=== PATIENT | female | born 1965 | race Caucasian/White ===

== ENCOUNTER 2022-09-10 09:29 | Outpatient (OUT) | payer OTHER, SELFPAY ==
[2022-09-10 11:02] LABS: Cholesterol 225 mg/dL (<=200); HDL Cholesterol 75 mg/dL (40-60); Triglycerides 60 mg/dL (<=150)
== END 2022-09-10 09:30 ==
LOC: LAB 09:33
PROVIDERS: PCP Family Medicine; Visit Provider Internal Medicine Cardiovascular Disease
DX: E78.5 Hyperlipidemia, unspecified (principal)
CPT/HCPCS: 36415; 80061

== ENCOUNTER 2022-10-03 07:33 | Outpatient (OUT) | payer OTHER, SELFPAY ==
[2022-10-03 08:32] LABS: Estimated Average Glucose 111 mg/dL; Glycohemoglobin A1C 5.5 % (4.5-6.2)
[2022-10-03 08:35] LABS: Basophils Absolute Auto 0.1 10^3/uL (0.0-0.1); Basophils Percent Auto 0.9 % (0.2-2.0); Eosinophils Absolute Auto 0.2 10^3/uL (0.0-0.7); Eosinophils Percent Auto 3.3 % (0.9-7.0); Hematocrit 42.5 % (36.0-48.0); Hemoglobin 13.8 g/dL (12.0-16.0); Immature Granulocytes Abs Auto 0.01 10^3/uL (0.00-0.03); Immature Granulocytes Pct Auto 0.2 % (0.0-0.5); Lymphocytes Absolute Auto 1.5 10^3/uL (1.2-3.8); Mean Corpuscular HGB Conc 32.5 g/dL (29.9-35.2); Mean Corpuscular Hemoglobin 29.4 pg (26.7-34.0); Mean Corpuscular Volume 90.4 fL (81.0-99.0); Mean Platelet Volume 9.8 fL (9.5-13.5); Monocytes Absolute Auto 0.4 10^3/uL (0.3-0.8); Monocytes Percent Auto 6.6 % (1.7-12.0); Neutrophils Absolute Auto 3.3 10^3/uL (1.4-6.5); Platelet Count 338 10^3/uL (150-450); Red Cell Distribution Width 12.3 % (11.0-15.0); White Blood Count 5.4 10^3/uL (4.0-11.0)
[2022-10-03 08:50] LABS: Bilirubin Urine NEGATIVE (NEGATIVE); Blood Urine MODERATE (NEGATIVE); Clarity Urine CLEAR (CLEAR); Color Urine LT. YELLOW (YELLOW); Glucose Urine UA NEGATIVE (NEGATIVE); Ketones Urine NEGATIVE (NEGATIVE); Leukocyte Esterase Urine TRACE (NEGATIVE); Nitrite Urine NEGATIVE (NEGATIVE); Protein Urine NEGATIVE (NEG/TRACE); Specific Gravity Urine 1.015 (1.005-1.025); Urobilinogen Urine 0.2 EU/dL (0.2-1.0)
[2022-10-03 08:57] LABS: Bacteria Urine TRACE #/HPF (NONE SEEN); Cast Seen? NONE SEEN #/LPF (NONE SEEN); Crystals Seen? None Seen #/HPF (None Seen); Mucus Urine NONE SEEN (NONE SEEN); Squamous Epithelial Cell Urine FEW #/LPF (NONE/RARE); WBC Urine 0-2 #/HPF (NONE SEEN)
[2022-10-03 10:54] LABS: Alanine Aminotransferase 31 U/L (14-59); Albumin Globulin Ratio 1.3; Albumin Level 4.2 g/dL (3.4-5.0); Alkaline Phosphatase 63 U/L (46-116); Aspartate Amino Transferase 18 U/L (15-37); Bilirubin Total 0.4 mg/dL (0.2-1.0); Calcium 9.2 mg/dL (8.5-10.1); Carbon Dioxide 29.4 mmol/L (21.0-32.0); Chloride 105 mmol/L (98-107); Estimated GFR (African America >60 (>=60); Estimated GFR (Non-African Ame >60 (>=60); Globulin 3.3 g/dL; Glucose 98 mg/dL (74-106); Potassium 4.4 mmol/L (3.5-5.1); Sodium 141 mmol/L (136-145); Thyroid Stimulating Hormone 1.003 uIU/mL (0.358-3.740); Total Protein 7.5 g/dL (6.4-8.2)
[2022-10-03 11:01] LABS: Free T4 1.01 ng/dL (0.76-1.46)
[2022-10-04 12:09] LABS: Insulin 7.9 uIU/mL (2.6-24.9)
[2022-10-04 14:32] LABS: Chol HDL Ratio 3.2; Cholesterol 216 mg/dL (<=200); HDL Cholesterol 67 mg/dL (40-60); Triglycerides 66 mg/dL (<=150); VLDL CHOLESTEROL 13.2 mg/dL
== END 2022-10-03 07:34 | disposition home or self-care (01) ==
LOC: LAB 07:35
PROVIDERS: PCP Family Medicine; Visit Provider Family Medicine
DX: Z00.00 Encounter for general adult medical examination without abnormal findings (principal)
CPT/HCPCS: 36415; 80053; 80061; 81001; 83036; 83525; 83540; 84439; 84443; 85025; 87086; 87150; 87186

== ENCOUNTER 2022-10-14 16:22 | Outpatient (OUT) | payer OTHER, SELFPAY ==
[2022-10-14 16:58] LABS: Bilirubin Urine NEGATIVE (NEGATIVE); Blood Urine MODERATE (NEGATIVE); Clarity Urine CLEAR (CLEAR); Color Urine LT. YELLOW (YELLOW); Glucose Urine UA NEGATIVE (NEGATIVE); Ketones Urine NEGATIVE (NEGATIVE); Leukocyte Esterase Urine NEGATIVE (NEGATIVE); Nitrite Urine NEGATIVE (NEGATIVE); Protein Urine NEGATIVE (NEG/TRACE); Urobilinogen Urine 0.2 EU/dL (0.2-1.0); pH Urine 5.5 (5.0-9.0)
[2022-10-14 17:04] LABS: Bacteria Urine NONE SEEN #/HPF (NONE SEEN); Cast Seen? NONE SEEN #/LPF (NONE SEEN); Crystals Seen? None Seen #/HPF (None Seen); Mucus Urine NONE SEEN (NONE SEEN); Squamous Epithelial Cell Urine FEW #/LPF (NONE/RARE); Urine Culture Indicated ALREADY ORDERED; WBC Urine NONE SEEN #/HPF (NONE SEEN)
== END 2022-10-14 16:23 | disposition home or self-care (01) ==
LOC: LAB 16:23
PROVIDERS: PCP Family Medicine; Visit Provider Family Medicine
DX: N30.00 Acute cystitis without hematuria (principal)
CPT/HCPCS: 81001; 87086

== ENCOUNTER 2022-11-06 10:05 | Outpatient (OUT) | payer OTHER, SELFPAY ==
[2022-11-06 10:31] LABS: Bilirubin Urine NEGATIVE (NEGATIVE); Blood Urine MODERATE (NEGATIVE); Clarity Urine CLEAR (CLEAR); Color Urine LT. YELLOW (YELLOW); Glucose Urine UA NEGATIVE (NEGATIVE); Ketones Urine NEGATIVE (NEGATIVE); Leukocyte Esterase Urine MODERATE (NEGATIVE); Nitrite Urine NEGATIVE (NEGATIVE); Protein Urine NEGATIVE (NEG/TRACE); Specific Gravity Urine <=1.005 (1.005-1.025); Urobilinogen Urine 0.2 EU/dL (0.2-1.0)
== END 2022-11-06 10:06 | disposition home or self-care (01) ==
LOC: LAB 10:06
PROVIDERS: PCP Family Medicine
DX: R39.9 Unspecified symptoms and signs involving the genitourinary system (principal)
CPT/HCPCS: 81003; 87086

== ENCOUNTER 2023-02-08 07:48 | Outpatient (OUT) | payer OTHER, SELFPAY ==
[2023-02-08 08:22] LABS: Basophils Percent Auto 0.2 % (0.2-2.0); Eosinophils Absolute Auto 0.4 10^3/uL (0.0-0.7); Eosinophils Percent Auto 3.4 % (0.9-7.0); Hemoglobin 13.8 g/dL (12.0-16.0); Immature Granulocytes Abs Auto 0.17 10^3/uL (0.00-0.03); Immature Granulocytes Pct Auto 1.3 % (0.0-0.5); Lymphocytes Absolute Auto 2.9 10^3/uL (1.2-3.8); Lymphocytes Percent Auto 22.8 % (20.5-60.0); Mean Corpuscular HGB Conc 32.9 g/dL (29.9-35.2); Mean Corpuscular Volume 88.2 fL (81.0-99.0); Mean Platelet Volume 9.5 fL (9.5-13.5); Monocytes Absolute Auto 0.8 10^3/uL (0.3-0.8); Monocytes Percent Auto 6.4 % (1.7-12.0); Neutrophils Absolute Auto 8.5 10^3/uL (1.4-6.5); Neutrophils Percent Auto 65.9 % (43.0-75.0); Platelet Count 350 10^3/uL (150-450); Red Blood Count 4.76 10^6/uL (4.20-5.40); Red Cell Distribution Width 12.6 % (11.0-15.0); White Blood Count 12.8 10^3/uL (4.0-11.0)
[2023-02-08 08:30] LABS: Mono Screen NEGATIVE (NEGATIVE)
[2023-02-08 08:41] LABS: Estimated Average Glucose 128 mg/dL; Glycohemoglobin A1C 6.1 % (4.5-6.2)
[2023-02-08 08:57] LABS: Alanine Aminotransferase 36 U/L (14-59); Albumin Globulin Ratio 1.1; Albumin Level 3.4 g/dL (3.4-5.0); Alkaline Phosphatase 65 U/L (46-116); Anion Gap 11.4; Aspartate Amino Transferase 14 U/L (15-37); BUN Creatinine Ratio 25.3; Bilirubin Total 0.3 mg/dL (0.2-1.0); Calcium 8.3 mg/dL (8.5-10.1); Carbon Dioxide 28.8 mmol/L (21.0-32.0); Chloride 103 mmol/L (98-107); Creatine Kinase 37 U/L (26-192); Estimated GFR (African America >60 (>=60); Estimated GFR (Non-African Ame >60 (>=60); Free T3 3.22 pg/mL (2.18-3.98); Globulin 3.2 g/dL; Glucose 105 mg/dL (74-106); Potassium 4.2 mmol/L (3.5-5.1); Sodium 139 mmol/L (136-145); Thyroid Stimulating Hormone 1.465 uIU/mL (0.358-3.740); Total Protein 6.6 g/dL (6.4-8.2)
[2023-02-10 11:13] LABS: Insulin 12.9 uIU/mL (2.6-24.9)
[2023-02-10 16:09] LABS: EBV Ab VCA, IgG 54.4 U/mL (0.0-17.9); EBV Ab VCA, IgM <36.0 U/mL (0.0-35.9); EBV Nuclear Antigen Ab, IgG <18.0 U/mL (0.0-17.9)
== END 2023-02-08 07:49 | disposition home or self-care (01) ==
PROVIDERS: PCP Family Medicine; Visit Provider Family Medicine
DX: U07.1 COVID-19 (principal); R53.83 Other fatigue; M79.10 Myalgia, unspecified site; R61 Generalized hyperhidrosis
CPT/HCPCS: 36415; 80053; 82306; 82550; 82607; 82746; 83036; 83525; 83540; 83880; 84436; 84443; 84481; 85025; 86308

== ENCOUNTER 2023-04-25 07:21 | Outpatient (OUT) | payer OTHER, SELFPAY ==
--- OUTSIDE RECORDS SUMMARY | 2023-04-25 07:24 | XMS_ITS | CCD ---
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 Name Role Phone VAMSI SERRANO Unavailable Unavailable MASTJANNA Unavailable Unavailable Mast, Janna E Unavailable Unavailable Unavailable Sera Lambert Primary Care Unavailable Jose Dangelo Attending Unavailable Jose Dangelo Admitting Unavailable Sera Lambert Primary Care Physician [phone] NILL ., DR LEMONS Admitting Unavailable NILL ., DR LEMONS Attending Unavailable HOY ., DR ZAMORA Primary Care Unavailable NILL ., DR LEMONS Consulting Unavailable SPENCER RAY Consulting Unavailable FAIZAN WILD Unavailable NILLCristo Attending Unavailable Sera Lambert Referring Unavailable Sera Lambert Referring Unavailable NILLCristo Attending Unavailable SCOTLCristo Attending Unavailable Cristo CROCKER Attending Unavailable Maggie, Dr. Noel Referring Unavaila ble Trabsusana, Dr. Noel Attending Unavaila ble Catherine, Dr. Janna Marti Primary Care Unavailabl PETE Reyna Admitting Unavailable PETE ROD Attending Unavailable SERA LAMBERT Primary Care Unavailable FAIZAN SNYDER AKHIL [id number] SERA Jordan Primary Care Unavailable SERA LAMBERT Primary Care Unavailable PETE ROD Referring Unavailable Allergies Allergy Classification Reported Allergen(s) Allergy Type Date of Onset Reaction(s) Facility (6 sources) Amoxicillin; Translations: [amoxicillin] Drug Allergy [facility] (disorder) [facility] (3 sources) atorvastatin; Translations: [atorvastatin] Drug Allergy [facility] y 250 DO Work Phone: (2 sources) ezetimibe; Translations: [Zetia] Drug Allergy [facility] y 250 DO Work Phone: (4 sources) Hmg-Coa Reductase Inhibitors (Statins); Translations: [Statins] Allergy to drug (finding) [facility] Repository (3 sources) oxyCODONE; Translations: [oxycodone] Drug Allergy [facility] y 250 DO Work Phone: (3 sources) Pravastatin; Translations: [Pravastatin Sodium TABS] Drug Allergy [facility] y 250 DO Work Phone: (1 source) Amoxicillin Drug Allergy 02-22-20 [facility] Repository (1 source) Aspirin Drug Allergy 02-22-20 [facility] Repository (2 sources) Codeine; Translations: [codeine] Drug Allergy 02-22-20 17 [facility] Repository (1 source) oxyCODONE Drug Allergy 02-22-20 [facility] Rep[facility] (3 sources) Acetaminophen / oxyCODONE; Translations: [acetaminophen-oxy codone] Drug Allergy Projectile vomiting (disorder) [facility] (3 sources) Aspirin / oxyCODONE; Translations: [aspirin-oxycodone ] Drug Allergy Projectile vomiting (disorder) [facility] (2 sources) Codeine; Translations: [codeine] Drug Allergy Edema (finding) [facility] [place] (2 sources) HMG-CoA reductase inhibitor; Translations: [statins] Drug allergy Unknown (qualifier value) [facility] (4 sources) Latex; Translations: [latex] Allergy to substance 12-23-19 15 Redness, Itching [facility] (3 sources) NITROFURANTOIN, MACROCRYSTALS / Nitrofurantoin, Monohydrate; Translations: [nitrofurantoin] Drug Allergy Joint pain (finding), Cutaneous eruption (morphologic abnormality) [facility] (1 source) Acetaminophen / oxyCODONE Drug Allergy 05-13-19 23 [facility] Repository (1 source) Adhesive agent Drug allergy (disorder) 12-23-19 15 [facility] Rep[facility] (1 source) Amoxicillin Drug Allergy 07-28-19 13 [facility] Repository (1 source) black walnut pollen extract Drug Allergy 05-13-19 23 [facility] Rep[facility] (1 source) Codeine Drug Allergy 07-28-19 13 [facility] Rep[facility] (1 source) Nitrofurantoin Drug Allergy 12-23-19 15 [facility] Rep[facility] (1 source) bandaids; Translations: [bandaids] Propensity to adverse reactions (disorder) [facility] Repository Medications Current Medications Medication Drug Class(es) Dates Sig (Normalized) Sig (Original) aspirin 81 mg delayed release oral tablet (5 sources) Platelet Aggregation Inhibitor, Nonsteroidal Anti-inflammatory Drug Start: 05-03-2022 take 1 tablet by mouth once daily aspirin 81 mg Oral EC Tab 81 mg = 1 tab(s), Oral, Daily, Refills(s) 0 Start Date: 05/03/22 Status: Ordered ezetimibe 10 mg oral tablet (5 sources) Dietary Cholesterol Absorption Inhibitor Start: 04-29-2022 take 1 tablet by mouth once daily Zetia 10 mg Tab 10 mg = 1 tab(s), Oral, Daily, Refills(s) 0 Start Date: 04/29/22 Status: Ordered Miralax (2 sources) Osmotic Laxative Start: 05-03-2022 take 17 g by mouth once daily MiraLax 17 gm, Oral, Daily, Refill(s) 0 Start Date: 05/03/22 Status: Ordered Completed/Discontinued Medications Medication Drug Class(es) Dates Sig (Normalized) Sig (Original) loratadine 10 mg oral tablet (3 sources) take 1 tablet by david th once daily Loratadine 10 MG Oral Tablet TAKE 1 TABLET DAILY. Quantity: 0 Refills: 0 Ordered: 22-May-2021 DO Active Problems Active Problems Problem Classification Problem Date Documented Da te Episodic/Chronic Abdominal hernia (2 sources) Diaphragmatic hernia without obstruction or gangrene; Translations: [Diaphragmatic hernia] Onset: 3 Episodic Abdominal pain (7 sources) Epigastric pain; Translations: [Epigastric pain] Onset: 3 Episodic Allergic reactions (1 source) Unspecified contact dermatitis, unspecified cause; Translations: [Unspecified contact dermatitis, unspecified cause] Onset: 3 Episodic Anal and rectal conditions (2 sources) Disorder of rectum 04-29-2022 Episodic Anxiety disorders (3 sources) Anxiety; Translations: [Anxiety disorder, unspecified] Onset: 3 10-25-2018 Chronic Calculus of urinary tract (2 sources) Kidney stone 07-27-2012 Episodic Coronary atherosclerosis and other heart disease (6 sources) Ischemic cardiomyopathy; Translations: [Generalized ischemic myocardial dysfunction] Onset: 8 09-02-2017 Chronic Disorders of lipid metabolism (3 sources) Hyperlipidemia; Translations: [Other and unspecified hyperlipidemia] Chronic Diverticulosis and diverticulitis (3 sources) Diverticulosis of large intestine without perforation or abscess without bleeding; Translations: [Diverticula of intestine] Onset: 3 Chronic Esophageal disorders (6 sources) Gastroesophageal reflux disease without esophagitis; Translations: [Gastro-esophageal reflux disease without esophagitis] Onset: 3 Chronic Gastritis and duodenitis (1 source) Unspecified chronic gastritis without bleeding; Translations: [UNS CHRONIC GASTRITIS W/O BLEEDING] Onset: 3 Chronic Genitourinary symptoms and ill-defined conditions (3 sources) Unspecified urinary incontinence; Translations: [Unspecified urinary incontinence] Onset: 3 Chronic Genitourinary symptoms and ill-defined conditions (13 sources) Dysuria; Translations: [H/O: urethral stricture] Onset: 3 10-25-2018 Episodic Mood disorders (2 sources) Depressive disorder 10-25-2018 Chronic Mood disorders (1 source) Mood disorders; Translations: [DEPRESSION UNSPECIFIED] Onset: 3 Other aftercare (1 source) 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; Translations: [[employer] CURRENT USE OF ASPIRIN] Onset: 3 Episodic Other aftercare (1 source) Other intermediate (current) drug therapy; Translations: [[employer] CURRENT DRUG THERAPY] Onset: 3 Episodic Other and ill-defined heart disease (5 sources) Takotsubo cardiomyopathy; Translations: [Takotsubo syndrome] 09-02-2017 Chronic Other and unspecified benign neoplasm (2 sources) Adrenal adenoma 04-29-2022 Episodic Other circulatory disease (2 sources) Low blood pressure 04-29-2022 Episodic Other connective tissue disease (2 sources) Plantar fasciitis 04-29-2022 Episodic Other female genital disorders (2 sources) Dysplasia of cervix 09-02-2017 Episodic Other gastrointestinal disorders (3 sources) Altered bowel function; Translations: [Change in bowel habit] Onset: 3 Episodic Other gastrointestinal disorders (2 sources) Constipation 04-29-2022 Episodic Other gastrointestinal disorders (1 source) Change in bowel habit; Translations: [CHANGE IN BOWEL HABIT] Onset: 3 Episodic Other nervous system disorders (1 source) Other acute postprocedural pain; Translations: [Other acute postprocedural pain] Onset: 3 Episodic Other nutritional; endocrine; and metabolic disorders (5 sources) Overweight in adulthood with body mass index of 25 or more but less than 30; Translations: [Overweight] 05-03-2022 Episodic Other upper respiratory disease (2 sources) Seasonal allergy 10-25-2018 Chronic Prolapse of female genital organs (9 sources) Cystocele, midline; Translations: [Rectocele] Onset: 3 Chronic Residual codes; unclassified (1 source) Acquired absence of other specified parts of digestive tract; Translations: [ACQ ABSENCE OTH PART DIGESTV TRACT] Onset: 3 Episodic Spondylosis; intervertebral disc disorders; other back problems (2 sources) Cervical disc disorder 04-29-2022 Chronic Unclassified (2 sources) Ischemic cardiomyopathy / I25.5(ICD-9) Onset: 8 Unclassified (1 source) Takotsubo syndrome / I51.81(ICD-9) Onset: 8 Unclassified (1 source) Encounter for screening mammogram for malignant neoplasm of breast; Translations: [Encounter for screening mammogram for malignant neoplasm of breast] Onset: 2 Unclassified (2 sources) Finding of sensation of bladder 10-25-2018 Past or Other Problems Problem Classification Problem Date Documented Da te Episodic/Chronic Unclassified (3 sources) Never smoked tobacco; Translations: [Never a smoker] Results Test Name Value Interpretation Reference Range Facility Basic Metabolic Profon 10-25 Anion gap [Moles/Vol] 10 mmol/L Normal 9-17 [facility] Comment on above: Performed By: #### BMP, CDP, LIP, LIVP, TROPI #### [place] [id number] [employer] Specialist: Kris Pardo MD Calcium [Mass/Vol] 9.3 mg/dL Normal 8.6-10.4 [facility] Comment on above: Performed By: #### BMP, CDP, LIP, LIVP, TROPI #### [place] [id number] [employer] Specialist: rKis Pardo MD Chloride [Moles/Vol] 101 mmol/L Normal 98-107 [facility] Comment on above: Performed By: #### BMP, CDP, LIP, LIVP, TROPI #### [place] [id number] [employer] Specialist: Kris Pardo MD CO2 [Moles/Vol] 28 mmol/L Normal 20-31 [facility] Comment on above: Performed By: #### BMP, CDP, LIP, LIVP, TROPI #### [place] [id number] [employer] Specialist: Kris Pardo MD Creatinine [Mass/Vol] 0.6 mg/dL Normal 0.5-0.9 [facility] Comment on above: Performed By: #### BMP, CDP, LIP, LIVP, TROPI #### [place] [id number] [employer] Specialist: Kris Pardo MD GFR/1.73 sq M.predicted among non-blacks MDRD (S/P/Bld) [Vol rate/Area] mL/min/{1.73_m2} Normal >60 [facility] Comment on above: Result Comment: These results are not intended for use in patients <18 years of age. eGFR results are calculated without a race factor using the 2020 CKD-EPI equation. Careful clinical correlation is recommended, particularly when comparing to results calculated using previous equations. The CKD-EPI equation is less accurate in patients with extremes of muscle mass, extra-renal metabolism of creatine, excessive creatine ingestion, or following therapy that affects renal tubular secretion. Performed By: #### B MP, CDP, LIP, LIVP, TROPI #### [place] [id number] [employer] Specialist: Kris Pardo MD Glucose [Mass/Vol] 102 mg/dL High 70-99 [facility] Comment on above: Performed By: #### BMP, CDP, LIP, LIVP, TROPI #### [place] [id number] [employer] Specialist: Kris Pardo MD Potassium [Moles/Vol] 4.3 mmol/L Normal 3.7-5.3 [facility] Comment on above: Performed By: #### BMP, CDP, LIP, LIVP, TROPI #### [place] [id number] [employer] Specialist: Kris Pardo MD Sodium [Moles/Vol] 139 mmol/L Normal 135-144 [facility] Comment on above: Performed By: #### BMP, CDP, LIP, LIVP, TROPI #### [place] [id number] [employer] Specialist: Kris Pardo MD Urea nitrogen [Mass/Vol] 13 mg/dL Normal 6-20 [facility] Comment on above: Performed By: #### BMP, CDP, LIP, LIVP, TROPI #### [place] [id number] [employer] Specialist: Kris Pardo MD CBC with Diffon 10-25-2022 Abs. Basophil 0.10 k/uL Normal 0.0-0.2 [facility] Comment on above: Performed By: #### BMP, CDP, LIP, LIVP, TROPI #### [place] [id number] [employer] Specialist: Kris Pardo MD Abs.Neutrophil (Seg) 7.10 k/uL Normal 1.8-7.7 [facility] Comment on above: Performed By: #### BMP, CDP, LIP, LIVP, TROPI #### [place] [id number] [employer] Specialist: Kris Pardo MD Basophils/100 WBC (Bld) 1 % Normal 0-2 [facility] Comment on above: Performed By: #### BMP, CDP, LIP, LIVP, TROPI #### [place] [id number] [employer] Specialist: Kris Pardo MD Eosinophils (Bld) [#/Vol] 0.50 10*3/uL High 0.0-0.4 [facility] Comment on above: Performed By: #### BMP, CDP, LIP, LIVP, TROPI #### [place] [id number] [employer] Specialist: Kris Pardo MD Eosinophils/100 WBC (Bld) 5 % High 1-4 [facility] Comment on above: Performed By: #### BMP, CDP, LIP, LIVP, TROPI #### [place] [id number] [employer] Specialist: Kris Pardo MD Erythrocyte distribution width (RBC) [Ratio] 12.9 % Normal 12.5-15.4 [facility] Comment on above: Performed By: #### BMP, CDP, LIP, LIVP, TROPI #### [place] [id number] [employer] Specialist: Kris Pardo MD Hematocrit (Bld) [Volume fraction] 36.9 % Normal 36-46 [facility] Comment on above: Performed By: #### BMP, CDP, LIP, LIVP, TROPI #### [place] [id number] [employer] Specialist: Kris Pardo MD Hemoglobin (Bld) [Mass/Vol] 12.5 g/dL Normal 12.0-16.0 [facility] Comment on above: Performed By: #### BMP, CDP, LIP, LIVP, TROPI #### [place] [id number] [employer] Specialist: Kris Pardo MD Lymphocytes (Bld) [#/Vol] 1.20 10*3/uL Normal 1.0-4.8 [facility] Comment on above: Performed By: #### BMP, CDP, LIP, LIVP, TROPI #### [place] [address] [employer] Specialist: Kris Pardo MD Lymphocytes/100 WBC (Bld) 13 % Low 24-44 [facility] Comment on above: Performed By: #### BMP, CDP, LIP, LIVP, TROPI #### [place] [id number] [employer] Specialist: Kris Pardo MD MCH (RBC) [Entitic mass] 29.9 pg Normal 26-34 [facility] Comment on above: Performed By: #### BMP, CDP, LIP, LIVP, TROPI #### [place] [id number] [employer] Specialist: Kris Pardo MD MCHC (RBC) [Mass/Vol] 33.9 g/dL Normal 31-37 [facility] Comment on above: Performed By: #### BMP, CDP, LIP, LIVP, TROPI #### [place] [id number] [employer] Specialist: Kris Pardo MD MCV (RBC) [Entitic vol] 88.0 fL Normal 80-100 [facility] Comment on above: Performed By: #### BMP, CDP, LIP, LIVP, TROPI #### [place] [id number] [employer] Specialist: Kris Pardo MD Monocytes (Bld) [#/Vol] 0.60 10*3/uL Normal 0.1-1.2 [facility] Comment on above: Performed By: #### BMP, CDP, LIP, LIVP, TROPI #### [place] [id number] [employer] Specialist: Kris Pardo MD Monocytes/100 WBC (Bld) 6 % Normal 2-11 [facility] Comment on above: Performed By: #### BMP, CDP, LIP, LIVP, TROPI #### [place] [id number] [employer] Specialist: Kris Pardo MD Neutrophil (Seg) 75 % High 36-66 [facility] Comment on above: Performed By: #### BMP, CDP, LIP, LIVP, TROPI #### [place] [id number] [employer] Specialist: Kris Pardo MD Platelet mean volume (Bld) [Entitic vol] 7.6 fL Normal 6.0-12.0 [facility] Comment on above: Performed By: #### BMP, CDP, LIP, LIVP, TROPI #### [place] [id number] [employer] Specialist: Kris Pardo MD Platelets (Bld) [#/Vol] 287 10*3/uL Normal 140-450 [facility] Comment on above: Performed By: #### BMP, CDP, LIP, LIVP, TROPI #### [place] [id number] [employer] Specialist: Kris Pardo MD RBC (Bld) [#/Vol] 4.20 10*6/uL Normal 4.0-5.2 [facility] Comment on above: Performed By: #### BMP, CDP, LIP, LIVP, TROPI #### [place] [id number] [employer] Specialist: Kris Pardo MD WBC (Bld) [#/Vol] 9.4 10*3/uL Normal 3.5-11.0 [facility] Comment on above: Performed By: #### BMP, CDP, LIP, LIVP, TROPI #### [place] [id number] [employer] Specialist: Kris Pardo MD CT ABDOMEN PELVIS W IV CONTR Carol 10-25-2022 CT ABDOMEN PELVIS W IV CONTRAST EXAMINATION: CT OF THE ABDOMEN AND PELVIS WITH CONTRAST 10/25/2022 2:13 pm TECHNIQUE: CT of the abdomen and pelvis was performed with the administration of intravenous contrast. Multiplanar reformatted images are provided for review. Automated exposure control, iterative reconstruction, and/or weight based adjustment of the mA/kV was utilized to reduce the radiation dose to as low as reasonably achievable. COMPARISON: None. HISTORY: ORDERING SYSTEM PROVIDED HISTORY: post op hysterectomy day 4 - abdominal and low back pain TECHNOLOGIST PROVIDED HISTORY: post op hysterectomy day 4 - abdominal and low back pain Decision Support Exception - unselect if not a suspected or confirmed emergency medical condition->Emergency Medical Condition (MA) Reason for Exam: post op hyst pain FINDINGS: Lower Chest: The lung bases are without consolidation or effusion. The visualized cardiac structures are unremarkable. Organs: The liver and spleen are normal size and overall attenuation. The gallbladder has been removed. The pancreas and adrenal glands are unremarkable. The kidneys are without obstructive uropathy. The urinary bladder contains a Jarvis catheter. GI/Bowel: The stomach is unremarkable. Loops of small bowel are normal in caliber without evidence for obstruction. The colon contains air and fecal residue. There are uncomplicated diverticula. There is no free air or free fluid. Pelvis: There is minimal nonspecific stranding within the pelvis that is likely postoperative in nature. Peritoneum/Retroperitoneum: The psoas muscles are symmetric. The abdominal aorta is normal in caliber. The inferior vena cava is unremarkable. There is no retroperitoneal or mesenteric adenopathy. Bones/Soft Tissues: The extra-abdominal soft tissues are unremarkable. There is no acute osseous abnormality. IMPRESSION: No acute abdominal or pelvic abnormality. Minimal nonspecific stranding in the pelvis that is likely postoperative in nature. Few scattered uncomplicated colonic diverticula. Interpreted by: Saeed Ortega MD Signed by: Saeed Ortega MD 10/25/22 Final result Normal [facility] Lipaseon 10-25-2022 Lipase [Catalytic activity/Vol] 26 U/L Normal 13-60 [facility] Comment on above: Performed By: #### BMP, CDP, LIP, LIVP, TROPI #### [place] [id number] [place] [address] [employer] Specialist: Kris Pardo MD Liver Profileon 10-25-2022 Albumin [Mass/Vol] 4.2 g/dL Normal 3.5-5.2 [facility] Comment on above: Performed By: #### BMP, CDP, LIP, LIVP, TROPI #### [facility] [address] [place] [address] [employer] Specialist: Kris Pardo MD Albumin/Glob Ratio 1.7 Normal 1.0-2.5 [facility] Comment on above: Performed By: #### BMP, CDP, LIP, LIVP, TROPI #### [place] [id number] [employer] Specialist: Kris Pardo MD Alkaline Phos 67 U/L Normal 35-104 [facility] Comment on above: Performed By: #### BMP, CDP, LIP, LIVP, TROPI #### [place] [id number] [employer] Specialist: Kris Pardo MD ALT [Catalytic activity/Vol] 23 U/L Normal 5-33 [facility] Comment on above: Performed By: #### BMP, CDP, LIP, LIVP, TROPI #### [place] [id number] [employer] Specialist: Kris Pardo MD AST [Catalytic activity/Vol] 21 U/L Normal <32 [facility] Comment on above: Performed By: #### BMP, CDP, LIP, LIVP, TROPI #### [place] [id number] [employer] Specialist: Kris Pardo MD Bilirubin [Mass/Vol] 0.3 mg/dL Normal 0.3-1.2 [facility] Comment on above: Performed By: #### BMP, CDP, LIP, LIVP, TROPI #### [place] [id number] [employer] Specialist: Kris Pardo MD Bilirubin, Indirect 0.2 mg/dL Normal 0.0-1.0 [facility] Comment on above: Performed By: #### BMP, CDP, LIP, LIVP, TROPI #### [place] [id number] [employer] Specialist: Kris Pardo MD Bilirubin.indire ct [Mass/Vol] 0.1 mg/dL Normal <0.3 [facility] Comment on above: Performed By: #### BMP, CDP, LIP, LIVP, TROPI #### [place] [id number] [employer] Specialist: Kris Pardo MD Protein [Mass/Vol] 6.7 g/dL Normal 6.4-8.3 [facility] Comment on above: Performed By: #### BMP, CDP, LIP, LIVP, TROPI #### [place] [id number] [employer] Specialist: Kris Pardo MD Troponinon 10-25-2022 Troponin, High Sens 7 ng/L Normal 0-14 [facility] Comment on above: Result Comment: High Sensitivity Troponi n values cannot be compared with other Troponin methodologies. Performed By: #### B MP, CDP, LIP, LIVP, TROPI #### [place] [id number] [employer] Specialist: Kris Pardo MD UA w/Reflex Cultureon 2022 Bilirubin, SemiQt,Ur Negative Normal NEG [facility] Comment on above: Performed By: #### TYS #### [place] [address] [employer] Specialist: Kris Pardo MD Blood, Urine MODERATE Abnormal NEG [facility] Comment on above: Performed By: #### TYS #### [place] [id number] [employer] Specialist: Kris Pardo MD Clarity (U) Clear Normal CLEAR [facility] Comment on above: Performed By: #### TYS #### [place] [id number] [employer] Specialist: Kris Pardo MD Color (U) Yellow Normal YEL [facility] Comment on above: Performed By: #### TYS #### [address] [id number] [employer] Specialist: Kris Pardo MD Glucose Ql (U) Negative Normal NEG [facility] Comment on above: Performed By: #### TYS #### [place] [id number] [employer] Specialist: Kris Pardo MD Ketones Ql (U) Negative Normal NEG [facility] Comment on above: Performed By: #### TYS #### [place] [address] [employer] Specialist: Kris Pardo MD Leukocyte esterase Test strip Ql (U) Negative Normal NEG [facility] Comment on above: Performed By: #### TYS #### [place] [address] [employer] Specialist: Kris Pardo MD Nitrite,Ur Negative Normal NEG [facility] Comment on above: Performed By: #### TYS #### [place] [address] [employer] Specialist: Kris Pardo MD PH,Ur 7.0 Normal 5.0-8.0 [facility] Comment on above: Performed By: #### TYS #### [place] [id number] [employer] Specialist: Kris Pardo MD Protein Ql (U) Negative Normal NEG [facility] Comment on above: Performed By: #### TYS #### [place] [address] [employer] Specialist: Kris Pardo MD Spec. [place],Ur 1.006 Normal 1.005-1.030 [facility] Comment on above: Performed By: #### TYS #### [place] [address] [employer] Specialist: Kris Pardo MD Urobilinogen,Ur Normal Normal 0.0-1.0 [facility] Comment on above: Performed By: #### TYS #### [place] [address] [employer] Specialist: Kris Pardo MD Urinalysis,Microon 3 Bacteria FEW Abnormal NONE [facility] Comment on above: Performed By: #### TYS #### [place] [address] [employer] Specialist: Kris Pardo MD Epithelial cells LM Ql (Urine sed) 0 TO 2 Normal 0-5 [facility] Comment on above: Performed By: #### TYS #### [place] [address] [employer] Specialist: Kris Pardo MD Other Observations Utilizing a urinalysis as the only screening method to exclude a potential Abnormal NREQ [facility] Comment on above: Result Comment: uropathogen can be unrel iable in many patient populations. Rapid screening tests are less sensitive than culture and if UTI is a clinical possibility, culture should be considered despite a negative urinalysis. Performed By: #### T YS #### [place] [address] [employer] Specialist: Kris Pardo MD Urine RBC's 20 TO 50 Normal 0-2 [facility] Comment on above: Performed By: #### TYS #### [place] [address] [employer] Specialist: Kris Pardo MD Urine WBC's 0 TO 2 Normal 0-5 [facility] Comment on above: Performed By: #### TYS #### [place] [address] [employer] Specialist: Kris Pardo MD Hgb/Hcton 10-21-2022 Hematocrit (Bld) [Volume fraction] 38.0 % Normal 36-46 [facility] Comment on above: Performed By: #### HH #### [place] [address] [employer] Specialist: Kris Pardo MD Hemoglobin (Bld) [Mass/Vol] 12.6 g/dL Normal 12.0-16.0 [facility] Comment on above: Performed By: #### HH #### [place] [address] [employer] Specialist: Kris Pardo MD OPERATIVE REPORTon OPERATIVE REPORT [address] [address] OPERATIVE REPORT PATIENT NAME: CHERYL HECTOR : 1965 MED REC NO: [id number] ROOM: ACCOUNT NO: [id number] ADMIT DATE: 10/21/2022 PROVIDER: Pete Rod DO DATE OF PROCEDURE: 10/21/2022 INDICATIONS FOR SURGERY: Symptomatic pelvic organ prolapse unamenable to conservative therapy, stress urinary incontinence with nonemergent intrinsic sphincter deficiency. PREOPERATIVE DIAGNOSES: Grade 3 uterine prolapse with grade 3 cystocele, grade 2 rectocele, poor tissue turgor, stress urinary incontinence with nonemergent intrinsic sphincter deficiency, perineal deficiency with introital gaping. PROCEDURE PERFORMED: Robotic-assisted laparoscopic hysterectomy with bilateral salpingectomy, internal [place] culdoplasty with uterosacral suspension and enterocele repair, anterior colporrhaphy, posterior colpoperineorrhaphy for gaping perineum, cystourethroscopy with filling cystometrogram and Bulkamid transurethral bulking injection therapy. SURGEON: Pete Rod DO ASSISTANTS: Kirsten Freeman DO and Fernando , DO. ANESTHESIA: General endotracheal. FINDINGS: As above. SPECIMENS: Uterus, cervix, fallopian tubes, vaginal mucosa. COMPLICATIONS: None. BLOOD LOSS: 30 mL. DRAINS: Jarvis catheter. IMPLANTS: 2 mL of Bulkamid. COURSE: Prior to the procedure, risks and benefits of the procedure explained to the patient. The patient understood and signed informed consent under no duress or confusion. She received a preoperative antibiotic and EPC cuffs were functional. OPERATIVE PROCEDURE: She was taken back to the OR and prepped and draped in a sterile fashion in dorsal lithotomy position under general anesthesia. The urinary bladder was drained with Jarvis catheter. A [employer] uterine manipulator was placed without incident. The tissue turgor was extremely poor and her prolapse seemed to accentuate more so than in the office. The legs were lowered. With the patient in supine position and then after a surgical time-out was taken and an appropriate prepping was done, an infraumbilical skin incision was made and a Veress needle introduced into the intraperitoneal cavity. A saline test confirmed appropriate placement and adequate CO2 gas insufflation followed for an operative pneumoperitoneum. The Veress was exchanged for an 8-mm bladeless trocar, which was placed atraumatically and confirmed. The patient was tipped in steep Trendelenburg position. The 8-mm ports were placed in the right and left lower quadrants and a 12-mm port was placed in the right upper quadrant as an accessory assistant buyer port. The robot was docked with arms one and three using bipolar [place] forceps and monopolar scissors. The survey of the abdominopelvic contents was negative except for some small excrescences on the fallopian tubes, but otherwise all anatomy looked normal. There was a sizeable enterocele. The utero-ovarian, round and broad ligaments were clamped, fulgurated and cut down to the level of the uterine vessels. The bladder flap was taken down anteriorly and uterosacral ligaments were transected posteriorly. Ureters were found to be out of the way. The bladder flap was taken down to the point where the vaginal cuff could be appreciated anteriorly and posteriorly. Colpotomy was made posteriorly and 360-degree transection of the cervix away from the vaginal cuff was made to separate the uterus and cervix and delivered vaginally. Tubal structures were drawn into the midline, excised and delivered vaginally. Ovaries were benign and left in place. The vaginal cuff was then closed with [id number] mucosal-mucosal Vicryl sutures incorporating the cuff angles into the cardinal ligaments for support. A 0 PDS suture was then used to complete an internal Rae culdoplasty with high-multi suture suspension and uterosacral suspension. This helped to obliterate the enterocele sac when cinching the sutures together. The bladder was extremely thin at the dome. One could almost appreciate translucency of the Jarvis through it. We were very careful with judicious use of any cautery, but this area deemed to oversew to thicken up the muscularis and submucosa to help try and prevent any fistula for making a connection to the vaginal cuff. This was done with 2-0 Vicryl suture to buildup the dome of the bladder. No cystotomies were noted and there was approximately 1-1/2 cm of space away from that and that of the vaginal cuff. The cuff was then re-peritonealized with a running 2-0 Vicryl suture. A low-pressure test confirmed excellent hemostasis and the pelvis was irrigated and aspirated with an adequate amount of saline. Robotic arms were undocked and trocars were utilized to visualize the right upper quadrant. The fascia was closed with 1-0 Vicryl suture. No defects were noted using a Edward-Morrison fascial closure (more content not included)... Normal [facility] Surgical Pathologyon 023 Surgical Pathology (NOTE) Path Number: [id number] -- Diagnosis -- A. UTERUS, CERVIX, AND BILATERAL FALLOPIAN TUBES: - Inactive endometrium. - Focal adenomyosis. - Numerous leiomyomata. - Unremarkable cervix. - Bilateral fallopian tubes with benign paratubal cysts. B. VAGINAL MUCOSA: Benign squamous mucosa. Una Viera M.D. Electronically Signed Out kmg210/24/2022 Clinical Information Pre-op Diagnosis: URINARY INCONTINENCE, UNSPECIFIED TYPE, URINARY FREQUENCY, CYSTOCELE MIDLINE Operative Findings: UTERUS, CERVIX AND BILATERAL FALLOPIAN TUBES; VAGINAL MUCOSA Operation Performed: LAPAROSCOPIC ROBOTIC ASSISTED VAGINAL HYSTERECTOMY WITH BILATERAL SALPINGECTOMY, ANTERIOR COLPORRHAPHY AND POSTERIOR COLPOPERINEORRHAPHY CYSTOSCOPY WITH BULKAMID INJECTION tm Source of Specimen A: UTERUS, CERVIX, AND BILATERAL FALLOPIAN TUBES B: VAGINAL MUCOSA Gross Description A. CHERYL HECTOR, UTERUS, CERVIX AND BILATERAL FALLOPIAN TUBES Received in formalin is a 64 gram uterus and cervix (9.0 cm cervix-fundus x 4.0 cm cornu-cornu x 3.3 cm anterior-posterior). The uterine serosa is meza-pink and hyperemic with few anterior subserosal nodules (anterior = blue and posterior = black). There is a 3.4 x 2.8 cm pink-calvillo, wrinkled ectocervix that surrounds a 0.7 cm circular os. The specimen is bivalved to reveal a 3.5 x 2.0 cm endometrial cavity. The cavity is lined by a meza-pink, hyperemic and flat mucosa that averages < 0.1 cm in thickness. The posterior cavity demonstrates a 0.7 cm pedunculated mucosal polyp and a 0.6 cm sessile mucosal polyp. These polyps clear the nearest paracervical margin by > 2.0 cm. The mucosal polyps are superficially attached and do not grossly extend into the underlying myometrium. The myometrium is meza-pink, rubbery and measures up to 1.7 cm in thickness. Multiple intramural and subserosal nodules are identified measuring up 1.1 cm. These nodules demonstrate meza-white, whorled cut surfaces. No hemorrhage or necrosis is identified. The cervix is lined by a meza, corrugated mucosa. Sectioning of the cervix reveals meza-red, rubbery cut surfaces. Also received within the specimen container are two unoriented and detached fimbriated fallopian tubes (3.9 to 4.5 cm in length x 0.7 to 0.9 cm in diameter). The fallopian tube serosa is meza-pink and smooth with multiple paratubal cysts measuring up to 0.8 cm and contain cloudy mucoid material. Sectioning of the fallopian tubes reveals a pinpoint to stellate lumen lined by a meza-pink, soft mucosa. Shactor sections are submitted in [facility] as follows: 1 anterior cervix 2 posterior cervix 3 endomyometrial polyps 4 anterior endomyometrium 5 posterior endomyometrium 6-7 intramural and subserosal nodules, chain sales representative 8-9 one entire fallopian tube 10-12 one entire fallopian tube. B. CHERYL HECTOR VAGINAL MUCOSA Received in formalin are three fragments of meza-calvillo, wrinkled and ragged vaginal mucosa ranging from 1.6 to 7.5 cm. Sectioning reveals meza-pink, rubbery cut surfaces with no obvious masses or lesions identified. Shactor sections 1c. tm Microscopic Description A, B. Microscopic examination performed. Processing Lab: [address] [address] Interpretation Performed at [address] [address] SURGICAL PATHOLOGY CONSULTATION Patient Name: CHERYL HECTOR [facility] Rec: [id number] [facility] CONSULTING PATHOLOGISTS [facility] ANATOMIC PATHOLOGY [facility] [place], [place] [address] Normal [facility] Type + Screenon 10-21-2022 Type + Screen Sample Expiration 10/24/2022,2359 Arm Band Number [id number] ABO/Rh(D) O POSITIVE Antibody Screen NEGATIVE [facility] Comment on above: Performed By: #### TYS #### [address] [address] [employer] Specialist: Kris Pardo MD Type + Screenon 10-14-2022 Type + Screen Sample Expiration 10/24/2022,2359 Arm Band Number [id number] ABO/Rh(D) O POSITIVE Antibody Screen NEGATIVE Normal [facility] Comment on above: Performed By: #### TYS #### [address] [address] [employer] Specialist: Kris Pardo MD Office Visit (Cardiology)on 09-12-2022 Follow-up visit Diagnoses/Problems Assessed Takotsubo syndrome (429.83) (I51.81) Hyperlipidemia (272.4) (E78.5) Overweight with body mass index (BMI) of 28 to 28.9 in adult (278.02,V85.24) (E66.3,Z68.28) Never a smoker Pre-operative cardiovascular examination (V7.81) (Z01.810) Orders Hyperlipidemia Changed: From Zetia 10 MG Oral Tablet TAKE 1 TABLET AT BEDTIME To Ezetimibe 10 MG Oral Tablet (Zetia) TAKE 1 TABLET AT BEDTIME Overweight with body mass index (BMI) of 28 to 28.9 in adult Healthy Weight Tips; Status:Complete - Retrospective Authorization; Done: 12Sep2022 Some eating tips that can help you lose weight.; Status:Complete - Retrospective Authorization; Done: 12Sep2022 Pre-operative cardiovascular examination IO EKG Electrocardiogram- 12 Lead; Status:Complete; Done: 12Sep2022 SocHx: Never a smoker Tobacco Use Screening; Status:Complete; Done: 12Sep2022 Takotsubo syndrome Changed: From Aspirin EC 81 MG TBEC TAKE 1 TABLET DAILY DIRECTED To Aspirin 81 MG Oral Tablet Delayed Release TAKE 1 TABLET DAILY Patient Instructions Please bring all medicines, vitamins, and herbal supplements with you when you come to the office. Prescriptions will not be filled unless you are compliant with your follow up appointments or have a follow up appointment scheduled as per instruction of your physician. Refills should be requested at the time of your visit. Patient can proceed with surgery from a cardiac standpoint.Can hold aspirin one week prior Follow up in 9 months The provider reviewed the following test(s) and result(s) with the patient: ECG Chief Complaint CHERYL HECTOR is being seen for poc hysterectomy. History of Present Illness Patient is here for follow-up continue management for history of stress cardiomyopathy, hyperlipidemia and overweight. She reports she is feeling well. She denies any cardiac complaint. She described functional class I. She denies lightheadedness, dizziness or syncope. She requested clearance for hysterectomy. ASSESSMENT: 1. Prior presentation with stress cardiomyopathy/takotsubo syndrome, echocardiogram subsequently showed normal ejection fraction. She denies any symptoms and describe functional class I. 2. Hyperlipidemia with documented history of intolerance to statin. Seem to tolerated Zetia 3. Mildly overweight. With recent weight gain 4. Prior report of fatigue has improved preoperative risk assessment for hysterectomy. Patient is functional class I. She has normal LV systolic function and no coronary artery disease. Her operative risk is acceptable Plan 1. Patient will remain on the same medication. Patient agreed to go back to the area 2. Patient was counseled regarding risk factor modification 3. We'll see him back in the office in 1 year I will try to retrieve her recent labs from [place] 4. The patient was advised to lose weight and exercise. 5. I reviewed with patient preoperative cardiac risk for her upcoming hysterectomy. I believe her operative risk is acceptable and she can proceed she was given permission to hold aspirin for 7 days prior to surgery Surgical History Problems History of Cardiac catheterization History of Cervical surgery History of Cholecystectomy History of Complete colonoscopy History of Cystoscopy History of Urethropexy Current Meds Medication NameInstruction Aspirin EC 81 MG TBECTAKE 1 TABLET DAILY DIRECTED. Loratadine 10 MG Oral TabletTAKE 1 TABLET DAILY. Zetia 10 MG Oral TabletTAKE 1 TABLET AT BEDTIME. Patient did not bring medication list or bottles. Updated verbally with patient Allergies Medication amoxicillin Recorded By: Asmita Wilkins; 03/16/2021 10:50:34 AM hives, itching atorvastatin Recorded By: Asmita Wilkins; 03/16/2021 10:50:34 AM myalgias oxycodone Recorded By: Asmita Wilkins; 03/16/2021 10:50:34 AM Pravastatin Sodium TABS Recorded By: Asmita Wilkins; 03/16/2021 10:50:34 AM myalgias Statins Recorded By: Asmita Wilkins; 03/16/2021 10:50:34 AM myalgias Social History Problems Caffeine use (V49.89) (Z78.9) Never a smoker No illicit drug use Social alcohol use (V49.89) (Z78.9) Review of Systems Constitutional: not feeling tired. Cardiovascular: no intermittent leg claudication and as noted in HPI. Respiratory: no cough and no shortness of breath. Gastrointestinal: no change in bowel habits and no blood in stools. Integumentary: no skin rashes. Neurological: no seizures and no frequent falls. All other systems have been reviewed and are negative for complaint. Vitals Vital Signs Recorded: 12Sep2022 12:04PM Heart Rate70, Apical Ksajxadv094, LUE, Sitting Lsienkyla97, LUE, Sitting Height5 ft 4 in Kogrrl408 lb BMI Bndjcocixl66.67 kg/m2 BSA Calculated1.81 Tobacco Useb) No PHQ-2 #1. Over the last 2 weeks have you felt down, depressed or hopeless? (If yes, answer PHQ-9 below)No PHQ-2 #2. Over the last 2 weeks have you felt little interest or pleasure in doin (more content not included)... Normal [facility] Tobacco Screening.on 023 Adult depression screening assessment No [facility] [address] DO Work Phone: Fall risk assessment a) No falls within the last year [facility] [address] DO Work Phone: Tobacco use status [facility] b) [facility] DO Work Phone: Ambulatory Visit Summaryon 0 06-05-2022 Ambulatory Visit Summary CHERYL HECTOR Abeba :1965 Visit Date:06/05/2022 Ambulatory Visit Instructions Your Care Team Attending Physician - BRENDA OSTO, Cristo Arias Primary Care Physician - Sera Lambert MD This Is Your Medications List Contact prescribing physician if questions or concerns aspirin (aspirin 81 mg Oral EC Tab) ezetimibe (Zetia 10 mg Tab) polyethylene glycol 3350 (MiraLax) Procedures Performed Colonoscopy (05/29/2022), EGD - Esophagogastroduodenoscopy (05/29/2022), LEEP (09/12/2017), Cystourethroscopy with dilation of urethral stricture (12/29/2014), Cystourethroscopy with dilation of urethral stricture (02/21/2011), Cardiac catheterisation, Cholecystectomy, Suspension of bladder, Tonsillectomy, ureteral dilatation. Medications What How Much When Instructions Unchanged aspirin (aspirin 81 mg Oral EC Tab) 1 Tablets By Mouth Every day Contact prescribing physician if questions or concerns Unchanged ezetimibe (Zetia 10 mg Tab) 1 Tablets By Mouth Every day Contact prescribing physician if questions or concerns Unchanged polyethylene glycol 3350 (MiraLax) 17 Gram By Mouth Every day Contact prescribing physician if questions or concerns Allergies Percocet 5/325 (Projectile vomiting) Percodan (Projectile vomiting) amoxicillin (Hives) Latex (Redness, Itching) Macrobid (Joint pain, Rash) codeine (Edema) statins (Unknown) Problems Ongoing - Any problem that you are currently receiving treatment for. Adrenal adenoma Anxiety BMI 29.0-29.9,adult Cervical disc disease Change in bowel habits Constipation Depression Dysuria Epigastric pain Feeling of incomplete bladder emptying GERD (gastroesophageal reflux disease) H/O urethral stricture Hx of myocardial infarction Microscopic hematuria Rectocele Seasonal allergies Urine frequency Weak urinary stream Historical - Any problem that you are no longer receiving treatment for. Cholecystectomy Hypotension Kidney stone Plantar fasciitis Normal [facility] General Surgery Office/Clini c Noteon 06-05-2022 General Surgery Office/Clinic Note Chief Complaint post operative follow up HPI Staff 7 day post operative follow up post colonoscopy and EGD with antral biopsy. Epigastric pain and bowel changes have resolved. History of Present Illness s/p EGD and colonoscopy; mild antral gastritis, bx negative for H pylori, small hiatal hernia; no esophagitis; colonoscopy with sigmoid diverticulosis. Review of Systems ROS - Provider Constitutional: no fever, no sweats, no weight loss. Eyes: no glasses, no blurred vision, no visual loss. ENMT: no dentures, no hoarseness, no swallowing difficulties, no hearing loss, no ear infection(s), no nose bleeds. Cardiovascular: normal blood pressure, no chest pain, regular heartbeat, no heart murmur. Respiratory: no shortness of breath, no cough, no asthma, no wheezing. Gastrointestinal: no nausea, no vomiting, no diarrhea, no constipation, no blood in stool, no change in bowel habits, no abdominal pain, no hepatitis. Genitourinary: no kidney stones, no urine infection, no dysuria. Musculoskeletal: no pain, no weakness. Skin: no changing moles, no rash, no skin lumps. Neurologic: no seizures, no epilepsy, no headache. Psychiatric: no emotional or psychiatric problem. Heme/Lymph: no bleeding problems, no anemia, no blood clots, no transfusions. Allergy/Immunologic: no swollen lymph nodes/glands, no IV drug abuse. Other: Additional ROS info: Except as noted in the above Review of Systems and in the History of Present Illness, all other systems have been reviewed and are negative or noncontributory. Assessment/Plan 1. Hiatal hernia with GERD without esophagitis (K44.9: Diaphragmatic hernia without obstruction or gangrene) improved with over the counter Prevacid and dietary changes. 2. Sigmoid diverticulosis (K57.30: Diverticulosis of large intestine without perforation or abscess without bleeding) high fiber diet and daily fiber supplement Gastro-esophageal reflux disease without esophagitis (K21.9: Gastro-esophageal reflux disease without esophagitis) Follow-up No qualifying data available Problem List/Past Medical History Ongoing Adrenal adenoma Anxiety BMI 29.0-29.9,adult Cervical disc disease Change in bowel habits Constipation Depression Dysuria Epigastric pain Feeling of incomplete bladder emptying GERD (gastroesophageal reflux disease) H/O urethral stricture Hiatal hernia with GERD without esophagitis Hx of myocardial infarction Microscopic hematuria Rectocele Seasonal allergies Sigmoid diverticulosis Urine frequency Weak urinary stream Historical Cholecystectomy Hypotension Kidney stone Plantar fasciitis Procedure/Surgical History Colonoscopy (05/29/2022), EGD - Esophagogastroduodenoscopy (05/29/2022), LEEP (09/12/2017), Cystourethroscopy with dilation of urethral stricture (12/29/2014), Cystourethroscopy with dilation of urethral stricture (02/21/2011), Cardiac catheterisation, Cholecystectomy, Suspension of bladder, Tonsillectomy, ureteral dilatation. Medications aspirin 81 mg Oral EC Tab, 81 mg= 1 tab(s), Oral, Daily MiraLax, 17 gm, Oral, Daily Zetia 10 mg Tab, 10 mg= 1 tab(s), Oral, Daily Allergies Percocet 5/325 (Projectile vomiting) Percodan (Projectile vomiting) amoxicillin (Hives) Latex (Redness, Itching) Macrobid (Joint pain, Rash) codeine (Edema) statins (Unknown) Social History Alcohol - Medium Risk, 09/02/2017 Current, Beer, Wine, Liquor, 1-2 times per week, 05/03/2022 Substance Abuse - Denies Substance Abuse, 09/02/2017 Tobacco - Denies Tobacco Use, 09/02/2017 Never (less than 100 in lifetime) Tobacco Use:. Never Smokeless Tobacco Use:., 05/03/2022 Family History Autoimmune disease: Brother. Crohn's disease: Brother. Diabetes mellitus type 2: Mother. Heart disease: Mother and Father. Hypertension: Mother and Father. Primary malignant neoplasm of skin: Negative: Father. Stroke: Father. Immunizations Vaccine Date Status influenza virus vaccine, inactivated 01/2022 Recorded SARS-CoV-2 (COVID-19) mRNA-1273 vaccine 03/19/2021 Recorded SARS-CoV-2 (COVID-19) mRNA-1273 vaccine 05/19/2020 Recorded SARS-CoV-2 (COVID-19) mRNA-1273 vaccine 04/21/2020 Recorded Normal [facility] Comment on above: Result Comment: Electronically Signed By : BRENDA SOTO, Cristo Arias\.br\Date and Time Signed: 06/05/22 16:56 EDT Pathology Noteon 06-03-2022 Pathology Note [id number]#1.00CD:127 [facility] Outside Colonoscopyon 2022 Outside Colonoscopy [id number]#1.00CD:127 [facility] Reminderson 05-30-2022 Reminders - From: Nedra Juares LPN To: GSN - Clinical; Sent: 05/30/2022 09:37:12 EST Show up: 05/01/2032 07:00:00 EST Subject: colonoscopy recall Due Date/Time: 05/29/2032 07:00:00 EST Reminder/Recall Patient is due for screening colonoscopy 05/29/2032. [facility] Facesheeton 05-07-2022 Facesheet [id number]#1.00CD:127 [facility] Consent for Procedure/Surger yon 05-06-2022 Consent for Procedure/Surger y [id number]#1.00CD:127 [facility] Ambulatory Visit Summaryon 0 05-03-2022 Ambulatory Visit Summary CHERYL HECTOR Abeba :1965 Visit Date:05/03/2022 Ambulatory Visit Instructions Your Care Team Attending Physician - BRENDA SOTO, Cristo Arias Primary Care Physician - Sera Lambert MD This Is Your Medications List polyethylene glycol 3350 (MiraLax) Contact prescribing physician if questions or concerns aspirin (aspirin 81 mg Oral EC Tab) ezetimibe (Zetia 10 mg Tab) Procedures Performed LEEP (09/12/2017), Cystourethroscopy with dilation of urethral stricture (12/29/2014), Cystourethroscopy with dilation of urethral stricture (02/21/2011), Cardiac catheterisation, Cholecystectomy, Suspension of bladder, Tonsillectomy, ureteral dilatation. Discharge Vitals Heart Rate (Peripheral) 70 Respiratory Rate 16 Blood Pressure 134/96 Height 162.5 cm Height 64 in Weight 78.2 kg Weight 172.04 lb BMI 29.61 Medications What How Much When Instructions Unchanged polyethylene glycol 3350 (MiraLax) 17 Gram By Mouth Every day Unchanged aspirin (aspirin 81 mg Oral EC Tab) 1 Tablets By Mouth Every day Contact prescribing physician if questions or concerns Unchanged ezetimibe (Zetia 10 mg Tab) 1 Tablets By Mouth Every day Contact prescribing physician if questions or concerns Allergies Percocet 5/325 (Projectile vomiting) Percodan (Projectile vomiting) amoxicillin (Hives) Latex (Redness, Itching) Macrobid (Joint pain, Rash) codeine (Edema) statins (Unknown) Problems Ongoing - Any problem that you are currently receiving treatment for. Adrenal adenoma Anxiety BMI 29.0-29.9,adult Cervical disc disease Constipation Depression Dysuria Feeling of incomplete bladder emptying H/O urethral stricture Hx of myocardial infarction Microscopic hematuria Rectocele Seasonal allergies Urine frequency Weak urinary stream Historical - Any problem that you are no longer receiving treatment for. Cholecystectomy Hypotension Kidney stone Plantar fasciitis Normal [facility] Physician Referralon 023 Physician Referral [id number] Normal [facility] MM screening mammo BI w/CADo n 01-24-2022 MM screening mammo BI w/CAD [facility] [place] [address] [place], [place] [id number] Mammography Report Signed Patient: Cheryl Hector MR#: [id number] : 1965 Acct:[id number] Age/Sex: 56 / F ADM Date: 01/24/22 Loc: [place] Room: Type: [facility] Attending Dr: Jose Dangelo MD Copies to: MD Jose Mojica MD Ordering Provider: Jose Dangelo MD Date of Service: 01/24/22 MM/MM screening mammo BI w/CAD: SCREENING CLINICAL DATA: Screening for malignancy. BILATERAL SCREENING MAMMOGRAMS - FULL FIELD DIGITAL WITH TOMOSYNTHESIS AND CAD Tomosynthesis craniocaudal and mediolateral oblique views of both breasts were obtained using low- dose digital technique. Comparison is made to prior studies from 01/15/2021, 12/24/2019, 10/19/2018, and 04/15/2017. This examination was reviewed with the aid of CAD. The breast parenchyma is heterogeneously dense. Benign-appearing lymph nodes are noted bilaterally. There are a few punctate benign-appearing calcifications similar to the prior exam. There are no dominant masses, typically malignant calcifications or architectural distortion. There has been no significant interval change. MM/MM screening mammo BI w/CAD IMPRESSION: NO MAMMOGRAPHIC EVIDENCE OF MALIGNANCY. ROUTINE FOLLOW-UP IS RECOMMENDED IN ONE YEAR. RESULT CODE: 2 Benign Findings(s) DENSITY CODE: 3 (approximately 51-75% glandular) FOLLOW UP: 1YR The false-negative rate of mammography is approximately 10-percent. Management of a palpable abnormality must be based on clinical grounds. Patient was entered into a reminder system with a target due date for the next mammogram. Impression dictated by: Kunal Osorio M.D.01/24/2022 4:44 PM Dictation Location: [facility] Transcribed By: [place] 01/24/22 1324 Dictated By: Kunal Osorio II, MD 01/24/22 1640 Signed By: 01/24/22 [id number] [facility] Tobacco Screening.on 022 Adult depression screening assessment No -[facility] [employer] [address] DO Work Phone: Tobacco use status [facility] b) No MP-[facility] [address] DO Work Phone: CNOVon 09-10-2019 CNOV Office Visit (UROLMN ) CHERYL HECTOR ([id number]) 1965 F Date Time Provider Department 09/10/19 9:00 AM WILMER LOVELACE During your visit today, we recorded the following information about you: Wilmer Lovelace MD 11/05/2019 11:22 AM Addendum [facility]IC[facility] AND RECONSTRUCTIVE SURGERY PATIENT HISTORY AND PHYSICAL EXAM PATIENT INFO: Cheryl Hector is a 54 year old female. 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[place] Recurrent microscopic hematuria Cystoscopy and renal US -- performed in 2017- reported normal Bladder prolapse PSHx: Prior mesh sling 2005, has recurrent JASS JASS: Yes URGENCY: Yes UI: Yes (if holds urine too long) PADS: No FREQUENCY:6 per day NOCTURIA: 0 -3 per night STRAINING TO VOID: No EMPTIES COMPLETELY: Yes UTI: 2-3 past 12 months SEXUALLY ACTIVE: yes DYSPAREUNIA: Yes PREGNANCIES: 2, Para 2, Vaginal births 2 Post-menopause: yes Have you had a hysterectomy:No Postmenopausal bleeding:No Sense of vaginal bulge:YES HEMATURIA HX: Yes STONES: Yes GI: No Problem Do you have any new weakness,balance or coordination problems:NO Do you have a history of any diagnosed back or Neurological problems:NO HISTORIES: No past medical history on file. No past surgical history on file. No family history on file. Social History Tobacco Use - Smoking status: Not on file Substance Use Topics - Alcohol use: Not on file - Drug use: Not on file The patient's family history is not related to the condition for which the patient is being seen MEDICATIONS: Current Outpatient Medications Medication Sig - Estradiol (VAGIFEM) 10 mcg vaginal tablet Use 1 tablet vaginally. - conjugated estrogens (PREMARIN) vaginal cream Use 0.5 g vaginally once daily. No current facility-administered medications for this visit. ALLERGIES: Amoxicillin; Codeine; Oxycodone-Aspirin GENERAL REVIEW OF SYSTEMS: GENERAL: negative for malaise, significant weight loss and fever HEAD AND NECK: No blurred vision or Sjogren's syndrome SKIN: Negative for lesions, rash, and itching. RESPIRATORY: Negative for cough and shortness of breath CARDIOVASCULAR: Negative for chest pain or MS GI: SEE HPI GENITOURINARY: SEE HPI ENDOCRINE:No thyroid problems or diabetes mellitus NEURO: Negative for numbness, tingling, tremors MUSCULOSKELETAL: Negative for joint pain or swelling, back pain or muscle pain BLOOD/LYMPHATIC: No easy bleeding, easy bruising, transfusion Hx PSYCH: no history of psychiatric problems, no history of depression Signed: Neri Sy MD === PHYSICAL EXAM: === VITAL SIGNS: There were no vitals taken for this visit. GENERAL: Well appearing, alert, in no acute distress, well-hydrated, well nourished. HEAD AND NECK: No masses, adenopathy, icterus. Thyroid nonpalpable RESP: NL effort, no retractions or purse-lip breathing. CV: No extremity swelling, varices, edema, pallor, or erythema ABDOMEN: Soft, nontender, nondistended, no masses. HERNIAS: None SKIN/LYMPH: No rash, lesions NEURO/PSYCH: No signs of depression, anxiety, or agitation EXTREMITIES: Extremities normal. No deformities, edema, clubbing or skin discoloration. GENITOURINARY: External genitalia: nl. Hair distribution, no lesions Bladder non-palpable without masses/tenderness. Vaginal appearance normal without discharge. Estrogen normal limit No tenderness to palpation Anus and perineum grossly nl. Cystocele:Stage II Rectocele:Stage I Stress Incontinence: no POP-Q: Ba 0 Bp -2 C - 3 CYSTOMETRICS: no PVR: 0 mL via bladder US UA: Positive for: Blood moderate IMPRESSION AND PLAN: -Pelvic Organ Prolapse-We reviewed the following education and treatment options for patients with pelvic organ prolapse including ? Observation, asymptomatic -Hematuria-We reviewed the standard algorithm for work up of hematuria in the absence of inciting factors, including - Previous work-up including cysto and ANA performed by [facility] urologist in [id number] - Will send off UA with microscopy today -Recurrent UTI-We reviewed the following education and treatment options for patients with recurrent urinary tract infections (UTIs) ? Vaginal estrogen cream for atrophic vaginitis: with fingertip application every other night ? Probiotics: take any brand once daily - please follow directions on label ? A good bowel regimen to promote a BM each day or by every 3rd day ? For breakthrough infections over the next 6 months, use a 3-day course of self start antibiotics in which you take 1 pill 2 times a day for 3 days; if symptoms continue, contact your PCP or seek care at Urgent[facility]Express Care. ? We also recommend D-mannose as an OTC natural supplement for the prevention of recurrent UTIs. Some studies have shown this naturally occurring sugar works in the prevention of recurrent UTIs with little to no side effects. Recurrent nephrolithiasis - Patient wishes to establish care with stone provider- names of endourologists provided Neri Sy MD Electronically signed === STAFF NOTE: I have personally modified the HPI AND ROS, performed a PE AND a face to face diagnostic evaluation on this patient AND discussed the above plan. Wilmer Lovelace MD [facility] Electronically signed Ashley Colby MA, MA 09/10/2019 8:52 AM Signed PVR 0ml Neri Sy MD, MD 09/10/2019 9:31 AM Signed [facility] [place] Recurrent UTI Step Prevention Program: Takes 6 months before it is fully in effect! This is not a treatment program for each time you may get a breakthrough infection in the future or while you are waiting for the prevention program to take effect over the next 6 months. Your primary care team will treat any breakthrough infections or provide refills for any of my suggestions below. The following is the recommended treatment to PREVENT recurrent urinary tract infections. 1) Topical estrogen cream for atrophic vaginitis: estrace cream fingertip application every other night 2) Probiotics: take any brand once daily: Try the brand Align but change brands every 6 months 3) A good bowel regimen to promote a BM each day or by every 3rd day 4) You may use AZO as directed as an OTC bladder pain relief when you have a breakthrough UTI; I think aspirin or Motrin/Aleve OTC is useful as well during an active infection Patient Information: Topical estrogen cream is recommended to restore the vaginal epithelium to its pre menopausal state. With a decrease in estrogen after menopause, the vaginal environment changes. This can lead to increased itchiness, dryness, and irritation. The environment becomes more basic/alkaline to a pH of 6.0 to 7.5. Normally the pH level is around 3.5 to 4.5. A different bacterial trae then begins to colonize the vagina which can lead to increased urinary tract infections. In order to re-establish the good bacteria trae, it is important to get the vaginal epithelium back to its pre menopausal state. This can be done with topical estrogen cream. A pea sized amount on the tip of the finger used every other night can do this. It takes about six months for the environment to become hospitable to good bacteria. During this time your doctor may or may not also prescribe a low dose daily antibiotic to decrease your chance of infections. Side effects of topical estrogen use include breast tenderness, vaginal bleeding or spotting, nonphysiologic discharge, vaginal irritation, burning and itching. If you have a history of deep vein thrombosis, pulmonary embolism, uterine cancer or estrogen receptor positive breast cancer, you may want to discuss this with your doctor prior to starting topical estrogen use. Histology slides of vaginal epithelium without estrogen then with estrogen supplementation. Epi stands for epithelium. Progress and Prospects in Treating Postmenopausal Vaginal atrophy. Clinical pharmacology AND Therapeutics, Vol 89 Number 1, March 2010 Probiotics also helps in re-establishing the good bacteria in the vaginal trae. Numerous probiotics are available over the counter to use. This can also help with establishing a good bowel regimen. Given the bowels close proximity to both the vagina and urethra/bladder, it is important to have regular bowel movements to decrease voiding symptoms and also decrease the risk of urinary tract infections. A good bowel regimen help with decreasing colonic trae in the perineal area. This can be done with stool softeners available over the counter to gentle laxatives such as miralax. We would suggest avoiding rodent exterminator use of laxatives though and if you would like a consult with gastroenterology for additional evaluation please ask. Along with these three strategies to prevent recurrent infections, your doctor may add additional strategies tailored to your situation. We are commonly asked whether taking cranberry extract will prevent urinary tract infections. Ashley Colby MA, MA 09/10/2019 9:59 AM Signed Addended by: ASHLEY COLBY MA on: 09/10/2019 09:59 AM Modules accepted: Orders Ashley Colby MA, MA 10/29/2019 11:23 AM Signed Addended by: ASHLEY COLBY MA on: 10/29/2019 11:23 AM Modules accepted: Orders Referring Provider: SELF [[id number]] Allergies As of Date: 09/10/2019 Noted Allergy Reaction AMOXICILLIN 09/24/2011 16 - Unknown CODEINE 09/24/2011 16 - Unknown OXYCODONE-ASPIRIN 09/24/2011 16 - Unknown Date Reviewed: 09/10/2019 Reviewed by: Neri Chao (Yuan Sy MD - Fully Assessed Primary Visit Diagnosis:Microscopic hematuria [R31.29] Other Visit Diagnoses:Cystocele, midline [N81.11] Recurrent UTI [N39.0] Order(s):UA DIP, URINE (POC) [[id number]] Order #: [id number]. #:[id number] URINALYSIS WITH MICROSCOPIC [SQUAWMIC] Order #: [id number] FUTURE conjugated estrogens (PREMARIN) vaginal creamUse 0.5 g vaginally once daily.Disp: 42.5 gRfl: 3 URINALYSIS WITH MICROSCOPIC [SQUAWMIC] Order #: [id number]. #:[id number] Prescriptions as of 09/10/2019 Sig: ESTRADIOL 10 MCG VAGINAL TABL* Use 1 tablet vaginally. PREMARIN 0.625 MG/GRAM VAGINA* Use 0.5 g vaginally once joaquina* Problem List As Of Date: 09/10/2019 (None) Other instructions from your clinician: [facility] [place] Recurrent UTI Step Prevention Program: Takes 6 months before it is fully in effect! This is not a treatment program for each time you may get a breakthrough infection in the future or while you are waiting for the prevention program to take effect over the next 6 months. Your primary care team will treat any breakthrough infections or provide refills for any of my suggestions below. The following is the recommended treatment to PREVENT recurrent urinary tract infections. 1) Topical estrogen cream for atrophic vaginitis: estrace cream fingertip application every other night 2) Probiotics: take any brand once daily: Try the brand Align but change brands every 6 months 3) A good bowel regimen to promote a BM each day or by every 3rd day 4) You may use AZO as directed as an OTC bladder pain relief when you have a breakthrough UTI; I think aspirin or Motrin/Aleve OTC is useful as well during an active infection Patient Information: Topical estrogen cream is recommended to restore the vaginal epithelium to its pre menopausal state. With a decrease in estrogen after menopause, the vaginal environment changes. This can lead to increased itchiness, dryness, and irritation. The environment becomes more basic/alkaline to a pH of 6.0 to 7.5. Normally the pH level is around 3.5 to 4.5. A different bacterial trae then begins to colonize the vagina which can lead to increased urinary tract infections. In order to re-establish the good bacteria trae, it is important to get the vaginal epithelium back to its pre menopausal state. This can be done with topical estrogen cream. A pea sized amount on the tip of the finger used every other night can do this. It takes about six months for the environment to become hospitable to good bacteria. During this time your doctor may or may not also prescribe a low dose daily antibiotic to decrease your chance of infections. Side effects of topical estrogen use include breast tenderness, vaginal bleeding or spotting, nonphysiologic discharge, vaginal irritation, burning and itching. If you have a history of deep vein thrombosis, pulmonary embolism, uterine cancer or estrogen receptor positive breast cancer, you may want to discuss this with your doctor prior to starting topical estrogen use. Histology slides of vaginal epithelium without estrogen then with estrogen supplementation. Epi stands for epithelium. Progress and Prospects in Treating Postmenopausal Vaginal atrophy. Clinical pharmacology AND Therapeutics, Vol 89 Number 1, March 2010 Probiotics also helps in re-establishing the good bacteria in the vaginal trae. Numerous probiotics are available over the counter to use. This can also help with establishing a good bowel regimen. Given the bowels close proximity to both the vagina and urethra/bladder, it is important to have regular bowel movements to decrease voiding symptoms and also decrease the risk of urinary tract infections. A good bowel regimen help with decreasing colonic trae in the perineal area. This can be done with stool softeners available over the counter to gentle laxatives such as miralax. We would suggest avoiding intermediate use of laxatives though and if you would like a consult with gastroenterology for additional evaluation please ask. Along with these three strategies to prevent recurrent infections, your doctor may add additional strategies tailored to your situation. We are commonly asked whether taking cranberry extract will prevent urinary tract infections. Visit Notes: >> Ashley Forrest) IAN Colby Fri Sep 10, 2019 8:52 AM Status: Signed PVR 0ml Prescriptions ordered this encounter Disp Refills Start End PREMARIN 0.625 MG/GRAM VAGINAL CREAM 42.5* 3 09/10/2019 Route: VAGINAL Sig: Use 0.5 g vaginally once daily. Medications Discontinued During This Encounter Prescriptions - buPROPion XL (WELLBUTRIN XL) 150 mg 24 hr tablet (Discontinued) Take 150 mg by mouth. Encounter Status:Closed by WILMER LOVELACE MD on 09/10/19 Normal [facility] PROGRESSon 09-10-2019 PROGRESS HNO ID: [id number] Author: Wilmer Lovelace Service: ? Author Type: Physician Type: Progress Notes Filed: 11/05/2019 11:22 AM Note Text: [facility] FOR FEMALE PELVIC MEDICINE AND RECONSTRUCTIVE SURGERY PATIENT HISTORY AND PHYSICAL EXAM PATIENT INFO: Cheryl Hector is a 54 year old female. 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 Recurrent microscopic hematuria Cystoscopy and renal US -- performed in 2018- reported normal Bladder prolapse PSHx: Prior mesh sling 2005, has recurrent JASS JASS: Yes URGENCY: Yes UI: Yes (if holds urine too long) PADS: No FREQUENCY:6 per day NOCTURIA: 0 -3 per night STRAINING TO VOID: No EMPTIES COMPLETELY: Yes UTI: 2-3 past 12 months SEXUALLY ACTIVE: yes DYSPAREUNIA: Yes PREGNANCIES: 2, Para 2, Vaginal births 2 Post-menopause: yes Have you had a hysterectomy:No Postmenopausal bleeding:No Sense of vaginal bulge:YES HEMATURIA HX: Yes STONES: Yes GI: No Problem Do you have any new weakness,balance or coordination problems:NO Do you have a history of any diagnosed back or Neurological problems:NO HISTORIES: No past medical history on file. No past surgical history on file. No family history on file. Social History Tobacco Use - Smoking status: Not on file Substance Use Topics - Alcohol use: Not on file - Drug use: Not on file The patient's family history is not related to the condition for which the patient is being seen MEDICATIONS: Current Outpatient Medications Medication Sig - Estradiol (VAGIFEM) 10 mcg vaginal tablet Use 1 tablet vaginally. - conjugated estrogens (PREMARIN) vaginal cream Use 0.5 g vaginally once daily. No current facility-administered medications for this visit. ALLERGIES: Amoxicillin; Codeine; Oxycodone-Aspirin GENERAL REVIEW OF SYSTEMS: GENERAL: negative for malaise, significant weight loss and fever HEAD AND NECK: No blurred vision or Sjogren's syndrome SKIN: Negative for lesions, rash, and itching. RESPIRATORY: Negative for cough and shortness of breath CARDIOVASCULAR: Negative for chest pain or MS GI: SEE HPI GENITOURINARY: SEE HPI ENDOCRINE:No thyroid problems or diabetes mellitus NEURO: Negative for numbness, tingling, tremors MUSCULOSKELETAL: Negative for joint pain or swelling, back pain or muscle pain BLOOD/LYMPHATIC: No easy bleeding, easy bruising, transfusion Hx PSYCH: no history of psychiatric problems, no history of depression Signed: Neri Sy MD === PHYSICAL EXAM: === VITAL SIGNS: There were no vitals taken for this visit. GENERAL: Well appearing, alert, in no acute distress, well-hydrated, well nourished. HEAD AND NECK: No masses, adenopathy, icterus. Thyroid nonpalpable RESP: NL effort, no retractions or purse-lip breathing. CV: No extremity swelling, varices, edema, pallor, or erythema ABDOMEN: Soft, nontender, nondistended, no masses. HERNIAS: None SKIN/LYMPH: No rash, lesions NEURO/PSYCH: No signs of depression, anxiety, or agitation EXTREMITIES: Extremities normal. No deformities, edema, clubbing or skin discoloration. GENITOURINARY: External genitalia: nl. Hair distribution, no lesions Bladder non-palpable without masses/tenderness. Vaginal appearance normal without discharge. Estrogen normal limit No tenderness to palpation Anus and perineum grossly nl. Cystocele:Stage II Rectocele:Stage I Stress Incontinence: no POP-Q: Ba 0 Bp -2 C - 3 CYSTOMETRICS: no PVR: 0 mL via bladder US UA: Positive for: Blood moderate IMPRESSION AND PLAN: -Pelvic Organ Prolapse-We reviewed the following education and treatment options for patients with pelvic organ prolapse including ? Observation, asymptomatic -Hematuria-We reviewed the standard algorithm for work up of hematuria in the absence of inciting factors, including - Previous work-up including cysto and ANA performed by [facility] urologist in [id number] - Will send off UA with microscopy today -Recurrent UTI-We reviewed the following education and treatment options for patients with recurrent urinary tract infections (UTIs) ? Vaginal estrogen cream for atrophic vaginitis: with fingertip application every other night ? Probiotics: take any brand once daily - please follow directions on label ? A good bowel regimen to promote a BM each day or by every 3rd day ? For breakthrough infections over the next 6 months, use a 3-day course of self start antibiotics in which you take 1 pill 2 times a day for 3 days; if symptoms continue, contact your PCP or seek care at Urgent[facility]Express Care. ? We also recommend D-mannose as an OTC natural supplement for the prevention of recurrent UTIs. Some studies have shown this naturally occurring sugar works in the prevention of recurrent UTIs with little to no side effects. Recurrent nephrolithiasis - Patient wishes to establish care with stone provider- names of endourologists provided Neri Sy MD Electronically signed === STAFF NOTE: I have personally modified the HPI AND ROS, performed a PE AND a face to face diagnostic evaluation on this patient AND discussed the above plan. Wilmer Lovelace MD [facility] Electronically signed Normal [facility] Urinalysis with Microscopico n 09-10-2019 Bilirubin, Urine Negative [facility] Comment on above: Performed By: #### UAWMIC #### [place] [phone] Clarity (U) Clear Normal Clear [facility] Comment on above: Performed By: #### UAWMIC #### [place] [id number] Color (U) Colorless Critically abnormal Yellow [facility] Comment on above: Performed By: #### UAWMIC #### [place] [phone] Comments SEE COMMENT Normal [facility] Comment on above: Result Comment: N/A Performed By: #### U AWMIC #### [place] [id number] [place] [phone] Glucose Ql (U) Negative Normal Negative [facility] Comment on above: Performed By: #### UAWMIC #### [place] [phone] Hemoglobin/Blood ,Ur 1+ Critically abnormal Negative [facility] Comment on above: Performed By: #### UAWMIC #### [place] [phone] Ketones Ql (U) Negative Normal Negative [facility] Comment on above: Performed By: #### UAWMIC #### [facility] [address] [place] [address] Leukest Negative Normal Negative [facility] Comment on above: Performed By: #### UAWMIC #### [place] [address] [place], [place] [address] Nitrite Ql (U) Negative Normal Negative [facility] Comment on above: Performed By: #### UAWMIC #### [place] [address] [place] [address] pH (Bld) 6.0 Normal 5.0-8.0 [facility] Comment on above: Performed By: #### UAWMIC #### [place] [address] Protein (U) [Mass/Vol] Negative Normal Negative [facility] Comment on above: Performed By: #### UAWMIC #### [place] [address] RBC (U) [#/Vol] 0-3 Normal 0-3 [facility] Comment on above: Performed By: #### UAWMIC #### [place] [id number] Specific [place], Ur 1.006 Normal 1.005-1.030 [facility] Comment on above: Performed By: #### UAWMIC #### [place] [address] [place] [phone] Urine Noman Comment SEE COMMENT Normal [facility] Comment on above: Result Comment: N/A Performed By: #### U AWMIC #### [place] [address] [place], [place] [address] Urobilinogen Qn (U) Negative Normal Negative [facility] Comment on above: Performed By: #### UAWMIC #### [facility] [address] [place], [place] [address] WBC (Bld) [#/Vol] 0-5 Normal 0-5 [facility] Comment on above: Performed By: #### UAWMIC #### [facility] [address] [place], [place] [address] Vital Signs Date Time Vital Sign Value Performing Clinician Facility 09-12-2022 12:04-0400 Body height 162.56 cm Janna E Mast Work Phone: [facility] [employer] 600 DO Work Phone: 09-12-2022 12:04-0400 Body mass index (BMI) [Ratio] 28.67 kg/m2 Janna E Mast Work Phone: [facility] [employer] 600 DO Work Phone: 09-12-2022 12:04-0400 Body surface area Derived from formula 1.81 m2 Janna E Mast Work Phone: [facility] [employer] 600 DO Work Phone: 09-12-2022 12:04-0400 Body weight 75.75 kg Janna E Mast Work Phone: [facility] [employer] 600 DO Work Phone: 09-12-2022 12:04-0400 Diastolic blood pressure 70 mm[Hg] Janna E Mast Work Phone: [facility] [employer] 600 DO Work Phone: 09-12-2022 12:04-0400 Heart rate 70 /min Janna E Mast Work Phone: [facility] [employer] 600 DO Work Phone: 09-12-2022 12:04-0400 Systolic blood pressure 104 mm[Hg] Janna E Mast Work Phone: [facility] [employer] 600 DO Work Phone: 05-03-2022 15:33-0500 Blood Pressure Location Cristo CROCKER [facility] [place] 05-03-2022 15:33-0500 Diastolic blood pressure 96 mm[Hg] Cristo NILL [facility] [place] 05-03-2022 15:33-0500 Heart rate 70 /min Cristo NILL [facility] [place] 05-03-2022 15:33-0500 Respiratory rate 16 /min Cristo ELLISONL [facility] [place] 05-03-2022 15:33-0500 Systolic blood pressure 134 mm[Hg] Cristo NILL [facility] [place] 05-22-2021 16:14-0500 Diastolic blood pressure 85 mm[Hg] Janna E Mast Work Phone: [facility] 250 DO Work Phone: 05-22-2021 16:14-0500 Systolic blood pressure 122 mm[Hg] Janna E Mast Work Phone: [facility] [employer] 250 DO Work Phone: 05-22-2021 15:57-0500 Body height 162.56 cm Janna E Mast Work Phone: [facility] 250 DO Work Phone: 05-22-2021 15:57-0500 Body mass index (BMI) [Ratio] 28.32 kg/m2 Janna E Mast Work Phone: [facility] 250 DO Work Phone: 05-22-2021 15:57-0500 Body surface area Derived from formula 1.8 m2 Janna E Mast Work Phone: [facility] 250 DO Work Phone: 05-22-2021 15:57-0500 Body weight 74.84 kg Janna E Mast Work Phone: [facility] 250 DO Work Phone: 05-22-2021 15:57-0500 Diastolic blood pressure 100 mm[Hg] Janna E Mast Work Phone: [facility] 250 DO Work Phone: 05-22-2021 15:57-0500 Heart rate 80 /min Janna E Mast Work Phone: [facility] 250 DO Work Phone: 05-22-2021 15:57-0500 Systolic blood pressure 140 mm[Hg] Janna E Mast Work Phone: [facility] 250 DO Work Phone: 05-16-2021 10:56-0500 102.2 1 Janna E Mast Work Phone: [facility] 250 DO Work Phone: Comment on above: FSLDL Encounters Encounter Date Encounter Type Care Provider Facility Start: 10-25-2022 End: 10-25-2022 Emergency department patient visit [id number] Start: 10-21-2022 End: 10-21-2022 ambulatory PETE ROD [facility] Start: 10-14-2022 End: 10-15-2022 ambulatory SERA LAMBERT [facility] Start: 09-12-[address] Vamsi Serrano Facility: Start: 09-12-2022 Patient encounter procedure Janna E Mast Work Phone: [facility] 600 DO Work Phone: Start: 06-05-2022 End: 06-06-2022 ambulatory Cristo CROCKER Facility: [facility] Start: 06-05-2022 End: 06-05-2022 Patient encounter procedure Cristo CROCKER [facility] Start: 06-03-2022 Telephone encounter Jannaranda Chaves t Work Phone: [facility] 600 DO Work Phone: Start: 05-29-2022 End: 05-30-[address] CRISTO CROCKER . Facility: Start: 05-03-2022 End: 05-04-2022 ambulatory Sera Lambert Facility:[facility] Start: 05-03-2022 End: 05-03-2022 Patient encounter procedure Cristo CROCKER [facility] [place] Start: 04-25-2022 ambulatory Cristo CROCKER Facility :[facility] Start: 01-24-2022 End: 01-24-2022 ambulatory Sera Lambert Facility:[facility] Start: 05-22-2021 Office outpatient vi sit 15 minutes Janna E Mast Work Phone: [facility] 250 DO Work Phone: Start: 07-02-2017 Ambulatory VAMSI SERRANO Faci lity:[id number] Patient encounter status Janna E Mast Work Phone: [facility] 600 DO Work Phone: Procedures Date Procedure Procedure Detail Performing Clinician Start: 05-29-2022 Colonoscopy Cristo CROCKER Start: 05-29-2022 Esophagogastroduodenoscopy Cristo CROCKER Start: 09-12-2017 Loop electrosurgical excision procedure Cristo CROCKER Comment on above: Leep cone excision and endocervical cure ttage Start: 12-29-2014 Cystourethroscopy with dilation of urethral stricture Cristo CROCKER Comment on above: also 10/05/2013 Start: 02-21-2011 Cystourethroscopy with dilation of urethral stricture Cristo NILL Cardiac catheterisation Иван ael NILL Cardiac catheterization Janna E Mast Work Phone: Cholecystectomy Janna E Mast Work Phone: Cholecystectomy Cristo NILL Cystopexy Cristo NILL Cystoscopy Janna E Mast Work Phone: History of cholecystectomy Cholecystectom y Cristo NILL Operative procedure on uterus AND/OR cervix Janna E Mast Work Phone: Tonsillectomy Cristo NILL Total colonoscopy Janna E Mas t Work Phone: ureteral dilatation 3 Michae l NILL Comment on above: due to kidney stones Urethropexy Janna E Mast Work Phone: Plan of Treatment Date Care Activity Detail Author Start: 09-16-2023 FUV, Provider: Vamsi Serrano, Status: Pen, Time: 10:10 AM FUV, Provider: Vamsi Serrano, Status: Pen, Time: 10:10 AM [facility] 600 DO Work Phone: Start: 10-08-2022 FUV, Provider: Vamsi Serrano, Status: Pen, Time: 2:00 PM FUV, Provider: Vamsi Serrano, Status: Pen, Time: 2:00 PM [facility] 600 DO Work Phone: Start: 06-04-2022 FUV, Provider: Vamsi Serrano, Status: Pen, Time: 3:50 PM FUV, Provider: Vamsi Serrano, Status: Pen, Time: 3:50 PM [facility] 250 DO Work Phone: Immunizations Immunization Date Immunization Notes Care Provider Fa pilar 01-23-2022 influenza, seasonal, injectable Janna E Mast Work Phone: [facility] 600 DO Work Phone: 01-22-2022 influenza virus vacc ine, unspecified formulation Cristo NILL [facility] [place] 03-19-2021 Moderna COVID-19 Vac cine 100 MCG/0.5ML Intramuscular Suspension Janna E Mast Work Phone: [facility] [place] 05-19-2020 Moderna COVID-19 Vac cine 100 MCG/0.5ML Intramuscular Suspension Janna E Mast Work Phone: [facility] [place] 04-21-2020 Moderna COVID-19 Vac cine 100 MCG/0.5ML Intramuscular Suspension Janna E Mast Work Phone: General [facility] 01-18-2020 influenza virus vacc ine, unspecified formulation Janna E Mast Work Phone: [facility] 250 DO Work Phone: 12-23-2019 influenza virus vacc ine, unspecified formulation Janna E Mast Work Phone: [facility] 250 DO Work Phone: 01-06-2018 influenza virus vacc ine, unspecified formulation Janna E Mast Work Phone: [facility] 250 DO Work Phone: 12-22-2016 influenza virus vacc ine, unspecified formulation Janna E Mast Work Phone: [facility] 250 DO Work Phone: 01-21-2002 hepatitis B vaccine, adult dosage Janna E Mast Work Phone: [facility] 250 DO Work Phone: Payers Date Payer Category Payer Self-pay 1965 Unknown [id number] 1965 Unknown [id number] 1965 Unknown [id number] 1963 Unknown [id number] 1963 Unknown [id number] 1963 Unknown [id number] 1963 Unknown [id number] 1963 Unknown [id number] 1965 Unknown [id number] 1959 Unknown [id number] Unknown [facility] Unknown [id number] Social History Date Type Detail Facility Social alcohol use Social alcohol use [place] [address] DO Work Phone: Start: 05-03-2022 Tobacco smoking status Never s moked tobacco (finding) [facility] [place] Tobacco smoking status Never [facility] Sex Assigned At Female [facility] Functional Status Date Assessment Result Facility 05-03-2022 Functional Status N/A General [facility] Clinical Note 05-29-2022 Note Date & Type Note Facility 05-29-2022 Note OPERATIVE NOTE OPERATION DATE: 05/29/2022 PREOPERATIVE DIAGNOSIS: Epigastric abdominal pain, gastroesophageal reflux disease, change in bowel habits. POSTOPERATIVE DIAGNOSIS: Hiatal hernia, antral gastritis, sigmoid diverticulosis. PROCEDURE: EGD with antral biopsy and colonoscopy to cecum. SURGEON: Cristo Crocker M.D. ANESTHESIA: Monitored anesthesia care. ESTIMATED BLOOD LOSS: Less than 1 mL INDICATIONS AND CONSENT: Patient is a 56-year-old female history of worsening gastroesophageal reflux disease and intermittent epigastric abdominal pain and bloating. She also had change in bowel habits with constipation. Indications, risks, benefits, alternatives of proceeding with EGD and colonoscopy were explained extensively to the patient, including the risks of bleeding, aspiration, esophageal/gastric/duodenal or colonic perforation or anesthetic complications. All of her questions were answered. Informed consent was obtained. PROCEDURE: Patient brought to the operating room, placed in the left lateral decubitus position. Monitored anesthesia care was provided. A bite block was placed in the patient's mouth. Scope was inserted into the oropharynx. Under direct visualization, it was advanced into the esophagus, past the cricopharyngeus, down to the stomach. The stomach was insufflated with air. The pylorus was traversed down to the descending portion of the duodenum. There was no evidence of duodenitis or ulceration. There was no scarring within the pyloric channel. The scope was pulled back into the stomach and retroflexed. There was noted to be a hiatal hernia, approximately a 5 cm, sliding type. The GE junction was noted at 35 cm. There was some mild antral gastritis without ulceration or bleeding. Biopsy was obtained x2 with cold biopsy forceps with good hemostasis. Distal esophagus revealed no evidence of esophagitis or Santana's changes. Remainder of the esophagus was unremarkable. The scope was then withdrawn. Patient tolerated procedure well. The patient was then positioned for colonoscopy. Rectal exam was performed which revealed no masses or blood. Scope was inserted into the anal canal. Under direct visualization was advanced to the cecum where cecal markings were clearly identified. There was noted to be a good prep. Upon withdrawal of the scope, mucosal surfaces were carefully examined. There were no mass lesions or polyps. No inflammatory changes or ulcerations. There was moderate sigmoid diverticulosis without inflammatory changes or scarring. The scope was retroflexed in the anal canal. There was no significant hemorrhoidal disease. Scope was then withdrawn. Patient tolerated procedure well, was sent to recovery room in good condition. CC: Patient's family physician [facility] Clinical Note 05-03-2022 Note Date & Type Note Facility 05-03-2022 Note Chief Complaint consultation for abdominal pain and change in bowel habits HPI Staff 56 year old female presents on consultation from Dr. Lambert for abdominal pain and change in bowel habits. Reports greater than one year history of intermittent epigastric pain. Reports pain can last for a few hours to several days. States pain is crampy in nature. Denies nausea, vomiting, heartburn or indigestion. Reports one year history of constipation for which she take daily Miralax. Reports Mirilax is effective in relieving constipation but changes the consistency of stool for which she is concerned about. Denies rectal pain or bleeding. Denies unexplained weight loss. Never had colonoscopy in the past. No known family history of colon cancer. Half-brother with Crohn's disease. History of Present Illness 56 yo female referred for 1 year h/o change in bowel habits and epigastric discomfort; patient reports bloating/ache in subxiphoid area, intermittent, sometimes worse after eating, no radiation or relieving factors; some intermittent mid crampy pain; no N/V; h/o constipation, improved with Miralax, but change in stool consistency, no blood or mucous; no wt loss; no melena or hematochezia; some GERD symptoms, worse at night; takes over the counter PPI at times; no dysphagia or early satiety; no postprandial symptoms; abd operations significant for cholecystectomy, no previous colonoscopy; on baby asa daily, no NSAIDS, no SBE prophylaxis; fmhx of Crohn's disease in patient's brother, and Ulcerative colitis in patient's son; no fmhx of GI malignancy; no tobacco use. Review of Systems PHQ Score Initial Depression Screen Score: 0 ROS - Provider Constitutional: no fever, no sweats, no weight loss. Eyes: no glasses, no blurred vision, no visual loss. ENMT: no dentures, no hoarseness, no swallowing difficulties, no hearing loss, no ear infection(s), no nose bleeds. Cardiovascular: normal blood pressure, no chest pain, regular heartbeat, no heart murmur. Respiratory: no shortness of breath, no cough, no asthma, no wheezing. Gastrointestinal: no nausea, no vomiting, no diarrhea, yes constipation, no blood in stool, yes change in bowel habits, yes abdominal pain, no hepatitis. Genitourinary: no kidney stones, no urine infection, no dysuria. Musculoskeletal: no pain, no weakness. Skin: no changing moles, no rash, no skin lumps. Neurologic: no seizures, no epilepsy, no headache. Psychiatric: no emotional or psychiatric problem. Heme/Lymph: no bleeding problems, no anemia, no blood clots, no transfusions. Allergy/Immunologic: no swollen lymph nodes/glands, no IV drug abuse. Other: Additional ROS info: Except as noted in the above Review of Systems and in the History of Present Illness, all other systems have been reviewed and are negative or noncontributory. Physical Exam Vitals & Measurements HR: 70(Peripheral) RR: 16 BP: 134/96 HT: 64 in HT: 162.5 cm WT: 78.2 kg WT: 172.04 lb BMI: 29.61 HEENT: normal conjunctiva, sclera clear, no scleral icterus, EOM intact, PERRLA. oral mucosa moist without lesions Neck: trachea midline , no mass, symmetric, no thyromegaly or nodules. no adenopathy Respiratory: lungs CTA, respirations non labored. Cardiovascular: regular rate and rhythm, no murmur, , no pedal edema or varicosities. Gastrointestinal: soft, non distended, no tenderness, no masses, no palpable hernias, diastasis recti no, no hepatosplenomegaly. normal bs Lymphatic: no cervical adenopathy, no supraclavicular adenopathy Musculoskeletal: normalgait, digits and nails without infection, nodes, cyanosis, clubbing. Skin: no rashes, no lesions, no ulcers, no subcutaneous nodules, induration. Psychiatric/Neuro: oriented to time, place, person, judgement normal, affect appropriate for age, insight intact, no focal deficits. Tests: review of old records completed, Discussed surgical options, risks, and possible complications with patient. Assessment/Plan 1. Change in bowel habits (R19.4: Change in bowel habit) plan EGD and colonoscopy under anesthesia for further evaluation; informed consent obtained. 2. Epigastric pain (R10.13: Epigastric pain) see # 1 3. GERD (gastroesophageal reflux disease) (K21.9: Gastro-esophageal reflux disease without esophagitis) see # 1 Follow-up No qualifying data available Problem List/Past Medical History Ongoing Adrenal adenoma Anxiety BMI 29.0-29.9,adult Cervical disc disease Change in bowel habits Constipation Depression Dysuria Epigastric pain Feeling of incomplete bladder emptying GERD (gastroesophageal reflux disease) H/O urethral stricture Hx of myocardial infarction Microscopic hematuria Rectocele Seasonal allergies Urine frequency Weak urinary stream Historical Cholecystectomy Hypotension Kidney stone Plantar fasciitis Procedure/Surgical History LEEP (09/12/2017), Cystourethroscopy with dilation of urethral stricture (12/29/2014), Cystourethroscopy with (more content not included)... [facility] Comment on above: Result Comment: Elec tronically Signed By: BRENDA SOTO, Cristo Dueñas\Date and Time Signed: 05/03/22 16:43 EST Evaluation + Plan note Note Date & Type Note Facility Evaluation + Plan note No data available for this section General [facility] History of Present illness Narrative Note Date & Type Note Facility History of Present illness Narrative Is here for follow-up continue management for previous presentation with stress cardiomyopathy, hyperlipidemia and mildly overweight. Since last time I saw her she denies any cardiac complaint of chest pain, palpitation, lightheadedness, dizziness or syncope. She remains reasonably active. Recent laboratory data noted and reviewed with her.ASSESSMENT:1. Prior presentation with stress cardiomyopathy/takotsubo syndrome, echocardiogram subsequently showed normal ejection fraction. She denies any symptoms and describe functional class I.2. Hyperlipidemia with documented history of intolerance to statin. Seem to tolerated Zetia3. Mildly overweight. With recent weight gain4. Prior report of fatigue has improvedPlan1. Patient will remain on the same medication. Patient agreed to go back to the area2. Patient was counseled regarding risk factor modification3. We'll see him back in the office in 1 year4. The patient was advised to lose weight and exercise.5. Reviewed with her her recent lab -[facility] 250 DO Work Phone: History of Present illness Narrative Note Date & Type Note Facility History of Present illness Narrative Patient is here for follow-up continue management for history of stress cardiomyopathy, hyperlipidemia and overweight. She reports she is feeling well. She denies any cardiac complaint. She described functional class I. She denies lightheadedness, dizziness or syncope. She requested clearance for hysterectomy.ASSESSMENT:1. Prior presentation with stress cardiomyopathy/takotsubo syndrome, echocardiogram subsequently showed normal ejection fraction. She denies any symptoms and describe functional class I.2. Hyperlipidemia with documented history of intolerance to statin. Seem to tolerated Zetia3. Mildly overweight. With recent weight gain4. Prior report of fatigue has improved preoperative risk assessment for hysterectomy. Patient is functional class I. She has normal LV systolic function and no coronary artery disease. Her operative risk is acceptablePlan1. Patient will remain on the same medication. Patient agreed to go back to the area2. Patient was counseled regarding risk factor modification3. We'll see him back in the office in 1 year I will try to retrieve her recent labs from [place]4. The patient was advised to lose weight and exercise.5. I reviewed with patient preoperative cardiac risk for her upcoming hysterectomy. I believe her operative risk is acceptable and she can proceed she was given permission to hold aspirin for 7 days prior to surgery [facility] 600 DO Work Phone: Hospital Discharge instructions Note Date & Type Note Facility Hospital Discharge instructions No data available for this section [facility] Progress note Note Date & Type Note Facility Progress note No data available for this section [facility] [place] Summary Purpose Family History No Family History Records FoundUnknown Family Member Name Dates Details Family history of diabetes m ellitus: Mother(V18.0, Z83.3) Status:Active History of PTCA: Mother(V45. 82, Z98.61) Status:Active Unknown Family Member Name Dates Details History of PTCA: Mother(V45. 82, Z98.61) Status:Active Family history of diabetes m ellitus: Mother(V18.0, Z83.3) Status:Active Unknown Family Member Name Dates Details Family history of diabetes m ellitus: Mother(V18.0, Z83.3) Status:Active History of PTCA: Mother(V45. 82, Z98.61) Status:Active Advance Directives No Advanced Directives Records FoundNo Advanced Directives Records FoundNo Advanced Directives Records FoundNo Advanced Directives Records FoundNo Advanced Directives Records FoundNo Advanced Directives Records FoundNo Advanced Directives Records FoundNo Advanced Directives Records Found Chief Complaint CHERYL HECTOR is being seen for an annual follow-up of.CHERYL HECTOR is being seen for poc hysterectomy. Additional Source Comments INFORMATION SOURCE (unrecogn ized section and content) DATE CREATED AUTHOR 09/11/2017 [facility] DATE CREATED AUTHOR AUTHOR'S ORGANIZ ATION 04/15/2020 [facility] DATE CREATED AUTHOR AUTHOR'S ORGANIZ ATION 02/06/2022 [facility] DATE CREATED AUTHOR AUTHOR'S ORGANIZ ATION 06/03/2022 [facility] DATE CREATED AUTHOR AUTHOR'S ORGANIZ ATION 06/21/2022 [facility] DATE CREATED AUTHOR AUTHOR'S ORGANIZ ATION 09/13/2022 [facility] DATE CREATED AUTHOR AUTHOR'S ORGANIZ ATION 09/13/2022 [employer] DATE CREATED AUTHOR AUTHOR'S ORGANIZ ATION 11/08/2022 [facility] Patient Care team informatio n (unrecognized section and content) Personnel Name: Sera Lambert MD Address: Address: [address] [place] [address] Personnel Name: Sera Lambert MD Address: Address: [address] [place] [address] FOR RECORDS PERTAINING TO PATIENTS WHO ARE OR HAVE BEEN ENROLLED IN A CHEMICAL DEPENDENCY/SUBSTANCEABUSE PROGRAM, SOME INFORMATION MAY BE OMITTED. This clinical summary was aggregated from multiple sources. Caution should be exercised in using it in the provision of clinical care. This summary normalizes information from multiple sources, and as a consequence, information in this document may materially change the coding, format and clinical context of patient data. In addition, data may be omitted in some cases. CLINICAL DECISIONS SHOULD BE BASED ON THE PRIMARY CLINICAL RECORDS. [facility] [employer] provides no warranty or guarantee of the accuracy or completeness of information in this document.
[2023-04-25 08:00] LABS: Bilirubin Urine NEGATIVE (NEGATIVE); Blood Urine MODERATE (NEGATIVE); Clarity Urine CLEAR (CLEAR); Color Urine YELLOW (YELLOW); Glucose Urine UA NEGATIVE (NEGATIVE); Ketones Urine NEGATIVE (NEGATIVE); Leukocyte Esterase Urine NEGATIVE (NEGATIVE); Nitrite Urine NEGATIVE (NEGATIVE); Protein Urine NEGATIVE (NEG/TRACE); Specific Gravity Urine >=1.030 (1.005-1.025); Urobilinogen Urine 0.2 EU/dL (0.2-1.0)
[2023-04-25 08:16] LABS: Bacteria Urine NONE SEEN #/HPF (NONE SEEN); Mucus Urine MODERATE (NONE SEEN); Squamous Epithelial Cell Urine FEW #/LPF (NONE/RARE); WBC Urine NONE SEEN #/HPF (NONE SEEN)
[2023-04-25 08:17] LABS: Urine Culture Indicated ALREADY ORDERED
[2023-04-26 12:58] LABS: C. Difficile PCR NEGATIVE (NEGATIVE)
[2023-04-27 16:08] LABS: Cortisol - AM 5.9 ug/dL (6.2-19.4)
[2023-04-28 14:08] LABS: Giardia lamblia Ag, EIA Negative (Negative)
[2023-04-30 00:07] LABS: Calprotectin, Fecal 12 ug/g (0-120)
[2023-05-01 16:15] LABS: Lactoferrin, Fecal, Quant. <1.00 ug/mL(g) (0.00-7.24)
== END 2023-04-25 07:22 | disposition home or self-care (01) ==
LOC: LAB 07:22
PROVIDERS: PCP Family Medicine; Visit Provider Family Medicine
DX: R31.29 Other microscopic hematuria (principal); R10.9 Unspecified abdominal pain; N20.0 Calculus of kidney; R19.7 Diarrhea, unspecified; R30.0 Dysuria
CPT/HCPCS: 36415; 81001; 82533; 82565; 83631; 83993; 84376; 84520; 87045; 87046; 87086; 87150; 87186; 87329; 87427; 87493

== ENCOUNTER 2023-04-25 07:27 | Outpatient (OUT) | payer OTHER, SELFPAY ==
--- OUTSIDE RECORDS SUMMARY | 2023-04-25 07:31 | XMS_ITS | CCD ---
Author Name Unknown Address [address] [facility] [address] [place] [address] Organization [facility] Care Team Providers Care Ethylene Plant Helper Name Role Phone VAMSI SERRANO Unavailable Unavailable MASTJANNA Unavailable Unavailable Mast, Janna E Unavailable Unavailable Unavailable Sera Lambert Primary Care Unavailable Jose Dangelo Attending Unavailable Jose Dangelo Admitting Unavailable Sera Lambert Primary Care Physician [phone] NILL ., DR LEMONS Admitting Unavailable NILL [...] LAMBERT Primary Care Unavailable FAIZAN SNYDER AKHIL [phone]~[id number] SERA Jordan Primary Care Unavailable SERA LAMBERT Primary Care Unavailable PETE ROD Referring Unavailable Allergies Allergy Classification Reported Allergen(s) Allergy Type Date of Onset Reaction(s) Facility (6 sources) Amoxicillin; Translations: [amoxicillin] Drug Allergy [facility] (disorder) [facility] [place] (3 sources) atorvastatin; Translations: [atorvastatin] Drug Allergy [facility] y 250 DO Work Phone: (2 sources) ezetimibe; Translations: [Zetia] Drug Allergy [facility] y 250 DO Work Phone: (4 sources) Hmg-Coa Reductase Inhibitors (Statins); Translations: [Statins] Allergy to drug (finding) [facility] Repository (3 sources) oxyCODONE; Translations: [oxycodone] Drug Allergy [facility] y 250 DO Work Phone: (3 sources) Pravastatin; Translations: [Pravastatin Sodium TABS] Drug Allergy [facility] y 250 DO Work Phone: (1 source) Amoxicillin Drug Allergy 02-22-20 [facility] Repository (1 source) Aspirin Drug Allergy 02-22-20 [facility] (2 sources) Codeine; Translations: [codeine] Drug Allergy 02-22-20 17 [facility] Repository (1 source) oxyCODONE Drug Allergy 02-22-20 [facility] (3 sources) Acetaminophen / oxyCODONE; Translations: [acetaminophen-oxy codone] Drug Allergy Projectile vomiting (disorder) [facility] [place] (3 sources) Aspirin / oxyCODONE; Translations: [aspirin-oxycodone ] Drug Allergy Projectile vomiting (disorder) [facility] (2 sources) Codeine; Translations: [codeine] Drug Allergy Edema (finding) [facility] Surgery [place] (2 sources) HMG-CoA reductase inhibitor; Translations: [statins] Drug allergy Unknown (qualifier value) [facility] [place] (4 sources) Latex; Translations: [latex] Allergy to substance 12-23-19 15 Redness, Itching [facility] (3 sources) NITROFURANTOIN, MACROCRYSTALS / Nitrofurantoin, Monohydrate; Translations: [nitrofurantoin] Drug Allergy Joint pain (finding), Cutaneous eruption (morphologic abnormality) [facility] (1 source) Acetaminophen / oxyCODONE Drug Allergy 05-13-19 23 [facility] Repository (1 source) Adhesive agent Drug allergy (disorder) 12-23-19 15 [facility] (1 source) Amoxicillin Drug Allergy 07-28-19 13 [facility] (1 source) black walnut pollen extract Drug Allergy 05-13-19 23 [facility] (1 source) Codeine Drug Allergy 07-28-19 13 [facility] (1 source) Nitrofurantoin Drug Allergy 12-23-19 15 [facility] (1 source) bandaids; Translations: [bandaids] Propensity to adverse reactions (disorder) [facility] Repository Medications Current Medications Medication Drug [...] UNSPECIFIED] Onset: 3 Other aftercare (1 source) 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; Translations: [RESEARCH PROGRAM COORDINATOR CURRENT USE OF ASPIRIN] Onset: 3 Episodic Other aftercare (1 source) Other fci (current) drug therapy; Translations: [OTH JAIL CURRENT DRUG THERAPY] Onset: 3 Episodic Other [...] Anion gap [Moles/Vol] 10 mmol/L Normal 9-17 [facility] Comment on above: Performed By: #### BMP, CDP, LIP, LIVP, TROPI #### [place] [address] Clothing Man: Kris Pardo MD Calcium [Mass/Vol] 9.3 mg/dL Normal 8.6-10.4 [facility] Comment on above: Performed By: #### BMP, CDP, LIP, LIVP, TROPI #### [place] [address] Clothing Man: Kris Pardo MD Chloride [Moles/Vol] 101 mmol/L Normal 98-107 [facility] Comment on above: Performed By: #### BMP, CDP, LIP, LIVP, TROPI #### [place] [address] Clothing Man: Kris Pardo MD CO2 [Moles/Vol] 28 mmol/L Normal 20-31 [facility] Comment on above: Performed By: #### BMP, CDP, LIP, LIVP, TROPI #### [place] [id number] Clothing Man: Kris Pardo MD Creatinine [Mass/Vol] 0.6 mg/dL Normal 0.5-0.9 [facility] Comment on above: Performed By: #### BMP, CDP, LIP, LIVP, TROPI #### [place] [address] Clothing Man: Kris Pardo MD GFR/1.73 sq M.predicted among non-blacks MDRD (S/P/Bld) [Vol rate/Area] mL/min/{1.73_m2} Normal >60 [facility] Comment on above: Result Comment: These results [...] B MP, CDP, LIP, LIVP, TROPI #### [place] [address] Clothing Man: Kris Pardo MD Glucose [Mass/Vol] 102 mg/dL High 70-99 [facility] Comment on above: Performed By: #### BMP, CDP, LIP, LIVP, TROPI #### [place] [id number] Clothing Man: Kris Pardo MD Potassium [Moles/Vol] 4.3 mmol/L Normal 3.7-5.3 [facility] Comment on above: Performed By: #### BMP, CDP, LIP, LIVP, TROPI #### [place] [address] Clothing Man: Kris Pardo MD Sodium [Moles/Vol] 139 mmol/L Normal 135-144 [facility] Comment on above: Performed By: #### BMP, CDP, LIP, LIVP, TROPI #### [place] [id number] Clothing Man: Kris Pardo MD Urea nitrogen [Mass/Vol] 13 mg/dL Normal 6-20 [facility] Comment on above: Performed By: #### BMP, CDP, LIP, LIVP, TROPI #### [place] [id number] Clothing Man: Kris Pardo MD CBC with Diffon 10-25-2022 Abs. Basophil 0.10 k/uL Normal 0.0-0.2 [facility] Comment on above: Performed By: #### BMP, CDP, LIP, LIVP, TROPI #### [place] [address] Clothing Man: Kris Pardo MD Abs.Neutrophil (Seg) 7.10 k/uL Normal 1.8-7.7 [facility] Comment on above: Performed By: #### BMP, CDP, LIP, LIVP, TROPI #### [place] [address] Clothing Man: Kris Pardo MD Basophils/100 WBC (Bld) 1 % Normal 0-2 [facility] Comment on above: Performed By: #### BMP, CDP, LIP, LIVP, TROPI #### [place] [address] Clothing Man: Kris Pardo MD Eosinophils (Bld) [#/Vol] 0.50 10*3/uL High 0.0-0.4 [facility] Comment on above: Performed By: #### BMP, CDP, LIP, LIVP, TROPI #### [place] [address] Clothing Man: Kris Pardo MD Eosinophils/100 WBC (Bld) 5 % High 1-4 [facility] Comment on above: Performed By: #### BMP, CDP, LIP, LIVP, TROPI #### [place] [address] Clothing Man: Kris Pardo MD Erythrocyte distribution width (RBC) [Ratio] 12.9 % Normal 12.5-15.4 [facility] Comment on above: Performed By: #### BMP, CDP, LIP, LIVP, TROPI #### [place] [address] Clothing Man: Kris Pardo MD Hematocrit (Bld) [Volume fraction] 36.9 % Normal 36-46 [facility] Comment on above: Performed By: #### BMP, CDP, LIP, LIVP, TROPI #### [place] [address] Clothing Man: Kris Pardo MD Hemoglobin (Bld) [Mass/Vol] 12.5 g/dL Normal 12.0-16.0 [facility] Comment on above: Performed By: #### BMP, CDP, LIP, LIVP, TROPI #### [place] [address] Clothing Man: Kris Pardo MD Lymphocytes (Bld) [#/Vol] 1.20 10*3/uL Normal 1.0-4.8 [facility] Comment on above: Performed By: #### BMP, CDP, LIP, LIVP, TROPI #### [place] [address] Clothing Man: Kris Pardo MD Lymphocytes/100 WBC (Bld) 13 % Low 24-44 [facility] Comment on above: Performed By: #### BMP, CDP, LIP, LIVP, TROPI #### [place] [address] Clothing Man: Kris Pardo MD MCH (RBC) [Entitic mass] 29.9 pg Normal 26-34 [facility] Comment on above: Performed By: #### BMP, CDP, LIP, LIVP, TROPI #### [place] [address] Clothing Man: Kris Pardo MD MCHC (RBC) [Mass/Vol] 33.9 g/dL Normal 31-37 [facility] Comment on above: Performed By: #### BMP, CDP, LIP, LIVP, TROPI #### [place] [address] Clothing Man: Kris Pardo MD MCV (RBC) [Entitic vol] 88.0 fL Normal 80-100 [facility] Comment on above: Performed By: #### BMP, CDP, LIP, LIVP, TROPI #### [place] [address] Clothing Man: Kris Pardo MD Monocytes (Bld) [#/Vol] 0.60 10*3/uL Normal 0.1-1.2 [facility] Comment on above: Performed By: #### BMP, CDP, LIP, LIVP, TROPI #### [place] [address] Clothing Man: Kris Pardo MD Monocytes/100 WBC (Bld) 6 % Normal 2-11 [facility] Comment on above: Performed By: #### BMP, CDP, LIP, LIVP, TROPI #### [place] [address] Clothing Man: Kris Pardo MD Neutrophil (Seg) 75 % High 36-66 [facility] Comment on above: Performed By: #### BMP, CDP, LIP, LIVP, TROPI #### [place] [address] Clothing Man: Kris Pardo MD Platelet mean volume (Bld) [Entitic vol] 7.6 fL Normal 6.0-12.0 [facility] Comment on above: Performed By: #### BMP, CDP, LIP, LIVP, TROPI #### [place] [address] Clothing Man: Kris Pardo MD Platelets (Bld) [#/Vol] 287 10*3/uL Normal 140-450 [facility] Comment on above: Performed By: #### BMP, CDP, LIP, LIVP, TROPI #### [place] [address] Clothing Man: Kris Pardo MD RBC (Bld) [#/Vol] 4.20 10*6/uL Normal 4.0-5.2 [facility] Comment on above: Performed By: #### BMP, CDP, LIP, LIVP, TROPI #### [place] [address] Clothing Man: Kris Pardo MD WBC (Bld) [#/Vol] 9.4 10*3/uL Normal 3.5-11.0 [facility] Comment on above: Performed By: #### BMP, CDP, LIP, LIVP, TROPI #### [place] [address] Clothing Man: Kris Pardo MD CT ABDOMEN PELVIS W [...] Saeed Ortega MD 10/25/22 Final result Normal [facility] Lipaseon 10-25-2022 Lipase [Catalytic activity/Vol] 26 U/L Normal 13-60 [facility] Comment on above: Performed By: #### BMP, CDP, LIP, LIVP, TROPI #### [place] [id number] [place] [address] Clothing Man: Kris Pardo MD Liver Profileon 10-25-2022 Albumin [Mass/Vol] 4.2 g/dL Normal 3.5-5.2 [facility] Comment on above: Performed By: #### BMP, CDP, LIP, LIVP, TROPI #### [facility] [address] [place] [address] Clothing Man: Kris Pardo MD Albumin/Glob Ratio 1.7 Normal 1.0-2.5 [facility] Comment on above: Performed By: #### BMP, CDP, LIP, LIVP, TROPI #### [place] [address] Clothing Man: Kris Pardo MD Alkaline Phos 67 U/L Normal 35-104 [facility] Comment on above: Performed By: #### BMP, CDP, LIP, LIVP, TROPI #### [place] [address] Clothing Man: Kris Pardo MD ALT [Catalytic activity/Vol] 23 U/L Normal 5-33 [facility] Comment on above: Performed By: #### BMP, CDP, LIP, LIVP, TROPI #### [place] [address] Clothing Man: Kris Pardo MD AST [Catalytic activity/Vol] 21 U/L Normal <32 [facility] Comment on above: Performed By: #### BMP, CDP, LIP, LIVP, TROPI #### [place] [address] Clothing Man: Kris Pardo MD Bilirubin [Mass/Vol] 0.3 mg/dL Normal 0.3-1.2 [facility] Comment on above: Performed By: #### BMP, CDP, LIP, LIVP, TROPI #### [place] [address] Clothing Man: Kris Pardo MD Bilirubin, Indirect 0.2 mg/dL Normal 0.0-1.0 [facility] Comment on above: Performed By: #### BMP, CDP, LIP, LIVP, TROPI #### [place] [id number] Clothing Man: Kris Pardo MD Bilirubin.indire ct [Mass/Vol] 0.1 mg/dL Normal <0.3 [facility] Comment on above: Performed By: #### BMP, CDP, LIP, LIVP, TROPI #### [place] [id number] Clothing Man: Kris Pardo MD Protein [Mass/Vol] 6.7 g/dL Normal 6.4-8.3 [facility] Comment on above: Performed By: #### BMP, CDP, LIP, LIVP, TROPI #### [place] [address] Clothing Man: Kris Pardo MD Troponinon 10-25-2022 Troponin, High Sens 7 ng/L Normal 0-14 [facility] Comment on above: Result Comment: High Sensitivity Troponi n values cannot be compared with other Troponin methodologies. Performed By: #### B MP, CDP, LIP, LIVP, TROPI #### [place] [address] Clothing Man: Kris Pardo MD UA w/Reflex Cultureon 2022 Bilirubin, SemiQt,Ur Negative Normal NEG [facility] Comment on above: Performed By: #### TYS #### [place] [address] Clothing Man: Kris Pardo MD Blood, Urine MODERATE Abnormal NEG [facility] Comment on above: Performed By: #### TYS #### [place] [address] Clothing Man: Kris Pardo MD Clarity (U) Clear Normal CLEAR [facility] Comment on above: Performed By: #### TYS #### [place] [id number] Clothing Man: Kris Pardo MD Color (U) Yellow Normal YEL [facility] Comment on above: Performed By: #### TYS #### [address] [id number] Clothing Man: Kris Pardo MD Glucose Ql (U) Negative Normal NEG [facility] Comment on above: Performed By: #### TYS #### [place] [id number] Clothing Man: Kris Pardo MD Ketones Ql (U) Negative Normal NEG [facility] Comment on above: Performed By: #### TYS #### [place] [address] Clothing Man: Kris Pardo MD Leukocyte esterase Test strip Ql (U) Negative Normal NEG [facility] Comment on above: Performed By: #### TYS #### [place] [address] Clothing Man: Kris Pardo MD Nitrite,Ur Negative Normal NEG [facility] Comment on above: Performed By: #### TYS #### [place] [address] Clothing Man: Kris Pardo MD PH,Ur 7.0 Normal 5.0-8.0 [facility] Comment on above: Performed By: #### TYS #### [place] [id number] Clothing Man: Kris Pardo MD Protein Ql (U) Negative Normal NEG [facility] Comment on above: Performed By: #### TYS #### [place] [address] Clothing Man: Kris Pardo MD Spec. [place],Ur 1.006 Normal 1.005-1.030 [facility] Comment on above: Performed By: #### TYS #### [place] [address] Clothing Man: Kris Pardo MD Urobilinogen,Ur Normal Normal 0.0-1.0 [facility] Comment on above: Performed By: #### TYS #### [place] [address] Clothing Man: Kris Pardo MD Urinalysis,Microon 3 Bacteria FEW Abnormal NONE [facility] Comment on above: Performed By: #### TYS #### [place] [address] Clothing Man: Kris Pardo MD Epithelial cells LM Ql (Urine sed) 0 TO 2 Normal 0-5 [facility] Comment on above: Performed By: #### TYS #### [place] [address] Clothing Man: Kris Pardo MD Other Observations Utilizing a urinalysis as the only screening method to exclude a potential Abnormal NREQ [facility] Comment on above: Result Comment: uropathogen can be unrel iable in many patient populations. Rapid screening tests are less sensitive than culture and if UTI is a clinical possibility, culture should be considered despite a negative urinalysis. Performed By: #### T YS #### [place] [address] Clothing Man: Kris Pardo MD Urine RBC's 20 TO 50 Normal 0-2 [facility] Comment on above: Performed By: #### TYS #### [place] [address] Clothing Man: Kris Pardo MD Urine WBC's 0 TO 2 Normal 0-5 [facility] Comment on above: Performed By: #### TYS #### [place] [address] Clothing Man: Kris Pardo MD Hgb/Hcton 10-21-2022 Hematocrit (Bld) [Volume fraction] 38.0 % Normal 36-46 [facility] Comment on above: Performed By: #### HH #### [place] [address] Clothing Man: Kris Pardo MD Hemoglobin (Bld) [Mass/Vol] 12.6 g/dL Normal 12.0-16.0 [facility] Comment on above: Performed By: #### HH #### [place] [address] Clothing Man: Kris Pardo MD OPERATIVE REPORTon OPERATIVE REPORT [address] [address] OPERATIVE REPORT PATIENT NAME: CHERYL HECTOR : 1965 MED REC NO: [id number] ROOM: ACCOUNT NO: [id number] ADMIT DATE: 10/21/2022 PROVIDER: Pete Rod DO [...] Robotic-assisted laparoscopic hysterectomy with bilateral salpingectomy, internal [place] culdoplasty with uterosacral suspension and enterocele repair, [...] bladder was drained with Jarvis catheter. A XYZE uterine manipulator was placed without incident. The [...] right upper quadrant as an accessory assistant pressman port. The robot was docked with arms [...] The vaginal cuff was then closed with [id number] mucosal-mucosal Vicryl sutures incorporating the cuff angles [...] fascial closure (more content not included)... Normal [facility] Surgical Pathologyon 023 Surgical Pathology (NOTE) Path Number: [id number] -- Diagnosis -- A. UTERUS, CERVIX, AND [...] lumen lined by a meza-pink, soft mucosa. Senior Government Program Analyst sections are submitted in [facility] as follows: 1 anterior cervix 2 posterior cervix 3 endomyometrial polyps 4 anterior endomyometrium 5 posterior endomyometrium 6-7 intramural and subserosal nodules, security representative 8-9 one entire fallopian tube 10-12 one entire fallopian tube. B. CHERYL HECTOR VAGINAL MUCOSA Received in formalin are three fragments of meza-calvillo, wrinkled and ragged vaginal mucosa ranging from 1.6 to 7.5 cm. Sectioning reveals meza-pink, rubbery cut surfaces with no obvious masses or lesions identified. Senior Government Program Analyst sections 1c. tm Microscopic Description A, B. Microscopic examination performed. Processing Lab: [address] [address] Interpretation Performed at [address] [address] SURGICAL PATHOLOGY CONSULTATION Patient Name: CHERYL HECTOR [facility] Rec: [id number] [facility] CONSULTING PATHOLOGISTS [facility] ANATOMIC PATHOLOGY [facility] [place], [place] [address] Normal [facility] Type + Screenon 10-21-2022 Type + Screen Sample Expiration 10/24/2022,2359 Arm Band Number [id number] ABO/Rh(D) O POSITIVE Antibody Screen NEGATIVE [facility] Comment on above: Performed By: #### TYS #### [address] [address] Clothing Man: Kris Pardo MD Type + Screenon 10-14-2022 Type + Screen Sample Expiration 10/24/2022,2359 Arm Band Number [id number] ABO/Rh(D) O POSITIVE Antibody Screen NEGATIVE Normal [facility] Comment on above: Performed By: #### TYS #### [address] [address] Clothing Man: Kris Pardo MD Office Visit (Cardiology)on 09-12-2022 [...] try to retrieve her recent labs from [place] 4. The patient was advised to lose [...] Signs Recorded: 12Sep2022 12:04PM Heart Rate70, Apical Xlgsxvsd427, LUE, Sitting Pemuavcky38, LUE, Sitting Height5 ft 4 in Euiocm084 lb BMI Fneongidbc62.67 kg/m2 BSA Calculated1.81 Tobacco Useb) No PHQ-2 #1. Over the last 2 weeks have you felt down, depressed or hopeless? (If yes, answer PHQ-9 below)No PHQ-2 #2. Over the last 2 weeks have you felt little interest or pleasure in doin (more content not included)... Normal [facility] Tobacco Screening.on 023 Adult depression screening assessment No [facility] [employer] 600 DO Work Phone: Fall risk assessment a) No falls within the last year [facility] 600 DO Work Phone: Tobacco use status CPHS b) No [facility] [employer] 600 DO Work Phone: Ambulatory Visit Summaryon [...] Hypotension Kidney stone Plantar fasciitis Normal [facility] General Surgery Office/Clini c Noteon 06-05-2022 General [...] SARS-CoV-2 (COVID-19) mRNA-1273 vaccine 04/21/2020 Recorded Normal [facility] Comment on above: Result Comment: Electronically Signed By : BRENDA SOTO, Cristo Arias\.br\Date and Time Signed: 06/05/22 16:56 EDT Pathology Noteon 06-03-2022 Pathology Note [id number]:127 [facility] Outside Colonoscopyon 2022 Outside Colonoscopy [id number]#1.00CD:127 [facility] Reminderson 05-30-2022 Reminders - From: Nedra Juares LPN To: GSN - Clinical; Sent: 05/30/2022 09:37:12 EST Show up: 05/01/2032 07:00:00 EST Subject: colonoscopy recall Due Date/Time: 05/29/2032 07:00:00 EST Reminder/Recall Patient is due for screening colonoscopy 05/29/2032. [facility] Facesheeton 05-07-2022 Facesheet [id number]#1.00CD:127 [facility] Consent for Procedure/Surger yon 05-06-2022 Consent for Procedure/Surger y [id number]#1.00CD:127 [facility] Ambulatory Visit Summaryon 0 05-03-2022 Ambulatory Visit Summary CHERYL HECTOR Abeba :1965 Visit Date:05/03/2022 Ambulatory Visit Instructions Your Care Team Attending Physician - RBENDA SOTO, Cristo Arias Primary Care Physician - [...] Cholecystectomy Hypotension Kidney stone Plantar fasciitis Normal [facility] Physician Referralon 023 Physician Referral [id number]:127 Normal [facility] MM screening mammo BI w/CADo n 01-24-2022 MM screening mammo BI w/CAD [facility] [place] [address] [place], [place] [address] Mammography Report Signed Patient: Cheryl Hector MR#: [id number] : 1965 Acct:[id number] Age/Sex: 56 / F ADM Date: 01/24/22 Loc: [place] Room: Type: [facility] Attending Dr: Jose Dangelo MD Copies [...] Kunal Osorio M.D.01/24/2022 4:44 PM Dictation Location: [facility] Transcribed By: [facility] 01/24/22 1054 Dictated By: Kunal Osorio II, MD 01/24/22 1640 Signed By: 01/24/22 0394 [facility] Tobacco Screening.on 022 Adult depression screening assessment No [facility] [employer] [address] DO Work Phone: Tobacco use status CPHS b) No [facility] [employer] [address] DO Work Phone: CNOVon 09-10-2019 CNOV Office Visit (UROLMN ) CHERYL HECTOR ([id number]) 1965 F Date Time Provider Department 09/10/19 9:00 AM WILMER LOVELACE During your visit today, we recorded the following information about you: Wilmer Lovelace MD 11/05/2019 11:22 AM Addendum [facility] [...] before COVID 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 #:[id number] URINALYSIS WITH MICROSCOPIC [SQUAWMIC] Order #: [id number] FUTURE conjugated estrogens (PREMARIN) vaginal creamUse 0.5 g vaginally once daily.Disp: 42.5 gRfl: 3 URINALYSIS WITH MICROSCOPIC [SQUAWMIC] Order #: [id number]. #:[id number] Prescriptions as of 09/10/2019 Sig: ESTRADIOL 10 MCG VAGINAL TABL* Use 1 tablet vaginally. PREMARIN 0.625 MG/GRAM VAGINA* Use 0.5 g vaginally once joaquina* Problem List As Of Date: 09/10/2019 (None) Other instructions from your clinician: [facility] [place] Recurrent UTI Step Prevention Program: Takes 6 [...] such as miralax. We would suggest avoiding fci use of laxatives though and if you [...] by WILMER LOVELACE MD on 09/10/19 Normal [facility] PROGRESSon 09-10-2019 PROGRESS HNO ID: [id number] Author: Wilmer Lovelace Service: ? 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 [place] Recurrent microscopic hematuria Cystoscopy and renal US [...] breath CARDIOVASCULAR: Negative for chest pain or AL GI: SEE HPI GENITOURINARY: SEE HPI ENDOCRINE:No [...] work-up including cysto and ANA performed by [facility] urologist in [phone] - Will send off UA with microscopy [...] Medicine and Reconstructive Surgery Electronically signed Normal [facility] Urinalysis with Microscopico n 09-10-2019 Bilirubin, Urine Negative Normal Negative [facility] [facility] Comment on above: Performed By: #### UAWMIC #### [place] [phone] Clarity (U) Clear Normal Clear [facility] Comment on above: Performed By: #### UAWMIC #### [place] [phone] Color (U) Colorless Critically abnormal Yellow [facility] Comment on above: Performed By: #### UAWMIC #### [place] [phone] Comments SEE COMMENT Normal [facility] Comment on above: Result Comment: N/A Performed By: #### U AWMIC #### [place] [id number] [place] [phone] Glucose Ql (U) Negative Normal Negative [facility] Comment on above: Performed By: #### UAWMIC #### [place] [phone] Hemoglobin/Blood ,Ur 1+ Critically abnormal Negative [facility] Comment on above: Performed By: #### UAWMIC #### [place] [phone] Ketones Ql (U) Negative Normal Negative [facility] Comment on above: Performed By: #### UAWMIC #### [facility] [address] [place] [address] Leukest Negative Normal Negative [facility] Comment on above: Performed By: #### UAWMIC #### [place] [id number] [place], [place] [address] Nitrite Ql (U) Negative Normal Negative [facility] Comment on above: Performed By: #### UAWMIC #### [place] [id number] [place] [address] pH (Bld) 6.0 Normal 5.0-8.0 [facility] Comment on above: Performed By: #### UAWMIC #### [place] [address] Protein (U) [Mass/Vol] Negative Normal Negative [facility] Comment on above: Performed By: #### UAWMIC #### [place] [address] RBC (U) [#/Vol] 0-3 Normal 0-3 [facility] Comment on above: Performed By: #### UAWMIC #### [place] [id number] Specific [place], Ur 1.006 Normal 1.005-1.030 [facility] Comment on above: Performed By: #### UAWMIC #### [place] [id number] [place] [id number] Urine Noman Comment SEE COMMENT Normal [facility] Comment on above: Result Comment: N/A Performed By: #### U AWMIC #### [place] [id number] [place], [place] [address] Urobilinogen Qn (U) Negative Normal Negative [facility] Comment on above: Performed By: #### UAWMIC #### [facility] [employer] [address] [place], [place] [address] WBC (Bld) [#/Vol] 0-5 Normal 0-5 [facility] Comment on above: Performed By: #### UAWMIC #### [facility] [employer] [address] [place], [place] [address] Vital Signs Date Time Vital Sign Value Performing Clinician Facility 09-12-2022 12:04-0400 Body height 162.56 cm Janna E Mast Work Phone: [facility] 600 DO Work Phone: 09-12-2022 12:04-0400 Body mass index (BMI) [Ratio] 28.67 kg/m2 Janna E Mast Work Phone: [facility] 600 DO Work Phone: 09-12-2022 12:04-0400 Body surface area Derived from formula 1.81 m2 Janna E Mast Work Phone: [facility] 600 DO Work Phone: 09-12-2022 12:04-0400 Body weight 75.75 kg Janna E Mast Work Phone: [facility] 600 DO Work Phone: 09-12-2022 12:04-0400 Diastolic blood pressure 70 mm[Hg] Janna E Mast Work Phone: [facility] 600 DO Work Phone: 09-12-2022 12:04-0400 Heart rate 70 /min Janna E Mast Work Phone: [facility] 600 DO Work Phone: 09-12-2022 12:04-0400 Systolic blood pressure 104 mm[Hg] Janna E Mast Work Phone: [facility] 600 DO Work Phone: 05-03-2022 15:33-0500 Blood Pressure Location Cristo CROCKER [facility] [place] 05-03-2022 15:33-0500 Diastolic blood pressure 96 mm[Hg] Cristo NILL [facility] [place] 05-03-2022 15:33-0500 Heart rate 70 /min Cristo NILL [facility] [place] 05-03-2022 15:33-0500 Respiratory rate 16 /min Cristo ELLISONL [facility] [place] 05-03-2022 15:33-0500 Systolic blood pressure 134 mm[Hg] Cristo NILL [facility] [place] 05-22-2021 16:14-0500 Diastolic blood pressure 85 mm[Hg] Janna E Mast Work Phone: [facility] 250 DO Work Phone: 05-22-2021 16:14-0500 Systolic blood pressure 122 mm[Hg] Janna E Mast Work Phone: [facility] 250 DO Work Phone: 05-22-2021 15:57-0500 Body height 162.56 cm Janna E Mast Work Phone: [facility] 250 DO Work Phone: 05-22-2021 15:57-0500 Body mass index (BMI) [Ratio] 28.32 kg/m2 Janna E Mast Work Phone: [facility] 250 DO Work Phone: 05-22-2021 15:57-0500 Body surface area Derived from formula 1.8 m2 Janna E Mast Work Phone: [facility] 250 DO Work Phone: 05-22-2021 15:57-0500 Body weight 74.84 kg Janna E Mast Work Phone: [facility] 250 DO Work Phone: 05-22-2021 15:57-0500 Diastolic blood pressure 100 mm[Hg] Janna E Mast Work Phone: [facility] 250 DO Work Phone: 05-22-2021 15:57-0500 Heart rate 80 /min Janna E Mast Work Phone: [facility] 250 DO Work Phone: 05-22-2021 15:57-0500 Systolic blood pressure 140 mm[Hg] Janna E Mast Work Phone: [facility] 250 DO Work Phone: 05-16-2021 10:56-0500 102.2 1 Janna E Mast Work Phone: [facility] 250 DO Work Phone: Comment on above: FSLDL Encounters Encounter Date Encounter Type Care Provider Facility Start: 10-25-2022 End: 10-25-2022 Emergency department patient visit FAIZAN Us~[id number] [facility] Start: 10-21-2022 End: 10-21-2022 ambulatory PETE ROD [facility] Start: 10-14-2022 End: 10-15-2022 ambulatory SERA LAMBERT [facility] Start: 09-12-[address] Vamsi Serrano Facility: Start: 09-12-2022 Patient encounter procedure Janna E Mast Work Phone: [facility] 600 DO Work Phone: Start: 06-05-2022 End: 06-06-2022 ambulatory Cristo CROCKER Facility: [facility] Start: 06-05-2022 End: 06-05-2022 Patient encounter procedure Cristo CROCKER [facility] Start: 06-03-2022 Telephone encounter Jannaranda Chaves t Work Phone: [facility] 600 DO Work Phone: Start: 05-29-2022 End: 05-30-[address] CRISTO CROCKER . Facility: Start: 05-03-2022 End: 05-04-2022 ambulatory Sera Lambert Facility:[facility] Start: 05-03-2022 End: 05-03-2022 Patient encounter procedure Cristo CROCKER General [facility] [place] Start: 04-25-2022 ambulatory Cristo CROCKER Facility :[facility] Start: 01-24-2022 End: 01-24-2022 ambulatory Sera Lambert Facility:[facility] Start: 05-22-2021 Office outpatient vi sit 15 minutes Janna E Mast Work Phone: [facility] 250 DO Work Phone: Start: 07-02-2017 Ambulatory VAMSI SERRANO Faci lity:[id number] Patient encounter status Janna E Mast Work Phone: [facility] 600 DO Work Phone: Procedures Date Procedure [...] Vamsi Serrano, Status: Pen, Time: 10:10 AM [facility] 600 DO Work Phone: Start: 10-08-2022 FUV, Provider: Vamsi Serrano, Status: Pen, Time: 2:00 PM FUV, Provider: Vamsi Serrano, Status: Pen, Time: 2:00 PM [facility] 600 DO Work Phone: Start: 06-04-2022 FUV, Provider: Vamsi Serrano, Status: Pen, Time: 3:50 PM FUV, Provider: Vamsi Serrano, Status: Pen, Time: 3:50 PM [facility] 250 DO Work Phone: Immunizations Immunization Date Immunization Notes Care Provider Fa pilar 01-23-2022 influenza, seasonal, injectable Janna E Mast Work Phone: [facility] 600 DO Work Phone: 01-22-2022 influenza virus vacc ine, unspecified formulation Cristo NILL [facility] [place] 03-19-2021 Moderna COVID-19 Vac cine 100 MCG/0.5ML Intramuscular Suspension Janna E Mast Work Phone: [facility] [place] 05-19-2020 Moderna COVID-19 Vac cine 100 MCG/0.5ML Intramuscular Suspension Janna E Mast Work Phone: [facility] [place] 04-21-2020 Moderna COVID-19 Vac cine 100 MCG/0.5ML Intramuscular Suspension Janna E Mast Work Phone: General [facility] 01-18-2020 influenza virus vacc ine, unspecified formulation Janna E Mast Work Phone: [facility] 250 DO Work Phone: 12-23-2019 influenza virus vacc ine, unspecified formulation Janna E Mast Work Phone: [facility] 250 DO Work Phone: 01-06-2018 influenza virus vacc ine, unspecified formulation Janna E Mast Work Phone: [facility] 250 DO Work Phone: 12-22-2016 influenza virus vacc ine, unspecified formulation Janna E Mast Work Phone: [facility] 250 DO Work Phone: 01-21-2002 hepatitis B vaccine, adult dosage Janna E Mast Work Phone: [facility] 250 DO Work Phone: Payers Date Payer Category Payer Self-pay 1965 Unknown [id number] 1965 Unknown [id number] 1965 Unknown [id number] 1965 Unknown [id number] 1963 Unknown [id number] 1965 Unknown [id number] 1965 Unknown [id number] 1963 Unknown [id number] 1963 Unknown [id number] 1959 Unknown [id number] Unknown [facility] Unknown [id number] Social History Date Type Detail Facility Social alcohol use Social alcohol use [place] [address] DO Work Phone: Start: 05-03-2022 Tobacco smoking status Never s moked tobacco (finding) [facility] [place] Tobacco smoking status Never Gener al [facility] Sex Assigned At Female [facility] Functional Status Date Assessment Result Facility 05-03-2022 Functional Status N/A [facility] Clinical Note 05-29-2022 Note Date & [...] good condition. CC: Patient's family physician [facility] Clinical Note 05-03-2022 Note Date & Type [...] (12/29/2014), Cystourethroscopy with (more content not included)... [facility] Comment on above: Result Comment: Elec [...] exercise.5. Reviewed with her her recent lab -[facility] 250 DO Work Phone: History of [...] try to retrieve her recent labs from [place]. The patient was advised to lose weight and exercise.5. I reviewed with patient preoperative cardiac risk for her upcoming hysterectomy. I believe her operative risk is acceptable and she can proceed she was given permission to hold aspirin for 7 days prior to surgery [facility] 600 DO Work Phone: Hospital Discharge instructions Note Date & Type Note Facility Hospital Discharge instructions No data available for this section [facility] Progress note Note Date & Type Note Facility Progress note No data available for this section [facility] [place] Summary Purpose Family History No Family History [...] section and content) DATE CREATED AUTHOR 09/11/2017 [facility] DATE CREATED AUTHOR AUTHOR'S ORGANIZ ATION 04/15/2020 [facility] DATE CREATED AUTHOR AUTHOR'S ORGANIZ ATION 02/06/2022 [facility] DATE CREATED AUTHOR AUTHOR'S ORGANIZ ATION 06/03/2022 [facility] DATE CREATED AUTHOR AUTHOR'S ORGANIZ ATION 06/21/2022 [facility] DATE CREATED AUTHOR AUTHOR'S ORGANIZ ATION 09/13/2022 [facility] DATE CREATED AUTHOR AUTHOR'S ORGANIZ ATION 09/13/2022 [employer] DATE CREATED AUTHOR AUTHOR'S ORGANIZ ATION 11/08/2022 [facility] Patient Care team informatio n (unrecognized section and content) Personnel Name: Sera Lambert MD Address: Address: [address] [place] [address] Personnel Name: Sera Lambert MD Address: Address: [address] [place] [address] FOR RECORDS PERTAINING TO PATIENTS WHO ARE [...] BE BASED ON THE PRIMARY CLINICAL RECORDS. [facility] [employer] provides no warranty or guarantee of the accuracy or completeness of information in this document.
[2023-04-25 08:42] LABS: Estimated GFR (African America >60 (>=60); Estimated GFR (Non-African Ame >60 (>=60)
== END 2023-04-25 07:28 | disposition home or self-care (01) ==
PROVIDERS: PCP Family Medicine
DX: R31.29 Other microscopic hematuria (principal); R10.9 Unspecified abdominal pain; N20.0 Calculus of kidney
CPT/HCPCS: 36415; 82565; 84520

== ENCOUNTER 2023-05-03 08:14 | Outpatient (OUT) | payer OTHER, SELFPAY ==
--- OUTSIDE RECORDS SUMMARY | 2023-05-03 08:19 | XMS_ITS | CCD ---
Author Name Unknown Address [address] [facility] [address] [place] [address] Organization [facility] Care Team Providers Care Business Continuity Global Director Name Role Phone VAMSI SERRANO Unavailable Unavailable MASTJANNA Unavailable Unavailable Mast, Janna E Unavailable Unavailable Unavailable Sera Lambert Primary Care Unavailable Jose Dangelo Attending Unavailable Jose Dangelo Admitting Unavailable Sera Lambert Primary Care Physician [phone] NILL ., DR LEMONS Admitting Unavailable NILL ., DR LEMONS Attending Unavailable HOY ., DR ZAMORA Primary Care Unavailable NILL ., DR LEMONS Consulting Unavailable SPENCER RAY Consulting Unavailable FAIZAN WILD Consulting Unavailable NILLCristo Attending Unavailable Sera Lmabert Referring Unavailable Sera Lambert Referring Unavailable NILLCristo Attending Unavailable SCOTLCristo Attending Unavailable Cristo CROCKER Attending Unavailable Maggie, Dr. Noel Referring Unavaila ble Trabsusana, Dr. Noel Attending Unavaila ble Catherine, Dr. Janna Marti Primary Care Unavailabl PETE Reyna Admitting Unavailable PETE ROD Attending Unavailable SERA LAMBERT Primary Care Unavailable FAIZAN SNYDER AKHIL [id number] SERA Jordan Primary Care Unavailable SERA LAMBERT Primary Care Unavailable PETE ROD Referring Unavailable Allergies Allergy Classification Reported Allergen(s) Allergy Type Date of Onset Reaction(s) Facility (6 sources) Amoxicillin; Translations: [amoxicillin] Drug Allergy [facility] (disorder) [facility] [place] (3 sources) atorvastatin; Translations: [atorvastatin] Drug Allergy [facility] y 250 DO Work Phone: (2 sources) ezetimibe; Translations: [Zetia] Drug Allergy [facility] y 250 DO Work Phone: (4 sources) Hmg-Coa Reductase Inhibitors (Statins); Translations: [Statins] Allergy to drug (finding) [facility] Repository (3 sources) oxyCODONE; Translations: [oxycodone] Drug Allergy [facility] y 250 DO Work Phone: (3 sources) Pravastatin; Translations: [Pravastatin Sodium TABS] Drug Allergy [facility] y 250 DO Work Phone: (1 source) Amoxicillin Drug Allergy 02-22-20 Repository (1 source) Aspirin Drug Allergy 02-22-20 Repository (2 sources) Codeine; Translations: [codeine] Drug Allergy 02-22-20 17 Repository (1 source) oxyCODONE Drug Allergy 02-22-20 Repository (3 sources) Acetaminophen / oxyCODONE; Translations: [acetaminophen-oxy codone] Drug Allergy Projectile vomiting (disorder) [facility] [place] (3 sources) Aspirin / oxyCODONE; Translations: [aspirin-oxycodone ] Drug Allergy Projectile vomiting (disorder) [facility] (2 sources) Codeine; Translations: [codeine] Drug Allergy Edema (finding) [facility] [place] (2 sources) HMG-CoA reductase inhibitor; Translations: [statins] Drug allergy Unknown (qualifier value) [facility] [place] (4 sources) Latex; Translations: [latex] Allergy to substance 12-23-19 15 Redness, Itching [facility] [place] [facility] (3 sources) NITROFURANTOIN, MACROCRYSTALS / Nitrofurantoin, Monohydrate; Translations: [nitrofurantoin] Drug Allergy Joint pain (finding), Cutaneous eruption (morphologic abnormality) [facility] (1 source) Acetaminophen / oxyCODONE Drug Allergy 05-13-19 23 [facility] Repository (1 source) Adhesive agent Drug allergy (disorder) 12-23-19 15 [facility] Repository (1 source) Amoxicillin Drug Allergy 07-28-19 13 [facility] Repository (1 source) black walnut pollen extract Drug Allergy 05-13-19 23 [facility] Repository (1 source) Codeine Drug Allergy 07-28-19 13 [facility] Repository (1 source) Nitrofurantoin Drug Allergy 12-23-19 15 [facility] Repository (1 source) bandaids; Translations: [bandaids] Propensity to adverse reactions (disorder) [facility] Repository Medications Current Medications Medication Drug [...] UNSPECIFIED] Onset: 3 Other aftercare (1 source) tank terminal 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 (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) use of aspirin; Translations: [JAIL CURRENT USE OF ASPIRIN] Onset: 3 Episodic Other aftercare (1 source) Other tank terminal gauger (current) drug therapy; Translations: [OTH JAIL CURRENT [...] Anion gap [Moles/Vol] 10 mmol/L Normal 9-[address] [facility] Comment on above: Performed By: #### BMP, CDP, LIP, LIVP, TROPI #### [place] [address] Neonatal Intensive Care Unit Nurse: Kris Pardo MD Calcium [Mass/Vol] 9.3 mg/dL Normal 8.6-10.[address] [facility] Comment on above: Performed By: #### BMP, CDP, LIP, LIVP, TROPI #### [place] [address] Neonatal Intensive Care Unit Nurse: Kris Pardo MD Chloride [Moles/Vol] 101 mmol/L Normal 98-[address] [facility] Comment on above: Performed By: #### BMP, CDP, LIP, LIVP, TROPI #### [place] [address] Neonatal Intensive Care Unit Nurse: Kris Pardo MD CO2 [Moles/Vol] 28 mmol/L Normal 20-[address] [facility] Comment on above: Performed By: #### BMP, CDP, LIP, LIVP, TROPI #### [place] [id number] Neonatal Intensive Care Unit Nurse: Kris Pardo MD Creatinine [Mass/Vol] 0.6 mg/dL Normal 0.5-0.[address] [facility] Comment on above: Performed By: #### BMP, CDP, LIP, LIVP, TROPI #### [place] [address] Neonatal Intensive Care Unit Nurse: Kris Pardo MD GFR/1.73 sq M.predicted among non-blacks MDRD (S/P/Bld) [Vol rate/Area] mL/min/{1.73_m2} Normal >[address] [facility] Comment on above: Result Comment: These [...] B MP, CDP, LIP, LIVP, TROPI #### [place] [address] Neonatal Intensive Care Unit Nurse: Kris Pardo MD Glucose [Mass/Vol] 102 mg/dL High 70-[address] [facility] Comment on above: Performed By: #### BMP, CDP, LIP, LIVP, TROPI #### [place] [id number] Neonatal Intensive Care Unit Nurse: Kris Pardo MD Potassium [Moles/Vol] 4.3 mmol/L Normal 3.7-5.[address] [facility] Comment on above: Performed By: #### BMP, CDP, LIP, LIVP, TROPI #### [place] [address] Neonatal Intensive Care Unit Nurse: Kris Pardo MD Sodium [Moles/Vol] 139 mmol/L Normal 135-[address] [facility] Comment on above: Performed By: #### BMP, CDP, LIP, LIVP, TROPI #### [place] [id number] Neonatal Intensive Care Unit Nurse: Kris Pardo MD Urea nitrogen [Mass/Vol] 13 mg/dL Normal 6-[address] [facility] Comment on above: Performed By: #### BMP, CDP, LIP, LIVP, TROPI #### [place] [id number] Neonatal Intensive Care Unit Nurse: Kris Pardo MD CBC with Diffon 10-25-2022 Abs. Basophil 0.10 k/uL Normal 0.0-0.[address] [facility] Comment on above: Performed By: #### BMP, CDP, LIP, LIVP, TROPI #### [place] [address] Neonatal Intensive Care Unit Nurse: Kris Pardo MD Abs.Neutrophil (Seg) 7.10 k/uL Normal 1.8-7.[address] [facility] Comment on above: Performed By: #### BMP, CDP, LIP, LIVP, TROPI #### [place] [address] Neonatal Intensive Care Unit Nurse: Kris Pardo MD Basophils/100 WBC (Bld) 1 % Normal 0-[address] [facility] Comment on above: Performed By: #### BMP, CDP, LIP, LIVP, TROPI #### [place] [address] Neonatal Intensive Care Unit Nurse: Kris Pardo MD Eosinophils (Bld) [#/Vol] 0.50 10*3/uL High 0.0-0.[address] [facility] Comment on above: Performed By: #### BMP, CDP, LIP, LIVP, TROPI #### [place] [address] Neonatal Intensive Care Unit Nurse: Kris Pardo MD Eosinophils/100 WBC (Bld) 5 % High 1-[address] [facility] Comment on above: Performed By: #### BMP, CDP, LIP, LIVP, TROPI #### [place] [address] Neonatal Intensive Care Unit Nurse: Kris Pardo MD Erythrocyte distribution width (RBC) [Ratio] 12.9 % Normal 12.5-15.[address] [facility] Comment on above: Performed By: #### BMP, CDP, LIP, LIVP, TROPI #### [place] [address] Neonatal Intensive Care Unit Nurse: Kris Pardo MD Hematocrit (Bld) [Volume fraction] 36.9 % Normal 36-[address] [facility] Comment on above: Performed By: #### BMP, CDP, LIP, LIVP, TROPI #### [place] [address] Neonatal Intensive Care Unit Nurse: Kris Pardo MD Hemoglobin (Bld) [Mass/Vol] 12.5 g/dL Normal 12.0-16.[address] [facility] Comment on above: Performed By: #### BMP, CDP, LIP, LIVP, TROPI #### [place] [address] Neonatal Intensive Care Unit Nurse: Kris Pardo MD Lymphocytes (Bld) [#/Vol] 1.20 10*3/uL Normal 1.0-4.[address] [facility] Comment on above: Performed By: #### BMP, CDP, LIP, LIVP, TROPI #### [place] [address] Neonatal Intensive Care Unit Nurse: Kris Pardo MD Lymphocytes/100 WBC (Bld) 13 % Low 24-[address] [facility] Comment on above: Performed By: #### BMP, CDP, LIP, LIVP, TROPI #### [place] [address] Neonatal Intensive Care Unit Nurse: Kris Pardo MD MCH (RBC) [Entitic mass] 29.9 pg Normal 26-[address] [facility] Comment on above: Performed By: #### BMP, CDP, LIP, LIVP, TROPI #### [place] [address] Neonatal Intensive Care Unit Nurse: Kris Pardo MD MCHC (RBC) [Mass/Vol] 33.9 g/dL Normal 31-[address] [facility] Comment on above: Performed By: #### BMP, CDP, LIP, LIVP, TROPI #### [place] [address] Neonatal Intensive Care Unit Nurse: Kris Pardo MD MCV (RBC) [Entitic vol] 88.0 fL Normal 80-[address] [facility] Comment on above: Performed By: #### BMP, CDP, LIP, LIVP, TROPI #### [place] [address] Neonatal Intensive Care Unit Nurse: Kris Pardo MD Monocytes (Bld) [#/Vol] 0.60 10*3/uL Normal 0.1-1.[address] [facility] Comment on above: Performed By: #### BMP, CDP, LIP, LIVP, TROPI #### [place] [address] Neonatal Intensive Care Unit Nurse: Kris Pardo MD Monocytes/100 WBC (Bld) 6 % Normal 2-[address] [facility] Comment on above: Performed By: #### BMP, CDP, LIP, LIVP, TROPI #### [place] [address] Neonatal Intensive Care Unit Nurse: Kris Pardo MD Neutrophil (Seg) 75 % High 36-66 [facility] Comment on above: Performed By: #### BMP, CDP, LIP, LIVP, TROPI #### [place] [address] Neonatal Intensive Care Unit Nurse: Kris Pardo MD Platelet mean volume (Bld) [Entitic vol] 7.6 fL Normal 6.0-12.[address] [facility] Comment on above: Performed By: #### BMP, CDP, LIP, LIVP, TROPI #### [place] [address] Neonatal Intensive Care Unit Nurse: Kris Pardo MD Platelets (Bld) [#/Vol] 287 10*3/uL Normal 140-[address] [facility] Comment on above: Performed By: #### BMP, CDP, LIP, LIVP, TROPI #### [place] [address] Neonatal Intensive Care Unit Nurse: Kris Pardo MD RBC (Bld) [#/Vol] 4.20 10*6/uL Normal 4.0-5.[address] [facility] Comment on above: Performed By: #### BMP, CDP, LIP, LIVP, TROPI #### [place] [address] Neonatal Intensive Care Unit Nurse: Kris Pardo MD WBC (Bld) [#/Vol] 9.4 10*3/uL Normal 3.5-11.[address] [facility] Comment on above: Performed By: #### BMP, CDP, LIP, LIVP, TROPI #### [place] [address] Neonatal Intensive Care Unit Nurse: Kris Pardo MD CT ABDOMEN PELVIS W [...] Saeed Ortega MD 10/25/[address] Final result Normal [facility] Lipaseon 10-25-2022 Lipase [Catalytic activity/Vol] 26 U/L Normal 13-[address] [facility] Comment on above: Performed By: #### BMP, CDP, LIP, LIVP, TROPI #### [place] [id number] [place] [address] Neonatal Intensive Care Unit Nurse: Kris Pardo MD Liver Profileon 10-25-2022 Albumin [Mass/Vol] 4.2 g/dL Normal 3.5-5.[address] [facility] Comment on above: Performed By: #### BMP, CDP, LIP, LIVP, TROPI #### [facility] [address] [place] [address] Neonatal Intensive Care Unit Nurse: Kris Pardo MD Albumin/Glob Ratio 1.7 Normal 1.0-2.[address] [facility] Comment on above: Performed By: #### BMP, CDP, LIP, LIVP, TROPI #### [place] [address] Neonatal Intensive Care Unit Nurse: Kris Pardo MD Alkaline Phos 67 U/L Normal 35-[address] [facility] Comment on above: Performed By: #### BMP, CDP, LIP, LIVP, TROPI #### [place] [address] Neonatal Intensive Care Unit Nurse: Kris Pardo MD ALT [Catalytic activity/Vol] 23 U/L Normal 5-[address] [facility] Comment on above: Performed By: #### BMP, CDP, LIP, LIVP, TROPI #### [place] [address] Neonatal Intensive Care Unit Nurse: Kris Pardo MD AST [Catalytic activity/Vol] 21 U/L Normal <[address] [facility] Comment on above: Performed By: #### BMP, CDP, LIP, LIVP, TROPI #### [place] [address] Neonatal Intensive Care Unit Nurse: Kris Pardo MD Bilirubin [Mass/Vol] 0.3 mg/dL Normal 0.3-1.[address] [facility] Comment on above: Performed By: #### BMP, CDP, LIP, LIVP, TROPI #### [place] [address] Neonatal Intensive Care Unit Nurse: Kris Pardo MD Bilirubin, Indirect 0.2 mg/dL Normal 0.0-1.[address] [facility] Comment on above: Performed By: #### BMP, CDP, LIP, LIVP, TROPI #### [place] [id number] Neonatal Intensive Care Unit Nurse: Kris Pardo MD Bilirubin.indire ct [Mass/Vol] 0.1 mg/dL Normal <0.[address] [facility] Comment on above: Performed By: #### BMP, CDP, LIP, LIVP, TROPI #### [place] [id number] Neonatal Intensive Care Unit Nurse: Kris Pardo MD Protein [Mass/Vol] 6.7 g/dL Normal 6.4-8.[address] [facility] Comment on above: Performed By: #### BMP, CDP, LIP, LIVP, TROPI #### [place] [address] Neonatal Intensive Care Unit Nurse: Kris Pardo MD Troponinon 10-25-2022 Troponin, High Sens 7 ng/L Normal 0-[address] [facility] Comment on above: Result Comment: High Sensitivity Troponi n values cannot be compared with other Troponin methodologies. Performed By: #### B MP, CDP, LIP, LIVP, TROPI #### [place] [address] Neonatal Intensive Care Unit Nurse: Kris Pardo MD UA w/Reflex Cultureon 2022 Bilirubin, SemiQt,Ur Negative Normal NEG [facility] Comment on above: Performed By: #### TYS #### [place] [address] Neonatal Intensive Care Unit Nurse: Kris Pardo MD Blood, Urine MODERATE Abnormal NEG [facility] Comment on above: Performed By: #### TYS #### [place] [address] Neonatal Intensive Care Unit Nurse: Kris Pardo MD Clarity (U) Clear Normal CLEAR [facility] Comment on above: Performed By: #### TYS #### [place] [id number] Neonatal Intensive Care Unit Nurse: Kris Pardo MD Color (U) Yellow Normal YEL [facility] Comment on above: Performed By: #### TYS #### [address] [id number] Neonatal Intensive Care Unit Nurse: Kris Pardo MD Glucose Ql (U) Negative Normal NEG [facility] Comment on above: Performed By: #### TYS #### [place] [id number] Neonatal Intensive Care Unit Nurse: Kris Pardo MD Ketones Ql (U) Negative Normal NEG [facility] Comment on above: Performed By: #### TYS #### [place] [address] Neonatal Intensive Care Unit Nurse: Kris Pardo MD Leukocyte esterase Test strip Ql (U) Negative Normal NEG [facility] Comment on above: Performed By: #### TYS #### [place] [address] Neonatal Intensive Care Unit Nurse: Kris Pardo MD Nitrite,Ur Negative Normal NEG [facility] Comment on above: Performed By: #### TYS #### [place] [address] Neonatal Intensive Care Unit Nurse: Kris Pardo MD PH,Ur 7.0 Normal 5.0-8.[address] [facility] Comment on above: Performed By: #### TYS #### [place] [id number] Neonatal Intensive Care Unit Nurse: Kris Pardo MD Protein Ql (U) Negative Normal NEG [facility] Comment on above: Performed By: #### TYS #### [place] [address] Neonatal Intensive Care Unit Nurse: Kris Pardo MD Spec. Vickery,Ur 1.006 Normal 1.005-1.030 [facility] Comment on above: Performed By: #### TYS #### [place] [address] Neonatal Intensive Care Unit Nurse: Kris Pardo MD Urobilinogen,Ur Normal Normal 0.0-1.[address] [facility] Comment on above: Performed By: #### TYS #### [place] [address] Neonatal Intensive Care Unit Nurse: Kris Pardo MD Urinalysis,Microon 3 Bacteria FEW Abnormal NONE [facility] Comment on above: Performed By: #### TYS #### [place] [address] Neonatal Intensive Care Unit Nurse: Kris Pardo MD Epithelial cells LM Ql (Urine sed) 0 TO 2 Normal 0-[address] [facility] Comment on above: Performed By: #### TYS #### [place] [address] Neonatal Intensive Care Unit Nurse: Kris Pardo MD Other Observations Utilizing a urinalysis as the only screening method to exclude a potential Abnormal NREQ [facility] Comment on above: Result Comment: uropathogen can be unrel iable in many patient populations. Rapid screening tests are less sensitive than culture and if UTI is a clinical possibility, culture should be considered despite a negative urinalysis. Performed By: #### T YS #### [place] [address] Neonatal Intensive Care Unit Nurse: Kris Pardo MD Urine RBC's 20 TO 50 Normal 0-[address] [facility] Comment on above: Performed By: #### TYS #### [place] [address] Neonatal Intensive Care Unit Nurse: Kris Pardo MD Urine WBC's 0 TO 2 Normal 0-[address] [facility] Comment on above: Performed By: #### TYS #### [place] [address] Neonatal Intensive Care Unit Nurse: Kris Pardo MD Hgb/Hcton 10-21-2022 Hematocrit (Bld) [Volume fraction] 38.0 % Normal 36-[address] [facility] Comment on above: Performed By: #### HH #### [place] [address] Neonatal Intensive Care Unit Nurse: Kris Pardo MD Hemoglobin (Bld) [Mass/Vol] 12.6 g/dL Normal 12.0-16.[address] [facility] Comment on above: Performed By: #### HH #### [place] [address] Neonatal Intensive Care Unit Nurse: Kris Pardo MD OPERATIVE REPORTon OPERATIVE REPORT [address] [address] OPERATIVE REPORT PATIENT NAME: CHERYL HECTOR : 1965 MED REC NO: [id number] ROOM: ACCOUNT NO: [id number] ADMIT DATE: 10/21/2022 PROVIDER: Pete Rod DO [...] Robotic-assisted laparoscopic hysterectomy with bilateral salpingectomy, internal Kingston-Maiden culdoplasty with uterosacral suspension and enterocele repair, [...] bladder was drained with Jarvis catheter. A [employer] uterine manipulator was placed without incident. The [...] the right upper quadrant as an accessory home care assistant port. The robot was docked with arms [...] The vaginal cuff was then closed with bbysty-tj-fzdba mucosal-mucosal Vicryl sutures incorporating the cuff angles [...] fascial closure (more content not included)... Normal [facility] Surgical Pathologyon 023 Surgical Pathology (NOTE) Path Number: [id number] -- Diagnosis -- A. UTERUS, CERVIX, AND BILATERAL FALLOPIAN TUBES: - Inactive endometrium. - Focal adenomyosis. - Numerous leiomyomata. - Unremarkable cervix. - Bilateral fallopian tubes with benign paratubal cysts. B. VAGINAL MUCOSA: Benign squamous mucosa. nUa Viera M.D. Electronically Signed Out kmg210/24/2022 Clinical [...] lumen lined by a meza-pink, soft mucosa. Virologist sections are submitted in [facility] as follows: 1 anterior cervix 2 posterior cervix 3 endomyometrial polyps 4 anterior endomyometrium 5 posterior endomyometrium 6-7 intramural and subserosal nodules, loan servicing representative 8-9 one entire fallopian tube 10-12 one entire fallopian tube. B. CHERYL HECTOR VAGINAL MUCOSA Received in formalin are three fragments of meza-calvillo, wrinkled and ragged vaginal mucosa ranging from 1.6 to 7.5 cm. Sectioning reveals meza-pink, rubbery cut surfaces with no obvious masses or lesions identified. Virologist sections 1c. tm Microscopic Description A, B. Microscopic examination performed. Processing Lab: [address] [address] Interpretation Performed at [address] [address] SURGICAL PATHOLOGY CONSULTATION Patient Name: CHERYL HECTOR [facility] Rec: [id number] [facility] CONSULTING PATHOLOGISTS [facility] ANATOMIC PATHOLOGY [facility] [place], [place] [address] [facility] Type + Screenon 10-21-2022 Type + Screen Sample Expiration 10/24/2022,2359 Arm Band Number [id number] ABO/Rh(D) O POSITIVE Antibody Screen NEGATIVE [facility] Comment on above: Performed By: #### TYS #### [address] [address] Neonatal Intensive Care Unit Nurse: Kris Pardo MD Type + Screenon 10-14-2022 Type + Screen Sample Expiration 10/24/2022,2359 Arm Band Number [id number] ABO/Rh(D) O POSITIVE Antibody Screen NEGATIVE Normal [facility] Comment on above: Performed By: #### TYS #### [address] [address] Neonatal Intensive Care Unit Nurse: Kris Pardo MD Office Visit (Cardiology)on 09-12-2022 [...] try to retrieve her recent labs from [place] 4. The patient was advised to lose [...] Signs Recorded: 12Sep2022 12:04PM Heart Rate70, Apical Lfbtlgxy159, LUE, Sitting Jqodpmvpv99, LUE, Sitting Height5 ft 4 in Vsmhmi118 lb BMI Eooronfgtg58.67 kg/m2 BSA Calculated1.81 Tobacco Useb) No PHQ-2 #1. Over the last 2 weeks have you felt down, depressed or hopeless? (If yes, answer PHQ-9 below)No PHQ-2 #2. Over the last 2 weeks have you felt little interest or pleasure in doin (more content not included)... Normal [facility] Tobacco Screening.on 023 Adult depression screening assessment No [facility] [address] DO Work Phone: Fall risk assessment a) No falls within the last year [facility] [address] DO Work Phone: Tobacco use status CPHS b) No [facility] DO Work Phone: Ambulatory Visit Summaryon [...] Hypotension Kidney stone Plantar fasciitis Normal [facility] General Surgery Office/Clini c Noteon 06-05-2022 [...] SARS-CoV-2 (COVID-19) mRNA-1273 vaccine 04/21/2020 Recorded Normal [facility] Comment on above: Result Comment: Electronically Signed By : BRENDA SOTO, Cristo Arias\.br\Date and Time Signed: 06/05/22 16:56 EDT Pathology Noteon 06-03-2022 Pathology Note [id number]#1.00CD:127 [facility] Outside Colonoscopyon 2022 Outside Colonoscopy [id number]#1.00CD:127 [facility] Reminderson 05-30-2022 Reminders - From: Nedra Juares LPN To: GSN - Clinical; Sent: 05/30/2022 09:37:12 EST Show up: 05/01/2032 07:00:00 EST Subject: colonoscopy recall Due Date/Time: 05/29/2032 07:00:00 EST Reminder/Recall Patient is due for screening colonoscopy 05/29/2032. [facility] Facesheeton 05-07-2022 Facesheet [id number]#1.00CD:127 [facility] Consent for Procedure/Surger yon 05-06-2022 Consent for Procedure/Surger y [id number]#1.00CD:127 [facility] Ambulatory Visit Summaryon 0 05-03-2022 Ambulatory [...] Cholecystectomy Hypotension Kidney stone Plantar fasciitis Normal [facility] Physician Referralon 023 Physician Referral [id number]:127 Normal [facility] MM screening mammo BI w/CADo n 01-24-2022 MM screening mammo BI w/CAD [facility] Main [place] [address] [place], [place] [id number] Mammography Report Signed Patient: Cheryl Hector MR#: [id number] : 1965 Acct:[id number] Age/Sex: 56 / F ADM Date: 01/24/22 Loc: [place] Room: Type: [facility] Attending Dr: Jose Dangelo MD Copies [...] Kunal Osorio M.D.01/24/2022 4:44 PM Dictation Location: [facility] Transcribed By: [facility] 01/24/22 0794 Dictated By: Kunal Osorio II, MD 01/24/22 1640 Signed By: 01/24/22 6684 [facility] Tobacco Screening.on 022 Adult depression screening assessment No -[facility] [address] [address] DO Work Phone: Tobacco use status CPHS b) No MP-[facility] [place] [address] DO Work Phone: CNOVon 09-10-2019 CNOV Office Visit (UROLMN ) CHERYL HECTOR ([id number]) 1965 F Date Time Provider Department 09/10/19 9:00 AM WILMER LOVELACE During your visit today, we recorded the following information about you: Wilmer Lovelace MD 11/05/2019 11:22 AM Addendum [facility] [...] before COVID 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 Womack in [place] Recurrent microscopic hematuria Cystoscopy and renal US [...] breath CARDIOVASCULAR: Negative for chest pain or [place] GI: SEE HPI GENITOURINARY: SEE HPI ENDOCRINE:No [...] work-up including cysto and ANA performed by [facility] urologist in [id number] - Will send off UA with microscopy [...] Sy MD, MD 09/10/2019 9:31 AM Signed [facility] Female Pelvic Medicine [facility] [place] Recurrent UTI Step Prevention Program: Takes 6 [...] Recurrent UTI [N39.0] Order(s):UA DIP, URINE (POC) [[id number]] Order #: [id number]. #:[id number] URINALYSIS WITH MICROSCOPIC [SQUAWMIC] Order #: [id number] FUTURE conjugated estrogens (PREMARIN) vaginal creamUse 0.5 g vaginally once daily.Disp: 42.5 gRfl: 3 URINALYSIS WITH MICROSCOPIC [SQUAWMIC] Order #: [id number]. #:[id number] Prescriptions as of 09/10/2019 Sig: ESTRADIOL 10 MCG VAGINAL TABL* Use 1 tablet vaginally. PREMARIN 0.625 MG/GRAM VAGINA* Use 0.5 g vaginally once joaquina* Problem List As Of Date: 09/10/2019 (None) Other instructions from your clinician: [facility] [place] Recurrent UTI Step Prevention Program: Takes 6 [...] by WILMER LOVELACE MD on 09/10/19 Normal [facility] PROGRESSon 09-10-2019 PROGRESS HNO ID: [id number] Author: Wilmer Lovelace Service: ? Author Type: Physician Type: Progress Notes Filed: 11/05/2019 11:22 AM Note Text: [facility] [...] before COVID 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 Womack in [place] Recurrent microscopic hematuria Cystoscopy and renal US [...] breath CARDIOVASCULAR: Negative for chest pain or TN GI: SEE HPI GENITOURINARY: SEE HPI ENDOCRINE:No [...] work-up including cysto and ANA performed by [facility] urologist in [phone] - Will send off UA with microscopy [...] Medicine and Reconstructive Surgery Electronically signed Normal [facility] Urinalysis with Microscopico n 09-10-2019 Bilirubin, Urine Negative Normal [facility] Comment on above: Performed By: #### UAWMIC #### [place] [phone] Clarity (U) Clear Normal Clear [facility] Comment on above: Performed By: #### UAWMIC #### [place] [phone] Color (U) Colorless Critically abnormal Yellow [facility] Comment on above: Performed By: #### UAWMIC #### [place] [phone] Comments SEE COMMENT Normal [facility] Comment on above: Result Comment: N/A Performed By: #### U AWMIC #### [place] [id number] [place] [phone] Glucose Ql (U) Negative Normal Negative [facility] Comment on above: Performed By: #### UAWMIC #### [place] [phone] Hemoglobin/Blood ,Ur 1+ Critically abnormal Negative [facility] Comment on above: Performed By: #### UAWMIC #### [place] [phone] Ketones Ql (U) Negative Normal Negative [facility] Comment on above: Performed By: #### UAWMIC #### [facility] [address] [place] [address] Leukest Negative Normal Negative [facility] Comment on above: Performed By: #### UAWMIC #### [place] [address] [place], [place] [address] Nitrite Ql (U) Negative Normal Negative [facility] Comment on above: Performed By: #### UAWMIC #### [place] [address] [place] [address] pH (Bld) 6.0 Normal 5.0-8.0 [facility] Comment on above: Performed By: #### UAWMIC #### [place] [address] Protein (U) [Mass/Vol] Negative Normal Negative [facility] Comment on above: Performed By: #### UAWMIC #### [place] [address] RBC (U) [#/Vol] 0-3 Normal 0-3 [facility] Comment on above: Performed By: #### UAWMIC #### [place] [id number] Specific [place], Ur 1.006 Normal 1.005-1.030 [facility] Comment on above: Performed By: #### UAWMIC #### [place] [address] [place] [phone] Urine Noman Comment SEE COMMENT Normal [facility] Comment on above: Result Comment: N/A Performed By: #### U AWMIC #### [place] [address] [place], [place] [address] Urobilinogen Qn (U) Negative Normal Negative [facility] Comment on above: Performed By: #### UAWMIC #### [facility] [employer] [address] [place], [place] [address] WBC (Bld) [#/Vol] 0-5 Normal 0-5 [facility] Comment on above: Performed By: #### UAWMIC #### [facility] [employer] [address] [place], [place] [address] Vital Signs Date Time Vital Sign Value Performing Clinician Facility 09-12-2022 12:04-0400 Body height 162.56 cm Janna E Mast Work Phone: [facility] 600 DO Work Phone: 09-12-2022 12:04-0400 Body mass index (BMI) [Ratio] 28.67 kg/m2 Janna E Mast Work Phone: [facility] 600 DO Work Phone: 09-12-2022 12:04-0400 Body surface area Derived from formula 1.81 m2 Janna E Mast Work Phone: [facility] 600 DO Work Phone: 09-12-2022 12:04-0400 Body weight 75.75 kg Janna E Mast Work Phone: [facility] 600 DO Work Phone: 09-12-2022 12:04-0400 Diastolic blood pressure 70 mm[Hg] Janna E Mast Work Phone: [facility] 600 DO Work Phone: 09-12-2022 12:04-0400 Heart rate 70 /min Janna E Mast Work Phone: [facility] 600 DO Work Phone: 09-12-2022 12:04-0400 Systolic blood pressure 104 mm[Hg] Janna E Mast Work Phone: [facility] 600 DO Work Phone: 05-03-2022 15:33-0500 Blood Pressure Location Cristo CROCKER [facility] [place] 05-03-2022 15:33-0500 Diastolic blood pressure 96 mm[Hg] Cristo NILL [facility] [place] 05-03-2022 15:33-0500 Heart rate 70 /min Cristo NILL [facility] [place] 05-03-2022 15:33-0500 Respiratory rate 16 /min Cristo ELLISONL [facility] [place] 05-03-2022 15:33-0500 Systolic blood pressure 134 mm[Hg] Cristo NILL [facility] [place] 05-22-2021 16:14-0500 Diastolic blood pressure 85 mm[Hg] Janna E Mast Work Phone: [facility] 250 DO Work Phone: 05-22-2021 16:14-0500 Systolic blood pressure 122 mm[Hg] Janna E Mast Work Phone: [facility] 250 DO Work Phone: 05-22-2021 15:57-0500 Body height 162.56 cm Janna E Mast Work Phone: [facility] 250 DO Work Phone: 05-22-2021 15:57-0500 Body mass index (BMI) [Ratio] 28.32 kg/m2 Janna E Mast Work Phone: [facility] 250 DO Work Phone: 05-22-2021 15:57-0500 Body surface area Derived from formula 1.8 m2 Janna E Mast Work Phone: [facility] 250 DO Work Phone: 05-22-2021 15:57-0500 Body weight 74.84 kg Janna E Mast Work Phone: [facility] 250 DO Work Phone: 05-22-2021 15:57-0500 Diastolic blood pressure 100 mm[Hg] Janna E Mast Work Phone: [facility] 250 DO Work Phone: 05-22-2021 15:57-0500 Heart rate 80 /min Janna E Mast Work Phone: [facility] 250 DO Work Phone: 05-22-2021 15:57-0500 Systolic blood pressure 140 mm[Hg] Janna E Mast Work Phone: [facility] 250 DO Work Phone: 05-16-2021 10:56-0500 102.2 1 Janna E Mast Work Phone: [facility] 250 DO Work Phone: Comment on above: FSLDL Encounters Encounter Date Encounter Type Care Provider Facility Start: 10-25-2022 End: 10-25-2022 Emergency department patient visit FAIZAN Us~[id number] [facility] Start: 10-21-2022 End: 10-21-2022 ambulatory PETE ROD [facility] Start: 10-14-2022 End: 10-15-2022 ambulatory SERA LAMBERT [facility] Start: 09-12-[address] Vamsi Serrano Facility: Start: 09-12-2022 Patient encounter procedure Janna E Mast Work Phone: [facility] 600 DO Work Phone: Start: 06-05-2022 End: 06-06-2022 ambulatory Cristo CROCKER Facility: [facility] Start: 06-05-2022 End: 06-05-2022 Patient encounter procedure Cristo CROCKER General [facility] [place] Start: 06-03-2022 Telephone encounter Jannaranda Chaves t Work Phone: [facility] 600 DO Work Phone: Start: 05-29-2022 End: 05-30-[address] CRISTO CROCKER . Facility: Start: 05-03-2022 End: 05-04-2022 ambulatory Sera Lambert Facility:[facility] Start: 05-03-2022 End: 05-03-2022 Patient encounter procedure Cristo CROCKER General Surgery [facility] Start: 04-25-2022 ambulatory Cristo CROCKER Facility :[facility] Start: 01-24-2022 End: 01-24-2022 ambulatory Sera Lambert Facility: Start: 05-22-2021 Office outpatient vi sit 15 minutes Janna E Mast Work Phone: [employer] 250 DO Work Phone: Start: 07-02-2017 Ambulatory VAMSI SERRANO Faci lity:[id number] Patient encounter status Janna E Mast Work Phone: [facility] 600 DO Work Phone: Procedures Date Procedure [...] Vamsi Serrano, Status: Pen, Time: 10:10 AM [facility] 600 DO Work Phone: Start: 10-08-2022 FUV, Provider: Vamsi Serrano, Status: Pen, Time: 2:00 PM FUV, Provider: Vamsi Serrano, Status: Pen, Time: 2:00 PM [facility] 600 DO Work Phone: Start: 06-04-2022 FUV, Provider: Vamsi Serrano, Status: Pen, Time: 3:50 PM FUV, Provider: Vamsi Serrano, Status: Pen, Time: 3:50 PM [employer] [facility] 250 DO Work Phone: Immunizations Immunization Date Immunization Notes Care Provider Fa pilar 01-23-2022 influenza, seasonal, injectable Janna E Mast Work Phone: [facility] 600 DO Work Phone: 01-22-2022 influenza virus vacc ine, unspecified formulation Cristo NILL [facility] [place] 03-19-2021 Moderna COVID-19 Vac cine 100 MCG/0.5ML Intramuscular Suspension Janna E Mast Work Phone: [facility] [place] 05-19-2020 Moderna COVID-19 Vac cine 100 MCG/0.5ML Intramuscular Suspension Janna E Mast Work Phone: [facility] [place] 04-21-2020 Moderna COVID-19 Vac cine 100 MCG/0.5ML Intramuscular Suspension Janna E Mast Work Phone: [facility] 01-18-2020 influenza virus vacc ine, unspecified formulation Janna E Mast Work Phone: [employer] 250 DO Work Phone: 12-23-2019 influenza virus vacc ine, unspecified formulation Janna E Mast Work Phone: [employer] [facility] 250 DO Work Phone: 01-06-2018 influenza virus vacc ine, unspecified formulation Janna E Mast Work Phone: [employer] [facility] 250 DO Work Phone: 12-22-2016 influenza virus vacc ine, unspecified formulation Janna E Mast Work Phone: [employer] [facility] 250 DO Work Phone: 01-21-2002 hepatitis B vaccine, adult dosage Janna E Mast Work Phone: [employer] [facility] 250 DO Work Phone: Payers Date Payer Category Payer Self-pay 1965 Unknown [id number] 1965 Unknown [id number] 1965 Unknown [id number] 1965 Unknown [id number] 1965 Unknown [id number] 1963 Unknown [id number] 1965 Unknown [id number] 1963 Unknown [id number] 1965 Unknown [id number] 1959 Unknown [id number] Unknown [facility] Unknown [id number] Social History Date Type Detail Facility Social alcohol use Social alcohol use [place] [address] DO Work Phone: Start: 05-03-2022 Tobacco smoking status Never s moked tobacco (finding) [facility] Tobacco smoking status Never Gener [facility] Sex Assigned At Female [facility] [place] [facility] Functional Status Date Assessment Result Facility 05-03-2022 Functional Status N/A [facility] Clinical Note 05-29-2022 Note Date [...] good condition. CC: Patient's family physician [facility] Clinical Note 05-03-2022 Note Date & Type [...] (12/29/2014), Cystourethroscopy with (more content not included)... [facility] Comment on above: Result Comment: Elec tronically Signed By: BRENDA SOTO, Cristo Dueñas\Date and Time Signed: 05/03/22 16:43 EST Evaluation + Plan note Note Date & Type Note Facility Evaluation + Plan note No data available for this section [facility] [place] History of Present illness Narrative Note Date [...] exercise.5. Reviewed with her her recent lab -[facility] 250 DO Work Phone: History of Present [...] try to retrieve her recent labs from [place]4. The patient was advised to lose weight and exercise.5. I reviewed with patient preoperative cardiac risk for her upcoming hysterectomy. I believe her operative risk is acceptable and she can proceed she was given permission to hold aspirin for 7 days prior to surgery [facility] 600 DO Work Phone: Hospital Discharge instructions Note Date & Type Note Facility Hospital Discharge instructions No data available for this section General [facility] [place] Progress note Note Date & Type Note Facility Progress note No data available for this section General [facility] [place] Summary Purpose Family History No Family History [...] section and content) DATE CREATED AUTHOR 09/11/2017 [facility] DATE CREATED AUTHOR AUTHOR'S ORGANIZ ATION 04/15/2020 [facility] DATE CREATED AUTHOR AUTHOR'S ORGANIZ ATION 02/06/2022 [facility] DATE CREATED AUTHOR AUTHOR'S ORGANIZ ATION 06/03/2022 [facility] [place] [facility] DATE CREATED AUTHOR AUTHOR'S ORGANIZ ATION 06/21/2022 [facility] DATE CREATED AUTHOR AUTHOR'S ORGANIZ ATION 09/13/2022 [facility] DATE CREATED AUTHOR AUTHOR'S ORGANIZ ATION 09/13/2022 [employer] DATE CREATED AUTHOR AUTHOR'S ORGANIZ ATION 11/08/2022 [facility] Patient Care team informatio n (unrecognized section and content) Personnel Name: Sera Lambert MD Address: Address: [address] [place] [address] Personnel Name: Sera Lambert MD Address: Address: [address] [place] [address] FOR RECORDS PERTAINING TO PATIENTS WHO ARE [...] BE BASED ON THE PRIMARY CLINICAL RECORDS. [facility] [employer] provides no warranty or guarantee of the accuracy or completeness of information in this document.
[2023-05-05 14:11] LABS: ACTH, Plasma 12.1 pg/mL (7.2-63.3)
[2023-05-05 16:11] LABS: Cortisol - AM 5.9 ug/dL (6.2-19.4)
[2023-05-09 07:10] LABS: DHEA, Serum 182 ng/dL (21-402)
== END 2023-05-03 08:15 | disposition home or self-care (01) ==
LOC: LAB 08:17
PROVIDERS: PCP Family Medicine; Visit Provider Family Medicine
DX: R53.83 Other fatigue (principal)
CPT/HCPCS: 36415; 82024; 82533; 82626

== ENCOUNTER 2023-05-14 07:58 | Outpatient (OUT) | payer OTHER, SELFPAY ==
--- OUTSIDE RECORDS SUMMARY | 2023-05-14 08:01 | XMS_ITS | CCD ---
Author Name Unknown Address [address] [facility] [address] [place] [address] Organization [facility] Care Team Providers Care Youth Teacher Name Role Phone VAMSI SERRANO Unavailable Unavailable MASTJANNA Unavailable Unavailable Mast, Janna E Unavailable Unavailable Unavailable Srea Lambert Primary Care Unavailable Jose Dangelo Attending Unavailable Jose Dangelo Admitting Unavailable Sera Lambert Primary Care Physician NILL ., DR LEMONS Admitting Unavailable NILL ., DR LEMONS Attending Unavailable HOY ., DR ZAMORA Primary Care Unavailable NILL ., DR LEMONS Consulting Unavailable SPENCER RAY Consulting Unavailable FAIZAN WILD Consulting Unavailable Cristo CROCKER Attending Unavailable Sera Lambert Referring Unavailable Sera Lambert Referring Unavailable SCOTLCristo Attending Unavailable SCOTLCristo Attending Unavailable Cristo CROCKER Attending Unavailable Chaseoulsven, Dr. Noel Referring Unavaila ble Trabsusana, Dr. Noel Attending Unavaila ble Catherine, Dr. Janna Marti Primary Care UnavailPETE Juan Admitting Unavailable PETE ROD Attending Unavailable SERA LAMBERT Primary Care Unavailable FAIZAN SNYDER [id number] AttendSERA Hamilton Primary Care Unavailable SERA LAMBERT Primary Care Unavailable EPTE ROD Referring Unavailable Allergies Allergy Classification Reported Allergen(s) Allergy Type Date of Onset Reaction(s) Facility (6 sources) Amoxicillin; Translations: [amoxicillin] Drug Allergy [facility] (disorder) [facility] [place] (3 sources) atorvastatin; Translations: [atorvastatin] Drug Allergy -[facility] [facility] 250 DO Work Phone: (2 sources) ezetimibe; Translations: [Zetia] [facility] Work Phone: (4 sources) Hmg-Coa Reductase Inhibitors (Statins); Translations: [Statins] Allergy to drug (finding) [facility] Repository (3 sources) oxyCODONE; Translations: [oxycodone] [facility] Work Phone: (3 sources) Pravastatin; Translations: [Pravastatin Sodium TABS] [facility] Work Phone: (1 source) Amoxicillin Drug Allergy 02-22-20 [facility] Repository (1 source) Aspirin Drug Allergy 02-22-20 [facility] Repository (2 sources) Codeine; Translations: [codeine] Drug Allergy 02-22-20 [facility] Repository (1 source) oxyCODONE Drug Allergy 02-22-20 [facility] Rep[facility] (3 sources) Acetaminophen / oxyCODONE; Translations: [acetaminophen-oxy codone] Drug Allergy Projectile vomiting (disorder) [facility] (3 sources) Aspirin / oxyCODONE; Translations: [aspirin-oxycodone ] Drug Allergy Projectile vomiting (disorder) [facility] (2 sources) Codeine; Translations: [codeine] Drug Allergy Edema (finding) [facility] (2 sources) HMG-CoA reductase inhibitor; Translations: [statins] Drug allergy Unknown (qualifier value) [facility] (4 sources) Latex; Translations: [latex] Allergy to substance 12-23-19 15 Redness, Itching [facility] (3 sources) NITROFURANTOIN, MACROCRYSTALS / Nitrofurantoin, Monohydrate; Translations: [nitrofurantoin] Drug Allergy Joint pain (finding), Cutaneous eruption (morphologic abnormality) [facility] (1 source) Acetaminophen / oxyCODONE Drug Allergy 05-13-19 23 [facility] Repository (1 source) Adhesive agent Drug allergy (disorder) 12-23-19 15 [facility] (1 source) Amoxicillin Drug Allergy 07-28-19 13 [facility] (1 source) black walnut pollen extract Drug Allergy 05-13-19 23 [facility] (1 source) Codeine Drug Allergy 07-28-19 13 [facility] (1 source) Nitrofurantoin Drug Allergy 12-23-19 15 [facility] (1 source) bandaids; Translations: [bandaids] Propensity to adverse reactions (disorder) [facility] Repository Medications Current Medications Medication [...] UNSPECIFIED] Onset: 3 Other aftercare (1 source) prison (current) use of aspirin; Translations: [SNF CURRENT USE OF ASPIRIN] Onset: 3 Episodic Other aftercare (1 source) Other detention (current) drug therapy; Translations: [OTH SNF CURRENT DRUG THERAPY] Onset: 3 Episodic Other [...] Anion gap [Moles/Vol] 10 mmol/L Normal 9-17 [facility] Comment on above: Performed By: #### BMP, CDP, LIP, LIVP, TROPI #### [place] [address] [employer] Rib[employer] Winder: Kris Pardo MD Calcium [Mass/Vol] 9.3 mg/dL Normal 8.6-10.4 [facility] Comment on above: Performed By: #### BMP, CDP, LIP, LIVP, TROPI #### [place] [address] [employer] Winder: Kris Pardo MD Chloride [Moles/Vol] 101 mmol/L Normal 98-107 [facility] Comment on above: Performed By: #### BMP, CDP, LIP, LIVP, TROPI #### [place] [id number] [employer] Winder: Kris Pardo MD CO2 [Moles/Vol] 28 mmol/L Normal 20-31 [facility] Comment on above: Performed By: #### BMP, CDP, LIP, LIVP, TROPI #### [place] [id number] [employer] Winder: Kris Pardo MD Creatinine [Mass/Vol] 0.6 mg/dL Normal 0.5-0.9 [facility] Comment on above: Performed By: #### BMP, CDP, LIP, LIVP, TROPI #### [place] [id number] [employer] Winder: Kris Pardo MD GFR/1.73 sq M.predicted among non-blacks MDRD (S/P/Bld) [Vol rate/Area] mL/min/{1.73_m2} Normal >60 [facility] Comment on above: Result Comment: These [...] B MP, CDP, LIP, LIVP, TROPI #### [place] [address] [employer] Winder: Kris Pardo MD Glucose [Mass/Vol] 102 mg/dL High 70-99 [facility] Comment on above: Performed By: #### BMP, CDP, LIP, LIVP, TROPI #### [place] [address] [employer] Winder: Kris Pardo MD Potassium [Moles/Vol] 4.3 mmol/L Normal 3.7-5.3 [facility] Comment on above: Performed By: #### BMP, CDP, LIP, LIVP, TROPI #### [place] [address] [employer] Winder: Kris Pardo MD Sodium [Moles/Vol] 139 mmol/L Normal 135-144 [facility] Comment on above: Performed By: #### BMP, CDP, LIP, LIVP, TROPI #### [place] [address] [employer] Winder: Kris Pardo MD Urea nitrogen [Mass/Vol] 13 mg/dL Normal 6-20 [facility] Comment on above: Performed By: #### BMP, CDP, LIP, LIVP, TROPI #### [place] [id number] [employer] Rib[employer] Winder: Kris Pardo MD CBC with Diffon 10-25-2022 Abs. Basophil 0.10 k/uL Normal 0.0-0.2 [facility] Comment on above: Performed By: #### BMP, CDP, LIP, LIVP, TROPI #### [place] [address] [employer] Winder: Kris Pardo MD Abs.Neutrophil (Seg) 7.10 k/uL Normal 1.8-7.7 [facility] Comment on above: Performed By: #### BMP, CDP, LIP, LIVP, TROPI #### [place] [address] [employer] Winder: Kris Pardo MD Basophils/100 WBC (Bld) 1 % Normal 0-2 [facility] Comment on above: Performed By: #### BMP, CDP, LIP, LIVP, TROPI #### [place] [address] [employer] Rib[employer] Winder: Kris Pardo MD Eosinophils (Bld) [#/Vol] 0.50 10*3/uL High 0.0-0.4 [facility] Comment on above: Performed By: #### BMP, CDP, LIP, LIVP, TROPI #### [place] [address] [employer] Rib[employer] Winder: Kris Pardo MD Eosinophils/100 WBC (Bld) 5 % High 1-4 [facility] Comment on above: Performed By: #### BMP, CDP, LIP, LIVP, TROPI #### [place] [address] [employer] Rib[employer] Winder: Kris Pardo MD Erythrocyte distribution width (RBC) [Ratio] 12.9 % Normal 12.5-15.4 [facility] Comment on above: Performed By: #### BMP, CDP, LIP, LIVP, TROPI #### [place] [id number] [employer] Winder: Kris Pardo MD Hematocrit (Bld) [Volume fraction] 36.9 % Normal 36-46 [facility] Comment on above: Performed By: #### BMP, CDP, LIP, LIVP, TROPI #### [place] [address] [employer] Rib[employer] Winder: Kris Pardo MD Hemoglobin (Bld) [Mass/Vol] 12.5 g/dL Normal 12.0-16.0 [facility] Comment on above: Performed By: #### BMP, CDP, LIP, LIVP, TROPI #### [place] [address] [employer] Rib[employer] Winder: Kris Pardo MD Lymphocytes (Bld) [#/Vol] 1.20 10*3/uL Normal 1.0-4.8 [facility] Comment on above: Performed By: #### BMP, CDP, LIP, LIVP, TROPI #### [place] [address] [employer] Rib[employer] Winder: Kris Pardo MD Lymphocytes/100 WBC (Bld) 13 % Low 24-44 [facility] Comment on above: Performed By: #### BMP, CDP, LIP, LIVP, TROPI #### [place] [address] [employer] Rib[employer] Winder: Kris Pardo MD MCH (RBC) [Entitic mass] 29.9 pg Normal 26-34 [facility] Comment on above: Performed By: #### BMP, CDP, LIP, LIVP, TROPI #### [place] [id number] [employer] Rib[employer] Winder: Kris Pardo MD MCHC (RBC) [Mass/Vol] 33.9 g/dL Normal 31-37 [facility] Comment on above: Performed By: #### BMP, CDP, LIP, LIVP, TROPI #### [facility] [address] [place], [place] [id number] [employer]writer Ribbon Winder: Kris Pardo MD MCV (RBC) [Entitic vol] 88.0 fL Normal 80-100 [facility] Comment on above: Performed By: #### BMP, CDP, LIP, LIVP, TROPI #### [place] [address] [employer] Ribbon Winder: Kris Pardo MD Monocytes (Bld) [#/Vol] 0.60 10*3/uL Normal 0.1-1.2 [facility] Comment on above: Performed By: #### BMP, CDP, LIP, LIVP, TROPI #### [place] [address] [employer] Rib[employer] Winder: Kris Pardo MD Monocytes/100 WBC (Bld) 6 % Normal 2-11 [facility] Comment on above: Performed By: #### BMP, CDP, LIP, LIVP, TROPI #### [place] [address] [employer] Ribbon Winder: Kris Pardo MD Neutrophil (Seg) 75 % High 36-66 [facility] Comment on above: Performed By: #### BMP, CDP, LIP, LIVP, TROPI #### [place] [address] [employer] Rib[employer] Winder: Kris Pardo MD Platelet mean volume (Bld) [Entitic vol] 7.6 fL Normal 6.0-12.0 [facility] Comment on above: Performed By: #### BMP, CDP, LIP, LIVP, TROPI #### [place] [address] [employer] Rib[employer] Winder: Kris Pardo MD Platelets (Bld) [#/Vol] 287 10*3/uL Normal 140-450 [facility] Comment on above: Performed By: #### BMP, CDP, LIP, LIVP, TROPI #### [place] [address] [employer] Rib[employer] Winder: Kris Pardo MD RBC (Bld) [#/Vol] 4.20 10*6/uL Normal 4.0-5.2 [facility] Comment on above: Performed By: #### BMP, CDP, LIP, LIVP, TROPI #### [place] [address] [employer] Ribbon Winder: Kris Pardo MD WBC (Bld) [#/Vol] 9.4 10*3/uL Normal 3.5-11.0 [facility] Comment on above: Performed By: #### BMP, CDP, LIP, LIVP, TROPI #### [place] [address] [employer] Ribbon Winder: Kris Pardo MD CT ABDOMEN PELVIS W [...] Saeed Ortega MD 10/25/22 Final result Normal [facility] Lipaseon 10-25-2022 Lipase [Catalytic activity/Vol] 26 U/L Normal 13-60 [facility] Comment on above: Performed By: #### BMP, CDP, LIP, LIVP, TROPI #### [address] [address] [employer] Ribbon Winder: Kris Pardo MD Liver Profileon 10-25-2022 Albumin [Mass/Vol] 4.2 g/dL Normal 3.5-5.2 [facility] Comment on above: Performed By: #### BMP, CDP, LIP, LIVP, TROPI #### [facility] [address] [place] [address] Typewriter Ribbon Winder: Kris Pardo MD Albumin/Glob Ratio 1.7 Normal 1.0-2.5 [facility] Comment on above: Performed By: #### BMP, CDP, LIP, LIVP, TROPI #### [address] [address] [employer] Rib[employer] Winder: Kris Pardo MD Alkaline Phos 67 U/L Normal 35-104 [facility] Comment on above: Performed By: #### BMP, CDP, LIP, LIVP, TROPI #### [place] [address] [employer] Rib[employer] Winder: Kris Pardo MD ALT [Catalytic activity/Vol] 23 U/L Normal 5-33 [facility] Comment on above: Performed By: #### BMP, CDP, LIP, LIVP, TROPI #### [place] [address] [employer] Rib[employer] Winder: Kris Pardo MD AST [Catalytic activity/Vol] 21 U/L Normal <32 [facility] Comment on above: Performed By: #### BMP, CDP, LIP, LIVP, TROPI #### [place] [address] [employer] Rib[employer] Winder: Kris Pardo MD Bilirubin [Mass/Vol] 0.3 mg/dL Normal 0.3-1.2 [facility] Comment on above: Performed By: #### BMP, CDP, LIP, LIVP, TROPI #### [place] [address] [employer] Rib[employer] Winder: Kris Pardo MD Bilirubin, Indirect 0.2 mg/dL Normal 0.0-1.0 [facility] Comment on above: Performed By: #### BMP, CDP, LIP, LIVP, TROPI #### [place] [id number] [employer]writer Ribbon Winder: Kris Pardo MD Bilirubin.indire ct [Mass/Vol] 0.1 mg/dL Normal <0.3 [facility] Comment on above: Performed By: #### BMP, CDP, LIP, LIVP, TROPI #### [address] [id number] [employer] Ribbon Winder: Kris Pardo MD Protein [Mass/Vol] 6.7 g/dL Normal 6.4-8.3 [facility] Comment on above: Performed By: #### BMP, CDP, LIP, LIVP, TROPI #### [place] [address] [employer] Rib[employer] Winder: Kris Pardo MD Troponinon 10-25-2022 Troponin, High Sens 7 ng/L Normal 0-14 [facility] Comment on above: Result Comment: High Sensitivity Troponi n values cannot be compared with other Troponin methodologies. Performed By: #### B MP, CDP, LIP, LIVP, TROPI #### [place] [address] [employer] Rib[employer] Winder: Kris Pardo MD UA w/Reflex Cultureon 2022 Bilirubin, SemiQt,Ur Negative Normal NEG [facility] Comment on above: Performed By: #### TYS #### [place] [address] [employer] Rib[employer] Winder: Kris Parod MD Blood, Urine MODERATE Abnormal NEG [facility] Comment on above: Performed By: #### TYS #### [place] [address] [employer] Ribbon Winder: Kris Pardo MD Clarity (U) Clear Normal CLEAR [facility] Comment on above: Performed By: #### TYS #### [place] [id number] [employer] Ribbon Winder: Kris Pardo MD Color (U) Yellow Normal YEL [facility] Comment on above: Performed By: #### TYS #### [place] [address] [employer] Rib[employer] Winder: Kris Pardo MD Glucose Ql (U) Negative Normal NEG [facility] Comment on above: Performed By: #### TYS #### [place] [address] [employer] Rib[employer] Winder: Kris Pardo MD Ketones Ql (U) Negative Normal NEG [facility] Comment on above: Performed By: #### TYS #### [place] [address] [employer] Rib[employer] Winder: Kris Pardo MD Leukocyte esterase Test strip Ql (U) Negative Normal NEG [facility] Comment on above: Performed By: #### TYS #### [place] [address] [employer] Rib[employer] Winder: Kris Pardo MD Nitrite,Ur Negative Normal NEG [facility] Comment on above: Performed By: #### TYS #### [place] [address] [employer] Rib[employer] Winder: Kris Pardo MD PH,Ur 7.0 Normal 5.0-8.0 [facility] Comment on above: Performed By: #### TYS #### [place] [address] [employer] Rib[employer] Winder: Kris Pardo MD Protein Ql (U) Negative Normal NEG [facility] Comment on above: Performed By: #### TYS #### [facility] [id number] Typewriter Ribbon Winder: Kris Pardo MD Spec. [place],Ur 1.006 Normal 1.005-1.030 [facility] Comment on above: Performed By: #### TYS #### [place] [address] [employer] Ribbon Winder: Kris Pardo MD Urobilinogen,Ur Normal Normal 0.0-1.0 [facility] Comment on above: Performed By: #### TYS #### [place] [address] [employer] Rib[employer] Winder: Kris Pardo MD Urinalysis,Microon 3 Bacteria FEW Abnormal NONE [facility] Comment on above: Performed By: #### TYS #### [place] [address] [employer] Rib[employer] Winder: Kris Pardo MD Epithelial cells LM Ql (Urine sed) 0 TO 2 Normal 0-5 [facility] Comment on above: Performed By: #### TYS #### [place] [address] [employer]writer Ribbon Winder: Kris Pardo MD Other Observations Utilizing a urinalysis as the only screening method to exclude a potential Abnormal NREQ [facility] Comment on above: Result Comment: uropathogen can be unrel iable in many patient populations. Rapid screening tests are less sensitive than culture and if UTI is a clinical possibility, culture should be considered despite a negative urinalysis. Performed By: #### T YS #### [place] [id number] [employer] Rib[employer] Winder: Kris Pardo MD Urine RBC's 20 TO 50 Normal 0-2 [facility] Comment on above: Performed By: #### TYS #### [place] [id number] [place], [place] [id number] Typewriter Ribbon Winder: Kris Pardo MD Urine WBC's 0 TO 2 Normal 0-5 [facility] Comment on above: Performed By: #### TYS #### [place] [id number] [employer]writer Ribbon Winder: Kris Pardo MD Hgb/Hcton 10-21-2022 Hematocrit (Bld) [Volume fraction] 38.0 % Normal 36-46 [facility] Comment on above: Performed By: #### HH #### [place] [id number] [employer]writer Ribbon Winder: Kris Pardo MD Hemoglobin (Bld) [Mass/Vol] 12.6 g/dL Normal 12.0-16.0 [facility] Comment on above: Performed By: #### HH #### [place] [address] [employer]writer Ribbon Winder: Kris Pardo MD OPERATIVE REPORTon 3 OPERATIVE REPORT [address] [address] OPERATIVE REPORT PATIENT NAME: CHERYL HECTOR : 1965 MED REC NO: [id number] ROOM: ACCOUNT NO: [id number] ADMIT DATE: 10/21/2022 PROVIDER: Pete Rod DO [...] Robotic-assisted laparoscopic hysterectomy with bilateral salpingectomy, internal Aldana-Rae culdoplasty with uterosacral suspension and enterocele repair, anterior colporrhaphy, posterior colpoperineorrhaphy for gaping perineum, cystourethroscopy with filling cystometrogram and Bulkamid transurethral bulking injection therapy. SURGEON: Pete Rod DO ASSISTANTS: Kirsten Freeman DO and Fernando , . ANESTHESIA: General endotracheal. FINDINGS: As above. SPECIMENS: [...] bladder was drained with Jarvis catheter. A [employer] uterine manipulator was placed without incident. The [...] the right upper quadrant as an accessory data entry assistant port. The robot was docked with [...] The vaginal cuff was then closed with [id number] mucosal-mucosal Vicryl sutures incorporating the cuff angles [...] fascial closure (more content not included)... Normal [facility] Surgical Pathologyon 023 Surgical Pathology (NOTE) Path Number: [id number] -- Diagnosis -- A. UTERUS, CERVIX, AND [...] FALLOPIAN TUBES B: VAGINAL MUCOSA Gross Description AJose HECTOR, UTERUS, CERVIX AND BILATERAL FALLOPIAN TUBES [...] lumen lined by a meza-pink, soft mucosa. Political Anthropologist sections are submitted in [facility] as follows: 1 anterior cervix 2 posterior cervix 3 endomyometrial polyps 4 anterior endomyometrium 5 posterior endomyometrium 6-7 intramural and subserosal nodules, mill representative 8-9 one entire fallopian tube 10-12 one entire fallopian tube. B. CHERYL HECTOR VAGINAL MUCOSA Received in formalin are three fragments of meza-calvillo, wrinkled and ragged vaginal mucosa ranging from 1.6 to 7.5 cm. Sectioning reveals meza-pink, rubbery cut surfaces with no obvious masses or lesions identified. Political Anthropologist sections 1c. tm Microscopic Description A, B. Microscopic examination performed. Processing Lab: [address] [id number] Interpretation Performed at [address] [address] SURGICAL PATHOLOGY CONSULTATION Patient Name: CHERYL HECTOR [facility] Rec: [id number] [facility] [employer] [facility] ANATOMIC PATHOLOGY [address] [facility] [place], [place] [id number] Normal [facility] Type + Screenon 10-21-2022 Type + Screen Sample Expiration 10/24/2022,2359 Arm Band Number [id number] ABO/Rh(D) O POSITIVE Antibody Screen NEGATIVE Normal [facility] Comment on above: Performed By: #### TYS #### [address] [address] Typewriter Ribbon Winder: Kris Pardo MD Type + Screenon 10-14-2022 Type + Screen Sample Expiration 10/24/2022,2359 Arm Band Number [id number] ABO/Rh(D) O POSITIVE Antibody Screen NEGATIVE Normal [facility] Comment on above: Performed By: #### TYS #### [address] [address] Typewriter Ribbon Winder: Kris Pardo MD Office Visit (Cardiology)on 09-12-2022 [...] try to retrieve her recent labs from [facility]. The patient was advised to lose [...] Signs Recorded: 12Sep2022 12:04PM Heart Rate70, Apical Tfysmhus076, LUE, Sitting Lffqmflif29, LUE, Sitting Height5 ft 4 in Phxeex985 lb BMI Yombmipxzb39.67 kg/m2 BSA Calculated1.81 Tobacco Useb) No PHQ-2 #1. Over the last 2 weeks have you felt down, depressed or hopeless? (If yes, answer PHQ-9 below)No PHQ-2 #2. Over the last 2 weeks have you felt little interest or pleasure in doin (more content not included)... Normal [facility] Tobacco Screening.on 023 Adult depression screening assessment No [facility] [employer] [address] 600 DO Work Phone: Fall risk assessment a) No falls within the last year [facility] Work Phone: Tobacco use status CPHS b) No [facility] Work Phone: Ambulatory Visit Summaryon 0 06-05-2022 Ambulatory Visit Summary CHERYL HECTOR :1965 Visit Date:06/05/2022 Ambulatory Visit Instructions Your Care Team Attending Physician - BRENDA SOTO, Cristo Arias Primary Care Physician - Fausto SOTO, Sera This Is Your Medications List Contact prescribing [...] Hypotension Kidney stone Plantar fasciitis Normal [facility] General Surgery Office/Clini c Noteon [...] SARS-CoV-2 (COVID-19) mRNA-1273 vaccine 04/21/2020 Recorded Normal [facility] Comment on above: Result Comment: Electronically Signed By : BRENDA SOTO, Cristo Arias\.br\Date and Time Signed: 06/05/22 16:56 EDT Pathology Noteon 06-03-2022 Pathology Note [id number]#1.00CD:127 [facility] Outside Colonoscopyon 2022 Outside Colonoscopy [id number]#1.00CD:127 [facility] Reminderson 05-30-2022 Reminders - From: Nedra Juares LPN To: GSN - Clinical; Sent: 05/30/2022 09:37:12 EST Show up: 05/01/2032 07:00:00 EST Subject: colonoscopy recall Due Date/Time: 05/29/2032 07:00:00 EST Reminder/Recall Patient is due for screening colonoscopy 05/29/2032. [facility] Facesheeton 05-07-2022 Facesheet [id number]#1.00CD:127 [facility] Consent for Procedure/Surger yon 05-06-2022 Consent for Procedure/Surger y [id number]#1.00CD:127 [facility] Ambulatory Visit Summaryon 0 05-03-2022 Ambulatory Visit Summary CHERYL HECTOR :1965 Visit Date:05/03/2022 Ambulatory Visit Instructions Your [...] Cholecystectomy Hypotension Kidney stone Plantar fasciitis Normal [facility] Physician Referralon 023 Physician Referral [id number]:127 Normal [facility] MM screening mammo BI w/CADo n 01-24-2022 MM screening mammo BI w/CAD [facility] Main [place] [address] [place] [address] Mammography Report Signed Patient: Cheryl Hector MR#: [id number] : 1965 Acct:[id number] Age/Sex: 56 / F ADM Date: 01/24/22 Loc: IN [facility]: [facility]: Jose Dangelo MD Copies to: [...] Kunal Osorio M.D.01/24/2022 4:44 PM Dictation Location: [facility] Transcribed By: MAHESH 01/24/22 9822 Dictated By: Kunal Osorio II, MD 01/24/22 1640 Signed By: 01/24/22 8548 [facility] Tobacco Screening.on 022 Adult depression screening assessment No -[facility] [address] DO Work Phone: Tobacco use status CPHS b) No [facility] [address] DO Work Phone: CNOVon 09-10-2019 CNOV Office Visit (UROLMN ) CHERYL HECTOR ([id number]) 1965 F Date Time Provider Department 09/10/19 9:00 AM WILMER LOVELACE During your visit today, we recorded the following information about you: Wilmer Lovelace MD 11/05/2019 11:22 AM Addendum [facility] [...] before COVID 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 Wilmer Lovelace MD Staff [facility] Electronically signed Ashley Colby MA, MA 09/10/2019 8:52 AM Signed PVR 0ml Neri Sy MD, 09/10/2019 9:31 AM Signed [place] [facility] Recurrent UTI Step Prevention Program: Takes 6 [...] as miralax. We would suggest avoiding intermediate designer use of laxatives though and if you [...] Unknown Date Reviewed: 09/10/2019 Reviewed by: Neri Sy MD (Fel) - Fully Assessed Primary Visit Diagnosis:Microscopic hematuria [R31.29] Other Visit Diagnoses:Cystocele, midline [N81.11] Recurrent UTI [N39.0] Order(s):UA DIP, URINE (POC) [[id number]] Order #: [id number]. #:[id number] URINALYSIS WITH MICROSCOPIC [SQUAWMIC] Order #: [id number] FUTURE conjugated estrogens (PREMARIN) vaginal creamUse 0.5 g vaginally once daily.Disp: 42.5 gRfl: 3 URINALYSIS WITH MICROSCOPIC [SQUAWMIC] Order #: [id number]. #:[id number] Prescriptions as of 09/10/2019 Sig: ESTRADIOL 10 MCG VAGINAL TABL* Use 1 tablet vaginally. PREMARIN 0.625 MG/GRAM VAGINA* Use 0.5 g vaginally once joaquina* Problem List As Of Date: 09/10/2019 (None) Other instructions from your clinician: [facility] [place] Recurrent UTI Step Prevention Program: Takes 6 [...] such as miralax. We would suggest avoiding detention use of laxatives though and if you [...] by WILMER LOVELACE MD on 09/10/19 Normal [facility] PROGRESSon 09-10-2019 PROGRESS HNO ID: [id number] Author: Wilmer Lovelace Service: ? 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 [place] Recurrent microscopic hematuria Cystoscopy and renal US [...] work-up including cysto and ANA performed by [facility] urologist in [phone] - Will send off UA with microscopy [...] Medicine and Reconstructive Surgery Electronically signed Normal [facility] Urinalysis with Microscopico n 09-10-2019 Bilirubin, Urine Negative Normal Negative [facility] Comment on above: Performed By: #### UAWMIC #### [place] [id number] [place] [phone] Clarity (U) Clear Normal Clear [facility] Comment on above: Performed By: #### UAWMIC #### [place] [phone] Color (U) Colorless Critically abnormal Yellow [facility] Comment on above: Performed By: #### UAWMIC #### [place] [phone] Comments SEE COMMENT Normal [facility] Comment on above: Result Comment: N/A Performed By: #### U AWMIC #### [place] [address] [place] [phone] Glucose Ql (U) Negative Normal Negative [facility] Comment on above: Performed By: #### UAWMIC #### [facility] [place] [phone] Hemoglobin/Blood ,Ur 1+ Critically abnormal Negative [facility] Comment on above: Performed By: #### UAWMIC #### [place] [address] [place] [phone] Ketones Ql (U) Negative Normal Negative [facility] Comment on above: Performed By: #### UAWMIC #### [facility] [address] [place] [address] Leukest Negative Normal Negative [facility] Comment on above: Performed By: #### UAWMIC #### [facility] [address] [place], [place] [address] Nitrite Ql (U) Negative Normal Negative [facility] Comment on above: Performed By: #### UAWMIC #### [facility] [address] [place] [address] pH (Bld) 6.0 Normal 5.0-8.0 [facility] Comment on above: Performed By: #### UAWMIC #### [place] [address] [place] [address] Protein (U) [Mass/Vol] Negative Normal Negative [facility] Comment on above: Performed By: #### UAWMIC #### [place] [address] [place] [address] RBC (U) [#/Vol] 0-3 Normal 0-3 [facility] Comment on above: Performed By: #### UAWMIC #### [facility] [address] [place] [phone] Specific [place], Ur 1.006 Normal 1.005-1.030 [facility] Comment on above: Performed By: #### UAWMIC #### [facility] [address] [place] [address] Urine Noman Comment SEE COMMENT Normal [facility] Comment on above: Result Comment: N/A Performed By: #### U AWMIC #### [facility] [address] [place] [address] Urobilinogen Qn (U) Negative Normal Negative [facility] Comment on above: Performed By: #### UAWMIC #### [place] [address] [place] [address] WBC (Bld) [#/Vol] 0-5 Normal 0-5 [facility] Comment on above: Performed By: #### UAWMIC #### [facility] [address] [place], [place] [address] Vital Signs Date Time Vital Sign Value Performing Clinician Facility 09-12-2022 12:04-0400 Body height 162.56 cm Janna E Mast Work Phone: [facility] 600 DO Work Phone: 09-12-2022 12:04-0400 Body mass index (BMI) [Ratio] 28.67 kg/m2 Janna E Mast Work Phone: [facility] 600 DO Work Phone: 09-12-2022 12:04-0400 Body surface area Derived from formula 1.81 m2 Janna E Mast Work Phone: [facility] 600 DO Work Phone: 09-12-2022 12:04-0400 Body weight 75.75 kg Janna E Mast Work Phone: [facility] 600 DO Work Phone: 09-12-2022 12:04-0400 Diastolic blood pressure 70 mm[Hg] Janna E Mast Work Phone: [facility] 600 DO Work Phone: 09-12-2022 12:04-0400 Heart rate 70 /min Janna E Mast Work Phone: [facility] 600 DO Work Phone: 09-12-2022 12:04-0400 Systolic blood pressure 104 mm[Hg] Janna E Mast Work Phone: [facility] 600 DO Work Phone: 05-03-2022 15:33-0500 Blood Pressure Location Cristo CROCKER [facility] [place] 05-03-2022 15:33-0500 Diastolic blood pressure 96 mm[Hg] Cristo CROCKER [facility] [place] 05-03-2022 15:33-0500 Heart rate 70 /min Cristo ELLISONL [facility] [place] 05-03-2022 15:33-0500 Respiratory rate 16 /min Cristo ELLISONL [facility] [place] 05-03-2022 15:33-0500 Systolic blood pressure 134 mm[Hg] Cristo ELLISONL [facility] [place] 05-22-2021 16:14-0500 Diastolic blood pressure 85 mm[Hg] Janna E Mast Work Phone: [facility] [employer] 250 DO Work Phone: 05-22-2021 16:14-0500 Systolic blood pressure 122 mm[Hg] Janna E Mast Work Phone: [facility] [employer] 250 DO Work Phone: 05-22-2021 15:57-0500 Body height 162.56 cm Janna E Mast Work Phone: [facility] 250 DO Work Phone: 05-22-2021 15:57-0500 Body mass index (BMI) [Ratio] 28.32 kg/m2 Ajnna E Mast Work Phone: [facility] 250 DO Work Phone: 05-22-2021 15:57-0500 Body surface area Derived from formula 1.8 m2 Janna E Mast Work Phone: [facility] 250 DO Work Phone: 05-22-2021 15:57-0500 Body weight 74.84 kg Janna E Mast Work Phone: [facility] 250 DO Work Phone: 05-22-2021 15:57-0500 Diastolic blood pressure 100 mm[Hg] Janna E Mast Work Phone: [facility] 250 DO Work Phone: 05-22-2021 15:57-0500 Heart rate 80 /min Janna E Mast Work Phone: [facility] 250 DO Work Phone: 05-22-2021 15:57-0500 Systolic blood pressure 140 mm[Hg] Janna E Mast Work Phone: [facility] 250 DO Work Phone: 05-16-2021 10:56-0500 102.2 1 Janna E Mast Work Phone: [facility] 250 DO Work Phone: Comment on above: FSLDL Encounters Encounter Date Encounter Type Care Provider Facility Start: 10-25-2022 End: 10-25-2022 Emergency department patient visit FAIZAN [id number] DILCIACHRISTY [facility] Start: 10-21-2022 End: 10-21-2022 ambulatory PETE ROD [facility] Start: 10-14-2022 End: 10-15-2022 ambulatory SERA LAMBERT [facility] Start: 09-12-[address] Vamsi Serrano Facility: Start: 09-12-2022 Patient encounter procedure Janna E Mast Work Phone: [facility] 600 DO Work Phone: Start: 06-05-2022 End: 06-06-2022 ambulatory Cristo CROCKER Facility:[facility] Start: 06-05-2022 End: 06-05-2022 Patient encounter procedure Cristo CROCKER [facility] Start: 06-03-2022 Telephone encounter Janna E Mas t Work Phone: [facility] 600 DO Work Phone: Start: 05-29-2022 End: 05-30-[address] CRISTO CROCKER . Facility: Start: 05-03-2022 End: 05-04-2022 ambulatory Sera Lambert Facility:[facility] Start: 05-03-2022 End: 05-03-2022 Patient encounter procedure Cristo CROCKER [facility] [place] Start: 04-25-2022 ambulatory Cristo CROCKER Facility :[facility] Start: 01-24-2022 End: 01-24-2022 ambulatory Sera Lambert Facility:[facility] Start: 05-22-2021 Office outpatient vi sit 15 minutes Janna E Mast Work Phone: [facility] 250 DO Work Phone: Start: 07-02-2017 Ambulatory VAMSI SERRANO Faci lity:[id number] Patient encounter status Janna E Mast Work Phone: [facility] 600 DO Work Phone: Procedures Date Procedure [...] Vamsi Serrano, Status: Pen, Time: 10:10 AM [facility] 600 DO Work Phone: Start: 10-08-2022 FUV, Provider: Vamsi Serrano, Status: Pen, Time: 2:00 PM FUV, Provider: Vamsi Serrano, Status: Pen, Time: 2:00 PM [facility] 600 DO Work Phone: Start: 06-04-2022 FUV, Provider: Vamsi Serrano, Status: Pen, Time: 3:50 PM FUV, Provider: Vamsi Serrano, Status: Pen, Time: 3:50 PM [facility] 250 DO Work Phone: Immunizations Immunization Date Immunization Notes Care Provider Tracy espino 01-23-2022 influenza, seasonal, injectable Janna E Mast Work Phone: [facility] 600 DO Work Phone: 01-22-2022 influenza virus vacc ine, unspecified formulation Cristo CROCKER [facility] [place] 03-19-2021 Moderna COVID-19 Vac cine 100 MCG/0.5ML Intramuscular Suspension Janna E Mast Work Phone: [facility] [place] 05-19-2020 Moderna COVID-19 Vac cine 100 MCG/0.5ML Intramuscular Suspension Janna E Mast Work Phone: [facility] [place] 04-21-2020 Moderna COVID-19 Vac cine 100 MCG/0.5ML Intramuscular Suspension Janna E Mast Work Phone: [facility] 01-18-2020 influenza virus vacc ine, unspecified formulation Janna E Mast Work Phone: [facility] 250 DO Work Phone: 12-23-2019 influenza virus vacc ine, unspecified formulation Janna E Mast Work Phone: [facility] 250 DO Work Phone: 01-06-2018 influenza virus vacc ine, unspecified formulation Janna E Mast Work Phone: [facility] 250 DO Work Phone: 12-22-2016 influenza virus vacc ine, unspecified formulation Janna E Mast Work Phone: [facility] 250 DO Work Phone: 01-21-2002 hepatitis B vaccine, adult dosage Janna E Mast Work Phone: [facility] 250 DO Work Phone: Payers Date Payer Category Payer Self-pay 1965 Unknown [id number] 1965 Unknown [id number] 1965 Unknown [id number] 1965 Unknown [id number] 1965 Unknown [id number] 1965 Unknown [id number] 1965 Unknown [id number] 1965 Unknown [id number] 1965 Unknown [id number] 1959 Unknown [id number] Unknown [facility] Unknown [id number] Social History Date Type Detail Facility Social alcohol use Social alcohol use [place] [address] DO Work Phone: Start: 05-03-2022 Tobacco smoking status Never s moked tobacco (finding) [facility] [place] Tobacco smoking status Never [facility] [place] Sex Assigned At Female [facility] Functional Status Date Assessment Result Facility 05-03-2022 Functional Status N/A [facility] Clinical Note 05-29-2022 Note Date & [...] good condition. CC: Patient's family physician [facility] Clinical Note 05-03-2022 Note Date & [...] (12/29/2014), Cystourethroscopy with (more content not included)... [facility] Comment on above: Result Comment: Elec tronically Signed By: BRENDA SOTO, Cristo Dueñas\Date and Time Signed: 05/03/22 16:43 EST Evaluation + Plan note Note Date & Type Note Facility Evaluation + Plan note No data available for this section [facility] [place] History of Present illness Narrative Note Date [...] exercise.5. Reviewed with her her recent lab -[facility] 250 DO Work Phone: History of Present [...] try to retrieve her recent labs from [place]. The patient was advised to lose weight and exercise.5. I reviewed with patient preoperative cardiac risk for her upcoming hysterectomy. I believe her operative risk is acceptable and she can proceed she was given permission to hold aspirin for 7 days prior to [facility] Work Phone: Hospital Discharge instructions Note Date & Type Note Facility Hospital Discharge instructions No data available for this section General Surgery [facility] Progress note Note Date & Type Note Facility Progress note No data available for this section [facility] [place] Summary Purpose Family History No Family History [...] section and content) DATE CREATED AUTHOR 09/11/2017 [facility] DATE CREATED AUTHOR AUTHOR'S ORGANIZ ATION 04/15/2020 [facility] DATE CREATED AUTHOR AUTHOR'S ORGANIZ ATION 02/06/2022 [facility] DATE CREATED AUTHOR AUTHOR'S ORGANIZ ATION 06/03/2022 [facility] DATE CREATED AUTHOR AUTHOR'S ORGANIZ ATION 06/21/2022 [facility] DATE CREATED AUTHOR AUTHOR'S ORGANIZ ATION 09/13/2022 [facility] DATE CREATED AUTHOR AUTHOR'S ORGANIZ ATION 09/13/2022 [employer] DATE CREATED AUTHOR AUTHOR'S ORGANIZ ATION 11/08/2022 [facility] Patient Care team informatio n (unrecognized section and content) Personnel Name: Sera Lambert MD Address: Address: [address] [place] [address] Personnel Name: Sera Lambert MD Address: Address: [address] [place] [address] FOR RECORDS PERTAINING TO PATIENTS WHO ARE [...] BE BASED ON THE PRIMARY CLINICAL RECORDS. [employer] provides no warranty or guarantee of the accuracy or completeness of information in this document.
--- NOTE | 2023-05-14 08:03 | CT_ITS ---
[address] [address] Patient Name: REBECCA HECTOR MRN: [id number] date: 1965 Sex: F Assigned Patient Location: CT Current Patient Location: CT Accession/Order Number: [id number] Exam Date: 05/14/2023 08:10 Report Date: 05/14/2023 09:15 At the request of: NON-STAFF PHYSICIAN Procedure: CT abdomen pelvis wo/w con EXAMINATION: CT abdomen pelvis wo/w con HISTORY: Microscopic Hematuria, Right Flank Pain COMPARISON: No relevant comparison available. TECHNIQUE: Axial, Coronal, and Sagittal images were obtained without and/or with IV contrast as indicated by examination type. Dose reduction techniques were achieved by using automated exposure control and/or adjustment of mA and/or kV according to patient size and/or use of iterative reconstruction technique. FINDINGS: LUNG BASES: No visible pulmonary or pleural disease. LIVER: No enlargement, atrophy, suspicious density, or significant focal lesion. BILIARY: Cholecystectomy. PANCREAS: No lesion, fluid collection, or abnormal duct dilatation. SPLEEN: No enlargement or focal lesion. ADRENALS: Small left adrenal nodule with areas of fat density favoring a benign adenoma. KIDNEYS: No mass, obstruction, or calcification. BOWEL/MESENTERY: Large hiatal hernia. No visible mass, obstruction, or bowel wall thickening. AORTA/VASCULAR: No aneurysm or dissection. RETROPERITONEUM: No mass or adenopathy. LYMPH NODES: No adenopathy. URINARY BLADDER: No visible focal wall thickening, lesion, or calculus. PELVIC ORGANS: No visible mass. Pelvic organs appropriate for patient age. ABDOMINAL WALL: No mass or hernia. BONES: Grade 1 anterolisthesis of L4 on 5. Moderate degenerative facet arthropathy L4-5, L5-S1. OTHER: Negative. CT/CT abdomen pelvis wo/w con IMPRESSION: 1. No urinary tract calculi, mass, or obstructive uropathy to account for patient's symptoms. 2. Large hiatal hernia. Otherwise unremarkable bowel. 3. Degenerative changes of lumbar spine. Electronically authenticated by: ADRIA BOOTH Date: 05/14/2023 09:15
== END 2023-05-14 07:59 | disposition home or self-care (01) ==
LOC: CT 07:58
PROVIDERS: PCP Family Medicine
DX: R31.29 Other microscopic hematuria (principal); R10.9 Unspecified abdominal pain; K44.9 Diaphragmatic hernia without obstruction or gangrene
CPT/HCPCS: 74178; Q9967

== ENCOUNTER 2023-08-04 14:48 | Outpatient (OUT) | payer OTHER, SELFPAY ==
--- NOTE | 2023-08-04 14:51 | MR_ITS ---
The [address] [address] Patient Name: REBECCA HECTOR MRN: [id number] date: 1965 Sex: F Assigned Patient Location: MRI Current Patient Location: MRI Accession/Order Number: [id number] Exam Date: 08/04/2023 15:00 Report Date: 08/04/2023 18:22 At the request of: SERA ARCINIEGA Procedure: MR head/brain wo con EXAM: MR head/brain wo con HISTORY: Migraine G43.909, Arteriovenous Malformation Q27.30 COMPARISON: None. TECHNIQUE: MRI of the brain was performed without contrast. FINDINGS: There is no restricted diffusion to suggest acute infarct. There is no midline shift, mass effect, or abnormal extraaxial fluid collections. The cortical sulci and ventricular system are within normal limits. There is a small focus of blooming hypointense signal on SWI in the right frontal calvillo-white matter junction, likely hemosiderin deposition from a remote microhemorrhage. Multiple nonspecific scattered foci of T2/FLAIR signal abnormality are identified in the subcortical and periventricular white matter, likely reflect chronic microvascular ischemic changes. The major intracranial flow voids are visualized. The cerebellar tonsils are normal in position. The orbits are unremarkable. The paranasal sinuses show no air-fluid level. The mastoid air cells are clear. The calvarium and extracranial soft tissues are unremarkable. MR/MR head/brain wo con IMPRESSION: No acute intracranial abnormality. Mild to moderate chronic microvascular ischemic changes. A small focus of blooming hypointense signal on SWI in the right frontal lobe, likely hemosiderin deposition from a remote microhemorrhage. There is no evidence of arteriovenous malformation in this noncontrast brain MR study. Recommend follow-up with brain MRI with contrast. Electronically authenticated by: ALMA HOLTU Date: 08/04/2023 18:22
--- OUTSIDE RECORDS SUMMARY | 2023-08-04 15:12 | XMS_ITS | CCD ---
Author Organization [facility] Care Team Providers Care Automatic Head Sawyer Name Role Phone VAMSI SERRANO Unavailable Unavailable MASTJANNA Unavailable Unavailable Mast, Janna E Unavailable Unavailable Unavailable Srea Lambert Primary Care Unavailable Jose Dangelo Attending Unavailable Jose Dangelo Admitting Unavailable Sera Lambert Primary Care Physician [phone] NILL ., DR LEMONS Admitting Unavailable NILL ., DR LEMONS Attending Unavailable HOY ., DR ZAMORA Primary Care Unavailable NILL ., DR LEMONS Consulting Unavailable CORYSPENCER Consulting Unavailable FAIZAN WILD Unavailable Cristo CROCKER Attending Unavailable Sera Lambert Referring Unavailable Sera Lambert Referring Unavailable NILLCristo Attending Unavailable NILLCristo Attending Unavailable NILLCristo Attending Unavailable Traboulssi, Dr. Noel Referring Unavaila ble Traboulssi, Dr. Noel Attending Unavaila ble Catherine, Dr. Janna Marti Primary Care Unavailabl PETE Reyna Admitting Unavailable PETE ROD Attending Unavailable SERA LAMBERT Primary Care Unavailable FAIZAN SNYDER~[id number] Attendin g SERA Evans Primary Care Unavailable SERA LAMBERT Primary Care Unavailable PETE ROD Referring Unavailable Allergies Allergy Classification Reported Allergen(s) Allergy Type Date of Onset Reaction(s) Facility (6 sources) Amoxicillin; Translations: [amoxicillin] Drug Allergy [facility] (disorder) General [facility] (3 sources) atorvastatin; Translations: [atorvastatin] Drug Allergy -[facility] y 250 DO Work Phone: (2 sources) ezetimibe; Translations: [Zetia] Drug Allergy [facility] y 250 DO Work Phone: (4 sources) Hmg-Coa Reductase Inhibitors (Statins); Translations: [Statins] Allergy to drug (finding) [facility] Repository (3 sources) oxyCODONE; Translations: [oxycodone] Drug Allergy [employer] y 250 DO Work Phone: (3 sources) Pravastatin; Translations: [Pravastatin Sodium TABS] Drug Allergy [employer] [facility] y 250 DO Work Phone: (1 source) Amoxicillin Drug Allergy 02-22-20 [facility] (1 source) Aspirin Drug Allergy 02-22-20 [facility] (2 sources) Codeine; Translations: [codeine] Drug Allergy 02-22-20 [facility] (1 source) oxyCODONE Drug Allergy 02-22-20 [facility] (3 sources) Acetaminophen / oxyCODONE; Translations: [acetaminophen-oxy codone] Drug Allergy Projectile vomiting (disorder) [facility] (3 sources) Aspirin / oxyCODONE; Translations: [aspirin-oxycodone ] Drug Allergy Projectile vomiting (disorder) [facility] (2 sources) Codeine; Translations: [codeine] Drug Allergy Edema (finding) [facility] (2 sources) HMG-CoA reductase inhibitor; Translations: [statins] Drug allergy Unknown (qualifier value) [facility] (4 sources) Latex; Translations: [latex] Allergy to substance 12-23-19 15 Redness, Itching [facility] (3 sources) NITROFURANTOIN, MACROCRYSTALS / Nitrofurantoin, Monohydrate; Translations: [nitrofurantoin] Drug Allergy Joint pain (finding), Cutaneous eruption (morphologic abnormality) [facility] (1 source) Acetaminophen / oxyCODONE Drug [...] Translations: [bandaids] Propensity to adverse reactions (disorder) [facility] Repository Medications Current Medications Medication Drug [...] 3 Other aftercare (1 source) 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 control servicer (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) use of aspirin; Translations: [USP CURRENT USE OF ASPIRIN] Onset: 3 Episodic Other aftercare (1 source) Other snf (current) drug therapy; Translations: [OTH USP CURRENT DRUG THERAPY] Onset: 3 Episodic Other [...] Anion gap [Moles/Vol] 10 mmol/L Normal 9-17 [facility] Comment on above: Performed By: #### BMP, CDP, LIP, LIVP, TROPI #### [facility] [id number] [employer] Apprentice: Kris Pardo MD Calcium [Mass/Vol] 9.3 mg/dL Normal 8.6-10.4 [facility] Comment on above: Performed By: #### BMP, CDP, LIP, LIVP, TROPI #### [place] [id number] [employer] Apprentice: Kris Pardo MD Chloride [Moles/Vol] 101 mmol/L Normal 98-107 [facility] Comment on above: Performed By: #### BMP, CDP, LIP, LIVP, TROPI #### [place] [address] [employer] Apprentice: Kris Pardo MD CO2 [Moles/Vol] 28 mmol/L Normal 20-31 [facility] Comment on above: Performed By: #### BMP, CDP, LIP, LIVP, TROPI #### [place] [address] [employer] Apprentice: Kris Pardo MD Creatinine [Mass/Vol] 0.6 mg/dL Normal 0.5-0.9 [facility] Comment on above: Performed By: #### BMP, CDP, LIP, LIVP, TROPI #### [place] [address] [employer] Apprentice: Kris Pardo MD GFR/1.73 sq M.predicted among non-blacks MDRD (S/P/Bld) [Vol rate/Area] mL/min/{1.73_m2} Normal >60 [facility] Comment on above: Result Comment: [...] B MP, CDP, LIP, LIVP, TROPI #### [place] [address] [employer] Apprentice: Kris Pardo MD Glucose [Mass/Vol] 102 mg/dL High 70-99 [facility] Comment on above: Performed By: #### BMP, CDP, LIP, LIVP, TROPI #### [place] [address] [employer] Apprentice: Kris Pardo MD Potassium [Moles/Vol] 4.3 mmol/L Normal 3.7-5.3 [facility] Comment on above: Performed By: #### BMP, CDP, LIP, LIVP, TROPI #### [place] [address] [employer] Apprentice: Kris Pardo MD Sodium [Moles/Vol] 139 mmol/L Normal 135-144 [facility] Comment on above: Performed By: #### BMP, CDP, LIP, LIVP, TROPI #### [place] [address] [employer] Apprentice: Kris Pardo MD Urea nitrogen [Mass/Vol] 13 mg/dL Normal 6-20 [facility] Comment on above: Performed By: #### BMP, CDP, LIP, LIVP, TROPI #### [place] [address] [employer] Apprentice: Kris Pardo MD CBC with Diffon 10-25-2022 Abs. Basophil 0.10 k/uL Normal 0.0-0.2 [facility] Comment on above: Performed By: #### BMP, CDP, LIP, LIVP, TROPI #### [place] [address] [employer] Apprentice: Kris Pardo MD Abs.Neutrophil (Seg) 7.10 k/uL Normal 1.8-7.7 [facility] Comment on above: Performed By: #### BMP, CDP, LIP, LIVP, TROPI #### [place] [address] [employer] Apprentice: Kris Pardo MD Basophils/100 WBC (Bld) 1 % Normal 0-2 [facility] Comment on above: Performed By: #### BMP, CDP, LIP, LIVP, TROPI #### [place] [address] [employer] Builder Apprentice: Kris Pardo MD Eosinophils (Bld) [#/Vol] 0.50 10*3/uL High 0.0-0.4 [facility] Comment on above: Performed By: #### BMP, CDP, LIP, LIVP, TROPI #### [place] [address] [employer] Apprentice: Kris Pardo MD Eosinophils/100 WBC (Bld) 5 % High 1-4 [facility] Comment on above: Performed By: #### BMP, CDP, LIP, LIVP, TROPI #### [place] [address] [employer] Apprentice: Kris Pardo MD Erythrocyte distribution width (RBC) [Ratio] 12.9 % Normal 12.5-15.4 [facility] Comment on above: Performed By: #### BMP, CDP, LIP, LIVP, TROPI #### [place] [address] [employer] Apprentice: Kris Pardo MD Hematocrit (Bld) [Volume fraction] 36.9 % Normal 36-46 [facility] Comment on above: Performed By: #### BMP, CDP, LIP, LIVP, TROPI #### [place] [address] [employer] Builder Apprentice: Kris Pardo MD Hemoglobin (Bld) [Mass/Vol] 12.5 g/dL Normal 12.0-16.0 [facility] Comment on above: Performed By: #### BMP, CDP, LIP, LIVP, TROPI #### [place] [address] [employer] Apprentice: Kris Pardo MD Lymphocytes (Bld) [#/Vol] 1.20 10*3/uL Normal 1.0-4.8 [facility] Comment on above: Performed By: #### BMP, CDP, LIP, LIVP, TROPI #### [place] [address] [employer] Builder Apprentice: Kris Pardo MD Lymphocytes/100 WBC (Bld) 13 % Low 24-44 [facility] Comment on above: Performed By: #### BMP, CDP, LIP, LIVP, TROPI #### [place] [address] [employer] Apprentice: Kris Pardo MD MCH (RBC) [Entitic mass] 29.9 pg Normal 26-34 [facility] Comment on above: Performed By: #### BMP, CDP, LIP, LIVP, TROPI #### [place] [address] [employer] Apprentice: Kris Pardo MD MCHC (RBC) [Mass/Vol] 33.9 g/dL Normal 31-37 [facility] Comment on above: Performed By: #### BMP, CDP, LIP, LIVP, TROPI #### [place] [address] [employer] Builder Apprentice: Kris Pardo MD MCV (RBC) [Entitic vol] 88.0 fL Normal 80-100 [facility] Comment on above: Performed By: #### BMP, CDP, LIP, LIVP, TROPI #### [place] [address] [employer] Builder Apprentice: Kris Pardo MD Monocytes (Bld) [#/Vol] 0.60 10*3/uL Normal 0.1-1.2 [facility] Comment on above: Performed By: #### BMP, CDP, LIP, LIVP, TROPI #### [place] [address] [employer] Apprentice: Kris Pardo MD Monocytes/100 WBC (Bld) 6 % Normal 2-11 [facility] Comment on above: Performed By: #### BMP, CDP, LIP, LIVP, TROPI #### [place] [address] [employer] Builder Apprentice: Kris Pardo MD Neutrophil (Seg) 75 % High 36-66 [facility] Comment on above: Performed By: #### BMP, CDP, LIP, LIVP, TROPI #### [place] [address] [employer] Builder Apprentice: Kris Pardo MD Platelet mean volume (Bld) [Entitic vol] 7.6 fL Normal 6.0-12.0 [facility] Comment on above: Performed By: #### BMP, CDP, LIP, LIVP, TROPI #### [address] [place] [address] Truck Body Builder Apprentice: Kris Pardo MD Platelets (Bld) [#/Vol] 287 10*3/uL Normal 140-450 [facility] Comment on above: Performed By: #### BMP, CDP, LIP, LIVP, TROPI #### [place] [id number] [employer] Apprentice: Kris Pardo MD RBC (Bld) [#/Vol] 4.20 10*6/uL Normal 4.0-5.2 [facility] Comment on above: Performed By: #### BMP, CDP, LIP, LIVP, TROPI #### [place] [address] [employer] Builder Apprentice: Kris Pardo MD WBC (Bld) [#/Vol] 9.4 10*3/uL Normal 3.5-11.0 [facility] Comment on above: Performed By: #### BMP, CDP, LIP, LIVP, TROPI #### [place] [address] [employer] Builder Apprentice: Kris Pardo MD CT ABDOMEN PELVIS W [...] Saeed Ortega MD 10/25/22 Final result Normal [facility] Lipaseon 10-25-2022 Lipase [Catalytic activity/Vol] 26 U/L Normal 13-60 [facility] Comment on above: Performed By: #### BMP, CDP, LIP, LIVP, TROPI #### [address] [address] [employer] Builder Apprentice: Kris Pardo MD Liver Profileon 10-25-2022 Albumin [Mass/Vol] 4.2 g/dL Normal 3.5-5.2 [facility] Comment on above: Performed By: #### BMP, CDP, LIP, LIVP, TROPI #### [address] [address] [employer] Body Builder Apprentice: Kris Pardo MD Albumin/Glob Ratio 1.7 Normal 1.0-2.5 [facility] Comment on above: Performed By: #### BMP, CDP, LIP, LIVP, TROPI #### [address] [place] [address] Truck Body Builder Apprentice: rKis Pardo MD Alkaline Phos 67 U/L Normal 35-104 [facility] Comment on above: Performed By: #### BMP, CDP, LIP, LIVP, TROPI #### [place] [address] [employer] Body Builder Apprentice: Kris Pardo MD ALT [Catalytic activity/Vol] 23 U/L Normal 5-33 [facility] Comment on above: Performed By: #### BMP, CDP, LIP, LIVP, TROPI #### [place] [address] [employer] Body Builder Apprentice: Kris Pardo MD AST [Catalytic activity/Vol] 21 U/L Normal <32 [facility] Comment on above: Performed By: #### BMP, CDP, LIP, LIVP, TROPI #### [place] [address] [employer] Builder Apprentice: Kris Pardo MD Bilirubin [Mass/Vol] 0.3 mg/dL Normal 0.3-1.2 [facility] Comment on above: Performed By: #### BMP, CDP, LIP, LIVP, TROPI #### [place] [address] [employer] Builder Apprentice: Kris Pardo MD Bilirubin, Indirect 0.2 mg/dL Normal 0.0-1.0 [facility] Comment on above: Performed By: #### BMP, CDP, LIP, LIVP, TROPI #### [place] [address] [employer] Builder Apprentice: Kris Pardo MD Bilirubin.indire ct [Mass/Vol] 0.1 mg/dL Normal <0.3 [facility] Comment on above: Performed By: #### BMP, CDP, LIP, LIVP, TROPI #### [place] [id number] [employer] Builder Apprentice: Kris Pardo MD Protein [Mass/Vol] 6.7 g/dL Normal 6.4-8.3 [facility] Comment on above: Performed By: #### BMP, CDP, LIP, LIVP, TROPI #### [place] [id number] [employer] Builder Apprentice: Kris Pardo MD Troponinon 10-25-2022 Troponin, High Sens 7 ng/L Normal 0-14 [facility] Comment on above: Result Comment: High Sensitivity Troponi n values cannot be compared with other Troponin methodologies. Performed By: #### B MP, CDP, LIP, LIVP, TROPI #### [place] [address] [employer] Builder Apprentice: Kris Pardo MD UA w/Reflex Cultureon 2022 Bilirubin, SemiQt,Ur Negative Normal NEG [facility] Comment on above: Performed By: #### TYS #### [place] [address] [employer] Body Builder Apprentice: Kris Pardo MD Blood, Urine MODERATE Abnormal NEG [facility] Comment on above: Performed By: #### TYS #### [place] [id number] [employer] Builder Apprentice: Kris Pardo MD Clarity (U) Clear Normal CLEAR [facility] Comment on above: Performed By: #### TYS #### [place] [id number] [employer] Builder Apprentice: Kris Pardo MD Color (U) Yellow Normal YEL [facility] Comment on above: Performed By: #### TYS #### [place] [address] [employer] Builder Apprentice: Kris Pardo MD Glucose Ql (U) Negative Normal NEG [facility] Comment on above: Performed By: #### TYS #### [place] [address] [employer] Body Builder Apprentice: Kris Pardo MD Ketones Ql (U) Negative Normal NEG [facility] Comment on above: Performed By: #### TYS #### [place] [address] [employer] Body Builder Apprentice: Kris Pardo MD Leukocyte esterase Test strip Ql (U) Negative Normal NEG [facility] Comment on above: Performed By: #### TYS #### [place] [address] [employer] Builder Apprentice: Kris Pardo MD Nitrite,Ur Negative Normal NEG [facility] Comment on above: Performed By: #### TYS #### [place] [address] [employer] Body Builder Apprentice: Kris Pardo MD PH,Ur 7.0 Normal 5.0-8.0 [facility] Comment on above: Performed By: #### TYS #### [place] [id number] [employer] Builder Apprentice: Kris Pardo MD Protein Ql (U) Negative Normal NEG [facility] Comment on above: Performed By: #### TYS #### [place] [id number] [employer] Builder Apprentice: Kris Pardo MD Spec. Winn,Ur 1.006 Normal 1.005-1.030 [facility] Comment on above: Performed By: #### TYS #### [place] [id number] [employer] Builder Apprentice: Kris Pardo MD Urobilinogen,Ur Normal Normal 0.0-1.0 [facility] Comment on above: Performed By: #### TYS #### [place] [id number] [employer] Body Builder Apprentice: Kris Pardo MD Urinalysis,Microon 3 Bacteria FEW Abnormal NONE [facility] Comment on above: Performed By: #### TYS #### [place] [address] [employer] Body Builder Apprentice: Kris Pardo MD Epithelial cells LM Ql (Urine sed) 0 TO 2 Normal 0-5 [facility] Comment on above: Performed By: #### TYS #### [place] [address] [employer] Builder Apprentice: Kris Pardo MD Other Observations Utilizing a urinalysis as the only screening method to exclude a potential Abnormal NREQ [facility] Comment on above: Result Comment: uropathogen can be unrel iable in many patient populations. Rapid screening tests are less sensitive than culture and if UTI is a clinical possibility, culture should be considered despite a negative urinalysis. Performed By: #### T YS #### [place] [id number] [employer] Apprentice: Kris Pardo MD Urine RBC's 20 TO 50 Normal 0-2 [facility] Comment on above: Performed By: #### TYS #### [address] [place] [address] Truck Body Builder Apprentice: Kris Pardo MD Urine WBC's 0 TO 2 Normal 0-5 [facility] Comment on above: Performed By: #### TYS #### [address] [id number] [employer] Apprentice: Kris Pardo MD Hgb/Hcton 10-21-2022 Hematocrit (Bld) [Volume fraction] 38.0 % Normal 36-46 [facility] Comment on above: Performed By: #### HH #### [place] [address] [employer] Builder Apprentice: Kris Pardo MD Hemoglobin (Bld) [Mass/Vol] 12.6 g/dL Normal 12.0-16.0 [facility] Comment on above: Performed By: #### HH #### [place] [address] [employer] Body Builder Apprentice: Kris Pardo MD OPERATIVE REPORTon OPERATIVE REPORT [address] [address] OPERATIVE REPORT PATIENT NAME: CHERYL HECTOR : 1965 MED REC NO: [id number] ROOM: ACCOUNT NO: [id number] ADMIT DATE: 10/21/2022 PROVIDER: Pete Rod DO [...] bladder was drained with Jarvis catheter. A [employer] uterine manipulator was placed without incident. The [...] the right upper quadrant as an accessory liaison inspection laboratory assistant port. The robot was docked with [...] The vaginal cuff was then closed with [id number] mucosal-mucosal Vicryl sutures incorporating the cuff angles [...] fascial closure (more content not included)... Normal [facility] Surgical Pathologyon 023 Surgical Pathology (NOTE) Path Number: [id number] -- Diagnosis -- A. UTERUS, CERVIX, AND [...] FALLOPIAN TUBES B: VAGINAL MUCOSA Gross Description Madisyn HECTOR, UTERUS, CERVIX AND BILATERAL FALLOPIAN TUBES [...] lumen lined by a meza-pink, soft mucosa. Internal Carver sections are submitted in c as follows: 1 anterior cervix 2 posterior cervix 3 endomyometrial polyps 4 anterior endomyometrium 5 posterior endomyometrium 6-7 intramural and subserosal nodules, sales representative consultant 8-9 one entire fallopian tube 10-12 one entire fallopian tube. B. CHERYL HECTOR VAGINAL MUCOSA Received in formalin are three fragments of meza-calvillo, wrinkled and ragged vaginal mucosa ranging from 1.6 to 7.5 cm. Sectioning reveals meza-pink, rubbery cut surfaces with no obvious masses or lesions identified. Internal Carver sections 1c. tm Microscopic Description A, B. Microscopic examination performed. Processing Lab: [address] [address] Interpretation Performed at [address] [address] SURGICAL PATHOLOGY CONSULTATION Patient Name: CHERYL HECTOR [facility] Rec: [id number] [facility] ANATOMIC PATHOLOGY [facility] [place], [place] [address] Normal [facility] Type + Screenon 10-21-2022 Type + Screen Sample Expiration 10/24/2022,2359 Arm Band Number [id number] ABO/Rh(D) O POSITIVE Antibody Screen NEGATIVE [facility] Comment on above: Performed By: #### TYS #### [address] [address] Truck Body Builder Apprentice: Kris Pardo MD Type + Screenon 10-14-2022 Type + Screen Sample Expiration 10/24/2022,2359 Arm Band Number [id number] ABO/Rh(D) O POSITIVE Antibody Screen NEGATIVE Normal [facility] Comment on above: Performed By: #### TYS #### [address] [address] Truck Body Builder Apprentice: Kris Pardo MD Office Visit (Cardiology)on 09-12-2022 Follow-up visit Diagnoses/Problems Assessed Takotsubo syndrome (429.83) (I51.81) Hyperlipidemia (272.4) (E78.5) Overweight with body mass index (BMI) of 28 to 28.9 in adult (278.02,V85.24) (E66.3,Z68.28) Never a smoker Pre-operative cardiovascular examination (V72.81) (Z01.810) Orders Hyperlipidemia Changed: From Z[facility]ia 10 [...] try to retrieve her recent labs from [facility] 4. The patient was advised to lose [...] Signs Recorded: 12Sep2022 12:04PM Heart Rate70, Apical Gmzlskio606, LUE, Sitting Klbiegpva35, LUE, Sitting Height5 ft 4 in Jojdax743 lb BMI Pwyzcpvjki44.67 kg/m2 BSA Calculated1.81 Tobacco Useb) No PHQ-2 #1. Over the last 2 weeks have you felt down, depressed or hopeless? (If yes, answer PHQ-9 below)No PHQ-2 #2. Over the last 2 weeks have you felt little interest or pleasure in doin (more content not included)... Normal [facility] Tobacco Screening.on 023 Adult depression screening assessment No [facility] [address] DO Work Phone: Fall risk assessment a) No falls within the last year [facility] k 600 DO Work Phone: Tobacco use status [facility] b) No [facility] 600 DO Work Phone: Ambulatory Visit Summaryon [...] Hypotension Kidney stone Plantar fasciitis Normal [facility] General Surgery Office/Clini c Noteon [...] SARS-CoV-2 (COVID-19) mRNA-1273 vaccine 04/21/2020 Recorded Normal [facility] Comment on above: Result Comment: Electronically Signed By : BRENDA SOTO, Cristo Arias\.br\Date and Time Signed: 06/05/22 16:56 EDT Pathology Noteon 06-03-2022 Pathology Note [id number]#1.00CD:127 [facility] Outside Colonoscopyon 2022 Outside Colonoscopy [id number]#1.00CD:127 [facility] Reminderson 05-30-2022 Reminders - From: Nedra Juares LPN To: GSN - Clinical; Sent: 05/30/2022 09:37:12 EST Show up: 05/01/2032 07:00:00 EST Subject: colonoscopy recall Due Date/Time: 05/29/2032 07:00:00 EST Reminder/Recall Patient is due for screening colonoscopy 05/29/2032. [facility] Facesheeton 05-07-2022 Facesheet [id number]#1.00CD:127 [facility] Consent for Procedure/Surger yon 05-06-2022 Consent for Procedure/Surger y [id number]#1.00CD:127 [facility] Ambulatory Visit Summaryon 0 05-03-2022 Ambulatory [...] Cholecystectomy Hypotension Kidney stone Plantar fasciitis Normal [facility] Physician Referralon 023 Physician Referral [id number]:127 Normal [facility] MM screening mammo BI w/CADo n 01-24-2022 MM screening mammo BI w/CAD [facility] [place] [address] Mammography Report Signed Patient: Cheryl Hecotr MR#: [id number] : 1965 Acct:[id number] Age/Sex: 56 / F ADM Date: 01/24/22 Loc: [place] Room: Type: [facility] Attending Dr: Jose Dangelo MD Copies to: [...] Kunal Osorio M.D.01/24/2022 4:44 PM Dictation Location: [facility] Transcribed By: [facility] 01/24/22 5113 Dictated By: Kunal Osorio II, MD 01/24/22 1640 Signed By: 01/24/22 2644 [facility] Tobacco Screening.on 022 Adult depression screening assessment No [facility] [place] [address] DO Work Phone: Tobacco use status [facility] b) No -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 [place] Recurrent microscopic hematuria Cystoscopy and renal US -- performed in reported normal Bladder prolapse PSHx: Prior mesh [...] breath CARDIOVASCULAR: Negative for chest pain or [place] GI: SEE HPI GENITOURINARY: SEE HPI ENDOCRINE:No [...] work-up including cysto and ANA performed by [facility] urologist in [phone] - Will send off UA with microscopy [...] Neri Sy MD, 09/10/2019 9:31 AM Signed [place] [facility] [place] Recurrent UTI Step Prevention Program: Takes 6 [...] such as miralax. We would suggest avoiding termite control servicer use of laxatives though and if you [...] Recurrent UTI [N39.0] Order(s):UA DIP, URINE (POC) [[id number]] Order #: [id number]. #:[id number] URINALYSIS WITH MICROSCOPIC [SQUAWMIC] Order #: [id number] FUTURE conjugated estrogens (PREMARIN) vaginal creamUse 0.5 g vaginally once daily.Disp: 42.5 gRfl: 3 URINALYSIS WITH MICROSCOPIC [SQUAWMIC] Order #: [id number]. #:[id number] Prescriptions as of 09/10/2019 Sig: ESTRADIOL 10 MCG VAGINAL TABL* Use 1 tablet vaginally. PREMARIN 0.625 MG/GRAM VAGINA* Use 0.5 g vaginally once joaquina* Problem List As Of Date: 09/10/2019 (None) Other instructions from your clinician: [facility] Recurrent UTI Step Prevention Program: Takes 6 [...] such as miralax. We would suggest avoiding termite control servicer use of laxatives though and if you would like a consult with gastroenterology for additional evaluation please ask. Along with these three strategies to prevent recurrent infections, your doctor may add additional strategies tailored to your situation. We are commonly asked whether taking cranberry extract will prevent urinary tract infections. Visit Notes: >> (Ian) IAN Colby Fri Sep 10, 2019 8:52 [...] by WILMER LOVELACE MD on 09/10/19 Normal [facility] PROGRESSon 09-10-2019 PROGRESS HNO ID: [id number] Author: Wilmer Lovelace Service: ? 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 [place] Recurrent microscopic hematuria Cystoscopy and renal US [...] breath CARDIOVASCULAR: Negative for chest pain or [place] GI: SEE HPI GENITOURINARY: SEE HPI ENDOCRINE:No [...] work-up including cysto and ANA performed by [facility] urologist in [phone] - Will send off UA with microscopy [...] Medicine and Reconstructive Surgery Electronically signed Normal [facility] Urinalysis with Microscopico n 09-10-2019 Bilirubin, Urine Negative Normal [facility] Comment on above: Performed By: #### UAWMIC #### [facility] [place] [phone] Clarity (U) Clear Normal Clear [facility] Comment on above: Performed By: #### UAWMIC #### [facility] [facility] [place] [phone] Color (U) Colorless Critically abnormal Yellow [facility] Comment on above: Performed By: #### UAWMIC #### [facility] [facility] [place] [phone] Comments SEE COMMENT Normal [facility] Comment on above: Result Comment: N/A Performed By: #### U AWMIC #### [facility] [facility] [place] [phone] Glucose Ql (U) Negative Normal Negative [facility] Comment on above: Performed By: #### UAWMIC #### [facility] [employer] [address] [place] [phone] Hemoglobin/Blood ,Ur 1+ Critically abnormal Negative [facility] Comment on above: Performed By: #### UAWMIC #### [facility] [facility] [place] [phone] Ketones Ql (U) Negative Normal Negative [facility] Comment on above: Performed By: #### UAWMIC #### [facility] [address] [place] [phone] Leukest Negative Normal Negative [facility] Comment on above: Performed By: #### UAWMIC #### [place] [id number] [place] [address] Nitrite Ql (U) Negative Normal Negative [facility] Comment on above: Performed By: #### UAWMIC #### [place] [phone] pH (Bld) 6.0 Normal 5.0-8.0 [facility] Comment on above: Performed By: #### UAWMIC #### [place] [phone] Protein (U) [Mass/Vol] Negative Normal Negative [facility] Comment on above: Performed By: #### UAWMIC #### [place] [phone] RBC (U) [#/Vol] 0-3 Normal 0-3 [facility] Comment on above: Performed By: #### UAWMIC #### [place] [phone] Specific Winn, Ur 1.006 Normal 1.005-1.030 [facility] Comment on above: Performed By: #### UAWMIC #### [place] [phone] Urine Noman Comment SEE COMMENT Normal [facility] Comment on above: Result Comment: N/A Performed By: #### U AWMIC #### [place] [phone] Urobilinogen Qn (U) Negative Normal Negative [facility] Comment on above: Performed By: #### UAWMIC #### [place] [phone] WBC (Bld) [#/Vol] 0-5 Normal 0-5 [facility] Comment on above: Performed By: #### UAWMIC #### [facility] [address] [place], [place] [address] Vital Signs Date Time Vital Sign Value Performing Clinician Facility 09-12-2022 12:04-0400 Body height 162.56 cm Janna E Mast Work Phone: [facility] [employer] [address] DO Work Phone: 09-12-2022 12:04-0400 Body mass index (BMI) [Ratio] 28.67 kg/m2 Janna E Mast Work Phone: [facility] [employer] [address] DO Work Phone: 09-12-2022 12:04-0400 Body surface area Derived from formula 1.81 m2 Janna E Mast Work Phone: [facility] [employer] [address] DO Work Phone: 09-12-2022 12:04-0400 Body weight 75.75 kg Janna E Mast Work Phone: [facility] [employer] 600 DO Work Phone: 09-12-2022 12:04-0400 Diastolic blood pressure 70 mm[Hg] Janna E Mast Work Phone: [facility] [employer] [address] DO Work Phone: 09-12-2022 12:04-0400 Heart rate 70 /min Janna E Mast Work Phone: [facility] [address] DO Work Phone: 09-12-2022 12:04-0400 Systolic blood pressure 104 mm[Hg] Janna E Mast Work Phone: [facility] 600 DO Work Phone: 05-03-2022 15:33-0500 Blood Pressure Location Cristo CROCKER [facility] [place] 05-03-2022 15:33-0500 Diastolic blood pressure 96 mm[Hg] Cristo CROCKER [facility] [place] 05-03-2022 15:33-0500 Heart rate 70 /min Cristo ELLISONL [facility] Surgery [place] 05-03-2022 15:33-0500 Respiratory rate 16 /min Cristo CROCKER [facility] [place] 05-03-2022 15:33-0500 Systolic blood pressure 134 mm[Hg] Cristo ELLISONL [facility] [place] 05-22-2021 16:14-0500 Diastolic blood pressure 85 mm[Hg] Janna E Mast Work Phone: [facility] DO Work Phone: 05-22-2021 16:14-0500 Systolic blood pressure 122 mm[Hg] Janna E Mast Work Phone: [facility] [address] [employer] 250 DO Work Phone: 05-22-2021 15:57-0500 Body height 162.56 cm Janna E Mast Work Phone: [facility] [address] [employer] 250 DO Work Phone: 05-22-2021 15:57-0500 Body mass index (BMI) [Ratio] 28.32 kg/m2 Janna E Mast Work Phone: [facility] 250 DO Work Phone: 05-22-2021 15:57-0500 Body surface area Derived from formula 1.8 m2 Janna E Mast Work Phone: [facility] 250 DO Work Phone: 05-22-2021 15:57-0500 Body weight 74.84 kg Janna E Mast Work Phone: [facility] 250 DO Work Phone: 05-22-2021 15:57-0500 Diastolic blood pressure 100 mm[Hg] Janna E Mast Work Phone: [facility] 250 DO Work Phone: 05-22-2021 15:57-0500 Heart rate 80 /min Janna E Mast Work Phone: [facility] 250 DO Work Phone: 05-22-2021 15:57-0500 Systolic blood pressure 140 mm[Hg] Janna E Mast Work Phone: [facility] 250 DO Work Phone: 05-16-2021 10:56-0500 102.2 1 Janna E Mast Work Phone: [facility] 250 DO Work Phone: Comment on above: FSLDL Encounters Encounter Date Encounter Type Care Provider Facility Start: 10-25-2022 End: 10-25-2022 Emergency department patient visit FAIZAN Us~[id number] PAMELLA MOODY [facility] Start: 10-21-2022 End: 10-21-2022 ambulatory PETE ROD [facility] Start: 10-14-2022 End: 10-15-2022 ambulatory SERA LAMBERT [facility] Start: 09-12-[address] Vamsi Serrano Facility: Start: 09-12-2022 Patient encounter procedure Janna E Mast Work Phone: [facility] 600 DO Work Phone: Start: 06-05-2022 End: 06-06-2022 ambulatory Cristo CROCKER Facility: [facility] Start: 06-05-2022 End: 06-05-2022 Patient encounter procedure Cristo CROCKER General Surgery Nill/Said [place] Start: 06-03-2022 Telephone encounter Janna E Mas t Work Phone: [facility] 600 DO Work Phone: Start: 05-29-2022 End: 05-30-[address] CRISTO CROCKER . Facility: Start: 05-03-2022 End: 05-04-2022 [facility] Start: 05-03-2022 End: 05-03-2022 Patient encounter procedure Cristo CROCKER General Surgery [facility] Start: 04-25-2022 ambulatory Cristo CROCKER Facility :[facility] Start: 01-24-2022 End: 01-24-2022 ambulatory Sera Lambert Facility:[facility] Start: 05-22-2021 Office outpatient vi sit 15 minutes Janna E Mast Work Phone: [facility] 250 DO Work Phone: Start: 07-02-2017 Ambulatory VAMSI SERRANO Faci lity:[id number] Patient encounter status Janna E Mast Work Phone: [facility] 600 DO Work Phone: Procedures Date Procedure Procedure Detail Performing Clinician Start: 05-29-2022 Colonoscopy Cristo CROCKER Start: 05-29-2022 Esophagogastroduodenoscopy Critso CROCKER Start: 09-12-2017 Loop electrosurgical excision procedure Cristo CROCKER Comment on above: Leep cone excision and endocervical cure ttage Start: 12-29-2014 Cystourethroscopy with dilation of urethral stricture Cristo CROCKER Comment on above: also 10/05/2013 Start: 02-21-2011 Cystourethroscopy with dilation of urethral stricture Cristo CROCKER Cardiac catheterisation Иван ael NILL Cardiac catheterization [...] Vamsi Serrano, Status: Pen, Time: 10:10 AM [facility] 600 DO Work Phone: Start: 10-08-2022 FUV, Provider: Vamsi Serrano, Status: Pen, Time: 2:00 PM FUV, Provider: Vamsi Serrano, Status: Pen, Time: 2:00 PM [facility] 600 DO Work Phone: Start: 06-04-2022 FUV, Provider: Vamsi Serrano, Status: Pen, Time: 3:50 PM FUV, Provider: Vamsi Serrano, Status: Pen, Time: 3:[address] [facility] 250 DO Work Phone: Immunizations Immunization Date Immunization Notes Care Provider Tracy espino 01-23-2022 influenza, seasonal, injectable Janna E Mast Work Phone: [facility] 600 DO Work Phone: 01-22-2022 influenza virus vacc ine, unspecified formulation Cristo ELLISONL [facility] [place] 03-19-2021 Moderna COVID-19 Vac cine 100 MCG/0.5ML Intramuscular Suspension Janna E Mast Work Phone: [facility] [place] 05-19-2020 Moderna COVID-19 Vac cine 100 MCG/0.5ML Intramuscular Suspension Janna E Mast Work Phone: [facility] [place] 04-21-2020 Moderna COVID-19 Vac cine 100 MCG/0.5ML Intramuscular Suspension Janna E Mast Work Phone: [facility] 01-18-2020 influenza virus vacc ine, unspecified formulation Janna E Mast Work Phone: [facility] 250 DO Work Phone: 12-23-2019 influenza virus vacc ine, unspecified formulation Janna E Mast Work Phone: [facility] 250 DO Work Phone: 01-06-2018 influenza virus vacc ine, unspecified formulation Janna E Mast Work Phone: [facility] 250 DO Work Phone: 12-22-2016 influenza virus vacc ine, unspecified formulation Janna E Mast Work Phone: [facility] 250 DO Work Phone: 01-21-2002 hepatitis B vaccine, adult dosage Janna E Mast Work Phone: [facility] 250 DO Work Phone: Payers Date Payer Category Payer Self-pay 1965 Unknown [id number] 1965 Unknown [id number] 1965 Unknown [id number] 1963 Unknown [id number] 1963 Unknown [id number] 1963 Unknown [id number] 1965 Unknown [id number] 1963 Unknown [id number] 1965 Unknown [id number] 1959 Unknown [id number] Unknown [facility] Unknown [id number] Social History Date Type Detail Facility Social alcohol use Social alcohol use - [facility] 250 DO Work Phone: Start: 05-03-2022 Tobacco smoking status Never s moked tobacco (finding) [facility] Tobacco smoking status Never Gener al Surgery [place] Sex Assigned At Female [facility] Functional Status Date Assessment Result Facility 05-03-2022 Functional Status N/A General House rgery [place] Clinical Note 05-29-2022 Note Date & Type [...] (12/29/2014), Cystourethroscopy with (more content not included)... [facility] Comment on above: Result Comment: Elec [...] exercise.5. Reviewed with her her recent lab -[facility] 250 DO Work Phone: History of Present [...] try to retrieve her recent labs from [place]. The patient was advised to lose weight and exercise.5. I reviewed with patient preoperative cardiac risk for her upcoming hysterectomy. I believe her operative risk is acceptable and she can proceed she was given permission to hold aspirin for 7 days prior to surgery [facility] 600 DO Work Phone: Hospital Discharge instructions Note Date & Type Note Facility Hospital Discharge instructions No data available for this section General [facility] [place] Progress note Note Date & Type Note Facility Progress note No data available for this section General [facility] [place] Summary Purpose Family History No Family History [...] section and content) DATE CREATED AUTHOR 09/11/2017 [facility] DATE CREATED AUTHOR AUTHOR'S ORGANIZ ATION 04/15/2020 [facility] DATE CREATED AUTHOR AUTHOR'S ORGANIZ ATION 02/06/2022 [facility] DATE CREATED AUTHOR AUTHOR'S ORGANIZ ATION 06/03/2022 [facility] DATE CREATED AUTHOR AUTHOR'S ORGANIZ ATION 06/21/2022 [facility] DATE CREATED AUTHOR AUTHOR'S ORGANIZ ATION 09/13/2022 [facility] DATE CREATED AUTHOR AUTHOR'S ORGANIZ ATION 09/13/2022 [employer] DATE CREATED AUTHOR AUTHOR'S ORGANIZ ATION 11/08/2022 [facility] Patient Care team informatio n (unrecognized section and content) Personnel Name: Sera Lambert MD Address: Address: [address] [place] [address] Personnel Name: Sera Lambert MD Address: Address: [address] [place] [address] FOR RECORDS PERTAINING TO PATIENTS WHO ARE [...] BE BASED ON THE PRIMARY CLINICAL RECORDS. [facility] [employer] [facility]. provides no warranty or guarantee of the accuracy or completeness of information in this document.
== END 2023-08-04 14:49 | disposition home or self-care (01) ==
LOC: MRI 14:48
PROVIDERS: PCP Family Medicine; Visit Provider Family Medicine
DX: G43.909 Migraine, unspecified, not intractable, without status migrainosus (principal); Q27.30 Arteriovenous malformation, site unspecified
CPT/HCPCS: 70551

== ENCOUNTER 2023-08-19 07:18 | Outpatient (OUT) | payer OTHER, SELFPAY ==
--- OUTSIDE RECORDS SUMMARY | 2023-08-19 07:21 | XMS_ITS | CCD ---
Author Organization [facility] Care Team Providers Care Dough Braker Name Role Phone VAMSI SERRANO Unavailable Unavailable MAST, JANNA Unavailable Unavailable Mast, Janna E Unavailable Unavailable [...] Lambert Referring Unavailable Sera Lambert Referring Unavailable Cristo CROCKER Attending Unavailable Cristo CROCKER Attending Unavailable Cristo CROCKER Attending Unavailable Traboulsven, Dr. Noel Referring Unavaila ble Traboulssi, Dr. Noel Attending Unavaila ble Mast, Dr. Janna Marti Primary Care Unavailabl e PETE ROD Admitting Unavailable PETE ROD Attending Unavailable SERA LAMBERT Primary Care Unavailable FAIZAN SNYDER~[id number] Attendin g SERA Evans Primary Care Unavailable SERA LAMBERT Primary Care Unavailable PETE ROD Referring Unavailable Sera Lambert MD Primary Care Provider [phone] SERA LAMBERT Primary Care Unavailable DEIRDRE MONTALVO Attending Unavailable Allergies Allergy Classification Reported Allergen(s) Allergy Type Date of Onset Reaction(s) Facility (9 sources) Amoxicillin; Translations: [amoxicillin] Drug Allergy 09-24-19 12 Weal (disorder), Unknown [facility] [place] (3 sources) atorvastatin; Translations: [atorvastatin] Drug Allergy [facility] y 250 DO Work Phone: (2 sources) ezetimibe; Translations: [Zetia] Drug Allergy [facility] y 250 DO Work Phone: (4 sources) Hmg-Coa Reductase Inhibitors (Statins); Translations: [Statins] Allergy to drug (finding) [facility] Rep[facility] (3 sources) oxyCODONE; Translations: [oxycodone] Drug Allergy [facility] y 250 DO Work Phone: (3 sources) Pravastatin; Translations: [Pravastatin Sodium TABS] Drug Allergy [facility] y 250 DO Work Phone: (1 source) Amoxicillin Drug Allergy 02-22-[address] [facility] Repository (1 source) Aspirin Drug Allergy 02-22-[address] [facility] Repository (3 sources) Codeine; Translations: [codeine] Drug Allergy 09-24-[address] [facility] Repository (1 source) oxyCODONE Drug Allergy 02-22-[address] [facility] Rep[facility] (3 sources) Acetaminophen / oxyCODONE; Translations: [acetaminophen-oxy codone] Drug Allergy Projectile vomiting (disorder) [facility] [place] (5 sources) Aspirin / oxyCODONE; Translations: [aspirin-oxycodone ] Drug Allergy 09-24-19 12 Projectile vomiting (disorder), Unknown [facility] [place] (4 sources) Codeine; Translations: [codeine] Drug Allergy 09-24-19 12 Edema (finding), Unknown [facility] [place] (2 sources) HMG-CoA reductase inhibitor; Translations: [statins] Drug allergy Unknown (qualifier value) [facility] [place] (4 sources) Latex; Translations: [latex] Allergy to substance 12-23-19 15 Redness, Itching [facility] (3 sources) NITROFURANTOIN, MACROCRYSTALS / Nitrofurantoin, Monohydrate; Translations: [nitrofurantoin] Drug Allergy Joint pain (finding), Cutaneous eruption (morphologic abnormality) [facility] (1 source) Acetaminophen / oxyCODONE Drug Allergy 05-13-19 23 [facility] Repository (1 source) Adhesive agent Drug allergy (disorder) 12-23-19 15 [facility] (1 source) Amoxicillin Drug Allergy 07-28-19 13 [facility] (1 source) black walnut pollen extract Drug Allergy 05-13-19 23 [facility] (1 source) Codeine Drug Allergy 07-28-19 13 [facility] (1 source) Nitrofurantoin Drug Allergy 12-23-19 15 [facility] (1 source) bandaids; Translations: [bandaids] Propensity to adverse reactions (disorder) [facility] Rep[facility] (2 sources) Ciprofloxacin Drug Allergy 05-08-19 24 Myalgia, Rash [facility] (1 source) OXYCODONE-ASPIRIN; Translations: [OXYCODONE-ASPIRIN ] Propensity to adverse reactions to drug (disorder) 09-24-[address] [facility] Repository Medications Current Medications Medication Drug [...] Refills(s) 0 Start Date: 04/29/22 Status: Ordered lansoprazole 30 mg delayed release oral capsule (2 sources) Proton Pump Inhibitor Start: 05-23-2023 lansoprazole (PREVACID) 30 mg capsule 12 hr loratadine 5 mg / pseudoephedrine sulfate 120 mg extended release oral tablet (2 sources) alpha-Adrenergic Agonist Start: 08-13-2023 take 1 tablet by mouth every twelve hours as needed loratadine-pseudo ephedrine ER (CLARITIN-D 12 HOUR) 5-120 mg per tablet Take 1 tablet by mouth two times a day as needed. for allergy symptoms. 0 08/13/2023 Active pantoprazole 40 mg delayed release oral tablet (2 sources) Proton Pump Inhibitor Start: 07-18-[address] (PROTONIX) 40 mg tablet Miralax (2 sources) Osmotic Laxative Start: 05-03-2022 take 17 g by mouth once daily MiraLax 17 gm, Oral, Daily, Refill(s) 0 Start Date: 05/03/22 Status: Ordered Completed/Discontinued Medications Medication Drug Class(es) Dates Sig (Normalized) Sig (Original) estradiol 0.01 mg vaginal insert (1 source) Estrogen Start: 09-24-2011 End: 08-13-2023 Estradiol (VAGIFEM) 10 mcg vaginal tablet Use 1 tablet vaginally. 0 09/24/2011 08/13/2023 Discontinued estrogens, conjugated (retirement) 0.625 mg/ml vaginal cream (1 source) Estrogen Start: 09-10-2019 End: 08-13-2023 conjugated estrogens (PREMARIN) vaginal cream Use 0.5 g vaginally once daily. 42.5 g 3 09/10/2019 08/13/2023 Discontinued loratadine 10 mg oral tablet (3 sources) take 1 tablet by mouth once daily Loratadine 10 MG Oral Tablet [...] ischemic myocardial dysfunction] Onset: 8 09-02-2017 Chronic Diabetes mellitus without complication (3 sources) Prediabetes; Translations: [Prediabetes] Onset: 4 08-13-2023 Episodic Disorders of lipid metabolism (3 sources) Hyperlipidemia; Translations: [Other and unspecified hyperlipidemia] Chronic Diverticulosis and diverticulitis (3 sources) Diverticulosis of large intestine without perforation or abscess without bleeding; Translations: [Diverticula of intestine] Onset: 3 Chronic Esophageal disorders (6 sources) Gastroesophageal reflux disease without esophagitis; Translations: [Gastro-esophageal reflux disease without esophagitis] Onset: 3 Chronic Essential hypertension (1 source) Hypertensive disorder; Translations: [Essential (primary) hypertension] 08-13-2023 Chronic Gastritis and duodenitis (1 source) Unspecified [...] UNSPECIFIED] Onset: 3 Other aftercare (1 source) 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; Translations: [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 CURRENT USE OF ASPIRIN] Onset: 3 Episodic Other aftercare (1 source) 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 (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) drug therapy; Translations: [OTH CARE HOME CURRENT DRUG THERAPY] Onset: 3 Episodic Other [...] than 30; Translations: [Overweight] 05-03-2022 Episodic Other screening for suspected conditions (not mental disorders or infectious disease) (1 source) Decreased cortisol level; Translations: [Other specified abnormal findings of blood chemistry] 08-13-2023 Episodic Other upper respiratory disease (2 sources) [...] Test Name Value Interpretation Reference Range Facility CNOVon 08-13-2023 CNOV Office Visit (ENDOAV ) CHERYL HECTOR ([id number]) 1965 F Date Time Provider Department 08/13/23 1:00 PM DEIRDRE MONTALVO During your visit today, we recorded the following information about you: Pulse Blood pressure Weight Height 68/minute 150/96 78.7 kg 1.626 m Deirdre Montalvo MD 08/13/2023 7:10 PM Signed HISTORY OF PRESENT ILLNESS: Cheryl Hector is presenting for adrenal concern Requesting provider: None, self-referred. Patient has concern about adrenal insufficiency because of fatigue and puffiness around the eyes for years. She felt better when she received dexamethasone for COVID 19 infection in Apr, 2023. Patient reports testing for cortisol levels twice in Apr, 2023 and were low. Patient has excessive daytime sleepiness, she has to take a nap in the afternoon to help her get through her day. Patient sleeps 7 hours a night, disturbed sleep and her mentioned to her that she has problem with snoring and that she stops breathing during the night. Patient is going to have sleep study. Patient reports prior bleed in brain on MRI done on August 04, 2023 (record is not available) because of severe migraine headaches. She is going to have a follow up MRI. Patient gained about 10 lb over the past year. Review of Systems Constitutional: Positive for fatigue and night sweats. Negative for recent unintentional weight change. HENT: Positive for postnasal drip. Negative for trouble swallowing and thyroid pain (lower neck). Eyes: Negative for visual disturbance. Respiratory: Negative for difficulty breathing. Cardiovascular: Negative for chest pain, leg swelling and claudication. Gastrointestinal: Positive for heartburn. Negative for nausea, vomiting, abdominal pain, diarrhea and constipation. Genitourinary: Positive for urgency and amenorrhea. Negative for frequent urination and slower stream. Musculoskeletal: Negative for myalgias, muscle weakness and bone pain. Skin: Negative for skin color change. Neurological: Positive for headaches. Negative for dizziness and numbness. Endo/Heme/Allergies: Positive for heat intolerance when others are comfortable and changes in body hair. Negative for polydipsia, cold intolerance when others are comfortable, hot flashes and flushing. Answers submitted by the patient for this visit: Endocrine Review of Systems (Submitted on 08/06/2023) Blood Clots?: No Joint pain or stiffness: Yes PAST MEDICAL HISTORY Diagnosis Date Cardiomyopathy (HCC) Cervical stenosis of spine DJD (degenerative joint disease), lumbar GERD (gastroesophageal reflux disease) Hiatal hernia Kidney stone PAST SURGICAL HISTORY Procedure Laterality Date PAST SURGICAL HISTORY OF Partial hysterectomy with rectocele and cystocele repair Patient takes either Prevacid or Protonix (by rotation). Current Medications 08/13/2023 OTHER Medication Dosage Pharm Subclass lansoprazole (PREVACID) 30 mg capsule Gastric Acid Secretion [employer] - Proton Pump Inhibitors (PPIs) loratadine-pseudoephedrine ER (CLARITIN-D 12 HOUR) 5-120 mg per tablet Take 1 tablet by mouth two times a day as needed. for allergy symptoms. 2nd Generation Antihistamine-Decongestant Combinations pantoprazole DR (PROTONIX) 40 mg tablet Gastric Acid Secretion [employer] - Proton Pump Inhibitors (PPIs) ALLERGIES Allergen Reactions Amoxicillin Unknown Ciprofloxacin Myalgia, Rash Codeine Unknown Oxycodone-Aspirin Unknown FAMILY HISTORY Problem Relation Age of Onset Diabetes Mother Coronary Artery Disease Mother Thyroid Father Questionable history Social History Tobacco Use Smoking status: Never Passive exposure: Never Smokeless tobacco: Never Substance Use Topics Alcohol use: Yes Comment: Once a week or less. Drug use: Never PHYSICAL EXAMINATION: BP 150/96 Pulse 68 Ht 162.6 cm (5' 4 ) Wt 78.7 kg (173 lb 8 oz) SpO2 100% BMI 29.78 kg/m? HEENT: no pallor or jaundice, no exophthalmous or lid lag Neck: no thyromegaly, no adenopathy, no thyroid or carotid bruit. Heart: RRR no murmur or gallop Lungs: CTA AND P Abd: Soft nontender with no organomegaly Ext: no edema Deep tendon reflexes are + 2 with normal relaxation phase and no tremor in upper extremities. Labs Apr, 2023: AM cortisol 5.9 ug/dl ACTH 12.1 Creatinine 0.76 mg/dl Labs Jan, 2023: Glucose, fasting 105 mg/dl. A1c 6.1% Thyroid hormone levels are normal. Rest of CMP were normal. IMPRESSION AND PLAN: 1. Low cortisol level: measurements seem to had been done closer to her treatment with dexamethasone. Clinically, she has no symptoms to suggest adrenal insufficiency. Rather, she has uncontrolled hypertension and pre-diabetes. Also, she has gained weight over the past year. Improvement of symptoms on dexamethasone is not specific. Obtain early AM (8:00 AM) ACTH, cortisol and free cortis (more content not included)... Normal [facility] Basic Metabolic Profon 10-25 Anion gap [Moles/Vol] 10 mmol/L Normal 9-17 [facility] Comment on above: Performed By: #### BMP, CDP, LIP, LIVP, TROPI #### [place] [address] Senior Internal Auditor: Kris Pardo MD Calcium [Mass/Vol] 9.3 mg/dL Normal 8.6-10.4 [facility] Comment on above: Performed By: #### BMP, CDP, LIP, LIVP, TROPI #### [place] [address] Senior Internal Auditor: Kris Pardo MD Chloride [Moles/Vol] 101 mmol/L Normal 98-107 [facility] Comment on above: Performed By: #### BMP, CDP, LIP, LIVP, TROPI #### [place] [address] Senior Internal Auditor: Kris Pardo MD CO2 [Moles/Vol] 28 mmol/L Normal 20-31 [facility] Comment on above: Performed By: #### BMP, CDP, LIP, LIVP, TROPI #### [place] [address] Senior Internal Auditor: Kris Pardo MD Creatinine [Mass/Vol] 0.6 mg/dL Normal 0.5-0.9 [facility] Comment on above: Performed By: #### BMP, CDP, LIP, LIVP, TROPI #### [place] [id number] Senior Internal Auditor: Kris Pardo MD GFR/1.73 sq M.predicted among non-blacks MDRD (S/P/Bld) [Vol rate/Area] mL/min/{1.73_m2} Normal >60 [facility] Comment on above: Result Comment: These [...] B MP, CDP, LIP, LIVP, TROPI #### [place] [address] Senior Internal Auditor: Kris Pardo MD Glucose [Mass/Vol] 102 mg/dL High 70-99 [facility] Comment on above: Performed By: #### BMP, CDP, LIP, LIVP, TROPI #### [place] [address] Senior Internal Auditor: Kris Pardo MD Potassium [Moles/Vol] 4.3 mmol/L Normal 3.7-5.3 [facility] Comment on above: Performed By: #### BMP, CDP, LIP, LIVP, TROPI #### [place] [id number] Senior Internal Auditor: Kris Pardo MD Sodium [Moles/Vol] 139 mmol/L Normal 135-144 [facility] Comment on above: Performed By: #### BMP, CDP, LIP, LIVP, TROPI #### [place] [id number] Senior Internal Auditor: Kris Pardo MD Urea nitrogen [Mass/Vol] 13 mg/dL Normal 6-20 [facility] Comment on above: Performed By: #### BMP, CDP, LIP, LIVP, TROPI #### [place] [address] Senior Internal Auditor: Kris Pardo MD CBC with Diffon 10-25-2022 Abs. Basophil 0.10 k/uL Normal 0.0-0.2 [facility] Comment on above: Performed By: #### BMP, CDP, LIP, LIVP, TROPI #### [place] [address] Senior Internal Auditor: Kris Pardo MD Abs.Neutrophil (Seg) 7.10 k/uL Normal 1.8-7.7 [facility] Comment on above: Performed By: #### BMP, CDP, LIP, LIVP, TROPI #### [place] [address] Senior Internal Auditor: Kris Pardo MD Basophils/100 WBC (Bld) 1 % Normal 0-2 [facility] Comment on above: Performed By: #### BMP, CDP, LIP, LIVP, TROPI #### [place] [address] Senior Internal Auditor: Kris Pardo MD Eosinophils (Bld) [#/Vol] 0.50 10*3/uL High 0.0-0.4 [facility] Comment on above: Performed By: #### BMP, CDP, LIP, LIVP, TROPI #### [place] [address] Senior Internal Auditor: Kris Pardo MD Eosinophils/100 WBC (Bld) 5 % High 1-4 [facility] Comment on above: Performed By: #### BMP, CDP, LIP, LIVP, TROPI #### [place] [address] Senior Internal Auditor: Kris Pardo MD Erythrocyte distribution width (RBC) [Ratio] 12.9 % Normal 12.5-15.4 [facility] Comment on above: Performed By: #### BMP, CDP, LIP, LIVP, TROPI #### [place] [address] Senior Internal Auditor: Kris Pardo MD Hematocrit (Bld) [Volume fraction] 36.9 % Normal 36-46 [facility] Comment on above: Performed By: #### BMP, CDP, LIP, LIVP, TROPI #### [place] [address] Senior Internal Auditor: Kris Pardo MD Hemoglobin (Bld) [Mass/Vol] 12.5 g/dL Normal 12.0-16.0 [facility] Comment on above: Performed By: #### BMP, CDP, LIP, LIVP, TROPI #### [place] [address] Senior Internal Auditor: Kris Pardo MD Lymphocytes (Bld) [#/Vol] 1.20 10*3/uL Normal 1.0-4.8 [facility] Comment on above: Performed By: #### BMP, CDP, LIP, LIVP, TROPI #### [place] [address] Senior Internal Auditor: Kris Pardo MD Lymphocytes/100 WBC (Bld) 13 % Low 24-44 [facility] Comment on above: Performed By: #### BMP, CDP, LIP, LIVP, TROPI #### [place] [address] [place], [place] [id number] Senior Internal Auditor: Kris Pardo MD MCH (RBC) [Entitic mass] 29.9 pg Normal 26-34 [facility] Comment on above: Performed By: #### BMP, CDP, LIP, LIVP, TROPI #### [place] [phone] Senior Internal Auditor: Kris Pardo MD MCHC (RBC) [Mass/Vol] 33.9 g/dL Normal 31-37 [facility] Comment on above: Performed By: #### BMP, CDP, LIP, LIVP, TROPI #### [place] [address] Senior Internal Auditor: Kris Pardo MD MCV (RBC) [Entitic vol] 88.0 fL Normal 80-100 [facility] Comment on above: Performed By: #### BMP, CDP, LIP, LIVP, TROPI #### [place] [address] Senior Internal Auditor: Kris Pardo MD Monocytes (Bld) [#/Vol] 0.60 10*3/uL Normal 0.1-1.2 [facility] Comment on above: Performed By: #### BMP, CDP, LIP, LIVP, TROPI #### [address] [address] Senior Internal Auditor: Kris Pardo MD Monocytes/100 WBC (Bld) 6 % Normal 2-11 [facility] Comment on above: Performed By: #### BMP, CDP, LIP, LIVP, TROPI #### [place] [phone] Senior Internal Auditor: Kris Pardo MD Neutrophil (Seg) 75 % High 36-66 [facility] Comment on above: Performed By: #### BMP, CDP, LIP, LIVP, TROPI #### [place] [address] Senior Internal Auditor: Kris Pardo MD Platelet mean volume (Bld) [Entitic vol] 7.6 fL Normal 6.0-12.0 [facility] Comment on above: Performed By: #### BMP, CDP, LIP, LIVP, TROPI #### [place] [address] Senior Internal Auditor: Kris Pardo MD Platelets (Bld) [#/Vol] 287 10*3/uL Normal 140-450 [facility] Comment on above: Performed By: #### BMP, CDP, LIP, LIVP, TROPI #### [place] [address] Senior Internal Auditor: Kris Pardo MD RBC (Bld) [#/Vol] 4.20 10*6/uL Normal 4.0-5.2 [facility] Comment on above: Performed By: #### BMP, CDP, LIP, LIVP, TROPI #### [place] [address] Senior Internal Auditor: Kris Pardo MD WBC (Bld) [#/Vol] 9.4 10*3/uL Normal 3.5-11.0 [facility] Comment on above: Performed By: #### BMP, CDP, LIP, LIVP, TROPI #### [place] [address] Senior Internal Auditor: Kris Pardo MD CT ABDOMEN PELVIS W [...] Saeed Ortega MD 10/25/[address] [facility] Lipaseon 10-25-2022 Lipase [Catalytic activity/Vol] 26 U/L Normal 13-60 [facility] Comment on above: Performed By: #### BMP, CDP, LIP, LIVP, TROPI #### [address] [address] Senior Internal Auditor: Kris Pardo MD Liver Profileon 10-25-2022 Albumin [Mass/Vol] 4.2 g/dL Normal 3.5-5.2 [facility] Comment on above: Performed By: #### BMP, CDP, LIP, LIVP, TROPI #### [place] [address] Senior Internal Auditor: Kris Pardo MD Albumin/Glob Ratio 1.7 Normal 1.0-2.5 [facility] Comment on above: Performed By: #### BMP, CDP, LIP, LIVP, TROPI #### [place] [address] Senior Internal Auditor: Kris Pardo MD Alkaline Phos 67 U/L Normal 35-104 [facility] Comment on above: Performed By: #### BMP, CDP, LIP, LIVP, TROPI #### [place] [address] Senior Internal Auditor: Kris Pardo MD ALT [Catalytic activity/Vol] 23 U/L Normal 5-33 [facility] Comment on above: Performed By: #### BMP, CDP, LIP, LIVP, TROPI #### [place] [address] Senior Internal Auditor: Kris Pardo MD AST [Catalytic activity/Vol] 21 U/L Normal <32 [facility] Comment on above: Performed By: #### BMP, CDP, LIP, LIVP, TROPI #### [place] [address] Senior Internal Auditor: Kris Pardo MD Bilirubin [Mass/Vol] 0.3 mg/dL Normal 0.3-1.2 [facility] Comment on above: Performed By: #### BMP, CDP, LIP, LIVP, TROPI #### [address] [place] [address] Senior Internal Auditor: Kris Pardo MD Bilirubin, Indirect 0.2 mg/dL Normal 0.0-1.0 [facility] Comment on above: Performed By: #### BMP, CDP, LIP, LIVP, TROPI #### [place] [address] Senior Internal Auditor: Kris Pardo MD Bilirubin.indire ct [Mass/Vol] 0.1 mg/dL Normal <0.3 [facility] Comment on above: Performed By: #### BMP, CDP, LIP, LIVP, TROPI #### [place] [address] Senior Internal Auditor: Kris Pardo MD Protein [Mass/Vol] 6.7 g/dL Normal 6.4-8.3 [facility] Comment on above: Performed By: #### BMP, CDP, LIP, LIVP, TROPI #### [place] [address] Senior Internal Auditor: Kris Pardo MD Troponinon 10-25-2022 Troponin, High Sens 7 ng/L Normal 0-14 [facility] Comment on above: Result Comment: High Sensitivity Troponi n values cannot be compared with other Troponin methodologies. Performed By: #### B MP, CDP, LIP, LIVP, TROPI #### [place] [address] Senior Internal Auditor: Kris Pardo MD UA w/Reflex Cultureon 2022 Bilirubin, SemiQt,Ur Negative Normal NEG [facility] Comment on above: Performed By: #### TYS #### [place] [address] Senior Internal Auditor: Kris Pardo MD Blood, Urine MODERATE Abnormal NEG [facility] Comment on above: Performed By: #### TYS #### [address] [address] Senior Internal Auditor: Kris Pardo MD Clarity (U) Clear Normal CLEAR [facility] Comment on above: Performed By: #### TYS #### [address] [address] Senior Internal Auditor: Kris Pardo MD Color (U) Yellow Normal YEL [facility] Comment on above: Performed By: #### TYS #### [address] [address] Senior Internal Auditor: Kris Pardo MD Glucose Ql (U) Negative Normal NEG [facility] Comment on above: Performed By: #### TYS #### [address] [id number] Senior Internal Auditor: Kris Pardo MD Ketones Ql (U) Negative Normal NEG [facility] Comment on above: Performed By: #### TYS #### [address] [id number] Senior Internal Auditor: Kris Pardo MD Leukocyte esterase Test strip Ql (U) Negative Normal NEG [facility] Comment on above: Performed By: #### TYS #### [address] [id number] Senior Internal Auditor: Kris Pardo MD Nitrite,Ur Negative Normal NEG [facility] Comment on above: Performed By: #### TYS #### [address] [id number] Senior Internal Auditor: Kris Pardo MD PH,Ur 7.0 Normal 5.0-8.0 [facility] Comment on above: Performed By: #### TYS #### [place] [address] Senior Internal Auditor: Kris Pardo MD Protein Ql (U) Negative Normal NEG [facility] Comment on above: Performed By: #### TYS #### [place] [address] Senior Internal Auditor: Kirs Pardo MD Spec. Jamul,Ur 1.006 Normal 1.005-1.030 [facility] Comment on above: Performed By: #### TYS #### [place] [address] Senior Internal Auditor: Kris Pardo MD Urobilinogen,Ur Normal Normal 0.0-1.0 [facility] Comment on above: Performed By: #### TYS #### [place] [address] Senior Internal Auditor: Kris Pardo MD Urinalysis,Microon 3 Bacteria FEW Abnormal NONE [facility] Comment on above: Performed By: #### TYS #### [place] [address] Senior Internal Auditor: Kris Pardo MD Epithelial cells LM Ql (Urine sed) 0 TO 2 Normal 0-5 [facility] Comment on above: Performed By: #### TYS #### [place] [address] Senior Internal Auditor: Kris Pardo MD Other Observations Utilizing a urinalysis as the only screening method to exclude a potential Abnormal NREQ [facility] Comment on above: Result Comment: uropathogen can be unrel iable in many patient populations. Rapid screening tests are less sensitive than culture and if UTI is a clinical possibility, culture should be considered despite a negative urinalysis. Performed By: #### T YS #### [place] [address] Senior Internal Auditor: Kris Pardo MD Urine RBC's 20 TO 50 Normal 0-2 [facility] Comment on above: Performed By: #### TYS #### [place] [address] Senior Internal Auditor: Kris Pardo MD Urine WBC's 0 TO 2 Normal 0-5 [facility] Comment on above: Performed By: #### TYS #### [place] [address] Senior Internal Auditor: Kris Pardo MD Hgb/Hcton 1 Hematocrit (Bld) [Volume fraction] 38.0 % Normal 36-46 [facility] Comment on above: Performed By: #### HH #### [place] [address] Senior Internal Auditor: Kris Pardo MD Hemoglobin (Bld) [Mass/Vol] 12.6 g/dL Normal 12.0-16.0 [facility] Comment on above: Performed By: #### HH #### [place] [address] Senior Internal Auditor: Kris Pardo MD OPERATIVE REPORTon 3 OPERATIVE REPORT [address] [id number] OPERATIVE REPORT PATIENT NAME: CHERYL HECTOR : 1965 MED REC NO: [id number] ROOM: ACCOUNT NO: [id number] ADMIT DATE: 10/21/2022 PROVIDER: Pete Rod DO [...] bladder was drained with Jarvis catheter. A VCare uterine manipulator was placed without incident. The [...] the right upper quadrant as an accessory events and promotions assistant port. The robot was docked with [...] The vaginal cuff was then closed with [id number] mucosal-mucosal Vicryl sutures incorporating the cuff angles [...] suture. No defects were noted using a Edward-Mrorison fascial closure (more content not included)... Normal [facility] Surgical Pathologyon 023 Surgical Pathology (NOTE) Path Number: [id number] -- Diagnosis -- A. UTERUS, CERVIX, AND BILATERAL FALLOPIAN TUBES: - Inactive endometrium. - Focal adenomyosis. - Numerous leiomyomata. - Unremarkable cervix. - Bilateral fallopian tubes with benign paratubal cysts. B. VAGINAL MUCOSA: Benign squamous mucosa. Una Viera M.D. Electronically Signed [facility] Clinical Information Pre-op Diagnosis: URINARY INCONTINENCE, UNSPECIFIED [...] lumen lined by a meza-pink, soft mucosa. 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 B. CHERYL HECTOR VAGINAL MUCOSA Received in formalin are three fragments of meza-calvillo, wrinkled and ragged vaginal mucosa ranging from 1.6 to 7.5 cm. Sectioning reveals mzea-pink, rubbery cut surfaces with no obvious masses or lesions identified. Associate Professor Of Radiology sections 1c. tm Microscopic Description A, B. Microscopic examination performed. Processing Lab: [address] [id number] Interpretation Performed at [address] [id number] SURGICAL PATHOLOGY CONSULTATION Patient Name: CHERYL HECTOR [facility] Rec: [id number] [facility] ANATOMIC PATHOLOGY [facility]. [place] [address] [facility] Type + Screenon 10-21-2022 Type + Screen Sample Expiration 10/24/2022,2359 Arm Band Number [id number] ABO/Rh(D) O POSITIVE Antibody Screen NEGATIVE [facility] Comment on above: Performed By: #### TYS #### [place] [id number] Senior Internal Auditor: Kris Pardo MD Type + Screenon 10-14-2022 Type + Screen Sample Expiration 10/24/2022,2359 Arm Band Number [id number] ABO/Rh(D) O POSITIVE Antibody Screen NEGATIVE Normal [facility] Comment on above: Performed By: #### TYS #### [place] [id number] [place] [address] Senior Internal Auditor: Kris Pardo MD Office Visit (Cardiology)on 09-12-2022 [...] try to retrieve her recent labs from [place] 4. The patient was advised to lose [...] Signs Recorded: 12Sep2022 12:04PM Heart Rate70, Apical Ecwmwolv831, LUE, Sitting Ghfgfgjai57, LUE, Sitting Height5 ft 4 in Uvujwp317 lb BMI Lswhelrzlf55.67 kg/m2 BSA Calculated1.81 Tobacco Useb) No PHQ-2 #1. Over the last 2 weeks have you felt down, depressed or hopeless? (If yes, answer PHQ-9 below)No PHQ-2 #2. Over the last 2 weeks have you felt little interest or pleasure in doin (more content not included)... [facility] Tobacco Screening.on 023 Adult depression screening assessment No [facility] [employer] Work Phone: Fall risk assessment a) No falls within the last year [facility] abeo 600 DO Work Phone: Tobacco use status CPHS b) No [facility] [employer] DO Work Phone: Ambulatory Visit Summaryon 0 [...] Cholecystectomy Hypotension Kidney stone Plantar fasciitis Normal [facility] General Surgery Office/Clini c Noteon 06-05-2022 General [...] SARS-CoV-2 (COVID-19) mRNA-1273 vaccine 04/21/2020 Recorded [facility] Comment on above: Result Comment: Electronically Signed By : BRENDA SOTO, Cristo Dueñas\Date and Time Signed: 06/05/22 16:56 EDT Pathology Noteon 06-03-2022 Pathology Note [id number]#1.00CD:127 [facility] Outside Colonoscopyon 2022 Outside Colonoscopy [id number]#1.00CD:127 [facility] Reminderson 05-30-2022 Reminders - From: Nedra Juares LPN To: GSN - Clinical; Sent: 05/30/2022 09:37:12 EST Show up: 05/01/2032 07:00:00 EST Subject: colonoscopy recall Due Date/Time: 05/29/2032 07:00:00 EST Reminder/Recall Patient is due for screening colonoscopy 05/29/2032. [facility] Facesheeton 05-07-2022 Facesheet [id number]#1.00CD:127 [facility] Consent for Procedure/Surger yon 05-06-2022 Consent for Procedure/Surger y [id number]#1.00CD:127 [facility] Ambulatory Visit Summaryon 0 05-03-2022 Ambulatory Visit [...] Cholecystectomy Hypotension Kidney stone Plantar fasciitis Normal [facility] Physician Referralon 023 Physician Referral [id number]:127 [facility] MM screening mammo BI w/CADo n 01-24-2022 MM screening mammo BI w/CAD [facility] Main [place] [address] [place] [address] Mammography Report Signed Patient: Cheryl Hector MR#: [id number] : 1965 Acct:[id number] Age/Sex: 56 / F ADM Date: 01/24/22 Loc: [place] Room: Type: [facility] Attending Dr: Jose Dangelo MD Copies to: [...] Kunal Osorio M.D.01/24/2022 4:44 PM Dictation Location: [facility] Transcribed By: [facility] 01/24/22 1644 Dictated By: Kunal Osorio II, MD 01/24/22 1640 Signed By: 01/24/22 1644 [facility] Tobacco Screening.on 022 Adult depression screening assessment No [facility] [facility] 250 DO Work Phone: Tobacco use status CPHS b) No [facility] [facility] 250 DO Work Phone: Vital Signs Date Time Vital Sign Value Performing Clinician Facility 08-13-2023 12:58-0400 Body height 162.6 cm Deirdre Montalvo MD Work Phone: [facility] 08-13-2023 12:58-0400 Body mass index (BMI) [Ratio] 29.78 kg/m2 Deirdre Montalvo MD Work Phone: [facility] 08-13-2023 12:58-0400 Body weight 78.7 kg Deirdre Montalvo MD Work Phone: [facility] 08-13-2023 12:58-0400 Diastolic blood pressure 96 mm[Hg] Deirdre Montalvo MD Work Phone: [facility] Comment on above: ALICIA BP Average 08-13-2023 12:58-0400 Heart rate 68 /min Deirdre Montalvo MD Work Phone: [facility] 08-13-2023 12:58-0400 SaO2% (BldA) [Mass fraction] 100 % Deirdre Montalvo MD Work Phone: [facility] 08-13-2023 12:58-0400 Systolic blood pressure 150 mm[Hg] Deirdre Montalvo MD Work Phone: [facility] Comment on above: ALICIA BP Average 09-12-2022 12:04-0400 Body height 162.56 cm Janna E Mast Work Phone: [facility] 600 DO Work Phone: 09-12-2022 12:04-0400 Body mass index (BMI) [Ratio] 28.67 kg/m2 Janna E Mast Work Phone: [facility] 600 DO Work Phone: 09-12-2022 12:04-0400 Body surface area Derived from formula 1.81 m2 Janna E Mast Work Phone: [facility] 600 DO Work Phone: 09-12-2022 12:04-0400 Body weight 75.75 kg [facility] Work Phone: 09-12-2022 12:04-0400 Diastolic blood pressure 70 mm[Hg] Janna E Mast Work Phone: [facility] 600 DO Work Phone: 09-12-2022 12:04-0400 Heart rate 70 /min [facility] Work Phone: 09-12-2022 12:04-0400 Systolic blood pressure 104 mm[Hg] [facility] Work Phone: 05-03-2022 15:33-0500 Blood Pressure Location Cristo SCOTL General Surgery [place] 05-03-2022 15:33-0500 Diastolic blood pressure 96 mm[Hg] Cristo ELLISONL General Surgery [place] 05-03-2022 15:33-0500 Heart rate 70 /min Cristo ELLISONL General Surgery [place] 05-03-2022 15:33-0500 Respiratory rate 16 /min Cristo ELLISONL General Surgery [place] 05-03-2022 15:33-0500 Systolic blood pressure 134 mm[Hg] Cristo ELLISONL General Surgery [place] 05-22-2021 16:14-0500 Diastolic blood pressure 85 mm[Hg] Janna E Mast Work Phone: [facility] 250 DO Work Phone: 05-22-2021 16:14-0500 Systolic blood pressure 122 mm[Hg] Janna E Mast Work Phone: [facility] 250 DO Work Phone: 05-22-2021 15:57-0500 Body height 162.56 cm Janna E Mast Work Phone: [facility] 250 DO Work Phone: 05-22-2021 15:57-0500 Body mass index (BMI) [Ratio] 28.32 kg/m2 Janna E Mast Work Phone: [facility] 250 DO Work Phone: 05-22-2021 15:57-0500 Body surface area Derived from formula 1.8 m2 Janna E Mast Work Phone: [facility] 250 DO Work Phone: 05-22-2021 15:57-0500 Body weight 74.84 kg Janna E Mast Work Phone: [facility] 250 DO Work Phone: 05-22-2021 15:57-0500 Diastolic blood pressure 100 mm[Hg] Janna E Mast Work Phone: [facility] 250 DO Work Phone: 05-22-2021 15:57-0500 Heart rate 80 /min Janna E Mast Work Phone: [facility] 250 DO Work Phone: 05-22-2021 15:57-0500 Systolic blood pressure 140 mm[Hg] Janna E Mast Work Phone: [facility] 250 DO Work Phone: 05-16-2021 [id number] 102.2 1 [facility] Work Phone: Comment on above: FSLDL Encounters Encounter Date Encounter Type Care Provider Facility Start: 08-14-2023 ambulatory Deirdre Montalvo MD Work Phone: Endocrinology Start: 08-14-2023 Patient encounter procedure Deirdre Montalvo MD Work Phone: Endocrinology Comment on above: Important Medical dx history info not mentioned Start: 08-13-2023 End: 08-13-2023 ambulatory SERA LAMBERT Facility:[facility] Start: 08-13-2023 End: 08-13-2023 Patient encounter procedure Deirdre Montalvo MD Work Phone: Endocrinology Comment on above: Low serum cortisol l evel (Primary Dx); Prediabetes; Uncontrolled hypertension Start: 10-25-2022 End: 10-25-2022 Emergency department patient visit FAIZAN Us~[id number] DILCIACHRISTY MOODY [facility] Start: 10-21-2022 End: 10-21-[address] [facility] Start: 10-14-2022 End: 10-15-[address] [facility] Start: 09-12-[address] Vamsi Serrano Facility: Start: 09-12-2022 Patient encounter procedure [facility]ast [facility] Work Phone: Start: 06-05-2022 End: 06-06-2022 ambulatory Cristo CROCKER Facility: [facility] Start: 06-05-2022 End: 06-05-2022 Patient encounter procedure Cristo CROCKER General Surgery [facility] Start: 06-03-2022 Telephone encounter Janna E Mas t Work Phone: [facility] 600 DO Work Phone: Start: 05-29-2022 End: 05-30-[address] CRISTO CROCKER . Facility: Start: 05-03-2022 End: 05-04-2022 ambulatory Sera Lambert Facility: [facility] Start: 05-03-2022 End: 05-03-2022 Patient encounter procedure Cristo CROCKER General Surgery [facility] Start: 04-25-2022 ambulatory Cristo CROCKER Facility :[facility] Start: 01-24-2022 End: 01-24-2022 ambulatory Sera Lambert Facility:[facility] Start: 05-22-2021 Office outpatient vi sit 15 minutes Janna E Mast Work Phone: [facility] 250 DO Work Phone: Start: 07-02-2017 Ambulatory VAMSI SERRANO Faci lity:[id number] Patient encounter status Janna E Mast Work Phone: [facility] 600 DO Work Phone: Procedures Date [...] urethral stricture Cristo CROCKER Cardiac catheterisation Иван aeyanet ELLISONL Cardiac catheterization Janna E Mast Work Phone: [...] Treatment Date Care Activity Detail Author Start: 10-25-2025 Diabetes Screening Diabetes Screenin g [facility] Start: 11-23-2023 Influenza vaccination Influenz a Vaccine (Season Ended) [facility] Start: 09-16-2023 FUV, Provider: Vamsi Serrano, Status: Pen, Time: 10:10 AM FUV, Provider: Vamsi Serrano, Status: Pen, Time: 10:10 AM [facility] 600 DO Work Phone: Start: 2023 RSV Vaccine (1 - 1-d ose 60+ series) RSV Vaccine (1 - 1-dose 60+ series) [facility] Start: 03-24-2023 Behavioral Health Screening Behavioral Health Screening [facility] Start: 11-22-2022 Covid-19 Vaccine ( season) Covid-19 Vaccine ( season) [facility] Start: 10-08-2022 FUV, Provider: Vamsi Serrano, Status: Pen, Time: 2:00 PM FUV, Provider: Vamsi Serrano, Status: Pen, Time: 2:00 PM [facility] 600 DO Work Phone: Start: 06-04-2022 FUV, Provider: Vamsi Serrano, Status: Pen, Time: 3:50 PM FUV, Provider: Vamsi Serrano, Status: Pen, Time: 3:50 PM [facility] 250 DO Work Phone: Start: 07-24-2013 Shingrix Vaccine (1 of 2) Gonzalez grix Vaccine (1 of 2) [facility] Start: 07-24-2008 Lipid panel Lipid Screening [facility] Start: 07-24-2008 Screening for malign ant neoplasm of colon [facility] Start: 2003 Screening for malign ant neoplasm of breast Mammogram Screening [facility] Start: 07-24-1993 Screening for malign ant neoplasm of cervix HPV Testing [facility] Start: 07-24-1984 Screening for malign ant neoplasm of cervix Pap Testing [facility] Start: 07-24-1982 Urine microalbumin profile DTaP,Tdap,Td Vaccine (1 - Tdap) [facility] Start: 07-24-1981 Hepatitis C screening Hepatitis C [facility] Start: 07-24-1981 HIV screening HIV Screening [facility] Immunizations Immunization Date Immunization Notes Care Provider Tracy espino 01-23-2022 influenza, seasonal, injectable Janna E Mast Work Phone: [facility] 600 DO Work Phone: 01-23-2022 influenza virus vacc ine, unspecified formulation Deirdre Montalvo MD Work Phone: [facility] 01-22-2022 influenza virus vacc ine, unspecified formulation Cristo CROCKER General Surgery [place] 03-19-2021 Moderna COVID-19 Vac cine 100 MCG/0.5ML Intramuscular Suspension Janna E Mast Work Phone: General Surgery [place] 05-19-2020 Moderna COVID-19 Vac cine 100 MCG/0.5ML Intramuscular Suspension Janna E Mast Work Phone: General Surgery [place] 04-21-2020 Moderna COVID-19 Vac cine 100 MCG/0.5ML Intramuscular Suspension Janna E Mast Work Phone: General Surgery [place] 01-18-2020 influenza virus vacc ine, unspecified formulation Janna E Mast Work Phone: [facility] 250 DO Work Phone: 12-23-2019 influenza virus vacc ine, unspecified formulation Janna E Mast Work Phone: [facility] 250 DO Work Phone: 01-06-2018 influenza virus vacc ine, unspecified formulation Janna E Mast Work Phone: [facility] 250 DO Work Phone: 12-22-2016 influenza virus vacc ine, unspecified formulation Janna E Mast Work Phone: [facility] 250 DO Work Phone: 01-21-2002 hepatitis B vaccine, adult dosage Janna E Mast Work Phone: [facility] 250 DO Work Phone: Payers Date Payer Category Payer Self-pay 2014 Unknown 1965 Unknown [id number] 2.16.84 [id number] 1965 Unknown [id number] 2.16.8 [id number] 1965 Unknown [id number] 2.16.8 [id number] 1965 Unknown [id number] 2.16.8 [id number] 1965 Unknown [id number] 2.16.8 [id number] 1965 Unknown [id number] 2.16. [id number] 1965 Unknown [id number] 2.16. [id number] 1965 Unknown [id number] 2.16. [id number] 1965 Unknown [id number] 2.16. [id number] 1959 Unknown [id number] Unknown [id number] 2.16.8 [id number] Social History Date Type Detail Facility Start: 08-13-2023 Social alcohol use Social alcohol us e -[facility] 250 DO Work Phone: Start: 05-03-2022 End: 08-13-2023 Tobacco smoking status Never smoked tobacco (finding) [facility] Surgery [place] Tobacco smoking status Never General Surgery [place] Start: 08-13-2023 Sex Assigned At Female [facility] Start: 08-13-2023 Tobacco use and exposure Smokeless tobacco non-user [facility] Start: 08-13-2023 End: 08-15-2023 Alcohol intake Current drinker of alcohol (finding) [facility] Start: 08-13-2023 Alcohol Comment Once a week or less. [facility] Start: 1965 Sex Assigned At Not on file [facility] NEGATED: Highlighted rowStart: NINF History of tobacco use Passive smoker [facility] Functional Status Date Assessment Result Facility 05-03-2022 Functional Status N/A General [facility] Clinical Notes 05-03-2022 to 08-15-2023 Deirdre Montalvo MD - 08/13/2023 12:53 PM EDT Note Date & Type Note Facility 08-15-2023 Note HNO ID: [id number] Author: DEIRDRE MONTALVO MD Service: ? Author Type: Physician Type: Progress Notes Filed: 08/15/2023 11:40 Note Text: Addendum: In a follow up [employer] message, patient indicated a diagnosis of benign adrenal adenoma. A copy of the CT scan report is requested. Also, I added labs for aldosterone, renin and BMP. She has uncontrolled/untreated hypertension. Deirdre Montalvo MD, [facility] 08-13-2023 Note HNO ID: [id number] Author: DEIRDRE MONTALVO MD Service: ? Author Type: Physician Type: Progress Notes Filed: 08/13/2023 19:10 Note Text: HISTORY OF PRESENT ILLNESS: Cheryl Hector is presenting for adrenal concern Requesting provider: None, self-referred. Patient has concern about adrenal insufficiency because of fatigue and puffiness around the eyes for years. She felt better when she received dexamethasone for COVID 19 infection in Apr, 2023. Patient reports testing for cortisol levels twice in Apr, 2023 and were low. Patient has excessive daytime sleepiness, she has to take a nap in the afternoon to help her get through her day. Patient sleeps 7 hours a night, disturbed sleep and her mentioned to her that she has problem with snoring and that she stops breathing during the night. Patient is going to have sleep study. Patient reports prior bleed in brain on MRI done on August 04, 2023 (record is not available) because of severe migraine headaches. She is going to have a follow up MRI. Patient gained about 10 lb over the past year. Review of Systems Constitutional: Positive for fatigue and night sweats. Negative for recent unintentional weight change. HENT: Positive for postnasal drip. Negative for trouble swallowing and thyroid pain (lower neck). Eyes: Negative for visual disturbance. Respiratory: Negative for difficulty breathing. Cardiovascular: Negative for chest pain, leg swelling and claudication. Gastrointestinal: Positive for heartburn. Negative for nausea, vomiting, abdominal pain, diarrhea and constipation. Genitourinary: Positive for urgency and amenorrhea. Negative for frequent urination and slower stream. Musculoskeletal: Negative for myalgias, muscle weakness and bone pain. Skin: Negative for skin color change. Neurological: Positive for headaches. Negative for dizziness and numbness. Endo/Heme/Allergies: Positive for heat intolerance when others are comfortable and changes in body hair. Negative for polydipsia, cold intolerance when others are comfortable, hot flashes and flushing. Answers submitted by the patient for this visit: Endocrine Review of Systems (Submitted on 08/06/2023) Blood Clots?: No Joint pain or stiffness: Yes PAST MEDICAL HISTORY Diagnosis Date Cardiomyopathy (HCC) Cervical stenosis of spine DJD (degenerative joint disease), lumbar GERD (gastroesophageal reflux disease) Hiatal hernia Kidney stone PAST SURGICAL HISTORY Procedure Laterality Date PAST SURGICAL HISTORY OF Partial hysterectomy with rectocele and cystocele repair Patient takes either Prevacid or Protonix (by rotation). Current Medications 08/13/2023 OTHER Medication Dosage Pharm Subclass lansoprazole (PREVACID) 30 mg capsule Gastric Acid Secretion [employer] - Proton Pump Inhibitors (PPIs) loratadine-pseudoephedrine ER (CLARITIN-D 12 HOUR) 5-120 mg per tablet Take 1 tablet by mouth two times a day as needed. for allergy symptoms. 2nd Generation Antihistamine-Decongestant Combinations pantoprazole DR (PROTONIX) 40 mg tablet Gastric Acid Secretion [employer] - Proton Pump Inhibitors (PPIs) ALLERGIES Allergen Reactions Amoxicillin Unknown Ciprofloxacin Myalgia, Rash Codeine Unknown Oxycodone-Aspirin Unknown FAMILY HISTORY Problem Relation Age of Onset Diabetes Mother Coronary Artery Disease Mother Thyroid Father Questionable history Social History Tobacco Use Smoking status: Never Passive exposure: Never Smokeless tobacco: Never Substance Use Topics Alcohol use: Yes Comment: Once a week or less. Drug use: Never PHYSICAL EXAMINATION: BP 150/96 Pulse 68 Ht 162.6 cm (5' 4 ) Wt 78.7 kg (173 lb 8 oz) SpO2 100% BMI 29.78 kg/m? HEENT: no pallor or jaundice, no exophthalmous or lid lag Neck: no thyromegaly, no adenopathy, no thyroid or carotid bruit. Heart: RRR no murmur or gallop Lungs: CTA AND P Abd: Soft nontender with no organomegaly Ext: no edema Deep tendon reflexes are + 2 with normal relaxation phase and no tremor in upper extremities. Labs Apr, 2023: AM cortisol 5.9 ug/dl ACTH 12.1 Creatinine 0.76 mg/dl Labs Jan, 2023: Glucose, fasting 105 mg/dl. A1c 6.1% Thyroid hormone levels are normal. Rest of CMP were normal. IMPRESSION AND PLAN: 1. Low cortisol level: measurements seem to had been done closer to her treatment with dexamethasone. Clinically, she has no symptoms to suggest adrenal insufficiency. Rather, she has uncontrolled hypertension and pre-diabetes. Also, she has gained weight over the past year. Improvement of symptoms on dexamethasone is not specific. Obtain early AM (8:00 AM) ACTH, cortisol and free cortisol. Patient will have labs done locally. A lab request letter is provided. Patient had concerns for Lotus's syndrome/disease prior to her diagnosis with COVID 19 in Apr, 2023. Whether to proceed with additional evaluations for this possibility is to be de (more content not included)... [facility] 08-13-2023 History of Present illness Narrative HISTORY OF PRESENT ILLNESS: Cheryl Hector is presenting for adrenal concern Requesting provider: None, self-referred. Patient has concern about adrenal insufficiency because of fatigue and puffiness around the eyes for years. She felt better when she received dexamethasone for COVID 19 infection in Apr, 2023. Patient reports testing for cortisol levels twice in Apr, 2023 and were low. Patient has excessive daytime sleepiness, she has to take a nap in the afternoon to help her get through her day. Patient sleeps 7 hours a night, disturbed sleep and her mentioned to her that she has problem with snoring and that she stops breathing during the night. Patient is going to have sleep study. Patient reports prior bleed in brain on MRI done on August 04, 2023 (record is not available) because of severe migraine headaches. She is going to have a follow up MRI. Patient gained about 10 lb over the past year. Review of Systems Constitutional: Positive for fatigue and night sweats. Negative for recent unintentional weight change. HENT: Positive for postnasal drip. Negative for trouble swallowing and thyroid pain (lower neck). Eyes: Negative for visual disturbance. Respiratory: Negative for difficulty breathing. Cardiovascular: Negative for chest pain, leg swelling and claudication. Gastrointestinal: Positive for heartburn. Negative for nausea, vomiting, abdominal pain, diarrhea and constipation. Genitourinary: Positive for urgency and amenorrhea. Negative for frequent urination and slower stream. Musculoskeletal: Negative for myalgias, muscle weakness and bone pain. Skin: Negative for skin color change. Neurological: Positive for headaches. Negative for dizziness and numbness. Endo/Heme/Allergies: Positive for heat intolerance when others are comfortable and changes in body hair. Negative for polydipsia, cold intolerance when others are comfortable, hot flashes and flushing. Answers submitted by the patient for this visit: Endocrine Review of Systems (Submitted on 08/06/2023) Blood Clots?: No Joint pain or stiffness: Yes PAST MEDICAL HISTORY Diagnosis Date Cardiomyopathy (HCC) Cervical stenosis of spine DJD (degenerative joint disease), lumbar GERD (gastroesophageal reflux disease) Hiatal hernia Kidney stone PAST SURGICAL HISTORY Procedure Laterality Date PAST SURGICAL HISTORY OF Partial hysterectomy with rectocele and cystocele repair Patient takes either Prevacid or Protonix (by rotation). Current Medications 08/13/2023 OTHER Medication Dosage Pharm Subclass lansoprazole (PREVACID) 30 mg capsule Gastric Acid Secretion [employer] - Proton Pump Inhibitors (PPIs) loratadine-pseudoephedrine ER (CLARITIN-D 12 HOUR) 5-120 mg per tablet Take 1 tablet by mouth two times a day as needed. for allergy symptoms. 2nd Generation Antihistamine-Decongestant Combinations pantoprazole DR (PROTONIX) 40 mg tablet Gastric Acid Secretion [employer] - Proton Pump Inhibitors (PPIs) ALLERGIES Allergen Reactions Amoxicillin Unknown Ciprofloxacin Myalgia, Rash Codeine Unknown Oxycodone-Aspirin Unknown FAMILY HISTORY Problem Relation Age of Onset Diabetes Mother Coronary Artery Disease Mother Thyroid Father Questionable history Social History Tobacco Use Smoking status: Never Passive exposure: Never Smokeless tobacco: Never Substance Use Topics Alcohol use: Yes Comment: Once a week or less. Drug use: Never PHYSICAL EXAMINATION: BP 150/96 Pulse 68 Ht 162.6 cm (5' 4 ) Wt 78.7 kg (173 lb 8 oz) SpO2 100% BMI 29.78 kg/m HEENT: no pallor or jaundice, no exophthalmous or lid lag Neck: no thyromegaly, no adenopathy, no thyroid or carotid bruit. Heart: RRR no murmur or gallop Lungs: CTA & P Abd: Soft nontender with no organomegaly Ext: no edema Deep tendon reflexes are + 2 with normal relaxation phase and no tremor in upper extremities. Labs Apr, 2023: AM cortisol 5.9 ug/dl ACTH 12.1 Creatinine 0.76 mg/dl Labs Jan, 2023: Glucose, fasting 105 mg/dl. A1c 6.1% Thyroid hormone levels are normal. Rest of CMP were normal. IMPRESSION AND PLAN: 1. Low cortisol level: measurements seem to had been done closer to her treatment with dexamethasone. Clinically, she has no symptoms to suggest adrenal insufficiency. Rather, she has uncontrolled hypertension and pre-diabetes. Also, she has gained weight over the past year. Improvement of symptoms on dexamethasone is not specific. Obtain early AM (8:00 AM) ACTH, cortisol and free cortisol. Patient will have labs done locally. A lab request letter is provided. Patient had concerns for Milton's syndrome/disease prior to her diagnosis with COVID 19 in Apr, 2023. Whether to proceed with additional evaluations for this possibility is to be determined based on above labs. We may consider 1 mg dexamethasone suppression test. Dexamethasone suppression test? 2. Uncontrolled/untreated hypertension: Avoid using decongestant (she is using Claritin-D). Also, sleep apnea is strongly suspected. She will be having an evaluation done. Follow with PCP for further management. 3. Fatigue: likely contributed by uncontrolled hypertension, disturbed sleep/sleep apnea. 4. Pre-diabetes: Consult dietitian for Mediterranean diet. Follow with PCP in 3 months. If there is no improvement, consider metformin. Patient expressed understanding and agreed with plan. Thank you for allowing me to participate in the medical care of Ms. Cheryl Hector My final recommendations will be communicated back to the requesting physician by way of shared Medical Record. Deirdre Montalvo MD, MORA documented in this encounter [facility] 05-29-2022 Note OPERATIVE NOTE OPERATION DATE: 05/29/2022 [...] good condition. CC: Patient's family physician [facility] 05-03-2022 Note Chief Complaint consultation for abdominal [...] (12/29/2014), Cystourethroscopy with (more content not included)... [facility] Comment on above: Result Comment: Elec tronically Signed By: BRENDA SOTO, Cristo Dueñas\Date and Time Signed: 05/03/22 16:43 EST Evaluation + Plan note No data available for this section General Surgery [place] Evaluation note Diagnosis Low serum cortisol level- Primary Glucocorticoid deficiency Prediabetes Other abnormal glucose Uncontrolled hypertension Unspecified essential hypertension [facility] Is here for follow-up continue management for previous presentation with stress cardiomyopathy, hype rlipidemia and mildly overweight. Since last time I saw her she denies any cardiac complaint of chest pain, palpitation, lightheadedness, dizziness or syncope. She remains reasonably active. Recent laboratory data noted and reviewed with her. * ASSESSMENT: * 1. Prior presentation with stress cardiomyopathy/takotsubo syndrome, echocardiogram subsequently showed normal ejection fraction. She denies any symptoms and describe functional class I. * 2. Hyperlipidemia with documented history of intolerance to statin. Seem to tolerated Zetia * 3. Mildly overweight. With recent weight gain * 4. Prior report of fatigue has improved * Plan * 1. Patient will remain on the same medication. Patient agreed to go back to the area * 2. Patient was counseled regarding risk factor modification * 3. We'll see him back in the office in 1 year * 4. The patient was advised to lose weight and exercise. * 5. Reviewed with her her recent lab [facility] kinetic DO Work Phone: History of Present illness Narrative* Patient is here for follow-up continue management for history of stress cardiomyopathy, hyperlipidemia and overweight. She reports she is feeling well. She denies any cardiac complaint. She describedfunctional class I. She denies lightheadedness, dizziness or syncope. She requested clearance for hy sterectomy. * ASSESSMENT: * 1. Prior presentation with stress cardiomyopathy/takotsubo syndrome, echocardiogram subsequently showed normal ejection fraction. She denies any symptoms and describe functional class I. * 2. Hyperlipidemia with documented history of intolerance to statin. Seem to tolerated Zetia * 3. Mildly overweight. With recent weight gain * 4. Prior report of fatigue has improved preoperative risk assessment for hysterectomy. Patient is functional class I. She has normal LV systolic function and no coronary artery disease. Her operativerisk is acceptable * Plan * 1. Patient will remain on the same medication. Patient agreed to go back to the area * 2. Patient was counseled regarding risk factor modification * 3. We'll see him back in the office in 1 year I will try to retrieve her recent labs from [place] * 4. The patient was advised to lose weight and exercise. * 5. I reviewed with patient preoperative cardiac risk for her upcoming hysterectomy. I believe her operative risk is acceptable and she can proceed she was given permission to hold aspirin for 7 days prior to surgery [facility] [address] DO Work Phone: Hospital Discharge instructions No data available for this section General Surgery [place] Progress note No data available for this section General Surgery [place] Summary Purpose Family History No Family History [...] HECTOR is being seen for poc hysterectomy. Reason for Referral Specialty Diagnoses / Procedures Referred By Contac t Referred To Contact Diagnoses Prediabetes Procedures ENDOCRINOLOGY DIETITIAN VISIT (MNT) MEDICAL NUTRITION ASSMT&IVNTJ INDIV EACH 15 AR MEDICAL NUTRITION ASSMT&IVNTJ INDIV EACH 15 AR MEDICAL NUTRITION ASSMT&IVNTJ INDIV EACH 15 AR MEDICAL NUTRITION ASSMT&IVNTJ INDIV EACH 15 AR Deirdre Montalvo MD [address] [place] [address] Referral ID Status Reason Start Date Expiration Date Visits Requested Visits Authorized [id number] Authorized PCP Requested Referral 08/13/2023 08/12/2024 1 1 Additional Source Comments INFORMATION SOURCE (unrecogn ized section and content) DATE CREATED AUTHOR 09/11/2017 [facility] DATE CREATED AUTHOR AUTHOR'S ORGANIZ ATION 02/06/2022 [facility] DATE CREATED AUTHOR AUTHOR'S ORGANIZ ATION 06/03/2022 [facility] DATE CREATED AUTHOR AUTHOR'S ORGANIZ ATION 06/21/2022 [facility] DATE CREATED AUTHOR AUTHOR'S ORGANIZ ATION 09/13/2022 [facility] DATE CREATED AUTHOR AUTHOR'S ORGANIZ ATION 09/13/2022 [facility] DATE CREATED AUTHOR AUTHOR'S ORGANIZ ATION 11/08/2022 [facility] DATE CREATED AUTHOR AUTHOR'S ORGANIZ ATION 08/15/2023 [facility] Patient Care team informatio n (unrecognized section and content) Dough Braker Relationship Specialty Start Date End Date Sera Lambert MD [address] [place] [address] PCP - General Family Medicine 08/13/23 Dough Braker Relationship Specialty Start Date End Date Sera Lambert MD [address] [place] [address] PCP - General Family Medicine 08/13/23 Source Comments (unrecognize d section and content) In the event this informatio n is protected by the Federal Confidentiality of Alcohol and Drug Abuse Patient Records regulations: The Federal rules restrict any use of the information to criminally investigate or prosecute any alcohol or drug abuse patient.[facility] the event this information is protected by the Federal Confidentiality of Alcohol and Drug Abuse Patient Records regulations: The Federal rules restrict any use of the information to criminally investigate or prosecute any alcohol or drug abuse patient.[facility] FOR RECORDS PERTAINING TO PATIENTS WHO ARE [...] BE BASED ON THE PRIMARY CLINICAL RECORDS. [facility] provides no warranty or guarantee of the accuracy or completeness of information in this document.
[2023-08-19 08:34] LABS: Anion Gap 12.5; BUN Creatinine Ratio 20.2; Carbon Dioxide 29.5 mmol/L (21.0-32.0); Chloride 103 mmol/L (98-107); Estimated GFR (African America >60 (>=60); Estimated GFR (Non-African Ame >60 (>=60); Glucose 100 mg/dL (74-106); Sodium 141 mmol/L (136-145)
[2023-08-20 14:09] LABS: ACTH, Plasma 29.6 pg/mL (7.2-63.3)
[2023-08-22 11:11] LABS: Aldosterone LCMS, Serum 11.8 ng/dL (0.0-30.0)
== END 2023-08-19 07:19 | disposition home or self-care (01) ==
LOC: LAB 07:18
PROVIDERS: PCP Family Medicine
DX: R79.89 Other specified abnormal findings of blood chemistry (principal); E27.9 Disorder of adrenal gland, unspecified
CPT/HCPCS: 36415; 80048; 82024; 82088; 82530; 82533; 84244

== ENCOUNTER 2023-08-21 15:50 | Outpatient (OUT) | payer OTHER, SELFPAY ==
--- NOTE | 2023-08-21 15:53 | MR_ITS ---
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 FINDINGS: The cerebral sulci as well as ventricular system are appropriate for age. A tubular enhancing lesion in the right frontal lobe most likely is a developmental venous anomaly is noted. No other abnormal enhancing lesion is noted. There is no intracranial mass, mass effect, midline shift, intra or extra-axial fluid collection. Normal flow-void in the intracranial vessels is noted. The visualized portions of orbits, mastoid air cells as well as paranasal sinuses are unremarkable. MR/MR head/brain w con IMPRESSION: Right frontal developmental venous anomaly. No further follow-up is recommended. Electronically authenticated by: HÉCTOR TATUM Date: 08/21/2023 19:32
== END 2023-08-21 15:51 | disposition home or self-care (01) ==
LOC: MRI 15:50
PROVIDERS: PCP Family Medicine; Visit Provider Family Medicine
DX: Q27.30 Arteriovenous malformation, site unspecified (principal)
CPT/HCPCS: 70552; A9575

== ENCOUNTER 2023-08-23 20:00 | Outpatient (OUT) | payer OTHER, SELFPAY ==
--- OUTSIDE RECORDS SUMMARY | 2023-08-25 07:41 | XMS_ITS | CCD ---
Author Organization [facility] Care Team Providers Care Vest Front Presser Name Role Phone VAMSI SERRANO Unavailable Unavailable JANNA ALEXANDER Unavailable Unavailable Mast, Janna E Unavailable Unavailable Unavailable Sera Lambert Primary Care Unavailable Jose Dangelo Attending Unavailable Jose Dangelo Admitting Unavailable Sera Lambert Primary Care Physician NILCali ., DR LEMONS Admitting Unavailable NILL ., DR LEMONS Attending Unavailable DOLLYY ., DR ZAMORA Primary Care Unavailable NILL ., DR LEMONS Consulting Unavailable SPENCER RAY Consulting Unavailable FAIZAN WILD Consulting Unavailable Cristo CROCKER Attending Unavailable Sera Lambert Referring Unavailable Sera Lambert Referring Unavailable Cristo CROCKER Attending Unavailable Cristo CROCKER Attending Unavailable Cristo CROCKER Attending Unavailable Maggie, Dr. Noel Referring Unavaila kraig Serrano, Dr. Noel Attending Unavaila ble Catherine, Dr. Janna Marti Primary Care Unavailabl PETE Reyna Admitting Unavailable PETE ROD Attending Unavailable SERA LAMBERT Primary Care Unavailable FAIZAN SNYDER [id number] Attendin leonila Unavailable SERA LAMBERT Primary Care Unavailable SERA LAMBERT Primary Care Unavailable PETE ROD Referring Unavailable Sera Lambert MD Primary Care Provider [phone] SERA LAMBERT Primary Care Unavailable DEIRDRE MONTALVO Attending Unavailable Sera Lambert MD Primary Care Provider VAMSI SERRANO Attending Unavailable SERA LAMBERT Primary Care Unavailable Allergies Allergy Classification Reported Allergen(s) Allergy Type Date of Onset Reaction(s) Facility (11 sources) Amoxicillin; Translations: [amoxicillin] Drug Allergy 09-24-19 12 [facility] (disorder), Unknown, Other General Surgery Dia (5 sources) atorvastatin; Translations: [atorvastatin] Drug Allergy 06-04-19 Other [facility] y 250 DO Work Phone: (3 sources) ezetimibe; Translations: [Zetia] Drug Allergy 06-04-19 Other [facility] y 250 DO Work Phone: (4 sources) Hmg-Coa Reductase Inhibitors (Statins); Translations: [Statins] Allergy to drug (finding) [facility] Repository (5 sources) oxyCODONE; Translations: [oxycodone] Drug Allergy 06-04-19 Other [facility] 250 DO Work Phone: (4 sources) Pravastatin; Translations: [Pravastatin Sodium TABS] Drug Allergy 06-04-19 Other [facility] y 250 DO Work Phone: (1 source) Amoxicillin Drug Allergy 02-22-20 17 [facility] Repository (1 source) Aspirin Drug Allergy 02-22-20 17 [facility] Repository (3 sources) Codeine; Translations: [codeine] Drug Allergy 09-24-19 12 [facility] Repository (1 source) oxyCODONE Drug Allergy 02-22-20 17 [facility] Repository (3 sources) Acetaminophen / oxyCODONE; Translations: [acetaminophen-oxy codone] Drug Allergy Projectile vomiting (disorder) General Surgery [facility] (5 sources) Aspirin / oxyCODONE; Translations: [aspirin-oxycodone ] Drug Allergy 09-24-19 12 Projectile vomiting (disorder), Unknown [facility] [place] (4 sources) Codeine; Translations: [codeine] Drug Allergy 09-24-19 12 Edema (finding), Unknown [facility] [place] (2 sources) HMG-CoA reductase inhibitor; Translations: [statins] Drug allergy Unknown (qualifier value) General Surgery [facility] (4 sources) Latex; Translations: [latex] Allergy to substance 12-23-19 15 Redness, Itching [facility] (4 sources) NITROFURANTOIN, MACROCRYSTALS / Nitrofurantoin, Monohydrate; Translations: [nitrofurantoin] Drug Allergy 08-21-19 24 Joint pain (finding), Cutaneous eruption (morphologic abnormality), Other, Rash [facility] (1 source) Acetaminophen / oxyCODONE Drug Allergy 05-13-19 23 [facility] Repository (1 source) Adhesive agent Drug allergy (disorder) 12-23-19 15 [facility] Repository (1 source) Amoxicillin Drug Allergy 07-28-19 13 [facility] Repository (2 sources) black walnut pollen extract; Translations: [CAUYWWE-RPV-RYV REDUCTASE INHIBITORS] Drug Allergy 05-13-19 23 [facility] Repository (1 source) Codeine Drug Allergy 07-28-19 13 [facility] Repository (1 source) Nitrofurantoin Drug Allergy 12-23-19 15 [facility] Repository (1 source) bandaids; Translations: [bandaids] Propensity to adverse reactions (disorder) [facility] Repository (4 sources) Ciprofloxacin; Translations: [CIPROFLOXACIN] Drug Allergy 05-08-19 Myalgia, Rash [facility] (1 source) OXYCODONE-ASPIRIN; Translations: [OXYCODONE-ASPIRIN ] Propensity to adverse reactions to drug (disorder) 09-24-19 12 [facility] Repository (1 source) HMG-CoA reductase inhibitor Drug Allergy 06-04-19 24 Other [facility] Work Phone: (1 source) ezetimibe; Translations: [EZETIMIBE] Drug Allergy 06-04-19 24 [facility] Repository (1 source) Pravastatin; Translations: [PRAVASTATIN] Drug Allergy 06-04-19 24 [facility] Repository (1 source) NITROFURANTOIN MONOHYD/M-CRYST; Translations: [NITROFURANTOIN MONOHYD/M-CRYST] Propensity to adverse reactions to drug (disorder) 08-21-19 24 [facility] Repository Medications Current Medications Medication Drug Class(es) Dates Sig (Normalized) Sig (Original) aspirin 81 mg delayed release oral tablet (6 sources) Platelet Aggregation Inhibitor, Nonsteroidal Anti-inflammatory Drug Start: 05-03-2022 take 1 tablet by mouth once daily aspirin 81 mg Oral EC Tab 81 mg = 1 tab(s), Oral, Daily, Refills(s) 0 Start Date: 05/03/22 Status: Ordered ezetimibe 10 mg oral tablet (6 sources) Dietary Cholesterol Absorption Inhibitor Start: 04-29-2022 take 1 tablet by mouth once daily Zetia 10 mg Tab 10 mg = 1 tab(s), Oral, Daily, Refills(s) 0 Start Date: 04/29/22 Status: Ordered lansoprazole 30 mg delayed release oral capsule (3 sources) Proton Pump Inhibitor Start: 05-23-2023 lansoprazole (Prevacid) [address] capsule 1 capsule (30 mg) once daily. 05/23/2023 Active loratadine 10 mg oral tablet (4 sources) End: 08-21-2023 take 1 tablet by mouth once daily loratadine (Claritin) 10 mg tablet Take 1 tablet (10 mg) by mouth once daily. 08/21/2023 Discontinued (Side effects) 12 hr loratadine 5 mg / pseudoephedrine sulfate 120 mg extended release oral tablet (3 sources) alpha-Adrenergic Agonist Start: 08-13-2023 take 1 tablet by mouth every twelve hours loratadine-pseudo ephedrine (Claritin-D 12 Hour) 5-120 mg 12 hr tablet Take 1 tablet by mouth every 12 hours if needed. 08/13/2023 Active Start: 08-13-2023 take 1 tablet by david th every twelve hours as needed loratadine-pseudoephedrine ER (CLARITIN- D 12 HOUR) 5-120 mg per tablet Take [...] vaginally. 0 09/24/2011 08/13/2023 Discontinued estrogens, conjugated (alf) 0.625 mg/ml vaginal cream (1 source) Estrogen Start: 09-10-2019 End: 08-13-2023 conjugated estrogens (PREMARIN) vaginal cream Use 0.5 g vaginally once daily. 42.5 g 3 09/10/2019 08/13/2023 Discontinued Problems Active Problems Problem Classification Problem Date [...] 4 08-13-2023 Episodic Disorders of lipid metabolism (7 sources) Hyperlipidemia; Translations: [Other and unspecified hyperlipidemia] Onset: 4 08-21-2023 Chronic Diverticulosis and diverticulitis (3 sources) Diverticulosis [...] Onset: 3 Other aftercare (1 source) terminal makeup operator (current) use of aspirin; Translations: [FAMILY SERVICE AIDE CURRENT USE OF ASPIRIN] Onset: 3 Episodic Other aftercare (1 source) Other terminal gauger (current) drug therapy; Translations: [OTH FAMILY SERVICE AIDE CURRENT DRUG THERAPY] Onset: 3 Episodic Other and ill-defined heart disease (8 sources) Takotsubo cardiomyopathy; Translations: [Takotsubo syndrome] Onset: 4 09-02-2017 Chronic Other and ill-defined heart disease (1 source) Takotsubo syndrome; Translations: [Takotsubo syndrome] Onset: 4 Chronic Other and unspecified benign neoplasm (2 [...] Episodic Other nutritional; endocrine; and metabolic disorders (7 sources) Overweight in adulthood with body mass index of 25 or more but less than 30; Translations: [Overweight] Onset: 4 05-03-2022 Episodic Other nutritional; endocrine; and metabolic disorders (2 sources) Body mass index (BMI) 29.0-29.9, adult; Translations: [Body mass index (BMI) 29.0-29.9, adult] Onset: 4 Episodic Other screening for suspected conditions (not [...] Test Name Value Interpretation Reference Range Facility ECG 12 Leadon 08-21-2023 Normal sinus rhythm [facility] Work Phone: CNOVon 08-13-2023 CNOV Office Visit (ENDOAV ) CHERYL HECTOR ([id number]) 1965 F Date Time Provider Department 08/13/23 [...] (PREVACID) 30 mg capsule Gastric Acid Secretion Neuro Psych Sales Specialist - Proton Pump Inhibitors (PPIs) loratadine-pseudoephedrine ER (CLARITIN-D 12 HOUR) 5-120 mg per tablet Take 1 tablet by mouth two times a day as needed. for allergy symptoms. 2nd Generation Antihistamine-Decongestant Combinations pantoprazole DR (PROTONIX) 40 mg tablet Gastric Acid Secretion Neuro Psych Sales Specialist - Proton Pump Inhibitors (PPIs) ALLERGIES Allergen [...] free cortis (more content not included)... Normal [facility] Basic Metabolic Profon 10-25 Anion gap [Moles/Vol] 10 mmol/L Normal 9-17 [facility] Comment on above: Performed By: #### BMP, CDP, LIP, LIVP, TROPI #### [place] [address] Manager Respiratory Care: Kris Pardo MD Calcium [Mass/Vol] 9.3 mg/dL Normal 8.6-10.4 [facility] Comment on above: Performed By: #### BMP, CDP, LIP, LIVP, TROPI #### [place] [address] Manager Respiratory Care: Kris Pardo MD Chloride [Moles/Vol] 101 mmol/L Normal 98-107 [facility] Comment on above: Performed By: #### BMP, CDP, LIP, LIVP, TROPI #### [place] [address] Manager Respiratory Care: Kris Pardo MD CO2 [Moles/Vol] 28 mmol/L Normal 20-31 [facility] Comment on above: Performed By: #### BMP, CDP, LIP, LIVP, TROPI #### [place] [address] Manager Respiratory Care: Kris Pardo MD Creatinine [Mass/Vol] 0.6 mg/dL Normal 0.5-0.9 [facility] Comment on above: Performed By: #### BMP, CDP, LIP, LIVP, TROPI #### [place] [id number] Manager Respiratory Care: Kris Pardo MD GFR/1.73 sq M.predicted among non-blacks MDRD (S/P/Bld) [Vol rate/Area] mL/min/{1.73_m2} Normal >60 [facility] Comment on above: Result Comment: These results [...] B MP, CDP, LIP, LIVP, TROPI #### [place] [address] Manager Respiratory Care: Kris Pardo MD Glucose [Mass/Vol] 102 mg/dL High 70-99 [facility] Comment on above: Performed By: #### BMP, CDP, LIP, LIVP, TROPI #### [place] [address] Manager Respiratory Care: Kris Pardo MD Potassium [Moles/Vol] 4.3 mmol/L Normal 3.7-5.3 [facility] Comment on above: Performed By: #### BMP, CDP, LIP, LIVP, TROPI #### [address] [address] Manager Respiratory Care: Kris Pardo MD Sodium [Moles/Vol] 139 mmol/L Normal 135-144 [facility] Comment on above: Performed By: #### BMP, CDP, LIP, LIVP, TROPI #### [place] [id number] Manager Respiratory Care: Kris Pardo MD Urea nitrogen [Mass/Vol] 13 mg/dL Normal 6-20 [facility] Comment on above: Performed By: #### BMP, CDP, LIP, LIVP, TROPI #### [place] [address] Manager Respiratory Care: Kris Pardo MD CBC with Diffon 10-25-2022 Abs. Basophil 0.10 k/uL Normal 0.0-0.2 [facility] Comment on above: Performed By: #### BMP, CDP, LIP, LIVP, TROPI #### [place] [address] Manager Respiratory Care: Kris Pardo MD Abs.Neutrophil (Seg) 7.10 k/uL Normal 1.8-7.7 [facility] Comment on above: Performed By: #### BMP, CDP, LIP, LIVP, TROPI #### [place] [address] Manager Respiratory Care: Kris Pardo MD Basophils/100 WBC (Bld) 1 % Normal 0-2 [facility] Comment on above: Performed By: #### BMP, CDP, LIP, LIVP, TROPI #### [place] [address] Manager Respiratory Care: Kris Pardo MD Eosinophils (Bld) [#/Vol] 0.50 10*3/uL High 0.0-0.4 [facility] Comment on above: Performed By: #### BMP, CDP, LIP, LIVP, TROPI #### [place] [address] Manager Respiratory Care: Kris Pardo MD Eosinophils/100 WBC (Bld) 5 % High 1-4 [facility] Comment on above: Performed By: #### BMP, CDP, LIP, LIVP, TROPI #### [place] [address] Manager Respiratory Care: Kris Pardo MD Erythrocyte distribution width (RBC) [Ratio] 12.9 % Normal 12.5-15.4 [facility] Comment on above: Performed By: #### BMP, CDP, LIP, LIVP, TROPI #### [place] [address] Manager Respiratory Care: Kris Pardo MD Hematocrit (Bld) [Volume fraction] 36.9 % Normal 36-46 [facility] Comment on above: Performed By: #### BMP, CDP, LIP, LIVP, TROPI #### [place] [address] Manager Respiratory Care: Kris Pardo MD Hemoglobin (Bld) [Mass/Vol] 12.5 g/dL Normal 12.0-16.0 [facility] Comment on above: Performed By: #### BMP, CDP, LIP, LIVP, TROPI #### [place] [address] Manager Respiratory Care: Kris Pardo MD Lymphocytes (Bld) [#/Vol] 1.20 10*3/uL Normal 1.0-4.8 [facility] Comment on above: Performed By: #### BMP, CDP, LIP, LIVP, TROPI #### [place] [id number] Manager Respiratory Care: Kris Pardo MD Lymphocytes/100 WBC (Bld) 13 % Low 24-44 [facility] Comment on above: Performed By: #### BMP, CDP, LIP, LIVP, TROPI #### [address], [place] [phone] Manager Respiratory Care: Kris Pardo MD MCH (RBC) [Entitic mass] 29.9 pg Normal 26-34 [facility] Comment on above: Performed By: #### BMP, CDP, LIP, LIVP, TROPI #### [address] [phone] Manager Respiratory Care: Kris Pardo MD MCHC (RBC) [Mass/Vol] 33.9 g/dL Normal 31-37 [facility] Comment on above: Performed By: #### BMP, CDP, LIP, LIVP, TROPI #### [place] [address] Manager Respiratory Care: Kris Pardo MD MCV (RBC) [Entitic vol] 88.0 fL Normal 80-100 [facility] Comment on above: Performed By: #### BMP, CDP, LIP, LIVP, TROPI #### [place] [address] Manager Respiratory Care: Kris Pardo MD Monocytes (Bld) [#/Vol] 0.60 10*3/uL Normal 0.1-1.2 [facility] Comment on above: Performed By: #### BMP, CDP, LIP, LIVP, TROPI #### [address] [address] Manager Respiratory Care: Kris Pardo MD Monocytes/100 WBC (Bld) 6 % Normal 2-11 [facility] Comment on above: Performed By: #### BMP, CDP, LIP, LIVP, TROPI #### [address] [phone] Manager Respiratory Care: Kris Pardo MD Neutrophil (Seg) 75 % High 36-66 [facility] Comment on above: Performed By: #### BMP, CDP, LIP, LIVP, TROPI #### [place] [address] Manager Respiratory Care: Kris Pardo MD Platelet mean volume (Bld) [Entitic vol] 7.6 fL Normal 6.0-12.0 [facility] Comment on above: Performed By: #### BMP, CDP, LIP, LIVP, TROPI #### [place] [address] Manager Respiratory Care: Kris Pardo MD Platelets (Bld) [#/Vol] 287 10*3/uL Normal 140-450 [facility] Comment on above: Performed By: #### BMP, CDP, LIP, LIVP, TROPI #### [place] [address] Manager Respiratory Care: Kris Pardo MD RBC (Bld) [#/Vol] 4.20 10*6/uL Normal 4.0-5.2 [facility] Comment on above: Performed By: #### BMP, CDP, LIP, LIVP, TROPI #### [place] [address] Manager Respiratory Care: Kris Pardo MD WBC (Bld) [#/Vol] 9.4 10*3/uL Normal 3.5-11.0 [facility] Comment on above: Performed By: #### BMP, CDP, LIP, LIVP, TROPI #### [place] [address] Manager Respiratory Care: Kris Pardo MD CT ABDOMEN PELVIS W [...] Saeed Ortega MD 10/25/22 Final result Normal [facility] Lipaseon 10-25-2022 Lipase [Catalytic activity/Vol] 26 U/L Normal 13-60 [facility] Comment on above: Performed By: #### BMP, CDP, LIP, LIVP, TROPI #### [place] [phone] [place] [address] Manager Respiratory Care: Kris Pardo MD Liver Profileon 10-25-2022 Albumin [Mass/Vol] 4.2 g/dL Normal 3.5-5.2 [facility] Comment on above: Performed By: #### BMP, CDP, LIP, LIVP, TROPI #### [place] [address] Manager Respiratory Care: Kris Pardo MD Albumin/Glob Ratio 1.7 Normal 1.0-2.5 [facility] Comment on above: Performed By: #### BMP, CDP, LIP, LIVP, TROPI #### [place] [address] Manager Respiratory Care: Kris Pardo MD Alkaline Phos 67 U/L Normal 35-104 [facility] Comment on above: Performed By: #### BMP, CDP, LIP, LIVP, TROPI #### [place] [address] Manager Respiratory Care: Kris Pardo MD ALT [Catalytic activity/Vol] 23 U/L Normal 5-33 [facility] Comment on above: Performed By: #### BMP, CDP, LIP, LIVP, TROPI #### [place] [address] Manager Respiratory Care: Kris Pardo MD AST [Catalytic activity/Vol] 21 U/L Normal <32 [facility] Comment on above: Performed By: #### BMP, CDP, LIP, LIVP, TROPI #### [place] [address] Manager Respiratory Care: Kris Pardo MD Bilirubin [Mass/Vol] 0.3 mg/dL Normal 0.3-1.2 [facility] Comment on above: Performed By: #### BMP, CDP, LIP, LIVP, TROPI #### [place] [address] Manager Respiratory Care: Kris Pardo MD Bilirubin, Indirect 0.2 mg/dL Normal 0.0-1.0 [facility] Comment on above: Performed By: #### BMP, CDP, LIP, LIVP, TROPI #### [place] [address] Manager Respiratory Care: Kris Pardo MD Bilirubin.indire ct [Mass/Vol] 0.1 mg/dL Normal <0.3 [facility] Comment on above: Performed By: #### BMP, CDP, LIP, LIVP, TROPI #### [place] [address] Manager Respiratory Care: Kris Pardo MD Protein [Mass/Vol] 6.7 g/dL Normal 6.4-8.3 [facility] Comment on above: Performed By: #### BMP, CDP, LIP, LIVP, TROPI #### [place] [address] Manager Respiratory Care: Kris Pardo MD Troponinon 10-25-2022 Troponin, High Sens 7 ng/L Normal 0-14 [facility] Comment on above: Result Comment: High Sensitivity Troponi n values cannot be compared with other Troponin methodologies. Performed By: #### B MP, CDP, LIP, LIVP, TROPI #### [place] [address] Manager Respiratory Care: Kris Pardo MD UA w/Reflex Cultureon 2022 Bilirubin, SemiQt,Ur Negative Normal NEG [facility] Comment on above: Performed By: #### TYS #### [place] [phone] Manager Respiratory Care: Kris Pardo MD Blood, Urine MODERATE Abnormal NEG [facility] Comment on above: Performed By: #### TYS #### [address] [address] Manager Respiratory Care: Krsi Pardo MD Clarity (U) Clear Normal CLEAR [facility] Comment on above: Performed By: #### TYS #### [address] [address] Manager Respiratory Care: Kris Pardo MD Color (U) Yellow Normal YEL [facility] Comment on above: Performed By: #### TYS #### [address] [address] Manager Respiratory Care: Kris Pardo MD Glucose Ql (U) Negative Normal NEG [facility] Comment on above: Performed By: #### TYS #### [address] [address] Manager Respiratory Care: Kris Pardo MD Ketones Ql (U) Negative Normal NEG [facility] Comment on above: Performed By: #### TYS #### [address] [address] Manager Respiratory Care: Kris Pardo MD Leukocyte esterase Test strip Ql (U) Negative Normal NEG [facility] Comment on above: Performed By: #### TYS #### [address] [phone] Manager Respiratory Care: Kris Pardo MD Nitrite,Ur Negative Normal NEG [facility] Comment on above: Performed By: #### TYS #### [address] [phone] Manager Respiratory Care: Kris Pardo MD PH,Ur 7.0 Normal 5.0-8.0 [facility] Comment on above: Performed By: #### TYS #### [place] [address] Manager Respiratory Care: Kris Pardo MD Protein Ql (U) Negative Normal NEG [facility] Comment on above: Performed By: #### TYS #### [place] [address] Manager Respiratory Care: rKis Pardo MD Spec. [place],Ur 1.006 Normal 1.005-1.030 [facility] Comment on above: Performed By: #### TYS #### [place] [address] Manager Respiratory Care: Kris Pardo MD Urobilinogen,Ur Normal Normal 0.0-1.0 [facility] Comment on above: Performed By: #### TYS #### [place] [address] Manager Respiratory Care: Kris Pardo MD Urinalysis,Microon 3 Bacteria FEW Abnormal NONE [facility] Comment on above: Performed By: #### TYS #### [place] [address] Manager Respiratory Care: Kris Pardo MD Epithelial cells LM Ql (Urine sed) 0 TO 2 Normal 0-5 [facility] Comment on above: Performed By: #### TYS #### [place] [address] Manager Respiratory Care: Kris Pardo MD Other Observations Utilizing a urinalysis as the only screening method to exclude a potential Abnormal NREQ [facility] Comment on above: Result Comment: uropathogen can be unrel iable in many patient populations. Rapid screening tests are less sensitive than culture and if UTI is a clinical possibility, culture should be considered despite a negative urinalysis. Performed By: #### T YS #### [place] [address] Manager Respiratory Care: Kris Pardo MD Urine RBC's 20 TO 50 Normal 0-2 [facility] Comment on above: Performed By: #### TYS #### [place] [address] Manager Respiratory Care: Kris Pardo MD Urine WBC's 0 TO 2 Normal 0-5 [facility] Comment on above: Performed By: #### TYS #### [place] [address] Manager Respiratory Care: Kris Pardo MD Hgb/Hcton 10-21-2022 Hematocrit (Bld) [Volume fraction] 38.0 % Normal 36-46 [facility] Comment on above: Performed By: #### HH #### [place] [address] Manager Respiratory Care: Kris Pardo MD Hemoglobin (Bld) [Mass/Vol] 12.6 g/dL Normal 12.0-16.0 [facility] Comment on above: Performed By: #### HH #### [place] [address] Manager Respiratory Care: Kris Pardo MD OPERATIVE REPORTon OPERATIVE REPORT [address] [phone] OPERATIVE REPORT PATIENT NAME: CHERYL HECTOR : 1965 MED REC NO: [id number] ROOM: ACCOUNT NO: [id number] ADMIT DATE: 10/21/2022 PROVIDER: Pete Rod DO [...] the right upper quadrant as an accessory technical assistant port. The robot was docked with [...] The vaginal cuff was then closed with [id number] mucosal-mucosal Vicryl sutures incorporating the cuff angles [...] fascial closure (more content not included)... Normal [facility] Surgical Pathologyon 023 Surgical Pathology (NOTE) Path Number: [id number] -- Diagnosis -- A. UTERUS, CERVIX, AND [...] lumen lined by a meza-pink, soft mucosa. Estate Planning Paralegal sections are submitted in [facility] as follows: 1 anterior cervix 2 posterior cervix 3 endomyometrial polyps 4 anterior endomyometrium 5 posterior endomyometrium 6-7 intramural and subserosal nodules, customer response representative 8-9 one entire fallopian tube 10-12 one entire fallopian tube. B. CHERYL HECTOR VAGINAL MUCOSA Received in formalin are three fragments of meza-calvillo, wrinkled and ragged vaginal mucosa ranging from 1.6 to 7.5 cm. Sectioning reveals meza-pink, rubbery cut surfaces with no obvious masses or lesions identified. Estate Planning Paralegal sections 1c. tm Microscopic Description A, B. Microscopic examination performed. Processing Lab: [address] [address] Interpretation Performed at [address] [address] SURGICAL PATHOLOGY CONSULTATION Patient Name: CHERYL HECTOR [facility] Rec: [id number] [facility] ANATOMIC PATHOLOGY [address] [place] [address]. [address] Normal [facility] Type + Screenon 10-21-2022 Type + Screen Sample Expiration 10/24/2022,2359 Arm Band Number [id number] ABO/Rh(D) O POSITIVE Antibody Screen NEGATIVE Normal [facility] Comment on above: Performed By: #### TYS #### [address] [address] Manager Respiratory Care: Kris Pardo MD Type + Screenon 10-14-2022 Type + Screen Sample Expiration 10/24/2022,2359 Arm Band Number [id number] ABO/Rh(D) O POSITIVE Antibody Screen NEGATIVE Normal [facility] Comment on above: Performed By: #### TYS #### [facility] [address] [place] [id number] Manager Respiratory Care: Kris Pardo MD Office Visit (Cardiology)on 09-12-2022 [...] try to retrieve her recent labs from [place] 4. The patient was advised to lose [...] Signs Recorded: 12Sep2022 12:04PM Heart Rate70, Apical Gmrbplcu488, LUE, Sitting Usvwisddr98, LUE, Sitting Height5 ft 4 in Hhvdxy381 lb BMI Lpvvihtgrh92.67 kg/m2 BSA Calculated1.81 Tobacco Useb) No PHQ-2 #1. Over the last 2 weeks have you felt down, depressed or hopeless? (If yes, answer PHQ-9 below)No PHQ-2 #2. Over the last 2 weeks have you felt little interest or pleasure in doin (more content not included)... Normal [facility] Tobacco Screening.on 023 Adult depression screening assessment No [facility] [employer] DO Work Phone: Fall risk assessment a) No falls within the last year [facility] [employer] DO Work Phone: Tobacco use status CPHS b) No [facility] [employer] DO Work Phone: Ambulatory Visit Summaryon 0 [...] Cholecystectomy Hypotension Kidney stone Plantar fasciitis Normal [facility] General Surgery Office/Clini c Noteon 06-05-2022 [...] SARS-CoV-2 (COVID-19) mRNA-1273 vaccine 04/21/2020 Recorded Normal [facility] Comment on above: Result Comment: Electronically Signed By : BRENDA SOTO, Cristo Dueñas\Date and Time Signed: 06/05/22 16:56 EDT Pathology Noteon 06-03-2022 Pathology Note [id number]:127 [facility] Outside Colonoscopyon 2022 Outside Colonoscopy [id number]#1.00CD:127 [facility] Reminderson 05-30-2022 Reminders - From: Nedra Juares LPN To: GSN - Clinical; Sent: 05/30/2022 09:37:12 EST Show up: 05/01/2032 07:00:00 EST Subject: colonoscopy recall Due Date/Time: 05/29/2032 07:00:00 EST Reminder/Recall Patient is due for screening colonoscopy 05/29/2032. [facility] Facesheeton 05-07-2022 Facesheet [id number]:127 [facility] Consent for Procedure/Surger yon 05-06-2022 Consent for Procedure/Surger y [id number]#1.00CD:127 Normal [facility] Ambulatory Visit Summaryon 0 05-03-2022 Ambulatory [...] for. Cholecystectomy Hypotension Kidney stone Plantar fasciitis [facility] Physician Referralon 023 Physician Referral [id number]:127 Normal [facility] MM screening mammo BI w/CADo n 01-24-2022 MM screening mammo BI w/CAD [facility] [place] [address] [place] [address] Mammography Report Signed Patient: Cheryl Hector MR#: [id number] : 1965 Acct:[id number] Age/Sex: 56 / F ADM Date: 01/24/22 Loc: [place] Room: Type: [facility] Attending Dr: Jose Dangelo MD Copies [...] Kunal Osorio M.D.01/24/2022 4:44 PM Dictation Location: [facility] Transcribed By: [facility] 01/24/22 1644 Dictated By: Kunal Osorio II, MD 01/24/22 1640 Signed By: 01/24/22 1644 [facility] Tobacco Screening.on 022 Adult depression screening assessment No [facility] [employer] DO Work Phone: Tobacco use status CPHS b) No [facility] DO Work Phone: Vital Signs Date Time Vital Sign Value Performing Clinician Facility 08-21-2023 09:30-0400 Body height 162.6 cm Vamsi Serrano MD Work Phone: [facility] 08-21-2023 09:30-0400 Body mass index (BMI) [Ratio] 29.87 kg/m2 Vamsi Serrano MD Work Phone: [facility] 08-21-2023 09:30-0400 Body weight 78.93 kg Vamsi Serrano MD Work Phone: [facility] 08-21-2023 09:30-0400 Diastolic blood pressure 88 mm[Hg] Vamsi Serrano MD Work Phone: [facility] 08-21-2023 09:30-0400 Heart rate 74 /min Vamsi Serrano MD Work Phone: [facility] 08-21-2023 09:30-0400 Systolic blood pressure 126 mm[Hg] Vamsi Serrano MD Work Phone: [facility] 08-13-2023 12:58-0400 Body height 162.6 cm Deirdre Montalvo MD Work Phone: [facility] 08-13-2023 12:58-0400 Body mass index (BMI) [Ratio] 29.78 kg/m2 Deirdre Montalvo MD Work Phone: [facility] 08-13-2023 12:58-0400 Body weight 78.7 kg Deirdre Montalvo MD Work Phone: [facility] 08-13-2023 12:58-0400 Diastolic blood pressure 96 mm[Hg] Deirdre Montalvo MD Work Phone: [facility] Comment on above: ALICIA BP Average 08-13-2023 12:58-0400 Heart rate 68 /min Deirdre Montalvo MD Work Phone: [facility] 08-13-2023 12:58-0400 SaO2% (BldA) [Mass fraction] 100 % Deirdre Montalvo MD Work Phone: [facility] 08-13-2023 12:58-0400 Systolic blood pressure 150 mm[Hg] Deirdre Montalvo MD Work Phone: [facility] Comment on above: ALICIA BP Average 09-12-2022 12:04-0400 Body height 162.56 cm Janna E Mast Work Phone: [facility] 600 DO Work Phone: 09-12-2022 12:04-0400 Body mass index (BMI) [Ratio] 28.67 kg/m2 Janna E Mast Work Phone: [facility] 600 DO Work Phone: 09-12-2022 12:04-0400 Body surface area Derived from formula 1.81 m2 Janna E Mast Work Phone: [facility] 600 DO Work Phone: 09-12-2022 12:04-0400 Body weight 75.75 kg Janna E Mast Work Phone: [facility] [employer] 600 DO Work Phone: 09-12-2022 12:04-0400 Diastolic blood pressure 70 mm[Hg] Janna E Mast Work Phone: [facility] [employer] 600 DO Work Phone: 09-12-2022 12:04-0400 Heart rate 70 /min Janna E Mast Work Phone: [facility] 600 DO Work Phone: 09-12-2022 12:04-0400 Systolic blood pressure 104 mm[Hg] Janna E Mast Work Phone: [facility] 600 DO Work Phone: 05-03-2022 15:33-0500 Blood Pressure Location Cristo NILL [facility] [place] 05-03-2022 15:33-0500 Diastolic blood pressure 96 mm[Hg] Cristo NILL [facility] [place] 05-03-2022 15:33-0500 Heart rate 70 /min Cristo NILL [facility] [place] 05-03-2022 15:33-0500 Respiratory rate 16 /min Cristo NILL [facility] [place] 05-03-2022 15:33-0500 Systolic blood pressure 134 mm[Hg] Cristo NILL [facility] [place] 05-22-2021 16:14-0500 Diastolic blood pressure 85 mm[Hg] Janna E Mast Work Phone: [facility] 250 DO Work Phone: 05-22-2021 16:14-0500 Systolic blood pressure 122 mm[Hg] Janna E Mast Work Phone: [facility] 250 DO Work Phone: 05-22-2021 15:57-0500 Body height 162.56 cm Janna E Mast Work Phone: [facility] 250 DO Work Phone: 05-22-2021 15:57-0500 Body mass index (BMI) [Ratio] 28.32 kg/m2 Janna E Mast Work Phone: [facility] 250 DO Work Phone: 05-22-2021 15:57-0500 Body surface area Derived from formula 1.8 m2 Janna E Mast Work Phone: [facility] 250 DO Work Phone: 05-22-2021 15:57-0500 Body weight 74.84 kg Janna E Mast Work Phone: [facility] 250 DO Work Phone: 05-22-2021 15:57-0500 Diastolic blood pressure 100 mm[Hg] Janna E Mast Work Phone: [facility] 250 DO Work Phone: 05-22-2021 15:57-0500 Heart rate 80 /min Janna E Mast Work Phone: [facility] 250 DO Work Phone: 05-22-2021 15:57-0500 Systolic blood pressure 140 mm[Hg] Janna E Mast Work Phone: [facility] 250 DO Work Phone: 05-16-2021 10:56-0500 102.2 1 Janna E Mast Work Phone: [facility] 250 DO Work Phone: Comment on above: FSLDL Encounters Encounter Date Encounter Type Care Provider Facility Start: 08-21-2023 End: 08-21-2023 [facility] Start: 08-21-2023 End: 08-21-2023 Office outpatient visit 25 minutes Vamsi Serrano MD Work Phone: [facility] Comment on above: Takotsubo syndrome ( Primary Dx); Mixed hyperlipidemia; BMI 29.0-29.9,adult; Preop cardiovascular exam Start: 08-21-2023 End: 08-21-2023 Patient encounter status Vamsi Serrano MD Work Phone: [facility] Work Phone: Start: 08-14-2023 ambulatory Deirdre Montalvo MD Work Phone: Endocrinology Start: 08-14-2023 Patient encounter procedure Deirdre Montalvo MD Work Phone: Endocrinology Comment on above: Important Medical dx history info not mentioned Start: 08-13-2023 End: 08-13-2023 ambulatory SERA LAMBERT Facility:[facility] Start: 08-13-2023 End: 08-13-2023 Patient encounter procedure Deirdre Montalvo MD Work Phone: Endocrinology Comment on above: Low serum cortisol l evel (Primary Dx); Prediabetes; Uncontrolled hypertension Start: 10-25-2022 End: 10-25-2022 Emergency department patient visit [facility][id number] [facility] Start: 10-21-2022 End: 10-21-2022 ambulatory PETE ROD [facility] Start: 10-14-2022 End: 10-15-2022 ambulatory SERA LAMBERT [facility] Start: 09-12-[address] Vamsi Serrano Facility: Start: 09-12-2022 Patient encounter procedure Janna Alexander Work Phone: [facility] 600 DO Work Phone: Start: 06-05-2022 End: 06-06-2022 ambulatory Cristo CROCKER Facility: [facility] Start: 06-05-2022 End: 06-05-2022 Patient encounter procedure Cristo CROCKER General [facility] Start: 06-03-2022 Telephone encounter Janna Chaves t Work Phone: [facility] 600 DO Work Phone: Start: 05-29-2022 End: 05-30-[address] CRISTO CROCKER . Facility: Start: 05-03-2022 End: 05-04-2022 ambulatory Sera Lambert Facility:[facility] Start: 05-03-2022 End: 05-03-2022 Patient encounter procedure Cristo CROCKER General [facility] Start: 04-25-2022 ambulatory Cristo CROCKER Facility : [facility] Start: 01-24-2022 End: 01-24-2022 ambulatory Sera Lambert Facility:[facility] Start: 05-22-2021 Office outpatient vi sit 15 minutes Janna E Mast Work Phone: [facility] 250 DO Work Phone: Start: 07-02-2017 Ambulatory VAMSI SERRANO Faci lity:1532 Patient encounter status Janna E Mast Work Phone: [facility] 600 DO Work Phone: Procedures Date Procedure Procedure Detail Performing Clinician Start: 08-21-2023 Ecg routine ecg w/least 12 lds w/i&r Vamsi Serrano MD Work Phone: Start: 05-29-2022 Colonoscopy Vamsi Serrano MD Work Phone: Start: 05-29-2022 Colonoscopy Cristo CROCKER Start: 05-29-2022 Esophagogastroduodenoscopy Cristo CROCKER Start: 09-12-2017 Loop electrosurgical excision procedure Cristo CROCKER Comment on above: Leep cone excision and endocervical cure ttage Start: 12-29-2014 Cystourethroscopy with dilation of urethral stricture Cristo CROCKER Comment on above: also 10/05/2013 Start: 02-21-2011 Cystourethroscopy with dilation of urethral stricture Cristo CROCKER Cardiac catheterisation Иван ael SCOTL Cardiac catheterization Janna E Mast Work Phone: [...] Treatment Date Care Activity Detail Author Start: 05-29-2032 Screening for malign ant neoplasm of colon [facility] Start: 10-25-2025 Diabetes Screening Diabetes Screenin g [facility] Start: 09-14-2024 End: 09-14-2024 Patient encounter procedure 09/14/2024 9:20 AM EDT Office Visit [facility] [address] [facility] [address] [place] [address] Vamsi Serrano MD [address] [facility] [address], [facility] 250 [place] [address] [facility] Start: 11-23-2023 Influenza vaccination Influenz a Vaccine (Season Ended) [facility] Start: 09-16-2023 FUV, Provider: Vamsi Serrano, Status: Pen, Time: 10:10 AM FUV, Provider: Vamsi Serrano, Status: Pen, Time: 10:10 AM [facility] 600 DO Work Phone: Start: 08-21-2023 End: 08-20-2024 Lipid 1996 panel - Serum or Plasma Lipid Panel Lab Routine Mixed hyperlipidemia Expected: 08/21/2023 (Approximate), Expires: 08/20/2024 [facility] Service Area Work Phone: Comment on above: Expected: 08/21/2023 (Approximate), Expires: 08/20/2024 Start: 2023 RSV patient s and/or patients aged 60+ years (1 - 1-dose 60+ series) RSV patients and/or patients aged 60+ years (1 - 1-dose 60+ series) [facility] Start: 2023 RSV Vaccine (1 - 1-d ose 60+ series) RSV Vaccine (1 - 1-dose 60+ series) [facility] Start: 03-24-2023 Behavioral Health Screening Behavioral Health Screening [facility] Start: 11-22-2022 Covid-19 Vaccine ( season) Covid-19 Vaccine ( season) [facility] Start: 10-08-2022 FUV, Provider: Vamsi Serrano, Status: Pen, Time: 2:00 PM FUV, Provider: Vamsi Serrano, Status: Pen, Time: 2:00 PM -[facility] 600 DO Work Phone: Start: 06-04-2022 FUV, Provider: Vamsi Serrano, Status: Pen, Time: 3:50 PM FUV, Provider: Vamsi Serrano, Status: Pen, Time: 3:50 PM [facility] 250 DO Work Phone: Start: 07-24-2013 Shingrix Vaccine (1 of 2) Shingrix Vaccine (1 of 2) [facility] Start: 07-24-2013 Zoster Vaccines (1 o f 2) Zoster Vaccines (1 of 2) [facility] Start: 07-24-2008 Lipid panel Lipid Screening [facility] Start: 07-24-2008 Screening for malign ant neoplasm of colon [facility] Start: 2003 Screening for malign ant neoplasm of breast [facility] Start: 02-18-2002 Hepatitis B Vaccines (2 of 3 - 19+ 3-dose series) Hepatitis B Vaccines (2 of 3 - 19+ 3-dose series) [facility] Start: 07-24-1993 Screening for malign ant neoplasm of cervix HPV Testing [facility] Start: 07-24-1985 DTaP/Tdap/Td Vaccine s (1 - Tdap) DTaP/Tdap/Td Vaccines (1 - Tdap) [facility] Start: 07-24-1984 Screening for malign ant neoplasm of cervix [facility] Start: 07-24-1982 Urine microalbumin profile DTaP,Tdap,Td Vaccine (1 - Tdap) [facility] Start: 07-24-1981 Diabetes mellitus screening Diabetes Screening [facility] Start: 07-24-1981 Hepatitis C screening Hepatitis C Sc reening [facility] Start: 07-24-1981 HIV screening HIV Screening [facility] Start: 07-24-1964 MMR Vaccines (1 of 1 - Standard series) MMR Vaccines (1 of 1 - Standard series) [facility] Start: 1965 HIV screening HIV Screening [facility] Start: 1965 Lipid panel Lipid Panel [facility] Start: 1965 Screening for malign ant neoplasm of colon [facility] Start: 1965 Yearly Adult Physical Yearly Adult P hysical [facility] Immunizations Immunization Date Immunization Notes Care Provider Fa [facility] 01-23-2022 influenza, seasonal, injectable Janna E Mast Work Phone: [facility] 600 DO Work Phone: 01-23-2022 influenza virus vaccine, unspecified formulation Deirdre Montalvo MD Work Phone: [facility] 01-22-2022 influenza virus vaccine, unspecified formulation Cristo CROCKER [facility] [place] 03-19-2021 Moderna COVID-19 Vaccine 100 MCG/0.5ML Intramuscular Suspension Janna E Mast Work Phone: [facility] [place] 05-19-2020 Moderna COVID-19 Vaccine 100 MCG/0.5ML Intramuscular Suspension Janna E Mast Work Phone: [facility] [place] 04-21-2020 Moderna COVID-19 Vaccine 100 MCG/0.5ML Intramuscular Suspension Janna E Mast Work Phone: [facility] [place] 01-18-2020 influenza virus vaccine, unspecified formulation Janna E Mast Work Phone: [facility] 250 DO Work Phone: 12-23-2019 influenza virus vaccine, unspecified formulation Janna E Mast Work Phone: [facility] 250 DO Work Phone: 12-23-2019 influenza, seasonal, injectable Vamsi Serrano MD Work Phone: [facility] Work Phone: 01-06-2018 influenza virus vaccine, unspecified formulation Janna E Mast Work Phone: [facility] 250 DO Work Phone: 12-22-2016 influenza virus vaccine, unspecified formulation Janna E Mast Work Phone: [facility] 250 DO Work Phone: 01-21-2002 hepatitis B vaccine, adult dosage Janna E Mast Work Phone: [facility] 250 DO Work Phone: Payers Date Payer Category Payer Self-pay 2014 Unknown 1965 Unknown [id number] 2.16.84 [id number] 1965 Unknown [id number] 2.16.8 [id number] 1965 Unknown [id number] 2.16.8 [id number] 1965 Unknown [id number] 2.16.8 [id number] 1965 Unknown [id number] 2.16.8 [id number] 1965 Unknown [id number] 2.16. [id number] 1965 Unknown [id number] 2.16. [id number] 1965 Unknown [id number] 2.16. [id number] 1965 Unknown [id number] 2.16. [id number] 1965 Unknown [id number] 2.16.8 [id number] 1959 Unknown [id number] Unknown [id number] 2.16.8 [id number] Social History Date Type Detail Facility Start: 08-13-2023 End: 08-21-2023 Social alcohol use Social alcohol use [place] [address] DO Work Phone: Start: 05-03-2022 End: 08-21-2023 Tobacco smoking status Never smoked tobacco (finding) [facility] [place] Tobacco smoking status Never [facility] [place] Start: 08-13-2023 End: 08-21-2023 Sex Assigned At Female [facility] Start: 08-13-2023 End: 08-21-2023 Tobacco use and exposure Smokeless tobacco non-user [facility] Start: 08-13-2023 End: 08-21-2023 Alcohol intake Current drinker of alcohol (finding) [facility] Start: 08-13-2023 Alcohol Comment Once a week or less. [facility] Start: 1965 Sex Assigned At Not on file [facility] Start: 08-11-2023 End: 08-21-2023 Exposure to SARS-CoV-2 (event) Not sure [facility] NEGATED: Highlighted rowStart: NINF History of tobacco use Passive smoker [facility] Functional Status Date Assessment Result Facility 05-03-2022 Functional Status N/A [facility] [place] Clinical Notes 05-03-2022 to 08-21-2023 Vamsi Serrano MD - 08/21/2023 9:30 AM EDTPatient Deirdre Aguilera MD - 08/13/2023 12:53 PM EDT Note Date & Type Note Facility 08-21-2023 History of Present illness Narrative Subjective Cheryl Hector is a 58 y.o. female Chief Complaint Follow-up; Pre-op Clearance HPI Patient is here for follow-up continue management for previous presentation with Takotsubo cardiomyopathy, hyperlipidemia, obesity and for preoperative risk assessment for [employer] surgery/procedure. Since last time I saw her she reports is feeling well. She denies any cardiac complaint. She underwent previous surgery for uterine prolapse and bladder repair without any cardiac issues or complication. Apparently she is scheduled to undergo a graft in the near future. Cardiac lizarraga she denies complaint of chest pain, palpitation, lightheadedness, dizziness or syncope. ASSESSMENT: 1. Prior presentation with stress cardiomyopathy/takotsubo syndrome, echocardiogram subsequently showed normal ejection fraction. She denies any symptoms and describe functional class I. No recurrence 2. Hyperlipidemia with documented history of intolerance to statin. Has not been compliant with her Zetia. Has not had any lipid profile 3. Mildly overweight. With no significant weight changes 4. preoperative risk assessment for hysterectomy. Patient is functional class I. She has normal LV systolic function and no coronary artery disease. Her operative risk is acceptable 5. Patient is scheduled to undergo a sleep study in the near future 6. Recent finding of adrenal adenoma seen by endocrinology Plan 1. Patient will remain on the same medication. And I advised her to be compliant with her Zetia 2. Patient was counseled regarding risk factor modification 3. We'll see him back in the office in 1 year I. I advised her to have a left fasting lipid profile 4. The patient was advised to lose weight and exercise. 5. I reviewed with patient preoperative cardiac risk for her upcoming surgery. I believe her operative risk is acceptable and she can proceed she was given permission to hold aspirin for 7 days prior to surgery Review of Systems Constitutional: Positive for malaise/fatigue. Cardiovascular: Positive for dyspnea on exertion. All other systems reviewed and are negative. Vitals: 08/21/23 0930 BP: 126/88 BP Location: Right arm Patient Position: Sitting Pulse: 74 Weight: 78.9 kg (174 lb) Height: 1.626 m (5' 4 ) EKG done in office today Objective Physical Exam Constitutional: Appearance: Normal appearance. HENT: Nose: Nose normal. Neck: Vascular: No carotid bruit. Cardiovascular: Rate and Rhythm: Normal rate. Pulses: Normal pulses. Heart sounds: Normal heart sounds. Pulmonary: Effort: Pulmonary effort is normal. Abdominal: General: Bowel sounds are normal. Palpations: Abdomen is soft. Musculoskeletal: General: Normal range of motion. Cervical back: Normal range of motion. Right lower leg: No edema. Left lower leg: No edema. Skin: General: Skin is warm and dry. Neurological: General: No focal deficit present. Mental Status: She is alert. Psychiatric: Mood and Affect: Mood normal. Behavior: Behavior normal. Thought Content: Thought content normal. Judgment: Judgment normal. Allergies Nitrofurantoin monohyd/m-cryst, Amoxicillin, Atorvastatin, Ezetimibe, Oxycodone, Pravastatin, Sankzxm-yiy-rgu reductase inhibitors, and Ciprofloxacin Current Medications Current Outpatient Medications: aspirin 81 mg EC tablet, Take 1 tablet (81 mg) by mouth once daily., Disp: , Rfl: ezetimibe (Zetia) 10 mg tablet, Take 1 tablet (10 mg) by mouth once daily at bedtime., Disp: , Rfl: lansoprazole (Prevacid) [address] capsule, 1 capsule (30 mg) once daily., Disp: , Rfl: loratadine-pseudoephedrine (Claritin-D 12 Hour) 5-120 mg 12 hr tablet, Take 1 tablet by mouth every 12 hours if needed., Disp: , Rfl: Assessment/Plan 1. Takotsubo syndrome Follow Up In Cardiology ECG 12 Lead 2. Mixed hyperlipidemia Lipid Panel Lipid Panel 3. BMI 29.0-29.9,adult 4. Preop cardiovascular exam Cheryl Hector is clear for surgery from a cardiac standpoint Scribe Attestation By signing my name below, I, Pilar Lugo LPN , Scribe attest that this documentation has been prepared under the direction and in the presence of Vamsi Serrano MD. Provider Attestation - Scribe documentation All medical record entries made by the Scribe were at my direction and personally dictated by me. I have reviewed the chart and agree that the record accurately reflects my personal performance of the history, physical exam, discussion and plan. documented in this encounter [facility] Work Phone: 08-21-2023 Instructions Roro Lagunas CMA - 08/21/2023 9:30 AM EDT Please bring all medicines, vitamins, and herbal supplements with you when you come to the office. Prescriptions will not be filled unless you are compliant with your follow up appointments or have a follow up appointment scheduled as per instruction of your physician. Refills should be requested at the time of your visit. documented in this encounter [facility] Work Phone: 08-19-2023 Note HNO ID: [id number] Author: DEIRDRE MONTALVO MD Service: ? Author Type: Physician Type: Progress Notes Filed: 08/19/2023 10:34 Note Text: The record sent by patient's PCP is reviewed. It included the same information as provided by the patient on her portal. Deirdre Montalvo MD, MORA [facility] 08-15-2023 Note HNO ID: [id number] Author: DEIRDRE MONTALVO MD Service: ? Author Type: Physician Type: Progress Notes Filed: 08/15/2023 11:40 Note Text: Addendum: In a follow up [employer] message, patient indicated a diagnosis of benign adrenal adenoma. A copy of the CT scan report is requested. Also, I added labs for aldosterone, renin and BMP. She has uncontrolled/untreated hypertension. Deirdre Montalvo MD, MORA [facility] 08-13-2023 Note HNO ID: [id number] Author: DEIRDRE MONTALVO MD Service: ? Author [...] (PREVACID) 30 mg capsule Gastric Acid Secretion Neuro Psych Sales Specialist - Proton Pump Inhibitors (PPIs) loratadine-pseudoephedrine ER (CLARITIN-D 12 HOUR) 5-120 mg per tablet Take 1 tablet by mouth two times a day as needed. for allergy symptoms. 2nd Generation Antihistamine-Decongestant Combinations pantoprazole DR (PROTONIX) 40 mg tablet Gastric Acid Secretion Neuro Psych Sales Specialist - Proton Pump Inhibitors (PPIs) ALLERGIES Allergen [...] to be de (more content not included)... [facility] 08-13-2023 History of Present illness Narrative HISTORY [...] (PREVACID) 30 mg capsule Gastric Acid Secretion Neuro Psych Sales Specialist - Proton Pump Inhibitors (PPIs) loratadine-pseudoephedrine ER (CLARITIN-D 12 HOUR) 5-120 mg per tablet Take 1 tablet by mouth two times a day as needed. for allergy symptoms. 2nd Generation Antihistamine-Decongestant Combinations pantoprazole DR (PROTONIX) 40 mg tablet Gastric Acid Secretion Neuro Psych Sales Specialist - Proton Pump Inhibitors (PPIs) ALLERGIES Allergen [...] Montalvo MD, MORA documented in this encounter [facility] 05-29-2022 Note OPERATIVE NOTE OPERATION DATE: [...] good condition. CC: Patient's family physician [facility] 05-03-2022 Note Chief Complaint consultation for [...] (12/29/2014), Cystourethroscopy with (more content not included)... [facility] Comment on above: Result Comment: Elec tronically Signed By: BRENDA SOTO, Cristo Nascimento.bob\Date and Time Signed: 05/03/22 16:43 EST Evaluation + Plan note No data available for this section General Surgery [place] Evaluation note Diagnosis Low serum cortisol level- Primary Glucocorticoid deficiency Prediabetes Other abnormal glucose Uncontrolled hypertension Unspecified essential hypertension [facility] Takotsubo syndrome- Primary Mixed hyperlipidemia BMI 29.0-29.9,adult Preop cardiovascular exam Pre-operative cardiovascular examination documented in this encounter [facility] Work Phone: History of Present illness Narrative* Is here for [...] 5. Reviewed with her her recent lab [facility] Reviewed-[place] 250 DO Work Phone: History of Present [...] try to retrieve her recent labs from [place] * 4. The patient was advised to lose weight and exercise. * 5. I reviewed with patient preoperative cardiac risk for her upcoming hysterectomy. I believe her operative risk is acceptable and she can proceed she was given permission to hold aspirin for 7 days prior to [facility] 600 DO Work Phone: Hospital Discharge instructions No data available for this section General Surgery [place] Progress note No data available for this section General Surgery [place] Summary Purpose Family History No Family History [...] Referral Specialty Diagnoses / Procedures Referred By Robbin muñoz Referred To Contact Diagnoses Takotsubo syndrome Procedures ECG 12 Lead Vamsi Serrano MD [address] [place] [address] 2, Keith [address] [place] [id number] Referral ID Status Reason Start Date Expiration Date V isits Requested Visits Authorized [id number] Authorized 08/21/2023 08/20/2024 1 1 Specialty Diagnoses / Procedures Referred By Robbin muñoz Referred To Contact Cardiology Diagnoses Takotsubo syndrome Procedures Follow Up In Cardiology Vamsi Serrano MD [address] [facility] 2, [address] [place] [address] Vamsi Serrano MD [address] [facility] 2, [address] [place] [address] Referral ID Status Reason Start Date Expiration Date V isits Requested Visits Authorized [id number] Authorized 08/21/2023 08/20/2024 1 1 Specialty Diagnoses / Procedures Referred By Robbin t Referred To Contact Diagnoses Prediabetes Procedures ENDOCRINOLOGY DIETITIAN VISIT (MNT) MEDICAL NUTRITION ASSMT&IVNTJ INDIV EACH 15 [place] MEDICAL NUTRITION ASSMT&IVNTJ INDIV EACH 15 [place] MEDICAL NUTRITION ASS[place]&IVNTJ INDIV EACH 15 [place] MEDICAL NUTRITION ASS[place]&IVNTJ INDIV EACH 15 [place] Deirdre Montalvo MD [address] [place] [address] Referral ID Status Reason Start Date Expiration Date Visits Requested Visits Authorized [id number] Authorized PCP Requested Referral 08/13/2023 08/12/2024 1 1 Additional Source Comments INFORMATION SOURCE (unrecogn ized section and content) DATE CREATED AUTHOR 09/11/2017 [facility] DATE CREATED AUTHOR AUTHOR'S ORGANIZ ATION 02/06/2022 [facility] DATE CREATED AUTHOR AUTHOR'S ORGANIZ ATION 06/03/2022 [facility] DATE CREATED AUTHOR AUTHOR'S ORGANIZ ATION 06/21/2022 [facility] DATE CREATED AUTHOR AUTHOR'S ORGANIZ ATION 09/13/2022 [facility] DATE CREATED AUTHOR AUTHOR'S ORGANIZ ATION 09/13/2022 [facility] DATE CREATED AUTHOR AUTHOR'S ORGANIZ ATION 11/08/2022 [facility] DATE CREATED AUTHOR AUTHOR'S ORGANIZ ATION 08/19/2023 [facility] DATE CREATED AUTHOR AUTHOR'S ORGANIZ ATION 08/22/2023 [facility] Ambulatory Patient Care team informatio n (unrecognized section and content) Vest Front Presser Relationship Specialty Start Date End Date Sera Lambert MD [address] [place] [address] PCP - General Family Medicine 08/13/23 Vest Front Presser Relationship Specialty Start Date End Date Sera Lambert MD [address] [place] [address] PCP - General Family Medicine 08/13/23 Vest Front Presser Relationship Specialty Start Date End Date Sera Lambert MD [address] [facility] [place] [address] PCP - General Family Medicine 08/21/23 Source Comments (unrecognize d section and content) In the event this informatio n is protected by the Federal Confidentiality of Alcohol and Drug Abuse Patient Records regulations: The Federal rules restrict any use of the information to criminally investigate or prosecute any alcohol or drug abuse patient.[facility] event this information is protected by the Federal Confidentiality of Alcohol and Drug Abuse Patient Records regulations: The Federal rules restrict any use of the information to criminally investigate or prosecute any alcohol or drug abuse patient.[facility] Reason for Visit (unrecogniz ed section and content) Reason Comments Follow-up Pre-op Clearance Specialty Diagnoses / Procedures Referred By Contac t Referred To Contact Diagnoses Takotsubo syndrome Procedures ECG 12 Lead Vamsi Serrano MD [address] [address] Referral ID Status Reason Start Date Expiration Date V isits Requested Visits Authorized [id number] Authorized 08/21/2023 08/20/2024 1 1 FOR RECORDS PERTAINING TO PATIENTS WHO ARE [...] BE BASED ON THE PRIMARY CLINICAL RECORDS. [facility] [facility]. provides no warranty or guarantee of the accuracy or completeness of information in this document.
== END 2023-08-23 20:01 | disposition home or self-care (01) ==
LOC: SLEEP 08-25 07:36
PROVIDERS: PCP Family Medicine; Visit Provider Family Medicine
DX: G47.33 Obstructive sleep apnea (adult) (pediatric) (principal)
CPT/HCPCS: 95810

== ENCOUNTER 2023-08-25 12:57 | Outpatient (OUT) | payer OTHER, SELFPAY ==
[2023-08-25 13:39] LABS: Basophils Absolute Auto 0.1 10^3/uL (0.0-0.1); Basophils Percent Auto 1.1 % (0.2-2.0); Eosinophils Absolute Auto 0.2 10^3/uL (0.0-0.7); Eosinophils Percent Auto 3.2 % (0.9-7.0); Hematocrit 37.1 % (36.0-48.0); Hemoglobin 11.9 g/dL (12.0-16.0); Immature Granulocytes Abs Auto 0.01 10^3/uL (0.00-0.03); Immature Granulocytes Pct Auto 0.2 % (0.0-0.5); Lymphocytes Percent Auto 30.4 % (20.5-60.0); Mean Corpuscular HGB Conc 32.1 g/dL (29.9-35.2); Mean Corpuscular Hemoglobin 28.1 pg (26.7-34.0); Mean Corpuscular Volume 87.5 fL (81.0-99.0); Mean Platelet Volume 9.9 fL (9.5-13.5); Monocytes Absolute Auto 0.4 10^3/uL (0.3-0.8); Monocytes Percent Auto 6.5 % (1.7-12.0); Neutrophils Absolute Auto 3.9 10^3/uL (1.4-6.5); Neutrophils Percent Auto 58.6 % (43.0-75.0); Platelet Count 325 10^3/uL (150-450); Red Blood Count 4.24 10^6/uL (4.20-5.40); Red Cell Distribution Width 13.3 % (11.0-15.0); White Blood Count 6.6 10^3/uL (4.0-11.0)
== END 2023-08-25 12:58 | disposition home or self-care (01) ==
LOC: LAB 12:58
PROVIDERS: PCP Family Medicine
DX: N81.10 Cystocele, unspecified (principal)
CPT/HCPCS: 36415; 85025

== ENCOUNTER 2023-09-06 16:37 | Emergency (ER) | payer OTHER, SELFPAY ==
[2023-09-06] VITALS (10 sets, daily range): BP systolic 122–137; BP diastolic 60–73; PULSE 69–81; TEMP 36.6–36.8; O2SAT 95–99; BMI 29.2
--- NOTE | 2023-09-06 16:56 | ECG_ITS ---
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
--- NOTE | 2023-09-06 16:57 | ED.GENADUL1 ---
HPI HPI - General Adult General Chief complaint: Arrhythmia/Palpitations Stated complaint: ARRYTHMIA, SURGERY FRIDAY DOCTOR SENT IN Time Seen by Provider: 09/06/23 16:43 Source: patient Mode of arrival: Wheelchair Limitations: no limitations History of Present Illness HPI narrative: Patient is a 58-year-old female who presents to the emergency department with concern for multiple complaints, primarily palpitations this afternoon. Patient had surgery in [place] 6 days ago for pelvic floor issues. She has been doing well. Patient and her were out running errands this afternoon when the patient felt fluttering in her chest. She has no chest pain. She states she feels minimally short of breath and her states that she was lightheaded earlier today. She is currently on antibiotics from [place]. She has had no fevers, vomiting. She has a history of [place] at age 48 although she was not found to have any coronary artery disease on her cardiac catheterization and was told that her heart attack was due to stress . She sees a experimental mechanic electrical in [place]. No medications taken prior to arrival. Patient has no focal medical complaints at this time other than feeling an occasional skipped beat in her chest, her states he listened and there were like 3 beats and a pause . Related Data Allergies Allergy/AdvReac Type Severity Reaction Status Date / Time amoxicillin Allergy Unknown Verified 09/06/23 16:46 ciprofloxacin [From Cipro] Allergy Unknown Verified 09/06/23 16:46 codeine Allergy Unknown Verified 09/06/23 16:46 latex Allergy Unknown Verified 09/06/23 16:46 nitrofurantoin Allergy Unknown Verified 09/06/23 16:46 [From Macrobid] oxycodone Allergy Unknown Verified 09/06/23 16:46 Dkklldh-AXB-XlA Reductase Allergy Unknown Verified 09/06/23 16:46 Inhibitor Opioid HPI Opioid Management Most Recent Opioid Data: No Data to Display Review of Systems ROS Constitutional Denies: fever or chills Ears, nose, mouth, and throat Denies: throat pain or nasal congestion Cardiovascular Reports: palpitations and lightheadedness; Denies: chest pain, edema or swelling of feet/ankles Respiratory Reports: shortness of breath; Denies: cough Gastrointestinal Denies: abdominal pain, nausea or vomiting Genitourinary Reports: pelvic pain Musculoskeletal Denies: back pain Integumentary/Breast Denies: rash Neurological Denies: headache Hematologic/Lymphatic Denies: easy bruising or easy bleeding Exam Narrative Exam Narrative: Gen.: Awake, alert, in no distress Head: Normocephalic, atraumatic ENT: Moist mucous membranes Respiratory: No respiratory distress, lungs clear bilaterally Cardio: Regular rate and rhythm Gastrointestinal: Abdomen is soft, nondistended and nontender to palpation Extremities: Moves extremities equally, no pedal edema Psych: Normal mood and affect Neuro: No focal neuro deficit Skin: Warm, dry, intact Constitutional Vital Signs, click to edit/add: Last Vital Signs Temp 97.9 F 09/06/23 19:06 Pulse 79 09/06/23 19:06 Resp 14 09/06/23 19:06 BP 134/73 09/06/23 19:06 Pulse Ox 97 09/06/23 19:06 O2 Del Method Room Air 09/06/23 19:06 Course Vital Signs Vital signs: Vital Signs Temperature 98.2 F 09/06/23 16:46 Pulse Rate 81 09/06/23 16:46 Respiratory Rate 18 09/06/23 16:46 Blood Pressure 137/60 09/06/23 16:46 Pulse Oximetry 97 09/06/23 16:46 Oxygen Delivery Method Room Air 09/06/23 16:46 Temperature 97.9 F 09/06/23 19:06 Pulse Rate 79 09/06/23 19:06 Respiratory Rate 14 09/06/23 19:06 Blood Pressure 134/73 09/06/23 19:06 Pulse Oximetry 97 09/06/23 19:06 Oxygen Delivery Method Room Air 09/06/23 19:06 Medical Decision Making MDM Narrative Medical decision making narrative: Normal cardiac monitoring, unremarkable EKG, stable lab studies including D-dimer, troponin and TSH. She has no complaints of chest pain in the ER. Chest x-ray was reviewed, no acute cardiopulmonary changes. Patient discharged home to follow-up with PCP, return to the ER if symptoms change or worsen Patient reevaluated by attending physician prior to discharge. She and her were given education and reassurance. SHARED APC VISIT, PHYSICIAN ATTESTATION: [id number] I performed a substantive part of the MDM during the patient?s E/M visit. I personally evaluated and examined the patient. I personally made or approved the documented management plan and acknowledge its risk of complications. Medical Records Medical records reviewed: Yes I reviewed the patient's medical records Lab Data Lab results reviewed: Yes I reviewed the patient's lab results Labs: Lab Results 09/06/23 09/06/23 Range/Units 16:50 17:27 WBC 9.5 (4.0-11.0) 10^3/uL RBC 3.96 L (4.20-5.40) 10^6/uL Hgb 11.2 L (12.0-16.0) g/dL Hct 33.8 L (36.0-48.0) % MCV 85.4 (81.0-99.0) fL MCH 28.3 (26.7-34.0) pg MCHC 33.1 (29.9-35.2) g/dL RDW 12.7 (11.0-15.0) % Plt Count 307 (150-450) 10^3/uL MPV 9.9 (9.5-13.5) fL Neut % (Auto) 63.7 (43.0-75.0) % Lymph % (Auto) 22.3 (20.5-60.0) % [place] % (Auto) 5.8 (1.7-12.0) % Eos % (Auto) 7.2 H (0.9-7.0) % Baso % (Auto) 0.8 (0.2-2.0) % Neut # (Auto) 6.1 (1.4-6.5) 10^3/uL Lymph # (Auto) 2.1 (1.2-3.8) 10^3/uL [place] # (Auto) 0.6 (0.3-0.8) 10^3/uL Eos # (Auto) 0.7 (0.0-0.7) 10^3/uL Baso # (Auto) 0.1 (0.0-0.1) 10^3/uL Abs Immat Gran (auto) 0.02 (0.00-0.03) 10^3/uL Imm/Tot Granulo (auto) 0.2 (0.0-0.5) % PT 10.9 (9.0-11.6) sec INR 1.03 D-Dimer 0.49 (<=0.59) mg/L FEU Sodium 139 (136-145) mmol/L Potassium 3.5 (3.5-5.1) mmol/L Chloride 106 (98-107) mmol/L Carbon Dioxide 25.4 (21.0-32.0) mmol/L Anion Gap 11.1 BUN 17.0 (7.0-18.0) mg/dL Creatinine 0.80 (0.55-1.02) mg/dL Est GFR ( Amer) >60 (>=60) Est GFR (Non-Af Amer) >60 (>=60) BUN/Creatinine Ratio 21.2 Glucose 179 H (74-106) mg/dL Lactate 1.3 (0.4-2.0) mmol/L Calcium 8.6 (8.5-10.1) mg/dL Magnesium 2.1 (1.8-2.4) mg/dL Total Bilirubin 0.4 (0.2-1.0) mg/dL AST 11 L (15-37) U/L ALT 20 (14-59) U/L Alkaline Phosphatase 76 (46-116) U/L Troponin I High Sens 6.0 (4.0-51.3) pg/mL NT-Pro-B Natriuret Pep 60.0 (<=900.0) pg/mL Total Protein 6.7 (6.4-8.2) g/dL Albumin 3.6 (3.4-5.0) g/dL Globulin 3.1 g/dL Albumin/Globulin Ratio 1.2 TSH 1.073 (0.358-3.740) uIU/mL Imaging Data Chest x-ray: Attestation: I have reviewed the pertinent imaging results. ECG Data Attestation: I personally reviewed and interpreted this ECG as follows: (Normal sinus rhythm at a rate of [address] elevation or ectopy. EKG reviewed by attending physician) Discharge Plan Discharge Stand Alone Forms: Portal Instructions Chief Complaint: Arrhythmia/Palpitations Clinical Impression: Palpitations Patient Disposition: Home, Self-Care Time of Disposition Decision: 19:10 Condition: Good Print Language: [place] Instructions: Heart Palpitations (ED) Referrals: Erwin Lambert MD [Primary Care Provider] - 1 week VAMSI YOO [Physician] - 1 week
--- OUTSIDE RECORDS SUMMARY | 2023-09-06 17:06 | XMS_ITS | CCD ---
Author Organization [facility] Care Team Providers Care Fleece Tier Name Role Phone VAMSI SERRANO Unavailable Unavailable MAST, JANNA Unavailable Unavailable Mast, Janna E Unavailable Unavailable Unavailable Sera Lambert Primary Care Unavailable Jose Dangelo Attending Unavailable Jose Dangelo Admitting Unavailable Sera Lambert Primary Care Physician [phone] NILL ., DR LEMONS Admitting Unavailable NILL [...] ble Catherine, Dr. Janna Marti Primary Care UnavailSera Youssef MD Primary Care Provider [phone] SERA LAMBERT Primary Care Unavailable DEIRDRE MONTALVO Attending Unavailable Sera Lambert MD Primary Care Provider [phone] VAMSI SERRANO Attending Unavailable SERA LAMBERT Primary Care Unavailable Sera Lambert MD Primary Care Provider PETE ROD Admitting Unavailable PETE ROD Attending Unavailable SERA LAMBERT Primary Care Unavailable SERA LAMBERT Primary Care Unavailable AKHIL CAN Attending Unavailable PETE ROD Referring Unavailable SERA LAMBERT Primary Care Unavailable PETE ROD Admitting Unavailable PETE ROD Attending Unavailable SERA LAMBERT Primary Care Unavailable Allergies Allergy Classification Reported Allergen(s) Allergy Type Date of Onset Reaction(s) Facility (12 sources) Amoxicillin; Translations: [amoxicillin] Drug Allergy 09-24-19 12 [facility] (disorder), Unknown, Other, Hives General Surgery [facility] (5 sources) atorvastatin; Translations: [atorvastatin] Drug Allergy 06-04-19 Other [facility] y 250 DO Work Phone: (3 sources) ezetimibe; Translations: [Zetia] Drug Allergy 06-04-19 Other [facility] y 250 DO Work Phone: (4 sources) Hmg-Coa Reductase Inhibitors (Statins); Translations: [Statins] Allergy to drug (finding) [facility] Repository (5 sources) oxyCODONE; Translations: [oxycodone] Drug Allergy 06-04-19 24 Other [facility] 250 DO Work Phone: (4 sources) Pravastatin; Translations: [Pravastatin Sodium TABS] Drug Allergy 06-04-19 24 Other [facility] y 250 DO Work Phone: (1 source) Amoxicillin Drug Allergy 02-22-20 17 [facility] Repository (1 source) Aspirin Drug Allergy 02-22-20 [facility] Repository (3 sources) Codeine; Translations: [codeine] Drug Allergy 09-24-19 12 [facility] Repository (1 source) oxyCODONE Drug Allergy 02-22-20 [facility] Repository (3 sources) Acetaminophen / oxyCODONE; Translations: [acetaminophen-oxy codone] Drug Allergy Projectile vomiting (disorder) General Surgery [facility] (6 sources) Aspirin / oxyCODONE; Translations: [aspirin-oxycodone ] Drug Allergy 09-24-19 12 Projectile vomiting (disorder), Unknown, Nausea And Vomiting General Surgery [facility] (5 sources) Codeine; Translations: [codeine] Drug Allergy 09-24-19 12 Edema (finding), Unknown, Hives General Surgery [facility] (2 sources) HMG-CoA reductase inhibitor; Translations: [statins] Drug allergy Unknown (qualifier value) General Surgery [facility] (5 sources) Latex; Translations: [latex] Allergy to substance 12-23-19 15 Itching, Rash [facility] (4 sources) NITROFURANTOIN, MACROCRYSTALS / Nitrofurantoin, Monohydrate; Translations: [nitrofurantoin] Drug Allergy 08-21-19 24 Joint pain (finding), Cutaneous eruption (morphologic abnormality), Other, Rash [facility] (1 source) Acetaminophen / oxyCODONE Drug Allergy 05-13-19 23 [facility] Repository (1 source) Adhesive agent Drug allergy (disorder) 12-23-19 15 [facility] Repository (1 source) Amoxicillin Drug Allergy 07-28-19 13 [facility] Repository (2 sources) black walnut pollen extract; Translations: [LNLCYJW-VKY-HNU REDUCTASE INHIBITORS] Drug Allergy 05-13-19 23 [facility] Repository (1 source) Codeine Drug Allergy 07-28-19 13 [facility] Repository (1 source) Nitrofurantoin Drug Allergy 12-23-19 15 [facility] Repository (1 source) bandaids; Translations: [bandaids] Propensity to adverse reactions (disorder) [facility] Repository (5 sources) Ciprofloxacin; Translations: [CIPROFLOXACIN] Drug Allergy 05-08-19 24 Myalgia, Rash [facility] (1 source) OXYCODONE-ASPIRIN; Translations: [OXYCODONE-ASPIRIN ] Propensity to adverse reactions to drug (disorder) 09-24-19 12 [facility] Repository (2 sources) HMG-CoA reductase inhibitor Drug Allergy 10-16-19 23 Other, Myalgia [facility] Work Phone: (1 source) ezetimibe; Translations: [EZETIMIBE] Drug Allergy 06-04-19 24 [facility] 3 Repository (1 source) Pravastatin; Translations: [PRAVASTATIN] Drug Allergy 06-04-19 24 [facility] 3 Repository (1 source) NITROFURANTOIN MONOHYD/M-CRYST; Translations: [NITROFURANTOIN MONOHYD/M-CRYST] Propensity to adverse reactions to drug (disorder) 08-21-19 24 [facility] 3 Repository (1 source) Acetaminophen / oxyCODONE Drug Allergy 10-16-19 23 Nausea And Vomiting [facility] (1 source) Nitrofurantoin Drug Allergy 08-25-19 24 Other (See Comments) [facility] Medications Current Medications Medication Drug Class(es) Dates Sig (Normalized) Sig (Original) acetaminophen 325 mg / oxyCODONE hydrochloride 5 mg oral tablet (1 source) Opioid Agonist Start: 09-01-2023 End: 09-05-2023 oxyCODONE-acetamin ophen (PERCOCET) 5-325 MG per tablet Indications: S/P anterior colporrhaphy Take 1 tablet by mouth every 6 hours as needed for Pain for up to 5 doses. Intended supply: 7 days. Take lowest dose possible to manage pain Max Daily Amount: 4 tablets 5 tablet 0 09/01/2023 09/05/2023 Active aspirin 81 mg delayed release oral tablet (7 sources) Platelet Aggregation Inhibitor, Nonsteroidal Anti-inflammatory Drug Start: 05-03-2022 take 1 tablet by mouth once daily aspirin 81 mg Oral EC Tab 81 mg = 1 tab(s), Oral, Daily, Refills(s) 0 Start Date: 05/03/22 Status: Ordered calcium chloride 0.0014 meq/ml / potassium chloride 0.004 meq/ml / sodium chloride 0.103 meq/ml / sodium lactate 0.028 meq/ml injectable solution (1 source) Start: 09-01-2023 lactated ringers IV soln infusion cephalexin 500 mg oral capsule (1 source) Cephalosporin Antibacterial Start: 09-01-2023 End: 09-08-2023 cephALEXin (KEFLEX) 500 MG capsule Take 1 capsule by mouth 3 times daily for 7 days Please take for 5 days if discharged home without mcmillan catheter, take all 7 days if discharged home with mcmillan catheter. 21 capsule 0 09/01/2023 09/08/2023 Active docusate sodium 50 mg / sennosides, correction 8.6 mg oral tablet (2 sources) Start: 09-01-2023 End: 10-01-2023 take 8.6-50 mg by mouth once at bedtime senna-docusate (SENOKOT S) 8.6-50 MG per tablet Take 1 tablet by mouth at bedtime 30 tablet 0 09/01/2023 10/01/2023 Active Start: 10-21-2022 take 1 tablet by david th at bedtime sennosides-docusate sodium (SENOKOT-S) 8.6-50 MG tablet Take 1 tablet by mouth in the morning and at bedtime 60 tablet 1 10/21/2022 Suspended ibuprofen 600 mg oral tablet (1 source) Nonsteroidal Anti-inflammatory Drug Start: 09-01-2023 End: 09-11-2023 take 1 tablet by mouth at bedtime ibuprofen (ADVIL;MOTRIN) 600 MG tablet Take 1 tablet by mouth in the morning, at noon, and at bedtime for 30 doses 30 tablet 0 09/01/2023 09/11/2023 Active labetalol (NORMODYNE;TRANDATE) injection 10 mg (1 source) Start: 09-01-2023 labetalol (NORMODYNE;TRANDAT E) injection 10 mg lansoprazole 30 mg delayed release oral capsule (4 sources) Proton Pump Inhibitor Start: 05-23-2023 lansoprazole (Prevacid) [address] capsule 1 capsule (30 mg) once daily. 05/23/2023 Active 10 ml lidocaine hydrochloride 10 mg/ml injection (1 source) Antiarrhythmic, Amide Local Anesthetic Start: 09-01-2023 End: 09-02-2023 lidocaine PF 1 % injection 1 mL 12 hr loratadine 5 mg / pseudoephedrine sulfate 120 mg extended release oral tablet (4 sources) alpha-Adrenergic Agonist Start: 08-13-2023 take 1 tablet by mouth every twelve hours loratadine-pseudoe phedrine (Claritin-D 12 Hour) 5-120 mg 12 hr tablet Take 1 tablet by mouth every 12 hours if needed. 08/13/2023 Active Start: 08-13-2023 take 1 tablet by david th every twelve hours as needed loratadine-pseudoephedrine ER (CLARITIN- D 12 HOUR) 5-120 mg per tablet Take 1 tablet by mouth two times a day as needed. for allergy symptoms. 0 08/13/2023 Active End: 08-25-2023 Loratadine-Pseudoephedrine ( CLARITIN-D 12 HOUR PO) Take by mouth 0 08/25/2023 Discontinued (LIST CLEANUP) naloxone 0.4 mg in 10 mL sodium chloride syringe (1 source) Start: 09-01-2023 naloxone 0.4 m g in 10 mL sodium chloride syringe ondansetron 4 mg oral tablet (2 sources) Serotonin-3 Receptor Antagonist Start: 09-01-2023 take 1 tablet by mouth three times daily as needed for nausea ondansetron (ZOFRAN) 4 MG tablet Take 1 tablet by mouth 3 times daily as needed for Nausea or Vomiting 30 tablet 0 09/01/2023 Active Start: 10-21-2022 take 1 tablet by david th every six hours as needed for nausea ondansetron (ZOFRAN) 4 MG tablet Take 1 tablet by mouth every 6 hours as needed for Nausea or Vomiting 20 tablet 1 10/21/2022 Suspended pantoprazole 40 mg delayed release oral tablet (2 sources) Proton Pump Inhibitor Start: 07-18-[address] (PROTONIX) 40 mg tablet Miralax (2 sources) Osmotic Laxative Start: 05-03-2022 take 17 g by mouth once daily MiraLax 17 gm, Oral, Daily, Refill(s) 0 Start Date: 05/03/22 Status: Ordered prochlorperazine 5 mg/ml injectable solution (1 source) Phenothiazine Start: 09-01-2023 End: 09-02-2023 prochlorperazine (COMPAZINE) injection 5 mg 5 ml sodium chloride 9 mg/ml injection (6 sources) Start: 09-01-2023 0.9 % sodium chloride infusion Start: 09-01-2023 sodium chlorid e flush 0.9 % injection 5-40 mL tamsulosin hydrochloride 0.4 mg oral capsule (1 source) alpha-Adrenergic Mathwe Start: 09-01-2023 End: 09-08-2023 take 1 capsule by mouth once daily tamsulosin (FLOMAX) 0.4 MG capsule Take 1 capsule by mouth daily for 7 days 7 capsule 0 09/01/2023 09/08/2023 Active Completed/Discontinued Medications Medication Drug Class(es) Dates Sig (Normalized) Sig (Original) estradiol 0.01 mg vaginal insert (1 source) Estrogen Start: 09-24-2011 End: 08-13-2023 Estradiol (VAGIFEM) 10 mcg vaginal tablet Use 1 tablet vaginally. 0 09/24/2011 08/13/2023 Discontinued estrogens, conjugated (correction) 0.625 mg/ml vaginal cream (1 source) Estrogen Start: 09-10-2019 End: 08-13-2023 conjugated estrogens (PREMARIN) vaginal cream Use 0.5 g vaginally once daily. 42.5 g 3 09/10/2019 08/13/2023 Discontinued ezetimibe 10 mg oral tablet (7 sources) Dietary Cholesterol Absorption Inhibitor Start: 04-29-2022 ezetimibe (ZETIA) 10 MG tablet Take 1 tablet by mouth 0 04/29/2022 Suspended 2 ml famotidine 10 mg/ml injection (1 source) Histamine-2 Receptor Antagonist Start: 09-01-2023 End: 09-01-2023 famotidine (PEPCID) 20 MG/2ML injection fluticasone furoate 0.0275 mg/actuat metered dose nasal spray (1 source) Corticosteroid End: 08-25-2023 take 2 spray(s) nasal route once daily fluticasone (VERAMYST) 27.5 MCG/SPRAY nasal spray 2 sprays by Each Nostril route daily 0 08/25/2023 Discontinued (LIST CLEANUP) 1 ml HYDROmorphone hydrochloride 1 mg/ml cartridge (3 sources) Opioid Agonist Start: 09-01-2023 End: 09-01-2023 HYDROmorphone (DILAUDID) 1 MG/ML injection Start: 09-01-2023 HYDROmorphone (DILAUDID) injection 0.5 mg Start: 09-01-2023 HYDROmorphone (DILAUDID) injection 0.3 mg loratadine 10 mg oral capsule (5 sources) take 1 capsule by [facility] once daily as needed loratadine (CLARITIN) 10 MG capsule Take 1 capsule by mouth daily as needed 0 Suspended End: 08-21-2023 take 1 tablet by mouth once daily loratadine (Claritin) 10 mg tablet Take 1 tablet (10 mg) by mouth once daily. 08/21/2023 Discontinued (Side effects) phenazopyridine hydrochlorid e 100 mg oral tablet (2 sources) Start: 09-01-2023 End: 09-01-2023 phenazopyridine (PYRIDIUM) tablet 100 mg Start: 09-01-2023 End: 09-01-2023 phenazopyridine (PYRIDIUM) 1 00 MG tablet Polyethylene Glycols (1 source) Start: 05-03-2022 Polyethylene G lycol 3350 (MIRALAX PO) Take 17 g by mouth 0 05/03/2022 Suspended simethicone 80 mg chewable tablet (1 source) Start: 10-21-2022 take 1 tablet by mouth four times daily as needed simethicone (MYLICON) 80 MG chewable tablet Take 1 tablet by mouth 4 times daily as needed for Flatulence 60 tablet 1 10/21/2022 Suspended Problems Active Problems Problem Classification Problem Date Documented Da te Episodic/Chronic Abdominal hernia (2 sources) Diaphragmatic hernia without obstruction or gangrene; Translations: [Diaphragmatic hernia] Onset: 3 Episodic Abdominal pain (7 sources) Epigastric pain; Translations: [Epigastric pain] Onset: 3 Episodic Anal and rectal conditions [...] 3 Chronic Genitourinary symptoms and ill-defined conditions (4 sources) Genuine stress incontinence; Translations: [Stress incontinence (female) (male)] Onset: 3 10-20-2022 Chronic Mood disorders (2 sources) Depressive disorder 10-25-2018 Chronic Mood disorders (1 source) Mood disorders; Translations: [DEPRESSION UNSPECIFIED] Onset: 3 Other aftercare (1 source) 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; Translations: [[facility] CURRENT USE OF ASPIRIN] Onset: 3 Episodic Other aftercare (1 source) Other group home (current) drug therapy; Translations: [OTH [facility] CURRENT DRUG THERAPY] Onset: 3 Episodic Other [...] IN BOWEL HABIT] Onset: 3 Episodic Other nutritional; endocrine; and [...] 10-25-2018 Chronic Prolapse of female genital organs (13 sources) Herniated urinary bladder; Translations: [Cystocele, unspecified] Onset: 3 09-01-2023 Chronic Residual codes; unclassified (1 source) Acquired absence of other specified parts of digestive tract; Translations: [ACQ ABSENCE OTH PART DIGESTV TRACT] Onset: 3 Episodic Residual codes; unclassified (3 sources) History of vaginoplasty; Translations: [Other specified postprocedural states] Onset: 4 09-01-2023 Episodic Residual codes; unclassified (1 source) Other specified postprocedural states; Translations: [Other specified postprocedural states] Onset: 4 Episodic Spondylosis; intervertebral disc disorders; other back [...] Other Problems Problem Classification Problem Date Documented Date Episodic/Chronic Allergic reactions (1 source) Unspecified contact dermatitis, unspecified cause; Translations: [Unspecified contact dermatitis, unspecified cause] Onset: 10-25-2022 Episodic Genitourinary symptoms and ill-defined conditions (13 sources) Dysuria; Translations: [H/O: urethral stricture] Onset: 10-14-2022 10-25-2018 Episodic Other nervous system disorders (1 source) Other acute postprocedural pain; Translations: [Other acute postprocedural pain] Onset: 10-21-2022 Episodic Residual codes; unclassified (1 source) Postoperative state; Translations: [Other specified postprocedural states] Onset: 10-20-2022 10-21-2022 Episodic Unclassified (3 sources) Never smoked tobacco; Translations: [Never a smoker] Results Test Name Value Interpretation Reference Range Facility Surgical Pathology Reporton 09-01-2023 Surgical Pathology Report (NOTE) Path Number: [id number] -- Diagnosis -- VAGINAL MUCOSA: -SQUAMOUS MUCOSA WITH NO PATHOLOGIC DIAGNOSIS Quentin Keys D.O. Electronically Signed Out ljf/09/03/2023 Clinical Information Pre-Op Diagnosis: CYSTOCELE, UNSPECIFIED Operative Findings: VAGINAL MUCOSA Operation Performed: CYSTOSCOPY CYSTOCELE REPAIR AXIS DERMIS 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 AND #4 ETHIBOND dw Source of Specimen A: VAGINAL MUCOSA Gross Description CHERYL HECTOR VAGINAL MUCOSA Received in formalin are two fragments meza, rubbery vaginal mucosa, 3.7 cm and 4.5 cm. Sectioning reveals meza, rubbery cut surfaces with no masses or lesions identified. Tank Maker Wood sections 1c. tm Sarah Short/janina1:09/01/2023 Microscopic Description Microscopic examination performed. Processing Lab: [address] [address] Interpretation Performed at [address] [id number] SURGICAL PATHOLOGY CONSULTATION Patient Name: CHERYL HECTOR [facility] Rec: [id number] [employer] ANATOMIC PATHOLOGY [address] [place] [address]. [place], [place] [address] Normal [facility] ECG 12 Leadon 08-21-2023 Normal sinus rhythm [facility] Work Phone: CNOVon 08-13-2023 CNOV Office Visit (ENDOAV ) CHERYL HECTOR ([id number]) 1965 F Date Time Provider Department 08/13/23 [...] (PREVACID) 30 mg capsule Gastric Acid Secretion Car Coupler - Proton Pump Inhibitors (PPIs) loratadine-pseudoephedrine ER (CLARITIN-D 12 HOUR) 5-120 mg per tablet Take 1 tablet by mouth two times a day as needed. for allergy symptoms. 2nd Generation Antihistamine-Decongestant Combinations pantoprazole DR (PROTONIX) 40 mg tablet Gastric Acid Secretion Car Coupler - Proton Pump Inhibitors (PPIs) ALLERGIES Allergen [...] free cortis (more content not included)... Normal [facility] Basic Metabolic Profon 10-25 Anion gap [Moles/Vol] 10 mmol/L Normal 9-17 [facility] Comment on above: Performed By: #### BMP, LIP, LIVP, TROPI , CDP #### [facility] [address] [place], [place] [id number] Brim Molder: Kris Pardo MD Calcium [Mass/Vol] 9.3 mg/dL Normal 8.6-10.4 [facility] Comment on above: Performed By: #### BMP, LIP, LIVP, TROPI , CDP #### [facility] [id number] [place] [address] Brim Molder: Kris Pardo MD Chloride [Moles/Vol] 101 mmol/L Normal 98-107 [facility] Comment on above: Performed By: #### BMP, LIP, LIVP, TROPI , CDP #### [facility] [id number] [place], [place] [id number] Brim Molder: Kris Pardo MD CO2 [Moles/Vol] 28 mmol/L Normal 20-31 [facility] Comment on above: Performed By: #### BMP, LIP, LIVP, TROPI , CDP #### [place] [address] Brim Molder: Kris Pardo MD Creatinine [Mass/Vol] 0.6 mg/dL Normal 0.5-0.9 [facility] Comment on above: Performed By: #### BMP, LIP, LIVP, TROPI , CDP #### [facility] [address] [place] [id number] Brim Molder: Kris Pardo MD GFR/1.73 sq M.predicted among non-blacks MDRD (S/P/Bld) [Vol rate/Area] mL/min/{1.73_m2} Normal >60 [facility] Comment on above: Result Comment: These results [...] tubular secretion. Performed By: #### B MP, LIP, LIVP, TROPI, CDP #### [place] [address] Brim Molder: Kris Pardo MD Glucose [Mass/Vol] 102 mg/dL High 70-99 [facility] Comment on above: Performed By: #### BMP, LIP, LIVP, TROPI , CDP #### [place] [address] Brim Molder: Kris Pardo MD Potassium [Moles/Vol] 4.3 mmol/L Normal 3.7-5.3 [facility] Comment on above: Performed By: #### BMP, LIP, LIVP, TROPI , CDP #### [place] [address] Brim Molder: Kris Pardo MD Sodium [Moles/Vol] 139 mmol/L Normal 135-144 [facility] Comment on above: Performed By: #### BMP, LIP, LIVP, TROPI , CDP #### [place] [id number] Brim Molder: Kris Pardo MD Urea nitrogen [Mass/Vol] 13 mg/dL Normal 6-20 [facility] Comment on above: Performed By: #### BMP, LIP, LIVP, TROPI , CDP #### [address] [place] [address] Brim Molder: Kris Pardo MD CBC with Diffon 10-25-2022 Abs. Basophil 0.10 k/uL Normal 0.0-0.2 [facility] Comment on above: Performed By: #### BMP, LIP, LIVP, TROPI , CDP #### [place] [address] Brim Molder: Kris Pardo MD Abs.Neutrophil (Seg) 7.10 k/uL Normal 1.8-7.7 [facility] Comment on above: Performed By: #### BMP, LIP, LIVP, TROPI , CDP #### [place] [address] Brim Molder: Kris Pardo MD Basophils/100 WBC (Bld) 1 % Normal 0-2 [facility] Comment on above: Performed By: #### BMP, LIP, LIVP, TROPI , CDP #### [place] [address] Brim Molder: Kris Pardo MD Eosinophils (Bld) [#/Vol] 0.50 10*3/uL High 0.0-0.4 [facility] Comment on above: Performed By: #### BMP, LIP, LIVP, TROPI , CDP #### [place] [address] Brim Molder: Kris Pardo MD Eosinophils/100 WBC (Bld) 5 % High 1-4 [facility] Comment on above: Performed By: #### BMP, LIP, LIVP, TROPI , CDP #### [place] [address] Brim Molder: Kris Pardo MD Erythrocyte distribution width (RBC) [Ratio] 12.9 % Normal 12.5-15.4 [facility] Comment on above: Performed By: #### BMP, LIP, LIVP, TROPI , CDP #### [place] [address] Brim Molder: Kris Pardo MD Hematocrit (Bld) [Volume fraction] 36.9 % Normal 36-46 [facility] Comment on above: Performed By: #### BMP, LIP, LIVP, TROPI , CDP #### [place] [address] Brim Molder: Kris Pardo MD Hemoglobin (Bld) [Mass/Vol] 12.5 g/dL Normal 12.0-16.0 [facility] Comment on above: Performed By: #### BMP, LIP, LIVP, TROPI , CDP #### [place] [address] Brim Molder: Kris Pardo MD Lymphocytes (Bld) [#/Vol] 1.20 10*3/uL Normal 1.0-4.8 [facility] Comment on above: Performed By: #### BMP, LIP, LIVP, TROPI , CDP #### [place] [address] Brim Molder: Kris Pardo MD Lymphocytes/100 WBC (Bld) 13 % Low 24-44 [facility] Comment on above: Performed By: #### BMP, LIP, LIVP, TROPI , CDP #### [place] [address] Brim Molder: Kris Pardo MD MCH (RBC) [Entitic mass] 29.9 pg Normal 26-34 [facility] Comment on above: Performed By: #### BMP, LIP, LIVP, TROPI , CDP #### [address] [id number] Brim Molder: Kris Pardo MD MCHC (RBC) [Mass/Vol] 33.9 g/dL Normal 31-37 [facility] Comment on above: Performed By: #### BMP, LIP, LIVP, TROPI , CDP #### [address] [id number] Brim Molder: Kris Pardo MD MCV (RBC) [Entitic vol] 88.0 fL Normal 80-100 [facility] Comment on above: Performed By: #### BMP, LIP, LIVP, TROPI , CDP #### [place] [address] Brim Molder: Kris Pardo MD Monocytes (Bld) [#/Vol] 0.60 10*3/uL Normal 0.1-1.2 [facility] Comment on above: Performed By: #### BMP, LIP, LIVP, TROPI , CDP #### [place] [address] Brim Molder: Kris Pardo MD Monocytes/100 WBC (Bld) 6 % Normal 2-11 [facility] Comment on above: Performed By: #### BMP, LIP, LIVP, TROPI , CDP #### [place] [id number] Brim Molder: Kris Pardo MD Neutrophil (Seg) 75 % High 36-66 [facility] Comment on above: Performed By: #### BMP, LIP, LIVP, TROPI , CDP #### [place] [id number] Brim Molder: Kris Pardo MD Platelet mean volume (Bld) [Entitic vol] 7.6 fL Normal 6.0-12.0 [facility] Comment on above: Performed By: #### BMP, LIP, LIVP, TROPI , CDP #### [place] [id number] Brim Molder: Kris Pardo MD Platelets (Bld) [#/Vol] 287 10*3/uL Normal 140-450 [facility] Comment on above: Performed By: #### BMP, LIP, LIVP, TROPI , CDP #### [place] [address] Brim Molder: Kris Pardo MD RBC (Bld) [#/Vol] 4.20 10*6/uL Normal 4.0-5.2 [facility] Comment on above: Performed By: #### BMP, LIP, LIVP, TROPI , CDP #### [place] [address] Brim Molder: Kris Pardo MD WBC (Bld) [#/Vol] 9.4 10*3/uL Normal 3.5-11.0 [facility] Comment on above: Performed By: #### BMP, LIP, LIVP, TROPI , CDP #### [place] [address] Brim Molder: Kris Pardo MD CT ABDOMEN PELVIS W [...] obstructive uropathy. The urinary bladder contains a Mcmillan catheter. GI/Bowel: The stomach is unremarkable. Loops [...] Saeed Ortega MD 10/25/22 Final result Normal [facility] Lipaseon 10-25-2022 Lipase [Catalytic activity/Vol] 26 U/L Normal 13-60 [facility] Comment on above: Performed By: #### BMP, LIP, LIVP, TROPI , CDP #### [facility] [address] [place] [address] Brim Molder: Kris Pardo MD Liver Profileon 10-25-2022 Albumin [Mass/Vol] 4.2 g/dL Normal 3.5-5.2 [facility] Comment on above: Performed By: #### BMP, LIP, LIVP, TROPI , CDP #### [facility] [address] [place] [address] Brim Molder: Kris Pardo MD Albumin/Glob Ratio 1.7 Normal 1.0-2.5 [facility] Comment on above: Performed By: #### BMP, LIP, LIVP, TROPI , CDP #### [place] [address] Brim Molder: Kris Pardo MD Alkaline Phos 67 U/L Normal 35-104 [facility] Comment on above: Performed By: #### BMP, LIP, LIVP, TROPI , CDP #### [place] [address] Brim Molder: Kris Pardo MD ALT [Catalytic activity/Vol] 23 U/L Normal 5-33 [facility] Comment on above: Performed By: #### BMP, LIP, LIVP, TROPI , CDP #### [place] [address] Brim Molder: Kris Pardo MD AST [Catalytic activity/Vol] 21 U/L Normal <32 [facility] Comment on above: Performed By: #### BMP, LIP, LIVP, TROPI , CDP #### [place] [address] Brim Molder: Kris Pardo MD Bilirubin [Mass/Vol] 0.3 mg/dL Normal 0.3-1.2 [facility] Comment on above: Performed By: #### BMP, LIP, LIVP, TROPI , CDP #### [place] [address] Brim Molder: Kris Pardo MD Bilirubin, Indirect 0.2 mg/dL Normal 0.0-1.0 [facility] Comment on above: Performed By: #### BMP, LIP, LIVP, TROPI , CDP #### [facility] [id number] [place] [address] [id number] Brim Molder: Kris Pardo MD Bilirubin.indire ct [Mass/Vol] 0.1 mg/dL Normal <0.3 [facility] Comment on above: Performed By: #### BMP, LIP, LIVP, TROPI , CDP #### [address] [address] Brim Molder: Kris Pardo MD Protein [Mass/Vol] 6.7 g/dL Normal 6.4-8.3 [facility] Comment on above: Performed By: #### BMP, LIP, LIVP, TROPI , CDP #### [place] [address] Brim Molder: Kris Pardo MD Troponinon 10-25-2022 Troponin, High Sens 7 ng/L Normal 0-14 [facility] Comment on above: Result Comment: High Sensitivity Troponi n values cannot be compared with other Troponin methodologies. Performed By: #### B MP, LIP, LIVP, TROPI, CDP #### [address] [id number] Brim Molder: Kris Pardo MD UA w/Reflex Cultureon 2022 Bilirubin, SemiQt,Ur Negative Normal NEG [facility] Comment on above: Performed By: #### UMICAO, UAX #### [address] [id number] Brim Molder: Kris Pardo MD Blood, Urine MODERATE Abnormal NEG [facility] Comment on above: Performed By: #### UMICAO, UAX #### [address] [id number] Brim Molder: Kris Pardo MD Clarity (U) Clear Normal CLEAR [facility] Comment on above: Performed By: #### CHANDAN UAX #### [place] [address] Brim Molder: Kris Pardo MD Color (U) Yellow Normal YEL [facility] Comment on above: Performed By: #### CHANDAN UAX #### [place] [address] Brim Molder: Kris Pardo MD Glucose Ql (U) Negative Normal NEG [facility] Comment on above: Performed By: #### CHANDAN UAX #### [place] [address] Brim Molder: Kris Pardo MD Ketones Ql (U) Negative Normal NEG [facility] Comment on above: Performed By: #### CHANDAN UAX #### [place] [address] Brim Molder: Kris Pardo MD Leukocyte esterase Test strip Ql (U) Negative Normal NEG [facility] Comment on above: Performed By: #### CHANDAN UAX #### [place] [address] Brim Molder: Kris Pardo MD Nitrite,Ur Negative Normal NEG [facility] Comment on above: Performed By: #### CHANDAN UAX #### [place] [address] Brim Molder: Kris Pardo MD PH,Ur 7.0 Normal 5.0-8.0 [facility] Comment on above: Performed By: #### CHANDAN UAX #### [place] [address] Brim Molder: Kris Pardo MD Protein Ql (U) Negative Normal NEG [facility] Comment on above: Performed By: #### LYSSAO, UAX #### [place] [address] Brim Molder: Kris Pardo MD Spec. Joes,Ur 1.006 Normal 1.005-1.030 [facility] Comment on above: Performed By: #### CHANDAN UAX #### [place] [address] Brim Molder: Kris Pardo MD Urobilinogen,Ur Normal Normal 0.0-1.0 [facility] Comment on above: Performed By: #### CHANDAN UAX #### [place] [address] Brim Molder: Kris Pardo MD Urinalysis,Microon 3 Bacteria FEW Abnormal NONE [facility] Comment on above: Performed By: #### CHANDAN UAX #### [place] [address] Brim Molder: Kris Pardo MD Epithelial cells LM Ql (Urine sed) 0 TO 2 Normal 0-5 [facility] Comment on above: Performed By: #### CHANDAN UAX #### [place] [address] Brim Molder: Kris Pardo MD Other Observations Utilizing a urinalysis as the only screening method to exclude a potential Abnormal NREQ [facility] Comment on above: Result Comment: uropathogen can be unrel iable in many patient populations. Rapid screening tests are less sensitive than culture and if UTI is a clinical possibility, culture should be considered despite a negative urinalysis. Performed By: #### U FLAVIO UAX #### [place] [address] Brim Molder: Kris Pardo MD Urine RBC's 20 TO 50 Normal 0-2 [facility] Comment on above: Performed By: #### CHANDAN UAX #### [place] [address] Brim Molder: Kris Pardo MD Urine WBC's 0 TO 2 Normal 0-5 [facility] Comment on above: Performed By: #### CHANDAN UAX #### [place] [address] Brim Molder: Kris Pardo MD Hgb/Hcton 10-21-2022 Hematocrit (Bld) [Volume fraction] 38.0 % Normal 36-46 [facility] Comment on above: Performed By: #### HH #### [place] [address] Brim Molder: Kris Pardo MD Hemoglobin (Bld) [Mass/Vol] 12.6 g/dL Normal 12.0-16.0 [facility] Comment on above: Performed By: #### HH #### [place] [address] Brim Molder: Kris Pardo MD OPERATIVE REPORTon OPERATIVE REPORT [address] [address] OPERATIVE REPORT PATIENT NAME: CHERYL HECTOR : 1965 MED REC NO: [id number] ROOM: ACCOUNT NO: [id number] ADMIT DATE: 10/21/2022 PROVIDER: Pete Rod DO [...] COMPLICATIONS: None. BLOOD LOSS: 30 mL. DRAINS: Mcmillan catheter. IMPLANTS: 2 mL of Bulkamid. COURSE: [...] anesthesia. The urinary bladder was drained with Mcmillan catheter. A VCare uterine manipulator was placed [...] the right upper quadrant as an accessory biology research assistant port. The robot was docked with [...] The vaginal cuff was then closed with rqhedw-xn-apnea mucosal-mucosal Vicryl sutures incorporating the cuff angles into the cardinal ligaments for support. A 0 PDS suture was then used to complete an internal Rae culdoplasty with high-multi suture suspension and uterosacral suspension. This helped to obliterate the enterocele sac when cinching the sutures together. The bladder was extremely thin at the dome. One could almost appreciate translucency of the Mcmillan through it. We were very careful with [...] fascial closure (more content not included)... Normal [facility] Surgical Pathologyon 023 Surgical Pathology (NOTE) Path Number: [id number] -- Diagnosis -- A. UTERUS, CERVIX, AND [...] lumen lined by a meza-pink, soft mucosa. Tank Maker Wood sections are submitted in [facility] as follows: 1 anterior cervix 2 posterior cervix 3 endomyometrial polyps 4 anterior endomyometrium 5 posterior endomyometrium 6-7 intramural and subserosal nodules, b2b outside sales representative 8-9 one entire fallopian tube 10-12 one entire fallopian tube. B. CHERYL HECTOR VAGINAL MUCOSA Received in formalin are three fragments of meza-calvillo, wrinkled and ragged vaginal mucosa ranging from 1.6 to 7.5 cm. Sectioning reveals meza-pink, rubbery cut surfaces with no obvious masses or lesions identified. Tank Maker Wood sections 1c. tm Microscopic Description A, B. Microscopic examination performed. Processing Lab: [address] [id number] Interpretation Performed at [address] [id number] SURGICAL PATHOLOGY CONSULTATION Patient Name: CHERYL HECTOR [facility] Rec: [id number] [facility] ANATOMIC PATHOLOGY [address] [place] [address]. [address] Normal [facility] Type + Screenon 10-21-2022 Type + Screen Sample Expiration 10/24/2022,2359 Arm Band Number [id number] ABO/Rh(D) O POSITIVE Antibody Screen NEGATIVE Normal [facility] Comment on above: Performed By: #### TYS #### [address] [address] Brim Molder: Kris Pardo MD Type + Screenon 10-14-2022 Type + Screen Sample Expiration 10/24/2022,2359 Arm Band Number BE [id number] ABO/Rh(D) O POSITIVE Antibody Screen NEGATIVE Normal [facility] Comment on above: Performed By: #### TYS #### [facility] [address] [place] [address] Brim Molder: Kris Pardo MD Office Visit (Cardiology)on 09-12-2022 [...] try to retrieve her recent labs from [facility]. The patient was advised to lose [...] Signs Recorded: 12Sep2022 12:04PM Heart Rate70, Apical Uruotrwp264, LUE, Sitting Weevcrkxv75, LUE, Sitting Height5 ft 4 in Gayfie033 lb BMI Wgecrpyjch26.67 kg/m2 BSA Calculated1.81 Tobacco Useb) No PHQ-2 #1. Over the last 2 weeks have you felt down, depressed or hopeless? (If yes, answer PHQ-9 below)No PHQ-2 #2. Over the last 2 weeks have you felt little interest or pleasure in doin (more content not included)... Normal [facility] Tobacco Screening.on 023 Adult depression screening assessment No [facility] M-Files DO Work Phone: Fall risk assessment a) No falls within the last year [facility] DO Work Phone: Tobacco use status [facility] b) No [facility] DO Work Phone: Ambulatory Visit Summaryon 0 [...] Hypotension Kidney stone Plantar fasciitis Normal [facility] General Surgery Office/Clini c Noteon [...] SARS-CoV-2 (COVID-19) mRNA-1273 vaccine 04/21/2020 Recorded Normal [facility] Comment on above: Result Comment: Electronically Signed By : BRENDA SOTO, Cristo Dueñas\Date and Time Signed: 06/05/22 16:56 EDT Pathology Noteon 06-03-2022 Pathology Note [id number]#1.00CD:127 [facility] Outside Colonoscopyon 2022 Outside Colonoscopy [id number]#1.00CD:127 [facility] Reminderson 05-30-2022 Reminders - From: Nedra Juares LPN To: GSN - Clinical; Sent: 05/30/2022 09:37:12 EST Show up: 05/01/2032 07:00:00 EST Subject: colonoscopy recall Due Date/Time: 05/29/2032 07:00:00 EST Reminder/Recall Patient is due for screening colonoscopy 05/29/2032. [facility] Facesheeton 05-07-2022 Facesheet [id number]#1.00CD:127 [facility] Consent for Procedure/Surger yon 05-06-2022 Consent for Procedure/Surger y [id number]#1.00CD:127 [facility] Ambulatory Visit Summaryon 0 05-03-2022 Ambulatory [...] for. Cholecystectomy Hypotension Kidney stone Plantar fasciitis [facility] Physician Referralon 023 Physician Referral [id number]#[id number]:127 Normal [facility] MM screening mammo BI w/CADo n 01-24-2022 MM screening mammo BI w/CAD [facility] [place] [address] [place] [address] Mammography Report Signed Patient: Cheryl Hector MR#: [id number] : 1965 Acct:[id number] Age/Sex: 56 / F ADM Date: 01/24/22 Loc: [place] Room: Type: [facility] Attending Dr: Jose Dangelo MD Copies to: [...] Kunal Osorio M.D.01/24/2022 4:44 PM Dictation Location: [facility] Transcribed By: [facility] 01/24/22 1644 Dictated By: Kunal Osorio II, MD 01/24/22 1640 Signed By: 01/24/22 1643 [facility] Tobacco Screening.on 022 Adult depression screening assessment No -[facility] [facility] DO Work Phone: Tobacco use status [facility] b) No -[facility] DO Work Phone: Vital Signs Date Time Vital Sign Value Performing Clinician Facility 09-01-2023 10:45-0400 Diastolic blood pressure 66 mm[Hg] Pete Rod DO Work Phone: [facility] 09-01-2023 10:45-0400 Heart rate 66 /min Pete Rod DO Work Phone: [facility] 09-01-2023 10:45-0400 Respiratory rate 12 /min Pete Rod DO Work Phone: [facility] 09-01-2023 10:45-0400 SaO2% (BldA) [Mass fraction] 92 % Pete Rod DO Work Phone: [facility] 09-01-2023 10:45-0400 Systolic blood pressure 119 mm[Hg] Pete Rod DO Work Phone: [facility] 09-01-2023 10:00-0400 Body temperature 97.3 [degF] Pete Rod DO Work Phone: [facility] 09-01-2023 06:13-0400 Body height 162.6 cm Pete Rod DO Work Phone: [facility] 09-01-2023 06:13-0400 Body mass index (BMI) [Ratio] 29.52 kg/m2 Pete Rod DO Work Phone: [facility] 09-01-2023 06:13-0400 Body weight 78.02 kg Pete Rod DO Work Phone: [facility] 08-21-2023 09:30-0400 Body height 162.6 cm Vamsi Serrano MD Work Phone: [facility] 08-21-2023 09:30-0400 Body mass index (BMI) [Ratio] 29.87 kg/m2 Vamsi Serrano MD Work Phone: [facility] 08-21-2023 09:30-0400 Body weight 78.93 kg Vamsi Serrano MD Work Phone: [facility] 08-21-2023 09:30-0400 Diastolic blood pressure 88 mm[Hg] Vamsi Serrano MD Work Phone: [facility] 08-21-2023 09:30-0400 Heart rate 74 /min Vamsi Serrano MD Work Phone: [facility] 08-21-2023 09:30-0400 Systolic blood pressure 126 mm[Hg] Vamsi Serrano MD Work Phone: [facility] 08-13-2023 12:58-0400 Body height 162.6 cm Deirdre Montalvo MD Work Phone: [facility] 08-13-2023 12:58-0400 Body mass index (BMI) [Ratio] 29.78 kg/m2 Deirdre Montalvo MD Work Phone: [facility] 08-13-2023 12:58-0400 Body weight 78.7 kg Deirdre Montalvo MD Work Phone: [facility] 08-13-2023 12:58-0400 Diastolic blood pressure 96 mm[Hg] Deirdre Montalvo MD Work Phone: [facility] Comment on above: ALICIA BP Average 08-13-2023 12:58-0400 Heart rate 68 /min Deirdre Montalvo MD Work Phone: [facility] 08-13-2023 12:58-0400 SaO2% (BldA) [Mass fraction] 100 % Deirdre Montalvo MD Work Phone: [facility] 08-13-2023 12:58-0400 Systolic blood pressure 150 mm[Hg] Deirdre Montalvo MD Work Phone: [facility] Comment on above: ALICIA BP Average 09-12-2022 12:04-0400 Body height 162.56 cm Janna E Mast Work Phone: [facility] 600 DO Work Phone: 09-12-2022 12:04-0400 Body mass index (BMI) [Ratio] 28.67 kg/m2 Janna E Mast Work Phone: [facility] 600 DO Work Phone: 09-12-2022 12:04-0400 Body surface area Derived from formula 1.81 m2 Janna E Mast Work Phone: [facility] 600 DO Work Phone: 09-12-2022 12:04-0400 Body weight 75.75 kg Janna E Mast Work Phone: [facility] 600 DO Work Phone: 09-12-2022 12:04-0400 Diastolic blood pressure 70 mm[Hg] Janna E Mast Work Phone: [facility] 600 DO Work Phone: 09-12-2022 12:04-0400 Heart rate 70 /min Janna E Mast Work Phone: [facility] DO Work Phone: 09-12-2022 12:04-0400 Systolic blood pressure 104 mm[Hg] Janna E Mast Work Phone: [facility] 600 DO Work Phone: 05-03-2022 15:33-0500 Blood Pressure Location [facility] General [facility] 02-10-2023 15:33-0500 Diastolic blood pressure 96 mm[Hg] Cristo ELLISONL General Surgery [facility] 05-03-2022 15:33-0500 Heart rate 70 /min Cristo ELLISONL [facility] [place] 05-03-2022 15:33-0500 Respiratory rate 16 /min Cristo CROCKER General Surgery [facility] 05-03-2022 15:33-0500 Systolic blood pressure 134 mm[Hg] Cristo NILL General Surgery [facility] 05-22-2021 16:14-0500 Diastolic blood pressure 85 mm[Hg] Janna E Mast Work Phone: [facility] DO Work Phone: 05-22-2021 16:14-0500 Systolic blood pressure 122 mm[Hg] Janna E Mast Work Phone: [facility] 250 DO Work Phone: 05-22-2021 15:57-0500 Body height 162.56 cm Janna E Mast Work Phone: [facility] DO Work Phone: 05-22-2021 15:57-0500 Body mass index (BMI) [Ratio] 28.32 kg/m2 Janna E Mast Work Phone: [facility] 250 DO Work Phone: 05-22-2021 15:57-0500 Body surface area Derived from formula 1.8 m2 Janna E Mast Work Phone: [facility] 250 DO Work Phone: 05-22-2021 15:57-0500 Body weight 74.84 kg Janna E Mast Work Phone: [facility] 250 DO Work Phone: 05-22-2021 15:57-0500 Diastolic blood pressure 100 mm[Hg] Janna E Mast Work Phone: [facility] DO Work Phone: 05-22-2021 15:57-0500 Heart rate 80 /min Janna E Mast Work Phone: [facility] 250 DO Work Phone: 05-22-2021 15:57-0500 Systolic blood pressure 140 mm[Hg] Janna E Mast Work Phone: [facility] [facility] DO Work Phone: 05-16-2021 10:56-0500 102.2 1 Janna E Mast Work Phone: [facility] [facility] DO Work Phone: Comment on above: FSLDL Encounters Encounter Date Encounter Type Care Provider Facility Start: 09-01-2023 End: 09-01-2023 ambulatory PETE ROD [facility] Start: 09-01-2023 End: 09-01-2023 Subsequent hospital visit by physician Pete Rod DO Work Phone: [facility] [place] Comment on above: S/P anterior colporr haphy w/ Cypress dermis, Cystoscopy 09/01/23 (Primary Dx); Cystocele, unspecified Start: 08-21-2023 End: 08-21-2023 [facility] Start: 08-21-2023 End: 08-21-2023 Office outpatient visit 25 minutes Vamsi Serrano MD Work Phone: [facility] Comment on above: Takotsubo syndrome ( Primary Dx); Mixed hyperlipidemia; BMI 29.0-29.9,adult; Preop cardiovascular exam Start: 08-21-2023 End: 08-21-2023 Patient encounter status Vamsi Serrano MD Work Phone: [facility] Work Phone: Start: 08-14-2023 ambulatory Deirdre Montalvo MD Work Phone: Endocrinology Start: 08-14-2023 Patient encounter procedure Deirdre Montalvo MD Work Phone: Endocrinology Comment on above: Important Medical dx history info not mentioned Start: 08-13-2023 End: 08-13-2023 ambulatory SERA LAMBERT Facility:[facility] Start: 08-13-2023 End: 08-13-2023 Patient encounter procedure Deirdre Montalvo MD Work Phone: Endocrinology Comment on above: Low serum cortisol l evel (Primary Dx); Prediabetes; Uncontrolled hypertension Start: 10-25-2022 End: 10-25-2022 Emergency department patient visit SERA LAMBERT [facility] Start: 10-21-2022 End: 10-21-2022 ambulatory [facility] Start: 10-14-2022 End: 10-14-2022 ambulatory [facility] Start: 09-12-[address] Vamsi Serrano Facility: Start: 09-12-2022 Patient encounter procedure Janna Alexander Work Phone: [facility] 600 DO Work Phone: Start: 06-05-2022 End: 06-06-2022 ambulatory Cristo CROCKER Facility: [facility] Start: 06-05-2022 End: 06-05-2022 Patient encounter procedure Cristo CROCKER General Surgery Nill/Said [facility] Start: 06-03-2022 Telephone encounter Janna muñoz Work Phone: [facility] 600 DO Work Phone: Start: 05-29-2022 End: 05-30-[address] CRISTO CROCKER . Facility: Start: 05-03-2022 End: 05-04-2022 ambulatory Sera Lambert Facility:[facility] Start: 05-03-2022 End: 05-03-2022 Patient encounter procedure Cristo CROCKER General Surgery Nill/Said [facility] Start: 04-25-2022 ambulatory Cristo CROCKER Facility : [facility] Start: 01-24-2022 End: 01-24-2022 ambulatory Sera Lambert Facility:[facility] Start: 05-22-2021 Office outpatient vi sit 15 minutes Janna E Mast Work Phone: [facility] DO Work Phone: Start: 07-02-2017 Ambulatory VAM[facility] Ceja lity:[id number] Patient encounter status Janna E Mast Work Phone: [facility] 600 DO Work Phone: Procedures Date Procedure [...] Activity Detail Author Start: 05-29-2032 Screening for malignant neoplasm of colon [facility] Start: 10-25-2025 Diabetes Screening Diabetes Screenin g [facility] Start: 09-14-2024 End: 09-14-2024 Patient encounter procedure 09/14/2024 9:20 AM EDT Office Visit [address] [place] [address] Vamsi Serrano MD [address] [facility] [address] [place] [address] [facility] Start: 11-23-2023 Influenza vaccination Influenz a Vaccine (Season Ended) [facility] Start: 10-23-2023 Influenza vaccination Flu vacc ine (Season Ended) [facility] Start: 10-07-2023 End: 10-07-2023 Patient encounter procedure 10/07/2023 3:00 PM EDT Office Visit [facility] [address] [place] [address] Pete Rod DO [address] [place], [place] [id number] PO [facility] Comment on above: 6 WK PO Start: 09-16-2023 FUV, Provider: Vamsi Serrano, Status: Pen, Time: 10:10 AM FUV, Provider: Vamsi Serrano, Status: Pen, Time: 10:10 AM [facility] 600 DO Work Phone: Start: 09-08-2023 End: 09-08-2023 Patient encounter procedure 09/08/2023 9:00 AM EDT Office Visit [facility] [address] [place] [address] [id number] Skey Coles, SWATCH FOLDER - WATER SERVER [address] [place] [address] [id number] [facility] Comment on above: 1 WK PO Start: 09-01-2023 End: 09-01-2023 Anterior colporraphy rpr cystocele w/cysto VAGINAL ANTERIOR REPAIR Cystocele, unspecified 09/01/2023 7:29 AM EDT [facility] Start: 08-21-2023 End: 08-20-2024 Lipid 1996 panel - Serum or Plasma Lipid Panel Lab Routine Mixed hyperlipidemia Expected: 08/21/2023 (Approximate), Expires: 08/20/2024 [facility] Service Area Work Phone: Comment on above: Expected: 08/21/2023 (Approximate), Expires: 08/20/2024 Start: 2023 Respiratory Syncytia l Virus (RSV) or age 60 yrs+ (1 - 1-dose 60+ series) Respiratory Syncytial Virus (RSV) or age 60 yrs+ (1 - 1-dose 60+ series) [facility] Start: 2023 RSV patient s and/or patients aged 60+ years (1 - 1-dose 60+ series) RSV patients and/or patients aged 60+ years (1 - 1-dose 60+ series) [facility] Start: 2023 RSV Vaccine (1 - 1-dose 60+ series) RSV Vaccine (1 - 1-dose 60+ series) [facility] Start: 03-24-2023 Behavioral Health Screening Behavioral Health Screening [facility] Start: 11-22-2022 Covid-19 Vaccine () Covid-19 Vaccine ( season) [facility] Start: 10-08-2022 FUV, Provider: Vamsi Serrano, Status: Pen, Time: 2:00 PM FUV, Provider: Vamsi Serrano, Status: Pen, Time: 2:00 PM [facility] 600 DO Work Phone: Start: 06-04-2022 FUV, Provider: Vamsi Serrano, Status: Pen, Time: 3:50 PM FUV, Provider: Vamsi Serrano, Status: Pen, Time: 3:50 PM -[facility] 250 DO Work Phone: Start: 07-24-2013 Shingles vaccine (1 of 2) Shingles vaccine (1 of 2) [facility] Start: 07-24-2013 Shingrix Vaccine (1 of 2) Shingrix Vaccine (1 of 2) [facility] Start: 07-24-2013 Zoster Vaccines (1 o f 2) Zoster Vaccines (1 of 2) [facility] Start: 07-24-2008 Lipid panel Lipid Screening [facility] Start: 07-24-2008 Screening for malignant neoplasm of colon [facility] Start: 2003 Lipid panel Lipids [facility] Start: 2003 Screening for malignant neoplasm of breast [facility] Start: 02-18-2002 Hepatitis B Vaccines (2 of 3 - 19+ 3-dose series) Hepatitis B Vaccines (2 of 3 - 19+ 3-dose series) [facility] Start: 07-24-1998 Diabetes screen Diabetes screen [facility] Start: 07-24-1993 Screening for malignant neoplasm of cervix HPV Testing [facility] Start: 07-24-1985 DTaP/Tdap/Td Vaccine s (1 - Tdap) DTaP/Tdap/Td Vaccines (1 - Tdap) [facility] Start: 07-24-1984 Screening for malignant neoplasm of cervix [facility] Start: 07-24-1982 DTaP/Tdap/Td vaccine (1 - Tdap) DTaP/Tdap/Td vaccine (1 - Tdap) [facility] Start: 07-24-1982 Urine microalbumin profile DTaP,Tdap,Td Vaccine (1 - Tdap) [facility] Start: 07-24-1981 Diabetes mellitus screening Diabetes Screening [facility] Start: 07-24-1981 Hepatitis C screening [facility] Start: 07-24-1981 HIV screening HIV Screening [facility] Start: 07-24-1978 HIV screening HIV screen [facility] Start: 1975 Depression Screen Depression Screen [facility] Start: 07-24-1964 MMR Vaccines (1 of 1 - Standard series) MMR Vaccines (1 of 1 - Standard series) [facility] Start: 1963 HIV screening [facility] Scre[facility] Start: 1963 Lipid panel Lipid Panel [facility] Start: 1963 Screening for malignant neoplasm of colon [facility] Start: 1963 [facility]ly Adult [facility] End: 09-01-2023 Glucose [Mass/volume] in Serum or Plasma POCT Glucose Point of Care Testing Routine One Time for 1 Occurrences starting 09/01/2023 until 09/01/2023 [facility] on above: One Time for 1 Occur rences starting 09/01/2023 until 09/01/2023 End: 09-01-2023 INITIATE PACU OXYGEN THERAPY PROTOCOL Initiate PACU Oxygen Therapy Protocol Respiratory Care Routine Continuous until discontinued starting 09/01/2023 [facility] [employer] Comment on above: Continuous until dis continued starting 09/01/2023 Oxygen therapy [Minimum Data Set] Initiate Oxygen Therapy Protocol Respiratory Care Routine As Needed until discontinued starting 09/01/2023 [facility] [employer] Work Phone: Comment on above: As Needed until disc ontinued starting 09/01/2023 End: 09-01-2023 , urine POCT , urine POCT Point of Care Testing Routine One Time for 1 Occurrences starting 09/01/2023 until 09/01/2023 [facility] Comment on above: One Time for 1 Occur rences starting 09/01/2023 until 09/01/2023 Surgical Pathology Surgical Path ology Lab Routine Cystocele, unspecified Release Upon Ordering for 1 Occurrences starting 09/01/2023 [facility] Work Phone: Comment on above: Release Upon Orderin g for 1 Occurrences starting 09/01/2023 End: 09-01-2023 SURGICAL PATHOLOGY REPORT SURGICAL PATHOLOGY REPORT Lab Routine Once for 1 Occurrences starting 09/01/2023 until 09/01/2023 [facility] Comment on above: Once for 1 Occurrenc es starting 09/01/2023 until 09/01/2023 Immunizations Immunization Date Immunization Notes Care Provider [facility] 01-23-2022 influenza, seasonal, injectable Janna E Mast Work Phone: [facility] 600 DO Work Phone: 01-23-2022 influenza virus vaccine, unspecified formulation Deirdre Montalvo MD Work Phone: [facility] 01-22-2022 influenza virus vaccine, unspecified formulation Cristo CROCKER [facility] 03-19-2021 Moderna COVID-19 Vaccine 100 MCG/0.5ML Intramuscular Suspension Janna E Mast Work Phone: [facility] 05-19-2020 Moderna COVID-19 Vaccine 100 MCG/0.5ML Intramuscular Suspension Janna E Mast Work Phone: [facility] 04-21-2020 Moderna COVID-19 Vaccine 100 MCG/0.5ML Intramuscular Suspension Janna E Mast Work Phone: [facility] 01-18-2020 influenza virus vaccine, unspecified formulation [facility] E [facility]ast [facility] DO Work Phone: 12-23-2019 influenza virus vaccine, unspecified formulation Janna E Mast Work Phone: [facility] 250 DO Work Phone: 12-23-2019 influenza, seasonal, injectable Vamsi Serrano MD Work Phone: [facility] Work Phone: 01-06-2018 influenza virus vaccine, unspecified formulation Janna E Mast Work Phone: [facility] 250 DO Work Phone: 12-22-2016 influenza virus vaccine, unspecified formulation Janna E Mast Work Phone: [facility] 250 DO Work Phone: 01-21-2002 hepatitis B vaccine, adult dosage Janna E Mast Work Phone: [facility] 250 DO Work Phone: Payers Date Payer Category Payer Self-pay 2014 Unknown 1965 Unknown [id number] 2.16.84 [id number] 1965 Unknown [id number] 2.16.8 [id number] 1965 Unknown [id number] 2.16.8 [id number] 1963 Unknown [id number] 2.16.8 [id number] 1963 Unknown [id number] 2.16.8 [id number] 1963 Unknown [id number] 2.16. [id number] 1963 Unknown [id number] 2.16.8 [id number] 1963 Unknown [id number] 2.16. [id number] 1963 Unknown [id number] 2.16. [id number] 1963 Unknown [id number] 2.16. [id number] 1963 Unknown [id number] 2.16. [id number] 1959 Unknown [id number] Unknown [id number] 2.16.8 [id number] Social History Date Type Detail Facility Start: 08-13-2023 End: 08-25-2023 Social alcohol use Social alcohol use [place] [address] DO Work Phone: Start: 05-03-2022 End: 08-21-2023 Tobacco smoking status Never smoked tobacco (finding) [facility] Tobacco smoking status Never [facility] Start: 08-13-2023 End: 08-25-2023 Sex Assigned At Female [facility] Start: 08-13-2023 End: 08-21-2023 Tobacco use and exposure Smokeless tobacco non-user [facility] Start: 08-13-2023 End: 09-01-2023 Alcohol intake Current drinker of alcohol (finding) [facility] Start: 08-13-2023 Alcohol Comment Once a week or less. [facility] Start: 1965 Sex Assigned At Not on file [facility] Start: 08-11-2023 End: 08-21-2023 Exposure to SARS-CoV-2 (event) Not sure [facility] Start: 08-25-2023 Alcohol Comment social-1x a week [facility] NEGATED: Highlighted rowStart: NINF History of tobacco use Passive smoker [facility] Medical Equipment Procedure Code Equipment Code Equipment Origin al Text Equipment Identifier Dates System Bulking P shania Bulkamid Urethral - [id number] Start: 10-21-2022 Allograft Cypress 6 [facility] X [address] [facility] - [id number] Start: 09-01-2023 Functional Status Date Assessment Result Facility 05-03-2022 Functional Status N/A [facility] Clinical Notes 05-03-2022 to 08-28-2023 Discharge InstructionsBernice Gaona RN - 08/25/2023 11:44 AM EDFelix Serrano MD - 08/21/2023 9:30 AM EDTPatient InstructionsDeirdre Montalvo MD - 08/13/2023 12:53 PM EDT Note Date & Type Note Facility 08-28-2023 Hospital Discharge instructions Aileen Simeon RN - 08/28/2023 3:45 PM EDT Images from the original note were not included. POSTOPERATIVE PATIENT INSTRUCTIONS MAJOR & MINOR SURGICAL PROCEDURES WITH AT HOME VOIDING TRIAL PROTOCOL Congratulations! You have taken the brave step of undergoing surgery in order to try to improve your health. Now it is time to focus on healing outside of the hospital / surgery center setting. To make your dismissal as successful as possible, it is recommended that you thoroughly review these postoperative instructions. These instructions pertain to, but are not limited to the following procedures. Please confirm your procedure below and pay attention to special considerations for your surgery if MAJOR or MINOR. MAJOR Hysterectomy - Vaginal / Laparoscopic / Robotic With or Without tube-ovarian Removal (Salpingo-oophorectomy) Sacrocolpopexy / Sacroperineopexy / Sacrocervicopexy/ Hysteropexy (lifting apex to sacrum) Major Vaginal Prolapse Repairs Cystocele repair (Anterior Colporrhaphy) Rectocele repair (Posterior Colporrhaphy) Enterocele repair Vaginal vault repair Closing or removal of the vagina (Colpocleisis / Colpectomy) Major urinary incontinence surgery (Mccarty Urethropexy, MMK) Major fibroid removal (Myomectomy) Major tubal surgery (re-anastomosis, ectopic , pelvic inflammatory disease) Major surgery for adhesions or endometriosis involving bowel Major vaginal mesh removal Fistula repair of the bladder or colorectum to the vagina Creation of a new vagina (Neovaginoplasty) or repair of a Mullerian Anomaly Other MINOR Hysteroscopy with Dilatation / Curettage, Endometrial Ablation / Hysterosalpingogram (HSG) Laparoscopy With or Without minor tubal or ovarian surgery Minor Vaginal Prolapse repairs Cystocele repair (Anterior Colporrhaphy) Rectocele repair (Posterior Colporrhaphy) Urethrocele repair Minor urinary incontinence surgery (Slings, Transurethral Bulking) Minor vaginal surgery (Mesh removal, Laser ablation, Biopsies, Labial revisions, Injections) Minor surgery of the bladder (DMSO, Hydrodistention, Botox, etc.) Neuromodulation Other 1 2 POST OPERATIVE BASIC INSTRUCTIONS The office will call on the Friday, or within 1 week, after your surgery to make sure you are doing well and to answer questions. Your 1st post-op visit will occur within 1-2 weeks after your surgery. Your final post-op visit will occur @ 4-6 weeks depending on the surgery & your desire to return to work. Your surgery and recovery may require more visits in between the 1st and final visits. DO'S, DONT'S, & WHEN TO CALL As reviewed with you on the morning of your discharge, for the 1st week out of surgery below is a QUICK list of DO's, DONT's, and WHEN TO CALL: 5 THINGS YOU MAY DO 5 THINGS YOU MAY NOT DO FOR 4-8 WEEKS -Shower with Ivory Soap and water -Tub bathe, hot tub, or swim -Gradually increase walking - Heavy lifting > 15lbs (2 gallons worth) -Go up and down stairs slowly - Insert anything into the vagina (sex, douching, tampons) -Light housecleaning (dusting, dishwashing) - Drive a car / motorcycle (*See Special Considerations) -Short local travel (restaurant, jewish) - Long distance travel > 1.5 hours (*See Special Considerations) 5 SYMPTOMS TO CALL FOR: -Sustained fever >100.4 despite Tylenol or a cold shower, especially associated with redness of incision/s -Pain out of the ordinary (>7) despite pain meds / anti-inflammatories -Heavy vaginal bleeding > 1 pad / hour with large red clots -Inability to eliminate urine (especially if catheterized) or flatus / stool (with sustained distention & nausea) -Calf pain or extreme shortness of breath QUESTIONS, CONCERNS, EMERGENCIES Please call the office with any questions or concerns. [phone]. If during office hours, your issue may require an appointment. If after hours, the answering service will connect you with the physician Painter Chassis. If you are concerned that your issue may be emergent, PLEASE CALL FIRST. Many issues may be resolved over the phone and avoid an unnecessary and expensive ER visit. If you truly have an emergency related to the surgery and call first: *You will be directed to the hospital ER in which you had your surgery. [facility] primarily or [facility] rarely. [facility] & [facility] patients may be asked to report to [facility] if Dr. Rod's on-call partner is assuming responsibility. ER visits are ALWAYS covered by insurance (i.e. [facility] can go to a [facility] ER.) Calling 1st expedites your care & avoids an unnecessary and costly ambulance transfer to the Hospital. Dial 911 or go to your closest ER if your emergency is related to a potential heart attack or stroke. 3 DISCHARGE MEDICINES You may be sent home with prescriptions for some or all of the medicines below based on the nature of your procedure. Alternatives may be offered for allergies or sensitivities. Omaha 325/5mg tablets or alternative narcotic. Take 1-2 tablets by mouth every 4-6 hours as needed for pain. Per [facility] Board of Pharmacy laws, only 1 week of narcotics may be prescribed at a time. Do not take extra Tylenol (Acetaminophen) orally as Omaha already contains the medicine. May take 500mg orally every 4-6 hours if off of Omaha. * Ibuprofen 400-800mg is safe to take. Take 1 tablet by mouth every 8 hours for inflammation. Senokot - S. Take two tablets by mouth every night to prevent constipation. Stop if loose stools occur. If an antibiotic is required: Keflex 250-500mg take 1 tablet by mouth 3x / day as prescribed OR Cipro 250-500mg take 1 tablet by mouth 2x / day as prescribed Other medicines may be prescribed based on your post-op course or situation. Zofran 4mg for nausea, Flomax 0.4mg for voiding. *You may resume taking any medications you were taking before your surgery, unless told otherwise. DUE TO BLEEDING RISK, DO NOT RESUME HOME ANTICOAGULANTS UNTIL DIRECTED SPECIAL CONSIDERATIONS After surgery, give yourself a chance to adjust and recover. Some patients feel fine within a month. Many need a little extra time. Do not be concerned if you feel fatigued for the first month, your body is recovering. It may take several weeks for you to get your energy back. Even if energy has returned, please do not be tempted to re-engage in strenuous activity. Although mild weight gain is not uncommon, most of it is IV fluid weight that your body will remove with time. You have the rest of your life to exercise, so some patience and rest is lizarraga in the short term in order to heal successfully in the intermediate project manager. Once you have fully recovered, you may focus on enjoying your life. Keep in mind, you will continue to heal for 6-12 months after surgery, so use common sense to protect your surgery (avoid repetitive heavy lifting, constipation, chronic pelvic strain.) In particular, if you had a hysterectomy, you may have both physical and emotional effects that may be brief or group home. After hysterectomy, periods will stop, and a woman can no longer achieve . Despite popular myth, post-hysterectomy weight gain is not due to the hysterectomy but is usually a result of other factors. A depressive emotional reaction to loss of the uterus is not uncommon or abnormal. Please discuss any concerns with your health care provider if persistent. Sexual response may change after hysterectomy. There are no definitive studies showing decreased orgasmic potential post-hysterectomy. Some women have a heightened response due to correcting painful pathology. Ovarian removal may decrease estrogenization, leading to vaginal dryness and menopausal hot flashes. Hormonal therapy may need to be discussed. SOME SURGERIES HAVE SPECIAL CONSIDERATIONS MAJOR For all major surgeries listed above, you may drive after your 1week post-op visit if cleared, have discontinued narcotic pain meds, and are able to depress the brake quickly without pain. Long distance travel may be resumed in 4 weeks if stable. With major robotic hysterectomy, you should refrain from intercourse for 8 weeks, other hysterectomies 6 weeks. MINOR Minor surgeries may drive the next day any distance if off narcotic pain meds and are able to brake safely. For minor vaginal surgeries for prolapse and / or urinary incontinence procedures, maintain pelvic rest for 4 weeks. Exercise and work may be resumed within 2-4 weeks depending on healing. For minor surgeries of the vagina, uterus, and bladder, hysteroscopy, D&C, and laparoscopy, maintain pelvic rest for 1-2 weeks depending on healing. Exercise and work may be resumed within the week. 4 CONSENT ITEMS REVISITED IN THE POST OPERATIVE PERIOD In regard to all gynecologic surgeries Physical and sexual activity will be restricted to varying degrees for an indeterminate period of time, but most often 2-8 weeks depending on the breadth of surgery. It is impossible to list every undesirable effect. The condition for which surgery is done is not always cured or significantly improved, and in rare cases may even worsen. There is no 100% guarantee that the planned surgery, despite everything being done correctly and to the medico-surgical standard, with resolve a condition 100% including but not limited to pain, prolapse, mesh erosion, urinary infections, bladder function, or defecatory dysfunction. Specifically, up to 20% of patients with abdominopelvic pain, 27% of those with UTI's, 16-26% with urinary incontinence or voiding dysfunction, and 40% with defecatory dysfunction may not see substantial long-lasting improvement from a surgical intervention. Dangerous blood clots in the legs or lungs may occur post-operatively. Patients on chronic blood thinners, particularly those without antidote, may be at significant risk of bleeding, hemorrhage, hematoma formation, need for transfusion, and over the regular population. Life-threatening bleeding complications may even occur up to 4 weeks out of surgery even if anticoagulation is managed appropriately. If the patient has been taken off anticoagulation because of bleeding, this could expose her to life-threatening blood clots in the legs or lungs, [place], or stroke. Elderly patients over the age of 70 may experience up to a 2-4% mortality rate in the postsurgical period related to comorbidities and declining health. A living will and code status is recommended to be reviewed. For major outpatient procedures requiring less than a 24 hour stay, you will be dismissed from the hospital or surgery setting when stable and meets criteria for discharge. Less than 5% of patients may rebound to an emergency setting for some of the risks mentioned above even though they have met criteria for dismissal earlier. Outpatient surgical recovery usually occurs between 2 and 4 weeks. For major inpatient procedures requiring an average 0-2-day hospital stay, the patient may not be fully recovered from major surgery for up to 6-8 weeks. Please understand with Medicare and insurance regulations, only 1 night will be approved for most reconstructive or robotic procedures. SPECIFICALLY, in regard to reconstructive pelvic and incontinence surgery: Approximately 85% of patients experience a reasonable improvement >5 years in pelvic support and urinary/fecal incontinence, as well as urinary infections, after the procedure. There is a long-term risk of recurrent prolapse in up to 30% of women who have undergone reconstructive surgery if healthy lifestyle behaviors are not maintained. This includes but is not limited to good nutrition, smoking cessation, weight loss in the obese, reduction in heavy lifting, exercise, fall prevention, and bowel regularity. Reconstructive pelvic and/or urinary/fecal incontinence surgeries may only improve your condition/s mildly and may not completely resolve problems including but not limited to urinary tract infections and/or defecatory dysfunction. 17% of patients may still get a urinary tract infection and 40-60% of patients may still experience constipation postoperatively. It may be hard to urinate for a few days or weeks. Sometimes, up to 40% of women cannot urinate efficiently after surgery due to swelling, anesthesia, or pain. Prolonged urinary retention may rarely occur after an incontinence or pelvic prolapse surgery and is more likely if retention predates surgery or includes factors that are not limited to neuropathy, diabetes mellitus, or prior pelvic surgery. The patient may need a catheter to drain the bladder for 1-2 weeks on average. Patients in Dr. Rod's practice most often prefer a transurethral Mcmillan. Other choices are a suprapubic catheter or intermittent self-catheterization. The patient has been given instructions on how to manage the type of catheter chosen, which will be reiterated postoperatively. There is a 5% chance of recurrent retention after mcmillan removal requiring catheter replacement in the office or by ER. Despite evidence indicating no need for antibiotics with a catheter, real world experience shows a 20-40% rate of UTI with a Mcmillan catheter which depending on personal risk factors and extent of surgery, may require a prophylactic antibiotic afterwards. Antibiotics have risks of resistance, diarrhea, and C. difficile infection. Suprapubic catheters carry a risk of urinoma, bowel injury, and bleeding and have a UTI risk of 15-20%. Intermittent self-catheterization carries an 11% risk of a UTI. SPECIFICALLY, in regard to labial or perineal reconstructive surgery: You should expect some bruising and mild swelling with related discomfort following these surgeries that lasts 1-2 weeks. Ice packs and sitz baths may be utilized after surgery to help minimize swelling and discomfort. Mild analgesics are also used. Final optimal results can usually be appreciated in several months. Most patients may return to work or school within a week after surgery; however, strenuous activity or tight clothing is discouraged, and patients must refrain from sexual intercourse for 4-6 weeks after surgery. You may receive a topical antibiotic, which reduces risk of infection. Mild bleeding is not uncommon and can occur postoperatively if strenuous activity or intercourse is begun too early. Problems with healing, such as incision separation, suture popping, scarring, and/or pain following the surgery are rare but can happen. 5 SPECIAL INSTRUCTIONS IF MRSA POSITIVE * Continue Bactroban to the nares 2x / day for 1 week post-operatively. Since many people are colonized in the community, it is not something we will routinely culture for post-operatively. TO PREVENT BLOOD CLOTS IN THE LEGS OR LUNGS / PNEUMONIA IN THE LUNGS Regular walking or calf stretches and wearing a supportive hose may help prevent clots in the legs or lungs. Take home your incentive spirometer if given one and utilize it as instructed to prevent pneumonia Smoking cessation before and after surgery is strongly encouraged. VAGINAL BLEEDING & DISCHARGE You will likely experience light bleeding with the potential for small dime size clots, lasting 2-3 weeks after your surgery. This should NOT be construed as heavy bleeding. You may notice an increase in vaginal discharge 4-6 weeks after your surgery, which may be watery, yellowish, or pinkish. It may have more of an acidic odor. This is common as the vagina flushes out edematous body fluid and dissolves the absorbable sutures. As the healing process progresses, you may experience mild itching within the vagina, as well as outside the vaginal opening. If this itching becomes severe, and/or is accompanied by a foul smell and swelling, please call the office. DRAINS & WOUND CARE If a drain or specific wound care appliance is present at the time of dismissal, please follow additional instructions that may be provided regarding maintenance of the device/s. Basic daily maintenance of a drain is as follows: You may wash around the drain site with warm, soapy water and pat dry with a towel. If indicated, use a topical antibiotic around the drain site 2x / day. Strip or milk the drain from the drain site to the bulb suction 3x / day. This clears any blockage from the drain. Simply pinch the drain at its insertion site into your body between your thumb and forefinger. Then squeeze and pull the drainage tubing as you move towards the drain bulb, allowing the tube to slide between your fingers with mild resistance, you should see a suction effect within the drain tube that moves fluid toward the bulb. Please call the office immediately if the drain falls out or cannot maintain suction. Please call if redness of the drain site increases and is associated with fever, pain, or purulent discharge. CONSTIPATION * Patients are often constipated after a prolonged period of bed rest, or with the use of oral narcotic pain medications. If you have not had a bowel movement for 3 days after you are dismissed from the hospital, or are uncomfortable and unable to pass stool, please try one or all of the following measures in a stepwise manner 1-5 as needed for results: Eat fruits, vegetables, prunes & whole-grain foods. Drink 8 glasses of fluid daily. Add PlumSmart juice. Metamucil, FiberCon, or other bulking medication - use as directed Milk of magnesia - 30 mL's by mouth every 12 hours Dulcolax suppository - 1 suppository per rectum every 4-6 hours Fleets enema - use as directed unless told nothing per rectum (colorectal fistula repair) BLADDER DRAINAGE There is a >50% chance you will void on your own post-operatively. In particular, reconstructive and incontinence surgeries (whether you had incontinence before surgery or not), sometimes have surgical effects of normal swelling and new positioning of the bladder may be associated with some mild to moderate postoperative urinary leakage. Often this leakage is urge related. As discussed, pre-operatively, up to 26% of patients with prolapse and negative urodynamic testing may develop de kamilah incontinence afterwards. Please do not be frustrated if temporary incontinence occurs for it will most likely improve as you continue to heal. Leakage rarely persists in the long-term, there are many options for treatment, and Dr. Rod and his office staff are there to help you every step of the way. 6 BLADDER DRAINAGE FOR THOSE PATIENTS REQUIRING A CATHETER For some postoperative patients, it may be hard for you to urinate for a few days or weeks. Up to 30-40% of women cannot urinate efficiently after surgery due to swelling or anesthesia. This may last a few hours to a few weeks. You may be required to use a catheter in your bladder to help it drain and retrain it to work properly. The most commonly used type of catheter, called an Intraurethral Mcmillan Catheter (IUC), is placed into the bladder through the urethra. This is usually reserved for large pelvic reconstructive surgeries and timely recovery. Other tubes may help drain fluid from your incision/s. Unless instructed to maintain a catheter to drainage or to rest, you will begin plugging or clamping your catheter in the hospital, and you will leave it plugged/ clamped for set intervals of time. Plugs or clamps will be provided by the nursing staff. You will continue this routine upon dismissal. While your catheter is plugged or clamped, the urine will not drain out of it, and your bladder will fill like it always has naturally. You will be sent home with a smaller day bag that straps to your leg for mobility plus a larger night bag to allow you to rest all night without the need to drain the bag, and cleansing supplies. Depending on the surgery, you will be able to remove your catheter at home within 1-7 days. If you have an Intraurethral Mcmillan Catheter, plugging / clamping of the catheter helps to wake up the bladder and increases capacity. By the time you come in for your 1st postoperative visit, 95% of patients will be ready to pass a voiding trial and have the catheter removed successfully. During daytime, try plugging until you are comfortably full, then drain your bladder through the catheter into the smaller bag. Your goal should be 2-4 hours of plugging between bladder emptying. You may put your catheter to drain at night into the larger bag. 7 Troubleshooting the Catheter It is not uncommon for the transurethral or suprapubic catheter to leak around the urethra or skin incision respectively as the bladder gets too full. If you have problems with this type of leaking, drain your bladder through the catheter. If leakage continues, reconnect your catheter to the Mcmillan bag until the next morning, then restart the plugging routine. Please call the office regarding any continued leakage problems. Removing the Catheter The catheter is held in place inside your bladder by a water-filled balloon. Cutting the collar (next to the end of the part you've been plugging) will cause the water inside the balloon to empty out, and the balloon will deflate. You may then remove the catheter by pulling on it gently. Things to Remember You do not need to measure how much you urinate. You need only to measure how much is left in your bladder (which gets drained from the catheter) at the end of the 4-12 hr. plugging / clamping interval. This is known as Residual Urine. You may find it easier to use the larger Mcmillan bag at night to collect your urine. The larger bag prevents you from having to get up at night to drain your bladder. If you use the Mcmillan bag, simply restart your most recent plugging interval when you wake up (for example, if you were at the 6-hour interval before bed, start at this interval routine in the morning.) The site where a catheter is inserted into the urethra or abdomen may become pinkish, purplish, or develop a pus-like or crusty substance around it. These are your body's reactions to the catheter's presence and is very normal. You may wash around the catheter daily with soap and water. Rinse and dry these areas well. You may shower while wearing the catheter. Maintain good personal hygiene. If this site develops a redness that spreads, or is warm and painful to the touch, please call the office immediately. When changing from one bag to another, using a clean leg bag or Mcmillan bag and an alcohol prep. Wash your hands thoroughly with soap and water and swab the end of the drainage tubing that will be attached to the Mcmillan catheter. Disconnect the drainage bag from the Mcmillan catheter and put the bag aside. Attach a clean bag to the catheter. Wash your hands thoroughly afterwards. To clean the bags simply empty the urine from the bag and leave the spout open for cleaning. Mix a cup of vinegar and cup of cool water and flush the bag using a 50 mL syringe, or by submerging the bag under the mixture. Once the bag is filled, close the spout, and allow the liquid to stay in the bag for 30 minutes. Drain the cleaning solution and rinse the bag again with tap water. Hang dry with the cap off and the spout open. A commercially prepared urinary appliance vacuum cleaner repair person may also be used as instructed. It is important that when it is time to remove the catheter, do so in the morning, because you will need to urinate every 30-60 minutes on the day that you remove it. This is to keep the bladder empty and compressed, and to allow itself to heal. This is especially important for the suprapubic incision for those with suprapubic catheters. After removing the suprapubic catheter in particular, cover the site with a Band-Aid for the 1st 24-48 hours. Drink at least 2 quarts of liquid a day. Avoid caffeinated drinks as they may irritate the bladder and cause bladder spasms. Please remember to call the office once a week until the catheter is removed with an update on your progress. 8 HOW TO CARE FOR YOUR MCMILLAN CATHETER - FEMALE About this Topic: Mcmillan catheter is a thin, flexible tube that drains urine from your bladder. The catheter connects to a special bag. The bag holds the urine until you are able to empty the bag. You may need to have a catheter for a short time. You may need a catheter after you are sick or have had surgery. Sometimes a catheter is used for a long time. What Will the Results Be: Your urine will drain and you will prevent infection. What Care is Needed at Home? Ask your doctor what you need to do when you go home. Make sure you ask questions if you do not understand what the doctor says. This way you will know what you need to do. Your doctor may order a home health nurse to come to your house to help you learn to care for your catheter. Prevent infections: Wash your hands before and after handling your catheter. If you switch between a leg bag and an overnight drainage bag, be sure you clean the connection between the catheter and the bag before you switch bags. Ask your doctor what to use to clean the connection. Place a cap on the drainage bag you are not using and store in a clean towel. Rinse the empty drainage bag not in use with 1 cup vinegar mixed with 1 cup water. Care for the tube: Wash the skin around the catheter with soap and water each day. Pat the skin dry. Do not put anything on the tube. Keep the tube secure. Do not let the tube pull or catch when you are moving around during the day. Do not let the tube kink or loop. Care for the Drainage Bag: Keep your urine bag below your bladder. Drain the bag often to help keep you from getting an infection. Wear cotton underwear. 9 What Follow-Up Care Is Needed? Your doctor may ask you to make visits to the office to check on your progress. Be sure to keep these visits. What Lifestyle Changes are Needed? Drink 6-8 glasses of water every day. Take showers rather than soaking in a bath. Will Physical Activity Be Limited? Talk to your doctor about what you can and cannot do when the catheter is in place. What Problems Could Happen? The catheter has a balloon to hold it inside the bladder. The balloon can break or leak and the catheter can fall out. Urine flow stops or is blocked by kinks or bends in the tube or if the drain bag is kept higher than your bladder. You may see blood in the collecting tube or bag. Bladder infection. When Do I Need To Call the Doctor? Signs of infection like a fever of 100.4F (38C) or higher, chills, pain around the catheter, redness or swelling of the skin around the catheter. Urine has blood and it is dark or coffee colored, or is pus-like. Tube comes out or urine stops flowing. Burning or painful feeling in your bladder. You are not feeling better in 2-3 days or you are feeling worse. Teach Back: Helping You Understand The Teach Back Method helps you understand the information we are giving you. The idea is simple. After talking with the staff, tell them in your own words what you were just told. This helps to make sure the staff has covered each thing clearly. It also helps to explain things that may have been a bit confusing. Before going home, make sure you are able to do these: I can tell you about my condition. I can tell you how to prevent infection and care for the tube and bag of my Mcmillan catheter. I can tell you what I will do if my urine stops flowing or there is a burning or painful feeling in my bladder. 10 At Home Voiding Trial & Intraurethral Mcmillan Catheter Discontinuation Instructions After your operation, you may experience swelling around the bladder and urethra. Swelling may limit the ability to pass urine naturally through your urethra for several days, thus requiring a temporary Intraurethral Catheter (IUC). If postoperative recovery proceeds in an uncomplicated manner, an at home Voiding Trial (VT) will allow you to easily remove your IUC at home before your 1st postoperative visit to the office. The IUC may be removed on different days depending on surgical intensity to give swelling enough time to resolve. There is the rare chance an IUC may be removed & have to be reinserted if a patient cannot void. If you wake up with an IUC or fail a postop Voiding Trial (VT), you will be sent home with an IUC WITH CLAMP, DAY & NIGHT BAG, & MEASURING HAT. 1. The postop VT allows you to void once postoperatively. If you void 150-200mls, you pass! Otherwise it is best to go home with an IUC. 2. During the day, clamp the IUC for 3-4 hrs. to comfort, then drain into day bag and repeat. 3. The IUC may be changed to the larger night bag for drainage & sleep. An at home VT may be done in / for: DAY 1 ____ Outpatient carbon brusher assembler surgeries, transurethral bulking injections, incontinence slings, vaginal mesh excisions, & routine hysterectomies DAY 3: X Site specific cystocele, rectocele, enterocele, vaginal vault repairs, & robotic colpopexies / hysteropexy DAY 7: ____ Larger combined reconstructive procedures (ex: hysterectomy with repairs), Mccarty urethropexy, LeFort colpocleisis DO NOT ____ Fistula repairs, urethral reconstructions, & complex bladder repairs involving opening up REMOVE the bladder REMOVAL 1. Only do VT on WEEKDAYS 2. Grab IUC at the side port 3. Cut the port in half with scissors 4. Allow port to drain completely 5. Pull IUC out of your urethra BLADDER DRAINAGE INSTRUCTIONS Instructions for removing the IUC: If the IUC doesn't come out with gentle pulling, stop & call your healthcare provider right away. Before 8AM on the weekday of the at home VT, disconnect & empty the bag of urine from the IUC. Enter your shower and stand over the drain. Wash your hands with soap and clean, running water. Dry them well. Gather your supplies. This includes scissors and waste-basket. Cut the balloon port on the catheter with the scissors as seen in the picture above. Wait as the water from the balloon empties out of the cut end of the port. Once the balloon is emptied, gently pull out the catheter. Put the used catheter in the waste-basket. Use the towel to wipe up any spilled water or urine if needed. Wash your hands again. You pass your at home VT if you void 150mls within 6 hrs. Call the office to update your voiding status at [phone]. If you cannot void within 6 hrs., call the office for an afternoon visit to learn intermittent self-catheterization (ISC). SPECIAL INSTRUCTIONS Call Dr. Rod with the following problems: 1. Inability to remove the IUC. 2. You can't urinate within 8 hours after removing the catheter or the bladder is not emptying well. 3. Your belly (abdomen) is painful or bloated. 4. You see a lot of blood in the urine. Light bleeding for 24 hours is normal. 5. Symptoms of a urinary infection (pain, burning, urgency, frequency, or blood). 6. Fever greater than 100.4 F on 2 occasions 4 hours apart. 11 RECORD FOR VOIDED AND POSTVOID AMOUNTS Please record the time you void, the amount voided, and the amount left in your bladder after you empty it with your catheter. Date/Time Voided Amount Post Void Residual Amount Date/Time Voided Amount Post Void Residual Amount 12 HOME SUPPLY LIST Please contact your local pharmacy or medical supply store regarding supplies for the type of catheter you may have. Transurethral Mcmillan catheter 1 Night bag and 1 Day bag with leg strap Lubricating jelly Alcohol wipes Measuring hat for toilet seat 5 50 mL syringes Self-Intermittent Catheterization Supplies: 100 #11-Malay female catheters (hydrophilic if possible) Lubricating jelly Alcohol wipes Measuring hat for toilet seat Hand-held mirror Suprapubic catheter kit 1 Roll Transpire tape 1 inch 10 yards. 1. Box of 25 drain dressings, precut, 6 pi 4 x 4 1 package catheter plugs 1. 2000 mL urinary drainage bag 1 day bag with leg strap 1 60 mL syringe catheter tip 1 Quart vinegar 1 box appropriately sized clinical exam gloves. You may obtain the above supplies at your local pharmacy or medical supply shop. Call the pharmacy or medical supply shop first to check availability and pricing. 13 documented in this encounter [facility] 08-25-2023 History of Present illness Narrative DAY OF SURGERY/PROCEDURE GUIDELINES As a patient at the [facility], you can expect quality medical and nursing care that is centered on your individual needs. It is our goal to make your surgical experience as comfortable and excellent as possible. ____ The following instructions are general guidelines, if any information on this sheet is different from what your doctor has instructed you to do, please follow your doctor's instructions. Please arrive on 08/31 @ 600 am Enter through entrance C. Check in at registration Upon arrival you will be taken to the pre-operative area to get ready for surgery, your family will stay in the waiting room and visit with you once you are ready for surgery. Due to special limitations please limit visitation to 1-2 members of your family at a time. When it is time for surgery your family will return to the waiting room. Nothing to eat, drink, smoke, suck or chew after midnight (no water, gum, mints, cigarettes, cigars, pipes, snuff, chewing tobacco, etc.) or your surgery may be canceled. Take a shower or bath on the morning of your surgery/procedure (Hibiclens if directed) Do not apply any lotions. [place] your teeth, but do not swallow any water IN CASE OF ILLNESS - If you have a cold or flu symptoms (high fever, runny nose, sore throat, cough, etc.) rash, nausea, vomiting, loose stools, and/or recent contact with someone who has a contagious disease (chick pox, measles, etc.) please call your doctor before coming to the surgery center Take a small sip of water with heart, blood pressure, and/or seizure medication the morning of surgery. Prevacid DO NOT take anticoagulants (blood thinners, aspirin or aspirin-containing products) as instructed by your physician. Leave all jewelry at home and wear loose, comfortable clothing that is easy to put on and take off. If you will be returning home the same day as your surgery, you will need to have a responsible adult (18 years of age or older) present to drive you home. You will need someone stay with you at home for the first 24 hours following your surgery. This is due to the anesthesia and the medication given to you during surgery and recovery. documented in this encounter [facility] 08-21-2023 History of Present illness Narrative Subjective Cheryl Hector is a 58 y.o. female Chief Complaint Follow-up; Pre-op Clearance HPI Patient is here for follow-up continue management for previous presentation with Takotsubo cardiomyopathy, hyperlipidemia, obesity and for preoperative risk assessment for ADDICTION PSYCHIATRIST surgery/procedure. Since last time I saw her [...] Nitrofurantoin monohyd/m-cryst, Amoxicillin, Atorvastatin, Ezetimibe, Oxycodone, Pravastatin, Rlvffhm-zkm-hdo reductase inhibitors, and Ciprofloxacin Current Medications Current [...] discussion and plan. documented in this encounter [facility] Work Phone: 08-21-2023 Instructions Roro Lagunas CMA [...] of your visit. documented in this encounter [facility] Work Phone: 08-19-2023 Note HNO ID: [id number] Author: DEIRDRE MONTALVO MD Service: ? Author Type: Physician Type: Progress Notes Filed: 08/19/2023 10:34 Note Text: The record sent by patient's PCP is reviewed. It included the same information as provided by the patient on her portal. Deirdre Montalvo MD, MORA [facility] 08-15-2023 Note HNO ID: [id number] Author: DEIRDRE MONTALVO MD Service: ? Author Type: Physician Type: Progress Notes Filed: 08/15/2023 11:40 Note Text: Addendum: In a follow up [employer] message, patient indicated a diagnosis of benign adrenal adenoma. A copy of the CT scan report is requested. Also, I added labs for aldosterone, renin and BMP. She has uncontrolled/untreated hypertension. Deirdre Montalvo MD, MORA [facility] 08-13-2023 Note HNO ID: [id number] Author: DEIRDRE MONTALVO MD Service: ? Author [...] (PREVACID) 30 mg capsule Gastric Acid Secretion Car Coupler - Proton Pump Inhibitors (PPIs) loratadine-pseudoephedrine ER (CLARITIN-D 12 HOUR) 5-120 mg per tablet Take 1 tablet by mouth two times a day as needed. for allergy symptoms. 2nd Generation Antihistamine-Decongestant Combinations pantoprazole DR (PROTONIX) 40 mg tablet Gastric Acid Secretion Car Coupler - Proton Pump Inhibitors (PPIs) ALLERGIES Allergen [...] letter is provided. 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 Whether to proceed with additional evaluations for this possibility is to be de (more content not included)... [facility] 08-13-2023 History of Present illness Narrative [...] (PREVACID) 30 mg capsule Gastric Acid Secretion Car Coupler - Proton Pump Inhibitors (PPIs) loratadine-pseudoephedrine ER (CLARITIN-D 12 HOUR) 5-120 mg per tablet Take 1 tablet by mouth two times a day as needed. for allergy symptoms. 2nd Generation Antihistamine-Decongestant Combinations pantoprazole DR (PROTONIX) 40 mg tablet Gastric Acid Secretion Car Coupler - Proton Pump Inhibitors (PPIs) ALLERGIES Allergen [...] letter is provided. 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 CC: Patient's family physician [facility] 05-03-2022 Note Chief Complaint consultation for abdominal [...] (12/29/2014), Cystourethroscopy with (more content not included)... [facility] Comment on above: Result Comment: Elec tronically Signed By: BRENDA SOTO, Cristo Dueñas\Date and Time Signed: 05/03/22 16:43 EST Evaluation + Plan note No data available for this section General Surgery [facility] Evaluation note Diagnosis Low serum cortisol level- Primary Glucocorticoid deficiency Prediabetes Other abnormal glucose Uncontrolled hypertension Unspecified essential hypertension [facility] Diagnosis Takotsubo syndrome- Primary Mixed hyperlipidemia BMI 29.0-29.9,adult Preop cardiovascular exam Pre-operative cardiovascular examination documented in this encounter [facility] Work Phone: Evaluation note* Diagnosis S/P anterior colporrhaphy w/ Cypress dermis, Cystoscopy 09/01/23- Primary S/P anterior colporrhaphy w/ Cypress dermis, Cystoscopy 09/01/23 Cystocele, unspecified [facility] Is [facility] for [...] 5. Reviewed with her her recent lab -[facility] [address] DO Work Phone: History of [...] try to retrieve her recent labs from [facility] * 4. The patient was advised to lose weight and exercise. * 5. I reviewed with patient preoperative cardiac risk for her upcoming hysterectomy. I believe her operative risk is acceptable and she can proceed she was given permission to hold aspirin for 7 days prior to surgery [facility] [address] DO Work Phone: Hospital Discharge instructions No data available for this section General Surgery Dia Progress note No data available for this section General Surgery [place] Summary Purpose Family History No Family History [...] ECG 12 Lead Vamsi Serrano MD [address] [facility] [address], [address] [place] [id number] Referral ID Status Reason Start Date Expiration Date V isits Requested Visits Authorized [id number] Authorized 08/21/2023 08/20/2024 1 1 Specialty Diagnoses / Procedures Referred By Robbin muñoz Referred To Contact Cardiology Diagnoses Takotsubo syndrome Procedures Follow Up In Cardiology Vamsi Serrano MD [address] [facility], [address] [place] [address] Vamsi Serrano MD [address] [facility] [address] [place] [address] Referral ID Status Reason Start Date Expiration Date V isits Requested Visits Authorized [id number] Authorized 08/21/2023 08/20/2024 1 1 Specialty Diagnoses / Procedures Referred By Contac t Referred To Contact Diagnoses Prediabetes Procedures ENDOCRINOLOGY DIETITIAN VISIT (MNT) MEDICAL NUTRITION ASSMT&IVNTJ INDIV EACH 15 [place] MEDICAL NUTRITION ASSMT&IVNTJ INDIV EACH 15 [place] MEDICAL NUTRITION ASSMT&IVNTJ INDIV EACH 15 [place] MEDICAL NUTRITION ASSMT&IVNTJ INDIV EACH 15 [place] Deirdre Montalvo MD [address] [place] [address] Referral ID Status Reason Start Date Expiration Date Visits Requested Visits Authorized [id number] Authorized PCP Requested Referral 08/13/2023 08/12/2024 1 1 Additional Source Comments INFORMATION SOURCE (unrecogn ized section and content) DATE CREATED AUTHOR 09/11/2017 [facility] DATE CREATED AUTHOR AUTHOR'S ORGANIZ ATION 02/06/2022 [facility] DATE CREATED AUTHOR AUTHOR'S ORGANIZ ATION 06/03/2022 [facility] DATE CREATED AUTHOR AUTHOR'S ORGANIZ ATION 06/21/2022 [facility] DATE CREATED AUTHOR AUTHOR'S ORGANIZ ATION 09/13/2022 [facility] DATE CREATED AUTHOR AUTHOR'S ORGANIZ ATION 09/13/2022 [facility] DATE CREATED AUTHOR AUTHOR'S ORGANIZ ATION 08/19/2023 [facility] DATE CREATED AUTHOR AUTHOR'S ORGANIZ ATION 08/22/2023 [facility] DATE CREATED AUTHOR AUTHOR'S ORGANIZ ATION 09/04/2023 [facility] Patient Care team informatio n (unrecognized section and content) Fleece Tier Relationship Specialty Start Date End Date Sera Lambert MD [address] [facility] [place] [address] PCP - General Family Medicine 08/13/23 Fleece Tier Relationship Specialty Start Date End Date Sera Lambert MD [address] [place] [id number] PCP - General Family Medicine 08/13/23 Fleece Tier Relationship Specialty Start Date End Date Sera Lambert MD [address] [place] [phone] PCP - General Family Medicine 08/21/23 Fleece Tier Relationship Specialty Start Date End Date Sera Lambert MD [address] [place] [address] PCP - General Family Medicine 10/14/22 Source Comments (unrecognize d section and content) In the event this informatio n is protected by the Federal Confidentiality of Alcohol and Drug Abuse Patient Records regulations: The Federal rules restrict any use of the information to criminally investigate or prosecute any alcohol or drug abuse patient.[facility] the event this information is protected by the Federal Confidentiality of Alcohol and Drug Abuse Patient Records regulations: The Federal rules restrict any use of the information to criminally investigate or prosecute any alcohol or drug abuse patient.[facility] Reason for Visit (unrecogniz ed section and content) Reason Comments Follow-up Pre-op Clearance Specialty Diagnoses / Procedures Referred By Robbin muñoz Referred To Contact Diagnoses Takotsubo syndrome Procedures ECG 12 Lead Vamsi Serrano MD [address] [facility] 2, [facility] [address] [place] [address] Referral ID Status Reason Start Date Expiration Date V isits Requested Visits Authorized [id number] Authorized 08/21/2023 08/20/2024 1 1 Specialty Diagnoses / Procedures Referred By Robbin muñoz Referred To Contact Diagnoses Cystocele, unspecified Cystocele, unspecified [N81.10] Procedures NH ANTERIOR COLPORRAPHY RPR CYSTOCELE W/CYSTO NH CYSTOURETHROSCOPY NH ANTERIOR COLPORRAPHY RPR CYSTOCELE W/CYSTO CYSTOSCOPY CYSTOCELE REPAIR AXIS DERMIS 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 AND #4 Pete Dixon, DO [address] [address] [facility] [address] [place] [address] Referral ID Status Reason Start Date Expiration Date Visits Re quested Visits Authorized [id number] 1 1 Ordered Prescriptions (unrec ognized section and content) Prescription Sig Dispensed Refills Start Date End Da te tamsulosin (FLOMAX) 0.4 MG capsule Take 1 capsule by mouth daily for 7 days 7 capsule 0 09/01/2023 09/08/2023 cephALEXin (KEFLEX) 500 MG capsule Take 1 capsule by mouth 3 times daily for 7 days Please take for 5 days if discharged home without mcmillan catheter, take all 7 days if discharged home with mcmillan catheter. 21 capsule 0 09/01/2023 09/08/2023 oxyCODONE-acetaminophe n (PERCOCET) 5-325 MG per tabletIndications:S/P anterior colporrhaphy Take 1 tablet by mouth every 6 hours as needed for Pain for up to 5 doses. Intended supply: 7 days. Take lowest dose possible to manage pain Max Daily Amount: 4 tablets 5 tablet 0 09/01/2023 09/05/2023 senna-docusate (SENOKOT S) 8.6-50 MG per tablet Take 1 tablet by mouth at bedtime 30 tablet 0 09/01/2023 10/01/2023 ibuprofen (ADVIL;MOTRIN) 600 MG tablet Take 1 tablet by mouth in the morning, at noon, and at bedtime for 30 doses 30 tablet 0 09/01/2023 09/11/2023 ondansetron (ZOFRAN) 4 MG tablet Take 1 tablet by mouth 3 times daily as needed for Nausea or Vomiting 30 tablet 0 09/01/2023 Scheduled Active and Recently Administ ered Medications (unrecognized section and content) Medication Order 08/30/2023 08/31/2023 09/01/2023 ceFAZolin (ANCEF) 2,000 mg in sodium chloride 0.9 % 50 mL IVPB (mini-bag) (COMPLETED) 2,000 mg, IntraVENous, ONCE, 1 dose, On Fri09/01/23 at 0645, Antimicrobial Indications: Surgical Prophylaxis 0737 (New Bag - Prov ider: Lucy Lovelace, SWATCH FOLDER - ) famotidine (PEPCID) 20 mg in sodium chloride (PF) 0.9 % 10 mL injection 20 mg, IntraVENous, ONCE, 1 dose, On Fri09/01/23 at 0730, Administer over 2 minutes., STAT 0730 (Due) phenazopyridine (PYRIDIUM) tablet 100 mg (COMPLETED) 100 mg, Oral, ONCE, 1 dose, On Fri09/01/23 at 0645, Take with food. May cause discoloration of urine. 0630 (Given - Provid er: Elodia Esteves RN) sodium chloride flush 0.9 % injection 5-40 mL 5-40 mL, IntraVENous, EVERY 12 HOURS SCHEDULED (2 times per day), First dose on Fri09/01/23 at 0900, Until Discontinued, For Line Patency: Peripheral IV = 5 mL; Midline or Central Line = 10 mL/lumen. If following IV push medication, administer flush at same rate as the IV push. Flush volume is determined by type of infusion therapy being given. For non-viscous solutions use: Peripheral IV = 5 mL Midline or Central Line = 10 mL/lumen For viscous solutions (i.e. blood components, parenteral nutrition, contrast media, or after obtaining blood sample) use: Peripheral IV = 10 mL Midline or Central Line = 20 mL/lumen, Pre-op (day of surgery) 0900 (Due)2099 (Due) sodium chloride flush 0.9 % injection 5-40 mL 5-40 mL, IntraVENous, EVERY 12 HOURS SCHEDULED (2 times per day), First dose on Fri09/01/23 at 0900, Until Discontinued, For Line Patency: Peripheral IV = 5 mL; Midline or Central Line = 10 mL/lumen. If following IV push medication, administer flush at same rate as the IV push. Flush volume is determined by type of infusion therapy being given. For non-viscous solutions use: Peripheral IV = 5 mL Midline or Central Line = 10 mL/lumen For viscous solutions (i.e. blood components, parenteral nutrition, contrast media, or after obtaining blood sample) use: Peripheral IV = 10 mL Midline or Central Line = 20 mL/lumen, PACU only 899 (Due)2099 (Due) Continuous Medication Order 08/30/2023 08/31/2023 09/01/2023 lactated ringers IV soln infusion IntraVENous, at 125 mL/hr, CONTINUOUS, Starting on Fri09/01/23 at 0645, Pre-op (day of surgery) 0624 (New Bag - Prov ider: Elodia Esteves RN)0729 (NoRateChange - Provider: ANDREA Ellington CRNA)0817 (New Bag - Provider: ANDREA Ellington CRNA)0855 (Anesthesia Volume Adjustment - Provider: ANDREA Ellington CRNA) PRN Medication Order 08/30/2023 08/31/2023 09/01/2023 0.9 % sodium chloride infusion IntraVENous, at 5-250 mL/hr, PRN, if patient receiving piggyback infusions and maintenance fluids are not ordered OR KVO fluids to protect IV site / prevent frequent line interruptions/ long duration, Starting on Fri09/01/23 at 0623, For piggyback infusion, administer at same rate as piggyback for a total of 25 mL. Enter 25 mL into dose field and piggyback rate into rate field of order. If piggyback is infusing at a rate less than 100 mL/hr, enter 25 mL into dose field and 100 mL/hr into rate field of order. For KVO fluids, enter rate of 20 mL/hr or less into rate field of order., Pre-op (day of surgery) 0.9 % sodium chloride infusion IntraVENous, at 5-250 mL/hr, PRN, if patient receiving piggyback infusions and maintenance fluids are not ordered OR KVO fluids to protect IV site / prevent frequent line interruptions/ long duration, Starting on Fri09/01/23 at 0834, For piggyback infusion, administer at same rate as piggyback for a total of 25 mL. Enter 25 mL into dose field and piggyback rate into rate field of order. If piggyback is infusing at a rate less than 100 mL/hr, enter 25 mL into dose field and 100 mL/hr into rate field of order. For KVO fluids, enter rate of 20 mL/hr or less into rate field of order., PACU only hydrALAZINE (APRESOLINE) injection 10 mg(Linked Group 1) 10 mg, IntraVENous, EVERY 15 MIN PRN, 2 doses, Starting on Fri09/01/23 at 0834, Until Discontinued, High Blood Pressure, for SBP greater than 180 mmHg for 2 consecutive measurements taken from different sites, If heart rate is greater than 60 bpm, hold hydralazine and use labetalol if ordered, otherwise contact provider. Inform provider if SBP is still greater than 180 mmHg 10 minutes after second antihypertensive dose is administered., PACU only HYDROmorphone (DILAUDID) injection 0.3 mg 0.3 mg, IntraVENous, EVERY 5 MIN PRN, 2 doses, Starting on Fri09/01/23 at 0834, Until Discontinued, Pain Moderate (4-6), For Phase I. If Phase II oral narcotics have been administered in the last 60 minutes, do not administer IV narcotics unless specifically approved by provider., PACU only 912 (Given - Provid er: Aileen Simeon RN) HYDROmorphone (DILAUDID) injection 0.5 mg 0.5 mg, IntraVENous, EVERY 5 MIN PRN, 2 doses, Starting on Fri09/01/23 at 0834, Until Discontinued, Pain Severe (7-10), For Phase I. If Phase II oral narcotics have been administered in the last 60 minutes, do not administer IV narcotics unless specifically approved by provider., PACU only labetalol (NORMODYNE;TRANDATE) injection 10 mg(Linked Group 1) 10 mg, IntraVENous, EVERY 15 MIN PRN, 2 doses, Starting on Fri09/01/23 at 0834, Until Discontinued, High Blood Pressure, for SBP greater than 180 mmHg for 2 consecutive measurements taken from different sites., If heart rate is 60 bpm or less hold labetalol and use hydralazine if ordered, otherwise contact provider. Inform provider if SBP is still greater than 180 mmHg, 10 minutes after second antihypertensive dose is administered., PACU only lidocaine PF 1 % injection 1 mL 1 mL, IntraDERmal, ONCE PRN, 1 dose, Starting on Fri09/01/23 at 0623, Until Fri09/02/23 at 0623, IV start, Pre-op (day of surgery) naloxone 0.4 mg in 10 mL sodium chloride syringe IntraVENous, PRN, Opioid Reversal, Starting on Fri09/01/23 at 0834, PRN if respiratory rate is less than 6/min and patient is difficult to arouse then notify physician STAT. Mix 9 mL of sodium chloride 0.9% with 0.4 mg (1 mL) of naloxone (NARCAN) in 10 mL syringe. (Note: dilution is 0.04 mg/mL) Give 0.08 mg (2 mL of special dilution), slow IV push, repeat up to 0.4 mg (10 mL) or until patient is responsive to physical stimulation and respiratory rate is equal to or greater than 6 breaths/min. Continue to observe, if no response within 3 minutes of administration of 0.4 mg (10 mL) total, repeat dose (0.4 mg as administered previously). Concentration 0.04 mg/mL, PACU only prochlorperazine (COMPAZINE) injection 5 mg 5 mg, IntraVENous, ONCE PRN, 1 dose, Starting on Fri09/01/23 at 0834, Until Fri09/02/23 at 0834, Nausea, Initial antiemetic therapy., PACU only sodium chloride flush 0.9 % injection 5-40 mL 5-40 mL, IntraVENous, PRN, Starting on Fri09/01/23 at 0623, Until Discontinued, Line Care, After every IV line use, For Line Patency: Peripheral IV = 5 mL; Midline or Central Line = 10 mL/lumen. If following IV push medication, administer flush at same rate as the IV push. Flush volume is determined by type of infusion therapy being given. For non-viscous solutions use: Peripheral IV = 5 mL Midline or Central Line = 10 mL/lumen For viscous solutions (i.e. blood components, parenteral nutrition, contrast media, or after obtaining blood sample) use: Peripheral IV = 10 mL Midline or Central Line = 20 mL/lumen, Pre-op (day of surgery) 0708 (Given - Provid er: Elodia Esteves RN) sodium chloride flush 0.9 % injection 5-40 mL 5-40 mL, IntraVENous, PRN, Starting on Fri09/01/23 at 0834, Until Discontinued, Line Care, After every IV line use, For Line Patency: Peripheral IV = 5 mL; Midline or Central Line = 10 mL/lumen. If following IV push medication, administer flush at same rate as the IV push. Flush volume is determined by type of infusion therapy being given. For non-viscous solutions use: Peripheral IV = 5 mL Midline or Central Line = 10 mL/lumen For viscous solutions (i.e. blood components, parenteral nutrition, contrast media, or after obtaining blood sample) use: Peripheral IV = 10 mL Midline or Central Line = 20 mL/lumen, PACU only No Frequency Medication Order 08/30/2023 08/31/2023 09/01/2023 ceFAZolin (ANCEF) 2 g injection 1 dose, Starting on Fri09/01/23 at 0627, Until Fri09/01/23 at 1829, Elodia Esteves: cabinet overrLinn ly Nancy: cabinet override 0630 (Due) famotidine (PEPCID) 20 MG/2ML injection (COMPLETED) 1 dose, Starting on Fri09/01/23 at 0706, Until Fri09/01/23 at 1914, Elodia Esteves: cabinet overrideLinn Nancy: cabinet override 0708 (Given - Provid er: Elodia sEteves RN) sevoflurane inhalation liquid Starting on Fri09/01/23 at 0715, For 1 dose, Lucy LOVELACE: cabinet override 0730 (Due) Linked Groups Order Group 1: labetalol (NORMODYNE;TRANDATE) injection 10 mgJump to med 10 mg, IntraVENous, EVERY 15 MIN PRN, 2 doses, Starting on Fri09/01/23 at 0834, Until Discontinued, High Blood Pressure, for SBP greater than 180 mmHg for 2 consecutive measurements taken from different sites.
If heart rate is 60 bpm or less hold labetalol and use hydralazine if ordered, otherwise contact provider. Inform provider if SBP is still greater than 180 mmHg, 10 minutes after second antihypertensive dose is administered.
PACU only Or hydrALAZINE (APRESOLINE) injection 10 mgJump to med 10 mg, IntraVENous, EVERY 15 MIN PRN, 2 doses, Starting on Fri09/01/23 at 0834, Until Discontinued, High Blood Pressure, for SBP greater than 180 mmHg for 2 consecutive measurements taken from different sites
If heart rate is greater than 60 bpm, hold hydralazine and use labetalol if ordered, otherwise contact provider. Inform provider if SBP is still greater than 180 mmHg 10 minutes after second antihypertensive dose is administered.
PACU only FOR RECORDS PERTAINING TO PATIENTS WHO ARE [...] BE BASED ON THE PRIMARY CLINICAL RECORDS. [employer] provides no warranty or guarantee of the accuracy or completeness of information in this document.
[2023-09-06] MEDS: 0.9 % SODIUM CHLORIDE 1,000 ML 999 ML IV (17:12)
[2023-09-06 17:14] LABS: Basophils Absolute Auto 0.1 10^3/uL (0.0-0.1); Basophils Percent Auto 0.8 % (0.2-2.0); Eosinophils Absolute Auto 0.7 10^3/uL (0.0-0.7); Eosinophils Percent Auto 7.2 % (0.9-7.0); Hematocrit 33.8 % (36.0-48.0); Hemoglobin 11.2 g/dL (12.0-16.0); Immature Granulocytes Abs Auto 0.02 10^3/uL (0.00-0.03); Immature Granulocytes Pct Auto 0.2 % (0.0-0.5); Lymphocytes Absolute Auto 2.1 10^3/uL (1.2-3.8); Lymphocytes Percent Auto 22.3 % (20.5-60.0); Mean Corpuscular HGB Conc 33.1 g/dL (29.9-35.2); Mean Corpuscular Hemoglobin 28.3 pg (26.7-34.0); Mean Corpuscular Volume 85.4 fL (81.0-99.0); Mean Platelet Volume 9.9 fL (9.5-13.5); Monocytes Absolute Auto 0.6 10^3/uL (0.3-0.8); Monocytes Percent Auto 5.8 % (1.7-12.0); Neutrophils Absolute Auto 6.1 10^3/uL (1.4-6.5); Neutrophils Percent Auto 63.7 % (43.0-75.0); Platelet Count 307 10^3/uL (150-450); Red Blood Count 3.96 10^6/uL (4.20-5.40); Red Cell Distribution Width 12.7 % (11.0-15.0); White Blood Count 9.5 10^3/uL (4.0-11.0)
[2023-09-06 17:37] LABS: Lactate/Lactic Acid 1.3 mmol/L (0.4-2.0)
[2023-09-06 17:43] LABS: Alanine Aminotransferase 20 U/L (14-59); Albumin Globulin Ratio 1.2; Albumin Level 3.6 g/dL (3.4-5.0); Alkaline Phosphatase 76 U/L (46-116); Anion Gap 11.1; Aspartate Amino Transferase 11 U/L (15-37); BUN Creatinine Ratio 21.2; Bilirubin Total 0.4 mg/dL (0.2-1.0); Calcium 8.6 mg/dL (8.5-10.1); Carbon Dioxide 25.4 mmol/L (21.0-32.0); Chloride 106 mmol/L (98-107); Estimated GFR (African America >60 (>=60); Estimated GFR (Non-African Ame >60 (>=60); Globulin 3.1 g/dL; Glucose 179 mg/dL (74-106); Magnesium 2.1 mg/dL (1.8-2.4); Potassium 3.5 mmol/L (3.5-5.1); Sodium 139 mmol/L (136-145); Thyroid Stimulating Hormone 1.073 uIU/mL (0.358-3.740); Total Protein 6.7 g/dL (6.4-8.2)
[2023-09-06 17:46] LABS: INR 1.03; Prothrombin Time 10.9 sec (9.0-11.6)
[2023-09-06 17:57] LABS: D Dimer 0.49 mg/L FEU (<=0.59)
--- NOTE | 2023-09-06 18:01 | XR_ITS ---
[place] [id number] Patient Name: REBECCA HECTOR MRN: [id number] date: 1965 Sex: F Assigned Patient Location: ER Current Patient Location: ED.MAIN Accession/Order Number: [id number] Exam Date: 09/06/2023 18:12 Report Date: 09/06/2023 19:14 At the request of: STEVEN MCPHERSON Procedure: XR chest 1V EXAM: XR chest 1V , 09/06/2023 HISTORY: Palpitations COMPARISON: None. TECHNIQUE: Portable AP upright x-ray of the chest. FINDINGS: Cardiac silhouette within normal limits. Mild left basal atelectasis. No focal consolidation or pulmonary edema. No hilar or mediastinal enlargement. No acute osseous findings. XR/XR chest 1V IMPRESSION: No acute cardiopulmonary findings. Electronically authenticated by: VINOD OSORIO Date: 09/06/2023 19:14
== END 2023-09-06 19:22 | disposition home or self-care (01) ==
PROVIDERS: Physician Assistant; Emergency Provider Student in an Organized Health Care Education/Training Program; PCP Family Medicine
DX: R00.2 Palpitations (principal); I25.2 Old myocardial infarction; R06.02 Shortness of breath
CPT/HCPCS: 36415; 71045; 80053; 83605; 83735; 83880; 84443; 84484; 85025; 85378; 85610; 93005; 99285

== ENCOUNTER 2023-11-05 20:42 | Outpatient (OUT) | payer OTHER, SELFPAY ==
--- OUTSIDE RECORDS SUMMARY | 2023-11-05 21:01 | XMS_ITS | CCD ---
Author Organization [facility] CliniSyin Care Team Providers Care Storage Solutions Architect Name Role Phone VAMSI SERRANO Unavailable Unavailable [...] Care UnavailSera Youssef MD Primary Care Provider SERA LAMBERT Primary Care Unavailable DEIRDRE MONTALVO Attending Unavailable Sera Lambert MD Primary Care Provider [phone] VAMSI SERRANO Attending Unavailable SERA LAMBERT Primary [...] Allergy Type Date of Onset Reaction(s) Facility (13 sources) Amoxicillin; Translations: [amoxicillin] Drug Allergy 09-24-19 12 [place] (disorder), Unknown, Other, Hives [facility] [place] (5 sources) atorvastatin; Translations: [atorvastatin] Drug Allergy 06-04-19 Other [facility] y 250 DO Work Phone: (3 sources) ezetimibe; Translations: [Zetia] Drug Allergy 06-04-19 Other [facility] y 250 DO Work Phone: (4 sources) Hmg-Coa Reductase Inhibitors (Statins); Translations: [Statins] Allergy to drug (finding) [facility] Repository (5 sources) oxyCODONE; Translations: [oxycodone] Drug Allergy 06-04-19 24 Other [facility] y 250 DO Work Phone: (4 sources) Pravastatin; Translations: [Pravastatin Sodium TABS] Drug Allergy 06-04-19 24 Other [facility] y 250 DO Work Phone: (1 source) Amoxicillin Drug Allergy 02-22-20 17 [facility] Repository (1 source) Aspirin Drug Allergy 02-22-20 17 [facility] Repository (3 sources) Codeine; Translations: [codeine] Drug Allergy 09-24-19 12 [facility] Repository (1 source) oxyCODONE Drug Allergy 02-22-20 [facility] Repository (3 sources) Acetaminophen / oxyCODONE; Translations: [acetaminophen-oxy codone] Drug Allergy Projectile vomiting (disorder) [facility] [place] (7 sources) Aspirin / oxyCODONE; Translations: [aspirin-oxycodone ] Drug Allergy 09-24-19 12 Projectile vomiting (disorder), Unknown, Nausea And Vomiting [facility] [place] (6 sources) Codeine; Translations: [codeine] Drug Allergy 09-24-19 12 Edema (finding), Unknown, Hives [facility] [place] (2 sources) HMG-CoA reductase inhibitor; Translations: [statins] Drug allergy Unknown (qualifier value) [facility] [place] (5 sources) Latex; Translations: [latex] Allergy to substance 12-23-19 15 Itching, Rash [facility] (4 sources) NITROFURANTOIN, MACROCRYSTALS / Nitrofurantoin, Monohydrate; Translations: [nitrofurantoin] Drug Allergy 08-21-19 24 Joint pain (finding), Cutaneous eruption (morphologic abnormality), Other, Rash [facility] (1 source) Acetaminophen / oxyCODONE Drug Allergy 05-13-19 23 [facility] Repository (1 source) Adhesive agent Drug allergy (disorder) 12-23-19 15 [facility] Rep[facility] (1 source) Amoxicillin Drug Allergy 07-28-19 13 [facility] Repository (2 sources) black walnut pollen extract; Translations: [PSJTGPA-TJZ-JEI REDUCTASE INHIBITORS] Drug Allergy 05-13-19 23 [facility] Repository (1 source) Codeine Drug Allergy 07-28-19 13 [facility] Rep[facility] (1 source) Nitrofurantoin Drug Allergy 12-23-19 15 [facility] Repository (1 source) bandaids; Translations: [bandaids] Propensity to adverse reactions (disorder) [facility] Repository (6 sources) Ciprofloxacin; Translations: [CIPROFLOXACIN] Drug Allergy 05-08-19 Myalgia, Rash [facility] (1 source) OXYCODONE-ASPIRIN; Translations: [OXYCODONE-ASPIRIN ] Propensity to adverse reactions to drug (disorder) 09-24-19 12 [facility] Repository (2 sources) HMG-CoA reductase inhibitor Drug Allergy 10-16-19 23 Other, Myalgia [facility] Work Phone: (1 source) ezetimibe; Translations: [EZETIMIBE] Drug Allergy 06-04-19 24 [facility] Repository (1 source) Pravastatin; Translations: [PRAVASTATIN] Drug Allergy 06-04-19 24 [facility] Repository (1 source) NITROFURANTOIN MONOHYD/M-CRYST; Translations: [NITROFURANTOIN MONOHYD/M-CRYST] Propensity to adverse reactions to drug (disorder) 08-21-19 24 [facility] Repository (1 source) Acetaminophen / oxyCODONE Drug Allergy 10-16-19 23 Nausea And Vomiting [facility] (1 source) Nitrofurantoin Drug Allergy 08-25-19 24 Other (See Comments) [facility] Medications Current Medications Medication Drug Class(es) [...] Active docusate sodium 50 mg / sennosides, nursing home 8.6 mg oral tablet (2 sources) Start: [...] lansoprazole 30 mg delayed release oral capsule (5 sources) Proton Pump Inhibitor Start: 05-23-2023 lansoprazole (PREVACID) 30 mg capsule 10 ml lidocaine hydrochloride 10 mg/ml injection (1 source) Antiarrhythmic, Amide Local Anesthetic Start: 09-01-2023 End: 09-02-2023 lidocaine PF 1 % injection 1 mL 12 hr loratadine 5 mg / pseudoephedrine sulfate 120 mg extended release oral tablet (5 sources) alpha-Adrenergic Agonist Start: 08-13-2023 take 1 tablet by mouth every twelve hours as needed loratadine-pseudoe phedrine ER (CLARITIN-D 12 HOUR) 5-120 mg per tablet Take 1 tablet by mouth two times a day as needed. for allergy symptoms. 0 08/13/2023 Active Start: 08-13-2023 take 1 tablet by david th every twelve hours loratadine-pseudoephedrine (Claritin-D 1 2 Hour) 5-120 mg 12 hr tablet Take 1 tablet by mouth every 12 hours if needed. 08/13/2023 Active End: 08-25-2023 Loratadine-Pseudoephedrine ( CLARITIN-D [...] pantoprazole 40 mg delayed release oral tablet (3 sources) Proton Pump Inhibitor Start: 07-18-2023 pantoprazole [...] 0.4 mg oral capsule (1 source) alpha-Adrenergic Mathew Start: 09-01-2023 End: 09-08-2023 take 1 capsule [...] vaginally. 0 09/24/2011 08/13/2023 Discontinued estrogens, conjugated (nursing home) 0.625 mg/ml vaginal cream (1 source) Estrogen [...] capsule (5 sources) take 1 capsule by mo ut once daily as needed loratadine (CLARITIN) 10 [...] 8 09-02-2017 Chronic Diabetes mellitus without complication (4 sources) Prediabetes; Translations: [Prediabetes] Onset: 4 08-13-2023 [...] UNSPECIFIED] Onset: 3 Other aftercare (1 source) [facility] (current) use of aspirin; Translations: [[facility] CURRENT USE OF ASPIRIN] Onset: 3 Episodic Other aftercare (1 source) Other superintendent terminal (current) drug therapy; Translations: [OTH MENTAL HEALTH SOCIAL WORKER CURRENT DRUG THERAPY] Onset: 3 Episodic Other [...] 09-01-2023 Surgical Pathology Report (NOTE) Path Number: [id number] -- Diagnosis -- VAGINAL MUCOSA: -SQUAMOUS MUCOSA WITH NO PATHOLOGIC DIAGNOSIS Quentin Keys D.O. 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 Sectioning reveals meza, rubbery cut surfaces with no masses or lesions identified. Bit Gatherer sections 1c. erin Short/janina1:09/01/2023 Microscopic Description Microscopic examination performed. Processing Lab: [address] [address] Interpretation Performed at [address] [address] SURGICAL PATHOLOGY CONSULTATION Patient Name: CHERYL HECTOR [facility] Rec: [id number] [facility] ANATOMIC PATHOLOGY [address] [place] [phone] Normal [facility] ECG 12 Leadon 08-21-2023 Normal sinus rhythm [facility] Work Phone: CNOVon 08-13-2023 CNOV Office Visit (ENDOAV ) CHERYL HECTOR ([id number]) 1965 F Date Time Provider Department 08/13/23 1:00 PM DEIRDRE MONTALVO ENDOAV During your visit today, we recorded the [...] (PREVACID) 30 mg capsule Gastric Acid Secretion Regional Safety Manager - Proton Pump Inhibitors (PPIs) loratadine-pseudoephedrine ER (CLARITIN-D 12 HOUR) 5-120 mg per tablet Take 1 tablet by mouth two times a day as needed. for allergy symptoms. 2nd Generation Antihistamine-Decongestant Combinations pantoprazole DR (PROTONIX) 40 mg tablet Gastric Acid Secretion Regional Safety Manager - Proton Pump Inhibitors (PPIs) ALLERGIES Allergen [...] free cortis (more content not included)... Normal [facility] Basic Metabolic Profon 10-25 Anion gap [Moles/Vol] 10 mmol/L Normal 9-[address] [facility] Comment on above: Performed By: #### BMP, CDP, LIP, LIVP, TROPI #### [place] [address] Chief Of Anesthesiology: Kris Pardo MD Calcium [Mass/Vol] 9.3 mg/dL Normal 8.6-10.4 [facility] Comment on above: Performed By: #### BMP, CDP, LIP, LIVP, TROPI #### [place] [address] Chief Of Anesthesiology: Kris Pardo MD Chloride [Moles/Vol] 101 mmol/L Normal 98-107 [facility] Comment on above: Performed By: #### BMP, CDP, LIP, LIVP, TROPI #### [place] [address] Chief Of Anesthesiology: Kris Pardo MD CO2 [Moles/Vol] 28 mmol/L Normal 20-31 [facility] Comment on above: Performed By: #### BMP, CDP, LIP, LIVP, TROPI #### [place] [address] Chief Of Anesthesiology: Kris Pardo MD Creatinine [Mass/Vol] 0.6 mg/dL Normal 0.5-0.9 [facility] Comment on above: Performed By: #### BMP, CDP, LIP, LIVP, TROPI #### [place] [id number] [place] [address] Chief Of Anesthesiology: Kris Pardo MD GFR/1.73 sq M.predicted among non-blacks MDRD (S/P/Bld) [Vol rate/Area] mL/min/{1.73_m2} Normal >60 [facility] Comment on above: Result Comment: These [...] B MP, CDP, LIP, LIVP, TROPI #### [place] [address] Chief Of Anesthesiology: Kris Pardo MD Glucose [Mass/Vol] 102 mg/dL High 70-99 [facility] Comment on above: Performed By: #### BMP, CDP, LIP, LIVP, TROPI #### [place] [address] Chief Of Anesthesiology: Kris Pardo MD Potassium [Moles/Vol] 4.3 mmol/L Normal 3.7-5.3 [facility] Comment on above: Performed By: #### BMP, CDP, LIP, LIVP, TROPI #### [place] [address] Chief Of Anesthesiology: Kris Pardo MD Sodium [Moles/Vol] 139 mmol/L Normal 135-144 [facility] Comment on above: Performed By: #### BMP, CDP, LIP, LIVP, TROPI #### [place] [id number] Chief Of Anesthesiology: Kris Pardo MD Urea nitrogen [Mass/Vol] 13 mg/dL Normal 6-20 [facility] Comment on above: Performed By: #### BMP, CDP, LIP, LIVP, TROPI #### [place] [id number] Chief Of Anesthesiology: Kris Pardo MD CBC with Diffon 08-04-2023 Abs. Basophil 0.10 k/uL Normal 0.0-0.2 [facility] Comment on above: Performed By: #### BMP, CDP, LIP, LIVP, TROPI #### [place] [address] Chief Of Anesthesiology: Kris Pardo MD Abs.Neutrophil (Seg) 7.10 k/uL Normal 1.8-7.7 [facility] Comment on above: Performed By: #### BMP, CDP, LIP, LIVP, TROPI #### [place] [address] Chief Of Anesthesiology: Kris Pardo MD Basophils/100 WBC (Bld) 1 % Normal 0-2 [facility] Comment on above: Performed By: #### BMP, CDP, LIP, LIVP, TROPI #### [place] [address] Chief Of Anesthesiology: Kris Pardo MD Eosinophils (Bld) [#/Vol] 0.50 10*3/uL High 0.0-0.4 [facility] Comment on above: Performed By: #### BMP, CDP, LIP, LIVP, TROPI #### [place] [address] Chief Of Anesthesiology: Kris Pardo MD Eosinophils/100 WBC (Bld) 5 % High 1-4 [facility] Comment on above: Performed By: #### BMP, CDP, LIP, LIVP, TROPI #### [place] [address] Chief Of Anesthesiology: Kris Pardo MD Erythrocyte distribution width (RBC) [Ratio] 12.9 % Normal 12.5-15.4 [facility] Comment on above: Performed By: #### BMP, CDP, LIP, LIVP, TROPI #### [place] [address] Chief Of Anesthesiology: Kris Pardo MD Hematocrit (Bld) [Volume fraction] 36.9 % Normal 36-46 [facility] Comment on above: Performed By: #### BMP, CDP, LIP, LIVP, TROPI #### [place] [address] Chief Of Anesthesiology: Kris Pardo MD Hemoglobin (Bld) [Mass/Vol] 12.5 g/dL Normal 12.0-16.0 [facility] Comment on above: Performed By: #### BMP, CDP, LIP, LIVP, TROPI #### [place] [address] Chief Of Anesthesiology: Kris Pardo MD Lymphocytes (Bld) [#/Vol] 1.20 10*3/uL Normal 1.0-4.8 [facility] Comment on above: Performed By: #### BMP, CDP, LIP, LIVP, TROPI #### [place] [address] Chief Of Anesthesiology: Kris Pardo MD Lymphocytes/100 WBC (Bld) 13 % Low 24-44 [facility] Comment on above: Performed By: #### BMP, CDP, LIP, LIVP, TROPI #### [place] [address] Chief Of Anesthesiology: Kris Pardo MD MCH (RBC) [Entitic mass] 29.9 pg Normal 26-34 [facility] Comment on above: Performed By: #### BMP, CDP, LIP, LIVP, TROPI #### [place] [id number] Chief Of Anesthesiology: Kris Pardo MD MCHC (RBC) [Mass/Vol] 33.9 g/dL Normal 31-37 [facility] Comment on above: Performed By: #### BMP, CDP, LIP, LIVP, TROPI #### [place] [address] Chief Of Anesthesiology: Kris Pardo MD MCV (RBC) [Entitic vol] 88.0 fL Normal 80-100 [facility] Comment on above: Performed By: #### BMP, CDP, LIP, LIVP, TROPI #### [place] [address] Chief Of Anesthesiology: Kris Pardo MD Monocytes (Bld) [#/Vol] 0.60 10*3/uL Normal 0.1-1.2 [facility] Comment on above: Performed By: #### BMP, CDP, LIP, LIVP, TROPI #### [place] [address] Chief Of Anesthesiology: Kris Pardo MD Monocytes/100 WBC (Bld) 6 % Normal 2-11 [facility] Comment on above: Performed By: #### BMP, CDP, LIP, LIVP, TROPI #### [place] [address] Chief Of Anesthesiology: Kris Pardo MD Neutrophil (Seg) 75 % High 36-66 [facility] Comment on above: Performed By: #### BMP, CDP, LIP, LIVP, TROPI #### [place] [address] Chief Of Anesthesiology: Kris Pardo MD Platelet mean volume (Bld) [Entitic vol] 7.6 fL Normal 6.0-12.0 [facility] Comment on above: Performed By: #### BMP, CDP, LIP, LIVP, TROPI #### [place] [address] Chief Of Anesthesiology: Kris Pardo MD Platelets (Bld) [#/Vol] 287 10*3/uL Normal 140-450 [facility] Comment on above: Performed By: #### BMP, CDP, LIP, LIVP, TROPI #### [place] [address] Chief Of Anesthesiology: Kris Pardo MD RBC (Bld) [#/Vol] 4.20 10*6/uL Normal 4.0-5.2 [facility] Comment on above: Performed By: #### BMP, CDP, LIP, LIVP, TROPI #### [place] [address] Chief Of Anesthesiology: Kris Pardo MD WBC (Bld) [#/Vol] 9.4 10*3/uL Normal 3.5-11.0 [facility] Comment on above: Performed By: #### BMP, CDP, LIP, LIVP, TROPI #### [place] [address] Chief Of Anesthesiology: Kris Pardo MD CT ABDOMEN PELVIS W [...] Saeed Ortega MD 10/25/22 Final result Normal [facility] Lipaseon 10-25-2022 Lipase [Catalytic activity/Vol] 26 U/L Normal 13-60 [facility] Comment on above: Performed By: #### BMP, CDP, LIP, LIVP, TROPI #### [address] [address] Chief Of Anesthesiology: Kris Pardo MD Liver Profileon 10-25-2022 Albumin [Mass/Vol] 4.2 g/dL Normal 3.5-5.2 [facility] Comment on above: Performed By: #### BMP, CDP, LIP, LIVP, TROPI #### [address] [address] Chief Of Anesthesiology: Kris Pardo MD Albumin/Glob Ratio 1.7 Normal 1.0-2.5 [facility] Comment on above: Performed By: #### BMP, CDP, LIP, LIVP, TROPI #### [place] [address] Chief Of Anesthesiology: Kris Pardo MD Alkaline Phos 67 U/L Normal 35-104 [facility] Comment on above: Performed By: #### BMP, CDP, LIP, LIVP, TROPI #### [place] [address] Chief Of Anesthesiology: Kris Pardo MD ALT [Catalytic activity/Vol] 23 U/L Normal 5-33 [facility] Comment on above: Performed By: #### BMP, CDP, LIP, LIVP, TROPI #### [place] [address] Chief Of Anesthesiology: Kris Pardo MD AST [Catalytic activity/Vol] 21 U/L Normal <32 [facility] Comment on above: Performed By: #### BMP, CDP, LIP, LIVP, TROPI #### [place] [address] Chief Of Anesthesiology: Kris Pardo MD Bilirubin [Mass/Vol] 0.3 mg/dL Normal 0.3-1.2 [facility] Comment on above: Performed By: #### BMP, CDP, LIP, LIVP, TROPI #### [place] [address] Chief Of Anesthesiology: Kris Pardo MD Bilirubin, Indirect 0.2 mg/dL Normal 0.0-1.0 [facility] Comment on above: Performed By: #### BMP, CDP, LIP, LIVP, TROPI #### [place] [address] Chief Of Anesthesiology: Kris Pardo MD Bilirubin.indire ct [Mass/Vol] 0.1 mg/dL Normal <0.3 [facility] Comment on above: Performed By: #### BMP, CDP, LIP, LIVP, TROPI #### [place] [address] Chief Of Anesthesiology: Kris Pardo MD Protein [Mass/Vol] 6.7 g/dL Normal 6.4-8.3 [facility] Comment on above: Performed By: #### BMP, CDP, LIP, LIVP, TROPI #### [place] [address] Chief Of Anesthesiology: Kris Pardo MD Troponinon 10-25-2022 Troponin, High Sens 7 ng/L Normal 0-14 [facility] Comment on above: Result Comment: High Sensitivity Troponi n values cannot be compared with other Troponin methodologies. Performed By: #### B MP, CDP, LIP, LIVP, TROPI #### [place] [address] Chief Of Anesthesiology: Kris Pardo MD UA w/Reflex Cultureon 2022 Bilirubin, SemiQt,Ur Negative Normal NEG [facility] Comment on above: Performed By: #### UAX UMICAO #### [place] [address] Chief Of Anesthesiology: Kris Pardo MD Blood, Urine MODERATE Abnormal NEG [facility] Comment on above: Performed By: #### UAX UMICAO #### [place] [address] Chief Of Anesthesiology: Kris Pardo MD Clarity (U) Clear Normal CLEAR [facility] Comment on above: Performed By: #### UAX, UMICAO #### [address] [address] Chief Of Anesthesiology: Kris Pardo MD Color (U) Yellow Normal YEL [facility] Comment on above: Performed By: #### UAX, UMICAO #### [place] [address] Chief Of Anesthesiology: Kris Pardo MD Glucose Ql (U) Negative Normal NEG [facility] Comment on above: Performed By: #### UAX, UMICAO #### [place] [address] Chief Of Anesthesiology: Kris Pardo MD Ketones Ql (U) Negative Normal NEG [facility] Comment on above: Performed By: #### UAX, UMICAO #### [place] [address] Chief Of Anesthesiology: Kris Pardo MD Leukocyte esterase Test strip Ql (U) Negative Normal NEG [facility] Comment on above: Performed By: #### UAX, UMICAO #### [place] [address] Chief Of Anesthesiology: Kris Pardo MD Nitrite,Ur Negative Normal NEG [facility] Comment on above: Performed By: #### UAX, UMICAO #### [place] [address] Chief Of Anesthesiology: Kris Pardo MD PH,Ur 7.0 Normal 5.0-8.0 [facility] Comment on above: Performed By: #### UAX, UMICAO #### [place] [address] Chief Of Anesthesiology: Kris Pardo MD Protein Ql (U) Negative Normal NEG [facility] Comment on above: Performed By: #### UAX, UMICAO #### [place] [address] Chief Of Anesthesiology: Kris Pardo MD Spec. Pease,Ur 1.006 Normal 1.005-1.030 [facility] Comment on above: Performed By: #### UAX, UMICAO #### [place] [address] Chief Of Anesthesiology: Kris Pardo MD Urobilinogen,Ur Normal Normal 0.0-1.0 [facility] Comment on above: Performed By: #### TERRENCE DUPONTICAO #### [place] [address] Chief Of Anesthesiology: Kris Pardo MD Urinalysis,Microon 3 Bacteria FEW Abnormal NONE [facility] Comment on above: Performed By: #### UAX, UMICAO #### [place] [address] Chief Of Anesthesiology: Kris Pardo MD Epithelial cells LM Ql (Urine sed) 0 TO 2 Normal 0-5 [facility] Comment on above: Performed By: #### UAX, UMICAO #### [place] [address] Chief Of Anesthesiology: Kris Pardo MD Other Observations Utilizing a urinalysis as the only screening method to exclude a potential Abnormal NREQ [facility] Comment on above: Result Comment: uropathogen can be unrel iable in many patient populations. Rapid screening tests are less sensitive than culture and if UTI is a clinical possibility, culture should be considered despite a negative urinalysis. Performed By: #### U AX, UMICAO #### [place] [address] Chief Of Anesthesiology: Kris Pardo MD Urine RBC's 20 TO 50 Normal 0-2 [facility] Comment on above: Performed By: #### UAX, UMICAO #### [place] [address] Chief Of Anesthesiology: Kris Pardo MD Urine WBC's 0 TO 2 Normal 0-5 [facility] Comment on above: Performed By: #### UAX, UMICAO #### [place] [address] Chief Of Anesthesiology: Kris Pardo MD Hgb/Hcton 10-21-2022 Hematocrit (Bld) [Volume fraction] 38.0 % Normal 36-46 [facility] Comment on above: Performed By: #### HH #### [place] [address] Chief Of Anesthesiology: Kris Pardo MD Hemoglobin (Bld) [Mass/Vol] 12.6 g/dL Normal 12.0-16.0 [facility] Comment on above: Performed By: #### HH #### [place] [address] Chief Of Anesthesiology: Kris Pardo MD OPERATIVE REPORTon OPERATIVE REPORT [address] [phone] OPERATIVE REPORT PATIENT NAME: CHERYL HECTOR : 1965 MED REC NO: [id number] ROOM: ACCOUNT NO: [id number] ADMIT DATE: 10/21/2022 PROVIDER: Pete Rod DO [...] the right upper quadrant as an accessory licensed physical therapist assistant port. The robot was docked with [...] The vaginal cuff was then closed with [id number] mucosal-mucosal Vicryl sutures incorporating the cuff angles [...] fascial closure (more content not included)... Normal [facility] Surgical Pathologyon 023 Surgical Pathology (NOTE) Path Number: [id number] -- Diagnosis -- A. UTERUS, CERVIX, AND [...] lumen lined by a meza-pink, soft mucosa. Bit Gatherer sections are submitted in [facility] as follows: 1 anterior cervix 2 posterior cervix 3 endomyometrial polyps 4 anterior endomyometrium 5 posterior endomyometrium 6-7 intramural and subserosal nodules, ambulatory service representative 8-9 one entire fallopian tube 10-12 one entire fallopian tube. B. CHERYL HECTOR, VAGINAL MUCOSA Received in formalin are three fragments of meza-calvillo, wrinkled and ragged vaginal mucosa ranging from 1.6 to 7.5 cm. Sectioning reveals meza-pink, rubbery cut surfaces with no obvious masses or lesions identified. Bit Gatherer sections 1c. tm Microscopic Description A, B. Microscopic examination performed. Processing Lab: [address] [phone] Interpretation Performed at [address] [phone] SURGICAL PATHOLOGY CONSULTATION Patient Name: CHERYL HECTOR [facility] [place] Rec: [id number] [facility] ANATOMIC PATHOLOGY [address] [place] [phone] Normal [facility] Type + Screenon 10-21-2022 Type + Screen Sample Expiration 10/24/2022,2359 Arm Band Number [id number] ABO/Rh(D) O POSITIVE Antibody Screen NEGATIVE Normal [facility] Comment on above: Performed By: #### TYS #### [address] [address] Chief Of Anesthesiology: Kris Pardo MD Type + Screenon 10-14-2022 Type + Screen Sample Expiration 10/24/2022,2359 Arm Band Number [id number] ABO/Rh(D) O POSITIVE Antibody Screen NEGATIVE [facility] Comment on above: Performed By: #### TYS #### [facility] [address] [place] [address] Chief Of Anesthesiology: Kris Pardo MD Office Visit (Cardiology)on 09-12-2022 [...] try to retrieve her recent labs from [place] [facility]. The patient was advised to lose [...] Signs Recorded: 12Sep2022 12:04PM Heart Rate70, Apical Ljavpbsg826, LUE, Sitting Cealtcamj51, LUE, Sitting Height5 ft 4 in Ttvlvc591 lb BMI Etvqlqdrve94.67 kg/m2 BSA Calculated1.81 Tobacco Useb) No PHQ-2 #1. Over the last 2 weeks have you felt down, depressed or hopeless? (If yes, answer PHQ-9 below)No PHQ-2 #2. Over the last 2 weeks have you felt little interest or pleasure in doin (more content not included)... Normal [employer] Tobacco Screening.on 023 Adult depression screening assessment [facility] [employer] 600 DO Work Phone: Fall risk assessment a) No falls within the last year [facility] [employer] 600 DO Work Phone: Tobacco use status CPHS b) No -[facility] [employer] 600 DO Work Phone: Ambulatory Visit Summaryon 0 06-05-2022 Ambulatory Visit Summary CHERYL HECTOR :1965 Visit Date:06/05/2022 Ambulatory Visit Instructions Your Care Team Attending Physician - Cristo CROCKER MD Primary Care Physician - Sera Lambert MD [...] stone Plantar fasciitis Normal [facility] General Surgery Office/Clini c Noteon 06-05-2022 [...] Recorded SARS-CoV-2 (COVID-19) mRNA-1273 vaccine 04/21/[address] [facility] Comment on above: Result Comment: Electronically Signed By : BRENDA SOTO, Cristo Dueñas\Date and Time Signed: 06/05/22 16:56 EDT Pathology Noteon 06-03-2022 Pathology Note [id number]:127 [facility] Outside Colonoscopyon 2022 Outside Colonoscopy [id number]:127 [facility] Reminderson 05-30-2022 Reminders - From: Nedra Juares LPN To: N - Clinical; Sent: 05/30/2022 09:37:12 EST Show up: 05/01/2032 07:00:00 EST Subject: colonoscopy recall Due Date/Time: 05/29/2032 07:00:00 EST Reminder/Recall Patient is due for screening colonoscopy 05/29/2032. [facility] Facesheeton 05-07-2022 Facesheet [id number]:127 [facility] Consent for Procedure/Surger yon 05-06-2022 Consent for Procedure/Surger y [id number]:127 Normal [facility] Ambulatory Visit Summaryon 0 05-03-2022 Ambulatory Visit Summary CHERYL HECTOR :1965 Visit Date:05/03/2022 Ambulatory Visit Instructions Your Care Team Attending Physician - BRENDA SOTO, Cristo Arias Primary Care Physician - Fausto SOTO, Sera This Is Your Medications List polyethylene glycol [...] [facility] Referral[facility] 023 Physician Referral [id number]:127 Normal [facility] MM screening mammo BI w/CADo n 01-24-2022 MM screening mammo BI w/CAD [facility] [place] [address] [place] [address] Mammography Report Signed Patient: Cheryl Hector MR#: [id number] : 1965 Acct:[id number] Age/Sex: 56 / F ADM Date: 01/24/22 Loc: MD Room: Type: [facility] Attending Dr: Jose Dangelo MD Copies [...] Kunal Osorio M.D.01/24/2022 4:44 PM Dictation Location: [facility] Transcribed By: [facility] 01/24/22 1644 Dictated By: Kunal Osorio II, MD 01/24/22 1640 Signed By: 01/24/22 9219 [facility] Tobacco Screening.on 022 Adult depression screening assessment No -[facility] [facility] 250 DO Work Phone: Tobacco use status [facility] b) No -[facility] [facility] 250 DO Work Phone: Vital Signs Date Time Vital Sign Value Performing Clinician Facility 09-01-2023 10:45-0400 Diastolic blood pressure 66 mm[Hg] Pete Rod DO Work Phone: [facility] 09-01-2023 10:45-0400 Heart rate 66 /min Pete Rod DO Work Phone: [facility] 09-01-2023 10:45-0400 Respiratory rate 12 /min Pete Rod DO Work Phone: [facility] 09-01-2023 10:45-0400 SaO2% (BldA) [Mass fraction] 92 % Pete Rod DO Work Phone: [facility] 09-01-2023 10:45-0400 Systolic blood pressure 119 mm[Hg] Pete Rod DO Work Phone: [facility] 09-01-2023 10:00-0400 Body temperature 97.3 [degF] Pete Rod DO Work Phone: [facility] 09-01-2023 06:13-0400 Body height 162.6 cm Pete Rod DO Work Phone: [facility] 09-01-2023 06:13-0400 Body mass index (BMI) [Ratio] 29.52 kg/m2 Pete Rod DO Work Phone: [facility] 09-01-2023 06:13-0400 Body weight 78.02 kg Pete Rod DO Work Phone: [facility] [email or web address] 08-21-2023 09:30-0400 Body height 162.6 cm Vamsi Serrano MD Work Phone: [facility] 08-21-2023 09:30-0400 Body mass index (BMI) [Ratio] 29.87 kg/m2 Vamsi Serrano MD Work Phone: [facility] 08-21-2023 09:30-0400 Body weight 78.93 kg Vamsi Serrano MD Work Phone: [facility] 08-21-2023 09:30-0400 Diastolic blood pressure 88 mm[Hg] Vamsi Serrano MD Work Phone: [facility] 08-21-2023 09:30-0400 Heart rate 74 /min Vamsi Serrano MD Work Phone: [facility] 08-21-2023 09:30-0400 Systolic blood pressure 126 mm[Hg] Vamsi Serrano MD Work Phone: [facility] 08-13-2023 12:58-0400 Body height 162.6 cm Deirdre Montalvo MD Work Phone: [facility] 08-13-2023 12:58-0400 Body mass index (BMI) [Ratio] 29.78 kg/m2 Deirdre Montalvo MD Work Phone: [facility] 08-13-2023 12:58-0400 Body weight 78.7 kg Deirdre Montalvo MD Work Phone: [facility] 08-13-2023 12:58-0400 Diastolic blood pressure 96 mm[Hg] Deirdre Montalvo MD Work Phone: [facility] Comment on above: ALICIA BP Average 08-13-2023 12:58-0400 Heart rate 68 /min Deirdre Montalvo MD Work Phone: [facility] 08-13-2023 12:58-0400 SaO2% (BldA) [Mass fraction] 100 % Deirdre Montalvo MD Work Phone: [facility] 08-13-2023 12:58-0400 Systolic blood pressure 150 mm[Hg] Deirdre Montalvo MD Work Phone: [facility] Comment on above: ALICIA BP Average 09-12-2022 12:04-0400 Body height 162.56 cm Janna E Mast Work Phone: [facility] [employer] 600 DO Work Phone: 09-12-2022 12:04-0400 Body mass index (BMI) [Ratio] 28.67 kg/m2 Janna E Mast Work Phone: [facility] [employer] 600 DO Work Phone: 09-12-2022 12:04-0400 Body surface area Derived from formula 1.81 m2 Janna E Mast Work Phone: [facility] [employer] 600 DO Work Phone: 09-12-2022 12:04-0400 Body weight 75.75 kg Janna E Mast Work Phone: [facility] [employer] 600 DO Work Phone: 09-12-2022 12:04-0400 Diastolic blood pressure 70 mm[Hg] Janna E Mast Work Phone: [facility] [employer] 600 DO Work Phone: 09-12-2022 12:04-0400 Heart rate 70 /min Janna E Mast Work Phone: [facility] [employer] 600 DO Work Phone: 09-12-2022 12:04-0400 Systolic blood pressure 104 mm[Hg] Janna E Mast Work Phone: [facility] [employer] 600 DO Work Phone: 05-03-2022 15:33-0500 Blood Pressure Location Cristo CROCKER [facility] [place] 05-03-2022 15:33-0500 Diastolic blood pressure 96 mm[Hg] Cristo CROCKER [facility] [place] 05-03-2022 15:33-0500 Heart rate 70 /min Cristo NILCali [facility] [place] 05-03-2022 15:33-0500 Respiratory rate 16 /min Cristo CROCKER [facility] Surgery [place] 05-03-2022 15:33-0500 Systolic blood pressure 134 mm[Hg] Cristo NILL [facility] [place] 05-22-2021 16:14-0500 Diastolic blood pressure 85 mm[Hg] Janna E Mast Work Phone: [facility] 250 DO Work Phone: 05-22-2021 16:14-0500 Systolic blood pressure 122 mm[Hg] Janna E Mast Work Phone: [facility] 250 DO Work Phone: 05-22-2021 15:57-0500 Body height 162.56 cm Janna E Mast Work Phone: [facility] 250 DO Work Phone: 05-22-2021 15:57-0500 Body mass index (BMI) [Ratio] 28.32 kg/m2 Janna E Mast Work Phone: [facility] 250 DO Work Phone: 05-22-2021 15:57-0500 Body surface area Derived from formula 1.8 m2 Janna E Mast Work Phone: [facility] 250 DO Work Phone: 05-22-2021 15:57-0500 Body weight 74.84 kg Janna E Mast Work Phone: [facility] 250 DO Work Phone: 05-22-2021 15:57-0500 Diastolic blood pressure 100 mm[Hg] Janna E Mast Work Phone: [facility] 250 DO Work Phone: 05-22-2021 15:57-0500 Heart rate 80 /min Janna E Mast Work Phone: [facility] 250 DO Work Phone: 05-22-2021 15:57-0500 Systolic blood pressure 140 mm[Hg] Janna E Mast Work Phone: [facility] 250 DO Work Phone: 05-16-2021 10:56-0500 102.2 1 Janna E Mast Work Phone: [facility] 250 DO Work Phone: Comment on above: FSLDL Encounters Encounter Date Encounter Type Care Provider Facility Start: 09-02-2023 ambulatory Deirdre Montalvo MD Work Phone: Endocrinology Start: 09-02-2023 Patient encounter procedure Deirdre Montalvo MD Work Phone: Endocrinology Comment on above: Checking if you've r eceived blood work results Start: 09-01-2023 End: 09-01-2023 ambulatory PETE ROD [facility] Start: 09-01-2023 End: 09-01-2023 Subsequent hospital visit by physician Pete Rod DO Work Phone: [facility] [place] Comment on above: S/P anterior colporr haphy w/ Paulina dermis, Cystoscopy 09/01/23 (Primary Dx); Cystocele, unspecified Start: 08-21-2023 End: 08-21-2023 ambulatory [facility] Ambulatory Start: 08-21-2023 End: 08-21-2023 Office outpatient visit 25 minutes Vamsi Serrano MD Work Phone: [facility] Comment on above: Takotsubo syndrome ( Primary Dx); Mixed hyperlipidemia; BMI 29.0-29.9,adult; Preop cardiovascular exam Start: 08-21-2023 End: 08-21-2023 Patient encounter status Vamsi Serrano MD Work Phone: [facility] Work Phone: Start: 08-14-2023 ambulatory Deirdre Montalvo MD Work Phone: Endocrinology Start: 08-14-2023 Patient encounter procedure Deirdre Montalvo MD Work Phone: Endocrinology Comment on above: Important Medical dx history info not mentioned Start: 08-13-2023 End: 08-13-2023 ambulatory SERA LAMBERT Facility:[facility] Start: 08-13-2023 End: 08-13-2023 Patient encounter procedure Deirdre Montalvo MD Work Phone: Endocrinology Comment on above: Low serum cortisol l evel (Primary Dx); Prediabetes; Uncontrolled hypertension Start: 10-25-2022 End: 10-25-2022 Emergency department patient visit SERA LAMBERT [facility] Start: 10-21-2022 End: 10-21-2022 ambulatory PETE J [facility] Start: 10-14-2022 End: 10-14-2022 ambulatory [place] [facility] Start: 09-12-[address] Vamsi Serrano Facility: Start: 09-12-2022 Patient encounter procedure Janna E Mast Work Phone: [facility] 600 DO Work Phone: Start: 06-05-2022 End: 06-06-2022 ambulatory Cristo CROCKER Facility: [facility] Start: 06-05-2022 End: 06-05-2022 Patient encounter procedure Cristo CROCKER General Surgery [facility] Start: 06-03-2022 Telephone encounter Janna E Mas t Work Phone: [facility] 600 DO Work Phone: Start: 05-29-2022 End: 05-30-[address] CRISTO CROCKER . Facility: Start: 05-03-2022 End: 05-04-2022 ambulatory Sera Lambert Facility:[facility] Start: 05-03-2022 End: 05-03-2022 Patient encounter procedure Cristo CROCKER General Surgery N[facility]/Said [facility] Start: 04-25-2022 ambulatory Cristo CROCKER Facility : [facility] Start: 01-24-2022 End: 01-24-2022 ambulatory Sera Lambert Facility:[facility] Start: 05-22-2021 Office outpatient vi sit 15 minutes Janna E Mast Work Phone[facility] 250 DO Work Phone: Start: 07-02-2017 Ambulatory VAMSI SERRANO Faci lity:1532 Patient encounter status Janna E Mast Work Phone: [facility] 600 DO Work Phone: Procedures Date Procedure [...] 05-29-2032 Screening for malignant neoplasm of colon [facility] Start: 10-25-2025 Diabetes Screening Diabetes Screenin g [facility] Start: 09-14-2024 End: 09-14-2024 Patient encounter procedure 09/14/2024 9:20 AM EDT Office Visit [address] [place] [address] Vamsi Serrano MD [address] [facility] [address] [place] [address] [facility] Start: 11-23-2023 Influenza vaccination Influenz a Vaccine (Season Ended) [facility] Start: 10-23-2023 Influenza vaccination Flu vacc ine (Season Ended) MANDI URBINA [facility] Start: 10-07-2023 End: 10-07-2023 Patient encounter procedure 10/07/2023 3:00 PM EDT Office Visit [facility] [address] [place] [address] Pete Rod, DO [address] [facility] [address] [place] [address] 6 WK PO [facility] Comment on above: 6 WK PO Start: 09-16-2023 FUV, Provider: Vamsi Serrano, Status: Pen, Time: 10:10 AM FUV, Provider: Vamsi Serrano, Status: Pen, Time: 10:10 AM [facility] 600 DO Work Phone: Start: 09-08-2023 End: 09-08-2023 Patient encounter procedure 09/08/2023 9:00 AM EDT Office Visit [facility] [address] [facility] [address] [place] [address] Skye Coles, DATASTAGE CONSULTANT - MEDICAL REIMBURSEMENT SPECIALIST [address] [facility] [address] [place] [address] 1 WK PO [facility] Comment on above: 1 WK PO Start: 09-01-2023 End: 09-01-2023 Anterior colporraphy rpr cystocele w/cysto VAGINAL ANTERIOR REPAIR Cystocele, unspecified 09/01/2023 7:29 AM EDT [facility] Start: 08-21-2023 End: 08-20-2024 Lipid 1996 panel - Serum or Plasma Lipid Panel Lab Routine Mixed hyperlipidemia Expected: 08/21/2023 (Approximate), Expires: 08/20/2024 [facility] Service Area Work Phone: Comment on above: Expected: 08/21/2023 (Approximate), Expires: 08/20/2024 Start: 2023 Respiratory Syncytia l Virus (RSV) or age 60 yrs+ (1 - 1-dose 60+ series) Respiratory Syncytial Virus (RSV) or age 60 yrs+ (1 - 1-dose 60+ series) [facility] Start: 2023 RSV patient s and/or patients aged 60+ years (1 - 1-dose 60+ series) RSV patients and/or patients aged 60+ years (1 - 1-dose 60+ series) [facility] Start: 2023 RSV Vaccine (1 - 1-dose 60+ series) RSV Vaccine (1 - 1-dose 60+ series) [facility] Start: 03-24-2023 Behavioral Health Screening Behavioral Health Screening [facility] Start: 11-22-2022 Covid-19 Vaccine ( season) Covid-19 Vaccine ( season) [facility] Start: 10-08-2022 FUV, Provider: Vamsi Serrano, Status: Pen, Time: 2:00 PM FUV, Provider: Vamsi Serrano, Status: Pen, Time: 2:00 [facility] Work Phone: Start: 06-04-2022 FUV, Provider: Vamsi Serrano, Status: Pen, Time: 3:50 PM FUV, Provider: Vamsi Serrano, Status: Pen, Time: 3:50 PM [facility] 250 DO Work Phone: Start: 07-24-2013 Shingles vaccine (1 of 2) Shingles vaccine (1 of 2) [facility] Start: 07-24-2013 Shingrix Vaccine (1 of 2) Shingrix Vaccine (1 of 2) [facility] Start: 07-24-2013 Zoster Vaccines (1 o f 2) Zoster Vaccines (1 of 2) [facility] Start: 07-24-2008 Lipid panel Lipid Screening [facility] Start: 07-24-2008 Screening for malignant neoplasm of colon [facility] Start: 2003 Lipid panel Lipids [facility] Start: 2003 Screening for malignant neoplasm of breast [facility] Start: 02-18-2002 Hepatitis B Vaccines (2 of 3 - 19+ 3-dose series) Hepatitis B Vaccines (2 of 3 - 19+ 3-dose series) [facility] Start: 07-24-1998 Diabetes screen Diabetes screen [facility] Start: 07-24-1993 Screening for malignant neoplasm of cervix HPV Testing [facility] Start: 07-24-1985 DTaP/Tdap/Td Vaccine s (1 - Tdap) DTaP/Tdap/Td Vaccines (1 - Tdap) [facility] Start: 07-24-1984 Screening for malignant neoplasm of cervix [facility] Start: 07-24-1982 DTaP/Tdap/Td vaccine (1 - Tdap) DTaP/Tdap/Td vaccine (1 - Tdap) [facility] Start: 07-24-1982 Urine microalbumin profile DTaP,Tdap,Td Vaccine (1 - Tdap) [facility] Start: 07-24-1981 Diabetes mellitus screening Diabetes Screening [facility] Start: 07-24-1981 Hepatitis C screening [facility] Start: 07-24-1981 HIV screening HIV Screening [facility] Start: 07-24-1978 HIV screening HIV screen [facility] Start: 1975 Depression Screen Depression Screen [facility] Start: 07-24-1964 MMR Vaccines (1 of 1 - Standard series) MMR Vaccines (1 of 1 - Standard series) [facility] Start: 1965 HIV screening HIV Screening [facility] Start: 1965 Lipid panel Lipid Panel [facility] Start: 1965 Screening for malignant neoplasm of colon [facility] Start: 1965 Yearly Adult Physical Yearly Adult P hysical [facility] End: 09-01-2023 Glucose [Mass/volume] in Serum or Plasma POCT Glucose Point of Care Testing Routine One Time for 1 Occurrences starting 09/01/2023 until 09/01/2023 [facility] [email or web address] Comment on above: One Time for 1 Occur rences starting 09/01/2023 until 09/01/2023 End: 09-01-2023 INITIATE PACU OXYGEN THERAPY PROTOCOL Initiate PACU Oxygen Therapy Protocol Respiratory Care Routine Continuous until discontinued starting 09/01/2023 [facility] Comment on above: Continuous until dis continued starting 09/01/2023 Oxygen therapy [Minimum Data Set] Initiate Oxygen Therapy Protocol Respiratory Care Routine As Needed until discontinued starting 09/01/2023 [facility] Work Phone: Comment on above: As Needed until disc ontinued starting 09/01/2023 End: 09-01-2023 , urine POCT , urine POCT Point of Care Testing Routine One Time for 1 Occurrences starting 09/01/2023 until 09/01/2023 [facility] Comment on above: One Time for 1 Occur rences starting 09/01/2023 until 09/01/2023 Surgical Pathology Surgical Path ology Lab Routine Cystocele, unspecified Release Upon Ordering for 1 Occurrences starting 09/01/2023 [facility] Work Phone: Comment on above: Release Upon Orderin g for 1 Occurrences starting 09/01/2023 End: 09-01-2023 SURGICAL PATHOLOGY REPORT SURGICAL PATHOLOGY REPORT Lab Routine Once for 1 Occurrences starting 09/01/2023 until 09/01/2023 [facility] Comment on above: Once for 1 Occurrenc es starting 09/01/2023 until 09/01/2023 Immunizations Immunization Date Immunization Notes Care Provider [facility] 01-23-2022 influenza, seasonal, injectable Janna E Mast Work Phone: [facility] 600 DO Work Phone: 01-23-2022 influenza virus vaccine, unspecified formulation Deirdre Montalvo MD Work Phone: [facility] 01-22-2022 influenza virus vaccine, unspecified formulation Cristo CROCKER [facility] [place] 03-19-2021 Moderna COVID-19 Vaccine 100 MCG/0.5ML Intramuscular Suspension Janna E Mast Work Phone: [facility] [place] 05-19-2020 Moderna COVID-19 Vaccine 100 MCG/0.5ML Intramuscular Suspension Janna E Mast Work Phone: [facility] [place] 04-21-2020 Moderna COVID-19 Vaccine 100 MCG/0.5ML Intramuscular Suspension Janna E Mast Work Phone: [facility] [place] 01-18-2020 influenza virus vaccine, unspecified formulation Janna E Mast Work Phone: [facility] 250 DO Work Phone: 12-23-2019 influenza virus vaccine, unspecified formulation Janna E Mast Work Phone: [facility] 250 DO Work Phone: 12-23-2019 influenza, seasonal, injectable Vamsi Serrano MD Work Phone: [facility] Work Phone: 01-06-2018 influenza virus vaccine, unspecified formulation Janna E Mast Work Phone: [facility] 250 DO Work Phone: 12-22-2016 influenza virus vaccine, unspecified formulation Janna E Mast Work Phone: [facility] 250 DO Work Phone: 01-21-2002 hepatitis B vaccine, adult dosage Janna E Mast Work Phone: [facility] 250 DO Work Phone: Payers Date Payer Category Payer Self-pay 2014 Unknown 1965 Unknown [id number] 2.16.84 [id number] 1965 Unknown [id number] 2.16.8 [id number] 1965 Unknown [id number] 2.16.8 [id number] 1965 Unknown [id number] 2.16.8 [id number] 1965 Unknown [id number] 2.16.8 [id number] 1965 Unknown [id number] 2.16. [id number] 1965 Unknown [id number] 2.16.8 [id number] 1965 Unknown [id number] 2.16. [id number] 1965 Unknown [id number] 2.16. [id number] 1965 Unknown [id number] 2.16. [id number] 1965 Unknown [id number] 2.16. [id number] 1959 Unknown [id number] Unknown [id number] 2.16.8 [id number] Social History Date Type Detail Facility Start: 08-13-2023 End: 08-25-2023 Social alcohol use Social alcohol use [place] [address] DO Work Phone: Start: 05-03-2022 End: 08-13-2023 Tobacco smoking status Never smoked tobacco (finding) [facility] [place] Tobacco smoking status Never [facility] [place] Start: 08-13-2023 End: 08-25-2023 Sex Assigned At Female [facility] Start: 08-13-2023 End: 08-21-2023 Tobacco use and exposure Smokeless tobacco non-user [facility] Start: 08-13-2023 End: 08-15-2023 Alcohol intake Current drinker of alcohol (finding) [facility] Start: 08-13-2023 Alcohol Comment Once a week or less. [facility] Start: 1965 Sex Assigned At Not on file [facility] Start: 08-11-2023 End: 08-21-2023 Exposure to SARS-CoV-2 (event) Not sure [facility] Start: 08-25-2023 Alcohol Comment social-1x a week [facility] NEGATED: Highlighted rowStart: NINF History of tobacco use Passive smoker [facility] Medical Equipment Procedure Code Equipment Code Equipment Origin al Text Equipment Identifier Dates System Bulking P shania Bulkamid Urethral - [id number] Start: 10-21-2022 Allograft Paulina 6 cm X 8cm Tutoplast Processed Dermis - [id number] Start: 09-01-2023 Functional Status Date Assessment Result Facility 05-03-2022 Functional Status N/A [facility] Clinical Notes 05-03-2022 to 09-10-2023 Telephone Encounter - Deirdre Montalvo MD - 09/10/2023 5:24 PM EDTTelephone Encounter - Deirdre Montalvo MD - 09/10/2023 5:24 PM EDTTelephone Encounter - Freda Cruz RN - 09/05/2023 11:17 AM EDT Note Date & Type Note Facility 09-10-2023 Telephone encounter Note Labs August 19, 2023: BMP: normal. ACTH: 29.6 pg/ml (range 7-63) Cortisol: 12.9 ug/dl (range 6.2-19.4) Cortisol, free: 0.76 ug/dl (range 0.1-1.2) Aldosterone: 11.8 ng/dl Renin: Not received. Deirdre Montalvo MD, MORA [facility] 09-10-2023 Miscellaneous Notes Labs August 19, 2023: BMP: normal. ACTH: 29.6 pg/ml (range 7-63) Cortisol: 12.9 ug/dl (range 6.2-19.4) Cortisol, free: 0.76 ug/dl (range 0.1-1.2) Aldosterone: 11.8 ng/dl Renin: Not received. Deirdre Montalvo MD, MORA Labs are here, placed in folder. Called [facility] mayfield, she had to look back at labs from July and that were ordered by Dr. Montalvo. She found them will fax over. Received lab results placed in folder. Called MR sanjay Betancourt. They will fax labs over. Please obtain lab results from [facility], [place], [place]. Labs scanned on August 26, 2023 are from Apr, 2023. Results are not available on Care Everywhere. Deirdre Montalvo MD, MORA Patient requesting interpretation of lab results. Please see external 08/25. JACKIE: 08/13/2023 Next visit: Visit date not found Thank you! Patricia Oviedo RN documented in this encounter [facility] 09-05-2023 Telephone encounter Note Labs are here, placed in folder. [facility] 09-05-2023 Telephone encounter Note Called Dia mayfield, she had to look back at labs from July and that were ordered by Dr. Montalvo. She found them will fax over. [facility] 09-04-2023 Telephone encounter Note Received lab results placed in folder. [facility] 09-04-2023 Telephone encounter Note Called [facility] at [place]. They will fax labs over. [facility] 09-03-2023 Telephone encounter Note Please obtain lab results from [facility] [facility], [place], [place]. Labs scanned on August 26, 2023 are from Apr, 2023. Results are not available on Care Everywhere. Deirdre Montalvo MD, MORA [facility] 09-03-2023 Telephone encounter Note Patient requesting interpretation of lab results. Please see external 08/25. JACKIE: 08/13/2023 Next visit: Visit date not found Thank you! Patricia Oviedo RN [facility] 08-28-2023 Hospital Discharge instructions Aileen Simeon RN [...] (*See Special Considerations) -Short local travel (restaurant, latter-day) - Long distance travel > 1.5 hours [...] the office with any questions or concerns. [phone]. If during office hours, your issue may require an appointment. If after hours, the answering service will connect you with the physician Test Engine Operator. If you are concerned that your issue may be emergent, PLEASE CALL FIRST. Many issues may be resolved over the phone and avoid an unnecessary and expensive ER visit. If you truly have an emergency related to the surgery and call first: *You will be directed to the hospital ER in which you had your surgery. [facility] primarily or [facility] rarely. [facility] patients may be asked to report to [facility] if Dr. Rod's on-call partner is assuming responsibility. ER visits are ALWAYS covered by insurance (i.e. [facility] can go to a [facility] ER.) Calling 1st expedites your care [...] may be offered for allergies or sensitivities. Valders 325/5mg tablets or alternative narcotic. Take 1-2 tablets by mouth every 4-6 hours as needed for pain. Per [place] [employer] laws, only 1 week of narcotics may be prescribed at a time. Do not take extra Tylenol (Acetaminophen) orally as Valders already contains the medicine. May take 500mg orally every 4-6 hours if off of Valders. * Ibuprofen 400-800mg is safe to take. [...] in order to heal successfully in the superintendent terminal. Once you have fully recovered, you may focus on enjoying your life. Keep in mind, you will continue to heal for 6-12 months after surgery, so use common sense to protect your surgery (avoid repetitive heavy lifting, constipation, chronic pelvic strain.) In particular, if you had a hysterectomy, you may have both physical and emotional effects that may be brief or superintendent terminal. After hysterectomy, periods will stop, and a [...] blood clots in the legs or lungs, [place], or stroke. Elderly patients over the age [...] spout open. A commercially prepared urinary appliance aircraft cleaner may also be used as instructed. It [...] in / for: DAY 1 ____ Outpatient obstetrics gyn physician surgeries, transurethral bulking injections, incontinence slings, vaginal [...] office to update your voiding status at [phone]. If you cannot void within 6 hrs., [...] 50 mL syringes Self-Intermittent Catheterization Supplies: 100 #11-Yi female catheters (hydrophilic if possible) Lubricating jelly [...] and pricing. 13 documented in this encounter MAND[facility] 08-25-2023 History of Present illness Narrative DAY OF SURGERY/PROCEDURE GUIDELINES As a patient at the [facility], you can expect quality medical and nursing care that is centered on your individual needs. It is our goal to make your surgical experience as comfortable and excellent as possible. The following instructions are general guidelines, if [...] if directed) Do not apply any lotions. [place] your teeth, but do not swallow any [...] surgery and recovery. documented in this encounter [facility] 08-21-2023 History of Present illness Narrative Subjective Cheryl Hector is a 58 y.o. female Chief Complaint Follow-up; Pre-op Clearance HPI Patient is here for follow-up continue management for previous presentation with Takotsubo cardiomyopathy, hyperlipidemia, obesity and for preoperative risk assessment for GROUND CREW CHIEF surgery/procedure. Since last time I saw her [...] Nitrofurantoin monohyd/m-cryst, Amoxicillin, Atorvastatin, Ezetimibe, Oxycodone, Pravastatin, Vxlzjoo-pcq-tej reductase inhibitors, and Ciprofloxacin Current Medications Current [...] Scribe Attestation By signing my name below, IPilar LPN , Scribe attest that this documentation [...] discussion and plan. documented in this encounter [facility] Work Phone: 08-21-2023 Instructions Roro Lagunas CMA [...] of your visit. documented in this encounter [facility] Work Phone: 08-19-2023 Note HNO ID: [id number] Author: DEIRDRE MONTALVO MD Service: ? Author Type: Physician Type: Progress Notes Filed: 08/19/2023 10:34 Note Text: The record sent by patient's PCP is reviewed. It included the same information as provided by the patient on her portal. Deirdre Montalvo MD, MORA [facility] 08-15-2023 Note HNO ID: [id number] Author: DEIRDRE MONTALVO MD Service: ? Author Type: Physician Type: Progress Notes Filed: 08/15/2023 11:40 Note Text: Addendum: In a follow up [employer] message, patient indicated a diagnosis of benign adrenal adenoma. A copy of the CT scan report is requested. Also, I added labs for aldosterone, renin and BMP. She has uncontrolled/untreated hypertension. Deirdre Montalvo MD, MORA [facility] 08-13-2023 Note HNO ID: [id number] Author: DEIRDRE MONTALVO MD Service: ? Author [...] (PREVACID) 30 mg capsule Gastric Acid Secretion Regional Safety Manager - Proton Pump Inhibitors (PPIs) loratadine-pseudoephedrine ER (CLARITIN-D 12 HOUR) 5-120 mg per tablet Take 1 tablet by mouth two times a day as needed. for allergy symptoms. 2nd Generation Antihistamine-Decongestant Combinations pantoprazole DR (PROTONIX) 40 mg tablet Gastric Acid Secretion Regional Safety Manager - Proton Pump Inhibitors (PPIs) ALLERGIES Allergen [...] to be de (more content not included)... [facility] 08-13-2023 History of Present illness [...] (PREVACID) 30 mg capsule Gastric Acid Secretion Regional Safety Manager - Proton Pump Inhibitors (PPIs) loratadine-pseudoephedrine ER (CLARITIN-D 12 HOUR) 5-120 mg per tablet Take 1 tablet by mouth two times a day as needed. for allergy symptoms. 2nd Generation Antihistamine-Decongestant Combinations pantoprazole DR (PROTONIX) 40 mg tablet Gastric Acid Secretion Regional Safety Manager - Proton Pump Inhibitors (PPIs) ALLERGIES Allergen [...] Montalvo MD, MORA documented in this encounter [facility] 05-29-2022 Note OPERATIVE NOTE OPERATION DATE: [...] good condition. CC: Patient's family physician [facility] 05-03-2022 Note Chief Complaint consultation for [...] available for this section General Surgery [place] Evaluation note Diagnosis Low serum cortisol level- Primary Glucocorticoid deficiency Prediabetes Other abnormal glucose Uncontrolled hypertension Unspecified essential hypertension [facility] Takotsubo syndrome- Primary Mixed hyperlipidemia BMI 29.0-29.9,adult Preop cardiovascular exam Pre-operative cardiovascular examination documented in this encounter [facility] Work Phone: Evaluation note* Diagnosis S/P anterior colporrhaphy w/ Paulina dermis, Cystoscopy 09/01/23- Primary S/P anterior colporrhaphy w/ Paulina dermis, Cystoscopy 09/01/23 Cystocele, unspecified [facility] Is here for [...] 5. Reviewed with her her recent lab -[facility] 250 DO Work Phone: History [...] try to retrieve her recent labs from [place] * 4. The patient was advised to lose weight and exercise. * 5. I reviewed with patient preoperative cardiac risk for her upcoming hysterectomy. I believe her operative risk is acceptable and she can proceed she was given permission to hold aspirin for 7 days prior to surgery [facility] 600 DO Work Phone: Hospital Discharge instructions No data available for this section General Surgery [place] Progress note No data available for this section General Surgery [place] Summary Purpose Family History No Family History [...] is being seen for an annual follow-up of.CEHRYL HECTOR is being seen for poc hysterectomy. Reason for Referral Specialty Diagnoses / Procedures Referred By Contac t Referred To Contact Diagnoses Takotsubo syndrome Procedures ECG 12 Lead Vamsi Serrano MD [address] [facility], [place] [address] [place] [id number] Referral ID Status Reason Start Date Expiration Date V isits Requested Visits Authorized [id number] Authorized 08/21/2023 08/20/2024 1 1 Specialty Diagnoses / Procedures Referred By Contac t Referred To Contact Cardiology Diagnoses Takotsubo syndrome Procedures Follow Up In Cardiology Vamsi Serrano MD [address] [facility], [address] [place] [address] Vamsi Serrano MD [address] [facility], [facility] [address] [place] [address] Referral ID Status Reason Start Date Expiration Date V isits Requested Visits Authorized [id number] Authorized 08/21/2023 08/20/2024 1 1 Specialty Diagnoses / Procedures Referred By Contac t Referred To Contact Diagnoses Prediabetes Procedures ENDOCRINOLOGY DIETITIAN VISIT (MNT) MEDICAL NUTRITION ASSMT&IVNTJ INDIV EACH 15 [facility] MEDICAL NUTRITION ASSMT&IVNTJ INDIV EACH 15 [facility] MEDICAL NUTRITION ASSMT&IVNTJ INDIV EACH 15 [facility] MEDICAL NUTRITION ASSMT&IVNTJ INDIV EACH 15 [facility] Deirdre Montalvo MD [address] [place] [address] Referral ID Status Reason Start Date Expiration Date Visits Requested Visits Authorized [id number] Authorized PCP Requested Referral 08/13/2023 08/12/2024 1 1 Additional Source Comments INFORMATION SOURCE (unrecogn ized section and content) DATE CREATED AUTHOR 09/11/2017 [facility] DATE CREATED AUTHOR AUTHOR'S ORGANIZ ATION 02/06/2022 [facility] DATE CREATED AUTHOR AUTHOR'S ORGANIZ ATION 06/03/2022 [facility] DATE CREATED AUTHOR AUTHOR'S ORGANIZ ATION 06/21/2022 [facility] ical [facility] DATE CREATED AUTHOR AUTHOR'S ORGANIZ ATION 09/13/2022 [facility] DATE CREATED AUTHOR AUTHOR'S ORGANIZ ATION 09/13/2022 [facility] DATE CREATED AUTHOR AUTHOR'S ORGANIZ ATION 08/19/2023 [facility] DATE CREATED AUTHOR AUTHOR'S ORGANIZ ATION 08/22/2023 [facility] DATE CREATED AUTHOR AUTHOR'S ORGANIZ ATION 10/11/2023 [facility] Patient Care team informatio n (unrecognized section and content) Storage Solutions Architect Relationship Specialty Start Date End Date Sera Lambert MD [address] [id number] PCP - General Family Medicine 08/13/23 Storage Solutions Architect Relationship Specialty Start Date End Date Sera Lambert MD [address] [place] [address] PCP - General Family Medicine 08/13/23 Storage Solutions Architect Relationship Specialty Start Date End Date Sera Lambert MD [address] [place] [address] PCP - General Family Medicine 08/21/23 Storage Solutions Architect Relationship Specialty Start Date End Date Sera Lambert MD [address] [place] [address] PCP - General Family Medicine 10/14/22 Storage Solutions Architect Relationship Specialty Start Date End Date Sera Lambert MD [address] [place] [address] PCP - General Family Medicine 08/13/23 Source Comments (unrecognize d section and content) In the event this informatio n is protected by the Federal Confidentiality of Alcohol and Drug Abuse Patient Records regulations: The Federal rules restrict any use of the information to criminally investigate or prosecute any alcohol or drug abuse patient.[facility] the event this information is protected by the Federal Confidentiality of Alcohol and Drug Abuse Patient Records regulations: The Federal rules restrict any use of the information to criminally investigate or prosecute any alcohol or drug abuse patient.[facility] the event this information is protected by the Federal Confidentiality of Alcohol and Drug Abuse Patient Records regulations: The Federal rules restrict any use of the information to criminally investigate or prosecute any alcohol or drug abuse patient.[facility] Reason for Visit (unrecogniz ed section and content) Reason Comments Follow-up Pre-op Clearance Specialty Diagnoses / Procedures Referred By Contac t Referred To Contact Diagnoses Takotsubo syndrome Procedures ECG 12 Lead Vamsi Serrano MD [address] [place] [address], [address] [address] Referral ID Status Reason Start Date Expiration Date V isits Requested Visits Authorized [id number] Authorized 08/21/2023 08/20/2024 1 1 Specialty Diagnoses / Procedures Referred By Contac t Referred To Contact Diagnoses Cystocele, unspecified Cystocele, unspecified [N81.10] Procedures AK ANTERIOR COLPORRAPHY RPR CYSTOCELE W/CYSTO AK CYSTOURETHROSCOPY AK ANTERIOR COLPORRAPHY RPR CYSTOCELE W/CYSTO CYSTOSCOPY CYSTOCELE REPAIR AXIS DERMIS CAPIO NEEDLE REGISTERED NURSING PROFESSOR AND #4 [place] [address] [address] [facility] [address] [place] [address] Referral ID Status Reason Start Date Expiration Date Visits Re quested Visits Authorized [id number] 1 1 Ordered Prescriptions (unrec ognized section [...] (unrecognized section and content) Medication Order 08/30/2023 08/31/202309/01/2023 ceFAZolin (ANCEF) 2,000 mg in sodium chloride 0.9 % 50 mL IVPB (mini-bag) (COMPLETED) 2,000 mg, IntraVENous, ONCE, 1 dose, On Fri09/01/23 at 0645, Antimicrobial Indications: Surgical Prophylaxis 0737 (New Bag - Prov ider: Lucy Lovelace, DATASTAGE CONSULTANT - DIRECTOR OF HEALTH EDUCATION) famotidine (PEPCID) 20 mg in sodium chloride [...] 20 mL/lumen, Pre-op (day of surgery) 0900 (Due)2100 (Due) sodium chloride flush 0.9 % injection [...] Central Line = 20 mL/lumen, PACU only 0900 (Due)2100 (Due) Continuous Medication Order 08/30/2023 08/31/2023 09/01/2023 [...] Until Fri09/01/23 at 1829, Elodia Esteves: cabinet override, Elodia Esteves: cabinet override 0630 (Due) famotidine (PEPCID) 20 MG/2ML injection (COMPLETED) 1 dose, Starting on Fri09/01/23 at 0706, Until Fri09/01/23 at 1914, Elodia Esteves: cabinet override, Elodia Esteves: cabinet override 0708 (Given - Provid er: Elodia Esteves RN) sevoflurane inhalation liquid Starting on Fri09/01/23 [...] BE BASED ON THE PRIMARY CLINICAL RECORDS. [employer] provides no warranty or guarantee of the accuracy or completeness of information in this document.
== END 2023-11-05 20:43 | disposition home or self-care (01) ==
LOC: SLEEP 20:58
PROVIDERS: PCP Family Medicine; Visit Provider Family Medicine
DX: G47.33 Obstructive sleep apnea (adult) (pediatric) (principal)
CPT/HCPCS: 95811

== ENCOUNTER 2024-08-14 07:21 | Outpatient (OUT) | payer OTHER, SELFPAY ==
--- OUTSIDE RECORDS SUMMARY | 2024-07-05 04:38 | XMS_ITS ---
Author Organization [facility] [place] Address [address] [place] [address] Care Team Providers Care Him Specialist Name Role Phone Fausto Artur Primary Care Provider Medications Medication SIG (Take, Route, Fr equency, Duration) Notes Start Date End Date Status Azithromycin 250 MG 2 tabs today then 1 tab Orally daily for 5 days 07/05/2024 Active Encounters Encounter Location Date Provider Diagnosis [facility] [address] [place] [address] 07/05/2024 Artur Lambert Plan Of Treatment Medication Medication Name Sig Start Date Stop Date Notes Azithromycin 250 MG 2 tabs today then 1 tab Orally daily for 5 days 07/05/2024 Progress Notes * Cheryl BARKERDOB: 4 (58 yo F)Acc No.[id number]:07/05/2024 Patient: Cheyrl SORTO :1965 A ge:58 Y S ex:Female Address:[address] [place] [address], [phone] * Refills Start Azithromycin Tablet, 250 MG, Orally, 6, 2 tabs today then 1 tab, daily, 5 days, Refills=0 * true * Date: Generated for Printi ng/Faxing/eTransmitting on: 0 08/14/2024 07:25 AM EDT
--- OUTSIDE RECORDS SUMMARY | 2024-08-02 11:03 | XMS_ITS ---
Author Organization [facility] [employer] Address [address] [place] [address] Care Team Providers Care Dock Loader Name Role Phone Artur Lambert Primary Care Provider Medications Medication SIG (Take, Route, Fr equency, Duration) Notes Start Date End Date Status Meloxicam 15 MG 1 tablet Orally Once a day for 30 days 08/02/2024 Active Encounters Encounter Location Date Provider Diagnosis [facility] [address] [place] [address] 08/02/2024 Artur Lambert Plan Of Treatment Medication Medication Name Sig Start Date Stop Date Notes Meloxicam 15 MG 1 tablet Orally Once a day for 30 days 02/2025 Progress Notes * Cheryl BARKERDOB: 4 (59 yo F)Acc No.[id number]:08/02/2024 Patient: Cheryl SORTO :1965 A ge:59 Y S ex:Female Address:[address] [place] [address], [phone] * Refills Start Meloxicam Tablet, 15 MG, Orally, 30, 1 tablet, Once a day, 30 days, Refills=11 * true * Date: Generated for Boboi ng/Fahazelg/eTransmitting on: 0 08/14/2024 07:25 AM EDT
--- OUTSIDE RECORDS SUMMARY | 2024-08-06 06:30 | XMS_ITS ---
Author Organization [facility] in [place] Address [address] [place] [address] Care Team Providers Care Endo Tech Name Role Phone Fausto Artur Primary Care Provider [phone] Allergies Allergen (clinical drug ingredient) Drug/Non Drug Allergy documented on EMR Reaction Allergy Type Onset Date Status ciprofloxacin Cipro joint pain Drug Allergy 05/08/2023 A ctive nitrofurantoin, macrocrystals / nitrofurantoin, monohydrate Macrobid rash Drug Allergy Active pravastatin Pravachol muscle aching Drug Allergy A ctive amoxicillin Amoxicillin hives Drug Allergy Act nhi atorvastatin Atorvastatin muscle acihng Drug Allergy Active codeine Codeine unknown Drug Allergy Active oxycodone Oxycodone vomiting Drug Allergy Active Penicillin childhood allergy Drug Allergy Active Reason For Referral Diagnosis 1 Lumbar radiculopathy (M54.16) Referral Organization [facility] ([place], [place]) Medicine Referring Provider First Name Artur Referring Provider Last Name Fausto Referring Provider Speciality Family Med icine Referred Provider [facility], [place] Referred Provider Specialty Physical The rapist Referral Priority Routine REASON FOR VISIT Presents to office alone for chronic low back pain. Meloxicam is helping Medications Medication SIG (Take, Route, Fr equency, Duration) Notes Start Date End Date Status tiZANidine HCl 2 MG 2 tabs Orally qhs for 30 days 08/06/2024 Active Meloxicam 15 MG 1 tablet Orally Once a day for 30 days 08/02/2024 Active Social History Tobacco Use: Social History Observation Description Date Details (start date - stop date) Never Smoker NA - NA Tobacco Control (Standard) Question Answer Notes Tobacco use: Nonsmoker AUDIT-C (Standard) Question Answer Notes Did you have a drink contain ing alcohol in the past year? Yes How often did you have six o r more drinks on one occasion in the past year? Never (0 point) How many drinks did you have on a typical day when you were drinking in the past year? 1 or 2 drinks (0 point) How often did you have a dri nk containing alcohol in the past year? 2 to 4 times a month (2 points) Points 2 Interpretation Negative Problems Problem Type SNOMED Code ICD Code Onset Dates Problem Status W/U Status Risk Notes Problem Lumbar radiculopathy (118883560) Lumbar radiculopathy (M54.16) Active confirmed Vital Signs Blood pressure systolic 154 mm Hg 08/07/19 25 Blood pressure diastolic 90 mm Hg 025 Height 64 in 08/06/2024 Weight 180.2 lbs 08/06/2024 BMI 30.93 kg/m2 08/06/2024 Encounters Encounter Location Date Provider Diagnosis [facility] [address] [place] [address] 08/06/2024 Artur Lambert Lumbar radiculopathy M54.16 Assessments Encounter Date Diagnosis (ICD Code) Assessment Notes Treatment Notes Treatment Clinical Notes Section Notes 08/06/2024 Lumbar radiculopathy (ICD-10 - M54.16) 08/06/2024 Other Recommended to rest and use a heating pad on the area. Take NSAIDs for pain as needed Plan Of Treatment Medication Medication Name Sig Start Date Stop Date Notes tiZANidine HCl 2 MG 2 tabs Orally qhs for 30 days 08/07/19 25 Treatment Notes Assessment Notes Other Recommended to rest and use a heating pad on the area. Take NSAIDs for pain as needed Pending Test Test Name Order Date XR LSPINE MIN 4 VIEWS 08/06/2024 Referrals Referral Date Details 08/06/2024 08/06/2024, [facility] Progress Notes * KRUNAL Ino: 4 (59 yo F)Acc No.[id number]:08/06/2024 Progress Note Patient: Cheryl SORTO Provider: Carlos Lambert ([facility]), MD NAVA:1965 A ge:59 Y S ex:Female Date:08/06/2024 Address:[address] [place] [address] , [id number] Check In:10:27 AM ESTCheck O ut:11:36 AM EST Subjective: * Chief Complaints: * P resents to office alone for chronic low back pain. Meloxicam is helping * HPI: G eneral: Back pain - no injury - doing her kegels - seems to stir up back pain into knees on a daily basis tried home PT - doiung INversion table meloxicam helps some. B ack Pain: The patient complains of -. The symptoms have been present for 1-2 days. The patient believes symptoms are injury related No. The symptoms are mild. Symptomatic treatment has included heating pad, stretching. Associated symptoms include None. * ROS: G eneral/Constitutional: Lightheadedness d enies. C hange in appetite d enies. W eight Change d enies. C ardiovascular: Irregular heartbeat d enies. S welling in hands/feet?denies. R espiratory: Shortness of breath d enies. S hortness of breath with exertion d enies. W heezing d enies. M usculoskeletal: Comments S [facility] for details. N eurologic: Dizziness d enies. F ainting d enies. H eadache?denies. 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 Modified On:04/28/2023U Status:confirmed K44.9 Hiatal hernia Modified On:07/18/2023U Status:confirmed R06.83 Snoring Modified On:04/26/2024W/U Status:confirmed G43.909 Migraine Modified On:07/18/2023/U Status:confirmed Q27.30 AVM (arteriovenous m alformation) Modified On:07/18/2023/U Status:confirmed N81.4 Uterine prolapse Modified On:09/02/2023/U Status:confirmed M54.16 Lumbar radiculopathy Modified On:08/06/2024/U Status:confirmed * Medical History: * Surgical History: C ystoscopy 07/2022Lap Hysterectomy, Bilat [place]o-oophorectomy, Cystoscopy ystocele repair with axis graft 09/01/23cholecystectomy tonsillectomy * Hospitalization/Major Diagno stic Procedure: * Family History: F ather: alive, diagnosed with Diabetes mellitus without mention of complication, type II or unspecified type, not stated as uncontrolled, Unspecified essential hypertension, Unspecified heart disease, Chronic kidney disease, unspecified. M other: alive, Cardiac stenting, diagnosed with Diabetes mellitus without mention of complication, type II or unspecified type, not stated as uncontrolled, Unspecified essential hypertension, Unspecified heart disease. B rother(s): alive, arthritis, arrhythmia, crohns disease. S on(s): alive. D chaner(s): alive, Reflux Obstructive Apnea,. 2 brother(s) . 1 son(s) , 1 daughter(s) . . * Social History: T obacco Use: T obacco Control (Standard) T obacco use: N onsmoker D rug/Alcohol: A APPLE-C (Standard) D id you have a drink containing alcohol in the past year? Y es H ow often did you have six or more drinks on one occasion in the past year? N ever (0 point) H ow many drinks did you have on a typical day when you were drinking in the past year? 1 or 2 drinks (0 point) H ow often did you have a drink containing alcohol in the past year? 2 to 4 times a month (2 points) P oints 2 I nterpretation N egative * Medications: T akingMeloxicam 15 MG Tablet 1 tablet Orally Once a day Taking Meloxicam 15 MG Tablet 1 tablet Orally Once a day DiscontinuedAspirin Adult Low Dose(Aspirin) 81 MG Tablet Delayed Release 1 tablet Orally Once a day Azithromycin 250 MG Tablet 2 tabs today then 1 tab Orally daily Bactrim DS(Sulfamethoxazole-Trimethoprim) 800-160 MG Tablet 1 tablet Orally bid Benzonatate 200 MG Capsule 1 capsule Orally Three times a day Claritin-D 12 Hour Protonix(Pantoprazole Sodium) 40 MG Tablet Delayed Release 1 tablet Orally Every Evening Pyridium(Phenazopyridine HCl) 200 MG Tablet 1 tablet after meals Orally Three times a day Tamiflu(Oseltamivir Phosphate) 75 MG Capsule 1 capsule Orally Twice a day Temazepam 7.5 MG Capsule 1 capsule at bedtime as needed Orally Once a day F41.9Vitamin B Complex - Tablet as directed Orally Vitamin D 50 MCG (1999 UT) Tablet 1 tablet Orally Once a day Medication List reviewed and reconciled with the patientDiscontinued Aspirin Adult Low Dose(Aspirin) 81 MG Tablet Delayed Release 1 tablet Orally Once a day Discontinued Azithromycin 250 MG Tablet 2 tabs today then 1 tab Orally daily Discontinued Bactrim DS(Sulfamethoxazole- Trimethoprim) 800-160 MG Tablet 1 tablet Orally bid Discontinued Benzonatate 200 MG Capsule 1 capsule Orally Three times a day Discontinued Claritin-D 12 Hour Discontinued Protonix(Pantoprazole Sodium) 40 MG Tablet Delayed Release 1 tablet Orally Every Evening Discontinued Pyridium(Phenazopyridine HCl) 200 MG Tablet 1 tablet after meals Orally Three times a day Discontinued Tamiflu(Oseltamivir Phosphate) 75 MG Capsule 1 capsule Orally Twice a day Discontinued Temazepam 7.5 MG Capsule 1 capsule at bedtime as needed Orally Once a day F41.9Discontinued Vitamin B Complex - Tablet as directed Orally Discontinued Vitamin D 50 MCG (1999 UT) Tablet 1 tablet Orally Once a day Medication List reviewed and reconciled with the patient * Allergies: C odeine: unknown - AllergyOxycodone: vomiting - AllergyPenicillin: childhood allergy - AllergyAtorvastatin: muscle acihng - AllergyPravachol: muscle aching - AllergyMacrobid: rash - AllergyAmoxicillin: hives - AllergyCipro: joint pain - Side Effects - Criticality Low - Onset Date 05/08/2023no[Allergies Verified] Objective: * Vitals: W t:180.2lbs, Ht: 64 in, BP:154/90mm Hg, BMI:30.93Index, Wt-k.74 kg. * Examination: G eneral Examination: GENERAL APPEARANCE: i n no acute distress, well developed, well nourished. LUNGS: clear to auscultation bilaterally. CARDIO: S1, S2 normal, no murmurs, rubs, gallops. MUSCULOSKELETAL: P oor rom in back duet o pain. EXTREMITIES: no clubbing, cyanosis, or edema. NEUROLOGIC: alert, oriented to time, place, & person.? Assessment: * Assessment: 1. L umbar radiculopathy - M54.16 (Primary) Plan: * Treatment: 2. O thers Notes: Recommended to rest and use a heating pad on the area. Take NSAIDs for pain as needed ? * Procedure Codes: * Preventive Medicine: Screenings/Counseling: B [place] ACTION PLAN Above Normal BMI Follow-up D ietary management education, guidance, and counseling See treatment section of progress note for complete details of management plan. * * Sign off status: Completed Visit Status: C HK (Check Out) true * Provider: Carlos Lambert ([facility])MD Date: 0 08/06/2024 Generated for Printi ng/Fahazelg/eTransmitting on: 08/14/2024 07:25 AM EDT History and Physical Notes * HPI (History of Present Illness) Category Sub-Category Detail Notes Category Not es General Back pain - no injury - doing her kegels - seems to stir up back pain into knees on a daily basis tried home PT - doiung INversion table meloxicam helps some Examination Category Sub-Category Detail Notes Category Not es General Examination GENERAL APPEARANCE: in no ac [place] distress, well developed, well nourished CARDIO: S1, S2 normal, no mu rmurs, rubs, gallops LUNGS: clear to auscultatio n bilaterally NEUROLOGIC: alert, oriented to t akhil, place, & person EXTREMITIES: no clubbing, cyanosi s, or edema MUSCULOSKELETAL: Poor rom in back due t o pain Consultation Request Notes Referral Date Referring Provider Referred Provider Not es 08/06/2024 Artur [facility]
--- OUTSIDE RECORDS SUMMARY | 2024-08-12 05:25 | XMS_ITS ---
Author Name Auto Generated Organization [facility] Care Team Providers Care Finance Intern Name Role Phone VAMSI YOO Attending Unavailable [...] (routine) without abnormal findings / Z01.419(ICD-10) NA [facility] 05/24/2024 Admitting diagnosis Encounter for screening for human papillomavirus (HPV) / Z11.51(ICD-10) NA [facility] 11/17/2023 Unknown Unspecified lump in the left breast, lower inner quadrant / N63.24(ICD-10) Sera Lambert [facility] 09/01/2023 Unknown Other specified postprocedural states / Z98.890(ICD-10) PETE ROD [facility] 09/01/2023 Unknown Cystocele, unspecified / N81.10(ICD-10) PETE ROD [facility] 08/21/2023 Admitting Diagnosis Body mass index (BMI) 29.0-29.9, adult / Z68.29(ICD-10) [facility] 06/04/2023 Admitting Diagnosis Takotsubo syndrome / I51.81(ICD-10) [facility] 06/04/2023 Admitting Diagnosis Mixed hyperlipidemia / E78.2(ICD-10) [facility] PROCEDURES No Procedure Records Found RESULTS US NON OB TRANSVAGINAL Observed: 025 11:33 AM Status: F Source: [facility] UTERUS REMOVED. BILATERAL OVARIES NOT VISUALIZED. NO FREE FLUID OR MASSES SEEN. UNREMARKABLE EXAM. Interpreted by: Pete Rod DO Signed by: Pete Rod DO 07/15/24 Final result CYTOLOGY REPORT Observed: 05/24/2024 12:00 AM Status: F Source: [facility] (NOTE) Path Number: [id number] DIAGNOSIS Imaged ThinPrep Pap - Vaginal (1 monolayer slide): Specimen Adequacy: Satisfactory for evaluation. Descriptive Diagnosis: Negative for intraepithelial lesion or malignancy. Comments: Specimen was screened at [facility], [address] [place] [address] Cytotech Screener: GERHARD Electronically Signed Out CRISTINA [...] or for other forensic purposes. Performed at [facility], [address] [place] [address] [id number] [phone] . 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 ANATOMIC PATHOLOGY [address] [place] [address]. [place], [place] [address] HPV DNA HIGH RISK Collected: 5 12:00 AM Status: F Source: [facility] TYPE CODE TESTS RESULT OUT OF RANGE [...] forensic purposes. Performed By: #### [facility] #### [facility] [address] [place] [address] Sleep Medicine Physician: Niall Cheng MD BREAST LT LIMITED Observed: 4 3:11 PM Status: COMPLETED Source: [facility] [place] [address] Mammography Report Signed Patient: Cheryl Hector MR#: [id number] : 1965 Acct:[id number] Age/Sex: 58 / F ADM Date: 11/17/23 Loc: [place] Room: Type: [facility] Attending Dr: Sera Lambert MD Copies to: Sera Lambert MD Ordering Provider: Sera Lambert MD Date of Service: 11/17/23 MM/MM diagnostic mammo BI w/CAD: N63.20 ([id number]) US/US breast LT limited: N63.20 CLINICAL DATA: [...] Trista Osorio M.D.11/17/2023 3:31 PM Dictation Location: [facility] Transcribed By: [facility] 11/17/23 153 Dictated By: Trista Osorio II, MD 11/17/23 1511 Signed By: <Electronically signed by Trista Osorio II, MD in OV> 11/17/23 1531 SURGICAL PATHOLOGY REPORT Observed: 08/22 8:24 AM Status: F Source: [facility] (NOTE) Path Number: [id number] -- Diagnosis -- VAGINAL MUCOSA: -SQUAMOUS MUCOSA WITH NO PATHOLOGIC DIAGNOSIS Quentin Keys D.O. Electronically Signed Out [facility]/09/03/2023 Clinical Information Pre-Op Diagnosis: CYSTOCELE, UNSPECIFIED Operative Findings: VAGINAL MUCOSA Operation Performed: CYSTOSCOPY CYSTOCELE REPAIR AXIS DERMIS CAPIO NEEDLE HEATING AND VENTILATING DRAFTER AND #4 ETHIBOND dw Source of Specimen A: VAGINAL MUCOSA Gross Description CHERYL HECTOR VAGINAL MUCOSA Received in formalin are two fragments meza, rubbery vaginal mucosa, 3.7 cm and 4.5 cm. Sectioning reveals meza, rubbery cut surfaces with no masses or lesions identified. Assorter Laundry sections 1c. tm Sarah Dorseyer/dw1:09/01/2023 Microscopic Description Microscopic examination performed. Processing Lab: [address] [address] Interpretation Performed at [address] [address] SURGICAL PATHOLOGY CONSULTATION Patient Name: CHERYL HECTOR [facility] Rec: [id number] [facility] ANATOMIC PATHOLOGY [address] [place] [address] PROGRESS Observed: 08/19/2023 10:33 AM Status: COMPLETED Source: [facility] HNO ID: [id number] Author: DEIRDRE MONTALVO MD Service: ? Author Type: Physician Type: Progress Notes Filed: 08/19/2023 10:34 Note Text: The record sent by patient's PCP is reviewed. It included the same information as provided by the patient on her portal. Deirdre Montalvo MD, MORA PROGRESS Observed: 08/15/2023 11:38 AM Status: COMPLETED Source: [facility] HNO ID: [id number] Author: DEIRDRE MONTALVO MD Service: ? Author Type: Physician Type: Progress Notes Filed: 08/15/2023 11:40 Note Text: Addendum: In a follow up Worksurfershart message, patient indicated a diagnosis of benign adrenal adenoma. A copy of the CT scan report is requested. Also, I added labs for aldosterone, renin and BMP. She has uncontrolled/untreated hypertension. Deirdre Montalvo MD, MORA PROGRESS Observed: 08/13/2023 12:53 PM Status: COMPLETED Source: [facility] HNO ID: [id number] Author: DEIRDRE MONTALVO MD Service: ? Author [...] (PREVACID) 30 mg capsule Gastric Acid Secretion Front Edger - Proton Pump Inhibitors (PPIs) loratadine-pseudoephedrine ER (CLARITIN-D 12 HOUR) 5-120 mg per tablet Take 1 tablet by mouth two times a day as needed. for allergy symptoms. 2nd Generation Antihistamine-Decongestant Combinations pantoprazole DR (PROTONIX) 40 mg tablet Gastric Acid Secretion Front Edger - Proton Pump Inhibitors (PPIs) ALLERGIES Allergen [...] CODE REACTION SEVERITY SOURCE 08/12/2024 Drug Allergy/4160 26375(SNOMED CT) Udklwnl-MCY-QeH Reductase Inhibitor/H448844179(R XNORM) Joint Pain Unknown [facility] 08/12/2024 Drug Allergy/4160 31283(SNOMED CT) codeine/J146855282(RXN ORM) Rash Unknown [facility] 08/12/2024 Drug Allergy/4160 50563(SNOMED CT) oxycodone/Q319406247(R XNORM) Vomiting Unknown [facility] 08/12/2024 Drug Allergy/4160 46499(SNOMED CT) amoxicillin/O895824472 (RXNORM) Rash Unknown [facility] 08/12/2024 Drug Allergy/4160 12381(SNOMED CT) aspirin/T109533613(RXN ORM) Vomiting Unknown [facility] 08/12/2024 Drug Allergy/4160 95173(SNOMED CT) meloxicam/X399050462(R XNORM) Nausea Unknown [facility] 08/21/2023 DRUG/3390107 03(SNOMED CT) NITROFURANTOIN MONOHYD/M-CRYST Other~Rash Med [facility] 06/04/2023 DRUG INGREDI/4195 10513(SNOMED CT) AMOXICILLIN Other [facility] 06/04/2023 DRUG INGREDI/4195 61717(SNOMED CT) ATORVASTATIN [facility] 06/04/2023 DRUG INGREDI/4195 55823(SNOMED CT) EZETIMIBE Other [facility] 06/04/2023 DRUG INGREDI/4195 61985(SNOMED CT) OXYCODONE Other [facility] 06/04/2023 DRUG INGREDI/4195 98993(SNOMED CT) PRAVASTATIN Other [facility] 06/04/2023 Drug Class/574361 003(SNOMED CT) ILYZLIQ-VDI-OZA REDUCTASE INHIBITORS Other [facility] 05/08/2023 DRUG INGREDI/4195 22757(SNOMED CT) CIPROFLOXACIN Myalgia~Rash Low [facility] 09/24/2011 DRUG INGREDI/4195 32718(SNOMED CT) AMOXICILLIN UNKNOWN [facility] 09/24/2011 DRUG INGREDI/4195 02953(SNOMED CT) CODEINE UNKNOWN [facility] 09/24/2011 DRUG/4957424 03(SNOMED CT) OXYCODONE-ASPIRIN UNKNOWN [facility] ENCOUNTERS ADMIT/DISCHARGE ACCOUNT NUMBER ADMITTING ENCOUNTER CLASS LOCATION SOURCE 08/12/2024/08/13/[id number]ik [facility] 05/24/2024/05/25/19 25 [id number] Ambulatory Building:ILL D [facility] 11/17/2023/11/17/19 24 [id number] Sera Lambert [facility] 09/01/2023/09/01/19 24 [id number] PETE ROD Ambulatory Building:PBO RRoom: ORPOOLRMBed: NONE [facility] 08/21/2023/08/21/19 24 [id number] Ambulatory Building: [id number] [facility] 08/13/2023/08/13/19 24 [id number] [facility] PAYERS ENCOUNTER GUARANTOR PAYER SUBSCRIBER SOURCE 08/12/[id number] [address]Hsh: () Primary Insurance:MMOPolicy Number: [id number] e Date:1390-12-14[id number] [place] [address]ZW: Cheryl Us SeymvikyDOB: [id number] [address]Lnx: () [facility] 08/12/2024 Secondary Insurance:Self PayPolicy Number: Effective Date:2024-08-12 [facility] SEYMOURDOB: [address] [address]Jsy: () Primary Insurance:MEDICAL MUTUALPolicy Number: [id number] e Date:2013-03-24[address] [place] [address]AV: CHERYL SMITHYMOURDOB: [id number] [place] [address]Bih: () [facility] 11/17/2023 Cheryl Us Seymour[address] [place], [place] [address]Tel: () Primary Insurance:MMOPolicy Number: [id number] e Date:9106-43-87[id number] [place] [address]FK: Cheryl Us SeymvikyDOB: [id number] [place], [place] [address]Tel: () [facility] 11/17/2023 Secondary Insurance:Self PayPolicy Number: Effective Date:2023-11-03 [facility] 09/01/2023 SEYMOURDOB: [address] [address]Otc: (HP) Primary Insurance:MEDICAL MUTUALPolicy Number: [id number] e Date:2013-03-24[address] [address]QE: CHERYL HECTORB: [id number] [address]Owm: () [facility] 08/21/2023 A RIDDHIB: [id number] [address] [address]Vwq: () Primary Insurance:MEDICAL [facility]Policy Number: [id number] e Date:2022-09-21 CHERYL HANNONB: [id number] [address]Tkd: () [facility] 08/13/2023 Primary Insurance:[facility] SUPERMED PPOPolicy Number: [id number] e Date:0548-07-08Fddd Name:Chano FERNANDEZ SERANDY: [id number] [address] [facility]
--- OUTSIDE RECORDS SUMMARY | 2024-08-14 07:25 | XMS_ITS | Clinical Summary ---
Author Organization [facility] Address [address] [place] [address] Care Team Providers Care Outpatient Surgery Rn Name Role Phone Erwin Lambert MD Primary Care Provider [phone] Allergies Active Allergy Reactions Criticality Noted Date Comments Amoxicillin Unknown 09/24/2011 Ciprofloxacin Myalgia,Rash 05/08/2023 Codeine Unknown 09/24/2011 Oxycodone-Aspirin Unknown 09/24/2011 Medications lansoprazole (PREVACID) 30 mg capsule 05/23/[address] (PROTONIX) 40 mg tablet 07/18/2023 Active loratadine-pseu doephedrine ER (CLARITIN-D 12 HOUR) 5-120 mg per tablet Take 1 tablet by mouth two times a day as needed. for allergy symptoms. 08/13/2023 Active Active Problems Problem Noted Date Diagnosed Date Prediabetes 08/13/2023 Family History Medical History Relation Comments Thyroid Father Questionable his tory Coronary Artery Disease Mother Diabetes Mother Relation Status Comments Father Mother Social History Tobacco Use Types Packs/Day Years Used Date Smoking Tobacco: Never Passive Smoke Exposure: Never Smokeless Tobacco: Never Tobacco Cessation:Counseling Given: Not Answered Alcohol Use Standard Drinks/Week Comments Yes 0 (1 standard drink = 0.6 oz pur e alcohol) Once a week or less. Area Deprivation Index Answer Date Zachariah rded National Score (1-100), lower number is lower ri sk 63 08/13/2023 State Score (1-10), lower number is lower risk 4 08/13/2023 Data from: https://www.neighborhoodatlas.medicine.[facility].edu/. 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 on file Not on file Not on file Last Filed Vital Signs Vital Sign Reading Time Taken Comments Blood Pressure 150/96 08/13/2023 12:58 PM EDT ALICIA BP Average Pulse 68 08/13/2023 12:58 PM EDT Temperature - - Respiratory Rate - - Oxygen Saturation 100% 08/13/2023 12: 58 PM EDT Inhaled Oxygen Concentration - - Weight 78.7 kg (173 lb 8 oz) 08/13/2023 12:58 PM EDT Height 162.6 cm (5' 4 ) 08/13/2023 12:5 8 PM EDT Body Mass Index 29.78 08/13/2023 12:58 PM EDT Plan of Treatment Health Maintenance Due Date Last Done Comments Anxiety Screening 07/24/1981 Depression Screening 07/24/1981 HIV Screening 07/24/1981 Hepatitis C Screening 07/24/1981 DTaP,Tdap,Td Vaccine (1 - Tdap) 07/24/1982 Cervical Cancer Screening 07/24/[address] Colonography 07/24/2008 Cologuard (FIT-DNA) 07/24/2008 Colonoscopy 07/24/2008 Colorectal Cancer Screening 07/24/2008 Fecal Occult Blood 07/24/2008 Lipid Screening 07/24/2008 Sigmoidoscopy 07/24/2008 Pneumococcal Vaccine: 50+ (1 of 1 - PCV) 07/24/2013 Shingrix Vaccine (1 of 2) 07/24/2013 Covid-19 Vaccine (4 - 2023-2 5 season) 2023 03/19/2021, 05/19/2020, 04/21/2020 Influenza Vaccine (Season Ended) 2024 01/23/2022, 01/18/2020, 12/23/2019, Additional history exists Diabetes Screening 10/25/2025 10/25/2022 RSV Vaccine (1 - 1-dose 75+ series) 07/24/2038 Insurance [employer] PPO Care Teams Outpatient Surgery Rn Relationship Specialty Start Date End Date Erwin Lambert MD [address] [place] [address] PCP - General Family Medicine 08/13/23
--- OUTSIDE RECORDS SUMMARY | 2024-08-14 07:25 | XMS_ITS | Encounter Summary ---
Author Organization [facility] Address [address] [place] [address] Phone Care Team Providers Care Personal Banking Advisor Name Role Phone Bong Alexander DO Primary Care Provider + [phone] Erwin Lambert MD Primary Care Provider + [phone] Encounter Details Date Type Department Care Team (Late st Contact Info) Description 05/17/2021 Orders Only [facility] [address] [place] [address] Conversion, Onbase Social History Tobacco Use Types Packs/Day Years Used Date Smoking Tobacco: Never Assessed Comments Unknown Sex and Gender Information Value Date Recorded Sex Assigned at Not on file Legal Sex Female 6:14 PM EST Gender Identity Not on file Sexual Orientation Not on file documented as of this encounter Plan of Treatment Upcoming Encounters Date Type Department Care Team (Late st Contact Info) Description 09/14/2024 9:20 AM EDT Office Visit [address] [place] [address] Bert Serrano MD [address] [facility] [place], [place] [id number] Scheduled Orders Name Type Priority Associated Diagnoses Orde r Schedule OUTSIDE LAB SCAN Lab Ordered: 05/17/2021 documented as of this encounter Visit Diagnoses Not on filedocumented in this encounter Care Teams Personal Banking Advisor Relationship Specialty Start Date End Date Bong Alexander DO [address] [facility] [place] [address] PCP - General 05/22/21 08/20/23 Erwin Lambert MD [address] [place] [address] PCP - General Family Medicine 08/21/23 documented as of this encounter
--- OUTSIDE RECORDS SUMMARY | 2024-08-14 07:25 | XMS_ITS | Clinical Summary ---
Author Organization [facility] Address [address] [place] [address] Care Team Providers Care Work Counselor Name Role Phone Erwin Lambert MD Primary Care Provider [phone] Allergies Active Allergy Reactions Criticality Noted Date Comments Amoxicillin Hives,Other (See Comments),Rash,Nausea And Vomiting High 09/24/2011 Aspirin Nausea And Vomiting Low 02/21/2017 Atorvastatin Other (See Comments) 06/04/2023 Ciprofloxacin Myalgia,Rash Low 05/08/2023 Codeine Hives,Swelling,Rash, Nause a And Vomiting Medium 09/24/2011 Lactose 05/24/2024 Latex Itching,Rash Medium 10/15/2022 Nitrofurantoin Other (See Comments),Myalgia,Rash Medium 08/21/2023 Joint pain Oxycodone Other (See Comments),Nausea And Vomiting Low 02/21/2017 Oxycodone-Acetaminophen Nausea And Vomiting High Oxycodone-Aspirin Nausea And Vomiting, Other (See Comments) Low 09/24/2011 Statins Myalgia,Other (See Comments) 10/15/2022 Wheat Dextrin 05/24/2024 Medications Polyethylene Glycol 3350 (MIRALAX PO) Take 17 g by mouth 3 Active ezetimibe (ZETIA) 10 MG tablet Take 1 tablet by mouth 3 Active lansoprazole (PREVACID) 30 MG delayed release capsule Take 1 capsule by mouth daily Active simethicone (MYLICON) 80 MG chewable tablet Take 1 tablet by mouth 4 times daily as needed for Flatulence 60 tablet 1 3 Active loratadine-pseu doephedrine (CLARITIN-D 12 HOUR) 5-120 MG per extended release tablet Take 1 tablet by mouth 2 times daily as needed 4 Active nitroGLYCERIN (NITROSTAT) 0.[address] 1 tablet under the tongue every 5 minutes as needed 7 Active estradiol (ESTRACE) 0.1 MG/GM vaginal cream Place 1 g vaginally Twice a Week 42.5 g 4 Active Active Problems Problem Noted Date Diagnosed Date Adrenal adenoma 09/03/2023 Anxiety 09/03/2023 Cervical disc disease 09/03/2023 Cervical dysplasia 09/03/2023 Constipation 09/03/2023 Depression 09/03/2023 Dysuria 09/03/2023 Epigastric pain 09/03/2023 Feeling of incomplete bladder emptying Generalized ischemic myocardial dysfunction 08/22 Hiatal hernia with GERD without esophagitis 08/22 Hx of myocardial infarction 09/03/2023 Microscopic hematuria 09/03/2023 Non-ST elevated myocardial infarction (non-STEMI ) 09/03/2023 Rectocele 09/03/2023 Seasonal allergies 09/03/2023 Sigmoid diverticulosis 09/03/2023 Urine frequency 09/03/2023 Weak urinary stream 09/03/2023 HPV (human papilloma virus) infection 09/03/2023 S/P anterior colporrhaphy w/ Benoit dermis, Cystoscopy 09/01/23 09/01/2023 Prediabetes 08/13/2023 Hyperlipidemia 06/04/2023 Takotsubo syndrome 06/04/2023 Uterine prolapse 10/20/2022 Cystocele with rectocele 10/20/2022 Stress incontinence of urine 10/20/2022 S/p RALH, BSO, A/P repair, Cysto, Bulkamid 10/20/2022 Resolved Problems Problem Noted Date Diagnosed Date Resolved Date Preop cardiovascular exam 08/21/2023 Encounters Date Type Department Care Team Description 07/15/2024 11:00 AM EDT Ancillary Procedure [facility] Urogynecology [facility] Pelvic Rehabilitation [address] [place] [address] Pelvic pressure in female 07/15/2024 Results Follow-Up [facility] [address] [place] [address] [address] [place] [address] Skye Coles, EMERGENCY MEDICINE SPECIALIST - LEAD WEB DEVELOPER 06/28/2024 11:[address] [facility] Urogynecology and Pelvic Rehabilitation [address] [place] [address]. [address] [place] [address] Zientek, Peg L, BRUSH HAND Urgency incontinence (Primary Dx); Scar tissue; Pelvic pain; Decreased coordination; Pelvic muscle wasting 06/15/2024 12:[address] [facility] [address] [place] [address]. [address] [place] [address] Zoë Rangel, PT Urge incontinence (Primary Dx); Scar tissue; Pelvic pain; Decreased coordination; Pelvic muscle wasting 06/03/2024 1:[address] [facility] [address] [place] [address] [address] [place] [address] Zoë Rangel, PT Urge incontinence (Primary Dx); Scar tissue; Pelvic pain; Decreased coordination; Pelvic muscle wasting 05/29/2024 Results Follow-Up [facility] [address] [place] [address] Skye Coles, EMERGENCY MEDICINE SPECIALIST - LEAD WEB DEVELOPER 05/27/2024 10:00 AM EST Office Visit [facility] [address] [place] [address] [address] [place] [address] Zoë Rangel, PT Urge incontinence (Primary Dx); Scar tissue; Pelvic pain; Decreased coordination; Pelvic muscle wasting 05/24/2024 3:00 PM EST Office Visit [facility]rogynecology [facility] Pelvic Rehabilitation [address] [place] [address] Skye Coles, EMERGENCY MEDICINE SPECIALIST - LEAD WEB DEVELOPER Well woman exam with routine gynecological exam (Primary Dx); Encounter for screening mammogram for malignant neoplasm of breast; Menopause; Special screening examination for human papillomavirus (HPV); Pelvic pressure in female 05/24/2024 5:46 AM EST - 05/24/2024 11:59 PM EST Hospital Encounter [facility] [address] [place] [address] Discharge Disposition: Home or Self Care 05/24/[address] [facility] Urogynecology [facility] Pelvic Rehabilitation [address] [place] [address] [place] [address] Tyesha Feliz LPN from Last 3 Months Immunizations Immunization Administration Dates Next Due COVID-19, MODERNA BLUE borde r, Primary or Immunocompromised, (age 12y+), IM, 100 mcg/0.5mL 03/19/2021,05/19/2020,04/21/2020 Hep B, Dialysis/Immuno, RADHA MBIVAX-HB, (age 18y+), IM, 1mL 01/21/2002 Hep B, RECOMBIVAX-HB, (age 20y+), IM, 1mL 2001 Influenza Virus Vaccine 01/18/2020 Family History Medical History Relation Name Comments Other Father Diabetes Mother Other Mother Relation Name Status Comments Brother 1 Alive Brother 2 Alive Child 1 son Alive Child 2 daughter Alive Father Alive Mother Alive Social History Tobacco Use Types Packs/Day Years Used Date Smoking Tobacco: Never Tobacco Cessation:Counseling Given: Not Answered Alcohol Use Standard Drinks/Week Comments Yes 0 (1 standard drink = 0.6 oz pur e alcohol) social-1x a week Interpersonal Safety Domain Source: IP Abuse Scr eening Answer Date Recorded Physical abuse Denies 09/01/2023 Verbal abuse Denies 09/01/2023 Emotional abuse Denies 09/01/2023 Financial abuse Denies 09/01/2023 Sexual abuse Denies 09/01/2023 Comments No Sex and Gender Information Value Date Recorded Sex Assigned at Female 06/28/2024 9:15 AM EDT Legal Sex Female 11:43 PM EST Gender Identity Not on file Sexual Orientation Not on file 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 Not on file Not on fi le Last Filed Vital Signs Vital Sign Reading Time Taken Comments Blood Pressure 143/90 05/24/2024 3:20 PM EST Pulse 70 05/24/2024 3:20 PM EST Temperature 36.7 C (98 F) 09/08/2023 9:18 AM EDT Respiratory Rate 12 09/01/2023 10:45 AM EDT Oxygen Saturation 100% 05/24/2024 3:20 PM EST Inhaled Oxygen Concentration - - Weight 78 kg (172 lb) 05/24/2024 3:20 PM EST Height 162.6 cm (5' 4 ) 09/01/2023 6:13 AM EDT Body Mass Index 29.52 09/01/2023 6:13 AM EDT Plan of Treatment Upcoming Encounters Date Type Department Care Team (Late st Contact Info) Description 08/26/2024 1:00 PM EDT Office Visit [facility] Urogynecology and Pelvic Rehabilitation [address] [place] [address] Health Maintenance Due Date Last Done Comments A1C test (Diabetic or Prediabetic) 07/24/1973 Depression Monitoring 1975 HIV screen 07/24/1978 Hepatitis C screen 07/24/1981 DTaP/Tdap/Td vaccine (1 - Tdap) 07/24/1982 Pneumococcal 50+ years Vacci ne (1 of 2 - PCV) 07/24/1982 Hepatitis B vaccine (2 of 3 - 19+ 3-dose series) 02/18/2002 01/21/2002, 01/21/2002 Breast cancer screen 2003 Lipids 2003 Colonoscopy 07/24/2008 Colorectal Cancer Screen 07/24/2008 FIT/FOBT: Average risk 07/24/2008 Fecal-DNA (Cologuard): [place] ge risk 07/24/2008 Sigmoidoscopy/CT colonography 07/24/2008 Respiratory Syncytial Virus (RSV) or age 60 yrs+ (1 - Risk 60-74 years 1-dose series) 2023 COVID-19 Vaccine (4 - 2023-2 5 season) 2023 03/19/2021, 05/19/2020, 04/21/2020 Shingles vaccine (2 of 2) 08/19/2024 06/24/2024 Flu vaccine (Season Ended) 10/22/202401/23, 01/18/2020, 12/23/2019 Pap smear 05/25/2027 05/24/2024 Cervical cancer screen 05/24/2029 HPV (without or with Pap) 05/24/2029 05/24/2024 Hepatitis A vaccine Aged Out No longe r eligible based on patient's age to complete this topic Hib vaccine Aged Out No longer eligi ble based on patient's age to complete this topic Meningococcal (ACWY) vaccine Aged Out No longer eligible based on patient's age to complete this topic Meningococcal B vaccine Aged Out No l onger eligible based on patient's age to complete this topic Polio vaccine Aged Out No longer elig ible based on patient's age to complete this topic Medical Devices Implanted Type Area Quality Control Specialist Device Identifier Shelf Expiration Date Model / Serial / Lot System Bulking Proc Bulkamid Urethral - [id number] Implanted:Qty: 1 on 10/21/2022 by Wil Kulkarni DO at [facility] N/A: Urethra [employer] 05/21/2025 [id number] / / [id number] Allograft Benoit 6cm X 8cm Tutoplast Processed Dermis - [id number] Implanted:Qty: 1 on 09/01/2023 by Wil Kulkarni DO at [facility] N/A: Pelvis [employer]OP[employer] ALEJANDRO-WD 05/22/2027 [id number] / [id number] / [id number] Procedures Procedure Name Priority Date/Time Associated Diagnosis Comments US NON OB TRANSVAGINAL Routine 11:14 AM EDT Pelvic pressure in female HUMAN PAPILLOMAVIRUS (HPV) DNA PROBE THIN PREP HIGH RISK Routine 05/24/2024 12:00 AM EST DRYING AND WINDING SUPERVISOR CYTOLOGY Routine 05/24/2024 12:00 AM EST from Last 3 Months Results * US NON OB TRANSVAGINAL (07/15/2024 11:14 AM EDT) Anatomical Region Laterality Modality Pelvis Ultrasound Narrative 07/15/2024 11:33 AM EDT UTERUS REMOVED. BILATERAL OVARIES NOT VISUALIZED. NO FREE FLUID OR MASSES SEEN. UNREMARKABLE EXAM. Skye Coles APRN [facility] US ORDERABLES Final Result * Human papillomavirus (HPV) DNA probe thin prep high risk (05/24/2024 12:00 AM EST) Specimen Description .VAGINAL SPECIMEN 05/24/2024 12:00 AM EST velingo HPV Sample .THIN PREP 05/24/2024 12:00 AM EST velingo HPV, Genotype 16 Not Detected Not Detected 05/24/2024 12:00 AM EST velingo HPV, Genotype 18 Not Detected Not Detected 05/24/2024 12:00 AM EST velingo HPV, High Risk Other Not Detected Not Detected 05/24/2024 12:00 AM EST velingo HPV, Interpretation 05/24/2024 12:00 AM EST velingo Comment: This test amplifies and detects DNA of [...] sexual abuse or for other forensic purposes. SPECIMEN FROM CERVIX OR VAGINA / Unknown 05/24/2024 Skye Coles APRN - LEAD WEB DEVELOPER HEMATOLOGY ORDERABLES Fi nal Result velingo [address] [place] [address], [facility] [phone] * DRYING AND WINDING SUPERVISOR Cytology (05/24/2024 12:00 AM EST) Cytology Report Path Number: [id number] DIAGNOSIS Imaged ThinPrep Pap - Vaginal (1 monolayer slide): Specimen Adequacy: Satisfactory for evaluation. Descriptive Diagnosis: Negative for intraepithelial lesion or malignancy. Comments: Specimen was screened at [facility], [facility] [address] [employer] Screener: CS Electronically Signed Out CRISTINA Major(ASCP) cs/05/29/2024 Procedure/Addendum HPV Procedure Report Date Ordered: 05/25/2024 [...] or for other forensic purposes. Performed at [facility], [facility] [place] [address] . Source of Specimen: A: Imaged ThinPrep Pap - Vaginal (1 monolayer slide) HPV Reflex?........... ...........HPV Regardless Clinical History Previous cervical dysplasia Hysterectomy: VAGINAL Z01.419 Routine pocket stitcher exam without abnormal findings Z11.51 Encounter for screening for HPV History of: HPV LMP: 09/02/2011 Processing Lab: [facility] [address] [place] [address] Interpretation performed at [facility], [facility], [place] [address] This Pap Test has been evaluated with the assistance of the [employer] Pap Test Imaging System. The Pap smear is a screening test primarily for squamous epithelial lesions, which is subject to both false negative and false positive results. Your patient should be reminded to consult you immediately if she experiences any suspicious signs or symptoms, regardless of her Pap smear result. GYNECOLOGIC CYTOLOGY REPORT Patient Name: CHERYL BARKER [facility] Rec: [id number] velingo [facility] ANATOMIC PATHOLOGY [address] [place] [phone] Rypple 05/24/2024 05/25/2024 7:4 8 AM EST Skye Coles EMERGENCY MEDICINE SPECIALIST - LEAD WEB DEVELOPER PATHOLOGY/CYTOLOGY ORDER MERLINE Final Result Performing Organization Address City/State/[facility] de Phone Number [employer] [address] [phone] [facility] [employer] from Last 3 Months Insurance [employer] Care Teams Work Counselor Relationship Specialty Start Date End Date Erwin Lambert MD [address] [place] [address] PCP - General Family Medicine 10/14/22
--- OUTSIDE RECORDS SUMMARY | 2024-08-14 07:25 | XMS_ITS | Clinical Summary ---
Author Organization [facility] Address [address] [place] [address] Care Team Providers Care Fuel Pilot Engineer Name Role Phone Erwin Lambert MD Primary Care Provider [phone] Social History Tobacco Use Types Packs/Day Years Used Date Smoking Tobacco: Never Assessed Comments Unknown Sex and Gender Information Value Date Recorded Sex Assigned at Not on file Legal Sex Female 11:25 PM EDT Gender Identity Not on file Sexual Orientation Not on file Last Filed Vital Signs Vital Sign Reading Time Taken Comments Blood Pressure - - Pulse - - Temperature - - Respiratory Rate - - Oxygen Saturation - - Inhaled Oxygen Concentration - - Weight 77.1 kg (170 lb) 10/22/2021 12:00 PM EDT Height 162.6 cm (5' 4 ) 10/22/2021 12:00 PM EDT Body Mass Index 29.18 10/22/2021 12:00 PM EDT Plan of Treatment Health Maintenance Due Date Last Done Comments CT Colonography 1963 Colonoscopy 1963 Colorectal Cancer Screening 1963 FIT-DNA 1963 FIT 1963 FOBT 1963 Sigmoidoscopy 1963 Pap Smear 07/24/1984 Cervical Cancer Screening 07/24/1993 HPV/Cotest 07/24/1993 Mammogram 2003 Influenza Vaccine (Season Ended) 2024 01/23/2022, 01/18/2020, 12/23/2019 Insurance [employer] Care Teams Fuel Pilot Engineer Relationship Specialty Start Date End Date Erwin Lambert MD PCP - General Family Medicine 09/18/23
--- OUTSIDE RECORDS SUMMARY | 2024-08-14 07:25 | XMS_ITS | Encounter Summary ---
Author Organization [facility] Address [address] [place] [address] Phone Care Team Providers Care Property Controller Name Role Phone Catherine Bong Salgadovictorino Primary Care Provider [phone] Erwin Lambert MD Primary Care Provider [phone] Encounter Details Date Type Department Care Team (Late Contact Info) Description 09/10/2022 Orders Only [facility] [address] [place] [address] Conversion, Onbase Social History Tobacco Use Types Packs/Day Years Used Date Smoking Tobacco: Never Assessed Comments Unknown Sex and Gender Information Value Date Recorded Sex Assigned at Not on file Legal Sex Female 6:14 PM EST Gender Identity Not on file Sexual Orientation Not on file documented as of this encounter Functional Status * Little interest or pleasure in doing things Answer Date of Assessment Author Not at all 09/12/2022 12:04 PM EDT Conversi on, [employer] Vitals documented as of this encounter Plan of Treatment Upcoming Encounters Date Type Department Care Team (Late st Contact Info) Description 09/14/2024 9:20 AM EDT Office Visit [place] [address] [place] [id number] Bert Serrano MD [address] [facility] [address] [place] [address] Scheduled Orders Name Type Priority Associated Diagnoses Orde r Schedule OUTSIDE LAB SCAN Lab Ordered: 09/10/2022 documented as of this encounter Visit Diagnoses Not on filedocumented in this encounter Care Teams Property Controller Relationship Specialty Start Date End Date Bong [place] DO [address] [facility] [place] [address] PCP - General 05/22/21 08/20/23 Erwin Lambert MD [address] [facility] [place] [address] PCP - General Family Medicine 08/21/23 documented as of this encounter
--- OUTSIDE RECORDS SUMMARY | 2024-08-14 07:26 | XMS_ITS | Patient Health Record ---
Author Organization [facility] in [place] Address [address] [place] [address] Care Team Providers Care Fuel Cell Technician Name Role Phone Kiley Lambert Primary Care Provider [phone] KILEY LAMBERTLAS Unavailable [phone] Allergies Allergen (clinical drug ingredient) Drug/Non Drug [...] Active Penicillin childhood allergy Drug Allergy Active Results Component Value Reference Range Notes Cortisol Reviewed date:08/20/2023 12:19:57 PM Interpretation: Performing Lab: Notes/Report: [facility] , Cortisol 12.9 6.2-19.4 ug/dL Technical Expert: Bob Rich PhD, Phone: [phone] collection please use: Cortisol PM: 2.3-11.9 Please Note: The reference interval and flagging for Performed at: - [facility] Shafer this test is for an AM collection. If this is a PM [address] [place], [place] [id number] Performing Lab: see note LC - [facility] LB Cortisol, Free Dialysis, LCM S Reviewed date:08/27/2023 08:28:49 AM Interpretation: Performing Lab: Notes/Report: [facility] , Cortisol, Free Dialysis, LCMS 0.760 . ug/dL Performed at: [employer] [facility] Reference Range: These tests were developed and their performance cleared or approved by the Food and Drug Administration. 4 PM 0.042 - 0.872 Technical Expert: Khanh Vickers MD, Phone: [phone] characteristics determined by [facility]. They have not been 8 AM 0.10 - 1.[address] [place] [phone] Performing Lab: see note - [facility] LB Aldosterone LCMS, Serum Reviewed date:08/22/2023 01:05:58 PM Interpretation: Performing Lab: Notes/Report: [facility] , Aldosterone LCMS, Serum 11.8 0.0-30.0 ng/dL determined by [facility]. It has not been cleared or [address], [place] [id number] Technical Expert: Yenifer Morse MD, Phone: [phone] Performed at: [facility] approved by the Food and Drug Administration. This test was developed and its performance characteristics Performing Lab: see note LC - [facility] LB MR head/brain w con Reviewed date:08/21/2023 09:52:33 PM Interpretation: Performing Lab: Notes/Report: Source Facility: [place] [address] [place] [address] Magnetic Resonance Report Signed Patient: CHERYL HECTOR MR#: [id number] : 1965 Acct:[id number] Age/Sex: 58 / F ADM Date: 08/21/23 Loc: MRI Attending Dr: Sera Lambert M.D. Ordering Physician: Sera Lambert M.D. Date of Service: 08/21/23 Procedure(s): MR head/brain w con Accession Number(s): [id number] cc: Sera Lambert M.D. 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 FINDINGS: The cerebral sulci as well as ventricular system are appropriate for age. A tubular enhancing lesion in the right frontal lobe most likely is a developmental venous anomaly is noted. No other abnormal enhancing lesion is noted. There is no intracranial mass, mass effect, midline shift, intra or extra-axial fluid collection. Normal flow-void in the intracranial vessels is noted. The visualized portions of orbits, mastoid air cells as well as paranasal sinuses are unremarkable. MR/MR head/brain w con IMPRESSION: Right frontal developmental venous anomaly. No further follow-up is recommended. Electronically authenticated by: HÉCTOR TATUM Date: 08/21/2023 19:32 Dictated By: Héctor Tatum M.D. Signed By: 08/21/231933 DD/ 31 TD/TT: [employer] Intelligence: [place] [address] Magnetic Resonance Report Signed Patient: CHRIS HECTOR MR#: [id number] : 1965 Acct:[id number] Age/Sex: 58 / F ADM Date: 08/21/23 Loc: MRI Attending Dr: Dirk Lambert M.D. Ordering Physician: Sera Lambert M.D. Date of Service: 08/21/23 Procedure(s): MR head/brain w con Accession Number(s): [id number] cc: Sera Lambert M.D. The [address] [address] Patient Name: CHERYL HECTOR MRN: [id number] date: 1965 Sex: F Assigned Patient Location: MRI Current Patient Loca tion: MRI Accession/Order Numb er: [id number] Exam Date: 08/21/2023 16:00 Report Date: 08/21/2023 19:32 At the request of: SERA LAMBERT Procedure: MR head/b rain w con MR head/brain w con, 08/21/2023 4:00 PM EDT INDICATION: Arteriov enous malformation Q27.30 COMPARISON: Prior MR I of the brain dated 08/04/2023 TECHNIQUE: Multiplan ar, multisequential MRI images of brain were obtained without and with injection of contrast. FINDINGS: The cerebral sulci a s well as ventricular system are appropriate for age. A tubular enhancing lesion in the right frontal lobe most likely is a developmental venous anomaly is noted. No other abnormal enhancing lesion is noted. There is no intracra nial mass, mass effect, midline shift, intra or extra-axial fluid collection. Normal flow-void in the intracranial vessels is noted. The visualized porti ons of orbits, mastoid air cells as well as paranasal sinuses are unremarkable. M R/MR head/brain w con IMPRESSION: Right frontal developmental venous anomaly. No further follow-up is recommended. Electronically authenticated by: HÉCTOR TATUM Date: 08/21/2023 19:32 Dictated By: Isreal Tatum M.D. Signed By: 08/21/231933 DD/ 31 TD/TT: [employer]: Surgical Pathology ([facility]) Reviewed date:10/12/2023 05:04:27 PM Interpretation: Performing Lab: Notes/Report: Pre-Op Diagnosis: CYSTOCELE, UNSPECIFIED Path Number: [id number] Interpretation Performed at [facility] 2213 fragments meza, rubbery vaginal mucosa, 3.7 cm and 4.5 cm. 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 [place], [place] [address] [facility]/09/03/2023 Patient Name: CHERYL HECTOR Microscopic examination performed. -SQUAMOUS MUCOSA WITH NO PATHOLOGIC DIAGNOSIS A: VAGINAL MUCOSA Med Rec: [id number] identified. 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 tm Sarah Short/dw1:09/01/2023 Quentin Keys D.O. Gross Description CONSULTING PATHOLOGISTS [place] Processing Lab: [facility] [address], Electronically Signed Out ANATOMIC PATHOLOGY CHERYL HECTOR, VAGINAL MUCOSA Received in formalin are two [place] [address] Source of Specimen -- Diagnosis -- Clinical Information [place] [place] [address] dw BNP Reviewed date:09/07/2023 12:30:06 PM Interpretation: Performing Lab: Notes/Report: [facility] , NT Pro B Type Natriuretic Pept 60.0 <=900.0 pg/mL Performing Lab: see note ML - [facility] LB CBC AUTO DIFF Reviewed date:09/07/2023 12:30:06 PM Interpretation: Performing Lab: Notes/Report: [facility] , White Blood Count 9.5 4.0-11.0 10 3/uL Red Blood Count 3.96 4.20-5.40 10 6/uL Hemoglobin 11.2 12.0-16.0 g/dL Hematocrit 33.8 36.0-48.0 % Mean Corpuscular Volume 85.4 81.0-99.0 fL Mean Corpuscular Hemoglobin 28.3 26.7-34.0 pg Mean Corpuscular HGB Conc 33.1 29.9-35.2 g/dL Red Cell Distribution Width 12.7 11.0-15.0 % Platelet Count 307 150-450 10 3/uL Mean Platelet Volume 9.9 9.5-13.5 fL Neutrophils Percent Auto 63.7 43.0-75.0 % Lymphocytes Percent Auto 22.3 20.5-60.0 % Monocytes Percent Auto 5.8 1.7-12.0 % Eosinophils Percent Auto 7.2 0.9-7.0 % Basophils Percent Auto 0.8 0.2-2.0 % Immature Granulocytes Pct Auto 0.2 0.0-0.5 % Neutrophils Absolute Auto 6.1 1.4-6.5 10 3/uL Lymphocytes Absolute Auto 2.1 1.2-3.8 10 3/uL Monocytes Absolute Auto 0.6 0.3-0.8 10 3/uL Eosinophils Absolute Auto 0.7 0.0-0.7 10 3/uL Basophils Absolute Auto 0.1 0.0-0.1 10 3/uL Immature Granulocytes Abs Auto 0.02 0.00-0.03 10 3/uL Performing Lab: see note ML - [facility] LB D-DIMER Reviewed date:09/07/2023 12:30:06 PM Interpretation: Performing Lab: Notes/Report: [facility] , D Dimer 0.49 <=0.59 mg/L FEU Increases in D-Dimer concentration observed with hematoma, DIC, trauma, post-surgery, diabetes, thrombolytic size, and age of the thrombus. Therefore, a thromboembolic of disorders including advanced age, , coronary hospitalization. reference range. D-Dimers may also be elevated for a variety thromboembolic events can be variable due to localization, or anticoagulant therapy, stress, and generalized disease, cancer, liver disease, infection, inflammation, event cannot be diagnosed with certainty on the basis of the Performing Lab: see note ML - [facility] LB LACTATE or LACTIC ACID Reviewed date:09/07/2023 12:30:06 PM Interpretation: Performing Lab: Notes/Report: [facility] , Lactate/Lactic Acid 1.3 0.4-2.0 mmol/L Performing Lab: see note ML - [facility] LB MAGNESIUM Reviewed date:09/07/2023 12:30:06 PM Interpretation: Performing Lab: Notes/Report: [facility] , Magnesium 2.1 1.8-2.4 mg/dL Performing Lab: see note ML - [facility] LB PROF 14(COMP METB) Reviewed date:09/07/2023 12:30:06 PM Interpretation: Performing Lab: Notes/Report: [facility] , Sodium 139 136-145 mmol/L Potassium 3.5 3.5-5.1 mmol/L Chloride 106 98-107 mmol/L Carbon Dioxide 25.4 21.0-32.0 mmol/L Anion Gap 11.1 Glucose 179 74-106 mg/dL Blood Urea Nitrogen 17.0 7.0-18.0 mg/dL Creatinine 0.80 0.55-1.02 mg/dL Estimated GFR ( Rupa >60 >=60 Estimated GFR (Non- Calista >60 >=60 BUN Creatinine Ratio 21.2 Calcium 8.6 8.5-10.1 mg/dL Bilirubin Total 0.4 0.2-1.0 mg/dL Aspartate Amino Transferase 11 15-37 U/L Alanine Aminotransferase 20 14-59 U/L Alkaline Phosphatase 76 46-116 U/L Total Protein 6.7 6.4-8.2 g/dL Albumin Level 3.6 3.4-5.0 g/dL Globulin 3.1 Albumin Globulin Ratio 1.2 Performing Lab: see note ML - [facility] TSH Reviewed date:09/07/2023 12:30:06 PM Interpretation: Performing Lab: Notes/Report: [facility] , Thyroid Stimulating Hormone 1.073 0.358-3.740 uIU/mL Performing Lab: see note ML - [facility] Prothrombin Time INR Reviewed date:09/07/2023 12:30:06 PM Interpretation: Performing Lab: Notes/Report: [facility] , Prothrombin Time 10.9 9.0-11.6 sec INR 1.03 2.0-3.0 CONDITIONS NOT LISTED BELOW 2.5-3.5 RECURRENT THROMBOSIS DESIRED INR: 2.5-3.5 FOR PROSTHETIC HEART VALVE REPLACEMENT Performing Lab: see note ML - [facility] Troponin I High Sensitivity Reviewed date:09/07/2023 12:30:06 PM Interpretation: Performing Lab: Notes/Report: [facility] , Troponin I High Sensitivity 6.0 4.0-51.3 pg/mL USED IN ISOLATION BUT SHOULD BE INTERPRETED IN CONJUNCTION 99TH PERCENTILE = 51.4 PG/ML PERCENTILE OF cTnI DISTRIBUTION IN A REFERENCE POPULATION, CUT-OFF POINTS HAVE BEEN ESTABLISHED BASED ON THE FOURTH NOTE: HIGH-SENSITIVITY TROPONIN ASSAY IS NOT INTENDED TO BE DIAGNOSIS. REFERENCE LIMIT (URL) OF TROPONIN, DEFINED THE 99TH WITH OTHER DIAGNOSTIC AND CLINICAL INFORMATION. UNIVERSAL DEFINITION OF MYOCARDIAL INFARCTION. THE UPPER HAS BEEN CONFIRMED THE DECISION THRESHOLD FOR [place] Performing Lab: see note ML - [facility] LB ECG 12 lead Reviewed date:09/07/2023 12:30:06 PM Interpretation: Performing Lab: Notes/Report: Source Facility: [facility]-[address] [place] [address] [address] [place] [id number] Electrocardiograph Report Signed Patient: CHERYL HECTOR MR#: [id number] : 1965 Acct:[id number] Age/Sex: 58 / F ADM Date: 09/06/23 Loc: ER Attending Dr: Ordering Physician: Sheron Mcpherson Date of Service: 09/06/23 Procedure(s): ECG 12 lead Accession Number(s): [id number] cc: [facility] Test Date: 2023-09-06 Pat Name: CHERYL HECTOR Department: Room: - 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 Signed By: 09/07/23 0734 DD/ 1649 TD/TT: [employer]: CBC AUTO DIFF Reviewed date:08/25/2023 02:55:05 PM Interpretation: Performing Lab: Notes/Report: [facility] , White Blood Count 6.6 4.0-11.0 10 3/uL Red Blood Count 4.24 4.20-5.40 10 6/uL Hemoglobin 11.9 12.0-16.0 g/dL Hematocrit 37.1 36.0-48.0 % Mean Corpuscular Volume 87.5 81.0-99.0 fL Mean Corpuscular Hemoglobin 28.1 26.7-34.0 pg Mean Corpuscular HGB Conc 32.1 29.9-35.2 g/dL Red Cell Distribution Width 13.3 11.0-15.0 % Platelet Count 325 150-450 10 3/uL Mean Platelet Volume 9.9 9.5-13.5 fL Neutrophils Percent Auto 58.6 43.0-75.0 % Lymphocytes Percent Auto 30.4 20.5-60.0 % Monocytes Percent Auto 6.5 1.7-12.0 % Eosinophils Percent Auto 3.2 0.9-7.0 % Basophils Percent Auto 1.1 0.2-2.0 % Immature Granulocytes Pct Auto 0.2 0.0-0.5 % Neutrophils Absolute Auto 3.9 1.4-6.5 10 3/uL Lymphocytes Absolute Auto 2.0 1.2-3.8 10 3/uL Monocytes Absolute Auto 0.4 0.3-0.8 10 3/uL Eosinophils Absolute Auto 0.2 0.0-0.7 10 3/uL Basophils Absolute Auto 0.1 0.0-0.1 10 3/uL Immature Granulocytes Abs Auto 0.01 0.00-0.03 10 3/uL Performing Lab: see note ML - [facility] LB Renin Activity, Plasma Reviewed date:08/26/2023 08:51:13 PM Interpretation: Performing Lab: Notes/Report: [facility] , Renin Activity, Plasma SEE S CANNED REPORT Performing Lab: see note - [facility] LB ACTH, Plasma Reviewed date:08/26/2023 08:51:13 PM Interpretation: Performing Lab: Notes/Report: [facility] , ACTH, Plasma 29.6 7.2-63.3 pg/mL Performed at: [facility] Technical Expert: Bob Rich PhD, Phone: [phone] 10 AM. [address] [place], [place] [id number] ACTH reference interval for samples collected between 7 and Performing Lab: see note [facility] LB PROF CHEM 8 (BAS METB) Reviewed date:08/19/2023 03:07:39 PM Interpretation: Performing Lab: Notes/Report: [facility] , Sodium 141 136-145 mmol/L Potassium 4.0 3.5-5.1 mmol/L Chloride 103 98-107 mmol/L Carbon Dioxide 29.5 21.0-32.0 mmol/L Anion Gap 12.5 Glucose 100 74-106 mg/dL Blood Urea Nitrogen 17.0 7.0-18.0 mg/dL Creatinine 0.84 0.55-1.02 mg/dL Estimated GFR ( Rupa >60 >=60 Estimated GFR (Non- Calista >60 >=60 BUN Creatinine Ratio 20.2 Calcium 9.0 8.5-10.1 mg/dL Performing Lab: see note [facility] LB XR chest 1V Reviewed date:09/07/2023 12:30:06 PM Interpretation: Performing Lab: Notes/Report: Source Facility: [place] [address] [place] [address] XRay Report Signed Patient: CHERYL HECTOR MR#: [id number] : 1965 Acct:[id number] Age/Sex: 58 / F ADM Date: 09/06/23 Loc: ER Attending Dr: Ordering Physician: Sheron Mcpherson Date of Service: 09/06/23 Procedure(s): XR chest 1V Accession Number(s): [id number] cc: Sera Lambert M.D.; Sheron Mcpherson [address] [id number] Patient Name: CHERYL HECTOR MRN: [id number] date: 1965 Sex: F Assigned Patient Location: ER Current Patient Location: ED.MAIN Accession/Order Number: [id number] Exam Date: 09/06/2023 18:12 Report Date: 09/06/2023 19:14 At the request of: SHERON MCPHERSON Procedure: XR chest 1V EXAM: XR chest 1V , 09/06/2023 HISTORY: Palpitations COMPARISON: None. TECHNIQUE: Portable AP upright x-ray of the chest. FINDINGS: Cardiac silhouette within normal limits. Mild left basal atelectasis. No focal consolidation or pulmonary edema. No hilar or mediastinal enlargement. No acute osseous findings. XR/XR chest 1V IMPRESSION: No acute cardiopulmonary findings. Electronically authenticated by: VINOD CEE Date: 09/06/2023 19:14 Dictated By: Vinod Cee M.D. Signed By: 09/06/231916 DD/ 13 TD/TT: Imagery Intelligence: [place] [address] XRay Report Signed Patient: CHRIS HECTOR MR#: [id number] : 1965 Acct:[id number] Age/Sex: 58 / F ADM Date: 09/06/23 Loc: ER Attending Dr: Ordering Physician: Sheron Mcpherson Date of Service: 09/06/23 Procedure(s): XR chest 1V Accession Number(s): [id number] cc: Sera Lambert M.D. ; Sheron Mcpherson [place] [id number] Patient Name: CHERYL HECTOR MRN: [id number] date: 1965 Sex: F Assigned Patient Location: ER Current Patient Loca tion: ED.MAIN Accession/Order Numb er: [id number] Exam Date: 09/06/2023 18:12 Report Date: 09/06/2023 19:14 At the request of: SHERON MCPHERSON Procedure: XR chest 1V EXAM: XR chest 1V , 09/06/2023 HISTORY: Palpitations COMPARISON: None. TECHNIQUE: Portable AP upright x-ray of the chest. FINDINGS: Cardiac silhouette within normal limits. Mild left basal atelectasis. No focal consolidati on or pulmonary edema. No hilar or mediastinal enlargement. No acute osseous findings. X R/XR chest 1V IMPRESSION: No acute cardiopulmo nary findings. Electronically authenticated by: VINOD CEE Date: 09/06/2023 19:14 Dictated By: Isreal Cee M.D. Signed By: 09/06/231916 DD/ 13 TD/TT: [employer]: Mammogram Reviewed date:11/18/2023 08:50:01 AM Interpretation:Negative Performing Lab: Notes/Report: Negative Reason For Referral Diagnosis 1 Lumbar radiculopathy (M54.16) Referral Organization [facility] Medicine Referring Provider First Name Kiley Referring Provider Last Name Fausto Referring Provider Speciality Family Med icine Referred Provider [facility] Referred Provider Specialty Physical The rapist Referral Priority Routine Medications Medication SIG (Take, Route, Fr equency, [...] Problem Status W/U Status Risk Notes Problem [id number] Hyperlipidemia, unspecified (E78.5) Active confirmed Problem Snoring (05293965) Snoring (R06.83) Active confirmed Problem Dysuria (19452421) Dysuria (R30.0) Active confirmed Problem Hiatal hernia (49034585) Hiatal hernia (K44.9) Active confirmed Problem Arteriovenous malformation (39408434) AVM (arteriovenous malformation) (Q27.30) Active confirmed Problem Migraine (96814390) Migraine (G43.909) Active confirmed Problem Lumbar radiculopathy (734998750) Lumbar radiculopathy (M54.16) Active confirmed Problem Diarrhea (50068936) Diarrhea (R19.7) Active confirmed Problem Well adult (940367722) Well adult (Z00.00) Active confirmed Problem Uterine prolapse (31479842) Uterine prolapse (N81.4) Active confirmed Problem Acute urinary tract infection (628337413) Acute UTI (N39.0) Active confirmed Problem 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 Vital Signs Blood pressure diastolic 90 mm Hg 08/06/2024 Height 64 in 08/06/2024 Blood pressure systolic 154 mm Hg 08/06/2024 Weight 180.2 lbs 08/06/2024 BMI 30.93 kg/m2 08/06/2024 Encounters Encounter Location Date Provider Diagnosis [facility] [address] [facility] [place] [address] 08/15/2023 SERA Y [facility] [address] [facility] [place] [address] 08/21/2023 SERA HOY [facility] [address] [facility] [place] [address] 08/21/2023 SERA HOY [facility] [address] [facility] [place] [address] 08/25/2023 SERA HOY [facility] [address] [facility] [place] [address] 08/26/2023 SERA Y [facility] [address] [place] [address] 08/27/2023 SERA HOY [facility] [address] [facility] [place] [address] 09/04/2023 SERA ALBERTOY [facility] [address] [place] [address] 09/29/2023 Kiley Hoy Hiatal hernia K44.9 [facility] [address] [facility] [place] [address] 10/15/2023 Kiley madan [facility] [address] [place] [address] 10/28/2023 Kiley Hoy Mass of breast, left N63.20 [facility] [address] [facility] [place] [address] 11/17/2023 Kiley [facility] [address] [facility] [place] [address] 01/13/2024 Kiley madan [facility] [address] [facility] [place] [address] 03/18/2024 Kiley Lambert [facility] [address] [facility] [place] [address] 03/18/2024 Kiley [facility] [address] [facility] [place] [address] 04/07/2024 Kiley madan [facility] [address] [place] [address] 07/05/2024 Kiley [facility] [employer] [facility] [employer] [address] [place] [address] 08/02/2024 Kiley [facility] [employer] [facility] [address] [facility] [place] [address] 08/06/2024 Kiley Hoy Lumbar radiculopathy M54.16 Assessments Encounter Date Diagnosis (ICD Code) Assessment Notes Treatment Notes Treatment Clinical Notes Section Notes 09/29/2023 Hiatal hernia (ICD-10 - K44.9) 10/28/2023 Mass of breast, left (ICD-10 - N63.20) 08/06/2024 Lumbar radiculopathy (ICD-10 - M54.16) 08/06/2024 Other Recommended to rest and use a heating pad on the area. Take NSAIDs for pain as needed Plan Of Treatment Pending Test Test Name Order Date CMP (COMPLETE METABOLIC PANEL) 3 UA (URINALYSIS, COMPLETE) 08/08/2022 CULTURE, STOOL 04/22/2023 REDUCING SUBSTANCE, STOOL 04/22/2023 HEMOGLOBIN A1C (GLYCO) 02/07/2023 IRON, TOTAL 02/07/2023 CBC WITH DIFF 02/07/2023 VITAMIN D, 25 LEVEL (TOTAL) 02/07/2023 XR Abdomen AP (1 view) (KUB) * MRI Brain w/o contrast 07/18/2023 Urinalysis Microscopic 04/23/2023 CALPROTECTIN STOOL 04/22/2023 URINE CULTURE 08/08/2022 Sleep study - Diagnostic Polysonogram URINE CULTURE 10/14/2022 Stool For Leukocytes 04/22/2023 URINALYSIS 10/14/2022 Insulin Level 02/07/2023 C DIFF TOX PCR STOOL 04/22/2023 C DIFF PCR - C Difficile Toxin Gene ANGELICA - LC 10/27/2022 XR Abdomen KUB 1 View 08/08/2022 US Breast Limited Left 10/28/2023 Giardia Antigen, Stool 04/22/2023 MRI Brain w/ Contrast 08/04/2023 ACTH, PLASMA 04/27/2023 CBC AUTO DIFF 08/14/2022 CULTURE URINE 08/14/2022 CULTURE URINE 10/07/2022 DHEA SERUM 04/27/2023 RACQUEL-JIMÉNEZ VIRUS (EBV) AB PROFILE 01/22 GLYCOHEMOGLOBIN A1C 08/14/2022 INSULIN 08/14/2022 IRON 08/14/2022 LIPID PROFILE 10/03/2022 PROF 14(COMP METB) 08/14/2022 THYROID PROFILE WITH TSH 08/14/2022 UA RANDOM W or MICROSCOPIC 08/14/2022 UA RANDOM W or MICROSCOPIC 10/07/2022 URINE MICROSCOPIC ONLY 08/08/2022 URINE MICROSCOPIC ONLY 10/14/2022 VIT B12 AND FOLATE 02/07/2023 MG MAMM DIAGNOSTIC 3D JOSEY CAD 10/28/2023 XR LSPINE MIN 4 VIEWS 08/06/2024 THYROID PANEL (T4/TSH/FREE T3) 3 Insurance Providers Payer Name Payer Address Payer Phone Subscriber Number Group Number Insured Name Patient Relationship to Insured Coverage Start Date Coverage End Date MMO [employer] [address] [place] [address] [id number] Cheryl Hector Self - patient is the insured 5 Medical (General) History Medical History History ICD Code Cervical disc disease M50.90 Rectocele N81.6 Seasonal allergic rhinitis J30.2 Heart attack I21.9 Surgical History Surgery Date(Month/Year) Cystoscopy 07/2022 Lap Hysterectomy, Bilat Salppingo-oophor ectomy, Cystoscopy 09/2022 cystocele repair with axis graft 09/01/23 cholecystectomy tonsillectomy
--- OUTSIDE RECORDS SUMMARY | 2024-08-14 07:26 | XMS_ITS | Clinical Summary ---
Author Organization [facility] Address [address] [place] [address] Phone Care Team Providers Care Subassembly Assembler Name Role Phone Erwin Lambert MD Primary Care Provider [phone] Allergies Active Allergy Reactions Criticality Noted Date Comments Amoxicillin Other 06/04/2023 Atorvastatin Other 06/04/2023 Ciprofloxacin Myalgia,Rash Low 05/08/2023 Ezetimibe Other 06/04/2023 Nitrofurantoin Monohyd/M-Cryst Other,Rash Medium 08/20 Oxycodone Other 06/04/2023 Pravastatin Other 06/04/2023 Rbyuiet-Hrk-Ijd Reductase Inhibitors Other 06/04/2023 Medications aspirin 81 mg EC tablet Take 1 tablet (81 mg) by mouth once daily. Active ezetimibe (Zetia) 10 mg tablet Take 1 tablet (10 mg) by mouth once daily at bedtime. Active lansoprazole (Prevacid) [address] capsule 1 capsule (30 mg) once daily. 05/23/2023 Active loratadine-pseu doephedrine (Claritin-D 12 Hour) 5-120 mg 12 hr tablet Take 1 tablet by mouth every 12 hours if needed. 08/13/2023 Active Active Problems Problem Noted Date Diagnosed Date BMI 29.0-29.9,adult 08/21/2023 Preop cardiovascular exam 08/21/2023 Hyperlipidemia 06/04/2023 Takotsubo syndrome 06/04/2023 Immunizations Immunization Administration Dates Next Due Hepatitis B vaccine, adult *Check Product/Dose* 01/21/2002 Influenza, Unspecified 01/18/2020 Influenza, seasonal, injectable 01/23/2022,12/22 Family History Medical History Relation Name Comments Diabetes Father Hypertension Father Diabetes Mother Heart disease Mother Relation Name Status Comments Father Mother Social History Tobacco Use Types Packs/Day Years Used Date Smoking Tobacco: Never Smokeless Tobacco: Never Tobacco Cessation:Counseling Given: Not Answered Alcohol Use Standard Drinks/Week Comments Yes 1 (1 standard drink = 0.6 oz pur e alcohol) Comments Unknown Sex and Gender Information Value Date Recorded Sex Assigned at Not on file Legal Sex Female 6:14 PM EST Gender Identity Not on file Sexual Orientation Not on file Last Filed Vital Signs Vital Sign Reading Time Taken Comments Blood Pressure 126/88 08/21/2023 9:30 AM EDT Pulse 74 08/21/2023 9:30 AM EDT Temperature - - Respiratory Rate - - Oxygen Saturation - - Inhaled Oxygen Concentration - - Weight 78.9 kg (174 lb) 08/21/2023 9:30 AM EDT Height 162.6 cm (5' 4 ) 08/21/2023 9:30 AM EDT Body Mass Index 29.87 08/21/2023 9:30 AM EDT Plan of Treatment Upcoming Encounters Date Type Department Care Team (Late st Contact Info) Description 09/14/2024 9:20 AM EDT Office Visit [address] [place] [address] Bert Serrano MD [address] [facility] [place] [address] Health Maintenance Due Date Last Done Comments CT Colonography 1965 FIT-DNA (Cologuard) 1965 FIT 1965 HIV Screening 1965 Lipid Panel 1965 Sigmoidoscopy 1965 Yearly Adult Physical 1965 MMR Vaccines (1 of 1 - Standard series) 07/24/1964 Diabetes Screening 07/24/1981 Hepatitis C Screening 07/24/1981 Cervical Cancer Screening 07/24/1984 HPV/Cotest 07/24/1984 Pap Smear 07/24/1984 DTaP/Tdap/Td Vaccines (1 - Tdap) 07/24/1985 Hepatitis B Vaccines (2 of 3 - 19+ 3-dose series) 02/18/2002 01/21/2002 Mammogram 2003 Pneumococcal Vaccine (1 of 1 - PCV) 07/24/2013 Zoster Vaccines (1 of 2) 07/24/2013 RSV High Risk: (Elderly (60+) or Population) (1 - Risk 60-74 years 1-dose series) 2023 COVID-19 Vaccine ( season) 2023 03/19/2021, 05/19/2020, 04/21/2020 Influenza Vaccine (Season Ended) 2024 01/23/2022, 01/18/2020, 12/23/2019, Additional history exists Colonoscopy 05/29/2032 05/29/2022 Colorectal Cancer Screening 05/29/2032 HIB Vaccines Aged Out No longer eligi ble based on patient's age to complete this topic HPV Vaccines Aged Out No longer eligi ble based on patient's age to complete this topic Hepatitis A Vaccines Aged Out No long er eligible based on patient's age to complete this topic IPV Vaccines Aged Out No longer eligi ble based on patient's age to complete this topic Meningococcal Vaccine Aged Out No sanjay cory eligible based on patient's age to complete this topic Rotavirus Vaccines Aged Out No longer eligible based on patient's age to complete this topic Insurance [employer] Care Teams Subassembly Assembler Relationship Specialty Start Date End Date Erwin Lambert MD [address] [place] [address] PCP - General Family Medicine 08/21/23
--- NOTE | 2024-08-14 08:02 | XR_ITS ---
The [address] [address] Patient Name: REBECCA HECTOR MRN: [id number] date: 1965 Sex: F Assigned Patient Location: [facility] Current Patient Location: [facility] Accession/Order Number: [id number] Exam Date: 08/14/2024 12:42 Report Date: 08/14/2024 12:44 At the request of: SERA ARCINIEGA MD Procedure: XR lumbar spine min 4V XR lumbar spine min 4V 08/14/2024 8:21 AM SIGNS AND SYMPTOMS: Chronic low back pain radiating into hips PROTOCOLS: Frontal, lateral, and oblique radiographs of the lumbar spine COMPARISON: None FINDINGS: Facet hypertrophy contributes to 1 cm of anterolisthesis of L4 upon L5. There is mild disc height loss at L4-5 with moderate disc height loss at L5-S1. There is minimal disc height loss with anterior ossification formation at L1-L2 and L2-L3.. There is no fracture or destructive lesion. Mild degenerative changes are noted in the sacroiliac joints. Surgical clips are noted in the right upper quadrant consistent with prior cholecystectomy. XR/XR lumbar spine min 4V IMPRESSION: No acute bony injury. Facet hypertrophy contributes to 1 cm of anterolisthesis of L4 upon L5. Disc degenerative changes are present, greatest at L5-S1. Impression dictated by: Kunal Osorio M.D. 08/14/2024 12:44 PM Dictation Location: [place] [address] Electronically authenticated by: [id number] Y Date: 08/14/2024 12:44
[2024-08-14 09:47] LABS: Estimated Average Glucose 128 mg/dL; Glycohemoglobin A1C 6.1 % (4.5-6.2)
[2024-08-17 13:08] LABS: Insulin 8.8 uIU/mL (2.6-24.9)
== END 2024-08-14 07:22 | disposition home or self-care (01) ==
PROVIDERS: PCP Family Medicine; Visit Provider Family Medicine
DX: M54.16 Radiculopathy, lumbar region (principal); R53.83 Other fatigue; R73.9 Hyperglycemia, unspecified; M51.369 Other intervertebral disc degeneration, lumbar region without mention of lumbar back pain or lower extremity pain; M43.16 Spondylolisthesis, lumbar region
CPT/HCPCS: 36415; 72110; 82533; 83036; 83525

== ENCOUNTER 2024-08-14 07:26 | Outpatient (OUT) | payer OTHER, SELFPAY ==
--- OUTSIDE RECORDS SUMMARY | 2024-08-12 05:25 | XMS_ITS ---
Author Name Auto Generated Organization OHIP Care Team Providers Care Homemaking Rehabilitation Consultant Name Role Phone VAMSI YOO Attending Unavailable SERA LAMBERT Primary Care Unavailable SERA LAMBERT Primary Care Unavailable PETE ROD Attending Unavailable PETE ROD Admitting Unavailable SERA LAMBERT Primary Care Unavailable RAIZA OLIVER Referring Unavailable SERA LAMBERT Primary Care Unavailable DEIRDRE MONTALVO Attending Unavailable Buzz Naik Admitting Unavailable Sera Lambert Primary Care Unavailable Buzz Naik Attending Unavailable Sera Lambert Attending Unavailable Sera Lambert Primary Care Unavailable Sera Lambert Admitting Unavailable PROBLEMS DATE TYPE CONDITION / CODE ATTENDING STATUS [facility] 05/24/2024 Admitting diagnosis Encounter for gynecological examination (general) (routine) without abnormal findings / Z01.419(ICD-10) NA [facility] 05/24/2024 Admitting diagnosis Encounter for screening for human papillomavirus (HPV) / Z11.51(ICD-10) NA [facility] 11/17/2023 Unknown Unspecified lump in the left breast, lower inner quadrant / N63.24(ICD-10) Sera Lambert [facility] 09/01/2023 Unknown Other specified postprocedural states / Z98.890(ICD-10) PETE ROD [facility] 09/01/2023 Unknown Cystocele, unspecified / N81.10(ICD-10) PETE ROD [facility] 08/21/2023 Admitting Diagnosis Body mass index (BMI) 29.0-29.9, adult / Z68.29(ICD-10) [facility] 06/04/2023 Admitting Diagnosis Takotsubo syndrome / I51.81(ICD-10) [facility] 06/04/2023 Admitting Diagnosis Mixed hyperlipidemia / E78.2(ICD-10) [facility] PROCEDURES No Procedure Records Found RESULTS US NON OB TRANSVAGINAL Observed: 025 11:33 AM Status: F Source: [facility] UTERUS REMOVED. BILATERAL OVARIES NOT VISUALIZED. NO FREE FLUID OR MASSES SEEN. UNREMARKABLE EXAM. Interpreted by: Pete Rod DO Signed by: Pete Rod DO 07/15/24 Final result CYTOLOGY REPORT Observed: 05/24/2024 12:00 AM Status: F Source: [facility] (NOTE) Path Number: [id number] DIAGNOSIS Imaged ThinPrep Pap - Vaginal (1 monolayer slide): Specimen Adequacy: Satisfactory for evaluation. Descriptive Diagnosis: Negative for intraepithelial lesion or malignancy. Comments: Specimen was screened at [facility], [address] [place] [address] [employer] Screener: GERHARD Electronically Signed Out CRISTINA Major(ASCP) gerhard/05/29/2024 Procedure/Addendum HPV Procedure Report Date Ordered: 05/25/2024 Status: Signed Out Date Complete: 05/26/2024 By: System Interface Date Reported: 05/26/2024 Sample: HPV Type 16 Result: Not Detected Ref Range: Not Detected Sample: HPV Type 18 Result: Not Detected Ref Range: Not Detected Sample: Other High Risk HPV Result: Not Detected Ref Range: Not Detected Sample: HPV Interp Result: Ref Range: This test amplifies and detects DNA of 14 high-risk HPV types associated with cervical cancer and its precursor lesions (HPV types 16,18, 31, 33, 35, 39, 45, 51, 52, 56, 58, 59, 66, and 68). Sensitivity may be affected by specimen collection methods, stage of infection, and the presence of interfering substances. Results should be interpreted in conjunction with other available laboratory and clinical data. A negative high-risk HPV result does not exclude the possibility of future cytologic HSIL or underlying CIN2-3 or cancer. This test is intended for medical purposes only and is not valid for the evaluation of suspected sexual abuse or for other forensic purposes. Performed at [facility], [address] [place] [address] [id number] 012.066 . 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 The Pap smear is a screening test primarily for squamous epithelial lesions, which is subject to both false negative and false positive results. Your patient should be reminded to consult you immediately if she experiences any suspicious signs or symptoms, regardless of her Pap smear result. GYNECOLOGIC CYTOLOGY REPORT Patient Name: CHERYL HECTOR [facility] Rec: [id number] [facility] ANATOMIC PATHOLOGY [address] [place] [address]. [place], [place] [address] HPV DNA HIGH RISK Collected: 5 12:00 AM Status: F Source: [facility] TYPE CODE TESTS RESULT OUT OF RANGE REFERENCE UNITS LAB [facility](LOINC) Source .VAGINAL SPECIMEN LAB HSAMPH(LOINC) HPV Sample .THIN PREP LAB HPV16(LOINC) HPV Type 16 Not Detected NOTDET LAB HPV18(LOINC) HPV Type 18 Not Detected NOTDET LAB [facility](LOINC) Other High Risk HPV Not Detected NOTDET LAB HPVINT(LOINC) HPV Interp Result Comment: This test am plifies and detects DNA of 14 high-risk HPV types associated with cervical cancer and its precursor lesions (HPV types 16,18, 31, 33, 35, 39, 45, 51, 52, 56, 58, 59, 66, and 68). Sensitivity may be affected by specimen collection methods, stage of infection, and the presence of interfering substances. Results should be interpreted in conjunction with other available laboratory and clinical data. A negative high-risk HPV result does not exclude the possibility of future cytologic HSIL or underlying CIN2-3 or cancer. This test is intended for medical purposes only and is not valid for the evaluation of suspected sexual abuse or for other forensic purposes. Performed By: #### [facility] #### [employer] [address] [place] [address] Pick Pulling Machine Operator: Niall Cheng MD BREAST LT LIMITED Observed: 4 3:11 PM Status: COMPLETED Source: [facility] [place] [place] [address] Mammography Report Signed Patient: Cheryl Hector MR#: [id number] : 1965 Acct:[id number] Age/Sex: 58 / F ADM Date: 11/17/23 Loc: [place] Room: Type: [facility] Attending Dr: Sera Lambert MD Copies to: Sera Lambert MD Ordering Provider: Sera Lambert MD Date of Service: 11/17/23 MM/MM diagnostic mammo BI w/CAD: N63.20 ([id number]) US/US breast LT limited: N63.20 CLINICAL DATA: Screening for malignancy. BILATERAL SCREENING MAMMOGRAMS - FULL FIELD DIGITAL WITH TOMOSYNTHESIS AND CAD Tomosynthesis craniocaudal and mediolateral oblique views of both breasts were obtained using low- dose digital technique. Comparison is made to prior studies from 01/24/2022, 01/15/2021, 12/24/2019, and 10/19/2018. This examination was reviewed with the aid of CAD. The breast parenchyma is heterogeneously dense. Benign-appearing lymph nodes are noted along the chest wall. There are a few punctate benign-appearing calcifications. There is a similar focal asymmetry on the right which is unchanged. There are no dominant masses, typically malignant calcifications or architectural distortion. There has been no significant interval change. Limited left breast ultrasound: Grayscale and color sonographic images of the left breast were obtained at the 8:00 position 7 cm from the nipple in the region of palpable abnormality. There is dense fibroglandular tissue in this location. There is no evidence of mass, cyst, architectural distortion, or atypical calcification. MM/MM diagnostic mammo BI w/CAD IMPRESSION: NO MAMMOGRAPHIC OR SONOGRAPHIC EVIDENCE OF MALIGNANCY. ROUTINE FOLLOW-UP IS RECOMMENDED IN ONE YEAR. ADDITIONALLY CLOSE CLINICAL OBSERVATION IS RECOMMENDED WITH REPEAT IMAGING SYMPTOMS WARRANT. RESULT CODE: 2 Benign Findings(s) DENSITY CODE: 3 (approximately 51-75% glandular) FOLLOW UP: 1YR The false-negative rate of mammography is approximately 10-percent. Management of a palpable abnormality must be based on clinical grounds. Patient was entered into a reminder system with a target due date for the next mammogram. Impression dictated by: Trista Osorio M.D.11/17/2023 3:31 PM Dictation Location: [facility] Transcribed By: [facility] 11/17/23 153 Dictated By: Trista Osorio II, MD 11/17/23 1511 Signed By: <Electronically signed by Trista Osorio II, MD in [place]> 11/17/23 1531 SURGICAL PATHOLOGY REPORT Observed: 08/22 8:24 AM Status: F Source: [facility] (NOTE) Path Number: [id number] -- Diagnosis -- VAGINAL MUCOSA: -SQUAMOUS MUCOSA WITH NO PATHOLOGIC DIAGNOSIS Quentin Keys D.O. Electronically Signed Out [facility]/09/03/2023 Clinical Information Pre-Op Diagnosis: CYSTOCELE, UNSPECIFIED Operative Findings: VAGINAL MUCOSA Operation Performed: CYSTOSCOPY CYSTOCELE REPAIR AXIS DERMIS CAPIO NEEDLE HOT STONE SETTER AND #4 ETHIBOND dw Source of Specimen A: VAGINAL MUCOSA Gross Description CHERYL HECTOR VAGINAL MUCOSA Received in formalin are two fragments meza, rubbery vaginal mucosa, 3.7 cm and 4.5 cm. Sectioning reveals meza, rubbery cut surfaces with no masses or lesions identified. Orthopedic Surgeon sections 1c. tm Sarah Dorseyer/dw1:09/01/2023 Microscopic Description Microscopic examination performed. Processing Lab: [address] [address] Interpretation Performed at [address] [address] SURGICAL PATHOLOGY CONSULTATION Patient Name: CHERYL HECTOR [facility] Rec: [id number] [facility] ANATOMIC PATHOLOGY [address] [place] [address] PROGRESS Observed: 08/19/2023 10:33 AM Status: COMPLETED Source: [facility] HNO ID: [id number] Author: DEIRDRE MONTALVO MD Service: ? Author Type: Physician Type: Progress Notes Filed: 08/19/2023 10:34 Note Text: The record sent by patient's PCP is reviewed. It included the same information as provided by the patient on her portal. Deirdre Montalvo MD, MORA PROGRESS Observed: 08/15/2023 11:38 AM Status: COMPLETED Source: [facility] HNO ID: [id number] Author: DEIRDRE MONTALVO MD Service: ? Author Type: Physician Type: Progress Notes Filed: 08/15/2023 11:40 Note Text: Addendum: In a follow up [employer] message, patient indicated a diagnosis of benign adrenal adenoma. A copy of the CT scan report is requested. Also, I added labs for aldosterone, renin and BMP. She has uncontrolled/untreated hypertension. Deirdre Montalvo MD, MORA PROGRESS Observed: 08/13/2023 12:53 PM Status: COMPLETED Source: [facility] HNO ID: [id number] Author: DEIRDRE MONTALVO MD Service: ? Author [...] (PREVACID) 30 mg capsule Gastric Acid Secretion Chemist Biological - Proton Pump Inhibitors (PPIs) loratadine-pseudoephedrine ER (CLARITIN-D 12 HOUR) 5-120 mg per tablet Take 1 tablet by mouth two times a day as needed. for allergy symptoms. 2nd Generation Antihistamine-Decongestant Combinations pantoprazole DR (PROTONIX) 40 mg tablet Gastric Acid Secretion Chemist Biological - Proton Pump Inhibitors (PPIs) ALLERGIES Allergen [...] shared Medical Record. Deirdre Montalvo MD, MORA ALLERGIES DATE TYPE / CODE NAME / CODE REACTION SEVERITY SOURCE 08/12/2024 Drug Allergy/4160 78752(SNOMED CT) Ibiwbjd-AAS-DgW Reductase Inhibitor/Z419889153(R XNORM) Joint Pain Unknown [facility] 08/12/2024 Drug Allergy/4160 81605(SNOMED CT) codeine/Z891588879(RXN ORM) Rash Unknown [facility] 08/12/2024 Drug Allergy/4160 65265(SNOMED CT) oxycodone/Y681480829(R XNORM) Vomiting Unknown [facility] 08/12/2024 Drug Allergy/4160 79413(SNOMED CT) aspirin/V300589418(RXN ORM) Vomiting Unknown [facility] 08/12/2024 Drug Allergy/4160 92783(SNOMED CT) amoxicillin/U659099712 (RXNORM) Rash Unknown [facility] 08/12/2024 Drug Allergy/4160 01035(SNOMED CT) meloxicam/N826994699(R XNORM) Nausea Unknown [facility] 08/21/2023 DRUG/8087546 03(SNOMED CT) NITROFURANTOIN MONOHYD/M-CRYST Other~Rash Med [facility] 06/04/2023 DRUG INGREDI/4195 33191(SNOMED CT) AMOXICILLIN Other [facility] 06/04/2023 DRUG INGREDI/4195 79385(SNOMED CT) ATORVASTATIN [facility] 06/04/2023 DRUG INGREDI/4195 85618(SNOMED CT) EZETIMIBE Other [facility] 06/04/2023 DRUG INGREDI/4195 72362(SNOMED CT) OXYCODONE Other [facility] 06/04/2023 DRUG INGREDI/4195 49017(SNOMED CT) PRAVASTATIN Other [facility] 06/04/2023 Drug Class/964735 003(SNOMED CT) JUPMPBD-GUX-XQR REDUCTASE INHIBITORS Other [facility] 05/08/2023 DRUG INGREDI/4195 00843(SNOMED CT) CIPROFLOXACIN Myalgia~Rash Low [facility] 09/24/2011 DRUG INGREDI/4195 26197(SNOMED CT) AMOXICILLIN UNKNOWN [facility] 09/24/2011 DRUG INGREDI/4195 14915(SNOMED CT) CODEINE UNKNOWN [facility] 09/24/2011 DRUG/4586534 03(SNOMED CT) OXYCODONE-ASPIRIN UNKNOWN [facility] ENCOUNTERS ADMIT/DISCHARGE ACCOUNT NUMBER ADMITTING ENCOUNTER CLASS LOCATION SOURCE 08/12/2024/08/13/19 [id number] Buzz [facility]ik [facility] 05/24/2024/05/25/19 25 [id number] Ambulatory Building:ILL D [facility] 11/17/2023/11/17/19 24 [id number] Sera Lambert [facility] 09/01/2023/09/01/19 24 [id number] PETE ROD Ambulatory Building:PBO RRoom: ORPOOLRMBed: NONE [facility] 08/21/2023/08/21/19 24 [id number] Ambulatory Building: [id number] [facility] 08/13/2023/08/13/19 24 [id number] [facility] PAYERS ENCOUNTER GUARANTOR PAYER SUBSCRIBER SOURCE 08/12/[id number] [address]Dag: () Primary Insurance:MMOPolicy Number: [id number] e Date:1935-15-65[id number] [place] [address]RH: Cheryl Us SeymvikyDOB: [id number] [address]Wuu: () [facility] 08/12/2024 Secondary Insurance:Self PayPolicy Number: Effective Date:2024-08-12 [facility] SEYMOURDOB: [address] [address]Pgr: () Primary Insurance:MEDICAL MUTUALPolicy Number: [id number] e Date:2013-03-24[address] [place] [address]GG: CHERYL SMITHYMOURDOB: [id number] [place] [address]Kau: () [facility] 11/17/2023 Cheryl Us Seymour[address] [place], [place] [address]Tel: () Primary Insurance:MMOPolicy Number: [id number] e Date:9662-14-41[id number] [place] [address]HY: Cheryl Us SeymvikyDOB: [id number] [place], [place] [address]Tel: () [facility] 11/17/2023 Secondary Insurance:Self PayPolicy Number: Effective Date:2023-11-03 [facility] SEYMOURDOB: [address] [address]Myi: (HP) Primary Insurance:MEDICAL MUTUALPolicy Number: [id number] e Date:2013-03-24[address] [address]RD: CHERYL HECTORB: [id number] [address]Bvy: () [facility] 08/21/2023 A RIDDHIB: [id number] [address] [address]Gtq: () Primary Insurance:[facility]ICAL [facility]ENTERPolicy Number: [id number] e Date:2022-09-21 CHERYL HANNONB: [id number] [address]Aty: () [facility] 08/13/2023 Primary Insurance:[facility] PPOPolicy Number: [id number] e Date:6675-59-59Gvau Name:Chano FERNANDEZ SERANDY: [id number] [address] [facility]
[2024-08-14 09:18] LABS: Chol HDL Ratio 2.9; Cholesterol 209 mg/dL (<=200); HDL Cholesterol 73 mg/dL (40-60); Triglycerides 52 mg/dL (<=150); VLDL CHOLESTEROL 10.4 mg/dL
== END 2024-08-14 07:27 | disposition home or self-care (01) ==
LOC: LAB 07:27
PROVIDERS: PCP Family Medicine; Visit Provider Internal Medicine Cardiovascular Disease
DX: M54.16 Radiculopathy, lumbar region (principal); R53.83 Other fatigue; R73.9 Hyperglycemia, unspecified; M51.369 Other intervertebral disc degeneration, lumbar region without mention of lumbar back pain or lower extremity pain; M43.16 Spondylolisthesis, lumbar region; E78.2 Mixed hyperlipidemia
CPT/HCPCS: 36415; 72110; 80061; 82533; 83036; 83525

== ENCOUNTER 2025-01-19 15:33 | Outpatient (OUT) | payer OTHER, SELFPAY ==
--- OUTSIDE RECORDS SUMMARY | 2025-01-19 15:36 | XMS_ITS | Patient Health Record ---
Author Organization The [facility] Address [address] [place] [address] Care Team Providers Care Sap Administrator Name Role Phone Artur Arciniega Primary Care Provider [phone] Allergies Allergen (clinical drug ingredient) Drug/Non Drug Allergy documented on EMR Reaction Allergy Type Onset Date Status ciprofloxacin Cipro joint pain Drug Allergy 05/08/2023 A ctive nitrofurantoin, macrocrystal s / nitrofurantoin, monohydrate Macrobid rash Drug Allergy ActivepravastatinPravacholmuscle achingDrug AllergyActiveamoxicillinAmoxicillin hivesDrug AllergyActiveatorvastatinAtorvastatinmuscle acihngDrug AllergyActive codeineCodeineunknownDrug AllergyActiveoxycodoneOxycodonevomitingDrug Allergy ActivePenicillinchildhood allergyDrug AllergyActive Results Component Value Reference Range Notes GLYCOHEMOGLOBIN A1C Reviewed date:08/14/2024 11:42:29 AM Interpretation: Performing Lab: Notes/Report: [facility] , Glycohemoglobin A1C 6.1 4.5-6.2 % ADA RECOMMENDED LIMIT 4.0 - 6.0 ADA THERAPEUTIC TARGET < 7.0 ACTION SUGGESTED > 7.0 Estimated Average Glucose 128 Performing Lab:see noteML - [facility] LBINSULIN Reviewed date:08/17/2024 04:01:24 PM Interpretation: Performing Lab: Notes/Report: [facility] ,Insulin8.82.6-24.9 uIU/mL Performed at: - [facility] [id number] Hospitality Recruiter: Bob Rich PhD, Phone: [phone] Performing Lab:see [facility] LBLIPID PROFILE Reviewed date:08/14/2024 11:42:29 AM Interpretation: Performing Lab: Notes/Report: [facility] ,Jlcuhzeypnqun16<=150 mg/aBOxaanhxzncz033<=200 mg/dLHDL Ihyymqsfpiw2868-74 mg/dL > or =60 mg/dl - LOW CARDIOVASCULAR RISK <40 mg/dl - HIGH CARDIOVASCULAR RISK LDL Cholesterol Dtvkoyiaub336.0 <100 mg/dl OPTIMAL 100-129 mg/dl NEAR OR ABOVE OPTIMAL 130-159 mg/dl BORDERLINE HIGH 160-189 mg/dl HIGH >190 mg/dl VERY HIGH VLDL KSKXPTRKMZN26.4Chol HDL Ratio2.9 3.3 - 4.4 LOW RISK 4.4 - 7.1 AVERAGE RISK 7.1 - 11.0 MODERATE RISK >11.0 HIGH RISK Performing Lab:see note - [facility] LBCortisol Reviewed date:08/16/2024 03:36:03 PM Interpretation: Performing Lab: Notes/Report: [facility] ,Cortisol6.66.2-19.4 ug/dL Please Note: The reference interval and flagging for this test is for an AM collection. If this is a PM collection please use: Cortisol PM: 2.3-11.9 Performed at: [address] [id number] Hospitality Recruiter: Bob Rich PhD, Phone: [phone] Performing Lab:see [facility] LBXR lumbar spine min 4V Reviewed date:08/16/2024 03:36:03 PM Interpretation: Performing Lab: Notes/Report: Source Facility: [facility]-[address] [place] [address] [place] [address] XRay Report Signed Patient: CHERYL BARKER MR#: [id number] : 1965 Acct:[id number] Age/Sex: 59 / F ADM Date: 08/14/24 Loc: RAD Attending Dr: Sera Arciniega M.D. Ordering Physician: Sera Arciniega M.D. Date of Service: 08/14/24 Procedure(s): XR lumbar spine min 4V Accession Number(s): [id number] cc: Sera Arciniega M.D. [place] [id number] Patient Name: CHERYL BARKER MRN: [id number] date: 1965 Sex: F Assigned Patient Location: [facility] Current Patient Location: [facility] Accession/Order Number: [id number] Exam Date: 08/14/2024 12:42 Report Date: 08/14/2024 12:44 At the request of: SERA ARCINIEGA MD Procedure: XR lumbar spine min 4V XR lumbar spine min 4V 08/14/2024 8:21 AM SIGNS AND SYMPTOMS: Chronic low back pain radiating into hips PROTOCOLS: Frontal, lateral, and oblique radiographs of the lumbar spine COMPARISON: None FINDINGS: Facet hypertrophy contributes to 1 cm of anterolisthesis of L4 upon L5. There is mild disc height loss at L4-5 with moderate disc height loss at L5-S1. There is minimal disc height loss with anterior ossification formation at L1-L2 and L2-L3.. There is no fracture or destructive lesion. Mild degenerative changes are noted in the sacroiliac joints. Surgical clips are noted in the right upper quadrant consistent with prior cholecystectomy. XR/XR lumbar spine min 4V IMPRESSION: No acute bony injury. Facet hypertrophy contributes to 1 cm of anterolisthesis of L4 upon L5. Disc degenerative changes are present, greatest at L5-S1. Impression dictated by: Kunal Osorio M.D. 08/14/2024 12:44 PM Dictation Location: [place] [address] Electronically authenticated by: [id number] Y Date: 08/14/2024 12:44 Dictated By: Kunal Osorio M.D. Signed By: 08/14/24 1246 DD/ 1244 TD/TT: Drill Grinder: Reason For Referral Diagnosis 1 Lumbar radiculopathy (M54.16) Referral Organization [facility] Referring Provider First Name Artur Referring Provider Last Name Fausto Referring Provider Speciality Family Med icine Referred Provider [facility], [place] Referred Provider Specialty Physical The rapist Referral Priority Routine Diagnosis 1 Lumbar radiculopathy (M54.16) Referral Organization [facility] Medicine Referring Provider First Name Artur Referring Provider Last Name Fausto Referring Provider Speciality Family Med shasta Referred Provider [facility] Gonzalez Reha Latrice harrell Referred Provider Specialty Physical The rapist Referral Priority Routine Medications Medication SIG (Take, Route, Frequency, Duration) Notes Start Date End Date Status Bactrim DS 800-160 MG 1 tablet Orally bid; Durat ion: 10 days 4ActivetiZANidine HCl 2 MG2 tabs Orally qhs; Duration: 30 days 5ActivePyridium 200 MG1 tablet after meals Orally Three times a day; Duration: 2 days01/13/2024ctiveMeloxicam 15 MG1 tablet Orally Once a day; Duration: 30 days5Active Social History Tobacco Use: Social History Observation Description Date Details (start date - stop date) Never Smoker NA - NA Tobacco Control (Standard) Question Answer Notes Tobacco use: Nonsmoker AUDIT-C (Standard) Question Answer Notes Did you have a drink containing alcohol in the p ast year? Yes How often did you have six or more drinks on one occasion in the past year?Never (0 point)How many drinks did you have on a typical day when you were drinking in the past year?1 or 2 drinks (0 point)How often did you have a drink containing alcohol in the past year?2 to 4 times a month (2 points)Qzeond6Sanugbjsfxcwky Negative Problems Problem Type SNOMED Code ICD Code Onset Dates Problem Status W/U Status Risk Notes Problem Hyperlipidemia (76918351) Hyperlipidemia, unspecified (E78.5) ActiveconfirmedProblemSnoring (20839623)Snoring (R06.83)ActiveconfirmedProblem Dysuria (52391861)Dysuria (R30.0)ActiveconfirmedProblemHiatal hernia (02039218) Hiatal hernia (K44.9)ActiveconfirmedProblemArteriovenous malformation (13820909) AVM (arteriovenous malformation) (Q27.30)ActiveconfirmedProblemMigraine (11268803)Migraine (G43.909)ActiveconfirmedProblemLumbar radiculopathy (895526546)Lumbar radiculopathy (M54.16)ActiveconfirmedProblemDiarrhea (39823342)Diarrhea (R19.7)ActiveconfirmedProblemWell adult (464676237)Well adult (Z00.00)ActiveconfirmedProblemUterine prolapse (30114553)Uterine prolapse (N81.4)ActiveconfirmedProblemAcute urinary tract infection (245244353)Acute UTI (N39.0)ActiveconfirmedProblemAdrenal cortical hypofunction (100334163)Cortisol deficiency (E27.49)Activeconfirmed Vital Signs Blood pressure diastolic 90 mm Hg 08/06/2024 Yryqnb98 in08/06/2024lood pressure cepusteu113 mm Hg08/06/20242198Fsaezl422.2 lbs 08/06/2024BMI30.93 kg/m208/06/2024 Encounters Encounter Location Date Provider Diagnosis [facility] [address] [facility] [place] [address] 08/02/[address] [facility] [facility] [place] [address] 08/16/2024Doug HoyLumbar radiculopathy M54.16[facility] [facility] [place] [address]/30/2025Doug HoyHyperglycemia R73.9 [facility] [facility] [place] [address] 09/03/2024Doug [facility] [facility] [place] [address] [facility] [place] [address] [facility] [place] [address]Doug [facility] [facility] [place] [address]Doug [facility] [place] [facility] [place] [address]/16/2025 Artur HoyLumbar radiculopathy M54.16 Assessments Encounter Date Diagnosis (ICD Code) Assessment Notes Treatment Notes Treatment Clinical Notes Section Notes 08/16/2024 Lumbar radiculopathy (ICD-10 - M 54.16) 08/20/2024Hyperglycemia (ICD-10 - R73.9)08/06/2024Lumbar radiculopathy (ICD-10 - M54.16)08/06/2024OtherRecommended to rest and use a heating pad on the area. Take NSAIDs for pain as needed Plan Of Treatment Pending Test Test Name Order Date CMP (COMPLETE METABOLIC PANEL) UA (URINALYSIS, COMPLETE) 08/08/2022 CULTURE, STOOL 04/22/2023 [...] (EBV) AB PROFILE 01/22 GLYCOHEMOGLOBIN A1C 08/14/2022 GLYCOHEMOGLOBIN A1C 08/20/2024 INSULIN 08/20/2024 INSULIN 08/14/2022 IRON 08/14/2022 LIPID PROFILE 10/03/2022 [...] Date MMO [employer] [address] [place] [address] [id number] Cheryl Bakrer Self - patient is the insured 5 Medical (General) History Medical History History ICD Code Cervical disc disease M50.90 Rectocele N81.6 Seasonal allergic rhinitis J30.2 Heart attack I21.9 Surgical History Surgery Date(Month/Year) Cystoscopy 07/2022 Lap Hysterectomy, Bilat Salppingo-oophor ectomy, Cystoscopy 09/2022 cystocele repair with axis graft 09/01/23 cholecystectomy tonsillectomy
--- OUTSIDE RECORDS SUMMARY | 2025-01-19 15:36 | XMS_ITS | Clinical Summary ---
Author Organization [facility] Address [address], [address] [place] [address] Care Team Providers Care Director Of Kids Name Role Phone Erwin Lambert MD Primary Care Provider [phone] Allergies Active AllergyReactionsCriticalityNoted DateCommentsAmoxicillinHives,Other (See Comments),Rash,Nausea And BzzpxgmqItlg68/03/2012spirinNausea And VomitingLow 02/21/2017AtorvastatinOther (See Comments)4CiprofloxacinMyalgia,RashLow 4CodeineHives,Swelling,Rash,Nausea And CfzlqwomLaxnej75/03/2012Lactose 05/24/2024LatexItching,PfgqNwlxhc94/25/2023NitrofurantoinOther (See Comments), Myalgia,PovqRhczrk30/30/2024 Joint pain OxycodoneOther (See Comments),Nausea And IsscarwoEts65/01/2017 Oxycodone-AcetaminophenNausea And UcvjgvnuGnmm59/25/2023Oxycodone-AspirinNausea And Vomiting,Other (See Comments)Low09/24/2011StatinsMyalgia,Other (See Comments)10/15/2022Wheat Aofcfbt0005/24/2024 Medications MedicationSigDispense QuantityRefillsLast FilledStart DateEnd DateStatus Polyethylene Glycol 3350 (MIRALAX PO) Take 17 g by mouth05/03/2022ctive ezetimibe (ZETIA) 10 MG tablet Take 1 tablet by mouth04/29/2022ctive lansoprazole (PREVACID) 30 MG delayed release capsule Take 1 capsule by mouth dailyActive simethicone (MYLICON) 80 MG chewable tablet Take 1 tablet by mouth 4 times daily as needed for Flatulence 60 tablet ctive loratadine-pseudoephedrine (CLARITIN-D 12 HOUR) 5-120 MG per extended release tablet Take 1 tablet by mouth 2 times daily as qqkray1308/13/2023ctive nitroGLYCERIN (NITROSTAT) 0.[address] 1 tablet under the tongue every 5 minutes as xnxcab0302/24/2017Active estradiol (ESTRACE) 0.1 MG/GM vaginal cream Place 1 g vaginally Twice a Week 42.5 g 03/22/2024ctive Active Problems ProblemNoted DateDiagnosed DateAdrenal hertxdb6209/03/20232531Izmdhsd75/12/2024 Cervical disc qyxkams7709/03/2023ervical /12/2024onstipation 09/03/20230406Cjzcuuqzfo85/12/0330Elccjkl84/12/2024Epigastric pain09/03/2023Feeling of incomplete bladder bjzulxed10/12/2024Generalized ischemic myocardial csbpdiyhszg90/12/2024Hiatal hernia with GERD without dcccxytgfqy84/12/2024Hx of myocardial wdjheyvqha24/12/2024Microscopic bzocdjedy56/12/2024Non-ST elevated myocardial infarction (non-STEMI)09/03/20234339Qypuxmfhh65/12/2024Seasonal allergies 09/03/2023Sigmoid gpjcnrhgspuwmd69/12/2024Urine nyxzclyar82/12/2024Weak urinary bdggpj1309/03/2023HPV (human papilloma virus) daoouoipd81/12/2024S/P anterior colporrhaphy w/ [place] dermis, Cystoscopy 08/31/24059818Bamspbhmeuw07/22/2024 Nmyrirbdudybwy36/13/2024Takotsubo uzvaqtsl41/13/2024Uterine /30/2023 Cystocele with /30/2023Stress incontinence of urine10/20/2022S/p RALH, BSO, A/P repair, Cysto, Bulkamid 10/21/2306 Resolved Problems ProblemNoted DateDiagnosed DateResolved DatePreop cardiovascular exam08/21/2023 10/03/2023 Immunizations ImmunizationAdministration DatesNext DueCOVID-19, Inactive, MODERNA BLUE border, Primary or Immunocompromised, (age 12y+)03/19/2021,05/19/2020,04/21/2020Hep B, Dialysis/Immuno, RECOMBIVAX-HB, (age 18y+), IM, 1mL1Hep B, RECOMBIVAX- HB, (age 20y+), IM, 1mL1Influenza Virus Emazdjc9501/18/2020 Family History Medical HistoryRelationNameCommentsOtherFatherDiabetesMotherOtherMotherRelation NameStatusCommentsBrother 1AliveBrother 2AliveChild 1sonAliveChild 2daughter AliveFatherAliveMotherAlive Social History Tobacco UseTypesPacks/DayYears UsedDateSmoking Tobacco: Never Tobacco Cessation:Counseling Given: Not Answered Alcohol UseStandard Drinks/WeekCommentsYes0 (1 standard drink = 0.6 oz pure alcohol)social-1x a weekInterpersonal Safety Domain Source: IP Abuse Screening AnswerDate RecordedPhysical hyfjmGagqmr18/10/2024Verbal hvkgpGsjgur23/10/2024 Emotional fccvxKlnrej87/10/2024Financial qqqrsXfhfkf90/10/2024Sexual abuseDenies 09/01/2023CommentsNoSex and Gender InformationValueDate RecordedSex Assigned at PllniZokzdd84/07/2025 9:15 AM EDTLegal VwdIpnrkr67/12/2013 11:43 PM ESTGender IdentityNot on fileSexual OrientationNot on fileOccupationIndustryJob Start DateJob End Datespeech pathologistNot on fileNot on fileNot on file Last Filed Vital Signs Vital SignReadingTime TakenCommentsBlood Tcfnckyw010/9003 3:20 PM EST Bqfjs8658 3:20 PM KCTYjbybdqfoap72.7 ??C (98 ??F)09/08/2023 9:18 AM EDT Respiratory Foun3520 10:45 AM EDTOxygen Iclkerlbug244%05/24/2024 3:20 PM ESTInhaled Oxygen Concentration--Exduxy27 kg (172 lb)05/24/2024 3:20 PM EST Ttzuzb832.6 cm (5' 4 )09/01/2023 6:13 AM EDTBody Mass Index29.52009/01/2023 6:13 AM EDT Plan of Treatment Health MaintenanceDue DateLast MuzoWvywafqfN1Z test (Diabetic or Prediabetic) 07/24/1973Depression Spcszzpfae76/03/1976HIV plqhvq6207/24/1978Hepatitis C screen 07/24/1981DTaP/Tdap/Td vaccine (1 - Tdap)07/24/1982Pneumococcal 50+ years Vaccine (1 of 2 - PCV)07/24/1982Hepatitis B vaccine (2 of 3 - 19+ 3-dose series) , 01/21/2002Breast cancer dpyyet0807/25/20038560Yqepnz63/03/2004 Rnkvscwugfb50/03/2009Colorectal Cancer Kcwrhn5407/24/2008FIT/FOBT: Average risk 07/24/2008Fecal-DNA (Cologuard): Average risk07/24/2008Sigmoidoscopy/CT wctygkiujanc92/03/2009Respiratory Syncytial Virus (RSV) or age 60 yrs+ (1 - Risk 60-74 years 1-dose series)2023Shingles vaccine (2 of 2) 504/05/2024Flu vaccine (#1)/04/2021, 01/18/2020, 12/23/2019 COVID-19 Vaccine ( season)/, 05/19/2020, 1Pap smear8005/24/2024ervical cancer yxbtcx2705/24/2029HPV (without or with Pap)Hepatitis A vaccineAged OutNo longer eligible based on patient's age to complete this topicHib vaccineAged OutNo longer eligible based on patient's age to complete this topicMeningococcal (ACWY) vaccineAged OutNo longer eligible based on patient's age to complete this topicMeningococcal B vaccineAged OutNo longer eligible based on patient's age to complete this topicPolio vaccineAged OutNo longer eligible based on patient's age to complete this topic Medical Devices ImplantedTypeAreaManufacturerDevice IdentifierShelf Expiration DateModel / Serial / LotSystem Bulking Proc Bulkamid Urethral - [id number] Implanted:Qty: 1 on 10/21/2022 [facility] UrethraAX[employer] MOD[employer]05/21/[id number] / / [id number] [place] 6cm X 8cm Tutoplast Processed Dermis - [id number] Implanted:Qty: 1 on 09/01/2023 by [facility]: PelvisCOLOPLAST ALEJANDRO-WD/[id number] / [id number] / [id number] Procedures Procedure NamePriorityDate/TimeAssociated DiagnosisCommentsHUMAN PAPILLOMAVIRUS (HPV) DNA PROBE THIN PREP HIGH UWILNdrxvwq69/03/2025 12:00 AM EST PILLOWCASE MAKER ZWXXVHBRGpwjipu25/03/2025 12:00 AM EST from Last 3 Months or Most Recently Relevant to Health Maintenance Results * Human papillomavirus (HPV) DNA probe thin prep high risk (05/24/2024 12:00 AM EST)ComponentValueRef RangeTest MethodAnalysis TimePerformed AtPathologist SignatureSpecimen Description.VAGINAL KTWWRNWZ35/03/2025 12:00 AM ESTMERBoston Power LABORATORIESHPV Sample.THIN PREP05/24/2024 12:00 AM ESTMERBoston Power LABORATORIESHPV, Genotype 16Not DetectedNot Hfshdmat91/03/2025 12:00 AM [facility] HPV, Genotype 18Not DetectedNot Rxxbnrhl31/03/2025 12:00 AM ESTMERBoston Power LABORATORIESHPV, High Risk OtherNot DetectedNot Flvxcyqu11/03/2025 12:00 AM ESTMERBoston Power LABORATORIESHPV, Kfrnegjqcopntc55/03/2025 12:00 AM ESTMERBoston Power LABORATORIESComment: This test amplifies and detects DNA of 14 high-risk HPV types associated with cervical cancer and its precursor lesions (HPV types 16,18, 31, 33, 35, 39, 45, 51, 52, 56, 58, 59, 66, and 68). ? Sensitivity may be affected by specimen collection methods, stage of infection, and the presence of interfering substances. Results should be interpreted in conjunction with other available laboratory and clinical data. A negative high-risk HPV result does not exclude the possibility of future cytologic HSIL or underlying CIN2-3 or cancer. ? This test is intended for medical purposes only and is not valid for the evaluation of suspected sexual abuse or for other forensic purposes. Specimen (Source)Anatomical Location / LateralityCollection Method / Volume Collection TimeReceived TimeSPECIMEN FROM CERVIX OR VAGINA / Rzwwozr3905/24/2024 Narrative Authorizing ProviderResult TypeResult StatusSkye Coles BRASS FINISHER - CNPHEMATOLOGY ORDERABLESFinal ResultPerforming OrganizationAddressCity/State/[place] [address], [facility] [phone] * PILLOWCASE MAKER Cytology (05/24/2024 12:00 AM EST)ComponentValueRef RangeTest Method Analysis TimePerformed AtPathologist SignatureCytology ReportPath Number: [id number] DIAGNOSIS Imaged ThinPrep Pap - Vaginal (1 monolayer slide): Specimen Adequacy: ? Satisfactory for evaluation. Descriptive Diagnosis: ? Negative for intraepithelial lesion or malignancy. Comments: ? Specimen was screened at [facility], [facility] [address] Cytotech Screener: ??CS Electronically Signed Out CRISTINA Major(ASCP) /05/29/2024 Procedure/Addendum HPV Procedure Report ? Date Ordered: ? 05/25/2024 ? Status: Signed Out ? Date Complete: ? 05/26/2024 ? By: System Interface ? Date Reported: ? 05/26/2024 ? Sample: ??HPV Type 16 ?Result: ?? Not Detected ?Ref Range: Not Detected Sample: ??HPV Type 18 ?Result: ?? Not Detected ?Ref Range: Not Detected Sample: ??Other High Risk HPV ?Result: ?? Not Detected ?Ref Range: Not Detected Sample: ??HPV Interp ?Result: ? Ref Range: This test amplifies and detects DNA of 14 high-risk HPV types associated with cervical cancer and its precursor lesions (HPV types 16,18, 31, 33, 35, 39, 45, 51, 52, 56, 58, 59, 66, and 68). ? Sensitivity may be affected by specimen collection methods, stage of infection, and the presence of interfering substances. Results should be interpreted in conjunction with other available laboratory and clinical data. A negative high-risk HPV result does not exclude the possibility of future cytologic HSIL or underlying CIN2-3 or cancer. ? This test is intended for medical purposes only and is not valid for the evaluation of suspected sexual abuse or for other forensic purposes. Performed at [facility], [address] [place] [address] ??[phone]. ?? Source of Specimen: A: Imaged ThinPrep Pap - Vaginal (1 monolayer slide) HPV Reflex?......................HPV Regardless Clinical History Previous cervical dysplasia Hysterectomy: VAGINAL Z01.419 Routine obstetrics gynecology md exam without abnormal findings Z11.51 Encounter for screening for HPV History of: HPV LMP: ??09/02/2011 Processing Lab: [facility] [address] [place] [address] Interpretation performed at [facility], [address] [place] [address] This Pap Test has been evaluated with [...] GYNECOLOGIC CYTOLOGY REPORT Patient Name: CHERYL BARKER [facility] Rec: [id number] [facility] ??[facility] ANATOMIC PATHOLOGY [address] [place] [address]. ??[place] [address] bon Emulate LABSSpecimen (Source)Anatomical Location / LateralityCollection Method / VolumeCollection TimeReceived Time /06/2024 7:48 AM EST Narrative Authorizing ProviderResult TypeResult StatusJill Sharyn BRASS FINISHER - ADMINISTRATIVE ASSISTANT COORDINATOR PATHOLOGY/CYTOLOGY ORDERABLESFinal ResultPerforming OrganizationAddress City/State/ZIP CodePhone Number [facility] [address] [place], [place] [id number] [place] [address] [facility]ulate LABS from Last 3 Months or Most Recently Relevant to Health Maintenance Insurance Care Teams Team MemberRelationshipSpecialtyStart DateEnd Erwin Lambert MD [address] [place] [address] PCP - GeneralFamily Medicine10/14/22
--- OUTSIDE RECORDS SUMMARY | 2025-01-19 15:36 | XMS_ITS | Clinical Summary ---
Author Organization [facility] Address [address] [place] [address] Phone Care Team Providers Care Fios Line Installer Name Role Phone Erwin Lambert MD Primary Care Provider [phone] Allergies Active AllergyReactionsCriticalityNoted NairQtjtodivLcojsemmhgpNgroe70/13/2024 FzjkccysxemrIterm53/13/2024iprofloxacinMyalgia,ObtkYuc8205/08/2023EzetimibeOther 06/04/2023Nitrofurantoin Monohyd/M-CrystOther,OuzlYpchvr73/30/2024OxycodoneOther 06/04/20235666GmjddzgriyyKjydu80/13/2635Ohwnnkz-Bts-Bae Reductase InhibitorsOther 06/04/2023 Medications MedicationSigDispense QuantityRefillsLast FilledStart DateEnd DateStatus aspirin 81 mg EC tablet Take 1 tablet (81 mg) by mouth once daily.Active lansoprazole (Prevacid) [address] capsule 1 capsule (30 mg) once daily.05/23/2023ctive loratadine-pseudoephedrine (Claritin-D 12 Hour) 5-120 mg 12 hr tablet Take 1 tablet by mouth every 12 hours if needed.08/13/2023ctive ezetimibe (Zetia) 10 mg tablet Indications:Mixed hyperlipidemiaTake 1 tablet (10 mg) by mouth once daily at bedtime. 90 tablet ctive Active Problems ProblemNoted DateDiagnosed DateObesity (BMI 30-39.9)11/12/2024Never smoked wqetzlk0411/12/2024Obstructive sleep apnea11/12/2024Preop cardiovascular exam 08/21/20230046Edciyqptubnzyc85/13/2024Takotsubo dhzlbyow28/13/2024 Resolved Problems ProblemNoted DateDiagnosed DateResolved DateBMI 29.0-29.9,adult08/21/2023 11/12/2024 Encounters DateTypeDepartmentCare NozuTkbbtpkgwpo38/22/2025 11:30 AM EDTOffice Visit [address] [place] [address] Bert Serrano MD Takotsubo syndrome (Primary Dx); Mixed hyperlipidemia; Obesity (BMI 30-39.9); Never smoked tobacco; Obstructive sleep apnea Discharge Disposition: Home11/12/2024Travelfrom Last 3 Months Immunizations ImmunizationAdministration DatesNext DueHepatitis B vaccine, adult *Check Product/Dose*01/21/2002Influenza, Dlwrjvcahjn59/27/2020Influenza, seasonal, gpaqahxiwr73/02/2022,12/23/2019 Family History Medical HistoryRelationNameCommentsDiabetesFatherHypertensionFatherDiabetes MotherHeart diseaseMotherRelationNameStatusCommentsFatherMother Social History Tobacco UseTypesPacks/DayYears UsedDateSmoking Tobacco: NeverSmokeless Tobacco: Never Tobacco Cessation:Counseling Given: Not Answered Alcohol UseStandard Drinks/WeekCommentsYes1 (1 standard drink = 0.6 oz pure alcohol)CommentsUnknownSex and Gender InformationValueDate RecordedSex Assigned at BirthNot on fileLegal EghQfwzhg69/26/2022 6:14 PM ESTGender Identity Not on fileSexual OrientationNot on file Last Filed Vital Signs Vital SignReadingTime TakenCommentsBlood Zkffvunl077/8211/12/2024 12:11 PM EDT Nfjit709111/12/2024 12:11 PM EDTTemperature--Respiratory Rate--Oxygen Saturation-- Inhaled Oxygen Concentration--Sijssk76.8 kg (180 lb 6.4 oz)11/12/2024 12:11 PM GWTSjbdwj752.6 cm (5' 4 )11/12/2024 12:11 PM EDTBody Mass Index30.9711/12/2024 12:11 PM EDT Plan of Treatment DateTypeDepartmentCare Team (Latest Contact Info)Ogozdkrzqfx24/24/2026 9:10 AM EDTOffice Visit [place] [address] [place] [address] Bert Serrano MD [address] [facility] [address] [place] [address] Health MaintenanceDue DateLast DoneCommentsCT Jlckynjwnftf51/03/1964FIT-DNA (Cologuard)1963FIT1963HIV Deaymihjt18/03/1964Lipid Panel1963 Llzpaoaowyfku54/03/1964MMR Vaccines (1 of 1 - Standard series)07/24/1964Diabetes Sygrwcgev37/03/1982Hepatitis C Tcnhqxetn71/03/1982HPV/Wzybux9707/24/1984 DTaP/Tdap/Td Vaccines (1 - Tdap)07/24/1985Hepatitis B Vaccines (2 of 3 - 19+ 3- dose series)Pneumococcal Vaccine (1 of 1 - PCV)07/24/2013RSV High Risk: (Elderly (60+) or Population) (1 - Risk 50-74 years 1-dose series)07/24/2013Influenza Vaccine (#1)/04/2021, 01/18/2020, 12/23/2019, Additional history lbgfhrXhwkvkhns80/26/202508/4COVID-19 Vaccine (2024- season)/, 05/19/2020, 04/21/2020Yearly Adult Lrnckacp86/603/ervical Cancer Kmqbopfen16/03/2028Pap Smear 803/1064Hctzlyrtwmp53/08/203303/olorectal Cancer Screening 05/29/2032Zoster UetdealePfborxstj03/17/2025, 06/24/2024HIB VaccinesAged OutNo longer eligible based on patient's age to complete this topicHPV VaccinesAged OutNo longer eligible based on patient's age to complete this topicHepatitis A VaccinesAged OutNo longer eligible based on patient's age to complete this topic IPV VaccinesAged OutNo longer eligible based on patient's age to complete this topicMeningococcal VaccineAged OutNo longer eligible based on patient's age to complete this topicRotavirus VaccinesAged OutNo longer eligible based on patient's age to complete this topic Insurance Care Teams Team MemberRelationshipSpecialtyStart Date Erwin Lambert MD [address] [facility] [address] [place] [id number] PCP - GeneralFamaly Medicine08/21/23
--- OUTSIDE RECORDS SUMMARY | 2025-01-19 15:36 | XMS_ITS | Clinical Summary ---
Author Organization [facility] Address [address] [place] [address] Care Team Providers Care Clothing Pattern Preparer Name Role Phone Erwin Lambert MD Primary Care Provider [phone] Social History Tobacco UseTypesPacks/DayYears UsedDateSmoking Tobacco: Never Assessed CommentsUnknownSex and Gender InformationValueDate RecordedSex Assigned at Not on fileLegal ByjWkmnok80/15/2023 11:25 PM EDTGender IdentityNot on file Sexual OrientationNot on file Last Filed Vital Signs Vital SignReadingTime TakenCommentsBlood Pressure--Pulse--Temperature-- Respiratory Rate--Oxygen Saturation--Inhaled Oxygen Concentration--Lttvlv89.1 kg (170 lb)10/22/2021 12:00 PM CJJByxxig186.6 cm (5' 4 )10/22/2021 12:00 PM EDTBody Mass Index29.18010/22/2021 12:00 PM EDT Plan of Treatment Health MaintenanceDue DateLast DoneCommentsCT Bhabymokpcdi88/03/1964Colonoscopy 1963Colorectal Cancer Grtpbghwi83/03/1964FIT-DNA1963FIT1963 FOBT1963 4058Jcefbthngcodf13/03/1964MMR Vaccines (1 of 1 - Standard series) 07/24/1964DTaP/Tdap/Td Vaccines (1 - Tdap)07/24/1970Pap Smear07/24/1984Cervical Cancer Gwsxildws77/03/1994HPV/Hytpln4607/24/19936989Mbhrtahhd28/03/2004COVID-19 Vaccine (2024- season), 05/19/2020, 04/21/2020 Influenza Vaccine (#1)511/04/2021, 01/18/2020, 12/23/2019HIB Vaccines Aged OutNo longer eligible based on patient's age to complete this topicHPV VaccinesAged OutNo longer eligible based on patient's age to complete this topic Hepatitis A VaccinesAged OutNo longer eligible based on patient's age to complete this topicHepatitis B VaccinesAged OutNo longer eligible based on patient's age to complete this topicIPV VaccinesAged OutNo longer eligible based on patient's age to complete this topicMeningococcal B VaccineAged OutNo longer eligible based on patient's age to complete this topicMeningococcal VaccineAged OutNo longer eligible based on patient's age to complete this topicPneumococcal Vaccine: Pediatrics (0 to 5 Years) and At-Risk Patients (6 to 64 Years)Aged Out No longer eligible based on patient's age to complete this topicRotavirus VaccinesAged OutNo longer eligible based on patient's age to complete this topic Insurance Care Teams Team MemberRelationshipSpecialtyStart DateEnd Erwin Lambert MD PCP - GeneralFamily Medicine09/18/23
--- OUTSIDE RECORDS SUMMARY | 2025-01-19 15:36 | XMS_ITS | Clinical Summary ---
Author Organization [facility] Address [address] [place] [address] Care Team Providers Care Pediatric Neurologist Name Role Phone Erwin Lambert MD Primary Care Provider [phone] Allergies Active AllergyReactionsCriticalityNoted ZialIgyihnrpWboayzwnxwxXqbuczm05/03/2012 CiprofloxacinMyalgia,Rash8529CnkxovzOqigxhw11/03/2012Oxycodone-Aspirin Duwkbtv1209/24/2011 Medications MedicationSigDispense QuantityRefillsLast FilledStart DateEnd DateStatus lansoprazole (PREVACID) 30 mg capsule 05/23/2023ctive pantoprazole DR (PROTONIX) 40 mg tablet 07/18/2023ctive loratadine-pseudoephedrine ER (CLARITIN-D 12 HOUR) 5-120 mg per tablet Take 1 tablet by mouth two times a day as needed. for allergy symptoms. 08/13/2023ctive Active Problems ProblemNoted DateDiagnosed ZikcKdxkklovpfx11/22/2024 Family History Medical HistoryRelationCommentsThyroidFatherQuestionable historyCoronary Artery DiseaseMotherDiabetesMotherRelationStatusCommentsFatherMother Social History Tobacco UseTypesPacks/DayYears UsedDateSmoking Tobacco: NeverPassive Smoke Exposure: NeverSmokeless Tobacco: Never Tobacco Cessation:Counseling Given: Not Answered Alcohol UseStandard Drinks/WeekCommentsYes0 (1 standard drink = 0.6 oz pure alcohol)Once a week or less.Area Deprivation IndexAnswerDate RecordedNational Score (1-100), lower number is lower nmye072108/13/2023State Score (1-10), lower number is lower xazm936ata from: https://www.neighborhoodatlas.medicine.[facility]/. Last address used for [address] [facility] [facility] [place] [id number] and Gender InformationValueDate RecordedSex Assigned at BirthNot on fileLegal SexFemale 09/03/2019 11:36 AM EDTGender IdentityNot on fileSexual OrientationNot on file OccupationIndustryJob Start DateJob End Datespeech language pathologistNot on fileNot on fileNot on file Last Filed Vital Signs Vital SignReadingTime TakenCommentsBlood Gsfyedcl764/9608/13/2023 12:58 PM EDT ALICIA BP VwuwbueLkrvz1628/22/2024 12:58 PM EDTTemperature--Respiratory Rate-- Oxygen Fvypbltcjv979%08/13/2023 12:58 PM EDTInhaled Oxygen Concentration--Weight 78.7 kg (173 lb 8 oz)08/13/2023 12:58 PM IYUCvzhhz620.6 cm (5' 4 )08/13/2023 12:58 PM EDTBody Mass Index29.78008/13/2023 12:58 PM EDT Plan of Treatment Health MaintenanceDue DateLast DoneCommentsAnxiety Gznwjnsnp00/03/1982Depression Fizugnpqi33/03/1982HIV Hyfubefwy86/03/1982Hepatitis C Wimnukwjj94/03/1982 DTaP,Tdap,Td Vaccine (1 - Tdap)07/24/1982Cervical Cancer Kyxtndrwz36/03/1985 Mammogram Bakmjzgur17/03/2004CT Gqwtybxmcpul31/03/2009Cologuard (FIT-DNA) 07/24/20085125Anskbictcgy56/03/2009Colorectal Cancer Oyvxejved45/03/2009Fecal Occult Blood07/24/2008Lipid Wcnxgvhud37/03/6155Kbvbzdukolhqh58/03/2009Pneumococcal Vaccine: 50+ (1 of 1 - PCV)07/24/2013Shingrix Vaccine (1 of 2)07/24/2013Covid-19 Vaccine (4 - season), 05/19/2020, 04/21/2020 Influenza Vaccine (#1)/04/2021, 01/18/2020, 12/23/2019, Additional history existsDiabetes Xcgssvhal79/04/761985/06/2022RSV Vaccine (1 - 1-dose 75+ series)07/24/2038 Insurance Care Teams Team MemberRelationshipSpecialtyStart DateEnd Erwin Lambert MD [address] [place] [address] PCP - GeneralFamily Medicine08/13/23
--- OUTSIDE RECORDS SUMMARY | 2025-01-19 15:39 | XMS_ITS | CCD ---
Author Organization [facility] CliniSyut Care Team Providers Care Candle Making Supervisor Name Role Phone VAMSI SERRANO Unavailable Unavailable MASTJANNA Unavailable Unavailable Mast, Janna E Unavailable Unavailable Unavailable Sera Lambert Primary Care Physician NILL ., DR LEMONS Admitting Unavailable NILL ., DR LEMONS Attending Unavailable HOY ., DR ZAMORA Primary Care Unavailable NILL ., DR LEMONS Consulting Unavailable SPENCER RAY Consulting Unavailable FAIZAN WILD Consulting Unavailable Cristo CROCKER Attending Unavailable Sera Lambert Referring Unavailable Sera Lambert Referring Unavailable SCOTLCristo Attending Unavailable Cristo CROCKER Attending Unavailable Cristo CROCKER Attending Unavailable Maggie, Dr. Noel Referring Unavaila ble Maggie, Dr. Noel Attending Unavaila ble Catherine, Dr. Janna Marti Primary Care UnavailSera Youssef MD Primary Care Provider [phone] SERA LAMBERT Primary Care Unavailable DEIRDRE MONTALVO Attending Unavailable Sera Lambert MD Primary Care Provider [phone] Sera Lambert MD Primary Care Provider [phone] MD Sera Lambert Primary Care Provider [phone] MD Sera Lambert Attending Provider SERA LAMBERT Primary Care Unavailable SKYE OLIVER Referring Unavailable SERA LAMBERT Primary Care Unavailable PETE ROD Attending Unavailable PETE ROD Admitting Unavailable Sera Lambert MD Primary Care Provider Buzz Naik DO Emergency Provider Sera Lambert Primary Care Unavailable Buzz Naik Admitting Unavailable Buzz Naik Attending Unavailable Sera Lambert Admitting Unavailable Sera Lambert Attending Unavailable Sera Lambert Primary Care Unavailable Sera Lambert MD Primary Care Provider [phone] VAMSI SERRANO Attending Unavailable VAMSI SERRANO Referring Unavailable SERA LAMBERT Primary Care Unavailable Allergies Allergy ClassificationReported Allergen(s)Allergy TypeDate of OnsetReaction(s) Facility (17 sources)Amoxicillin; Translations: [amoxicillin]Drug Kqjpuer89-87-6499Atrn (disorder), Unknown, Other, Hives, Other (See Comments), Rash, Nausea And VomitingGeneral Surgery [place] (6 sources)atorvastatin; Translations: [atorvastatin]Drug Doniptu85-35-4325Uqcoi [place] [address] DO Work Phone: (4 sources)ezetimibe; Translations: [Zetia]Drug Xupuevr44-40-7376FnrseMJ-ZxlzePhilip [place]ille [address] DO Work Phone: (4 sources)Hmg-Coa Reductase Inhibitors (Statins); Translations: [Statins] Allergy to drug (finding)[facility] Repository (9 sources)oxyCODONE; Translations: [oxycodone]Drug Rwuinwq77-58-6034Mbmop, Other (See Comments), Nausea And VomitingRyan [place] [address] DO Work Phone: (5 sources)Pravastatin; Translations: [Pravastatin Sodium TABS]Drug Allergy 28-20-6162CmtypRXPhilip Ville [address] DO Work Phone: (3 sources)Acetaminophen / oxyCODONE; Translations: [acetaminophen-oxycodone] Drug AllergyProjectile vomiting (disorder)General Surgery [facility] (8 sources)Aspirin / oxyCODONE; Translations: [aspirin-oxycodone]Drug Allergy 45-63-8692Ulkejvvrzh vomiting (disorder), Unknown, Nausea And Vomiting, Other (See Comments)[facility] [place] (11 sources)Codeine; Translations: [codeine]Drug Gxwniyr57-60-5099Wjljd (finding), Unknown, Hives, Swelling, Rash, Nausea And VomitingGeneral Surgery [place] (2 sources)HMG-CoA reductase inhibitor; Translations: [statins]Drug allergy Unknown (qualifier value)[facility] [place] (6 sources)Latex; Translations: [latex]Allergy to vhwwueifm88-99-3483JcqqsmdFirelands [facility] (5 sources)NITROFURANTOIN, MACROCRYSTALS / Nitrofurantoin, Monohydrate; Translations: [nitrofurantoin]Drug Scwmbcc58-23-9437Xhiio pain (finding), Cutaneous eruption (morphologic abnormality), Other, RashExecutive Urology of [facility] (1 source)Acetaminophen / oxyCODONEDrug Vexdjzj32-89-9133Pzk [facility] (1 source)Adhesive agentDrug allergy (disorder)96-44-8319Duy [facility] (1 source)AmoxicillinDrug Wajhuun79-25-3290Kio [facility] (2 sources)black walnut pollen extract; Translations: [ZKDAZOB-GOC-RLK REDUCTASE INHIBITORS]Drug Arwfayq94-26-2397Ndy [facility] (1 source)CodeineDrug Bhqoqsq45-78-6295Rxd [facility] (1 source)NitrofurantoinDrug Fmqvwal87-13-5628Uun [facility] (1 source)bandaids; Translations: [bandaids]Propensity to adverse reactions (disorder)[facility] Rep[facility] (8 sources)Ciprofloxacin; Translations: [CIPROFLOXACIN]Drug Lbwnrqg15-73-7263 [facility]algia, [facility] ([facility])OXYCODONE-ASPIRIN; Translations: [OXYCODONE-ASPIRIN]Propensity to adverse reactions to drug (disorder)83-23-4402XdhdsjhvcMer[facility] Health Rep[facility] (4 sources)HMG-CoA reductase inhibitorDrug Dqennrb03-35-7864Nlvlw, Myalgia, Other (See Comments)[facility] Work Phone: (2 sources)Acetaminophen / oxyCODONEDrug Adbhqov21-35-7755Bvdqcg And VomitingB[facility] (2 sources)NitrofurantoinDrug Soedgim78-35-8769Whcmh (See Comments), Myalgia, RashM[facility]INSV[facility] (4 sources)Aspirin; Translations: [aspirin]Drug Epktueu29-53-2797Yjiodi And VomitingSouthwest General Health Center (1 source)atorvastatinDrug Rvgqdkp27-29-8900Gyyvk (See Comments)Bon [facility] (1 source)LactoseDrug Jljkhyt76-20-7039Zor [facility] (1 source)WHEAT DEXTRINDrug Rwwnbqw14-54-9369Zuz [facility] (2 sources)meloxicam; Translations: [meloxicam]Drug Yrevnxr12-30-9966BrhbywDetwiler Memorial Hospital (2 sources)Eikvtmx-CGT-ZoY Reductase Inhibitor; Translations: [Fifujqf-WGK-XpK Reductase Inhibitor]Allergy to xglfatwqc20-29-9938Egwiv [facility] (1 source)AmoxicillinDrug Abdxtjl72-20-2558EqfjmrwqcSouthwest General Health Center Rep[facility] (1 source)CodeineDrug Taswgtr77-85-3484BehwqvzalSouthwest General Health Center Repository (1 source)oxyCODONEDrug Tdhlahp55-62-5579MyavouxrbSouthwest General Health Center Repository (1 source)ezetimibe; Translations: [EZETIMIBE]Drug Bvcqdke25-69-3106[facility] (1 source)Pravastatin; Translations: [PRAVASTATIN]Drug Xpjvszk57-92-0559CO [facility] (1 source)NITROFURANTOIN MONOHYD/M-CRYST; Translations: [NITROFURANTOIN MONOHYD/M-CRYST]Propensity to adverse reactions to drug (disorder)65-96-3205RZ [facility] Medications Current Medications MedicationDrug Class(es)DatesSig (Normalized)Sig (Original)acetaminophen 325 mg / oxyCODONE hydrochloride 5 mg oral tablet (1 source)Opioid AgonistStart: 09-01-2023 End: 22-82-5076jceGFVNDN-acetaminophen (PERCOCET) 5-325 MG per tablet Indications: S/P anterior colporrhaphy Take 1 tablet by mouth every 6 hours as needed for Pain for up to 5 doses. Intended supply: 7 days. Take lowest dose possible to manage pain Max Daily Amount: 4 tablets 5 tablet 0 09/01/2023 09/05/2023 Activeaspirin 81 mg delayed release oral tablet (10 sources)Platelet Aggregation Inhibitor, Nonsteroidal Anti-inflammatory Drug Start: 68-97-4029efif 1 tablet by mouth once dailyaspirin 81 mg Oral EC Tab 81 mg = 1 tab(s), Oral, Daily, Refills(s) 0 Start Date: 05/03/22 Status: Ordered Start: 02-24-2017 End: 08-73-0468jyvt 1 tablet by mouth once dailyAspirin (Aspir-) 81 mg tablet,delayed release (DR/EC) Discontinued 81 MG PO Daily February 24, 2017 1:00am September 21, 2017 12:00am September 22, 2017 12:02amatorvastatin 20 mg oral tablet (2 sources)HMG-CoA Reductase InhibitorStart: 62-69-8793rhmb 1 tablet by mouth once daily in the eveningAtorvastatin 20 mg Tablet Active 20 MG PO Every evening February 24, 2017 1:00amcalcium chloride 0.0014 meq/ml / potassium chloride 0.004 meq/ml / sodium chloride 0.103 meq/ml / sodium lactate 0.028 meq/ml injectable solution (1 source)Start: 33-81-9820fclaezbt ringers IV soln infusioncephalexin 500 mg oral capsule (1 source)Cephalosporin AntibacterialStart: 09-01-2023 End: 87-65-1292ltcqTNENqm (KEFLEX) 500 MG capsule Take 1 capsule by mouth 3 times daily for 7 days Please take for5 days if discharged home without mcmillan catheter, take all 7 days if discharged home with mcmillan catheter. 21 capsule 0 09/01/2023 09/08/2023 Ixfhrr55 hr cetirizine hydrochloride 5 mg / pseudoephedrine hydrochloride 120 mg extended release oral tablet (2 sources)alpha-Adrenergic Agonist, Histamine-1 Receptor AntagonistStart: 91-23-4912wwzj 1 tablet by mouth once at bedtime, then take 1 tablet by mouth every twelve hoursCetirizine-Pseudoephedrine (Zyrtec-D) 5-120 mg Tablet Extended Release 12 Hr Active 1 TAB PO Bedtime February 21, 2017 1:00amdocusate sodium 50 mg / sennosides, assisted 8.6 mg oral tablet (2 sources)Start: 09-01-2023 End: 27-70-1566xrqp 8.6-50 mg by mouth once at bedtimesenna-docusate (SENOKOT S) 8.6-50 MG per tablet Take 1 tablet by mouth at bedtime 30 tablet 0 09/01/2023 10/01/2023 ActiveStart: 45-10-7740tpax 1 tablet by mouth at bedtimesennosides- docusate sodium (SENOKOT-S) 8.6-50 MG tablet Take 1 tablet by mouth in the morning and at bedtime 60 tablet 1 10/21/2022 Suspendedestradiol 0.1 mg/ml vaginal cream (2 sources)EstrogenStart: 25-70-3923sjqbuuose (ESTRACE) 0.1 MG/GM vaginal cream Place 1 g vaginally Twice a Week 42.5 g 03/22/2024 ActiveStart: 09-24-2011 End: 15-72-0359Izxhkdrbj (VAGIFEM) 10 mcg vaginal tablet Use 1 tablet vaginally. 0 09/24/2011 08/13/2023 Discontinuedezetimibe 10 mg oral tablet (10 sources)Dietary Cholesterol Absorption InhibitorStart: 04-29-2022 End: 62-57-0976fllu 1 tablet by mouth once daily at bedtimeezetimibe (Zetia) 10 mg tablet Indications: Mixed hyperlipidemia Take 1 tablet (10 mg) by mouth once daily at bedtime. 90 tablet 3 11/12/2024 11/12/2025 Activefluticasone propionate 0.05 mg/actuat metered dose nasal spray (3 sources)CorticosteroidStart: 50-53-3652Nktpigbndzl Propionate (Flonase Allergy Relief) 50 mcg/actuation [place],Suspension Active 2 SPRAY INTRANASAL Daily February 21, 2017 1:00am End: 44-30-3041beov 2 spray(s) nasal route once dailyfluticasone (VERAMYST) 27.5 MCG/SPRAY nasal spray 2 sprays by Each Nostril route daily 0 08/25/2023 Discontinued (LIST CLEANUP)ibuprofen 600 mg oral tablet (1 source)Nonsteroidal Anti-inflammatory DrugStart: 09-01-2023 End: 28-17-8267fkdl 1 tablet by mouth at bedtimeibuprofen (ADVIL;MOTRIN) 600 MG tablet Take 1 tablet by mouth in the morning, at noon, and at bedtime for 30 doses 30 tablet 0 09/01/2023 09/11/2023 Activelabetalol (NORMODYNE;TRANDATE) injection 10 mg (1 source)Start: 45-39-4048ftjipcdrf (NORMODYNE;TRANDATE) injection 10 mg lansoprazole 30 mg delayed release oral capsule (7 sources)Proton Pump InhibitorStart: 02-99-9402wacbfiyfytda (Prevacid) [address] capsule 1 capsule (30 mg) once daily. 05/23/2023 Biynvh52 ml lidocaine hydrochloride 10 mg/ml injection (1 source)Antiarrhythmic, Amide Local AnestheticStart: 09-01-2023 End: 53-60-9691ghpngwzlg PF 1 % injection 1 mL12 hr loratadine 5 mg / pseudoephedrine sulfate 120 mg extended release oral tablet (7 sources)alpha-Adrenergic AgonistStart: 20-23-3323flkz 1 tablet by mouth every twelve hoursloratadine-pseudoephedrine (Claritin-D 12 Hour) 5-120 mg 12 hr tablet Take 1 tablet by mouth every 12 hours if needed. 08/13/2023 ActiveStart: 83-44-2790azdd 5-120 mg by mouth once as neededloratadine-pseudoephedrine (CLARITIN-D 12 HOUR) 5-120 MG per extended release tablet Take 1 tablet by mouth 2 times daily as needed 08/13/2023 ActiveStart: 10-53-4458keyq 1 tablet by mouth every twelve hours as neededloratadine-pseudoephedrine ER (CLARITIN-D 12 HOUR) 5-120 mg per tablet Take 1 tablet by mouth two times a day as needed. for allergy symptoms. 0 08/13/2023 Active End: 17-87-5052Hlyrmgdwzm-Pseudoephedrine (CLARITIN-D 12 HOUR PO) Take by mouth 0 08/25/2023 Discontinued (LIST CLEANUP)metoprolol tartrate 25 mg oral tablet (2 sources)beta-Adrenergic BlockerStart: 24-76-0220Jbbitvypun Tartrate 25 mg Tablet Active 12.5 MG PO Twice daily February 24, 2017 1:00amStart: 42-91-0303iyhv 12.5 mg by mouth twice dailyMetoprolol Tartrate Active 12.5 MG PO Twice daily February 24, 2017 1:00amnaloxone 0.4 mg in 10 mL sodium chloride syringe (1 source)Start: 00-86-2565dqusodde 0.4 mg in 10 mL sodium chloride syringe nitroglycerin 0.4 mg sublingual tablet (3 sources)Nitrate VasodilatorStart: 59-71-0388Zuguvggrqicwl 0.4 mg Tablet, Sublingual Active 0.4 MG SUBLINGUAL Q5M as needed for Chest Pain 25 30December 2016 1:00amondansetron 4 mg disintegrating oral tablet (3 sources)Serotonin-3 Receptor AntagonistStart: 25-85-8761vizf 1 tablet by mouth every eight hours as needed for nausea and vomitingOndansetron 4 mg tablet,disintegrating Active 4 MG PO Every 8 hours as needed for nausea and vomiting August 12, 2024 5:56amStart: 73-39-4363acqi 1 tablet by mouth three times daily as needed for nauseaondansetron (ZOFRAN) 4 MG tablet Take 1 tablet by mouth 3 times daily as needed for Nausea or Vomiting 30 tablet 0 09/01/2023 ActiveStart: 23-02-4257jqet 1 tablet by mouth every six hours as needed for nauseaondansetron (ZOFRAN) 4 MG tablet Take 1 tablet by mouth every 6 hours as needed for Nausea or Vomiting 20 tablet 1 10/21/2022 Suspendedpantoprazole 40 mg delayed release oral tablet (3 sources)Proton Pump InhibitorStart: 85-93-4356zoiccjxhtkof DR (PROTONIX) 40 mg tabletMiralax (2 sources)Osmotic LaxativeStart: 04-66-5893hhaj 17 g by mouth once dailyMiraLax 17 gm, Oral, Daily, Refill(s) 0 Start Date: 05/03/22 Status: OrderedPolyethylene Glycols (2 sources)Start: 72-93-3240Demfoqbyyjwm Glycol 3350 (MIRALAX PO) Take 17 g by mouth 05/03/2022 ActiveStart: 24-12-2728Vhwylfvpctng Glycol 3350 (MIRALAX PO) Take 17 g by mouth 0 05/03/2022 Suspendedprochlorperazine 5 mg/ml injectable solution (1 source)PhenothiazineStart: 09-01-2023 End: 03-53-8612dxqtwvoguyzjsokc (COMPAZINE) injection 5 mgsimethicone 80 mg chewable tablet (2 sources)Start: 14-22-2213xkye 1 tablet by mouth four times daily as needed simethicone (MYLICON) 80 MG chewable tablet Take 1 tablet by mouth 4 times daily as needed for Flatulence 60 tablet 1 10/21/2022 Active5 ml sodium chloride 9 mg/ml injection (6 sources)Start: .9 % sodium chloride infusionStart: 09-01-2023 sodium chloride flush 0.9 % injection 5-40 mLtamsulosin hydrochloride 0.4 mg oral capsule (1 source)alpha-Adrenergic BlockerStart: 09-01-2023 End: 31-23-8382jdcp 1 capsule by mouth once dailytamsulosin (FLOMAX) 0.4 MG capsule Take 1 capsule by mouth daily for 7 days 7 capsule 0 09/01/2023 0 09/08/2023 Active Completed/Discontinued Medications MedicationDrug Class(es)DatesSig (Normalized)Sig (Original)estrogens, conjugated (assisted) 0.625 mg/ml vaginal cream (1 source)EstrogenStart: 09-10-2019 End: 51-17-6200jrfwocehxj estrogens (PREMARIN) vaginal cream Use 0.5 g vaginally once daily. 42.5 g 3 09/10/2019 08/13/2023 Discontinued2 ml famotidine 10 mg/ml injection (1 source)Histamine-2 Receptor AntagonistStart: 09-01-2023 End: 77-97-0290uiizybqxfd (PEPCID) 20 MG/2ML injection1 ml HYDROmorphone hydrochloride 1 mg/ml cartridge (3 sources)Opioid AgonistStart: 09-01-2023 End: 91-11-8385EDYHDqlrfvkfc (DILAUDID) 1 MG/ML injectionStart: 09-01-2023 HYDROmorphone (DILAUDID) injection 0.5 mgStart: 71-94-6087ERAROrkxcyckp (DILAUDID) injection 0.3 mgloratadine 10 mg oral capsule (5 sources)take 1 capsule by mouth once daily as neededloratadine (CLARITIN) 10 MG capsule Take 1 capsule by mouth daily as needed 0 Suspended End: 93-00-0582jdpf 1 tablet by mouth once dailyloratadine (Claritin) 10 mg tablet Take 1 tablet (10 mg) by mouth once daily. 08/21/2023 Discontinued (Side effects)phenazopyridine hydrochloride 100 mg oral tablet (2 sources)Start: 09-01-2023 End: 13-43-5590ufibvncrnyxzsha (PYRIDIUM) tablet 100 mgStart: 09-01-2023 End: 07-84-6816lqzhmdftchoijpz (PYRIDIUM) 100 MG tablet Problems Active Problems Problem ClassificationProblemDateDocumented DateEpisodic/ChronicAcute myocardial infarction (3 sources)Myocardial infarction; Translations: [Non-ST elevation (NSTEMI) myocardial infarction]Onset: 432165-58-3234NunhijqKgcr and rectal conditions (2 sources)Disorder of -18-3541HdgnibslMsrhehf disorders (4 sources)Anxiety; Translations: [Anxiety disorder, unspecified]Onset: 117799-77-0159TayuubhUfvltnuq of urinary tract (2 sources)Kidney xolfi56-26-0540MuortqdmImvxazyd atherosclerosis and other heart disease (8 sources)Ischemic cardiomyopathy; Translations: [Generalized ischemic myocardial dysfunction]Onset: 546597-42-0677MkiavmdOqlvhgkzq of lipid metabolism (10 sources)Hyperlipidemia; Translations: [Other and unspecified hyperlipidemia] Onset: 508253-68-5508QzghouiOpwyiwgvfceohh and diverticulitis (4 sources)Diverticulosis of large intestine without perforation or abscess without bleeding; Translations: [Diverticula of intestine]Onset: 06-03-2022 ChronicEsophageal disorders (6 sources)Gastroesophageal reflux disease without esophagitis; Translations: [Gastro-esophageal reflux disease without esophagitis]Onset: 31-74-0350Ezvmysz Essential hypertension (1 source)Hypertensive disorder; Translations: [Essential (primary) hypertension]36-68-6032TmdndctHtlklluiu and duodenitis (1 source)Unspecified chronic gastritis without bleeding; Translations: [UNS CHRONIC GASTRITIS W/O BLEEDING]Onset: 81-50-9087UbuoeslJycmpgblhizsk symptoms and ill-defined conditions (2 sources)Genuine stress incontinence; Translations: [Stress incontinence (female) (male)]Onset: 388815-51-5879FmqofulSkmrjptk; including migraine (1 source)Akdllmhb17-02-5152BivbvfuSghxnbxi; including migraine (1 source)Headache; including migraine; Translations: [Headache, unspecified] Onset: 03-04-3932Exlcdpbwqcnoi and screening for infectious disease (2 sources)Encounter for screening for human papillomavirus (HPV); Translations: [Encounter for screening for human papillomavirus (HPV)]Onset: 05-24-2024 EpisodicMood disorders (3 sources)Depressive disorder; Translations: [Depression]Onset: 09-03-2023 47-61-2331TcibadfGnye disorders (1 source)Mood disorders; Translations: [DEPRESSION UNSPECIFIED]Onset: 79-22-2795Ocgwc aftercare (1 source)half-way (current) use of aspirin; Translations: [TRANSMITTER ENGINEER CURRENT USE OF ASPIRIN]Onset: 70-48-5445MqeuevbnCqxrs aftercare (1 source)Other long term care phlebotomist (current) drug therapy; Translations: [OTH TRANSMITTER ENGINEER CURRENT DRUG THERAPY]Onset: 24-26-0353FfbaxdcaXorgu and ill-defined heart disease (14 sources)Takotsubo cardiomyopathy; Translations: [Takotsubo syndrome]Onset: 840159-27-3940GymfbafBbcts and ill-defined heart disease (1 source)Takotsubo syndrome; Translations: [Takotsubo syndrome]Onset: 65-68-0372IuwdxhnOfhfi circulatory disease (2 sources)Low blood zufvfzfk17-27-5832DqhmmpetCkphi connective tissue disease (2 sources)Plantar wlhrxaoof24-86-5988RtcymphpSlykh gastrointestinal disorders (3 sources)Altered bowel function; Translations: [Change in bowel habit]Onset: 43-63-2443BrabgcfbLqoqe gastrointestinal disorders (1 source)Change in bowel habit; Translations: [CHANGE IN BOWEL HABIT]Onset: 37-44-2119OxdawsyeLunxi nutritional; endocrine; and metabolic disorders (2 sources)Body mass index 30+ - obesity; Translations: [Obesity, unspecified] Onset: 707642-00-6608EpuhbwsVrmwt nutritional; endocrine; and metabolic disorders (2 sources)Obesity, unspecified; Translations: [Obesity, unspecified]Onset: 90-34-2660XrayrxjCbait screening for suspected conditions (not mental disorders or infectious disease) (1 source)Decreased cortisol level; Translations: [Other specified abnormal findings of blood chemistry]58-36-4757NvnzqdvgEvqwy upper respiratory disease (3 sources)Seasonal allergy; Translations: [Other seasonal allergic rhinitis] Onset: 154652-45-8012XowkxocFvtlzbch of female genital organs (7 sources)Herniated urinary bladder; Translations: [Cystocele, unspecified] Onset: 270125-31-7076FoozwhyVdvtzbbu codes; unclassified (2 sources)Obstructive sleep apnea syndrome; Translations: [Obstructive sleep apnea (adult) (pediatric)]Onset: 594462-49-5758PnxjcnhPhbpkcys codes; unclassified (1 source)Acquired absence of other specified parts of digestive tract; Translations: [ACQ ABSENCE OTH PART DIGESTV TRACT]Onset: 13-39-2472Mhgydtui Residual codes; unclassified (2 sources)Never smoked tobacco; Translations: [Other specified health status] Onset: 719140-57-6261PpkrnekpIrbzepzl codes; unclassified (2 sources)Other specified health status; Translations: [Other specified health status]Onset: 69-85-9387QiyxadvfAhhtyzsmlsp; intervertebral disc disorders; other back problems (3 sources)Cervical disc disorder; Translations: [Cervical disc disorder, unspecified, unspecified cervical region]Onset: 362777-93-4922Vvjlfht Unclassified (2 sources)Ischemic cardiomyopathy / I25.5(ICD-9)Onset: 93-60-8355Wsbtvczayfmt (1 source)Takotsubo syndrome / I51.81(ICD-9)Onset: 39-09-6707Qliwfhimytyu (2 sources)Finding of sensation of -34-6560 Past or Other Problems Problem ClassificationProblemDateDocumented DateEpisodic/ChronicAbdominal hernia (3 sources)Diaphragmatic hernia without obstruction or gangrene; Translations: [Diaphragmatic hernia]Onset: 92-40-5150XslxkbbfCronwuqtq pain (8 sources)Epigastric pain; Translations: [Epigastric pain]Onset: 05-03-2022 EpisodicDiabetes mellitus without complication (5 sources)Prediabetes; Translations: [Prediabetes]Onset: 875157-52-1758 EpisodicGenitourinary symptoms and ill-defined conditions (15 sources)Dysuria; Translations: [H/O: urethral stricture]Onset: 09-03-2023 93-92-5495FujvbaaeNzqidecbiinf breast conditions (1 source)Unspecified lump in the left breast, lower inner quadrant; Translations: [Unspecified lump in the left breast, lower inner quadrant]Onset: 60-86-5272FuupvovqZumcy and unspecified benign neoplasm (3 sources)Adrenal adenoma; Translations: [Benign neoplasm of unspecified adrenal gland]Onset: 041753-52-2936PceljqtnVwqiv female genital disorders (3 sources)Dysplasia of cervix; Translations: [Dysplasia of cervix uteri, unspecified]Onset: 304043-52-1288FbsbqedcKocvp gastrointestinal disorders (3 sources)Constipation; Translations: [Constipation, unspecified]Onset: 711947-43-0544GsstvngmDqphr nutritional; endocrine; and metabolic disorders (8 sources)Overweight in adulthood with body mass index of 25 or more but less than 30; Translations: [Overweight]Onset: 08-21-2023 Resolved: 697883-55-3113JyjcthkmDaqojuwk codes; unclassified (4 sources)History of vaginoplasty; Translations: [Other specified postprocedural states]Onset: 568641-98-6177MafolxdqKcqntomy codes; unclassified (2 sources)Postoperative state; Translations: [Other specified postprocedural states]Onset: 528351-19-8945QkldqposIfzskbut codes; unclassified (1 source)Other specified postprocedural states; Translations: [Other specified postprocedural states]Onset: 46-10-3189QiksfoquPademccoxtag (3 sources)Never smoked tobacco; Translations: [Never a smoker]Viral infection (1 source)Human papilloma virus infection; Translations: [Papillomavirus as the cause of diseases classified elsewhere]Onset: 829051-59-0810Mtwpvegt Results Test NameValueInterpretationReference RangeFacilityUS NON OB TRANSVAGINALon 99-46-1991NH NON OB TRANSVAGINALUTERUS REMOVED. BILATERAL OVARIES NOT VISUALIZED. NO FREE FLUID OR MASSES SEEN. UNREMARKABLE EXAM. Interpreted by: Pete Rod DO Signed by: Pete Rod DO 07/15/24 Final resultNoMount Carmel Health SystemHPV DNA High Riskon 05-26-2024 HPV InterpNormalCleveland Clinic Euclid HospitalComment on above:Result Comment: This test amplifies and detects DNA [...] suspected sexual abuse or for other forensic purposes.Performed By: #### HPVH #### [facility] [address] [place] [id number] Tactical Intelligence Officer: Niall Cheng MDHPV Type 16Not detectedProvidence Newberg Medical CenterComment on above:Performed By: #### HPVH #### [facility] [address] [place] [id number] Tactical Intelligence Officer: Niall Cheng MDHPV Type 18Not detectedProvidence Newberg Medical CenterComment on above:Performed By: #### HPVH #### [facility] [address] [place] [id number] Tactical Intelligence Officer: Nichole Valdez High Risk HPVNot detectedProvidence Newberg Medical CenterComment on above:Performed By: #### HPVH #### [facility] [address] [place] [address] Tactical Intelligence Officer: YRN ValdezV DNA High Riskon 85-04-0692SRB Sample.THIN PREPNormSelect Medical Specialty Hospital - Southeast OhioComment on above:Performed By: #### HPVH #### [facility]2 [place], [place] [id number] Tactical Intelligence Officer: Ratna Valdez.VAGINAL SPECIMENNormalCleveland Clinic Euclid HospitalComment on above:Performed By: #### HPVH #### [facility] [place], [place] [id number] Tactical Intelligence Officer: SHILO Valdezytology Reporton 28-30-6717Cbdakkbj report Cyto stain.thin prep Doc (Cvx/Vag)(NOTE) Path Number: [id number] DIAGNOSIS Imaged ThinPrep Pap - Vaginal (1 monolayer slide): Specimen Adequacy: Satisfactory for evaluation. Descriptive Diagnosis: Negative for intraepithelial lesion or malignancy. Comments: Specimen was screened at [facility], [address] [place] [address] Cytotech Screener: CS Electronically Signed Out CRISTINA [...] or for other forensic purposes. Performed at [facility], [address] [place] [address] . 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 The Pap smear is a screening test primarily for squamous epithelial lesions, which is subject to both false negative and false positive results. Your patient should be reminded to consult you immediately if she experiences any suspicious signs or symptoms, regardless of her Pap smear result. GYNECOLOGIC CYTOLOGY REPORT Patient Name: CHERYL HECTOR [facility] Rec: [id number] [facility] ANATOMIC PATHOLOGY [address] [place] [address]. [place], [place] [address] [facility] breast LT limitedon 50-34-2352SL breast LT limitedSELECT MEDICAL SPECIALTY [facility] [address] [place] [id number] Mammography Report Signed Patient: Cheryl Hector MR#: [id number] : 1965 Acct:[id number] Age/Sex: 58 / F ADM Date: 11/17/23 Loc: [place] Room: Type: [facility] Attending Dr: Sera Lambert MD Copies to: Sera Lambert MD Ordering Provider: Sera Lambert MD Date of Service: 11/17/23 MM/MM diagnostic mammo BI w/CAD: N63.20 ([id number]) US/US breast LT limited: N63.20 CLINICAL DATA: [...] next mammogram. Impression dictated by: Kunal Osorio M.D.11/17/2023 3:31 PM Dictation Location: [facility] Transcribed By: MAHESH 11/17/23 1531 Dictated By: Kunal Osorio II, MD 11/17/23 1511 Signed By: 11/17/23 [facility] Physician GroupSurgical Pathology Reporton 77-85-2897Xgubgcbw Pathology Report(NOTE) Path Number: [id number] -- Diagnosis -- VAGINAL MUCOSA: -SQUAMOUS MUCOSA WITH NO PATHOLOGIC DIAGNOSIS Quentin Keys D.O. 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 Sectioning reveals meza, rubbery cut surfaces with no masses or lesions identified. Supervisor Screen Making sections 1c. tm Sarah Dorseyer/dw1:09/01/2023 Microscopic Description Microscopic examination performed. Processing Lab: [address] [address] Interpretation Performed at [address] [address] SURGICAL PATHOLOGY CONSULTATION Patient Name: CHERYL HECTOR [facility] Rec: [id number] [facility] ANATOMIC PATHOLOGY [address] [place] [address]. [place], [place] [address] NormalMercy Kaiser Foundation HospitalECG [address] [place] 95-66-1871Oeeiei sinus rhythmCPRiverview Health Institute Work Phone: CNOVon 26-44-0948LJODAezmdl Visit (ENDOAV) CHERYL HECTOR ([id number]) 1965 F Date Time Provider Department 08/13/23 [...] (PREVACID) 30 mg capsule Gastric Acid Secretion Spiral Tube Winder Helper - Proton Pump Inhibitors (PPIs) loratadine-pseudoephedrine ER (CLARITIN-D 12 HOUR) 5-120 mg per tablet Take 1 tablet by mouth two times a day as needed. for allergy symptoms. 2nd Generation Antihistamine-Decongestant Combinations pantoprazole DR (PROTONIX) 40 mg tablet Gastric Acid Secretion Spiral Tube Winder Helper - Proton Pump Inhibitors (PPIs) ALLERGIES Allergen [...] cortisol and free cortis (more content not included)...NormalOhioHealth Southeastern Medical Center Visit (Cardiology)on 00-78-5250Wqxocs-up visitDiagnoses/Problems Assessed Takotsubo syndrome (429.83) (I51.81) Hyperlipidemia (272.4) [...] coronary artery disease. Her operativerisk is acceptable Plan 1. Patient will remain on the same medication. Patient agreed to go back to the area 2. Patient was counseled regarding risk factor modification 3. We'll see him back in the office in 1 year I will try to retrieve her recent labs from [facility] 4. The patient was advised to lose [...] Signs Recorded: 12Sep2022 12:04PM Heart Rate70, Apical Ybgekuqv024, LUE, Sitting Bmghohqqo35, LUE, Sitting Height5 ft 4 in Vjhfsr290 lb BMI Zaiotlbtwy27.67 kg/m2 BSA Calculated1.81 Tobacco Useb) No PHQ-2 #1. Over the last 2 weeks have you felt down, depressed or hopeless? (If yes, answer PHQ-9 below)No PHQ-2 #2. Over the last 2 weeks have you felt little interest or pleasure in doin (more content notincluded)...NormalUH TouchworksTobacco Screening.on 28-20-3067Vtyiv depression screening assessmentNoMP-[facility] E[facility] Centerk 600 DO Work Phone: Fall risk assessmenta) No falls within the last year -[facility] 600 DO Work Phone: Tobacco use status CPHSb) NoMP-[facility] 600 DO Work Phone: Ambulatory Visit Summaryon 68-59-1078Tutjhobrnq Visit Summary CHERYL HECTOR :1965 Visit Date:06/05/2022 [...] By Mouth Every day Contact prescribing physician ifquestions or concerns Unchanged polyethylene glycol 3350 (MiraLax) [...] for. Cholecystectomy Hypotension Kidney stone Plantar fasciitis MandoCone Healthkayleigh [facility] Surgery Office/Clinic Noteon 70-99-3226Cxziser Surgery Office/Clinic NoteChief Complaint post operative follow up HPI Staff [...] swallowing difficulties, no hearing loss, no ear infection(s),no nose bleeds. Cardiovascular: normal blood pressure, no [...] Diverticulosis of large intestine without perforation or abscesswithout bleeding) high fiber diet and daily fiber [...] 05/19/2020 Recorded SARS-CoV-2 (COVID-19) mRNA-1273 vaccine 04/21/2020 RecordedVeterans Health AdministrationComment on above:Result Comment: Electronically Signed By: BRENDA SOTO, Cristo Arias\.br\Date and Time Signed: 06/05/22 16:56 EDTPathology Noteon 20-11-7585Phgmeuykm [id number]#1.00CD:127 Veterans Health AdministrationOutside Colonoscopyon 17-31-2961Qyrrcfu [id number]#1.00CD:127Veterans Health AdministrationReminderson 28-10-2251Fwlntaofn From: Nedra Juares LPN To: N - Clinical; Sent: 05/30/2022 09:37:12 EST Show up: 05/01/2032 07:00:00 EST Subject: colonoscopy recall Due Date/Time: 05/29/2032 07:00:00 EST Reminder/Recall Patient is due for screening colonoscopy 05/29/2032.Veterans Health AdministrationFacesheeton 04-27-6692Izlwgwhhb [id number]#1.00CD:127Veterans Health AdministrationConsent for Procedure/Surgeryon 07-02-5086Clvefex for Procedure/Surgery [id number]#1.00CD:127Veter[facility] Health AdministrationAmbulatory Visit Summaryon 37-12-9897Kcllhhvgyt Visit Summary CHERYL HECTOR [place] :1965 Visit [...] By Mouth Every day Contact prescribing physician ifquestions or concerns Allergies Percocet 5/325 (Projectile vomiting) [...] for. Cholecystectomy Hypotension Kidney stone Plantar fasciitis NormalKettering Health PreblePhysician Referralon 04-26-2022 Physician [id number]#1.00CD:127Normal [facility] Hospital Of BaltimoreTobacco Screening.on 24-90-0005Yzmbz depression screening assessmentNo-[facility] [employer] 250 DO Work Phone: Tobacco use status CPHSb) NoMP-[facility] Ale 250 DO Work Phone: Vital Signs Date TimeVital SignValuePerforming KqdezsuygTlurelke53-21-7476 12:11-0400Body jnbkuq021.6 cmVamsi Serrano MD Work Phone: [phone])[address]08-22-2025 12:11-0400 Body mass index (BMI) [Ratio]30.97 kg/s0IktixjhVamsi Serrano MD Work Phone: 1(589)[address]11 [address]08-22-2025 12:11-0400 Body nofvle88.83 kgVamsi Serrano MD Work Phone: 1([phone])[address]08-22-2025 12:11-0400 Diastolic blood aqyxjesw90 mm[Hg]Vamsi Serrano MD Work Phone: 1([phone])[address]11 [address]08-22-2025 12:11-0400 Heart rate64 /Roldan Serrano MD Work Phone: 1(283)[address]08-22-2025 12:11-0400 Systolic blood qwuothwz756 mm[Hg]Vamsi Serrano MD Work Phone: 1(472)[address]05-22-2025 05:39-0400 Body culnva595.56 cmSera Lambert MD Work Phone: 1(018)[address]05-22-2025 05:39-0400 Body lrdevh52.7 kgSera Lambert MD Work Phone: 1(739)[address]05-22-2025 05:38-0400 Body esinwlkbsqj37.8 [degF]Sera Lambert MD Work Phone: 1(141)[address]05-22-2025 05:38-0400 Diastolic blood gvxlxode38 mm[Hg]Sera Lambert MD Work Phone: 1(848)23389 [address]05-22-2025 05:38-0400 Heart rate65 /Alfonso Lambert MD Work Phone: 1(767)94[address]05-22-2025 05:38-0400 Respiratory rate16 /Alfonso Lambert MD Work Phone: 1(251)[address]05-22-2025 05:38-0400 SaO2% (BldA) [Mass fraction]98 %Sera Lambert MD Work Phone: [facility]05-22-2025 05:38-0400 Systolic blood iyjdqpte624 mm[Hg]Sera Lambert MD Work Phone: [facility]06-10-2024 10:45-0400 Diastolic blood ffvhdvuf65 mm[Hg]Pete Rod DO Work Phone: [facility] [employer]06-10-2024 10:45-0400Heart rate66 /minPete Rod DO Work Phone: [facility] [employer] [facility] HOS[facility]ITALAnybotsEPLXIV59-92-7716 10:45-0400 Respiratory rate12 /minPete Rod DO Work Phone: [facility]ITALRun[facility]ITALAnybotsUPKYLZ73-98-8490 10:45-0684WkF7% (BldA) [Mass fraction]92 %Pete Rod DO Work Phone: [facility]ITALRun[facility]ITALAnybotsZUHCOS38-59-1213 10:45-0400Systolic blood aqiimcbc635 mm[Hg]Pete Rod DO Work Phone: [facility] [employer]06-10-2024 10:00-0400Body iuvvjszlilz82.3 [degF]Pete Rod DO Work Phone: [facility] [employer] [facility]ITALAnybotsECGPIS80-24-8715 06:13-0400Body kyaoar189.6 cmAndmartine Rod DO Work Phone: [facility] [employer]06-10-2024 06:13-0400Body mass index (BMI) [Ratio]29.52 kg/w8PcuioqPete Rod DO Work Phone: [facility] [employer]06-10-2024 06:13-0400Body cofjwk83.02 kgPete Rod DO Work Phone: [facility] [employer]05-30-2024 09:30-0400Body pskhco182.6 Troy Serrano MD Work Phone: [facility]05-30-2024 09:30-0400 Body mass index (BMI) [Ratio]29.87 kg/c6JrunrvoVamsi Serrano MD Work Phone: 2(135)792-[address] [place], [place] 1002305-30-2024 09:30-0400 Body nqjykk38.93 kgVamsi Serrano MD Work Phone: 1(124)[address]05-30-2024 09:30-0400 Diastolic blood yssirvjq60 mm[Hg]Vamsi Serrano MD Work Phone: 1(739)633-[address] [place], [place] 1002305-30-2024 09:30-0400 Heart rate74 /Roldan Serrano MD Work Phone: 0(812)559-[address] [place], [place] 1002305-30-2024 09:30-0400 Systolic blood aejdcvgl516 mm[Hg]Vamsi Serrano MD Work Phone: 3(390)796-[address] [place], [place] 1002305-22-2024 12:58-0400 Body yehvje968.6 cmDeirdre Montalvo MD Work Phone: [facility]05-22-2024 12:58-0400Body mass index (BMI) [Ratio]29.78 kg/e3PifehbDeirdre Montalvo MD Work Phone: [facility]05-22-2024 12:58-0400Body .7 kgDeirdre Montalvo MD Work Phone: [facility]05-22-2024 12:58-0400Diastolic blood hzyshfxj30 mm[Hg]Deirdre Montalvo MD Work Phone: [facility] HospitalComment on above:ALICIA BP Average 08-13-2023 12:58-0400Heart rate68 /Ivonne Montalvo MD Work Phone: [phone]05-22-2024 12:58-3672CjY3% (BldA) [Mass fraction]100 %Deirdre Montalvo MD Work Phone: [facility]05-22-2024 12:58-0400Systolic blood mm[Hg]Deirdre Montalvo MD Work Phone: [facility] HospitalComment on above:ALICIA BP Average 09-12-2022 12:04-0400Body gicozc327.56 cmEric E Mast Work Phone: 1(883) [phone]-Flzvj [place] E[facility]Al[facility] Centerk 600 DO Work Phone: 1([phone] 12:04-0400Body mass index (BMI) [Ratio] 28.67 kg/m2Eric E Mast Work Phone: 1(841) [phone]-Uacyl [place] E[facility]Al[facility] Centerk 600 DO Work Phone: 1(352) 639-662706-22-2023 12:04-0400Body surface area Derived from formula1.81 m2Eric E Mast Work Phone: 1(422) [phone]-UlqaaBuffalo Hospitalk 600 DO Work Phone: 1(587)[phone] 12:04-0400Body hsjkay33.75 kgEric E Mast Work Phone: 1(951) [phone]-Dytob [place] HeartAlbany Medical Centerk 600 DO Work Phone: 1(173) 276-715206-22-2023 12:04-0400Diastolic blood rdclyuop10 mm[Hg] Janna E Mast Work Phone: 1(363) [phone]-PnhgkBuffalo Hospitalk 600 DO Work Phone: 1([phone] 12:04-0400Heart rate70 /minEric E Mast Work Phone: 1(608) [phone]-GhmwyBuffalo Hospitalk 600 DO Work Phone: 1(601) 101-851506-22-2023 12:04-0400Systolic blood meauqvjg751 mm[Hg] Janna E Mast Work Phone: 1(127) [phone]-Pjpti [place] E[facility] Centerk 600 DO Work Phone: 1(281) 853-978302-10-2023 15:33-0500Blood Pressure LocationMichael NILL General Surgery Kwrpvbzb45-41-2783 15:33-0500Diastolic blood laxdpvkj51 mm[Hg]Cristo NILL [facility] Acmltdci52-57-8080 15:33-0500Heart rate 70 /minMichael NILL [facility] Surgery Rcldylby20-05-3789 15:33-0500 Respiratory rate16 /minMichael NILL [facility] Surgery Sfeiujxc10-50-1953 15:33-0500Systolic blood cqdycard637 mm[Hg]Cristo NILL [facility] Surgery Ucgmxexp95-58-3671 16:14-0500Diastolic blood hbdlwkih50 mm[Hg]Janna E Mast Work Phone: [phone]-Wgica [place] Gooddler DO Work Phone: 1(560) 450-891303-01-2022 16:14-0500Systolic blood cmwervbd125 mm[Hg] Janna E Mast Work Phone: 1(942) [phone]-Ifwmw [place] [employer] 250 DO Work Phone: 1(130) 193-283203-01-2022 15:57-0500Body ehwbch050.56 cmEric E Mast Work Phone: 1(631) [phone]-Mmvnc [place] Gooddler DO Work Phone: 1(639) 547-293603-01-2022 15:57-0500Body mass index (BMI) [Ratio] 28.32 kg/m2Eric E Mast Work Phone: 1(726) [phone]-Nfmgs [place] [employer] 250 DO Work Phone: 1(781) 648-278103-01-2022 15:57-0500Body surface area Derived from formula1.8 m2Eric E Mast Work Phone: [phone]-Hxlba [place] [employer]-Ev[employer] 250 DO Work Phone: 1(698) 438-410803-01-2022 15:57-0500Body vmqylt45.84 kgEric E Mast Work Phone: [phone]-Nyfzl [place] [employer] 250 DO Work Phone: 1(184) 372-926103-01-2022 15:57-0500Diastolic blood vxbztdhu421 mm[Hg]Janna E Mast Work Phone: [phone]-Lrnyr [place] [facility] 250 DO Work Phone: 1(796) 669-853903-01-2022 15:57-0500Heart rate80 /minEric E Mast Work Phone: [phone]-Vezdc [place] [facility] 250 DO Work Phone: 1(764) 407-785303-01-2022 15:57-0500Systolic blood agkbhfhv776 mm[Hg] Janna E Mast Work Phone: [phone]-Hicah [place] [facility] 250 DO Work Phone: 1(290) 124-220602-23-2022 10:56-9999712.2 1Eric E Mast Work Phone: [phone]-Qdzgo [place] [facility] 250 DO Work Phone: Comment on above:FSLDL Encounters Encounter DateEncounter TypeCare ProviderFacilityStart: 11-12-2024 End: 66-31-1342Pfnxrf outpatient visit 15 minutesMobo Serrano MD Work Phone: [facility] CenterComment on above:Takotsubo syndrome (Primary Dx); Mixed hyperlipidemia; Obesity (BMI 30-39.9); Never smoked tobacco; Obstructive sleep apneaStart: 11-12-2024 End: 84-49-3685eyoxwkolmhWGTIJSYMetropolitan Hospital Center AmbulatoryStart: 08-12-2024 End: 97-13-0725Fsfodzglu department patient visitSera Lambert MD Work Phone: [facility] Work Phone: Start: 05-24-2024 End: 65-13-3924mbcszbrlebZUONFIB M HOYMCommunity Regional Medical Centertart: 05-24-2024 End: 08-61-1411Pcznczwmf for gynecological examination (general) (routine) without abnormal findingsSERA Coffey [facility] Parktart: 05-24-2024 End: 74-69-3788Qlsmdweszp hospital visit by Chi Lambert MD Work Phone: stvZ PR LAB DOCTORStart: 11-17-2023 End: 19-32-1847Pcandco encounter procedureMD Sera Lambetr Work Phone: [facility] Work Phone: Start: 11-17-2023 End: 32-41-7704jhgvjaugxnJS Sera Lambert Work Phone: [facility] Work Phone: Start: 39-34-0351Aqx-patient / Non-visitMD Sera Lambert Work Phone: [facility] Work Phone: Start: 65-88-3099suvuixhvunMdgvmm Hamaty MD Work Phone: EndocrinologyStart: 74-56-3993Hkucgnq encounter procedureDeirdre Montalvo MD Work Phone: EndocrinologyComment on above:Checking if you've received blood work resultsStart: 09-01-2023 End: 34-10-7240gsmnxfvekwQXHCYXB M [facility] Hospitaltart: 09-01-2023 End: 02-34-7231Gootjdrapk hospital visit by Brittney Rod DO Work Phone: mhpb [place] ORComment on above:S/P anterior colporrhaphy w/ [place] dermis, Cystoscopy 09/01/23 (Primary Dx); Cystocele, unspecifiedStart: 08-21-2023 End: 21-28-1915Evvwkd outpatient visit 25 minutesMobo Serrano MD Work Phone: [facility] Medical CenterComment on above:Takotsubo syndrome (Primary Dx); Mixed hyperlipidemia; BMI 29.0-29.9,adult; Preop cardiovascular examStart: 08-21-2023 End: 51-84-9362Zslebio encounter statusVamsi Serrano MD Work Phone: [facility] Work Phone: Start: 29-79-8978jgjqyurlugHotywk Hamaty MD Work Phone: EndocrinologyStart: 06-31-1653Qcijksl encounter procedureDeirdre Montalvo MD Work Phone: EndocrinologyComment on above:Important Medical dx history info not mentionedStart: 08-13-2023 End: 34-64-7970bvnxzvqcozOWFTMRL M HOYFacility:[facility] Hospitaltart: 08-13-2023 End: 91-09-0709Cogjink encounter procedureDeirdre Montalvo MD Work Phone: EndocrinologyComment on above:Low serum cortisol level (Primary Dx); Prediabetes; Uncontrolled hypertensionStart: 53-17-5271ebfimrkrbeGnJose Serrano Facility:29[address]Dvqdl: 81-63-6855Zkkmdjj encounter procedureEric E Mast Work Phone: [phone]-NvwylMahnomen Health Center 600 DO Work Phone: Start: 06-05-2022 End: 52-88-8294bwiedxrsrnEtotiwr R NILLFacility:GS BellevueStart: 06-05-2022 End: 02-93-3208Ihmhxxy encounter procedureMichael R NILL General Surgery Nill/Said Byron Start: 61-20-8352Xjmhaqivz encounterEric E Mast Work Phone: [facility] 600 DO Work Phone: Start: 05-29-2022 End: 76-14-3357jjwcuzdfczDG CRISTO CROCKER .Facility:K4Tdjwv: 05-03-2022 End: 93-66-2954yjftqkforfAgceosj HoyFacility: BellevueStart: 05-03-2022 End: 28-30-8983Rflqtss encounter procedureMichael R NILL General Surgery Nill/Said Dia Start: 27-18-9156hvqrojoitpPoyhcub R NILLFacility: Julianatart: 50-82-0980Nvdtki outpatient visit 15 minutesEric E Mast Work Phone: [phone]-Xqobm [place] [facility] 250 DO Work Phone: Start: 85-24-7567FtrcwljjpeZBKOBUH TRABOULSSI Facility:1532Patient encounter statusEric E Mast Work Phone: [phone]-Ebiuh [place] [facility] 600 DO Work Phone: Procedures DateProcedureProcedure DetailPerforming ClinicianStart: 20-23-4542Fmtdwvxlzkt observation [Identifier] in Cervix by Cyto stainVamsi Serrano MD Work Phone: Start: 11-17-2023 End: 21-40-3145Qrzcucbwb mammographyMD Sera Hoy Work Phone: Start: 11-00-8358Xkqtoqkzqopupka of left breastMD Sera Hoy Work Phone: Start: 72-97-5181Ndj routine ecg w/least 12 lds w/i&r Vamsi Serrano MD Work Phone: Start: 50-53-5846FhvegjztrgmBpxqtry Traboulssi MD Work Phone: Start: 08-66-0035WouffsqwbxwDezctho NILL Start: 02-25-9082CxatftomsdfbthjvhqhomqyqncIltioit NILL Start: 68-95-0069Xgdo electrosurgical excision procedureMichael NILL Comment on above:Leep cone excision and endocervical curettageStart: 17-11-8171Toxtwekngheuvqunu with dilation of urethral stricture Cristo NILL Comment on above:also 10/05/2013Start: 02-21-2011 Cystourethroscopy with dilation of urethral strictureMichael NILL Cardiac catheterisationMichael NILL Cardiac catheterizationEric E Mast Work Phone: CholecystectomyEric E Mast Work Phone: CholecystectomyMichael NILL CystopexyMichael NILL CystoscopyEric E Mast Work Phone: History of cholecystectomyCholecystectomyMichael NILL Operative procedure on uterus AND/OR cervixEric E Mast Work Phone: TonsillectomyMichael NILL Total colonoscopyEric E Mast Work Phone: ureteral dilatation 3Michael NILL Comment on above:due to kidney stonesUrethropexyEric E Mast Work Phone: Plan of Treatment DateCare ActivityDetailAuthorStart: 00-93-8181Eqlhsuaej for malignant neoplasm of colonUnTriHealthSteight mile: 29-65-4625Urodhiipr for malignant neoplasm of cervixTrumbull Regional Medical CenterSteight mile: 10-25-2025 Diabetes ScreeningDiabetes ScreeningSt. Elizabeth Hospitaltart: 10-14-2025 End: 38-15-3953Ppvvlrz encounter kyrvpuwqz34/24/2026 9:10 AM EDT Office Visit [address] [place] [address] Vamsi Serrano MD [address] [facility] [address] [place] [address] [facility] Medical CenterStart: 96-42-6815Tykljp Adult PhysicalYearly Adult PhysicalUnMcKitrick Hospital: 71-61-2121Viwwhdqcg vaccinationInfluenza Vaccine (#1)[facility]: 47-21-0986Lefkilyby for malignant neoplasm of breastMammogramUnMcKitrick Hospital: 09-14-2024 End: 16-40-1915Qqnevhl encounter /24/2025 9:20 AM EDT Office Visit [address] [place] [address] Vamsi Serrano MD [address] [facility] [address] [place] [address] [facility] CenterStart: 06-15-2024 End: 49-80-6003Sidded pelvic tayviodlfvh00/25/2025 8:00 AM EDT Evaluation [facility] Urogynecology and Pelvic Nejuwijrrofvvl[address] [facility] [address] [place] [address] Almaz Walsh, MASTER SCHEDULER [address] [place] [address] [facility] Urogynecology and Pelvic RehabilitationStart: 06-03-2024 End: 88-97-4057Ofpqfy pelvic cgyciawqsuq78/13/2025 8:00 AM EDT Evaluation [facility] Urogynecology and Pelvic Qzlpzrxwcbjuqn6869 [facility] [address] [place], [place] [address] Almaz Walsh, MASTER SCHEDULER [address] [place], [place] [id number] [facility] Urogynecology and Pelvic RehabilitationStart: 05-27-2024 End: 88-38-0522Eupgzhm encounter yektcfewd48/06/2025 10:00 AM EST Office Visit [facility] Urogynecology and Pelvic Rehabilitation [address] [facility] [address] [place] [address] Zoë Rangel, PT [address] [facility] [address] [place] [address] [facility] Urogynecology and Pelvic RehabilitationStart: 40-51-0207WGBDU-19 Vaccine ( season)COVID-19 Vaccine ( season)[facility] HospitalStart: 07-86-0358Eorzlkoir vaccinationInfluenza Vaccine (Season Ended)[facility]: 53-54-4745Kqpglinxr vaccinationBON DETWILER [facility]ORIAL HOSPITALStart: 10-07-2023 End: 47-35-9356Iydcoxb encounter wcidniywy78/16/2024 3:00 PM EDT Office Visit [facility] Urogynecology and Pelvic Rehabilitation [address] [facility] [address] [place] [address] Pete Rod, DO [address] [facility] [address] [place] [address] [facility] Urogynecology and Pelvic RehabilitationComment on above:6 WK POStart: 46-19-3095AUI, Provider: Vamsi Serrano, Status: Pen, Time: 10:10 AMFUV, Provider: Vamsi Serrano, Status: Pen, Time: 10:10 AM-[facility] 600 DO Work Phone: Start: 09-08-2023 End: 50-81-3687Mdbvior encounter hhuwbzyii82/17/2024 9:00 AM EDT Office Visit [facility] Urogynecology and Pelvic Rehabilitation [address] [facility] [address] [place] [address] SharynSkye, MANAGING COGNITIVE ENGINEER - DIAMOND SELECTOR 6[address] [facility] Kieth [address] [place] [address] [facility] Urogynecology and Pelvic RehabilitationComment on above:1 WK POStart: 09-01-2023 End: 63-04-6018Azokqwoz colporraphy rpr cystocele w/cystoVAGINAL ANTERIOR REPAIR Cystocele, unspecified 09/01/2023 7:29 AM [facility] [place]Start: 08-21-2023 End: 98-31-5428Tymxw 1996 panel - Serum or PlasmaLipid Panel Lab Routine Mixed hyperlipidemia Expected: 08/21/2023 (Approximate), Expires: 08/20/2024[facility] Service [facility] Work Phone: Comment on above:Expected: 08/21/2023 (Approximate), Expires: 08/20/2024Start: 27-64-0503Tpopqydkcyz Syncytial Virus (RSV) or age 60 yrs+ (1 - 1-dose 60+ series)Respiratory Syncytial Virus (RSV) or age 60 yrs+ (1 - 1-dose 60+ series)[facility]: 2023 Respiratory Syncytial Virus (RSV) or age 60 yrs+ (1 - Risk 60-74 years 1-dose series)Respiratory Syncytial Virus (RSV) or age 60 yrs+ (1 - Risk 60-74 years 1-dose series)[facility]: 36-13-4568FSG High Risk: (Elderly (60+) or Population) (1 - Risk 60-74 years 1-dose series)RSV High Risk: (Elderly (60+) or Population) (1 - Risk 60-74 years 1-dose series)[facility]: 36-48-0725UNW patients and/or patients aged 60+ years (1 - 1-dose 60+ series)RSV patients and/or patients aged 60+ years (1 - 1-dose 60+ series) [facility]: 60-07-8665HCY Vaccine (1 - 1-dose 60+ series)RSV Vaccine (1 - 1-dose 60+ series)[facility]: 03-24-2023 Behavioral Health ScreeningBehavioral Health ScreeningSt. Elizabeth Hospitaltart: 28-21-8061Bqvmk-19 Vaccine ( season)Covid-19 Vaccine ( season)[facility]: 57-94-8887KSF, Provider: Vamsi Serrano, Status: Pen, Time: 2:00 PMFUV, Provider: Vamsi Serrano, Status: Pen, Time: 2:00 PMMP-[facility] CenterMc[facility] 600 DO Work Phone: Start: 46-42-8270DXB, Provider: Vamsi Serrano, Status: Pen, Time: 3:50 PMFUV, Provider: Vamsi Serrano, Status: Pen, Time: 3:50 PMMP-[facility] 250 DO Work Phone: Start: 39-44-9280Pbjoejqbnxrb vaccinationPneumococcal Vaccine (1 of 1 - PCV)[facility] CenterStart: 21-77-2498Qtwaawml vaccine (1 of 2)Shingles vaccine (1 of 2)[facility] Systemart: 81-62-3793Ccqefisj Vaccine (1 of 2)Shingrix Vaccine (1 of 2)[facility] Start: 84-40-4089Wdxvbo Vaccines (1 of 2)Zoster Vaccines (1 of 2)[facility] CenterStart: 28-41-7610Jbmgk panelLipid ScreeningSt. Elizabeth Hospitaltart: 27-27-0825Yowbptsmh for malignant neoplasm of colonMorrow County Hospital Start: 19-25-4453Ldmuh panelLipidsBON DETWILER MEMORIAL HOSPITALStart: 2003 Screening for malignant neoplasm of breastSt. Elizabeth Hospitaltart: 02-18-2002 Hepatitis B vaccine (2 of 3 - 19+ 3-dose series)Hepatitis B vaccine (2 of 3 - 19+ 3-dose series)[facility]art: 58-52-3048Rdppuoyct B Vaccines (2 of 3 - 19+ 3-dose series)Hepatitis B Vaccines (2 of 3 - 19+ 3-dose series) [facility] CenterSteight mile: 69-23-8157Mjvuavly screenDiabetes screen B[facility]: 65-81-0811Irnecmpyn for malignant neoplasm of cervixSt. Elizabeth Hospitaltart: 17-24-2882LQxW/Tdap/Td Vaccines (1 - Tdap) DTaP/Tdap/Td Vaccines (1 - Tdap)[facility]: 96-41-4622Vfjxntcpf for malignant neoplasm of cervixSt. Elizabeth Hospitaltart: 05-62-3806IBlZ/Tdap/Td vaccine (1 - Tdap)DTaP/Tdap/Td vaccine (1 - Tdap)[facility]: 28-21-6380Phjvcqqqdpky 50+ years Vaccine (1 of 2 - PCV)Pneumococcal 50+ years Vaccine (1 of 2 - PCV)[facility]: 02-47-4931Svlwd microalbumin profileDTaP,Tdap,Td Vaccine (1 - Tdap)[facility]: 60-35-4431Yaqkfuho mellitus screeningDiabetes ScreeningUniversity Hospitals St. [facility]: 80-05-7183Wtekhrznb C screeningMorrow County Hospital Start: 38-14-2046ALF screeningHIV ScreeningSt. Elizabeth Hospitaltart: 55-14-9200AFD screeningHIV screenBON [facility]: 09-20-1699Cohpbyedut MonitoringDepression MonitoringBon [facility]: 1975 Depression ScreenDepression ScreenBON [facility]: 07-24-1973 Hemoglobin A1c ebtcnpdbqfcY9D test (Diabetic or Prediabetic)[facility]: 58-44-7186LPG Vaccines (1 of 1 - Standard series)MMR Vaccines (1 of 1 - Standard series)[facility] CenterSteight mile: 14-61-6335ARE screeningHIV ScreeningUniversity Hospitals St. [facility]: 75-83-4015Qnizl panelLipid PanelUniversity Hospitals St. [facility]: 74-81-6196Irwtowjgd for malignant neoplasm of colonTrumbull Regional Medical CenterSteight mile: 1963 Yearly Adult PhysicalYearly [facility] End: 12-09-8705Utvsrwt [Mass/volume] in Serum or PlasmaPOCT Glucose Point of Care Testing Routine One Time for 1 Occurrences starting 09/01/2023 until 08/22ON [employer] on above:One Time for 1 Occurrences starting 09/01/2023 until 09/01/2023 End: 33-24-1247HEI CytologyGYN Cytology Lab Routine Once for 1 Occurrences starting 05/24/2024 until 5Bon [employer] on above: Once for 1 Occurrences starting 05/24/2024 until 05/24/2024 End: 31-72-7169DPFXWTWL PACU OXYGEN THERAPY PROTOCOLInitiate PACU Oxygen Therapy Protocol Respiratory Care Routine Continuous until discontinued starting 09/01/2023 [employer] on above:Continuous until discontinued starting 09/01/2023Oxygen therapy [Minimum Data Set]Initiate Oxygen Therapy Protocol Respiratory Care Routine As Needed until discontinued starting 08/22 [employer] Work Phone: Comment on above:As Needed until discontinued starting 09/01/2023atient EducationMigraine in adultsWyandot Memorial Hospital Ctr Work Phone: Patient referralWyandot Memorial Hospital Ctr Work Phone: End: 03-91-4655Sbpshlifr, urine POCTPregnancy, urine POCT Point of Care Testing Routine One Time for 1 Occurrences starting 09/01/2023 until 09/01/2023ON [employer] on above:One Time for 1 Occurrences starting 09/01/2023 until 09/01/2023Surgical PathologySurgical Pathology Lab Routine Cystocele, unspecified Release Upon Ordering for 1 Occurrences starting 09/01/2023ON [employer] Work Phone: Comment on above:Release Upon Ordering for 1 Occurrences starting 09/01/2023 End: 71-29-7729OLXNFAKT PATHOLOGY REPORTSURGICAL PATHOLOGY REPORT Lab Routine Once for 1 Occurrences starting 09/01/2023 until 09/01/2023ON [employer] on above:Once for 1 Occurrences starting 09/01/2023 until 09/01/2023 Immunizations Immunization DateImmunizationNotesCare NdvfvjbkQwrmprai07-14-9329trlkrxkfy, seasonal, injectableEric E Mast Work Phone: [phone]-KwnccMahnomen Health Center 600 DO Work Phone: [phone] virus vaccine, unspecified formulationDeirdre Montalvo MD Work Phone: [facility] HospitalLshusv66-65-1143ucdcdbqxx virus vaccine, unspecified formulationMichael NILL General Surgery Ibnsxsgn98-40-1689Tfbyriw COVID-19 Vaccine 100 MCG/0.5ML Intramuscular SuspensionEric E Mast Work Phone: [facility] Vmxzdpjq97-75-8304Wyabrml COVID-19 Vaccine 100 MCG/0.5ML Intramuscular SuspensionEric E Mast Work Phone: [facility] Mlufcjnu75-90-0137Myzbdum COVID-19 Vaccine 100 MCG/0.5ML Intramuscular SuspensionEric E Mast Work Phone: [facility] CenterSijefjiu58-37-8541axfygbiuw virus vaccine, unspecified formulationEric E Mast Work Phone: [phone]-AwqypCass Lake Hospital 250 DO Work Phone: [phone]nvvegl virus vaccine, unspecified formulationEric E Mast Work Phone: [phone]-UcgejCass Lake Hospital 250 DO Work Phone: [phone]qihfk, seasonal, injectableVamsi Serrano MD Work Phone: [facility] Work Phone: [phone] virus vaccine, unspecified formulationEric E Mast Work Phone: [phone]-DsvhpCass Lake Hospital 250 DO Work Phone: [phone]mkfjsv virus vaccine, unspecified formulationEric E Mast Work Phone: [phone]-[facility] 250 DO Work Phone: [phone]grplju B vaccine, adult dosageEric E Mast Work Phone: mp-[facility] 891 DO Work Phone: [phone]vs B vaccine, dialysis patient dosage Sera Lambert MD Work Phone: [facility] Payers DatePayer CategoryPayerPolicy [id number]-kwa [id number] Care ([facility] ..[id number]exq39-71-3010 [id number] 2.553130.3.57[id number] 2..327931.3.57[id number] ..519528.3.57[id number] .1.738264.3.57[id number] 2..1.545149.3.57[id number] 2.16.840.1.625561.3.57[id number] 2.16.840.1.312995.3.57[id number] 2.16.840.1.484241.3.57[id number] 2.16.840.1.233264.3.57[id number] 2.16.840.1.4[id number] 2.16.840.1.161314.3.579.2.531 Social History DateTypeDetailFacilityStart: 08-13-2023 End: 01-36-7095Rqojza alcohol useSocial alcohol useMP-[place] [address] DO Work Phone: Start: 05-03-2022 End: 90-65-8025Lycnegz smoking statusNever smoked tobacco (finding)General Surgery BellevueStart: 64-01-9723Jfxmhmc smoking statusNeverGeneral Surgery Garden CityevueStart: 08-13-2023 End: 30-39-2369Oeq Assigned At BirthFeOhioHealth Dublin Methodist Hospitaltart: 08-13-2023 End: 87-48-8764Pdnsvtc use and exposureSmokeless tobacco non-userSt. Elizabeth Hospitaltart: 08-13-2023 End: 65-44-5369Bckyobb intakeCurrent drinker of alcohol (finding)[facility]: 81-22-3778Icmbwmc CommentOnce a week or less.[facility]: 11-66-9526Xnn Assigned At BirthNot on fileSt. Elizabeth Hospitaltart: 08-11-2023 End: 94-31-5290Nixycrtq to SARS-CoV-2 (event)[facility] CenterStart: 39-91-3501Lmyvhsy Commentsocial-1x a weekBON DETWILER MEMORIAL HOSPITALStart: 32-81-7148Urv Assigned At [facility] Hospitaltart: 11-75-3847DedGllubf (finding)[facility] NEGATED: Highlighted rowStart: NINFHistory of tobacco usePassive smokerMorrow County Hospital Medical Equipment Procedure CodeEquipment CodeEquipment Original TextEquipment IdentifierDates System Bulking Proc Bulkamid Urethral - [id number]: 10-21-2022 Allograft [place] 6cm X 8cm Tutoplast Processed Dermis - [id number]: 09-01-2023 Functional Status NqzhSpzjwfdogdLtgvtzWfynturj23-73-1830Vfjkltjyff StatusN/AGeneral Surgery [facility] Clinical Notes 05-03-2022 to 11-12-2024 Note Date & OvzjDkfsUqfbejay14-52-1930 History of Present illness Narrative* Vamsi Serrano MD - 11/12/2024 11:30 AM EDT Chief Complaint Patient presents with Annual Exam Patient here for 1 year follow up for takotsubo syndrome, denies cardiac symptoms at this time. Subjective Cheryl Hector is a 59 y.o. female HPI Patient here for follow-up and management for previous presentation with stress cardiomyopathy resolved without any sequela, hyperlipidemia with history of intolerance to statin and some degree of noncompliance. Since last time I saw her she denies any change in cardiac status or symptoms. She reports she underwent several SIGNAL ENGINEER surgery for hysterectomy and rectocele repair. She denies any cardiac issues or complication. She reports lab work done through [facility]. ASSESSMENT: 1. Prior presentation with stress cardiomyopathy/takotsubo syndrome, echocardiogram subsequently showed normal ejection fraction. She denies any symptoms and describe functional class I. No recurrence 2. Hyperlipidemia with documented history of intolerance to statin. Has not been very compliant with her Zetia. She reports she had a lipid profile done at [facility] we will try to retrieve 4. Recent surgery including hysterectomy and rectocele repair without any cardiac issues or complication 5. Sleep apnea on CPAP 6. Recent finding of adrenal adenoma seen by endocrinology Plan 1. Patient will remain on the same medication. And I advised her to be compliant with her Zetia I will try to retrieve the result of her lipid profile 2. Patient was counseled regarding risk factor modification 3. We'll see him back in the office in 1 year I. I advised her to have a left fasting lipid profile 4. The patient was advised to lose weight and exercise. ROS Vitals: 11/12/24 1211 BP: 118/82 BP Location: Left arm Patient Position: Sitting Pulse: 64 Weight: 81.8 kg (180 lb 6.4 oz) Height: 1.626 m (5' 4 ) Objective Physical Exam Constitutional: Appearance: Normal appearance. [...] Nitrofurantoin monohyd/m-cryst, Amoxicillin, Atorvastatin, Ezetimibe, Oxycodone, Pravastatin, Zwomkoa-eqc-ciq reductase inhibitors, and Ciprofloxacin Current Medications Current Outpatient Medications Medication Instructions aspirin 81 mg EC tablet 1 tablet, Daily ezetimibe (ZETIA) 10 mg, oral, Nightly lansoprazole (PREVACID) 30 mg, Daily loratadine-pseudoephedrine (Claritin-D 12 Hour) 5-120 mg 12 hr tablet 1 tablet, Every 12 hours PRN Assessment/Plan 1. Takotsubo syndrome Follow Up In Cardiology Follow Up In Cardiology 2. Mixed hyperlipidemia ezetimibe (Zetia) 10 mg tablet 3. Obesity (BMI 30-39.9) 4. Never smoked tobacco 5. Obstructive sleep apnea Scribe Attestation By signing my name below, Ketty Vallecillo LPN , Scribe attest that this documentation has been prepared under the direction and in the presence of MD Dina. Provider Attestation - Scribe documentation All medical record entries made by the Scribe were at my direction and personally dictated by me. Ihave reviewed the chart and agree that the record accurately reflects my personal performance of the history, physical exam, discussion and plan. documented in this encounterTrumbull Regional Medical Center Work Phone: 1(189) 166-842308-22-2025 Instructions* Patient Instructions* Leesa Joaquin LPN - 11/12/2024 11:30 AM EDT Please bring all medicines, vitamins, and herbal supplements with you when you come to the office. Prescriptions will not be filled unless you are compliant with your follow up appointments or have a follow up appointment scheduled as per instruction of your physician. Refills should be requested at the time of your visit. BMI was above normal measurement. Current weight: 81.8 kg (180 lb 6.4 oz) Weight change since last visit (-) denotes wt loss 6.4 lbs Weight loss needed to achieve BMI 25: 35.1 Lbs Weight loss needed to achieve BMI 30: 6 Lbs Provided instructions on dietary changes Provided instructions on exercise. * Attachments The following attachments cannot be sent through Care Everywhere. * Heart Healthy Diet (Cymraes) documented in this encounterTrumbull Regional Medical Center Work Phone: [phone]) 998-833906-19-2024 Telephone encounter Note* Telephone Encounter - Deirdre Montalvo MD - 09/10/2023 5:24 PM EDT Labs August 19, 2023: BMP: normal. ACTH: 29.6 pg/ml (range 7-63) Cortisol: 12.9 ug/dl (range 6.2-19.4) Cortisol, free: 0.76 ug/dl (range 0.1-1.2) Aldosterone: 11.8 ng/dl Renin: Not received. Deirdre Montalvo MD, MORA [facility]06-19-2024 Miscellaneous Notes* Telephone Encounter - Deirdre Montalvo MD - 09/10/2023 5:24 PM EDT Labs August 19, 2023: BMP: normal. ACTH: 29.6 pg/ml (range 7-63) Cortisol: 12.9 ug/dl (range 6.2-19.4) Cortisol, free: 0.76 ug/dl (range 0.1-1.2) Aldosterone: 11.8 ng/dl Renin: Not received. Deirdre Montalvo MD, MORA * Telephone Encounter - Freda Cruz RN - 09/05/2023 11:17 AM EDT Labs are here, placed in folder. * Telephone Encounter - Freda Cruz RN - 09/05/2023 11:04 AM EDT Called [facility], she had to look back at labs from July and that were ordered by Dr. Montalvo.She found them will fax over. * Telephone Encounter - Freda Cruz RN - 09/04/2023 11:18 AM EDT Received lab results placed in folder. * Telephone Encounter - Freda Cruz RN - 09/04/2023 10:45 AM EDT Called MR at [facility]. They will fax labs over. * Telephone Encounter - Deirdre Montalvo MD - 09/03/2023 10:35 PM EDT Please obtain lab results from [facility], [place], [place]. Labs scanned on August 26, 2023 are from Apr, 2023. Results are not available on Care Everywhere. Deidrre Montalvo MD, MORA * Telephone Encounter - Mara Oviedo RN - 09/03/2023 12:40 PM EDT Patient requesting interpretation of lab results. Please see external 08/25. JACKIE: 08/13/2023 Next visit: Visit date not found Thank you! Patricia Oviedo RN documented in this encounterMorrow County Hospital06-14-2024 Telephone encounter Note * Telephone Encounter - Freda Cruz RN - 09/05/2023 11:17 AM EDT Labs are here, placed in folder. [facility]06-14-2024 Telephone encounter Note* Telephone Encounter - Freda Cruz RN - 09/05/2023 11:04 AM EDT Called [facility], she had to look back at labs from July and that were ordered by Dr. Montalvo.She found them will fax over. [facility]06-13-2024 Telephone encounter Note* Telephone Encounter - Freda Cruz RN - 09/04/2023 11:18 AM EDT Received lab results placed in folder. [facility]06-13-2024 Telephone encounter Note* Telephone Encounter - Freda Cruz RN - 09/04/2023 10:45 AM EDT Called MR at [facility]. They will fax labs over. [facility]06-12-2024 Telephone encounter Note* Telephone Encounter - Deirdre Montalvo MD - 09/03/2023 10:35 PM EDT Please obtain lab results from [facility], [place], [place]. Labs scanned on August 26, 2023 are from Apr, 2023. Results are not available on Care Everywhere. Deirdre Montalvo MD, MORA [facility]06-12-2024 Telephone encounter Note* Telephone Encounter - Mara Oviedo RN - 09/03/2023 12:40 PM EDT Patient requesting interpretation of lab results. Please see external 08/25. JACKIE: 08/13/2023 Next visit: Visit date not found Thank you! Patricia Oviedo RN [facility]06-06-2024 Hospital Discharge instructions* Discharge Instructions* Aileen Simeon RN - 08/28/2023 3:45 PM [...] limited to the following procedures. Please confirm yourprocedure below and pay attention to special considerations [...] your surgery to make sure you are doingwell and to answer questions. Your 1st post-op [...] (*See Special Considerations) -Short local travel (restaurant, hinduism) - Long distance travel > 1.5 hours [...] the office with any questions or concerns. [phone]. If during office hours, your issue may require an appointment. If after hours, the answering service will connect you with the physician Wet Process Assistant Head Miller. If you are concerned that your issue may be emergent, PLEASE CALL FIRST. Many issues may be resolved over the phone and avoid an unnecessary and expensive ER visit. If you truly have an emergency related to the surgery and call first: *You will be directed to the hospital ER in which you had your surgery. [facility] primarily or [facility] rarely. [facility] patients may be asked to report to [facility] if Dr. Rod's on-call partner is assuming responsibility. ER visits are ALWAYS covered by insurance (i.e. [facility] can go to a [facility] ER.) Calling 1st expedites your care & [...] may be offered for allergies or sensitivities. Pentwater 325/5mg tablets or alternative narcotic. Take 1-2 tablets by mouth every 4-6 hours as needed for pain. Per [facility] Board of Pharmacy laws, only 1 week of narcotics may be prescribed at a time. Do not take extra Tylenol (Acetaminophen) orally as Pentwater already contains the medicine. May take 500mg orally every 4-6 hours if off of Pentwater. * Ibuprofen 400-800mg is safe to take. [...] post-op course or situation. Zofran 4mg for nausea,Flomax 0.4mg for voiding. *You may resume taking [...] remove with time. You have the rest ofyour life to exercise, so some patience and rest is lizarraga in the short term in order to heal successfully in the long term care phlebotomist. Once you have fully recovered, you may focus on enjoying your life. Keep in mind, you will continue to heal for 6-12 months after surgery, so use common sense to protect your surgery (avoid repetitive heavy lifting, constipation, chronic pelvic strain.) In particular, if you had a hysterectomy, you may have both physical and emotional effects that maybe brief or long term care phlebotomist. After hysterectomy, periods will stop, and a [...] heightened response due to correcting painful pathology. O varian removal may decrease estrogenization, leading to vaginal dryness and menopausal hot flashes.Hormonal therapy may need to be discussed. SOME SURGERIES HAVE SPECIAL CONSIDERATIONS MAJOR For all major surgeries listed above, you may drive after your 1week post-op visit if cleared, havediscontinued narcotic pain meds, and are able to depress the brake quickly without pain. Long distance travel may be resumed in 4 weeks if stable. With major robotic hysterectomy, you should refrain from intercourse for 8 weeks, other hysterectomies 6 weeks. MINOR Minor surgeries may drive the next day any distance if off narcotic pain meds and are able to brakesafely. For minor vaginal surgeries for prolapse and [...] surgery, despite everything being done correctly and tothe medico-surgical standard, with resolve a condition 100% including but not limited to pain, prolapse, mesh erosion, urinary infections, bladder function, or defecatory dysfunction. Specifically, up to 20% of patients with abdominopelvic pain, 27% of those with UTI's, 16-26% with urinary incontine nce or voiding dysfunction, and 40% with defecatory [...] off anticoagulation because of bleeding, this could exposeher to life-threatening blood clots in the legs or lungs, UT, or stroke. Elderly patients over the age [...] reasonable improvement >5 years in pelvic support andurinary/fecal incontinence, as well as urinary infections, after [...] pelvic and/or urinary/fecal incontinence surgeries may only improveyour condition/s mildly and may not completely resolve [...] choices are a suprapubic catheter or intermittent self- catheterization. The patient has been given instructions on how to manage the typeof catheter chosen, which will be reiterated postoperatively. [...] have risks of resistance, diarrhea, and C. difficileinfection. Suprapubic catheters carry a risk of urinoma, bowel injury, and bleeding and have a UTI risk of 15-20%. Intermittent self-catheterization carries an 11% risk of a UTI. SPECIFICALLY, in regard to labial or perineal reconstructive surgery: You should expect some bruising and mild swelling with related discomfort following these surgeriesthat lasts 1-2 weeks. Ice packs and sitz [...] suture popping, scarring, and/or pain following the surgeryare rare but can happen. 5 SPECIAL INSTRUCTIONS [...] potential for small dime size clots, lasting 2-3weeks after your surgery. This should NOT be [...] and/or is accompanied by a foul smell andswelling, please call the office. DRAINS & WOUND [...] your body between your thumb and forefinger. Thensqueeze and pull the drainage tubing as you move towards the drain bulb, allowing the tube to slidebetween your fingers with mild resistance, you should [...] void on your own post-operatively. In particular, reconstructiveand incontinence surgeries (whether you had incontinence before surgery or not), sometimes have surgical effects of normal swelling and new positioning of the bladder may be associated with some mildto moderate postoperative urinary leakage. Often this leakage is urge related. As discussed, pre-operatively, up to 26% of patients with prolapse and negative urodynamic testing may develop de kamilah incontinence afterwards. Please do not be frustrated if temporary incontinence occurs for it will most likely improve as youcontinue to heal. Leakage rarely persists in the [...] due to swelling or anesthesia. This may lasta few hours to a few weeks. You [...] staff. You will continue this routine upon dismissal.While your catheter is plugged or clamped, the [...] or Mcmillan bag and an alcohol prep. Washyour hands thoroughly with soap and water and [...] bag again with tap water. Hang dry withthe cap off and the spout open. A commercially prepared urinary appliance hand fur cleaner may also be used as instructed. It is important that when it is time to remove the catheter, do so in the morning, because you willneed to urinate every 30-60 minutes on the day that you remove it. This is to keep the bladder empty and compressed, and to allow itself to heal. This is especially important for the suprapubic incision for those with suprapubic catheters. After removing the suprapubic catheter in particular, coverthe site with a Band-Aid for the 1st 24-48 hours. Drink at least 2 quarts of liquid a day. Avoid caffeinated drinks as they may irritate the bladder and cause bladder spasms. Please remember to call the office once a week until the catheter is removed with an update on yourprogress. 8 HOW TO CARE FOR YOUR MCMILLAN CATHETER - FEMALE About this Topic: Mcmillan catheter is a thin, flexible tube that drains urine from your bladder. The catheter connects to a special bag. The bag holds the urine until you are able to empty the bag. Youmay need to have a catheter for a [...] you were just told. This helps to makesure the staff has covered each thing clearly. It also helps to explain things that may have been abit confusing. Before going home, make sure you are able to do these: I can tell you about my condition. I can tell you how to prevent infection and care for the tube and bag of my Mcmillan catheter. I can tell you what I will do if my urine stops flowing or there is a burning or painful feeling inmy bladder. 10 At Home Voiding Trial & [...] to void once postoperatively. If you void 150- 200mls, you pass! Otherwise it is best to go home with an IUC. 2. During the day, clamp the IUC for 3-4 hrs. to comfort, then drain into day bag and repeat. 3. The IUC may be changed to the larger night bag for drainage & sleep. An at home VT may be done in / for: DAY 1 ____ Outpatient senior field service engineer surgeries, transurethral bulking injections, incontinence slings, vaginal [...] come out with gentle pulling, stop & callyour healthcare provider right away. Before 8AM on [...] office to update your voiding status at [phone]. If you cannot void within 6 hrs., [...] 50 mL syringes Self-Intermittent Catheterization Supplies: 100 #11-Hebrew female catheters (hydrophilic if possible) Lubricating jelly [...] availability and pricing. 13 [facility] History of Present illness Narrative* Bernice Gaona RN - 08/25/2023 11:44 AM EDT DAY OF SURGERY/PROCEDURE GUIDELINES As a patient at the [facility], you can expect quality medical and nursing [...] to get ready for surgery, your family willstay in the waiting room and visit with [...] your surgery/procedure (Hibiclens if directed) Do not applyany lotions. [place] your teeth, but do not swallow any [...] will need someone stay with you at homefor the first 24 hours following your surgery. This is due to the anesthesia and the medication given to you during surgery and recovery. [facility] History of Present illness Narrative* Vamsi Serrano MD - 08/21/2023 9:30 AM EDT Subjective Cheryl Hector is a 58 y.o. female Chief Complaint Follow-up; Pre-op Clearance HPI Patient is here for follow-up continue management for previous presentation with Takotsubo cardiomyopathy, hyperlipidemia, obesity and for preoperative risk assessment for SIGNAL ENGINEER surgery/procedure. Since last time I saw her she reports is feeling well. She denies any cardiac complaint. She underwent previous surgery for uterine prolapse and bladder repair without any cardiac issues or complication. Apparently she is scheduled to undergo a graft in the near future. Cardiac lizarraga she denies complaintof chest pain, palpitation, lightheadedness, dizziness or syncope. ASSESSMENT: 1. Prior presentation with stress cardiomyopathy/takotsubo syndrome, echocardiogram subsequently showed normal ejection fraction. She denies any symptoms and describe functional class I. No recurrence 2. Hyperlipidemia with documented history of intolerance to statin. Has not been compliant with herZetia. Has not had any lipid profile 3. [...] permission to hold aspirin for 7 days priorto surgery Review of Systems Constitutional: Positive for [...] Nitrofurantoin monohyd/m-cryst, Amoxicillin, Atorvastatin, Ezetimibe, Oxycodone, Pravastatin, Kzmgnng-vhu-opn reductase inhibitors, and Ciprofloxacin Current Medications Current [...] hr tablet, Take 1 tablet by mouth every12 hours if needed., Disp: , Rfl: Assessment/Plan [...] the direction and in the presence of MD Dina. Provider Attestation - Scribe documentation All medical record entries made by the Scribe were at my direction and personally dictated by me. Ihave reviewed the chart and agree that the record accurately reflects my personal performance of the history, physical exam, discussion and plan. [facility] Work Phone: 1(870) 926-553305-30-2024 Instructions* Patient Instructions* Roro Lagunas CMA - 08/21/2023 9:30 AM [...] time of your visit. documented [facility] Work Phone: 1(118) 354-589905-28-2024 NoteHNO ID: [id number] Author: DEIRDRE MONTALVO MD Service: ? Author Type: Physician Type: Progress Notes Filed: 08/19/2023 10:34 Note Text: The record sent by patient's PCP is reviewed. It included the same information as provided by the patient on her portal. Deirdre Montalvo MD, [facility]05-24-2024 NoteHNO ID: [id number] Author: DEIRDRE MONTALVO MD Service: ? Author Type: Physician Type: Progress Notes Filed: 08/15/2023 11:40 Note Text: Addendum: In a follow up [employer] message, patient indicated a diagnosis of benign adrenal adenoma. A copy of the CT scan report is requested. Also, I added labs for aldosterone, renin and BMP. She has uncontrolled/untreated hypertension. Deirdre Montalvo MD, [facility]05-22-2024 NoteHNO ID: [id number] Author: DEIRDRE MONTALVO MD Service: ? Author [...] (PREVACID) 30 mg capsule Gastric Acid Secretion Spiral Tube Winder Helper - Proton Pump Inhibitors (PPIs) loratadine-pseudoephedrine ER (CLARITIN-D 12 HOUR) 5-120 mg per tablet Take 1 tablet by mouth two times a day as needed. for allergy symptoms. 2nd Generation Antihistamine-Decongestant Combinations pantoprazole DR (PROTONIX) 40 mg tablet Gastric Acid Secretion Spiral Tube Winder Helper - Proton Pump Inhibitors (PPIs) ALLERGIES Allergen [...] is to be de (more content not included)...[facility] 08-13-2023 History of Present illness Narrative* Deirdre Montalvo MD - 08/13/2023 12:53 PM EDT HISTORY OF PRESENT ILLNESS: Cheryl Hector is [...] (PREVACID) 30 mg capsule Gastric Acid Secretion Spiral Tube Winder Helper - Proton Pump Inhibitors (PPIs) loratadine-pseudoephedrine ER (CLARITIN-D 12 HOUR) 5-120 mg per tablet Take 1 tablet by mouth two times a day as needed. for allergy symptoms. 2nd Generation Antihistamine-Decongestant Combinations pantoprazole DR (PROTONIX) 40 mg tablet Gastric Acid Secretion Spiral Tube Winder Helper - Proton Pump Inhibitors (PPIs) ALLERGIES Allergen [...] this possibility is to be determined based onabove labs. We may consider 1 mg dexamethasone [...] Deirdre Montalvo MD, MORA documented [facility]23 NoteOPERATIVE NOTE OPERATION DATE: 05/29/2022 PREOPERATIVE DIAGNOSIS: Epigastric [...] room in good condition. CC: Patient's family physicianThe [facility] [phone] NoteChief Complaint consultation for abdominal pain and change [...] swallowing difficulties, no hearing loss, no ear infection(s),no nose bleeds. Cardiovascular: normal blood pressure, no [...] stricture (12/29/2014), Cystourethroscopy with (more content not included)...[facility]bleComment on above:Result Comment: Electronically Signed By: BRENDA SOTO, Cristo Nascimento.bob\Date and Time Signed: 05/03/22 16:43 ESTEvaluation + Plan note No data available for this section General Surgery [place] Evaluation note* Diagnosis Low serum cortisol level- Primary Glucocorticoid deficiency Prediabetes Other abnormal glucose Uncontrolled hypertension Unspecified essential hypertension [facility] Diagnosis Takotsubo syndrome- Primary Mixed hyperlipidemia BMI 29.0-29.9,adult Preop cardiovascular exam Pre-operative cardiovascular examination documented in [facility] encounter [facility] Work Phone: Evaluation note* Diagnosis S/P anterior colporrhaphy w/ [place] dermis, Cystoscopy 09/01/23- Primary S/P anterior colporrhaphy w/ [place] dermis, Cystoscopy 09/01/23 Cystocele, unspecified documented in this encounter [facility] noteNo assessment information available [facility] Work Phone: Evaluation note* Diagnosis Takotsubo syndrome- Primary Mixed hyperlipidemia Obesity (BMI 30-39.9) Never smoked tobacco Obstructive sleep apnea Obstructive sleep apnea (adult) (pediatric) documented in this encounter [facility] Work Phone: History of Present illness Narrative* [...] 5. Reviewed with her her recent lab -[facility] DO Work Phone: History of Present [...] try to retrieve her recent labs from [employer] * 4. The patient was advised to lose weight and exercise. * 5. I reviewed with patient preoperative cardiac risk for her upcoming hysterectomy. I believe her operative risk is acceptable and she can proceed she was given permission to hold aspirin for 7 days prior to surgery [facility] DO Work Phone: Hospital Discharge instructions No data available for this section General Surgery [employer] Progress note No data available for this section General Surgery [place] Summary Purpose Family History No Family History Records FoundUnknown Family Member Name Dates Details Family history of diabetes m ellitus: Mother(V18.0, Z83.3) Status:ActiveHistory of PTCA: Mother(V45.82, Z98.61) Status:Active Unknown Family Member Name Dates Details History of PTCA: Mother(V45. 82, Z98.61) Status:ActiveFamily history of diabetes mellitus: Mother(V18.0, Z83.3) Status:Active Unknown Family Member Name Dates Details Family history of diabetes m ellitus: Mother(V18.0, Z83.3) Status:ActiveHistory of PTCA: Mother(V45.82, Z98.61) Status:Active Advance Directives No Advanced Directives Records Found Advance Directive Response Recorded Date/ Time Advance Directives No February 21, 2017 1:09pm Chief Complaint CHERYL HECTOR is being seen for an annual follow-up of.CHERYL HECTOR is being seen for poc hysterectomy. Reason for Referral SpecialtyDiagnoses / ProceduresReferred By ContactReferred To Contact Diagnoses Takotsubo syndrome Procedures ECG 12 Lead Vamsi Serrano MD [address] [place] [address], [place] [address] Referral IDStatusReasonSteight mile DateExpiration DateVisits RequestedVisits [id number]/30/20245/30/[id number] / Procedures Referred By ContactReferred To ContactCardiology Diagnoses Takotsubo syndrome Procedures Follow Up In Cardiology Vamsi Serrano MD [address] [facility] [address], [place] [id number] Vamsi Serrano MD [address] [facility], [place] [id number] Referral IDStatusReasonStart DateExpiration DateVisits RequestedVisits [id number]/30/20245/30/[id number] / Procedures Referred By ContactReferred To Contact Diagnoses Prediabetes Procedures ENDOCRINOLOGY DIETITIAN VISIT (MNT) MEDICAL NUTRITION ASSMT&IVNTJ INDIV EACH 15 UT MEDICAL NUTRITION ASSMT&IVNTJ INDIV EACH 15 UT MEDICAL NUTRITION ASSMT&IVNTJ INDIV EACH 15 UT MEDICAL NUTRITION ASSMT&IVNTJ INDIV EACH 15 UT Deirdre Montalvo MD [address] [place] [address] Referral IDStatusReasonStart DateExpiration DateVisits RequestedVisits [id number] PCP Requested Referral Chief Complaint and Reason for Visit Chief Complaint n63.20 Chief Complaint Admit Date Headache August 12, 2024 5:25a m Additional Source Comments INFORMATION SOURCE (unrecogn ized section and content) DATE CREATED AUTHOR 09/11/2017 [facility] DATE CREATED AUTHOR AUTHOR'S ORGANIZ ATION 06/03/2022 [facility] DATE CREATED AUTHOR AUTHOR'S ORGANIZ ATION 06/21/2022 [facility] DATE CREATED AUTHOR AUTHOR'S ORGANIZ ATION 09/13/2022 [facility] DATE CREATED AUTHOR AUTHOR'S ORGANIZ ATION 09/13/2022 [facility] DATE CREATED AUTHOR AUTHOR'S ORGANIZ ATION 08/19/2023 [facility] DATE CREATED AUTHOR AUTHOR'S ORGANIZ ATION 07/16/2024 [facility] DATE CREATED AUTHOR AUTHOR'S ORGANIZ ATION 09/05/2024 [facility] DATE CREATED AUTHOR AUTHOR'S ORGANIZ ATION 11/14/[address] [facility] Ambulatory Patient Care team informatio n (unrecognized section and content) Team Status: Active Member Role Status Dates Sera Lambert MD Primary Care Provider Active Team Status: Inactive Member Role Status Dates Sera Lambert MD Primary Care Provider Active Start: August 12, 2024 End: August 12, 2024PaKatarzyna Rosas ProviderActiveStart: August 12, 2024 End: August 12, 2024Team MemberRelationshipSpecialtyStart DateEnd Date Sera Lambert MD [address] [facility] [address] PCP - GeneralFamily Medicine08/13/23Team MemberRelationshipSpecialtyStart DateEnd Date Sera Lambert MD [address] [facility] [place] [address] PCP - GeneralFamily Medicine08/13/23Team MemberRelationshipSpecialtyStart DateEnd Date Sera Lambert MD [address] [place] [facility] [address] PCP - GeneralFamily Medicine08/21/23Team MemberRelationshipSpecialtyStart DateEnd Date Sera Lambert MD [address] [place] [address] PCP - GeneralFamily Medicine10/14/22Team MemberRelationshipSpecialtyStart DateEnd Date Sera Lambert MD [address] [place] [address] PCP - GeneralFamily Medicine08/13/23 Team Status: Active Member Role Status Dates Sera Lambert MD Primary Care Provider Active Start: September 07, 2023 Evelyn Piedra ProviderActiveStart: September 07, 2023 Team Status: Inactive Member Role Status Dates Sera Lambert MD Primary Care Provide r, Attending Provider Active Start: November 17, 2023 End: November 17, 2023Team MemberRelationshipSpecialtyStart DateEnd Date Sera Lambert MD [address] [place] [address] PCP - GeneralFamily Medicine10/14/22Team MemberRelationshipSpecialtyStart DateEnd Date Sera Lambert MD [address] [facility] [place] [address] PCP - GeneralFamily Medicine08/21/23 Source Comments (unrecognize d section and content) In the event this informatio n is protected by the Federal Confidentiality of Alcohol and Drug Abuse Patient Records regulations: The Federal rules restrict any use of the information to criminally investigate or prosecute any alcohol or drug abuse patient.[facility] HospitalIn the event this information is protected by the Federal Confidentiality of Alcohol and Drug Abuse Patient Records regulations: The Federal rules restrict any use of the information to criminally investigate or prosecute any alcohol or drug abuse patient.[facility] HospitalIn the event this information is protected by the Federal Confidentiality of Alcohol and Drug Abuse Patient Records regulations: The Federal rules restrict any use of the information to criminally investigate or prosecute any alcohol or drug abuse patient.[facility] Reason for Visit (unrecogniz ed section and content) IurzwuFrzvazuyFwvtqd-dqRlu-ti ClearanceSpecialtyDiagnoses / ProceduresReferred By ContactReferred To Contact Diagnoses Takotsubo syndrome Procedures ECG 12 Lead Vamsi Serrano MD [address] [place] [address] Referral IDStatusReasonStart DateExpiration DateVisits RequestedVisits [id number]/30/20245/30/[id number] / Procedures Referred By ContactReferred To Contact Diagnoses Cystocele, unspecified Cystocele, unspecified [N81.10] Procedures WY ANTERIOR COLPORRAPHY RPR CYSTOCELE W/CYSTO WY CYSTOURETHROSCOPY WY ANTERIOR COLPORRAPHY RPR CYSTOCELE W/CYSTO CYSTOSCOPY CYSTOCELE REPAIR AXIS DERMIS CAPIO NEEDLE CREATIVE WRITING TEACHER AND #4 [place], [place] [address] [address] [facility] [address] [place] [address] Referral IDStatusReasonSteight mile DateExpiration DateVisits RequestedVisits [id number] ExamPatient here for 1 year follow up for takotsubo syndrome, denies cardiac symptoms at this time.SpecialtyDiagnoses / ProceduresReferred By ContactReferred To ContactCardiology Diagnoses Takotsubo syndrome Procedures Follow Up In Cardiology Vamsi Serrano MD [address] [place] [address] Phone: tel: fax: Vamsi Serrano MD [address] [place] [address] Phone: tel: fax: Referral IDStatusReasonStart DateExpiration DateVisits RequestedVisits [id number]/30/20245/30/[id number] Ordered Prescriptions (unrec ognized section and content) PrescriptionSigDispensedRefillsStart DateEnd Date tamsulosin (FLOMAX) 0.4 MG capsule Take 1 capsule by mouth daily for 7 days 7 capsule cephALEXin (KEFLEX) 500 MG capsule Take 1 capsule by mouth 3 times daily for 7 days Please take for 5 days if discharged home without mcmillan catheter, take all 7 days if discharged home with mcmillan catheter. 21 capsule / oxyCODONE-acetaminophen (PERCOCET) 5-325 MG per tablet Indications:S/P anterior colporrhaphyTake 1 tablet by mouth every 6 hours as needed for Pain for up to 5 doses. Intended supply: 7 days.Take lowest dose possible to manage pain Max Daily Amount: 4 tablets 5 tablet / senna-docusate (SENOKOT S) 8.6-50 MG per tablet Take 1 tablet by mouth at bedtime 30 tablet ibuprofen (ADVIL;MOTRIN) 600 MG tablet Take 1 tablet by mouth in the morning, at noon, and at bedtime for 30 doses 30 tablet / ondansetron (ZOFRAN) 4 MG tablet Take 1 tablet by mouth 3 times daily as needed for Nausea or Vomiting 30 tablet Scheduled Active and Recently Administ ered Medications (unrecognized section and content) Medication Order/ ceFAZolin (ANCEF) 2,000 mg in sodium chloride 0.9 % 50 mL IVPB (mini-bag) (COMPLETED) 2,000 mg, IntraVENous, ONCE, 1 dose, On Fri09/01/23 at 0645, Antimicrobial Indications: Surgical Prophylaxis * 0737 (New Bag - Provider: Lucy Lovelace, MANAGING COGNITIVE ENGINEER - DOOR TO DOOR FUNDRAISING COLLECTOR) famotidine (PEPCID) 20 mg in sodium chloride (PF) 0.9 % 10 mL injection 20 mg, IntraVENous, ONCE, 1 dose, On Fri09/01/23 at 0730, Administer over 2 minutes., STAT * 0730 (Due) phenazopyridine (PYRIDIUM) tablet 100 mg (COMPLETED) 100 mg, Oral, ONCE, 1 dose, On Fri09/01/23 at 0645, Take with food. May cause discoloration of urine. * 0630 (Given - Provider: Elodia Esteves RN) sodium chloride flush 0.9 % injection 5-40 mL 5-40 mL, IntraVENous, EVERY 12 HOURS SCHEDULED (2 times per day), First dose on Fri09/01/23 at 0900, Until Discontinued, For Line Patency: Peripheral IV = 5 mL; Midline or Central Line = 10 mL/lumen.If following IV push medication, administer flush at same rate as the IV push. Flush volume is determined by type of infusion therapy being given. For non-viscous solutions use: Peripheral IV = 5 mL Midline or Central Line = 10 mL/lumen For viscous solutions (i.e. blood components, parenteral nutrition, contrast media, or after obtaining blood sample) use: Peripheral IV = 10 mL Midline or CentralLine = 20 mL/lumen, Pre-op (day of surgery) * 0900 (Due) * 2100 (Due) sodium chloride flush 0.9 % injection 5-40 mL 5-40 mL, IntraVENous, EVERY 12 HOURS SCHEDULED (2 times per day), First dose on Fri09/01/23 at 0900, Until Discontinued, For Line Patency: Peripheral IV = 5 mL; Midline or Central Line = 10 mL/lumen.If following IV push medication, administer flush at same rate as the IV push. Flush volume is determined by type of infusion therapy being given. For non-viscous solutions use: Peripheral IV = 5 mL Midline or Central Line = 10 mL/lumen For viscous solutions (i.e. blood components, parenteral nutrition, contrast media, or after obtaining blood sample) use: Peripheral IV = 10 mL Midline or CentralLine = 20 mL/lumen, PACU only * 0900 (Due) * 2100 (Due) Medication Order08/29///12/2023 lactated ringers IV soln infusion IntraVENous, at 125 mL/hr, CONTINUOUS, Starting on Fri09/01/23 at 0645, Pre-op (day of surgery) * 0624 (New Bag - Provider: Elodia Esteves RN) * 0729 (NoRateChange - Provider: Lucy Lovelace APRN - JUAN) * 0817 (New Bag - Provider: Lucy Lovelace APRN - JUAN) * 0855 (Anesthesia Volume Adjustment - Provider: Lucy Lovelace APRN - JUAN) Medication Order//12/2023 0.9 % sodium chloride infusion IntraVENous, at [...] less into rate field of order., Pre-op (dayof surgery) 0.9 % sodium chloride infusion IntraVENous, [...] doses, Starting on Fri09/01/23 at 0834, Until Discontinued,High Blood Pressure, for SBP greater than 180 [...] doses, Starting on Fri09/01/23 at 0834, Until Discontinued,Pain Moderate (4-6), For Phase I. If Phase II oral narcotics have been administered in the last 60 minutes, do not administer IV narcotics unless specifically approved by provider., PACU only * 0913 (Given - Provider: Aileen Simeon RN) HYDROmorphone (DILAUDID) injection 0.5 mg 0.5 mg, IntraVENous, EVERY 5 MIN PRN, 2 doses, Starting on Fri09/01/23 at 0834, Until Discontinued,Pain Severe (7-10), For Phase I. If Phase II oral narcotics have been administered in the last 60 minutes, do not administer IV narcotics unless specifically approved by provider., PACU only labetalol (NORMODYNE;TRANDATE) injection 10 mg(Linked Group 1) 10 mg, IntraVENous, EVERY 15 MIN PRN, 2 doses, Starting on Fri09/01/23 at 0834, Until Discontinued,High Blood Pressure, for SBP greater than 180 mmHg for 2 consecutive measurements taken from different sites., If heart rate is 60 bpm or less hold labetalol and use hydralazine if ordered, otherwisecontact provider. Inform provider if SBP is still greater than 180 mmHg, 10 minutes after second antihypertensive dose is administered., PACU only lidocaine PF 1 % injection 1 mL 1 mL, IntraDERmal, ONCE PRN, 1 dose, Starting on Fri09/01/23 at 0623, Until Fri09/02/23 at 0623, IVstart, Pre-op (day of surgery) naloxone 0.4 mg in 10 mL sodium chloride syringe IntraVENous, PRN, Opioid Reversal, Starting on Fri09/01/23 at 0834, PRN if respiratory rate is lessthan 6/min and patient is difficult to arouse [...] For viscous solutions (i.e. blood components, parenteral nutrition,contrast media, or after obtaining blood sample) use: Peripheral IV = 10 mL Midline or Central Line= 20 mL/lumen, Pre-op (day of surgery) * 0708 (Given - Provider: Elodia Esteves RN) sodium chloride flush 0.9 [...] For viscous solutions (i.e. blood components, parenteral nutrition,contrast media, or after obtaining blood sample) use: Peripheral IV = 10 mL Midline or Central Line= 20 mL/lumen, PACU only Medication Order//12/2023 ceFAZolin (ANCEF) 2 g injection 1 dose, Starting on Fri09/01/23 at 0627, Until Fri09/01/23 at 1829, Elodia Esteves: cabinet override,Elodia Esteves: cabinet override * 0630 (Due) famotidine (PEPCID) 20 MG/2ML injection (COMPLETED) 1 dose, Starting on Fri09/01/23 at 0706, Until Fri09/01/23 at 1914, Elodia Esteves: cabinet override,Elodia Esteves: cabinet override * 0708 (Given - Provider: Elodia Esteves RN) sevoflurane inhalation liquid Starting on Fri09/01/23 at 0715, For 1 dose, Lucy LOVELACE: cabinet override * 0730 (Due) Order Group 1: labetalol (NORMODYNE;TRANDATE) injection 10 mgJump to med 10 mg, IntraVENous, EVERY 15 MIN PRN, 2 doses, Starting on Fri09/01/23 at 0834, Until Discontinued,High Blood Pressure, for SBP greater than 180 [...] doses, Starting on Fri09/01/23 at 0834, Until Discontinued,High Blood Pressure, for SBP greater than 180 mmHg for 2 consecutive measurements taken from different sites
If heart rate is greater than 60 bpm, hold hydralazine and use labetalol if ordered, otherwise contact provider. Inform provider if SBP is still greater than 180 mmHg 10 minutes after second antihypertensive dose is administered.
PACU only Goals (unrecognized section and content) Goals may be documented in a n alternate section FOR RECORDS PERTAINING TO PATIENTS WHO ARE [...] BE BASED ON THE PRIMARY CLINICAL RECORDS. [facility] [employer] [facility]. provides no warranty or guarantee of the accuracy or completeness of information in this document.
== END 2025-01-19 15:34 | disposition home or self-care (01) ==
LOC: FHNEUROLOG 15:33
PROVIDERS: PCP Family Medicine; Visit Provider Psychiatry & Neurology Neurology
DX: G47.33 Obstructive sleep apnea (adult) (pediatric) (principal); G47.10 Hypersomnia, unspecified; R06.83 Snoring
CPT/HCPCS: G0463